=== PATIENT | male | born 1980 | race Two or more races ===

== ENCOUNTER → 2024-10-23 | Outpatient (CLI) | payer MEDICAID, SELFPAY ==
--- NOTE | 2024-10-23 | XR_ITS ---
Examination: Right elbow 3 views Technique: Elbow AP, oblique, lateral 3 views Exam date and time: October 23, 2024 1139 hours INDICATIONS: Chronic elbow pain years FINDINGS: Advanced elbow osteoarthritis Old bone densities at the medial and lateral humeral condylar regions No acute fracture There is a significant elbow effusion IMPRESSION: Advanced elbow osteoarthritis.
--- NOTE | 2024-10-23 | XR_ITS ---
Examination: Bilateral hands, 6 views. Technique: AP, Oblique, Lateral each hand total 6 views Date and time of exam: October 23, 2024 1139 hours INDICATIONS: Bilateral hand pain months. FINDINGS: Mild juxta-articular bone demineralization. No fracture or dislocation involving either hand No erosive or other significant arthritic change involving either hand Old healed fracture midportion right third metacarpal IMPRESSION: No erosive or other significant arthritic change involving either hand
== END | disposition home or self-care (01) ==
PROVIDERS: PCP Internal Medicine; Referring Provider Internal Medicine; Visit Provider Internal Medicine
DX: M19.021 Primary osteoarthritis, right elbow (principal); M79.642 Pain in left hand; M79.641 Pain in right hand; Z91.81 History of falling
CPT/HCPCS: 73080; 73130

== ENCOUNTER 2024-10-26 15:09 | Inpatient (IN) | payer MEDICAID, SELFPAY ==
[2024-10-26] VITALS (20 sets, daily range): BP systolic 102–162; BP diastolic 68–100; PULSE 90–106; RESP 11–34; TEMP 37.2–38.2; O2SAT 73–98; BMI 36.5; BMI 52.1; BMI 50.5
--- NOTE | 2024-10-26 15:44 | XR_ITS ---
Examination: AP chest single view Technique: AP portable semiupright chest single view Exam date and time: October 26, 2024 at 1632 hrs. Comparison September 17, 2024 Indications: Sepsis today Findings: Mild heart failure Moderate enlargement cardiac contour with prominent vascular congestion Pneumonia at both bases Prominent osteopenia Impression: Mild heart failure Bibasilar pneumonia
--- NOTE | 2024-10-26 15:47 | EDNOTE_ITS ---
ED General RME/HPI General Stated complaint: SOB Time Seen by Provider: 10/26/24 15:39 Arrival date/time: 10/26/24 15:09 RME / HPI RME / HPI narrative: 44 year old male with history of obesity, narcolepsy, hypertension, diabetes, schizophrenia, BHAVESH on 2L and CPAP presents to the ED BIBA for evaluation of shortness of breath today. Per medics, patient was evaluated at the clinic today for feeling unwell and while there noted to be falling asleep frequently, snoring, and saturating low on oxygen. While in the ED patient reports feeling short of breath for a few days accompanied by a cough. No other complaints reported. Denies fevers, chills, chest pain, abdominal pain, vomiting, diarrhea, or urinary symptoms. Related Data Home Medications ?Medication ?Instructions ?Recorded ?Confirmed metformin 500 mg tablet 500 mg PO BID Diabetes 07/13/20 09/16/24 carvedilol 6.25 mg tablet 6.25 mg PO BID 02/15/24 09/16/24 gemfibrozil 600 mg tablet 600 mg PO BID 02/15/24 09/16/24 haloperidol 10 mg tablet 10 mg PO BID 02/15/24 09/16/24 loratadine 10 mg tablet 10 mg PO QDAY 02/15/24 09/16/24 furosemide 20 mg tablet 20 mg PO Q OTHER DAY 03/26/24 09/16/24 fluticasone propionate 44 2 puff inhalation BID 08/28/24 09/16/24 mcg/actuation HFA aerosol inhaler Previous Rx's ?Medication ?Instructions ?Recorded ipratropium 20 mcg-albuterol 100 1 puff inhalation Q6H PRN 08/30/24 mcg/actuation mist for inhalation shortness of breath or wheezing #4 (Combivent Respimat) grams Allergies Allergy/AdvReac Type Severity Reaction Status Date / Time No Known Allergies Allergy Unverified 02/16/24 08:13 Review of Systems Review of Systems Narrative Review of Systems: GEN: No fever, no chills, no weight loss EYES: No discharge, no visual changes, no pain HEENT: No ear pain, no congestion, no sore throat PULM: +shortness of breath, + cough CV: No chest pain, no dyspnea on exertion, no palpitations GI: No nausea, no vomiting, no diarrhea, no pain, no constipation : No frequency, no urgency and no dysuria MUSC/SKEL No joint pain, no back pain SKIN: No rash PSYCH: No hallucinations, no depression HEME/LYMPH: No easy bleeding or bruising tendencies NEURO: No weakness, no headache Past Medical History Past Medical History CARDIAC: Positive Cardiac Disorders, Hypercholesterolemia and Congestive Heart Failure RESPIRATORY: Positive Chronic Obstructive Pulmonary Disease (COPD), Asthma and Sleep Apnea ENDOCRINE: Positive Endocrine Disorders PSYCHO/SOCIAL: Positive Schizophrenia and Recreational Drug Use OTHER HISTORY: Positive Chicken Pox Family History FAMILY HISTORY: Negative Family Cardiac Disorders Social History SMOKING STATUS: Never smoker SECOND HAND EXPOSURE: No ED Exam Narrative Physical exam: GENERAL APPEARANCE: Well hydrated, well nourished, episodes of narcolepsy, snoring. VITALS: All vitals were reviewed and the pulse ox is 94% on 2L nasal cannula which is adequate. HEENT: Normocephalic, atramatic, EOMI, EACs are patent. There is no bulge or retraction. Throat without erythema or exudate. Moist oromucosa. No jaundice NECK: Supple, no JVD or bruits. CARDIOVASCULAR: Heart regular without S3-S4 or murmur. No rubs or gallops. LUNGS/CHEST: Clear to auscultation bilaterally. No rales, rhonchi, or wheezing. Normal inspection. ABDOMEN: Soft, obese, nontender, with normal bowel sounds. No pulsatile masses. No rebound, rigidity, or guarding. No incarcerated hernia.` EXTREMITIES: Normal inspection and palpation. 2+ pitting edema to BLE, no clubbing or cyanosis. SKIN: Warm and dry without rashes. Normal inspection. MUSCULOSKELETAL: Normal inspection. No gross deformity, full ROM all extremities NEURO: Alert and oriented x3. Cranial nerves II through XII grossly intact. There are no other motor or sensory deficits noted. PSYCHIATRIC: Normal mood and affect. No psychosis. Course Quality Measures none Orders Category Date Time Status Bedside COVID-19 Antigen Test NOW Care 10/26/24 15:42 Active Bedside Influenza A&B Antigen Test NOW Care 10/26/24 15:43 Completed EKG (ED ONLY) *Do not use* NOW Care 10/26/24 16:06 Completed EKG (ED Only) Stat Exams 10/26/24 16:05 Draft XR chest 1V portable Stat Exams 10/26/24 15:44 Taken BNP [B-Type Natriuretic Peptide] Stat Lab 10/26/24 16:10 Completed Blood Culture (Lab) Stat Lab 10/26/24 16:00 Received CBC Stat Lab 10/26/24 16:10 Completed CMP [Comprehensive Metabolic Panel] Stat Lab 10/26/24 16:10 Completed Drug Screen,Urine Stat Lab 10/26/24 15:54 Ordered Lactic Acid [Lactate (Lactic Acid)] Stat Lab 10/26/24 16:10 Completed Procalcitonin Stat Lab 10/26/24 16:10 Completed UA, C/S IF [Urinalysis, C/S if Indicated] Stat Lab 10/26/24 15:43 Ordered Venous Blood Gas Stat Lab 10/26/24 16:10 Completed ALBUTEROL RT 0.5ml [Proventil Rt 0.5ml] Med 10/26/24 16:06 Discontinued 10 mg HHN X1 ONE Acetaminophen Ivpb [Ofirmev Inj] Med 10/26/24 17:32 Ordered 1,000 mg in 100 ml IV X1 Acetaminophen Tab [Tylenol ES Tab] Med 10/26/24 15:42 Discontinued 1,000 mg PO X1 ONE Oseltamivir [Tamiflu] Med 10/26/24 16:35 Discontinued 75 mg PO X1 ONE Sodium Chloride 0.9% 1000 ml [Ns] 2,000 ml Med 10/26/24 17:43 Ordered IV 150 mls/hr Sodium Chloride 0.9% 1000 ml [Ns] 2,000 ml Med 10/26/24 15:44 Discontinued IV 999 mls/hr Sodium Chloride Rt Katarina 0.9% [NS Rt Katarina 0.9%] Med 10/26/24 16:06 Active 3 ml INH PRN PRN cefTRIAXone/D5w 1gm IV premix [Rocephin/D5w 1gm IV Med 10/26/24 15:43 Discontinued premix] 50 ml IV X1 BiPAP / CPAP NOW RT 10/26/24 16:08 Active Vital Signs Vital signs: Vital Signs Temperature 100.8 F H 10/26/24 15:13 Pulse Rate 101 H 10/26/24 15:13 Respiratory Rate 22 H 10/26/24 15:13 Blood Pressure 160/68 H 10/26/24 15:13 Pulse Oximetry (%) 94 L 10/26/24 15:13 Oxygen Delivery Method Nasal Cannula 12/20/24 15:13 Oxygen Flow Rate 2 10/26/24 15:13 [facility] Patient data External records reviewed:: [facility] previous records (I reviewed admission 09/16/2024 through 09/19/2024) Clinical information provided by:: patient Social determinants that could affect healthcare access:: none Patient has the following chronic illnesses:: obesity, narcolepsy, hypertension, diabetes, schizophrenia, BHAVESH on 2L and CPAP How is presenting disease/condition affected by chronic disease/condition?: e xacerbated by Evaluation data The following diagnostics were reviewed and interpreted by me:: lab results and radiology exam(s) Lab and/or radiology exams considered but not ordered:: None Interpretation Summary: As noted above Medications Medications considered but not ordered:: None Medication administrations:: Medication Administration History Sodium Chloride (Sodium Chloride Rt Katarina 0.9% 3 Ml Nebu) 3 ml INH PRN PRN PRN Reason: SOLN Stop: 11/25/24 16:05 Last Admin: 10/26/24 16:45 Dose: 3 ml Documented By: ELY Discontinued Medications Acetaminophen (Acetaminophen 500 Mg Tablet) 1,000 mg PO X1 ONE Stop: 10/26/24 15:43 Albuterol (Albuterol Rt 2.5 Mg/0.5 Ml Nebu) 10 mg HHN X1 ONE Stop: 10/26/24 16:07 Last Admin: 10/26/24 16:45 Dose: 10 mg Documented By: ELY Ceftriaxone Sodium/Dextrose (Rocephin/D5w 1gm Iv Premix) 50 mls @ 100 mls/hr IV X1 ONE Stop: 10/26/24 16:12 Last Admin: 10/26/24 17:11 Dose: 100 mls/hr Documented By: FREDERICK Sodium Chloride (Ns) 2,000 mls @ 999 mls/hr IV .Q2H1M ONE Stop: 10/26/24 17:44 Last Admin: 10/26/24 17:17 Dose: Not Given Documented By: FREDERICK Non-Admin Reason: Cancelled by Provider Oseltamivir Phosphate (Oseltamivir 6 Mg/Ml) 75 mg PO X1 ONE Stop: 10/26/24 16:36 See above Consultations Consultation(s) initiated? (list below): Yes Consultation #1 (Physician, Specialty, Details): I spoke with resident Dr. Lobato working with Dr. Andrews. Discussed patients PMHx, HPI, ED course, exam findings, labs, and radiology results. Diagnosis Differential Diagnosis ED Complaint MDM: URI, viral illness, pneumonia Most likely diagnosis given after review of the tests above:: Pneumonia. Influenza B. Sepsis Admission Indicated Admission indicated?: indicated Explain why admission is indicated or not indicated:: Pneumonia. Influenza B. Sepsis. Also history of narcolepsy and severe sleep apnea Admission Request Was there a request for admission?: Yes Admission Attestation Admission request attestation: Discussed case with [] from Hospitalist service regarding admission. Discussed patients ED course, exam findings, labs, and radiology results. The Hospitalist [agrees,declines] to accept the patient for admission. Disposition Plan Disposition Plan: Admit Medical Decision Making MDM Narrative MDM Narrative: CBC negative. CMP negative. Venous blood gas showing no CO2 retention. Lactic acid and procalcitonin negative. COVID-19 negative. Positive for influenza B. BNP is negative. Chest x-ray interpreted by me: Cannot rule out CHF. Heart is enlarged. Cannot rule out pneumonia. Mediastinum normal. Normal bones. No pneumothorax. In the emergency department the patient was given IV fluid and Tylenol and IV antibiotic according to the septic protocol. I did not give him a bolus because he is had a history of CHF and the chest x-ray may consistent with CHF however BNP is negative. The patient was also put on a BiPAP treatment and albuterol in nebulizer treatment by me. Twelve-lead EKG showing according to my interpretation: Normal sinus rhythm. Heart rate of 99. Normal axis. No ST elevation or depression. No PVC. No STEMI. Regular rate and rhythm. 5:40 PM, I spoke to and discussed with Dr. Lobato, resident of Dr. Sims, hospitalist on-call. She is assessing the patient for admission now. Critical care time is approximately 45 minutes excluding any procedure. The high probability of sudden, clinically significant deterioration in the patient?s condition required the highest level of my preparedness to intervene urgently. The services I provided to this patient were to treat and/or prevent clinically significant deterioration. Services included the following: chart data review, reviewing nursing notes and/or old charts, documentation time, oracle hyperion consultant collaboration regarding findings and treatment options, medication orders and management, direct patient care, vital sign assessments and ordering, interpreting and reviewing diagnostic studies and lab tests. Aggregate critical care time includes only time during which I was engaged in work directly related to the patient?s care, as described above, whether at bedside or elsewhere in the Emergency Department. It did not include time spent performing other reported procedures or the services of residents, students, nurses or physician assistants. Differential Diagnosis Differential Diagnosis: URI, viral illness, pneumonia Lab Data 10/26/24 16:10 10/26/24 16:10 Labs: Lab Results 10/26/24 Range/Units 16:10 WBC 9.4 (3.8-10.6) Thou/mm3 RBC 4.85 (4.50-5.90) Miln/mm3 Hgb 13.7 (13.5-16.0) g/dL Hct 42.2 (41.0-53.0) % MCV 87 (80-100) fL MCH 28.2 (25.0-35.0) pg MCHC 32.5 (31.0-37.0) g/dl RDW Std Deviation 50.5 H (35.1-43.9) fL Plt Count 216 (140-440) Thou/mm3 Neut % (Auto) 73 (37-80) % Lymph % (Auto) 14 (10-50) % [place] % (Auto) 11 (0-12) % Eos % (Auto) 1 (0-10) % Baso % (Auto) 1 (0-2.5) % Neut # (Auto) 6.8 (1.8-7.7) Thou/mm3 Lymph # (Auto) 1.3 (1.0-4.8) Thou/mm3 [place] # (Auto) 1.0 H (0.0-0.8) Thou/mm3 Eos # (Auto) 0.1 (0.0-0.5) Thou/mm3 Baso # (Auto) 0.1 (0.0-0.2) Thou/mm3 Immature Gran # (Auto) 0.08 H (0.00-0.00) Thou/mm3 Absolute Nucleated RBC 0.00 (0.00-0.00) Thou/mm3 Immature Gran % 1 H (0-0) % Nucleated RBC % 0 (0) /100 WBC VBG pH 7.40 (7.33-7.66) VBG pCO2 47 (36-56) mmHg VBG pO2 38 (15-58) mmHg VBG O2 Sat (Daryl) 75 L (96-97) % VBG Base Excess 4 H (-3-3) Sodium 135 L (136-145) mMol/L Potassium 3.6 (3.4-5.1) mMol/L Chloride 99 (98-107) mMol/L Carbon Dioxide 29.6 (20.0-31.0) mMol/L Anion Gap 6 L (7-16) BUN 13 (9-23) mg/dL Creatinine 1.0 (0.6-1.3) mg/dL Estim Creat Clear Calc 133.4 (>60) mL/min eGFR > 60 (60 - ) See Note BUN/Creatinine Ratio 13 (12-20) Ratio Glucose 126 H (74-106) mg/dL Calculated Osmolality 272 L (275-295) Lactic Acid 0.8 (0.4-2.0) mMol/L Calcium 8.8 (8.3-10.6) mg/dL Corrected Calcium 8.8 (8.5-10.1) mg/dL Total Bilirubin 0.3 (0.3-1.2) mg/dL AST 34 (0-34) U/L ALT 66 H (10-49) U/L Alkaline Phosphatase 87 (46-116) U/L B-Natriuretic Peptide 20 (0-100) pg/mL Total Protein 7.5 (5.7-8.2) gm/dL Albumin 4.5 (3.5-5.0) gm/dL Globulin 3.0 (2.3-3.5) gm/dL Albumin/Globulin Ratio 1.5 (1.2-2.2) Procalcitonin 0.15 (0.0-0.49) ng/ml Discharge Plan Plan Patient Disposition: Admit Acute Care w/in Hospital Disposition Comment: Stable for admit Prescriptions/Referrals Prescriptions/Med Rec: No Action metformin 500 mg Tablet 500 mg PO BID furosemide 20 mg Tablet 20 mg PO Q OTHER DAY carvedilol 6.25 mg tablet 6.25 mg PO BID gemfibrozil 600 mg tablet 600 mg PO BID Patient Comments: TAKE 1 TABLET BY MOUTH TWICE A DAY 30 MINUTES BEFORE MORNING AND EVENING MEAL haloperidol 10 mg tablet 10 mg PO BID Patient Comments: TAKE 1 TABLET BY MOUTH TWICE A DAY loratadine 10 mg tablet 10 mg PO QDAY Patient Comments: TAKE 1 TABLET BY MOUTH EVERY DAY fluticasone propionate 44 mcg/actuation HFA aerosol inhaler 2 puff INHALATION BID Patient Comments: TAKE 2 PUFFS BY MOUTH TWICE A DAY Combivent Respimat 20-100 mcg/actuation mist 1 puff inhalation Q6H PRN (Reason: shortness of breath or wheezing) Qty: 4 0RF Referrals: No Primary/Family,Physician [Primary Care Provider] - In 1 week Problem List Clinical Impression: Pneumonia, Influenza B, Narcolepsy, Fever Patient/Caregiver Discharge Instructions Print Language: Spanish Stand Alone Forms: Domitila Award Info., Patient Portal Info Letter
--- NOTE | 2024-10-26 16:03 | PC.NURSE ---
biba from home due to extreme sleepiness that is compromising his airway. o2 sats while awake are 96 on room air.PMH cpap at night, dm, obesity, chf. When asleep, o2 sats dropped to mid 80s.
--- NOTE | 2024-10-26 16:05 | EKG_ITS ---
[facility] Test Date: 2024-10-26 Pat Name: CIERRA ROBERTS Department: Room: - Gender: Male Manager Content: : 1980 Requested By: Alexandre Basilio Order Number: [id number] Reading MD: Alexandre Basilio Measurements Intervals [place] Rate: 99 P: 76 FL: 172 QRS: 55 QRSD: 92 T: 59 QT: 337 QTc: 433 Interpretive Statements SINUS RHYTHM LOW QRS VOLTAGE IN PRECORDIAL LEADS [QRS DEFLECTION < 1.0 mV IN CHEST LEADS] Compared to ECG 09/16/2024 13:07:48 No significant changes /store/S0/[id number].pdf
[2024-10-26 16:18] LABS: Lactate (Lactic Acid) 0.8 mMol/L (0.4-2.0)
[2024-10-26 16:19] LABS: Base Excess, Venous 4 (-3-3); O2 Saturation, Venous 75 % (96-97); PCO2, Venous 47 mmHg (36-56); PO2, Venous 38 mmHg (15-58)
[2024-10-26 16:21] LABS: Basophils # (Auto) 0.1 Thou/mm3 (0.0-0.2); Basophils % (Auto) 1 % (0-2.5); Eosinophils # (Auto) 0.1 Thou/mm3 (0.0-0.5); Eosinophils % (Auto) 1 % (0-10); Hematocrit 42.2 % (41.0-53.0); Hemoglobin 13.7 g/dL (13.5-16.0); Immature Granulocytes % (Auto) 1 % (0-0); Immature Granulocytes Auto 0.08 Thou/mm3 (0.00-0.00); Lymphocytes # (Auto) 1.3 Thou/mm3 (1.0-4.8); Lymphocytes % (Auto) 14 % (10-50); Mean Corpuscular HGB Conc 32.5 g/dl (31.0-37.0); Mean Corpuscular Hemoglobin 28.2 pg (25.0-35.0); Mean Corpuscular Volume 87 fL (80-100); Monocytes % (Auto) 11 % (0-12); Neutrophils # (Auto) 6.8 Thou/mm3 (1.8-7.7); Neutrophils % (Auto) 73 % (37-80); Nucleated Red Blood Cell % 0 /100 WBC (0); Platelet Count 216 Thou/mm3 (140-440); RDW Standard Deviation 50.5 fL (35.1-43.9); Red Blood Count 4.85 Miln/mm3 (4.50-5.90); White Blood Count 9.4 Thou/mm3 (3.8-10.6)
[2024-10-26] MEDS: SODIUM CHLORIDE RT SOL 0.9% 3 ML NEBU INH (16:45)
[2024-10-26] MEDS: ALBUTEROL RT 2.5 MG/0.5 ML NEBU 10 MG HHN (16:45)
[2024-10-26 16:47] LABS: Alanine Aminotransferase 66 U/L (10-49); Albumin, Serum 4.5 gm/dL (3.5-5.0); Albumin/Globulin Ratio 1.5 (1.2-2.2); Alkaline Phosphatase 87 U/L (46-116); Anion Gap 6 (7-16); Aspartate Amino Transferase 34 U/L (0-34); BUN/Creatinine Ratio 13 Ratio (12-20); Bilirubin,Total 0.3 mg/dL (0.3-1.2); Blood Urea Nitrogen 13 mg/dL (9-23); Calcium 8.8 mg/dL (8.3-10.6); Calcium (Corrected) 8.8 mg/dL (8.5-10.1); Carbon Dioxide 29.6 mMol/L (20.0-31.0); Chloride 99 mMol/L (98-107); Estimated Creatinine Clearance 133.4 mL/min (>60); Glucose 126 mg/dL (74-106); Osmolality,Calculated 272 (275-295); Potassium 3.6 mMol/L (3.4-5.1); Procalcitonin 0.15 ng/ml (0.0-0.49); Sodium 135 mMol/L (136-145); Total Protein 7.5 gm/dL (5.7-8.2); eGFR > 60 See Note
[2024-10-26 16:52] LABS: B-Type Natriuretic Peptide 20 pg/mL (0-100)
[2024-10-26] MEDS: cefTRIAXone/D5w 1gm IV premix 50 ML IV (17:11)
[2024-10-26] MEDS: ACETAMINOPHEN IVPB 1,000 MG/100 ML VIAL 250 MG IV (17:54)
[2024-10-26] MEDS: OSELTAMIVIR 6 MG/ML 75 MG PO (18:08)
--- NOTE | 2024-10-26 18:16 | ESHP_ITS ---
<Statement entered by Ella Josue MD - 10/28/24 06:49> Patient was seen and examined by me personally. I agree with most of the assessment and plan as discussed with the landscape maintenance internship physician, and my attending, Dr. Andrews. 44M with obesity/OHS, BHAVESH on 2L home O2 and CPAP, HTN, T2DM, schizophrenia and history of intubation for respiratory failure who was admitted for acute on chronic hypoxic respiratory failure secondary to influenza B. Sats low in 70-80s and patient placed on BiPAP. Started on Tamiflu; levaquin for possible bacterial pneumonia; breathing treatments. CXR revealed vascular congestion, will try lasix and reevaluate clinically. SSI for T2DM. Ella Josue MD, PGY-3 Documentation for date of: 10/26/24 HPI History of Present Illness Chief complaint: Fever, low saturations History of present illness: Patient is drowsy, responding to verbal commands and following commands appropriately but falling asleep in the middle of the conversation and patient is on BiPAP. Some of the history was taken from nurse and chart review. A 44 year old male with past medical history of obesity, hypertension, type 2 diabetes, schizophrenia, obstructive sleep apnea on 2 L oxygen and CPAP brought the hospital in ambulance with chief complaints of low oxygen saturations and altered sensorium. Per patient, patient was living in rehab facility since 1 month and developed fever since 2 days for which patient went to the clinic. In the clinic patient was noted to be drowsy and on checking vitals found to have low oxygen saturations 70's for which ambulance was called and patient was started on oxygen and brought to the ED. In the ED, patient was noted to be drowsy, but easily awakened and patient was started on BiPAP. Also reported that he is having mild cough associated with phlegm which is whitish in color. Denies chest pain, palpitations, PND, orthopnea, abdominal pain, nausea, vomiting, burning micturition, abdominal distention. Per nurse on the bedside, patient reported that he is not feeling safe in the rehab facility. ED Course: -Initial vitals were blood pressure 160/68 mmHg, pulse rate 101 bpm, respiratory rate 22/min, temperature 100.8 ?F, SpO2 94% with BiPAP -Labs significant for CBC is within normal limits. VBG showed pH 7.4, pCO2 47, pO2 38. Sodium is 135, rest of the BMP is within normal limits. AST is 34, ALT is 66, procalcitonin 0.15, BNP is 20. Patient tested positive for influenza B. Chest x-ray showed bilateral moderate vascular congestion with blunting of bilateral costophrenic angles. -In the ED, patient was given nebulizations, ceftriaxone, Tamiflu, IV fluids. -Patient was admitted for acute hypoxic respiratory failure secondary to influenza B Past medical history: obesity, obstructive sleep apnea, hypertension, type 2 diabetes, schizophrenia, hyperlipidemia Past surgical history: Not significant Social history:former smoker, former recreational drug user, denies alcohol use Review of Systems Review of Systems ROS Unobtainable: unobtainable due to mental status Exam Vital Signs Temp Pulse Resp BP Pulse Ox O2 Del Method O2 Flow Rate 99.0 F 96 28 H 150/88 H 96 Room Air 2 10/26/24 16:25 10/26/24 16:45 10/26/24 16:43 10/26/24 16:25 10/26/24 16:43 10/26/24 16:25 10/26/24 15:13 FiO2 50 10/26/24 16:43 Narrative Exam General: Drowsy. Morbidly obese. On BiPAP HEENT: Normocephalic, atraumatic, mucous membranes moist. Heart: Regular rate and rhythm, no murmurs. Lungs: Clear to auscultation with no wheezing or crackles. Overall decreased breath sounds due to body habitus. Abdomen: Soft, nondistended, nontender, positive bowel sounds. ?No guarding or rebound tenderness. Neurologic: Drowsy but able to follow commands and able to move all 4 extremities with no focal neurological deficit. Extremities: Bilateral lower extremity pitting pedal edema was noted with erythema extending up to mid calf. Skin: No rash or ecchymoses. Results: Labs 10/27/24 05:45 10/26/24 16:10 Labs: Short CBC 10/26/24 Range/Units 16:10 WBC 9.4 (3.8-10.6) Thou/mm3 Hgb 13.7 (13.5-16.0) g/dL Hct 42.2 (41.0-53.0) % Plt Count 216 (140-440) Thou/mm3 BMP 10/26/24 16:10 Sodium 135 L Potassium 3.6 Chloride 99 Carbon Dioxide 29.6 BUN 13 Creatinine 1.0 Glucose 126 H Calcium 8.8 Liver Function 10/26/24 Range/Units 16:10 Total Bilirubin 0.3 (0.3-1.2) mg/dL AST 34 (0-34) U/L ALT 66 H (10-49) U/L Alkaline Phosphatase 87 (46-116) U/L Albumin 4.5 (3.5-5.0) gm/dL ABG Interpretation ABG results: 10/26/24 16:10 VBG pH 7.40 VBG pCO2 47 VBG pO2 38 VBG Base Excess 4 H Quality Measures Quality Measures none Medications Home Medications and Allergies Home Medications ?Medication ?Instructions ?Recorded ?Confirmed ?Type metformin 500 mg tablet 500 mg PO BID Diabetes 07/13/20 09/16/24 History carvedilol 6.25 mg tablet 6.25 mg PO BID 02/15/24 09/16/24 History gemfibrozil 600 mg tablet 600 mg PO BID 02/15/24 09/16/24 History haloperidol 10 mg tablet 10 mg PO BID 02/15/24 09/16/24 History loratadine 10 mg tablet 10 mg PO QDAY 02/15/24 09/16/24 History furosemide 20 mg tablet 20 mg PO Q OTHER DAY 03/26/24 09/16/24 History fluticasone propionate 44 2 puff inhalation BID 08/28/24 09/16/24 History mcg/actuation HFA aerosol inhaler Allergies Allergy/AdvReac Type Severity Reaction Status Date / Time No Known Allergies Allergy Unverified 02/16/24 08:13 Visit Medications Acetaminophen (Acetaminophen 325 Mg Tablet) 650 mg PO Q6H PRN PRN Reason: Fever >101.5 Stop: 11/25/24 18:12 Sodium Chloride (Ns) 2,000 mls @ 150 mls/hr IV .[id number] ONE Stop: 10/27/24 07:02 Last Admin: 10/26/24 18:12 Dose: Not Given Ondansetron HCl (Ondansetron Inj 2 Mg/Ml Inj 2 Ml) 4 mg IV Q6H PRN; Protocol PRN Reason: NAUSEA OR VOMITING Stop: 11/25/24 18:12 Oseltamivir Phosphate (Oseltamivir 75 Mg Capsule) 75 mg PO BID JEANNE Stop: 10/31/24 09:01 Pantoprazole Sodium (Pantoprazole 40 Mg Tablet) 40 mg PO QDAY JEANNE Stop: 11/26/24 08:59 Sodium Chloride (Sodium Chloride Rt Katarina 0.9% 3 Ml Nebu) 3 ml INH PRN PRN PRN Reason: SOLN Stop: 11/25/24 16:05 Last Admin: 10/26/24 16:45 Dose: 3 ml Discontinued Medications Acetaminophen (Acetaminophen 500 Mg Tablet) 1,000 mg PO X1 ONE Stop: 10/26/24 15:43 Last Admin: 10/26/24 18:12 Dose: Not Given Albuterol (Albuterol Rt 2.5 Mg/0.5 Ml Nebu) 10 mg HHN X1 ONE Stop: 10/26/24 16:07 Last Admin: 10/26/24 16:45 Dose: 10 mg Ceftriaxone Sodium/Dextrose (Rocephin/D5w 1gm Iv Premix) 50 mls @ 100 mls/hr IV X1 ONE Stop: 10/26/24 16:12 Last Infusion: 10/26/24 18:09 Dose: Infused Sodium Chloride (Ns) 2,000 mls @ 999 mls/hr IV .Q2H1M ONE Stop: 10/26/24 17:44 Last Admin: 10/26/24 17:17 Dose: Not Given Acetaminophen (Ofirmev Inj) 1,000 mg in 100 mls @ 250 mls/hr IV X1 ONE Stop: 10/26/24 17:55 Last Admin: 10/26/24 17:54 Dose: 250 mls/hr Oseltamivir Phosphate (Oseltamivir 6 Mg/Ml) 75 mg PO X1 ONE Stop: 10/26/24 16:36 Last Admin: 10/26/24 18:08 Dose: 75 mg Assessment & Plan Plan A 44 year old male with past medical history of obesity, hypertension, type 2 diabetes, schizophrenia, obstructive sleep apnea on 2 L oxygen and CPAP brought the hospital in ambulance with chief complaints of low oxygen saturations and altered sensorium and admitted in the hospital for acute hypoxic respiratory failure secondary to influenza B # Acute on chronic hypoxic respiratory failure # Secondary to influenza B pneumonia # History of BHAVESH/OHS on CPAP at home # History of smoking, stopped now # History of recurrent respiratory failures, intubated in 2019, 02/2024, 09/2024 #? Suspected superimposed bacterial pneumonia -Patient had history of recurrent respiratory failure was with intubations, BHAVESH/OHS using CPAP at home -Brought to the hospital by ambulance in view of low oxygen saturations and altered sensorium -Patient reported that he is having fever since 2 days associated with cough and expectoration. -Noted to have saturation of 70-80 in the ED and was started on BiPAP -Noted to have temperature of 101.8 ?F in the ED. VBG is within normal limits. -CBC within normal limits, chest x-ray showed bilateral moderate vascular congestion with blunting of costophrenic angles -Tested positive for influenza B. Negative for COVID and influenza A. -In the ED, patient received IV fluids, acetaminophen, Tamiflu and started on BiPAP Plan -ABG is ordered. -Will continue BiPAP overnight and wean off to oxygen tomorrow based on patient's condition. -Started on Tamiflu 75 Mg p.o. twice daily -N.p.o. for now in view of current patient mental status and risk of aspiration. -Will continue to monitor patient's mentation. -Started on levofloxacin 750 Mg IV daily in view of suspected superimposed bacterial pneumonia. # History of HFpEF -Patient denies chest pain but noted to have bilateral lower extremity swelling -Patient is using furosemide 20 Mg p.o. daily and carvedilol 6.25 Mg twice daily. -Patient does not appear to be clinically fluid overloaded right now. -BNP is <20, negative troponins. Chest x-ray showed mild cardiomegaly with bilateral mild vascular congestion. -EKG showed normal sinus rhythm with no significant ST and T wave changes. -Echo done in 02/28- Normal LV size and function. Mild LVH. Estimated EF 65-70%. Normal RV size and function. Trace TR. IVC mildly dilated. Plan -A single dose of furosemide 40 Mg IV was given. -Will reevaluate the patient tomorrow and will continue Lasix based on his condition. #History of diabetes -Patient is using metformin 500 Mg p.o. twice daily. -HbA1c on 08/28/2024 is 5.8 -Will monitor for blood sugars and will add insulin as needed. # History of hypertension -Patient is using furosemide, carvedilol at home -Blood pressure at the time of admission is 160/68 mmHg -Repeat blood pressure is 102/100 mmHg Plan -Will continue to monitor blood pressures and will add medications if needed #History of schizophrenia -Held antipsychotics and antidepressants in view of patient's current condition Hospital Maintenance: Dispo: tele DVT ppx: lovenox GI ppx:protonix Diet: N.p.o. IV lines: Peripheral Code status: Full code Patient plan of care was discussed with the attending physician, Dr. Mahmood and senior resident Dr. Joselo Oshea, PGY1 Attending Provider Attestation/Addendum Face to face evaluation was performed by me. I have personally seen and examined the patient. I discussed the assessment and plan with the entire medicine team. I reviewed available medical records, imaging studies, laboratory results. I agree with the above subjective data, objective findings, assessment and plan except as corrected by me or noted below Acute on chronic hypoxic and hypercapnic respiratory failure influenza B respiratory tract infection Obesity hypoventilation syndrome Obstructive sleep apnea Hyperlipidemia History of heart failure with preserved ejection fraction, seems to be compensated on admission -Continue oseltamivir, breathing treatments. Get an ABG as his clinical picture does not correlate with VBG. Last time he was upgraded to ICU and ended up intubated on mechanical ventilation. BiPAP. Close monitoring DVT prophylaxis
[2024-10-26 18:49] LABS: Base Excess 2 (-3-3); HCO3 31 mEq/L (20-26); Inspired Oxygen, FIO2 50 %; O2 Saturation 95 % (91-98); PCO2 63 mmHg (32.0-48.0); PO2 77 mmHg (83-108); pH, Arterial 7.29 (7.35-7.45)
[2024-10-26 18:50] LABS: Allen Test Performed/OK; Puncture Site Right Radial
[2024-10-26] MEDS: FUROSEMIDE INJ 10 MG/ML 4ML VIAL 40 MG IVP (19:00)
[2024-10-26] MEDS: LEVOFLOXACIN/D5W 750MG IVPB 750 MG/150 ML BAG 100 MG IV (19:05)
[2024-10-26] MEDS: ENOXAPARIN SOD INJ 60 MG/0.6 ML SYRINGE SC (19:06)
[2024-10-26] MEDS: ONDANSETRON INJ 2 MG/ML INJ 2 ML 4 MG IV (19:10)
[2024-10-26 21:36] LABS: Base Excess 4 (-3-3); HCO3 33 mEq/L (20-26); Inspired Oxygen, FIO2 50 %; O2 Saturation 96 % (91-98); PCO2 71 mmHg (32.0-48.0); PO2 86 mmHg (83-108); pH, Arterial 7.27 (7.35-7.45)
[2024-10-26 21:49] LABS: Allen Test Performed/OK; Puncture Site Left Radial
[2024-10-27] VITALS (27 sets, daily range): BP systolic 98–180; BP diastolic 54–100; PULSE 63–115; RESP 18–35; TEMP 36.5–36.9; O2SAT 86–99
[2024-10-27] MEDS: ACETAMINOPHEN 325 MG TABLET 650 MG PO (00:05)
[2024-10-27 03:45] LABS: Base Excess 4 (-3-3); HCO3 35 mEq/L (20-26); Inspired Oxygen, FIO2 21 %; O2 Saturation 93 % (91-98); PCO2 88 mmHg (32.0-48.0); PO2 73 mmHg (83-108); pH, Arterial 7.21 (7.35-7.45)
[2024-10-27 03:46] LABS: Allen Test Performed/OK; Puncture Site Right Radial
[2024-10-27 06:00] LABS: Basophils # (Auto) 0.1 Thou/mm3 (0.0-0.2); Basophils % (Auto) 1 % (0-2.5); Eosinophils % (Auto) 0 % (0-10); Hematocrit 45.9 % (41.0-53.0); Hemoglobin 14.5 g/dL (13.5-16.0); Immature Granulocytes % (Auto) 2 % (0-0); Immature Granulocytes Auto 0.17 Thou/mm3 (0.00-0.00); Lymphocytes # (Auto) 0.8 Thou/mm3 (1.0-4.8); Lymphocytes % (Auto) 7 % (10-50); Mean Corpuscular HGB Conc 31.6 g/dl (31.0-37.0); Mean Corpuscular Hemoglobin 28.1 pg (25.0-35.0); Mean Corpuscular Volume 89 fL (80-100); Monocytes % (Auto) 9 % (0-12); Neutrophils # (Auto) 9.1 Thou/mm3 (1.8-7.7); Neutrophils % (Auto) 81 % (37-80); Nucleated Red Blood Cell # 0.02 Thou/mm3 (0.00-0.00); Nucleated Red Blood Cell % 0 /100 WBC (0); Platelet Count 216 Thou/mm3 (140-440); RDW Standard Deviation 51.6 fL (35.1-43.9); Red Blood Count 5.16 Miln/mm3 (4.50-5.90); White Blood Count 11.2 Thou/mm3 (3.8-10.6)
--- NOTE | 2024-10-27 06:23 | EVENTNT_ITS ---
Documentation for date of: 10/27/24 Event Note Event Note: Got a call from RT around 04:00 regarding critical value of ABG. Respiratory acidosis worsened from ABG taken at 21:30PM. Changed patient's vent settings to IPAP 22 and EPAP 8, decreased FiO2 from 60 to 50%, and I-time from 0.7 to 0.4. Ordered ABG around 5:30AM, however VBG was drawn, so redraw ABG is pending, along with morning labs. D/t patient's comorbid conditions, tendency to easily take off his BIPAP, and possibility of requiring intubation from impending respiratory failure, will transfer to ICU at this time for close monitoring, and once patient's acidosis improves can be safely downgraded back to medicine floor s. Patient's care and plan discussed with my attending, Dr. Olivera. Leticia Du, PGY-2 Face to face evaluation was performed by me. I have personally seen and examined the patient. I discussed the assessment and plan with the entire medicine team. I reviewed available medical records, imaging studies, laboratory results. I agree with the above subjective data, objective findings, assessment and plan except as corrected by me or noted below Patient's hypercapnia got worse since admission, On BIPAP, sitter also ordered for him as he took off his BiPAP mask repeat ABG Upgrade to ICU for closer monitroing for now on BiPAP, low threshold for intubation
[2024-10-27 06:40] LABS: Anion Gap 6 (7-16); BUN/Creatinine Ratio 17 Ratio (12-20); Blood Urea Nitrogen 15 mg/dL (9-23); Calcium 8.5 mg/dL (8.3-10.6); Carbon Dioxide 31.9 mMol/L (20.0-31.0); Chloride 97 mMol/L (98-107); Creatinine (Component) 0.9 mg/dL (0.6-1.3); Estimated Creatinine Clearance 145.4 mL/min (>60); Glucose 171 mg/dL (74-106); Magnesium 2.2 mg/dL (1.6-2.6); Osmolality,Calculated 274 (275-295); Phosphorous 4.5 mg/dL (2.4-5.1); Potassium 4.3 mMol/L (3.4-5.1); Sodium 135 mMol/L (136-145); eGFR > 60 See Note
[2024-10-27 06:50] LABS: Allen Test Not Performed; Base Excess 4 (-3-3); HCO3 35 mEq/L (20-26); Inspired Oxygen, FIO2 50 %; O2 Saturation 92 % (91-98); PCO2 87 mmHg (32.0-48.0); PO2 74 mmHg (83-108); pH, Arterial 7.22 (7.35-7.45)
[2024-10-27 06:52] LABS: Puncture Site Right Radial
[2024-10-27 08:25] LABS: Troponin I < 0.020 ng/mL (0.0-0.045)
[2024-10-27] MEDS: OSELTAMIVIR 75 MG CAPSULE PO ×2 (09:28→20:00)
[2024-10-27] MEDS: PANTOPRAZOLE 40 MG TABLET PO (09:28)
[2024-10-27] MEDS: DEXMEDETOMIDINE 200 MCG IVPB 200 MCG/50 ML BOTTLE 7.312 MCG IV (09:28)
[2024-10-27] MEDS: ENOXAPARIN SOD INJ 60 MG/0.6 ML SYRINGE SC (09:28)
[2024-10-27] MEDS: DEXMEDETOMIDINE 200 MCG IVPB 200 MCG/50 ML BOTTLE 21.936 MCG IV ×5 (12:08→22:12)
[2024-10-27 12:37] LABS: Base Excess 6 (-3-3); HCO3 34 mEq/L (20-26); O2 Saturation 85 % (91-98); PCO2 64 mmHg (32.0-48.0); pH, Arterial 7.34 (7.35-7.45)
[2024-10-27 12:38] LABS: Inspired Oxygen, FIO2 80 %
[2024-10-27 12:40] LABS: Allen Test Not Performed; PO2 45 mmHg (83-108); Puncture Site Left Radial
--- NOTE | 2024-10-27 13:12 | PD.RESCONSUL ---
HPI Data of Consult Requesting Physician: Lee Yusuf MD Admitting Provider: Rudy Andrews MD Attending Provider: Lee Yusuf MD Primary Care Provider: Rod Hernandez PA-C Consult Narrative Reason for consult: Acute encephalopathy with AHHRF History of present illness: 44 years old male with past medical history of obesity, hypertension, type 2 diabetes, schizophrenia, obstructive sleep apnea on 2 L oxygen/CPAP and hx of substance/alcohol abuse from alcohol rehab facility initially admitted to the floor for acute hypoxic hypercapnic respiratory failure and sepsis in setting of Influenza after he was started on Bi-pap along with Levofloxacin and Oseltamavir. Patient was upgraded to ICU overnight for acute encephalopathy and worsening respiratory failure as patient was becoming agitated from BiPAP and taking it off frequently. Upon ICU transfer patient was on BiPAP but ABG showed pH of 7.21, pCO2 of 88, HCO3 32, BiPAP settings were adjusted and patient was started on Precedex for agitation. In a.m. patient was evaluated and was found to be alert and oriented to name, , place, and was tolerating BiPAP well. Concern for possible intubation was initially present but as patient's condition/mentation improved decision to continue patient on BiPAP was made. Will continue to monitor patient's condition, adjust BiPAP settings and consider possible need for intubation if patient's condition deteriorates. Past medical history: obesity, BHAVESH, OHS, HTN, NIDDM II, schizophrenia, HLD, Substance use Past surgical history: Not significant Social history:former smoker, former recreational drug user, denies alcohol use cc:: cc: Lee Yusuf MD Review of Systems Review of Systems Systems Reviewed: All systems reviewed, normal except as documented Exam Vital Signs Temp Pulse Resp BP Pulse Ox O2 Del Method O2 Flow Rate 98.4 F 97 25 H 125/71 86 L BiPAP 2 10/27/24 03:46 10/27/24 12:00 10/27/24 12:00 10/27/24 12:00 10/27/24 12:00 10/27/24 12:00 10/26/24 15:13 FiO2 70 10/27/24 12:00 Narrative Exam General: Somnolent but responsive, Morbidly obese, On BiPAP HEENT: Normocephalic, atraumatic, mucous membranes moist. Heart: Regular rate and rhythm, no murmurs. Lungs: Clear to auscultation with no wheezing or crackles. Overall decreased breath sounds due to body habitus. Abdomen: Soft, non distended, non tender, positive bowel sounds. ?No guarding or rebound tenderness. Neurologic: AAOx3 but somnolent, able to follow commands and able to move all 4 extremities with no focal neurological deficit. Extremities: Bilateral lower extremity pitting pedal edema was noted with erythema extending up to mid calf. Skin: No rash or ecchymoses. Results Labs 10/30/24 05:09 10/30/24 05:09 Labs: Short CBC 10/26/24 10/27/24 Range/Units 16:10 05:45 WBC 9.4 11.2 H (3.8-10.6) Thou/mm3 Hgb 13.7 14.5 (13.5-16.0) g/dL Hct 42.2 45.9 (41.0-53.0) % Plt Count 216 216 (140-440) Thou/mm3 BMP 10/26/24 10/27/24 16:10 05:45 Sodium 135 L 135 L Potassium 3.6 4.3 D Chloride 99 97 L Carbon Dioxide 29.6 31.9 H BUN 13 15 Creatinine 1.0 0.9 Glucose 126 H 171 H Calcium 8.8 8.5 Cardiac Enzymes 10/27/24 Range/Units 05:45 Troponin I < 0.020 (0.0-0.045) ng/mL Liver Function 10/26/24 Range/Units 16:10 Total Bilirubin 0.3 (0.3-1.2) mg/dL AST 34 (0-34) U/L ALT 66 H (10-49) U/L Alkaline Phosphatase 87 (46-116) U/L Albumin 4.5 (3.5-5.0) gm/dL ABG Interpretation ABG results: 10/26/24 10/26/24 10/26/24 16:10 18:20 21:28 ABG pH 7.29 L 7.27 L ABG pCO2 63 H 71 H* ABG pO2 77 L 86 ABG HCO3 31 H 33 H ABG O2 Saturation 95 96 ABG Base Excess 2 4 H VBG pH 7.40 VBG pCO2 47 VBG pO2 38 VBG Base Excess 4 H 10/27/24 10/27/24 10/27/24 03:37 06:41 12:30 ABG pH 7.21 L 7.22 L 7.34 L D ABG pCO2 88 H* D 87 H* 64 H D ABG pO2 73 L 74 L 45 L* D ABG HCO3 35 H 35 H 34 H ABG O2 Saturation 93 92 85 L ABG Base Excess 4 H 4 H 6 H VBG pH VBG pCO2 VBG pO2 VBG Base Excess Quality Measures Quality Measures none Medications Home Medications and Allergies Home Medications ?Medication ?Instructions ?Recorded ?Confirmed ?Type carvedilol 6.25 mg tablet 6.25 mg PO BID 02/15/24 10/27/24 History gemfibrozil 600 mg tablet 600 mg PO BID 02/15/24 10/27/24 History loratadine 10 mg tablet 10 mg PO QDAY 02/15/24 10/27/24 History Allergies Allergy/AdvReac Type Severity Reaction Status Date / Time No Known Allergies Allergy Unverified 02/16/24 08:13 Visit Medications Acetaminophen (Acetaminophen 325 Mg Tablet) 650 mg PO Q6H PRN PRN Reason: Pain 1-3 and/or Fever >101.5 Stop: 11/25/24 18:12 Last Admin: 10/27/24 00:05 Dose: 650 mg Enoxaparin Sodium (Enoxaparin Sod Inj 60 Mg/0.6 Ml Syringe) 60 mg SC QDAY [facility] Stop: 11/09/24 18:59 Last Admin: 10/27/24 09:28 Dose: 60 mg Levofloxacin/Dextrose (Levaquin Ivpb) 750 mg in 150 mls @ 100 mls/hr IV QDAY@1400 [facility] Stop: 11/02/24 18:59 Last Infusion: 10/26/24 20:54 Dose: Infused Dexmedetomidine/Sodium Chloride (Precedex Ivpb) 200 mcg in 50 mls @ 7.312 mls/hr IV .Q6H51M PRN; Protocol PRN Reason: Per PROTOCOL Stop: 11/26/24 09:04 Last Admin: 10/27/24 12:08 Dose: 0.6 mcg/kg/hr, 21.936 mls/hr Ondansetron HCl (Ondansetron Inj 2 Mg/Ml Inj 2 Ml) 4 mg IV Q6H PRN; Protocol PRN Reason: NAUSEA OR VOMITING Stop: 11/25/24 18:12 Last Admin: 10/26/24 19:10 Dose: 4 mg Oseltamivir Phosphate (Oseltamivir 75 Mg Capsule) 75 mg PO BID JEANNE Stop: 10/31/24 09:01 Last Admin: 10/27/24 09:28 Dose: 75 mg Pantoprazole Sodium (Pantoprazole 40 Mg Tablet) 40 mg PO QDAY JEANNE Stop: 11/26/24 08:59 Last Admin: 10/27/24 09:28 Dose: 40 mg Sodium Chloride (Sodium Chloride Rt Katarina 0.9% 3 Ml Nebu) 3 ml INH PRN PRN PRN Reason: SOLN Stop: 11/25/24 16:05 Last Admin: 10/26/24 16:45 Dose: 3 ml Discontinued Medications Acetaminophen (Acetaminophen 500 Mg Tablet) 1,000 mg PO X1 ONE Stop: 10/26/24 15:43 Last Admin: 10/26/24 18:12 Dose: Not Given Acetaminophen (Acetaminophen 325 Mg Tablet) 650 mg PO Q6H PRN PRN Reason: Fever >101.5 Stop: 11/25/24 18:12 Albuterol (Albuterol Rt 2.5 Mg/0.5 Ml Nebu) 10 mg HHN X1 ONE Stop: 10/26/24 16:07 Last Admin: 10/26/24 16:45 Dose: 10 mg Furosemide (Furosemide Inj 10 Mg/Ml 4ml Vial) 40 mg IVP X1 ONE Stop: 10/26/24 18:40 Last Admin: 10/26/24 19:00 Dose: 40 mg Ceftriaxone Sodium/Dextrose (Rocephin/D5w 1gm Iv Premix) 50 mls @ 100 mls/hr IV X1 ONE Stop: 10/26/24 16:12 Last Infusion: 10/26/24 18:09 Dose: Infused Sodium Chloride (Ns) 2,000 mls @ 999 mls/hr IV .Q2H1M ONE Stop: 10/26/24 17:44 Last Admin: 10/26/24 17:17 Dose: Not Given Acetaminophen (Ofirmev Inj) 1,000 mg in 100 mls @ 250 mls/hr IV X1 ONE Stop: 10/26/24 17:55 Last Infusion: 10/26/24 19:13 Dose: Infused Sodium Chloride (Ns) 2,000 mls @ 150 mls/hr IV .[id number] ONE Stop: 10/27/24 07:02 Last Admin: 10/26/24 18:12 Dose: Not Given Oseltamivir Phosphate (Oseltamivir 6 Mg/Ml) 75 mg PO X1 ONE Stop: 10/26/24 16:36 Last Admin: 10/26/24 18:08 Dose: 75 mg Assessment & Plan Plan 44 years old male with past medical history of obesity, hypertension, type 2 diabetes, schizophrenia, obstructive sleep apnea on 2 L oxygen/CPAP and hx of substance/alcohol abuse from alcohol rehab facility initially admitted to the floor for acute hypoxic hypercapnic respiratory failure and sepsis in setting of Influenza after he was started on Bi-pap along with Levofloxacin and Oseltamavir. Patient was upgraded to ICU overnight for acute encephalopathy and worsening respiratory failure as patient was becoming agitated from BiPAP and taking it off frequently. Upon ICU transfer patient was on BiPAP but ABG showed pH of 7.21, pCO2 of 88, HCO3 32, BiPAP settings were adjusted and patient was started on Precedex for agitation. CARDIOLOGY CLINICAL CONSULTANT #Acute encephalopathy 2/2 Hypercapnia/hypoxia-----Resolved. CVS #HFpEF Last echo on 09/30 showed normal RV/LV size and function with EF of 65% Patient's physical exam noted for bibasilar crackles and 2+ pitting edema on BLE. Patient was given Lasix in ED, will hold diuresis in the meantime as patient was septic on presentation and was not giving any fluid. Cardiac diet Limit fluid to 1800cc daily Strict intake and output. Pulm #AHHRF 2/2 influenza B pneumonia, BHAVESH/OHS #Acute respiratory acidosis w metabolic alkalosis- non compensated. Patient's bicarb noted to be 32 with PCO2 of 87. Continue patient on Precedex as needed when on Bi-pap Continue BID Oseltamavir Continue Levofloxacin F/U Bcx, sputum Cx and MRSA screen. GI No active issues. Renal Metabolic alkalosis in setting of chronic CO2 retention. Adjust ventilator settings, IPAP increased to 22 Heme #Leukocytosis In setting of PNA ID #Sepsis 2/2 PNA #Leukocytosis Flu positive. F/U Bcx/Sputum Cx Continue Levofloxacin Endo No acute issues, goal to maintain glycemia between 140-180 DVT prophylaxis: Enoxaparin GI prophylaxis: Pantoprazole Diet: Cardiac diet w fluid restriction Harden: - Lines: PIV CODE STATUS: Full code Reason for hospitalization/disposition: AHHRF, Sepsis PNA Patient's plan of care discussed with attending Dr. Madelin Perez, PGY-3 Attending Provider Attestation/Addendum Patient seen and examined with above resident, Louisa Perez MD. I agree with the findings, assessment, and plan of care as documented except for any differences below. Patient with influenza with worsening respiratory status requiring BiPAP support for acute hypercapnic respiratory failure. We did adjust BiPAP settings with significant improvement in minute ventilation and follow-up pCO2 with significant improvement to 60s. Will continue to monitor closely in the intensive care unit for potential need for escalation to intubation/mechanical ventilation. Follow-up gas remains reassuring that patient will likely continue to improve. Empiric coverage with Levaquin being used for superimposed bacterial infection. Patient likely with component of obstructive sleep apnea/obesity hypoventilation limiting his reserve to respond to acute infection. Patient may take breaks later on today on high flow/high humidity nasal cannula which was trialed on the floor though did not help adequately for ventilation. Plan for overnight use of noninvasive positive pressure ventilation and reassess tomorrow for resumption of diet and potential transition back to medicine phelps. Total critical care time: I personally spent 35 minutes for review of physiologic parameters, directing plan of care throughout the day, and counseling patient at bedside. This is exclusive of time spent teaching housestaff or performing separate billable procedures. Patient continues to require critical care services for acute on chronic hypercapnic respiratory failure and metabolic acidosis in setting of influenza B pneumonia. Patient remains at risk for further morbidity and mortality warranting ongoing monitoring and care only available in the intensive care unit.
[2024-10-27] MEDS: LEVOFLOXACIN/D5W 750MG IVPB 750 MG/150 ML BAG 100 MG IV (15:01)
--- NOTE | 2024-10-27 18:45 | PC.NURSE ---
Pt is refusing a second IV insertion at this time. Per the ICU policy 2 IVs are normally required. MD is aware of pt refusing another IV at this time.
[2024-10-28] VITALS (24 sets, daily range): BP systolic 102–163; BP diastolic 64–101; PULSE 63–92; RESP 13–39; TEMP 36.2–36.8; O2SAT 91–100; BMI 52.4
[2024-10-28] MEDS: DEXMEDETOMIDINE 200 MCG IVPB 200 MCG/50 ML BOTTLE 21.936 MCG IV ×3 (00:38→05:56)
[2024-10-28 06:20] LABS: Basophils % (Auto) 0 % (0-2.5); Eosinophils % (Auto) 0 % (0-10); Hematocrit 41.2 % (41.0-53.0); Hemoglobin 12.8 g/dL (13.5-16.0); Immature Granulocytes % (Auto) 1 % (0-0); Immature Granulocytes Auto 0.06 Thou/mm3 (0.00-0.00); Lymphocytes # (Auto) 1.2 Thou/mm3 (1.0-4.8); Lymphocytes % (Auto) 13 % (10-50); Mean Corpuscular HGB Conc 31.1 g/dl (31.0-37.0); Mean Corpuscular Hemoglobin 28.3 pg (25.0-35.0); Mean Corpuscular Volume 91 fL (80-100); Monocytes # (Auto) 0.5 Thou/mm3 (0.0-0.8); Monocytes % (Auto) 5 % (0-12); Neutrophils # (Auto) 7.6 Thou/mm3 (1.8-7.7); Neutrophils % (Auto) 81 % (37-80); Nucleated Red Blood Cell % 0 /100 WBC (0); Platelet Count 196 Thou/mm3 (140-440); RDW Standard Deviation 51.8 fL (35.1-43.9); Red Blood Count 4.52 Miln/mm3 (4.50-5.90); White Blood Count 9.4 Thou/mm3 (3.8-10.6)
[2024-10-28 06:31] LABS: Anion Gap 5 (7-16); BUN/Creatinine Ratio 21 Ratio (12-20); Blood Urea Nitrogen 21 mg/dL (9-23); Calcium 9.3 mg/dL (8.3-10.6); Chloride 96 mMol/L (98-107); Estimated Creatinine Clearance 133.8 mL/min (>60); Glucose 121 mg/dL (74-106); Osmolality,Calculated 275 (275-295); Potassium 3.9 mMol/L (3.4-5.1); Sodium 136 mMol/L (136-145); eGFR > 60 See Note
[2024-10-28] MEDS: PANTOPRAZOLE 40 MG TABLET PO (09:58)
[2024-10-28] MEDS: OSELTAMIVIR 75 MG CAPSULE PO ×2 (09:58→21:15)
[2024-10-28] MEDS: ENOXAPARIN SOD INJ 60 MG/0.6 ML SYRINGE SC (09:58)
[2024-10-28] MEDS: LEVOFLOXACIN/D5W 750MG IVPB 750 MG/150 ML BAG 100 MG IV (15:45)
[2024-10-28] MEDS: ACETAMINOPHEN 325 MG TABLET 650 MG PO (15:45)
--- NOTE | 2024-10-28 16:14 | PD.RESEVENT ---
Documentation for date of: 10/28/24 Event Note Event Note: Close team received an ICU downgrade, 44-year-old male, Zay Reyes, with PMHx of obesity, HTN, T2DM, schizophrenia, BHAVESH, and polysubstance use, who presented with acute hypoxic respiratory failure in setting of sepsis due to influenza. He was started on LEVOFLOXACIN and oseltamivir and continued on BiPAP, did not require intubation. Patient was stable to downgrade to floor team and will continue on BiPAP every night. The hospitalist team will assume care of patient tomorrow 10/29/2020 4 in the AM. Patient case was discussed with attending, Dr. Arias Mahmood MD and senior resident Dr. Lobato. Brianne Preciado DO PGYI
--- NOTE | 2024-10-28 18:24 | PD.RESPRO ---
Documentation for date of: 10/28/24 Subjective Subjective Interval history: 44 years old male with past medical history of obesity, hypertension, type 2 diabetes, schizophrenia, obstructive sleep apnea on 2 L oxygen/CPAP and hx of substance/alcohol abuse from alcohol rehab facility initially admitted to the floor for acute hypoxic hypercapnic respiratory failure and sepsis in setting of Influenza after he was started on Bi-pap along with Levofloxacin and Oseltamavir. Patient was upgraded to ICU overnight for acute encephalopathy and worsening respiratory failure as patient was becoming agitated from BiPAP and taking it off frequently. Upon ICU transfer patient was on BiPAP but ABG showed pH of 7.21, pCO2 of 88, HCO3 32, BiPAP settings were adjusted and patient was started on Precedex for agitation. In a.m. patient was evaluated and was found to be alert and oriented to name, , place, and was tolerating BiPAP well. Concern for possible intubation was initially present but as patient's condition/mentation improved decision to continue patient on BiPAP was made. Will continue to monitor patient's condition, adjust BiPAP settings and consider possible need for intubation if patient's condition deteriorates. 10/28/2024: Patient seen and examined at bedside. Patient alert and oriented, feels greatly improved from yesterday, noted continued shortness of breath. On exam patient had notable rhonchi in all lung bradley. Patient was able to be brought from BiPAP down to high flow nasal cannula, 20L/min and 50% FiO2. Patient weaned off Precedex. Patient deemed stable for downgrade. Continue Levaquin pending sputum culture results. Exam Vital Signs Temp Pulse Resp BP Pulse Ox O2 Del Method O2 Flow Rate 97.2 F 81 20 129/83 97 Oxy Mask 16 10/28/24 16:00 10/28/24 16:00 10/28/24 16:00 10/28/24 16:00 10/28/24 16:00 10/28/24 16:00 10/28/24 16:00 FiO2 30 10/28/24 12:00 Narrative Exam General: Alert and responsive, Morbidly obese. HEENT: Normocephalic, atraumatic, mucous membranes moist. Heart: Regular rate and rhythm, no murmurs. Lungs: Rhonchi in all lung bradley. Overall decreased breath sounds due to body habitus. Abdomen: Soft, non distended, non tender, positive bowel sounds. ?No guarding or rebound tenderness. Neurologic: AAOx3, able to follow commands and able to move all 4 extremities with no focal neurological deficit. Extremities: Bilateral lower extremity pitting pedal edema was noted with erythema extending up to mid calf. Skin: No rash or ecchymoses. Objective Labs 10/30/24 05:09 10/30/24 05:09 Labs: Laboratory Results - last 24 hr 10/28/24 04:55 WBC 9.4 RBC 4.52 Hgb 12.8 L Hct 41.2 MCV 91 MCH 28.3 MCHC 31.1 RDW Std Deviation 51.8 H Plt Count 196 Neut % (Auto) 81 H Lymph % (Auto) 13 Mccormick % (Auto) 5 Eos % (Auto) 0 Baso % (Auto) 0 Neut # (Auto) 7.6 Lymph # (Auto) 1.2 Mccormick # (Auto) 0.5 Eos # (Auto) 0.0 Baso # (Auto) 0.0 Immature Gran # (Auto) 0.06 H Absolute Nucleated RBC 0.00 Immature Gran % 1 H Nucleated RBC % 0 Sodium 136 Potassium 3.9 Chloride 96 L Carbon Dioxide 35.0 H Anion Gap 5 L BUN 21 Creatinine 1.0 Estim Creat Clear Calc 133.8 eGFR > 60 BUN/Creatinine Ratio 21 H Glucose 121 H D Calculated Osmolality 275 Calcium 9.3 ABG Interpretation ABG results: 10/26/24 10/26/24 10/26/24 16:10 18:20 21:28 ABG pH 7.29 L 7.27 L ABG pCO2 63 H 71 H* ABG pO2 77 L 86 ABG HCO3 31 H 33 H ABG O2 Saturation 95 96 ABG Base Excess 2 4 H VBG pH 7.40 VBG pCO2 47 VBG pO2 38 VBG Base Excess 4 H 10/27/24 10/27/24 10/27/24 03:37 05:42 06:41 ABG pH 7.21 L Cancelled 7.22 L ABG pCO2 88 H* D Cancelled 87 H* ABG pO2 73 L Cancelled 74 L ABG HCO3 35 H Cancelled 35 H ABG O2 Saturation 93 Cancelled 92 ABG Base Excess 4 H Cancelled 4 H VBG pH VBG pCO2 VBG pO2 VBG Base Excess 10/27/24 12:30 ABG pH 7.34 L D ABG pCO2 64 H D ABG pO2 45 L* D ABG HCO3 34 H ABG O2 Saturation 85 L ABG Base Excess 6 H VBG pH VBG pCO2 VBG pO2 VBG Base Excess Quality Measures Quality Measures VTE prophylaxis Assessment & Plan Assessment Current Active Medications: Generic Name Dose Route Start Last Admin Trade Name Freq PRN Reason Stop Dose Admin Acetaminophen 650 mg 10/26/24 23:47 10/28/24 15:45 Acetaminophen 325 Mg Tablet PO 11/25/24 18:12 650 mg Q6H PRN Administration Pain 1-3 and/or Fever >101.5 Enoxaparin Sodium 60 mg 10/26/24 19:00 10/28/24 09:58 Enoxaparin Sod Inj 60 Mg/0.6 Ml Syringe SC 11/09/24 18:59 60 mg QDAY JEANNE Administration Levofloxacin/Dextrose 750 mg in 150 mls @ 100 mls/hr 10/26/24 19:00 10/28/24 15:45 Levaquin Ivpb IV 11/02/24 18:59 100 mls/hr QDAY@1400 JEANNE Administration Ondansetron HCl 4 mg 10/26/24 18:13 10/26/24 19:10 Ondansetron Inj 2 Mg/Ml Inj 2 Ml IV 11/25/24 18:12 4 mg Q6H PRN Administration NAUSEA OR VOMITING Protocol Oseltamivir Phosphate 75 mg 10/27/24 09:00 10/28/24 09:58 Oseltamivir 75 Mg Capsule PO 10/31/24 09:01 75 mg BID JEANNE Administration Pantoprazole Sodium 40 mg 10/27/24 09:00 10/28/24 09:58 Pantoprazole 40 Mg Tablet PO 11/26/24 08:59 40 mg QDAY JEANNE Administration Sodium Chloride 3 ml 10/26/24 16:06 10/26/24 16:45 Sodium Chloride Rt Katarina 0.9% 3 Ml Nebu INH 11/25/24 16:05 3 ml PRN PRN Administration SOLN Plan 44 years old male with past medical history of obesity, hypertension, type 2 diabetes, schizophrenia, obstructive sleep apnea on 2 L oxygen/CPAP and hx of substance/alcohol abuse from alcohol rehab facility initially admitted to the floor for acute hypoxic hypercapnic respiratory failure and sepsis in setting of Influenza after he was started on Bi-pap along with Levofloxacin and Oseltamavir, Patient was upgraded to ICU overnight for acute encephalopathy and worsening respiratory failure as patient was becoming agitated from BiPAP and taking it off frequently. 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 CVS #HFpEF Last echo on 09/30 showed normal RV/LV size and function with EF of 65% Patient's physical exam noted for bibasilar crackles and 2+ pitting edema on BLE. Patient was given Lasix in ED, will hold diuresis in the meantime as patient was septic on presentation and was not giving any fluid. -Cardiac diet -Limit fluid to 1800cc daily -Strict intake and output. -Consider diuretics, held due to metabolic alkalosis Pulm #AHHRF 2/2 influenza B pneumonia, BHAVESH/OHS #Acute respiratory acidosis w metabolic alkalosis- non compensated. Patient's bicarb noted to be 32 with PCO2 of 87. Patient on Precedex as needed when on Bi-pap Precedex discontinued, patient transition to high flow nasal cannula -BID Oseltamavir -Continue Levofloxacin pending sputum culture results -F/U Bcx, sputum Cx and MRSA screen. -Maintain BiPAP while sleeping GI No active issues. Renal Metabolic alkalosis in setting of chronic CO2 retention. Adjust ventilator settings, IPAP increased to 22 -Monitor Heme #Leukocytosis-resolved In setting of PNA ID #Sepsis 2/2 PNA #Leukocytosis Flu positive. -F/U Bcx/Sputum Cx -Continue Levofloxacin pending sputum culture results -Continue Tamiflu Endo No acute issues, goal to maintain glycemia between 140-180 DVT prophylaxis: Enoxaparin GI prophylaxis: Pantoprazole Diet: Cardiac diet w fluid restriction Harden: - Lines: PIV CODE STATUS: Full code Reason for hospitalization/disposition: AHHRF, Sepsis PNA Plan of care discussed with attending Dr. Yusuf. Vishnu Hou MD PGY-1 Attending Provider Attestation/Addendum Patient seen and examined with above resident, Vishnu Hou MD. Patient responded well to BiPAP therapy and adjustments made. Precedex used to maintain compliance overnight. Weaned off successfully this morning. Patient able to transition back to high flow nasal cannula and comfortably able to tolerate p.o. diet now. Patient remains on Tamiflu twice daily and will continue on empiric Levaquin for potential superimposed bacterial pneumonia that I suspect the primary cause is influenza B. Patient with significant component of obstructive sleep apnea/OHS-admits to wearing PAP therapy at home as well. Patient should continue on nocturnal BiPAP and as he improves can be transition to his home settings if they are available. Wean off oxygen during the day as tolerated with mobilization and incentive spirometry. Patient with also history of heart failure with preserved ejection fraction monitor closely for need for diuretics and avoid precipitating contraction alkalosis which will lead to additional CO2 retention. Given his encephalopathy is now resolved, patient will be transferred to medicine [facility] for ongoing management prior to discharge. Total critical care time: I personally spent 35 minutes for review of physiologic parameters, directing plan of care throughout the day, coordination of care with medicine team for transition to [facility], and counseling patient at bedside. This is exclusive of time spent teaching of staff or performing any separate billable procedures.
[2024-10-29] VITALS (13 sets, daily range): BP systolic 115–147; BP diastolic 64–87; PULSE 68–94; RESP 15–29; TEMP 36.1–37.2; O2SAT 88–98; BMI 52.4
[2024-10-29] MEDS: ACETAMINOPHEN 325 MG TABLET 650 MG PO (02:30)
[2024-10-29 05:59] LABS: Basophils % (Auto) 1 % (0-2.5); Eosinophils # (Auto) 0.1 Thou/mm3 (0.0-0.5); Eosinophils % (Auto) 2 % (0-10); Hematocrit 41.1 % (41.0-53.0); Hemoglobin 12.8 g/dL (13.5-16.0); Immature Granulocytes % (Auto) 1 % (0-0); Immature Granulocytes Auto 0.04 Thou/mm3 (0.00-0.00); Lymphocytes # (Auto) 0.8 Thou/mm3 (1.0-4.8); Lymphocytes % (Auto) 14 % (10-50); Mean Corpuscular HGB Conc 31.1 g/dl (31.0-37.0); Mean Corpuscular Hemoglobin 27.9 pg (25.0-35.0); Mean Corpuscular Volume 90 fL (80-100); Monocytes # (Auto) 0.5 Thou/mm3 (0.0-0.8); Monocytes % (Auto) 9 % (0-12); Neutrophils # (Auto) 4.5 Thou/mm3 (1.8-7.7); Neutrophils % (Auto) 75 % (37-80); Nucleated Red Blood Cell % 0 /100 WBC (0); Platelet Count 203 Thou/mm3 (140-440); RDW Standard Deviation 50.4 fL (35.1-43.9); Red Blood Count 4.59 Miln/mm3 (4.50-5.90); White Blood Count 6.1 Thou/mm3 (3.8-10.6)
[2024-10-29 06:29] LABS: Anion Gap 7 (7-16); BUN/Creatinine Ratio 20 Ratio (12-20); Blood Urea Nitrogen 18 mg/dL (9-23); Calcium 9.1 mg/dL (8.3-10.6); Carbon Dioxide 33.4 mMol/L (20.0-31.0); Chloride 99 mMol/L (98-107); Creatinine (Component) 0.9 mg/dL (0.6-1.3); Estimated Creatinine Clearance 148.7 mL/min (>60); Glucose 115 mg/dL (74-106); Osmolality,Calculated 280 (275-295); Potassium 3.8 mMol/L (3.4-5.1); Sodium 139 mMol/L (136-145); eGFR > 60 See Note
[2024-10-29] MEDS: OSELTAMIVIR 75 MG CAPSULE PO ×2 (08:34→22:11)
[2024-10-29] MEDS: PANTOPRAZOLE 40 MG TABLET PO (08:34)
[2024-10-29] MEDS: ENOXAPARIN SOD INJ 60 MG/0.6 ML SYRINGE SC ×2 (08:34→22:11)
[2024-10-29 08:49] LABS: Collection Type, Urine Clean Catch
[2024-10-29 09:29] LABS: Amorphous Crystals,Urine Present (Absent); Bilirubin,Urine Negative (Negative); Blood,Urine Negative (Negative); Color,Urine Yellow (Lt Yel-Yel); Culture Indicated,Urine Not Indicated; Glucose, Urine Negative (Negative); Ketones,Urine 1+ (Negative); Leukocyte Esterase,Urine Negative (Negative); Nitrite,Urine Negative (Negative); Protein,Urine Trace (Neg - Trace); RBC,Urine 1 /hpf (0-3); Specific Gravity,Urine 1.025 (1.001-1.035); Squamous Epithelial Cell,Urine < 1 /hpf (0-5); WBC,Urine < 1 /hpf (0-5)
[2024-10-29 09:31] LABS: Clarity,Urine Hazy (Clear/Hazy)
[2024-10-29 09:40] LABS: Amphetamine/Methamp Scrn,U Negative (Negative); Barbiturate Screen,Urine Negative (Negative); Benzodiazepines Screen,Urine Negative (Negative); Benzoylecgonine Screen, Ur Negative (Negative); Fentanyl Screen,Urine Negative (Negative); Opiate Screen,Urine Positive (Negative); THC Screen,Urine Negative (Negative)
--- NOTE | 2024-10-29 09:44 | PD.ADDPROG ---
Addendum Progress Note Addendum Date of report being addended: 10/29/24 Narrative: I reviewed labs, imaging, EKG, home medications and prior available records. Face to face evaluation was performed by me. I have personally examined the patient and discussed assessment and plan with the IM team. I reviewed the resident note and agree with the plan with exceptions as below. Acute on chronic hypoxic and hypercapnic respiratory failure influenza B respiratory tract infection Obesity hypoventilation syndrome Obstructive sleep apnea Morbid obesity Hyperlipidemia Acute exacerbation of HFpEF He is on 6 L nasal cannula Nightly BiPAP Continue IV diuresis. Monitor I's and O's. Fluid restriction PT evaluation Oseltamivir for the influenza B Outpatient weight management
--- NOTE | 2024-10-29 10:29 | PC.SS ---
Patient is alert/oriented. He states he resides at [facility] drug program. Patient has been in facility since and will be able to d/c rehab on the Nov. Patient d/c address: [facility] [facility] [address]. Patient is independent with ADL's. He uses 02 and a trilogy at night--[employer]. Patient nursing documentation indicates that patient is refusing his i.v. insertion. Patient last admit was in September of this year. Patient follows at the [facility] with Dr. Hernandez. Alt medical decision maker is his mother, Lakisha. transportation: family d/c plan: [facility] alt medical decision maker: mother,
[2024-10-29] MEDS: FUROSEMIDE INJ 10 MG/ML 4ML VIAL 40 MG IVP (11:13)
--- NOTE | 2024-10-29 14:10 | ESPR_ITS ---
<Statement entered by Stephanie Woodward DO - 10/29/24 17:22> Senior attestation: Patient was examined and case was reviewed with team including attending physician. Note reviewed, I agree with most of its contents and agree with the patient's care. Pending physical therapy eval, will start diuresis with IV lasix today, will continue to wean down oxygen as tolerated. Stephanie Woodward DO PGY-3 Documentation for date of: 10/29/24 Subjective Subjective Interval history: Patient was seen and examined at bedside. No acute events overnight. Patient states that he is compliant with BiPAP. Feeling better today with no headache, fever, chills, no bodyaches. Continue with oseltamavir 75 BID until 10/31. Continue levofloxacin 750 mg until 11/02. At bedside patient was saturating at 95% via 6 L nasal cannula. Will continue to wean off oxygen. Patient states that he uses oxygen at home but is unaware of how much. Complaining of tongue irritation-give Orajel as needed. Patient has history of HFpEF start on IV Lasix 40 mg daily and monitor ALEKSANDRA's. Continue BiPAP at bedtime. Review of systems otherwise negative except what is mentioned above. Exam Vital Signs Temp Pulse Resp BP Pulse Ox O2 Del Method O2 Flow Rate 98.7 F 76 29 H 147/64 H 97 Room Air 6 10/29/24 11:31 10/29/24 12:00 10/29/24 11:31 10/29/24 11:31 10/29/24 11:31 10/29/24 11:31 10/29/24 07:48 FiO2 40 10/29/24 07:08 Narrative Exam General: Alert and responsive, Morbidly obese. HEENT: Normocephalic, atraumatic, mucous membranes moist, conjunctival injection Heart: Regular rate and rhythm, no murmurs. Lungs: Rhonchi in all lung bradley. Overall decreased breath sounds due to body habitus. Abdomen: Soft, obese, non tender, positive bowel sounds. ?No guarding or rebound tenderness. Neurologic: AAOx3, able to follow commands and able to move all 4 extremities with no focal neurological deficit. Extremities: Bilateral lower extremity pitting pedal edema. Skin: No rash or ecchymoses. Objective Labs 10/30/24 05:09 10/30/24 05:09 Labs: Laboratory Results - last 24 hr 10/29/24 10/29/24 05:20 07:35 WBC 6.1 RBC 4.59 Hgb 12.8 L Hct 41.1 MCV 90 MCH 27.9 MCHC 31.1 RDW Std Deviation 50.4 H Plt Count 203 Neut % (Auto) 75 Lymph % (Auto) 14 Perry % (Auto) 9 Eos % (Auto) 2 Baso % (Auto) 1 Neut # (Auto) 4.5 Lymph # (Auto) 0.8 L Perry # (Auto) 0.5 Eos # (Auto) 0.1 Baso # (Auto) 0.0 Immature Gran # (Auto) 0.04 H Absolute Nucleated RBC 0.00 Immature Gran % 1 H Nucleated RBC % 0 Sodium 139 Potassium 3.8 Chloride 99 Carbon Dioxide 33.4 H Anion Gap 7 BUN 18 Creatinine 0.9 Estim Creat Clear Calc 148.7 eGFR > 60 BUN/Creatinine Ratio 20 Glucose 115 H Calculated Osmolality 280 Calcium 9.1 Ur Collection Type Clean Catch Urine Color Yellow Urine Clarity Hazy Urine pH 7.0 Ur Specific Dorsey 1.025 Urine Protein Trace Urine Glucose (UA) Negative Urine Ketones 1+ A Urine Blood Negative Urine Nitrite Negative Urine Bilirubin Negative Urine Urobilinogen (Auto) 2.0 Ur Leukocyte Esterase Negative Urine RBC 1 Urine WBC < 1 Ur Squamous Epith Cells < 1 Amorphous Crystals Present A Urine Bacteria None Ur Culture Indicated? Not Indicated Urine Opiates Screen Positive A Urine Fentanyl Screen Negative Ur Barbiturates Screen Negative U Amphetamin/Meth Scrn Negative U Benzodiazepines Scrn Negative U Cocaine Metab Screen Negative U Marijuana (THC) Screen Negative ABG Interpretation ABG results: 10/26/24 10/26/24 10/26/24 16:10 18:20 21:28 ABG pH 7.29 L 7.27 L ABG pCO2 63 H 71 H* ABG pO2 77 L 86 ABG HCO3 31 H 33 H ABG O2 Saturation 95 96 ABG Base Excess 2 4 H VBG pH 7.40 VBG pCO2 47 VBG pO2 38 VBG Base Excess 4 H 10/27/24 10/27/24 10/27/24 03:37 05:42 06:41 ABG pH 7.21 L Cancelled 7.22 L ABG pCO2 88 H* D Cancelled 87 H* ABG pO2 73 L Cancelled 74 L ABG HCO3 35 H Cancelled 35 H ABG O2 Saturation 93 Cancelled 92 ABG Base Excess 4 H Cancelled 4 H VBG pH VBG pCO2 VBG pO2 VBG Base Excess 10/27/24 12:30 ABG pH 7.34 L D ABG pCO2 64 H D ABG pO2 45 L* D ABG HCO3 34 H ABG O2 Saturation 85 L ABG Base Excess 6 H VBG pH VBG pCO2 VBG pO2 VBG Base Excess Quality Measures Quality Measures VTE prophylaxis Assessment & Plan Assessment Current Active Medications: Generic Name Dose Route Start Last Admin Trade Name Freq PRN Reason Stop Dose Admin Acetaminophen 650 mg 10/29/24 09:13 Acetaminophen 325 Mg Tablet PO 11/25/24 18:12 Q6H PRN Pain 1-3 and/or Fever >100.3 Benzocaine 0 gm 10/29/24 12:22 Benzocaine Gel 10% 5.3 Gm Tube TOP 11/28/24 12:21 QID PRN PAIN Enoxaparin Sodium 60 mg 10/26/24 19:00 10/29/24 08:34 Enoxaparin Sod Inj 60 Mg/0.6 Ml Syringe SC 11/09/24 18:59 60 mg QDAY JEANNE Administration Furosemide 40 mg 10/29/24 10:00 10/29/24 11:13 Furosemide Inj 10 Mg/Ml 4ml Vial IVP 11/28/24 09:59 40 mg QDAY JEANNE Administration Levofloxacin/Dextrose 750 mg in 150 mls @ 100 mls/hr 10/26/24 19:00 10/28/24 15:45 Levaquin Ivpb IV 11/02/24 18:59 100 mls/hr QDAY@1400 JEANNE Administration Ondansetron HCl 4 mg 10/26/24 18:13 10/26/24 19:10 Ondansetron Inj 2 Mg/Ml Inj 2 Ml IV 11/25/24 18:12 4 mg Q6H PRN Administration NAUSEA OR VOMITING Protocol Oseltamivir Phosphate 75 mg 10/27/24 09:00 10/29/24 08:34 Oseltamivir 75 Mg Capsule PO 10/31/24 09:01 75 mg BID JEANNE Administration Pantoprazole Sodium 40 mg 10/27/24 09:00 10/29/24 08:34 Pantoprazole 40 Mg Tablet PO 11/26/24 08:59 40 mg QDAY JEANNE Administration Sodium Chloride 3 ml 10/26/24 16:06 10/26/24 16:45 Sodium Chloride Rt Katarina 0.9% 3 Ml Nebu INH 11/25/24 16:05 3 ml PRN PRN Administration SOLN Plan 44 years old male with past medical history of obesity, hypertension, type 2 diabetes, schizophrenia, obstructive sleep apnea on 2 L oxygen/CPAP and hx of substance/alcohol abuse from alcohol rehab facility initially admitted to the floor for acute hypoxic hypercapnic respiratory failure and sepsis in setting of Influenza after he was started on Bi-pap along with Levofloxacin and Oseltamavir, Patient was upgraded to ICU overnight for worsening respiratory failure as patient was becoming agitated from BiPAP and taking it off frequently. #Acute on chronic hypoxic respiratory failure 12/09 #sepsis (ruled out) 12/09 b/L PNA 12/09 # influenza B vs #BHAVESH #OHS Patient uses CPAP machine at home and home oxygen, unaware of amount. Met SIRS 4/4 with source of infection being pneumonia. Most likely due to influenza. CXR confirmed bibasliar PNA. -Continue BiPAP at bedtime -Continue oxygen as needed will attempt to wean -blood cultures were negative -Continue with oseltamavir 75 BID until 10/31. -Continue levofloxacin 750 mg until 11/02. #Hx HFpEF with acute decompensation HF Last echo on 09/30 showed normal RV/LV size and function with EF of 65%. Patient's physical exam noted for bibasilar crackles and 2+ pitting edema on BLE. -start IV Lasix 40 mg daily -monitor INOs -1500mL fluid restriction #Morbidly obese BMI 52. A1c 6.1. -consider GLP-1 agonist at d/c DVT prophylaxis: Enoxaparin 60 mg BID GI prophylaxis: Pantoprazole Diet: Cardiac diet w fluid restriction Lines: PIV CODE STATUS: Full code Dispo: d/c pending oxygen wean Plan of care discussed with attending Dr. Mahmood and seniors Dr. Woodward/Dr. Lobato. Eli Ashton, PGY1 Mr Reynolds is a 44 years old male with past medical history of obesity, hypertension, type 2 diabetes, schizophrenia, obstructive sleep apnea on 2 L oxygen/CPAP and hx of substance/alcohol abuse from alcohol rehab facility initially admitted to the floor for acute hypoxic respiratory failure. Patient was in the ICU for risk of possible intubation, however condition improved on BIPAP. Patient was downgraded to medical floors on 10/29/2024, currently on 2- 3L oxygen via [place], saturating 92-96%. Ordered daily sales audit clerk consult for A1c 6.1%. alos pending PT evaluation for safe discharge, patient has home oxygen already. Patient examined and case discussed with the team including attending physician. Note reviewed, I agree with the care plan as documented. - Jhonatan Lobato MD, PGY 2 Attending Provider Attestation/Addendum I reviewed labs, imaging, EKG, home medications and prior available records. Face to face evaluation was performed by me. I have personally examined the patient and discussed assessment and plan with the IM team. I reviewed the resident note and agree with the plan with exceptions as below. Please see my separate addendum for the same date of service
[2024-10-29] MEDS: LEVOFLOXACIN/D5W 750MG IVPB 750 MG/150 ML BAG 100 MG IV (14:24)
[2024-10-29] MEDS: DiphenhydrAMINE 25 MG CAPSULE PO (22:11)
[2024-10-30] VITALS (11 sets, daily range): BP systolic 115–138; BP diastolic 70–92; PULSE 84–104; RESP 19–30; TEMP 35.8–36.5; O2SAT 92–100; BMI 51.4
[2024-10-30 05:54] LABS: Basophils % (Auto) 1 % (0-2.5); Eosinophils # (Auto) 0.2 Thou/mm3 (0.0-0.5); Eosinophils % (Auto) 3 % (0-10); Hematocrit 44.3 % (41.0-53.0); Immature Granulocytes % (Auto) 0 % (0-0); Immature Granulocytes Auto 0.02 Thou/mm3 (0.00-0.00); Lymphocytes # (Auto) 1.2 Thou/mm3 (1.0-4.8); Lymphocytes % (Auto) 22 % (10-50); Mean Corpuscular HGB Conc 31.6 g/dl (31.0-37.0); Mean Corpuscular Hemoglobin 27.7 pg (25.0-35.0); Mean Corpuscular Volume 88 fL (80-100); Monocytes # (Auto) 0.5 Thou/mm3 (0.0-0.8); Monocytes % (Auto) 9 % (0-12); Neutrophils # (Auto) 3.5 Thou/mm3 (1.8-7.7); Neutrophils % (Auto) 65 % (37-80); Nucleated Red Blood Cell % 0 /100 WBC (0); Platelet Count 239 Thou/mm3 (140-440); RDW Standard Deviation 49.2 fL (35.1-43.9); Red Blood Count 5.06 Miln/mm3 (4.50-5.90); White Blood Count 5.4 Thou/mm3 (3.8-10.6)
[2024-10-30 06:19] LABS: Alanine Aminotransferase 51 U/L (10-49); Albumin, Serum 4.7 gm/dL (3.5-5.0); Albumin/Globulin Ratio 1.5 (1.2-2.2); Alkaline Phosphatase 73 U/L (46-116); Anion Gap 8 (7-16); Aspartate Amino Transferase 32 U/L (0-34); BUN/Creatinine Ratio 22 Ratio (12-20); Bilirubin,Total 0.5 mg/dL (0.3-1.2); Blood Urea Nitrogen 20 mg/dL (9-23); Calcium 9.4 mg/dL (8.3-10.6); Calcium (Corrected) 9.4 mg/dL (8.5-10.1); Carbon Dioxide 33.6 mMol/L (20.0-31.0); Chloride 100 mMol/L (98-107); Creatinine (Component) 0.9 mg/dL (0.6-1.3); Estimated Creatinine Clearance 144.7 mL/min (>60); Globulin 3.2 gm/dL (2.3-3.5); Glucose 115 mg/dL (74-106); Osmolality,Calculated 286 (275-295); Potassium 3.5 mMol/L (3.4-5.1); Sodium 142 mMol/L (136-145); Total Protein 7.9 gm/dL (5.7-8.2); eGFR > 60 See Note
[2024-10-30] MEDS: FUROSEMIDE INJ 10 MG/ML 4ML VIAL 40 MG IVP (09:20)
[2024-10-30] MEDS: SENNA TABLET 1 TAB PO (09:20)
[2024-10-30] MEDS: PANTOPRAZOLE 40 MG TABLET PO (09:20)
[2024-10-30] MEDS: OSELTAMIVIR 75 MG CAPSULE PO (09:20)
[2024-10-30] MEDS: ENOXAPARIN SOD INJ 60 MG/0.6 ML SYRINGE SC (09:21)
[2024-10-30] MEDS: POTASSIUM CHLORIDE 20 mEq TABCR PO (09:21)
[2024-10-30] MEDS: POTASSIUM CHLORIDE 20 mEq TABCR 40 MEQ PO (09:21)
[2024-10-30] MEDS: LEVOFLOXACIN 250 MG TABLET 500 MG PO (10:29)
--- NOTE | 2024-10-30 13:08 | PC.NURSE ---
Family will bring home oxygen for the patient to go home on. Waiting to discharge until family arrive.
--- NOTE | 2024-10-30 13:25 | ESDS_ITS ---
<Statement entered by Jhonatan Lobato MD - 10/31/24 07:33> Patient was examined with the team including attending physician. Note reviewed, I agree with the discharge plan as documented. - Jhonatan Lobato M.D. PGY2 Planned Discharge Date 10/30/24 DS: Providers Provider Date of admission: 10/26/24 18:01 Primary care physician: Rod Hernandez PA-C Admitting Provider: Rudy Andrews MD Attending Provider on Admission: Lee Yusuf MD Consults: 10/29/24 13:11 Referral Registered Dietitian Routine Comment: a1c 6.1 , DM counseling pls 10/30/24 08:44 Referral Physical Therapy Urgent Comment: Physician Instructions: Instructions: PT for DC today please Attending Provider on DC: Eli Ashton MD Discharging Provider: Loy Munoz MD DS: Diagnosis Problem List Completed Was Problem List Reviewed/Reconciled?: Yes Hospital Course Hospital Course Hospital course: Reason for hospitalization: acute on chronic hypoxemic hypercapnic respiratory failure secondary to bilateral pneumonia Zay Reyes is 44 yr male with PMH of obesity/OHS, BHAVESH on 2L home O2 and CPAP, HTN, T2DM, schizophrenia and history of prior intubation for respiratory failure who presented to ED on 10/26/24 due to low oxygen saturation, fever, and drowsiness. He was admitted for acute on chronic hypoxic hypercapnic respiratory failure. Beside influenza B was positive. Chest x-ray showed bilateral moderate vascular congestion and superimposed bibasliar pneumonia. Patient was started on oseltamavir, Levaquin for bacterial pneumonia, and BiPAP. The next day, patient had worsening respiratory acidosis possibly due to tendency of taking off BiPAP continuously. There was concern for impending respiratory failure and need for possible intubation. Therefore transferred to ICU for monitoring. He however remained stable and did not require intubation. Patient continued using BiPAP at night with oxygen supplement via nasal cannula during the day. Was weaned down to 4 L oxygen saturating adequately. Patient's physical exam indicated volume overload status and started on IV Lasix 40 mg daily. Patient was in the net -2.6L fluid loss in 24 hrs. Patient is now in stable condition and ready for discharge. Recommendations were given as below. Discharge Recommendations: Follow-up with PCP in 1 to 2 weeks. Follow-up with crane hooker in 1 to 2 weeks. Follow-up with installation tech in 1 to 2 weeks. Continue using CPAP machine every night. Increased furosemide from 20 mg to 40 mg daily. Continue taking levofloxacin 750 mg daily for 3 more days. Continue taking Tamiflu 75 mg daily for 3 more days. Start taking Rybelsus 3 mg daily for weight loss. Continue all other home medications as noted above. Return to ED if symptoms worsen. Hospital Diagnoses: #Acute on chronic hypoxic hypercapnic respiratory failure #sepsis (ruled out) #b/L CAP #influenza B #BHAVESH #OHS #Hx HFpEF with acute decompensation #Morbidly obese The patient's management plan was discussed with my attending physician Dr. Munoz and senior Dr. Lobato. Eli Ashton MD, PGY-1 Time Spent with Patient Time attestation: Total time spent providing and/or coordinating discharge services: Time spent: Greater than 30 minutes Exam Vital Signs Temp Pulse Resp BP Pulse Ox O2 Del Method O2 Flow Rate 97.0 F 88 25 H 136/83 H 94 L Nasal Cannula 5 10/30/24 11:59 10/30/24 12:00 10/30/24 11:59 10/30/24 11:59 10/30/24 11:59 10/30/24 11:59 10/30/24 08:05 FiO2 40 10/30/24 03:48 Narrative Exam General: Alert and responsive, Morbidly obese. HEENT: Normocephalic, atraumatic, mucous membranes moist, conjunctival injection Heart: Regular rate and rhythm, no murmurs. Lungs: Rhonchi in all lung bradley. Overall decreased breath sounds due to body habitus. Abdomen: Soft, obese, non tender, positive bowel sounds. ?No guarding or rebound tenderness. Neurologic: AAOx3, able to follow commands and able to move all 4 extremities with no focal neurological deficit. Extremities: Bilateral lower extremity pitting pedal edema. Skin: No rash or ecchymoses. Discharge Plan Plan Patient Disposition: HOME (Self Care) Disposition Comment: stable and back to baseline Patient condition on transfer: Stable Prescriptions/Referrals Prescriptions/Med Rec: New furosemide 40 mg tablet 40 mg PO QDAY 30 Days Qty: 30 0RF Rybelsus 3 mg tablet 3 mg PO QDAY 30 Days Qty: 30 1RF oseltamivir [Tamiflu] 75 mg capsule 75 mg PO QDAY 3 Days Qty: 3 0RF (DME) FreeStyle Caroline 3 Sensor Device See Rx Instructions .Route Qty: 1 0RF Rx Instructions: As directed levofloxacin 750 mg tablet 750 mg PO QDAY 3 Days Qty: 3 0RF Continued carvedilol 6.25 mg tablet 6.25 mg PO BID gemfibrozil 600 mg tablet 600 mg PO BID Patient Comments: TAKE 1 TABLET BY MOUTH TWICE A DAY 30 MINUTES BEFORE MORNING AND EVENING MEAL loratadine 10 mg tablet 10 mg PO QDAY Patient Comments: TAKE 1 TABLET BY MOUTH EVERY DAY Discontinued furosemide 20 mg Tablet 20 mg PO Q OTHER DAY Referrals: Rod Hernandez PA-C [Primary Care Provider] - Patient/Caregiver Discharge Instructions Discharge Activity: as per physical therapy and resume usual activities Other Discharge Activity Instructions:: Follow-up with PCP in 1 to 2 weeks. Follow-up with crane hooker in 1 to 2 weeks. Follow-up with installation tech in 1 to 2 weeks. Continue using CPAP machine every night. Increased furosemide from 20 mg to 40 mg daily. Continue taking levofloxacin 750 mg daily for 3 more days. Continue taking Tamiflu 75 mg daily for 3 more days. Start taking Rybelsus 3 mg daily for weight loss. Continue all other home medications as noted above. Return to ED if symptoms worsen. Education Materials: Obesity and Its Impact on Health, Weight Manage Exercise Activity, Sleep Apnea Partner Notes, ED Influenza (Adult) Print Language: Israeli Stand Alone Forms: Domitila Award Info., Patient Portal Info Letter Discharge Order Discharge Orders: Discharge (Routine); Ordered 10/30/24 Ordered By: Jhonatan Lobato Quality Discharge Quality Measures VTE prophylaxis Attestestation MD Attestation I have examined the patient, reviewed labs and imaging findings, discussed the case with the resident(s), and reviewed entered orders. I agree with the plan of care as outlined in this note. Dr. Munoz
--- NOTE | 2024-10-30 15:09 | PC.NURSE ---
Pt discharged. Family Friend brought pt's oxygen tank. Oxygen tank empty. Waiting for family friend to bring another tank for pt.
== END 2024-10-30 16:03 | disposition home or self-care (01) | DRG 133 ==
LOC: SERX 18:28 → SERHOLD 18:35 → S3NX 22:04 → S3SX 10-27 05:24 → S2SX 10-27 12:56 → S3NX 10-29 08:32 → S3SX 11-05 12:13 → S2SX 11-05 12:13 → S3NX 11-05 12:14
PROVIDERS: Emergency Medicine; Student in an Organized Health Care Education/Training Program; Admitting Provider Internal Medicine; Emergency Provider Emergency Medicine; PCP Physician Assistant; Visit Provider Internal Medicine Critical Care Medicine
DX: J96.21 Acute and chronic respiratory failure with hypoxia (principal); J96.22 Acute and chronic respiratory failure with hypercapnia; E66.2 Morbid (severe) obesity with alveolar hypoventilation; Z68.43 Body mass index [BMI] 50.0-59.9, adult; G93.40 Encephalopathy, unspecified; E87.4 Mixed disorder of acid-base balance; J10.1 Influenza due to other identified influenza virus with other respiratory manifestations; J10.01 Influenza due to other identified influenza virus with the same other identified influenza virus pneumonia; I11.0 Hypertensive heart disease with heart failure; E11.9 Type 2 diabetes mellitus without complications; J15.9 Unspecified bacterial pneumonia; I50.33 Acute on chronic diastolic (congestive) heart failure; J10.08 Influenza due to other identified influenza virus with other specified pneumonia; F20.9 Schizophrenia, unspecified; E78.5 Hyperlipidemia, unspecified; F10.10 Alcohol abuse, uncomplicated; Z87.891 Personal history of nicotine dependence; Z79.84 Long term (current) use of oral hypoglycemic drugs; Z79.899 Other long term (current) drug therapy; Z99.89 Dependence on other enabling machines and devices
CPT/HCPCS: 36415; 36600; 71045; 80048; 80053; 80307; 81001; 82803; 83605; 83735; 83880; 84100; 84145; 84484; 85025; 87040; 87400; 87811; 93005; 93225; 94644; 94660; 96365; 96367; 96372; 96375; 97162; 99291; J0131; J0696; J1650; J1940; J1956; J2405; J3490; J7030; A9270

== ENCOUNTER 2024-12-02 21:46 | Inpatient (IN) | payer MEDICAID, SELFPAY ==
[2024-12-02 21:51] VITALS: O2SAT 99
[2024-12-02 21:52] VITALS: BP 167/104; PULSE 100; RESP 24; TEMP 36.9; O2SAT 98
--- NOTE | 2024-12-02 22:00 | XR_ITS ---
Examination: AP chest single view Technique AP portable semiupright chest single view Standing spine: December 02, 2024 10:18 PM INDICATIONS: Shortness of breath this week. FINDINGS: Pneumonia left base on the prior segment left upper lobe Mild prominence cardiac contour with moderate vascular congestion Reduced inspiratory effort Moderate osteopenia IMPRESSION: Pneumonia left base and lingular segment left upper lobe
--- NOTE | 2024-12-02 22:04 | PD.EDADULT ---
ED General RME/HPI General Chief complaint: General Adult/Misc Complain Stated complaint: SOB Time Seen by Provider: 12/02/24 21:58 Arrival date/time: 12/02/24 21:46 CC: Shortness of breath HPI patient presents to the ER via EMS state that the family called as the patient has not had his BiPAP mask for the last week. The patient just emerged from [facility] for polysubstance abuse today, and since then has been having difficulty breathing patient is somewhat somnolent, denies any pain. Related Data Home Medications ?Medication ?Instructions ?Recorded ?Confirmed carvedilol 6.25 mg tablet 6.25 mg PO BID 02/15/24 10/27/24 gemfibrozil 600 mg tablet 600 mg PO BID 02/15/24 10/27/24 loratadine 10 mg tablet 10 mg PO QDAY 02/15/24 10/27/24 Previous Rx's ?Medication ?Instructions ?Recorded blood-glucose sensor (FreeStyle #1 ea 10/30/24 Caroline 3 Sensor device) semaglutide 3 mg tablet (Rybelsus) 3 mg PO QDAY 30 days #30 tabs 10/30/24 Allergies Allergy/AdvReac Type Severity Reaction Status Date / Time No Known Allergies Allergy Unverified 02/16/24 08:13 Review of Systems Review of Systems Narrative Review of Systems: GEN: No fever, no chills, no weight loss EYES: No discharge, no visual changes, no pain HEENT: No ear pain, no congestion, no sore throat PULM:+ shortness of breath, no cough, no congestion CV: No chest pain, no dyspnea on exertion, no palpitations GI: No nausea, no vomiting, no diarrhea, no pain, no constipation : No frequency, no urgency, no dysuria MUSC/SKEL: No joint pain, no back pain SKIN: No rash PSYCH: No hallucinations, no depression HEME/LYMPH: No easy bleeding or bruising tendencies NEURO: No weakness, no headache Past Medical History Past Medical History NEUROLOGIC: Negative Neurological Disorders or Seizures CARDIAC: Positive Cardiac Disorders, Hypercholesterolemia and Hypertension; Negative Congestive Heart Failure RESPIRATORY: Positive Chronic Obstructive Pulmonary Disease (COPD), Asthma and Sleep Apnea GASTROINTESTINAL: Negative Gastrointestinal Disorders GENITOURINARY: Negative Genitourinary Disorders or Renal Disease MUSCULOSKELETAL: Negative Musculoskeletal Disorders ENDOCRINE: Positive Endocrine Disorders and Diabetes Mellitus Type 2; Negative Diabetes Mellitus Type 1 HEMATOLOGIC: Negative Blood Disorders or Sickle Cell Disease PSYCHO/SOCIAL: Positive Schizophrenia and Recreational Drug Use OTHER HISTORY: Positive Chicken Pox; Negative Blood Transfusions, Blood Transfusion Reaction, Anesthesia Reactions or Cancer Family History FAMILY HISTORY: Negative Family Cardiac Disorders Social History SMOKING STATUS: Never smoker SECOND HAND EXPOSURE: No ED Exam Narrative Physical exam: [General: Morbidly obese Head normocephalic HEENT: Within acceptable limits Neck is supple nontender Chest equal chest rise nontender to palpation Respiratory: Unable to auscultate in the bases secondary to body habitus. CV: Rate rhythm is regular no murmurs rubs or clicks Abdomen is grossly distended secondary to body habitus soft nontender no masses positive bowel sounds all 4 quadrants Back: No CVA tenderness no spinous process tenderness from cervical spine thoracic and lumbar spine Skin: Intact no petechiae rash induration ulceration or crepitus Extremities: Moving all extremity against resistance cap refill less than 2 seconds neurosensory intact Neuro: Awake alert oriented x2, person and place, Glascow coma 15 no focal deficits] Course Quality Measures VTE prophylaxis Orders Category Date Time Status Bedside COVID-19 Antigen Test NOW Care 12/02/24 23:02 Active Bedside Influenza A&B Antigen Test NOW Care 12/02/24 23:02 Completed COVID-19 Screening Questionnaire NOW Care 12/03/24 01:03 Active Decision to Admit X1 Care 12/03/24 01:03 Completed EKG (ED ONLY) *Do not use* NOW Care 12/02/24 22:00 Completed EKG (ED Only) Stat Exams 12/02/24 22:00 Ordered XR chest 1V Stat Exams 12/02/24 22:00 Completed ABG [Arterial Blood Gas] Stat Lab 12/02/24 22:20 Completed Alcohol, Blood Medical Stat Lab 12/02/24 22:35 Completed B-Type Natriuretic Peptide Stat Lab 12/02/24 22:35 Completed CBC Stat Lab 12/02/24 22:35 Completed Comprehensive Metabolic Panel Stat Lab 12/02/24 22:35 Completed Drug Screen,Urine Stat Lab 12/02/24 23:22 Completed LDH (Lactate Dehydrogenase) Stat Lab 12/02/24 22:35 Completed Magnesium Stat Lab 12/02/24 22:35 Completed Partial Thromboplastin Time Stat Lab 12/02/24 22:35 Completed Prothrombin Time with INR Stat Lab 12/02/24 22:35 Completed Troponin I Stat Lab 12/02/24 22:35 Completed Urinalysis Stat Lab 12/02/24 23:22 Completed VBG [Venous Blood Gas] Stat Lab 12/02/24 22:35 Completed Oseltamivir [Tamiflu] Med 12/03/24 01:00 Discontinued 75 mg PO X1 ONE BiPAP / CPAP NOW RT 12/02/24 22:03 Active Vital Signs Vital signs: Vital Signs Temperature 98.4 F 12/02/24 21:52 Pulse Rate 100 12/02/24 21:52 Respiratory Rate 24 H 12/02/24 21:52 Blood Pressure 167/104 H 12/02/24 21:52 Pulse Oximetry (%) 98 12/02/24 21:52 Oxygen Delivery Method Oxy Mask 12/02/24 21:52 Oxygen Flow Rate 15 12/02/24 21:52 [facility] Patient data External records reviewed:: EMS form Clinical information provided by:: patient and EMS Social determinants that could affect healthcare access:: none Patient has the following chronic illnesses:: Morbid obesity sleep apnea How is presenting disease/condition affected by chronic disease/condition?: exacerbated by Evaluation data The following diagnostics were reviewed and interpreted by me:: radiology exam(s) Lab and/or radiology exams considered but not ordered:: EKG performed at 2220, shows ventricular rate of 99 MD interval 192 QRS of 78 QTc of 387 this is sinus rhythm. Interpretation Summary: Needs an admission for sleep apnea Medications Medications considered but not ordered:: None Medication administrations:: Medication Administration History Acetaminophen (Acetaminophen Supp 650 Mg Supp) 650 mg MD Q6HR PRN PRN Reason: Fever > 100.3 Stop: 01/02/25 02:18 Albuterol/Ipratropium (Albuterol/Ipratropium (Duoneb) Rt Katarina 3 Ml Nebu) 3 ml INH Q4HRRT [facility] Stop: 01/02/25 10:59 Enoxaparin Sodium (Enoxaparin Sod Inj 40 Mg/0.4 Ml Syringe) 40 mg SC QDAY [facility] Stop: 12/17/24 08:59 Last Admin: 12/03/24 08:01 Dose: 40 mg Documented By: Ceftriaxone Sodium/Dextrose (Rocephin/D5w 1gm Iv Premix) 50 mls @ 100 mls/hr IV QDAY [facility] Stop: 12/10/24 08:28 Last Infusion: 12/03/24 09:27 Dose: Infused Documented By: Admin: 12/03/24 08:52 Dose: 100 mls/hr Documented By: DORA Azithromycin 500 mg/ Sodium (Chloride) 250 mls @ 250 mls/hr IV QDAY JEANNE Stop: 12/10/24 08:28 Last Infusion: 12/03/24 10:35 Dose: Infused Documented By: Admin: 12/03/24 09:27 Dose: 250 mls/hr Documented By: FREDERICK Magnesium Hydroxide (Milk Of Magnesia Susp 30 Ml Udc) 30 ml PO QDAY PRN; Protocol PRN Reason: CONSTIPATION Stop: 01/02/25 02:18 Ondansetron HCl (Ondansetron Inj 2 Mg/Ml Inj 2 Ml) 4 mg IV Q6H PRN; Protocol PRN Reason: NAUSEA OR VOMITING Stop: 01/02/25 02:18 Last Admin: 12/03/24 07:54 Dose: 4 mg Documented By: FREDERICK Oseltamivir Phosphate (Oseltamivir 75 Mg Capsule) 75 mg PO BID JEANNE Stop: 12/10/24 08:59 Last Admin: 12/03/24 08:00 Dose: 75 mg Documented By: FREDERICK Pantoprazole Sodium (Pantoprazole Inj 40 Mg Vial) 40 mg IVP QDAY JEANNE Stop: 01/02/25 08:59 Last Admin: 12/03/24 08:01 Dose: 40 mg Documented By: FREDERICK Discontinued Medications Albuterol/Ipratropium (Albuterol/Ipratropium (Duoneb) Rt Katarina 3 Ml Nebu) 3 ml INH Q6HRRT PRN PRN Reason: SOB OR WHEEZE Stop: 01/02/25 06:59 Albuterol/Ipratropium (Albuterol/Ipratropium (Duoneb) Rt Katarina 3 Ml Nebu) 3 ml INH Q6HRRT JEANNE Stop: 01/02/25 10:59 Oseltamivir Phosphate (Oseltamivir 75 Mg Capsule) 75 mg PO X1 ONE Stop: 12/03/24 01:01 Last Admin: 12/03/24 01:24 Dose: 75 mg Documented By: TITI None Consultations Consultation(s) initiated? (list below): No Diagnosis Differential Diagnosis ED Complaint MDM: Respiratory failure pneumonia sleep apnea Most likely diagnosis given after review of the tests above:: Sleep apnea Admission Indicated Admission indicated?: indicated Explain why admission is indicated or not indicated:: Requires further medical management Admission Request Was there a request for admission?: No Disposition Plan Disposition Plan: Admit Medical Decision Making Differential Diagnosis Differential Diagnosis: Respiratory failure pneumonia sleep apnea Lab Data 12/03/24 03:30 12/03/24 03:30 Labs: Lab Results 12/02/24 12/02/24 12/02/24 Range/Units 22:20 22:35 23:22 WBC 10.0 (3.8-10.6) Thou/mm3 RBC 4.82 (4.50-5.90) Miln/mm3 Hgb 13.5 (13.5-16.0) g/dL Hct 43.2 (41.0-53.0) % MCV 90 (80-100) fL MCH 28.0 (25.0-35.0) pg MCHC 31.3 (31.0-37.0) g/dl RDW Std Deviation 53.1 H (35.1-43.9) fL Plt Count 237 (140-440) Thou/mm3 Neut % (Auto) 74 (37-80) % Lymph % (Auto) 14 (10-50) % [place] % (Auto) 6 (0-12) % Eos % (Auto) 5 (0-10) % Baso % (Auto) 1 (0-2.5) % Neut # (Auto) 7.4 (1.8-7.7) Thou/mm3 Lymph # (Auto) 1.4 (1.0-4.8) Thou/mm3 [place] # (Auto) 0.6 (0.0-0.8) Thou/mm3 Eos # (Auto) 0.5 (0.0-0.5) Thou/mm3 Baso # (Auto) 0.1 (0.0-0.2) Thou/mm3 Immature Gran # (Auto) 0.14 H (0.00-0.00) Thou/mm3 Absolute Nucleated RBC 0.00 (0.00-0.00) Thou/mm3 Immature Gran % 1 H (0-0) % Nucleated RBC % 0 (0) /100 WBC PT 11.0 (9.0-12.2) Seconds INR 1.0 (0.9-1.3) APTT 27.1 (22.0-36.0) Seconds Puncture Site Right Radial ABG pH 7.28 L (7.35-7.45) ABG pCO2 68 H (32.0-48.0) mmHg ABG pO2 74 L (83-108) mmHg ABG HCO3 32 H (20-26) mEq/L ABG O2 Saturation 93 (91-98) % ABG Base Excess 3 (-3-3) VBG pH 7.27 L (7.33-7.66) VBG pCO2 67 H (36-56) mmHg VBG pO2 65 H (15-58) mmHg VBG O2 Sat (Daryl) 91 L (96-97) % VBG Base Excess 2 (-3-3) FiO2 30 % Sodium 139 (136-145) mMol/L Potassium 4.1 (3.4-5.1) mMol/L Chloride 103 (98-107) mMol/L Carbon Dioxide 29.9 (20.0-31.0) mMol/L Anion Gap 6 L (7-16) BUN 19 (9-23) mg/dL Creatinine 1.1 (0.6-1.3) mg/dL Estim Creat Clear Calc Not Performed. eGFR > 60 (60 - ) See Note BUN/Creatinine Ratio 17 (12-20) Ratio Glucose 173 H (74-106) mg/dL Calculated Osmolality 283 (275-295) Calcium 9.1 (8.3-10.6) mg/dL Corrected Calcium 9.1 (8.5-10.1) mg/dL Magnesium 2.2 (1.6-2.6) mg/dL Total Bilirubin 0.3 (0.3-1.2) mg/dL AST 39 H (0-34) U/L ALT 68 H (10-49) U/L Alkaline Phosphatase 109 (46-116) U/L Lactate Dehydrogenase 240 (120-246) U/L Troponin I < 0.020 (0.0-0.045) ng/mL B-Natriuretic Peptide < 20 (0-100) pg/mL Total Protein 7.5 (5.7-8.2) gm/dL Albumin 4.3 (3.5-5.0) gm/dL Globulin 3.2 (2.3-3.5) gm/dL Albumin/Globulin Ratio 1.3 (1.2-2.2) Ur Collection Type Clean Catch Urine Color Lt-Yellow (Lt Yel-Yel) Urine Clarity Clear (Clear/Hazy) Urine pH 6.5 (5.0-7.0) Ur Specific Steger 1.022 (1.001-1.035) Urine Protein Trace (Neg - Trace) Urine Glucose (UA) Negative (Negative) Urine Ketones Negative (Negative) Urine Blood Negative (Negative) Urine Nitrite Negative (Negative) Urine Bilirubin Negative (Negative) Urine Urobilinogen (Auto) Negative (0.0-1.0) mg/dL Ur Leukocyte Esterase Negative (Negative) Urine RBC 2 (0-3) /hpf Urine WBC 1 (0-5) /hpf Ur Squamous Epith Cells < 1 (0-5) /hpf Urine Bacteria None (None) Hyaline Casts < 1 (0-1) /hpf Urine Opiates Screen Negative (Negative) Urine Fentanyl Screen Negative (Negative) Ur Barbiturates Screen Negative (Negative) U Amphetamin/Meth Scrn Negative (Negative) U Benzodiazepines Scrn Negative (Negative) U Cocaine Metab Screen Negative (Negative) U Marijuana (THC) Screen Negative (Negative) Ethyl Alcohol < 3.0 (0-10.0) mg/dL Discharge Plan Plan Patient Disposition: Admit Acute Care w/in Hospital Disposition Comment: Med/tele Problem List Clinical Impression: BHAVESH (obstructive sleep apnea), Acute respiratory failure with hypoxia and hypercapnia, Obesity hypoventilation syndrome, Influenza B
--- NOTE | 2024-12-02 22:17 | PC.NURSE ---
Initial contact with pt. Pt sleepy but awaken to verbal stimuli. Brought in to [facility]1 with c/o SOB, has not been wearing his CPAP at home, lost his mask per pt. RT at bedside setting up BIPAP.
[2024-12-02 22:33] VITALS: PULSE 99; RESP 20; RESP 33; O2SAT 93
[2024-12-02 22:33] LABS: Base Excess 3 (-3-3); HCO3 32 mEq/L (20-26); Inspired Oxygen, FIO2 30 %; O2 Saturation 93 % (91-98); PCO2 68 mmHg (32.0-48.0); PO2 74 mmHg (83-108); Puncture Site Right Radial; pH, Arterial 7.28 (7.35-7.45)
[2024-12-02 22:34] LABS: Allen Test Performed/OK
[2024-12-02 22:59] LABS: Base Excess, Venous 2 (-3-3); O2 Saturation, Venous 91 % (96-97); PCO2, Venous 67 mmHg (36-56); PO2, Venous 65 mmHg (15-58); pH, Venous 7.27 (7.33-7.66)
[2024-12-02 23:01] LABS: Basophils # (Auto) 0.1 Thou/mm3 (0.0-0.2); Basophils % (Auto) 1 % (0-2.5); Eosinophils # (Auto) 0.5 Thou/mm3 (0.0-0.5); Eosinophils % (Auto) 5 % (0-10); Hematocrit 43.2 % (41.0-53.0); Hemoglobin 13.5 g/dL (13.5-16.0); Immature Granulocytes % (Auto) 1 % (0-0); Immature Granulocytes Auto 0.14 Thou/mm3 (0.00-0.00); Lymphocytes # (Auto) 1.4 Thou/mm3 (1.0-4.8); Lymphocytes % (Auto) 14 % (10-50); Mean Corpuscular HGB Conc 31.3 g/dl (31.0-37.0); Mean Corpuscular Volume 90 fL (80-100); Monocytes # (Auto) 0.6 Thou/mm3 (0.0-0.8); Monocytes % (Auto) 6 % (0-12); Neutrophils # (Auto) 7.4 Thou/mm3 (1.8-7.7); Neutrophils % (Auto) 74 % (37-80); Nucleated Red Blood Cell % 0 /100 WBC (0); Platelet Count 237 Thou/mm3 (140-440); RDW Standard Deviation 53.1 fL (35.1-43.9); Red Blood Count 4.82 Miln/mm3 (4.50-5.90)
[2024-12-02 23:05] VITALS: BP 152/78; PULSE 99; RESP 22; TEMP 36.7; O2SAT 94
[2024-12-02 23:14] LABS: Partial Thromboplastin Time 27.1 Seconds (22.0-36.0)
--- NOTE | 2024-12-02 23:47 | EDNOTE_ITS ---
Emergency Room Addendum Addendum Narrative: 2300 Care assumed from Dallin Lin NP. Past medical, surgical, social and family history reviewed. Vitals and home medications reviewed. Results and treatment plan discussed. I will assume the care of the patient at this time and will follow the patient, pending remaining working, serial reexaminations and final disposition. Please refer to the emergency department record for initial history and examination. While in ED observation the patient will have access to water, food, and personal hygiene. If the patient takes home medication(s), they will be continued in ED observation. Physical exam by me shows patient under no acute distress at this time. [id number] Hospitalist resident made aware of the patient?s HPI, PMHx, lab and/or radiology results. Treatment plan was discussed. Accepts patient for admission. Critical Care Time Critical Care Time Critical Care Time: Yes Total Critical Care Time (min.): 35 Attestation: The high probability of sudden, clinically significant deterioration in the patient?s condition required the highest level of my preparedness to intervene urgently. ? The services I provided to this patient were to treat and/or prevent clinically significant deterioration. Services included the following: chart data review, reviewing nursing notes and/or old charts, documentation time, financial operations consultant collaboration regarding findings and treatment options, medication orders and management, direct patient care, vital sign assessments and ordering, interpreting and reviewing diagnostic studies and lab tests. ? Aggregate critical care time includes only time during which I was engaged in work directly related to the patient?s care, as described above, whether at bedside or elsewhere in the Emergency Department. It did not include time spent performing other reported procedures or the services of residents, students, nurses or physician assistants. Discharge Plan Plan Patient Disposition: Admit Acute Care w/in Hospital Problem List Clinical Impression: BHAVESH, Influenza B, Acute respiratory failure with hypoxia and hypercapnia, Obesity hypoventilation syndrome MD Attestation Attestation Scribe Attestation: I, Alisia Saeed, am scribing for and in the presence of Dr. Daugherty. Provider Notation: Although this document has been carefully reviewed, there may still be some phonetic and other typographical errors. These errors are purely grammatical due to imperfections in the software program and should not be construed in any way to compromise the substance of the patient's medical care during this visit.
[2024-12-02 23:49] LABS: B-Type Natriuretic Peptide < 20 pg/mL (0-100)
[2024-12-02 23:57] LABS: Alanine Aminotransferase 68 U/L (10-49); Albumin, Serum 4.3 gm/dL (3.5-5.0); Albumin/Globulin Ratio 1.3 (1.2-2.2); Alcohol, Blood Medical < 3.0 mg/dL (0-10.0); Alkaline Phosphatase 109 U/L (46-116); Anion Gap 6 (7-16); Aspartate Amino Transferase 39 U/L (0-34); BUN/Creatinine Ratio 17 Ratio (12-20); Bilirubin,Total 0.3 mg/dL (0.3-1.2); Blood Urea Nitrogen 19 mg/dL (9-23); Calcium 9.1 mg/dL (8.3-10.6); Calcium (Corrected) 9.1 mg/dL (8.5-10.1); Carbon Dioxide 29.9 mMol/L (20.0-31.0); Chloride 103 mMol/L (98-107); Creatinine (Component) 1.1 mg/dL (0.6-1.3); Globulin 3.2 gm/dL (2.3-3.5); Glucose 173 mg/dL (74-106); Magnesium 2.2 mg/dL (1.6-2.6); Osmolality,Calculated 283 (275-295); Potassium 4.1 mMol/L (3.4-5.1); Sodium 139 mMol/L (136-145); Total Protein 7.5 gm/dL (5.7-8.2); Troponin I < 0.020 ng/mL (0.0-0.045); eGFR > 60 See Note
[2024-12-03] VITALS (82 sets, daily range): BP systolic 78–178; BP diastolic 44–104; PULSE 78–117; RESP 14–40; TEMP 36.2–37.7; O2SAT 86–905; BMI 50.1
[2024-12-03 00:11] LABS: LDH (Lactate Dehydrogenase) 240 U/L (120-246)
[2024-12-03 00:16] LABS: Collection Type, Urine Clean Catch
[2024-12-03 00:24] LABS: Bilirubin,Urine Negative (Negative); Blood,Urine Negative (Negative); Clarity,Urine Clear (Clear/Hazy); Color,Urine Lt-Yellow (Lt Yel-Yel); Glucose, Urine Negative (Negative); Hyaline Casts,Urine < 1 /hpf (0-1); Ketones,Urine Negative (Negative); Leukocyte Esterase,Urine Negative (Negative); Nitrite,Urine Negative (Negative); PH,Urine 6.5 (5.0-7.0); Protein,Urine Trace (Neg - Trace); RBC,Urine 2 /hpf (0-3); Specific Gravity,Urine 1.022 (1.001-1.035); Squamous Epithelial Cell,Urine < 1 /hpf (0-5); Urobilinogen,Urine Negative mg/dL (0.0-1.0); WBC,Urine 1 /hpf (0-5)
[2024-12-03 01:11] LABS: Amphetamine/Methamp Scrn,U Negative (Negative); Barbiturate Screen,Urine Negative (Negative); Benzodiazepines Screen,Urine Negative (Negative); Benzoylecgonine Screen, Ur Negative (Negative); Fentanyl Screen,Urine Negative (Negative); Opiate Screen,Urine Negative (Negative); THC Screen,Urine Negative (Negative)
[2024-12-03] MEDS: OSELTAMIVIR 75 MG CAPSULE PO ×3 (01:24→20:39)
--- NOTE | 2024-12-03 01:56 | PC.NURSE ---
Pt seen by [facility].
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
[2024-12-03 03:53] LABS: Base Excess, Venous 3 (-3-3); O2 Saturation, Venous 96 % (96-97); PCO2, Venous 70 mmHg (36-56); PO2, Venous 86 mmHg (15-58); pH, Venous 7.27 (7.33-7.66)
[2024-12-03 04:12] LABS: Basophils # (Auto) 0.1 Thou/mm3 (0.0-0.2); Basophils % (Auto) 1 % (0-2.5); Eosinophils # (Auto) 0.3 Thou/mm3 (0.0-0.5); Eosinophils % (Auto) 3 % (0-10); Hemoglobin 14.1 g/dL (13.5-16.0); Immature Granulocytes % (Auto) 2 % (0-0); Immature Granulocytes Auto 0.22 Thou/mm3 (0.00-0.00); Lymphocytes # (Auto) 1.4 Thou/mm3 (1.0-4.8); Lymphocytes % (Auto) 14 % (10-50); Mean Corpuscular HGB Conc 31.3 g/dl (31.0-37.0); Mean Corpuscular Volume 89 fL (80-100); Monocytes # (Auto) 0.5 Thou/mm3 (0.0-0.8); Monocytes % (Auto) 5 % (0-12); Neutrophils # (Auto) 7.4 Thou/mm3 (1.8-7.7); Neutrophils % (Auto) 75 % (37-80); Nucleated Red Blood Cell % 0 /100 WBC (0); Platelet Count 225 Thou/mm3 (140-440); RDW Standard Deviation 53.1 fL (35.1-43.9); Red Blood Count 5.04 Miln/mm3 (4.50-5.90); White Blood Count 9.9 Thou/mm3 (3.8-10.6)
[2024-12-03 04:21] LABS: Anion Gap 6 (7-16); BUN/Creatinine Ratio 18 Ratio (12-20); Blood Urea Nitrogen 18 mg/dL (9-23); Calcium 8.9 mg/dL (8.3-10.6); Chloride 102 mMol/L (98-107); Estimated Creatinine Clearance 130.3 mL/min (>60); Glucose 177 mg/dL (74-106); Osmolality,Calculated 283 (275-295); Potassium 4.2 mMol/L (3.4-5.1); Sodium 139 mMol/L (136-145); eGFR > 60 See Note
[2024-12-03] MEDS: ONDANSETRON INJ 2 MG/ML INJ 2 ML 4 MG IV (07:54)
[2024-12-03] MEDS: PANTOPRAZOLE INJ 40 MG VIAL IVP (08:01)
[2024-12-03] MEDS: ENOXAPARIN SOD INJ 40 MG/0.4 ML SYRINGE SC (08:01)
--- NOTE | 2024-12-03 08:13 | PC.CC ---
ASW attempted to meet with pt Zay Reyes at bedside to complete initial assessment. ASW used PPE precautions due to pts positive flu results. ASW only able to collect limited information as pt is alert to name and is able to respond but falls back to sleep. Pt is from home, [address] [place] [address], where he lives with his sister. Pt identifies his mother Lakisha Kirby [phone] as surrogate DM. ASW was unable to collect any further information from pt.
--- NOTE | 2024-12-03 08:38 | PC.NURSE ---
Patient had episode of emesis at approximately 0740. Patient self removed bipap, RN assisted patient with emesis bag. RT notified. Patient placed on a oxymask at 15 L. Zofran given
[2024-12-03] MEDS: cefTRIAXone/D5w 1gm IV premix 50 ML IV (08:52)
[2024-12-03] MEDS: AZITHROMYCIN INJ 500 MG in SODIUM CHLORIDE 0.9% 250 ML 250 ML 250 MG IV (09:27)
[2024-12-03 10:15] LABS: Base Excess 2 (-3-3); HCO3 34 mEq/L (20-26); Inspired O2, VO2 Liters 15 L/min; O2 Saturation 94 % (91-98); PCO2 94 mmHg (32.0-48.0); PO2 81 mmHg (83-108)
[2024-12-03 10:18] LABS: pH, Arterial 7.17 (7.35-7.45)
[2024-12-03 10:19] LABS: Allen Test Performed/OK; Puncture Site Right Radial
--- NOTE | 2024-12-03 10:42 | CHAP ---
Patient sleeping. Prayed a quiet prayer.
--- NOTE | 2024-12-03 11:29 | PD.RESEVENT ---
Documentation for date of: 12/03/24 Event Note Event Note: A 44 year old male with past medical history of obesity, hypertension, type 2 diabetes, schizophrenia, obstructive sleep apnea on 2 L oxygen and CPAP brought the hospital in ambulance with chief complaints of shortness of breath and admitted in the hospital for acute hypoxic respiratory failure secondary to influenza B. He was admitted overnight ,Patient was examined bedside this morning, he was altered , he was on 15 L of oxy mask because he pulled out his BiPAP and had 1 episode of vomiting. Stat ABG was ordered. Which showed pH of 7.17, pCO2 of 94, pO2 of 81 and bicarb of 34. ICU team was consulted for worsening symptoms. And high risk because he was pulling out BiPAP and was vomiting. ICU graceously accepted the patient. Patient upgraded to ICU for impending respiratory failure with possible intubation. Discussed the patient with my attending Dr Mahmood, Tiffanie Alberts MD,PGY-3
[2024-12-03] MEDS: ETOMIDATE INJ 2 MG/ML VIAL 10 ML 20 MG IVP (11:41)
[2024-12-03] MEDS: ROCURONIUM INJ 10 MG/ML VIAL 10 ML 100 MG IVP (11:41)
[2024-12-03] MEDS: LORazepam 2 MG/ML VIAL IVP (11:41)
--- NOTE | 2024-12-03 11:51 | XR_ITS ---
Examination: AP chest single view TECHNIQUE: Supine chest single view Exam date and time: December 03, 2024 1211 hours Comparison September 16, 2024 INDICATIONS: Hypoxic respiratory failure postintubation this week. FINDINGS: Endotracheal tube tip 4.2 cm above jennifer Prominent vascular congestion Mild enlargement cardiac contour Significant bibasilar pneumonia with layering pleural fluid Orogastric tube in the stomach IMPRESSION: Heart failure pattern Significant pneumonia at the lung bases
[2024-12-03] MEDS: ALBUTEROL/IPRATROPIUM (Duoneb) RT SOL 3 ML NEBU INH ×4 (12:06→22:53)
[2024-12-03] MEDS: fentaNYL 2,500 MCG/250 ML BAG 2,500 MCG/250 ML BAG IV (12:10)
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
[2024-12-03] MEDS: PROPOFOL 1,000 MG IVPB 1,000 MG/100 ML VIAL 4.355 MG IV (12:27)
[2024-12-03 12:33] LABS: Base Excess 4 (-3-3); HCO3 33 mEq/L (20-26); Inspired Oxygen, FIO2 100 %; O2 Saturation 92 % (91-98); PCO2 69 mmHg (32.0-48.0); PO2 62 mmHg (83-108); pH, Arterial 7.29 (7.35-7.45)
[2024-12-03 12:40] LABS: Allen Test Performed/OK; Puncture Site Right Brachial
--- NOTE | 2024-12-03 15:40 | EKG_ITS ---
[facility] Test Date: 2024-12-03 Pat Name: CIERRA ROBERTS Department: Room: [facility] Gender: Male [employer] Biller: : 1980 Requested By: Mary Christopher Order Number: [id number] Reading MD: Mary Christopher Measurements Intervals [place] Rate: 99 P: 71 MT: 192 QRS: 46 QRSD: 78 T: 50 QT: 331 QTc: 425 Interpretive Statements SINUS RHYTHM LOW QRS VOLTAGE IN PRECORDIAL LEADS [QRS DEFLECTION < 1.0 mV IN CHEST LEADS] Compared to ECG 10/26/2024 16:33:37 No significant changes /store/S0/[id number]
[2024-12-03] MEDS: MethylPREDNISolone SOD SUCC 62.5 MG/ML 2ML VIAL 125 MG IVP (15:56)
--- NOTE | 2024-12-03 16:09 | PD.INTPROG ---
Documentation for date of: 12/03/24 Subjective Subjective Interval history: This is a 44-year-old male who presents to the ER for shortness of breath. In the ED a flu swab checked and found to be positive. The patient is lethargic but arousable. He is hypoxic and hypercapnic. He is noncompliant with the BiPAP. He has had episodes of vomiting and removing the BiPAP. He was admitted overnight by the floor team however the ICU was consulted due to decreasing in mentation and worsening of his ABG. The decision was made to intubate the patient. Critical Care Note Critical care time (min.): 75 Exam Vital Signs Temp Pulse Resp BP Pulse Ox O2 Del Method O2 Flow Rate 97.3 F 103 H 22 H 132/82 H 94 L Mechanical Ventilation 15 12/03/24 08:19 12/03/24 15:00 12/03/24 15:00 12/03/24 15:00 12/03/24 15:00 12/03/24 15:00 12/03/24 09:06 FiO2 90 12/03/24 15:00 Narrative Exam Xrfnlvz-cbr-okdznxyby, super morbidly obese HEENT-normocephalic, atraumatic, sclera icteric, oral mucosa is dry, BiPAP in place, adequate dentition Chest-lung sounds severely diminished bilaterally, heart regular rhythmic, no bruits murmurs, no crackles auscultated though difficult to hear due to body habitus Abdomen-obese, soft, nontender, bowel sounds present, no rebound or guarding Extremities-3+ pitting edema bilateral lower extremities, pulses palpable, no clubbing or mottling noted, moves all 4 extremities, no focal neurological deficit Physical Exam Completion Physical Exam Complete?: Yes Objective - Mlt Labs 12/04/24 04:36 12/04/24 04:36 Labs: Laboratory Results - last 24 hr 12/02/24 12/02/24 12/02/24 22:20 22:35 23:22 WBC 10.0 RBC 4.82 Hgb 13.5 Hct 43.2 MCV 90 MCH 28.0 MCHC 31.3 RDW Std Deviation 53.1 H Plt Count 237 Neut % (Auto) 74 Lymph % (Auto) 14 [place] % (Auto) 6 Eos % (Auto) 5 Baso % (Auto) 1 Neut # (Auto) 7.4 Lymph # (Auto) 1.4 [place] # (Auto) 0.6 Eos # (Auto) 0.5 Baso # (Auto) 0.1 Immature Gran # (Auto) 0.14 H Absolute Nucleated RBC 0.00 Immature Gran % 1 H Nucleated RBC % 0 PT 11.0 INR 1.0 APTT 27.1 Puncture Site Right Radial ABG pH 7.28 L ABG pCO2 68 H ABG pO2 74 L ABG HCO3 32 H ABG O2 Saturation 93 ABG Base Excess 3 VBG pH 7.27 L VBG pCO2 67 H VBG pO2 65 H VBG O2 Sat (Daryl) 91 L VBG Base Excess 2 Oxygen Liter Flow FiO2 30 Sodium 139 Potassium 4.1 Chloride 103 Carbon Dioxide 29.9 Anion Gap 6 L BUN 19 Creatinine 1.1 Estim Creat Clear Calc Not Performed. eGFR > 60 BUN/Creatinine Ratio 17 Glucose 173 H Calculated Osmolality 283 Calcium 9.1 Corrected Calcium 9.1 Magnesium 2.2 Total Bilirubin 0.3 AST 39 H ALT 68 H Alkaline Phosphatase 109 Lactate Dehydrogenase 240 Troponin I < 0.020 B-Natriuretic Peptide < 20 Total Protein 7.5 Albumin 4.3 Globulin 3.2 Albumin/Globulin Ratio 1.3 Ur Collection Type Clean Catch Urine Color Lt-Yellow Urine Clarity Clear Urine pH 6.5 Ur Specific [place] 1.022 Urine Protein Trace Urine Glucose (UA) Negative Urine Ketones Negative Urine Blood Negative Urine Nitrite Negative Urine Bilirubin Negative Urine Urobilinogen (Auto) Negative Ur Leukocyte Esterase Negative Urine RBC 2 Urine WBC 1 Ur Squamous Epith Cells < 1 Urine Bacteria None Hyaline Casts < 1 Urine Opiates Screen Negative Urine Fentanyl Screen Negative Ur Barbiturates Screen Negative U Amphetamin/Meth Scrn Negative U Benzodiazepines Scrn Negative U Cocaine Metab Screen Negative U Marijuana (THC) Screen Negative Ethyl Alcohol < 3.0 12/03/24 12/03/24 12/03/24 03:30 09:55 12:25 WBC 9.9 RBC 5.04 Hgb 14.1 Hct 45.0 MCV 89 MCH 28.0 MCHC 31.3 RDW Std Deviation 53.1 H Plt Count 225 Neut % (Auto) 75 Lymph % (Auto) 14 [place] % (Auto) 5 Eos % (Auto) 3 Baso % (Auto) 1 Neut # (Auto) 7.4 Lymph # (Auto) 1.4 [place] # (Auto) 0.5 Eos # (Auto) 0.3 Baso # (Auto) 0.1 Immature Gran # (Auto) 0.22 H Absolute Nucleated RBC 0.00 Immature Gran % 2 H Nucleated RBC % 0 PT INR APTT Puncture Site Right Radial Right Brachial ABG pH 7.17 L* D 7.29 L D ABG pCO2 94 H* D 69 H D ABG pO2 81 L 62 L ABG HCO3 34 H 33 H ABG O2 Saturation 94 92 ABG Base Excess 2 4 H VBG pH 7.27 L VBG pCO2 70 H VBG pO2 86 H D VBG O2 Sat (Daryl) 96 VBG Base Excess 3 Oxygen Liter Flow 15 FiO2 100 Sodium 139 Potassium 4.2 Chloride 102 Carbon Dioxide 31.0 Anion Gap 6 L BUN 18 Creatinine 1.0 Estim Creat Clear Calc 130.3 eGFR > 60 BUN/Creatinine Ratio 18 Glucose 177 H Calculated Osmolality 283 Calcium 8.9 Corrected Calcium Magnesium Total Bilirubin AST ALT Alkaline Phosphatase Lactate Dehydrogenase Troponin I B-Natriuretic Peptide Total Protein Albumin Globulin Albumin/Globulin Ratio Ur Collection Type Urine Color Urine Clarity Urine pH Ur Specific [place] Urine Protein Urine Glucose (UA) Urine Ketones Urine Blood Urine Nitrite Urine Bilirubin Urine Urobilinogen (Auto) Ur Leukocyte Esterase Urine RBC Urine WBC Ur Squamous Epith Cells Urine Bacteria Hyaline Casts Urine Opiates Screen Urine Fentanyl Screen Ur Barbiturates Screen U Amphetamin/Meth Scrn U Benzodiazepines Scrn U Cocaine Metab Screen U Marijuana (THC) Screen Ethyl Alcohol Assessment & Plan Additional Assessment Additional Assessment: In summary is a 44-year-old male admitted to the ICU with acute hypoxic respiratory failure 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 Encephalopathy likely secondary to hypoxia and hypercapnia- once pt is intubated will need meds for sedation to maintain RASS -1 to 0 CV CHF- started on diuresis, last echo showed EF of 65-70% , good UOP Dyslipidemia- on gemfibrozil Resp Acute hypoxic hypercapnic respiratory failure-currently intubated and on mechanical ventilation, follow-up on ABG and chest x-ray, wean as able - improvement in sats and PCO2 levels on follow up ABG PNA- sputum cx pending, on ceftri/azithro Renal Stable GI GI prophylaxis- PPI Super morbid obesity Endo Hyperglycemia- SSI Heme DVT prophylaxis- lovenox 60mg q12 ID PNA- on abx case d/w ICU team labs, imaging, records reviewed ~75ccmin required for eval, exam, review, intervention, discussion and formulation of POC for this critically ill pt at high risk for further and ongoing Provider Notation Provider Notation: Although this document has been carefully reviewed, there may still be some phonetic and other typographical errors. These errors are purely grammatical due to imperfections in the software program and should not be construed in any way to compromise the substance of the patient's medical care during this visit. Thank you for the opportunity and privilege in assisting you with this patient's care and management.
--- NOTE | 2024-12-03 17:23 | ESOP_ITS ---
Procedures Procedure Date / Time 12/03/24 1700 Arterial Line Indication(s): frequent arterial line sampling and hypoxic resp failure Informed consent obtained: obtained from surrogate decision maker Time out done, and the following verified: correct patient, side and site, procedure, patient position and implants and/or equipment Size (Gauge): 14 Technique used: guide wire technique Post-Procedure: line sutured into place and dry sterile dressing placed Patient tolerated procedure: well EBL(ml): 5 Complications: none Site: right and radial Procedure comment: Procedure was performed under supervision of Dr. Walsh. Ced Liu MD, PGY 2. Disclaimer: This note was dictated by speech recognition. Minor errors in financial retirement plan specialist may be present due to voice recognition software.
[2024-12-03] MEDS: FUROSEMIDE INJ 10 MG/ML 4ML VIAL 40 MG IVP (17:38)
[2024-12-03] MEDS: PROPOFOL 1,000 MG IVPB 1,000 MG/100 ML VIAL 34.836 MG IV ×2 (19:04→22:28)
--- NOTE | 2024-12-03 20:08 | EKG_ITS ---
[facility] Test Date: 2024-12-03 Pat Name: CIERRA ROBERTS [facility] Lighting Technician: PATIENCE : 1980 Requested By: Rico Garay Order Number: [id number] Reading MD: Rico Garay Measurements Intervals Fidelity Rate: 91 P: 65 OK: 165 QRS: 69 QRSD: 90 T: 51 QT: 350 QTc: 432 Interpretive Statements SINUS RHYTHM LOW QRS VOLTAGE IN PRECORDIAL LEADS PATTERN CONSISTENT WITH PULMONARY DISEASE Compared to ECG 12/03/2024 00:15:55 No significant changes /store/S0/[id number]/ecg/[id number].pdf
--- NOTE | 2024-12-03 20:09 | PC.NURSE ---
Dr. Flanagan made aware of peaked t waves in two leads, and last renal panel done at 12/03 at 0300 today. New orders for renal and stat ekg, respiratory marisol made aware of new orders, patient sinus rhythm in the 90's and blood pressure within normal limits.
[2024-12-03] MEDS: ENOXAPARIN SOD INJ 60 MG/0.6 ML SYRINGE SC (20:39)
[2024-12-03 20:59] LABS: Anion Gap 7 (7-16); BUN/Creatinine Ratio 18 Ratio (12-20); Blood Urea Nitrogen 18 mg/dL (9-23); Calcium 8.8 mg/dL (8.3-10.6); Carbon Dioxide 28.2 mMol/L (20.0-31.0); Chloride 100 mMol/L (98-107); Estimated Creatinine Clearance 130.3 mL/min (>60); Glucose 190 mg/dL (74-106); Magnesium 2.1 mg/dL (1.6-2.6); Osmolality,Calculated 277 (275-295); Phosphorous 1.5 mg/dL (2.4-5.1); Potassium 4.3 mMol/L (3.4-5.1); Sodium 135 mMol/L (136-145); eGFR > 60 See Note
[2024-12-03 22:02] LABS: Base Excess 4 (-3-3); HCO3 30 mEq/L (20-26); O2 Saturation 94 % (91-98); PCO2 50 mmHg (32.0-48.0); PO2 70 mmHg (83-108); pH, Arterial 7.39 (7.35-7.45)
[2024-12-03 22:04] LABS: Allen Test Not Performed; Puncture Site Arterial Line
[2024-12-03 22:05] LABS: Inspired Oxygen, FIO2 90 %
[2024-12-03] MEDS: NAPH,KPH MBDB 1 PACKET (1.5 GM) 2 PACKET PO (22:05)
[2024-12-04] VITALS (43 sets, daily range): BP systolic 87–161; BP diastolic 43–101; PULSE 86–106; RESP 16–32; TEMP 36.2–37.1; O2SAT 89–100; BMI 53.5
[2024-12-04] MEDS: INSULIN LISPRO (AdmeLOG) 1 UNIT/0.01 ML UNIT SC ×3 (00:20→12:16)
[2024-12-04] MEDS: PROPOFOL 1,000 MG IVPB 1,000 MG/100 ML VIAL 26.127 MG IV (01:15)
[2024-12-04] MEDS: ALBUTEROL/IPRATROPIUM (Duoneb) RT SOL 3 ML NEBU INH ×6 (02:56→22:40)
--- NOTE | 2024-12-04 05:00 | XR_ITS ---
Examination: AP chest single view Technique one AP portable semiupright chest single view Date and time: December 04, 2024 0530 hours Comparison December 02, 2024 INDICATIONS: Shortness of breath history, hypoxic respiratory failure postintubation, pneumonia on earlier chest imaging FINDINGS: Worsening significant bibasilar pneumonia, consider aspiration pneumonia Mild prominence cardiac contour with moderate vascular congestion Endotracheal tube tip 6.9 cm above Grace Orogastric tube in the stomach the tip is below the level of the film IMPRESSION: Worsening bibasilar pneumonia, consider aspiration pneumonia
[2024-12-04] MEDS: PROPOFOL 1,000 MG IVPB 1,000 MG/100 ML VIAL 34.836 MG IV ×2 (05:05→08:51)
[2024-12-04 06:23] LABS: Basophils % (Auto) 0 % (0-2.5); Eosinophils % (Auto) 0 % (0-10); Hematocrit 39.3 % (41.0-53.0); Hemoglobin 12.6 g/dL (13.5-16.0); Immature Granulocytes % (Auto) 1 % (0-0); Immature Granulocytes Auto 0.12 Thou/mm3 (0.00-0.00); Lymphocytes # (Auto) 0.8 Thou/mm3 (1.0-4.8); Lymphocytes % (Auto) 7 % (10-50); Mean Corpuscular HGB Conc 32.1 g/dl (31.0-37.0); Mean Corpuscular Hemoglobin 28.1 pg (25.0-35.0); Mean Corpuscular Volume 88 fL (80-100); Monocytes # (Auto) 0.5 Thou/mm3 (0.0-0.8); Monocytes % (Auto) 5 % (0-12); Neutrophils % (Auto) 87 % (37-80); Nucleated Red Blood Cell % 0 /100 WBC (0); Platelet Count 240 Thou/mm3 (140-440); RDW Standard Deviation 49.6 fL (35.1-43.9); Red Blood Count 4.49 Miln/mm3 (4.50-5.90); White Blood Count 10.4 Thou/mm3 (3.8-10.6)
[2024-12-04] MEDS: FUROSEMIDE INJ 10 MG/ML 4ML VIAL 40 MG IVP ×2 (06:30→17:52)
[2024-12-04 06:53] LABS: Base Excess 4 (-3-3); HCO3 30 mEq/L (20-26); Inspired Oxygen, FIO2 90 %; O2 Saturation 94 % (91-98); PCO2 48 mmHg (32.0-48.0); PO2 70 mmHg (83-108)
[2024-12-04] MEDS: fentaNYL 2,500 MCG/250 ML BAG 2,500 MCG/250 ML BAG 20 MCG IV (07:00)
[2024-12-04 07:12] LABS: Allen Test Not Performed; Puncture Site Site Not Noted
[2024-12-04 07:26] LABS: Alanine Aminotransferase 54 U/L (10-49); Albumin, Serum 4.1 gm/dL (3.5-5.0); Albumin/Globulin Ratio 1.4 (1.2-2.2); Alkaline Phosphatase 83 U/L (46-116); Anion Gap 12 (7-16); Aspartate Amino Transferase 28 U/L (0-34); BUN/Creatinine Ratio 25 Ratio (12-20); Bilirubin,Total 0.3 mg/dL (0.3-1.2); Blood Urea Nitrogen 27 mg/dL (9-23); Calcium 8.8 mg/dL (8.3-10.6); Calcium (Corrected) 8.8 mg/dL (8.5-10.1); Carbon Dioxide 26.3 mMol/L (20.0-31.0); Chloride 98 mMol/L (98-107); Creatinine (Component) 1.1 mg/dL (0.6-1.3); Estimated Creatinine Clearance 118.4 mL/min (>60); Globulin 2.9 gm/dL (2.3-3.5); Glucose 187 mg/dL (74-106); Magnesium 2.1 mg/dL (1.6-2.6); Osmolality,Calculated 282 (275-295); Phosphorous 2.1 mg/dL (2.4-5.1); Potassium 3.7 mMol/L (3.4-5.1); Sodium 136 mMol/L (136-145); eGFR > 60 See Note
[2024-12-04 07:35] LABS: Glucose Estimated Average 169 mg/dL (80-131); Hemoglobin A1C 7.5 % Hgb (4.8-6.0)
[2024-12-04] MEDS: cefTRIAXone/D5w 1gm IV premix 50 ML IV (08:00)
[2024-12-04] MEDS: ENOXAPARIN SOD INJ 60 MG/0.6 ML SYRINGE SC ×2 (08:00→20:45)
[2024-12-04] MEDS: OSELTAMIVIR 75 MG CAPSULE PO ×2 (08:00→20:45)
[2024-12-04] MEDS: PANTOPRAZOLE INJ 40 MG VIAL IVP (08:00)
--- NOTE | 2024-12-04 08:34 | PC.NURSE ---
[facility] downtime occurred on 12/04/24 from 0100 to 0700.
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
--- NOTE | 2024-12-04 09:04 | PD.INTPROC ---
Procedures Procedure Date / Time 12/03/24 1100 Arterial Line Size (Gauge): 14 Intubation Indication(s): acute Resp Failure Informed consent obtained: procedure done urgently Sedative: etomidate Mg given: 20 Sedative #2: other (ativan) Mg Given (sedative #2): 2 Paralytic: rocuronium Mg given: 100 Laryngoscope: fiber optic video scope ET tube size: 7.5 ET tube uncuffed: No Tube secured depth (cm): 24 Tube secured location: teeth Tube placement confirmation: visualized tube passing through cords, equal breath sounds bilaterally, no breath sounds over epigastrium and confirmation by capnometry Patient tolerated procedure: well and no complications EBL(ml): 0 Intubation complications: none
[2024-12-04] MEDS: AZITHROMYCIN INJ 500 MG in SODIUM CHLORIDE 0.9% 250 ML 250 ML 250 MG IV (09:43)
--- NOTE | 2024-12-04 09:55 | XR_ITS ---
Examination: Abdomen sonogram, Limited Date and time of exam: November 26, 2024 1208 hours INDICATIONS: MASH workup Technique: Real-time alaniz scale transabdominal sonographic images of the upper abdomen obtained. Findings: Normal gallbladder Normal common bile duct 0.6 cm Pancreatic head 1.9 cm Hepatomegaly 19.1 cm fatty infiltration no focal liver lesions Normal hepatopedal portal venous flow Patent IVC IMPRESSION: Normal gallbladder Moderate hepatomegaly fatty liver
[2024-12-04] MEDS: NAPH,KPH MBDB 1 PACKET (1.5 GM) PO (10:29)
--- NOTE | 2024-12-04 10:33 | PD.INTPROG ---
Documentation for date of: 12/04/24 Subjective Subjective Interval history: This is a 44-year-old male who presents to the ER for shortness of breath. In the ED a flu swab checked and found to be positive. The patient is lethargic but arousable. He is hypoxic and hypercapnic. He is noncompliant with the BiPAP. He has had episodes of vomiting and removing the BiPAP. He was admitted overnight by the floor team however the ICU was consulted due to decreasing in mentation and worsening of his ABG. The decision was made to intubate the patient. 12/04- no acute overnight events, pt with good UOP and net neg ~1.5, afebrile, Critical Care Note Critical care time (min.): 38 Exam Vital Signs Temp Pulse Resp BP Pulse Ox O2 Del Method O2 Flow Rate 98.8 F 90 28 H 127/73 93 L Mechanical Ventilation 15 12/04/24 07:00 12/04/24 10:00 12/04/24 06:06 12/04/24 10:00 12/04/24 10:00 12/04/24 05:00 12/03/24 09:06 FiO2 60 12/04/24 08:00 Narrative Exam Gen- intubated, sedated with RASS 0, super morbid obesity HEENT- NC/AT, mucosa hydrated, ETT/OGT in place, sclera anicteric, PERRL Chest- LCTAB and diminished 2/2 body habitus, HRRR, no active wheeze, no crackles heard, no increase in WOB Abd- obese, s/nt/bs diminshed Ext- edema b/l LE with some improvement, pulses palp, no clubbing, no mottling, moves all 4 Vent AC VC Drips prop fent Physical Exam Completion Physical Exam Complete?: Yes Objective - Inside Barrel Polisher Labs 12/04/24 04:36 12/04/24 04:36 Labs: Laboratory Results - last 24 hr 12/03/24 12/03/24 12/03/24 12:25 20:18 21:52 WBC RBC Hgb Hct MCV MCH MCHC RDW Std Deviation Plt Count Neut % (Auto) Lymph % (Auto) [place] % (Auto) Eos % (Auto) Baso % (Auto) Neut # (Auto) Lymph # (Auto) [place] # (Auto) Eos # (Auto) Baso # (Auto) Immature Gran # (Auto) Absolute Nucleated RBC Immature Gran % Nucleated RBC % Puncture Site Right Brachial Arterial Line ABG pH 7.29 L D 7.39 D ABG pCO2 69 H D 50 H D ABG pO2 62 L 70 L ABG HCO3 33 H 30 H ABG O2 Saturation 92 94 ABG Base Excess 4 H 4 H FiO2 100 90 Sodium 135 L Potassium 4.3 Chloride 100 Carbon Dioxide 28.2 Anion Gap 7 BUN 18 Creatinine 1.0 Estim Creat Clear Calc 130.3 eGFR > 60 BUN/Creatinine Ratio [address] Glu mg/dL Hemoglobin A1c Calculated Osmolality 277 Calcium 8.8 Corrected Calcium Phosphorus 1.5 L Magnesium 2.1 Total Bilirubin AST ALT Alkaline Phosphatase Total Protein Albumin Globulin Albumin/Globulin Ratio 12/04/24 12/04/24 04:36 04:59 WBC 10.4 RBC 4.49 L Hgb 12.6 L Hct 39.3 L MCV 88 MCH 28.1 MCHC 32.1 RDW Std Deviation 49.6 H Plt Count 240 Neut % (Auto) 87 H Lymph % (Auto) 7 L [place] % (Auto) 5 Eos % (Auto) 0 Baso % (Auto) 0 Neut # (Auto) 9.0 H Lymph # (Auto) 0.8 L [place] # (Auto) 0.5 Eos # (Auto) 0.0 Baso # (Auto) 0.0 Immature Gran # (Auto) 0.12 H Absolute Nucleated RBC 0.00 Immature Gran % 1 H Nucleated RBC % 0 Puncture Site Site Not Noted ABG pH 7.40 ABG pCO2 48 ABG pO2 70 L ABG HCO3 30 H ABG O2 Saturation 94 ABG Base Excess 4 H FiO2 90 Sodium 136 Potassium 3.7 D Chloride 98 Carbon Dioxide 26.3 Anion Gap 12 BUN 27 H Creatinine 1.1 Estim Creat Clear Calc 118.4 eGFR > 60 BUN/Creatinine Ratio 25 H Glucose [address] Glu mg/dL 169 H Hemoglobin A1c 7.5 H Calculated Osmolality 282 Calcium 8.8 Corrected Calcium 8.8 Phosphorus 2.1 L Magnesium 2.1 Total Bilirubin 0.3 AST 28 ALT 54 H Alkaline Phosphatase 83 D Total Protein 7.0 Albumin 4.1 Globulin 2.9 Albumin/Globulin Ratio 1.4 Assessment & Plan Additional Assessment Additional Assessment: In summary is a 44-year-old male admitted to the ICU with 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 Encephalopathy likely secondary to hypoxia and hypercapnia- once pt is intubated will need meds for sedation to maintain RASS -1 to 0 CV CHF- started on diuresis, last echo showed EF of 65-70% , good UOP - cont current lasix Dyslipidemia- on gemfibrozil Resp Acute hypoxic hypercapnic respiratory failure-currently intubated and on mechanical ventilation, follow-up on ABG and chest x-ray, wean as able - improvement in sats and PCO2 levels on follow up ABG - increased FiO2 needs likely due to body habitus and compressive atelectasis causing an increase in shunt - will work on improving VQ mismatch PNA- sputum cx pending, on ceftri/azithro Renal HypoPhos- replete PO GI GI prophylaxis- PPI Super morbid obesity Transaminitis- mild elevation of ALT - check abd US - ? LAND v 2/2 meds Endo Hyperglycemia- SSI - hold metformin while in house Heme DVT prophylaxis- lovenox 60mg q12 Anemia- no active bleed, minimal drop from yesterday - stable ID PNA- on abx case d/w ICU team labs, imaging, records reviewed ~38ccmin required for eval, exam, review, intervention, discussion and formulation of POC for this critically ill pt at high risk for further and ongoing Provider Notation Provider Notation: Although this document has been carefully reviewed, there may still be some phonetic and other typographical errors. These errors are purely grammatical due to imperfections in the software program and should not be construed in any way to compromise the substance of the patient's medical care during this visit. Thank you for the opportunity and privilege in assisting you with this patient's care and management.
[2024-12-04] MEDS: POTASSIUM PHOS 15 MMOL in SODIUM CHLORIDE 0.9% 250 ML 245 ML 62.5 MMOL IV (10:52)
[2024-12-04] MEDS: VANCOMYCIN/D5W 1,250 MG IVPB 250 ML 120 MG IV (12:01)
--- NOTE | 2024-12-04 18:02 | PD.RESEVENT ---
Documentation for date of: 12/04/24 Event Note Event Note: The hospitalist team received an ICU downgrade, 44-year-old male, Blanca Bautista, originally presented with acute hypercapnic respiratory failure and was started on BiPAP but he was upgraded to ICU as he was having emesis and required intubation. Subsequently extubated. Currently on nasal cannula and CPAP at night. Following command. Continued on AZITHROMYCIN, CEFTRIAXONE, and STEROIDS for COPD exacerbation. Blood culture grew GPC. Patient stable to downgrade to floors. The hospitalist team will assume care of this patient on 12/05/2024 in the a.m. Patient case was discussed with attending, Arias Mahmood MD, and senior residents Dr. Moreno and Dr. Russo. Brianne Preciado DO PGYI
[2024-12-04] MEDS: OLANZapine 5 MG TABLET 10 MG PO (20:45)
[2024-12-05] VITALS (23 sets, daily range): BP systolic 100–155; BP diastolic 67–95; PULSE 67–96; RESP 20–33; TEMP 36.3–37.2; O2SAT 91–98; BMI 53.5
[2024-12-05] MEDS: ALBUTEROL/IPRATROPIUM (Duoneb) RT SOL 3 ML NEBU INH ×6 (03:00→22:58)
[2024-12-05] MEDS: FUROSEMIDE INJ 10 MG/ML 4ML VIAL 40 MG IVP ×2 (05:15→18:38)
[2024-12-05 06:23] LABS: Basophils % (Auto) 0 % (0-2.5); Eosinophils % (Auto) 0 % (0-10); Hematocrit 42.5 % (41.0-53.0); Hemoglobin 13.4 g/dL (13.5-16.0); Immature Granulocytes % (Auto) 1 % (0-0); Immature Granulocytes Auto 0.09 Thou/mm3 (0.00-0.00); Lymphocytes # (Auto) 1.6 Thou/mm3 (1.0-4.8); Lymphocytes % (Auto) 16 % (10-50); Mean Corpuscular HGB Conc 31.5 g/dl (31.0-37.0); Mean Corpuscular Hemoglobin 27.3 pg (25.0-35.0); Mean Corpuscular Volume 87 fL (80-100); Monocytes # (Auto) 0.7 Thou/mm3 (0.0-0.8); Monocytes % (Auto) 7 % (0-12); Neutrophils # (Auto) 7.6 Thou/mm3 (1.8-7.7); Neutrophils % (Auto) 76 % (37-80); Nucleated Red Blood Cell % 0 /100 WBC (0); Platelet Count 233 Thou/mm3 (140-440); RDW Standard Deviation 50.1 fL (35.1-43.9); Red Blood Count 4.91 Miln/mm3 (4.50-5.90); White Blood Count 10.1 Thou/mm3 (3.8-10.6)
[2024-12-05 06:48] LABS: Alanine Aminotransferase 46 U/L (10-49); Albumin/Globulin Ratio 1.3 (1.2-2.2); Alkaline Phosphatase 76 U/L (46-116); Anion Gap 9 (7-16); Aspartate Amino Transferase 26 U/L (0-34); BUN/Creatinine Ratio 28 Ratio (12-20); Bilirubin,Total 0.3 mg/dL (0.3-1.2); Blood Urea Nitrogen 25 mg/dL (9-23); Carbon Dioxide 30.4 mMol/L (20.0-31.0); Chloride 103 mMol/L (98-107); Creatinine (Component) 0.9 mg/dL (0.6-1.3); Estimated Creatinine Clearance 150.6 mL/min (>60); Globulin 3.1 gm/dL (2.3-3.5); Glucose 119 mg/dL (74-106); Magnesium 2.2 mg/dL (1.6-2.6); Osmolality,Calculated 288 (275-295); Phosphorous 5.2 mg/dL (2.4-5.1); Potassium 3.6 mMol/L (3.4-5.1); Sodium 142 mMol/L (136-145); Total Protein 7.1 gm/dL (5.7-8.2); eGFR > 60 See Note
[2024-12-05 07:05] LABS: Cardiac Risk Estimate 5.1 RATIO (4.0-6.7); Cholesterol 204 mg/dL (132-200); HDL Cholesterol 40 mg/dL (40-60); LDL Cholesterol,Calculated 93 mg/dL (0-130); Triglycerides 353 mg/dL (30-150)
[2024-12-05] MEDS: AZITHROMYCIN INJ 500 MG in SODIUM CHLORIDE 0.9% 250 ML 250 ML 250 MG IV (08:27)
[2024-12-05] MEDS: ENOXAPARIN SOD INJ 60 MG/0.6 ML SYRINGE SC ×2 (08:28→20:46)
[2024-12-05] MEDS: OSELTAMIVIR 75 MG CAPSULE PO ×2 (08:28→20:48)
[2024-12-05] MEDS: cefTRIAXone/D5w 1gm IV premix 50 ML IV ×2 (08:28→18:38)
[2024-12-05] MEDS: PANTOPRAZOLE INJ 40 MG VIAL IVP (08:28)
--- NOTE | 2024-12-05 09:09 | ESPR_ITS ---
Documentation for date of: 12/05/24 Subjective Subjective Interval history: No acute overnight events. On nasal cannula, breathing comfortably, satting well. Continued on BiPAP at night. Denies new symptoms or worsening of symptoms. Denies fever, chills, headaches, chest pain, sob, cough, GI or urinary symptoms. Exam Vital Signs Temp Pulse Resp BP Pulse Ox O2 Del Method O2 Flow Rate 97.8 F 81 26 H 142/83 H 97 Oxy Mask 10 12/05/24 04:00 12/05/24 06:22 12/05/24 06:22 12/05/24 05:15 12/05/24 06:22 12/05/24 04:00 12/05/24 04:00 FiO2 2 12/05/24 06:22 Narrative Exam GENERAL * Obese adult male, no apparent distress, on nasal cannula. HEENT * NCAT.?ELEONORA. Oral mucosa is moist. Patent Nares NECK * Supple, nontender, no thyromegaly, no meningismus, no JVD, no step offs CHEST * RRR, no m/g/r * CTAB, no w/r/r. Symmetrical chest rise. No intercostal subcostal retraction * Atraumatic, nontender, no crepitus, symmetrical expansion. ABDOMEN * Soft, obese abdomen, nontender. No guarding/rebound tenderness/masses. * Bowel sounds presents EXTREMITIES * Nontender, no cyanosis, no edema * No edema/cyanosis.? SKIN * Warm and dry, no jaundice/rashes. NEUROMUSCULAR * No lumbar or midline, no CVA, no paraspinal muscle spasm or tenderness. * Moves all 4 extremities well, with full ROM and good CSM. * LOVING x4, CN II-XII grossly intact. * No focal neurologic deficits. PSYCHIATRY * Normal mood and affect, cooperative, no SI or HI or hallucinations. Physical Exam General: 45-year-old male, morbidly obese, on sedation, intubated HEENT: Normocephalic, atraumatic, mucous membranes moist, pupils constricted, bilaterally reactive. Heart: Regular rate and rhythm, no murmurs. Lungs: Clear to auscultation with no wheezing or crackles. Decreased breath sounds due to body habitus. Abdomen: Soft, nondistended, nontender, positive bowel sounds. Morbidly obese. Neurologic: GCS 11T, following commands Extremities: 2+ bilateral lower extremity edema, scratches, skin breaks noted bilaterally legs. Objective Labs 12/05/24 04:43 12/05/24 04:43 Labs: Laboratory Results - last 24 hr 12/05/24 04:43 WBC 10.1 RBC 4.91 Hgb 13.4 L Hct 42.5 MCV 87 MCH 27.3 MCHC 31.5 RDW Std Deviation 50.1 H Plt Count 233 Neut % (Auto) 76 Lymph % (Auto) 16 Person % (Auto) 7 Eos % (Auto) 0 Baso % (Auto) 0 Neut # (Auto) 7.6 Lymph # (Auto) 1.6 Person # (Auto) 0.7 Eos # (Auto) 0.0 Baso # (Auto) 0.0 Immature Gran # (Auto) 0.09 H Absolute Nucleated RBC 0.00 Immature Gran % 1 H Nucleated RBC % 0 Sodium 142 Potassium 3.6 Chloride 103 Carbon Dioxide 30.4 Anion Gap 9 BUN 25 H Creatinine 0.9 Estim Creat Clear Calc 150.6 eGFR > 60 BUN/Creatinine Ratio 28 H Glucose 119 H D Calculated Osmolality 288 Calcium 9.0 Corrected Calcium 9.0 Phosphorus 5.2 H Magnesium 2.2 Total Bilirubin 0.3 AST 26 ALT 46 Alkaline Phosphatase 76 Total Protein 7.1 Albumin 4.0 Globulin 3.1 Albumin/Globulin Ratio 1.3 Triglycerides 353 H Cholesterol 204 H LDL Cholesterol, Calc 93 HDL Cholesterol 40 Cholesterol/HDL Ratio 5.1 ABG Interpretation ABG results: 12/02/24 12/02/24 12/03/24 22:20 22:35 03:30 ABG pH 7.28 L ABG pCO2 68 H ABG pO2 74 L ABG HCO3 32 H ABG O2 Saturation 93 ABG Base Excess 3 VBG pH 7.27 L 7.27 L VBG pCO2 67 H 70 H VBG pO2 65 H 86 H D VBG Base Excess 2 3 12/03/24 12/03/24 12/03/24 09:55 12:25 21:52 ABG pH 7.17 L* D 7.29 L D 7.39 D ABG pCO2 94 H* D 69 H D 50 H D ABG pO2 81 L 62 L 70 L ABG HCO3 34 H 33 H 30 H ABG O2 Saturation 94 92 94 ABG Base Excess 2 4 H 4 H VBG pH VBG pCO2 VBG pO2 VBG Base Excess 01/28/25 04:59 ABG pH 7.40 ABG pCO2 48 ABG pO2 70 L ABG HCO3 30 H ABG O2 Saturation 94 ABG Base Excess 4 H VBG pH VBG pCO2 VBG pO2 VBG Base Excess Quality Measures Quality Measures VTE prophylaxis Assessment & Plan Assessment Current Active Medications: Generic Name Dose Route Start Last Admin Trade Name Freq PRN Reason Stop Dose Admin Acetaminophen 650 mg 12/03/24 02:19 Acetaminophen Supp 650 Mg Supp NJ 01/02/25 02:18 Q6HR PRN Fever > 100.3 Albuterol/Ipratropium 3 ml 12/03/24 11:00 12/05/24 06:19 Albuterol/Ipratropium (Duoneb) Rt Katarina 3 Ml Nebu INH 01/02/25 10:59 3 ml Q4HRRT JEANNE Administration Dextrose 25 ml 12/03/24 15:40 Dextrose 50%-Water Inj 50 Ml Syringe IV 01/02/25 15:39 Q15MIN PRN BG 50-70 responsive npo pt Dextrose 50 ml 12/03/24 15:40 Dextrose 50%-Water Inj 50 Ml Syringe IV 01/02/25 15:39 Q15MIN PRN BG <50 OR BG <70 & pt unresponsive Enoxaparin Sodium 60 mg 12/03/24 21:00 12/05/24 08:28 Enoxaparin Sod Inj 60 Mg/0.6 Ml Syringe SC 12/17/24 20:59 60 mg BID JEANNE Administration Furosemide 40 mg 12/03/24 18:00 12/05/24 05:15 Furosemide Inj 10 Mg/Ml 4ml Vial IVP 01/02/25 17:59 40 mg BIDD JEANNE Administration Glucagon 1 mg 12/03/24 15:40 Glucagon Inj 1 Mg Vial IM Q15MIN PRN BG <70, and no IV access Ceftriaxone Sodium/Dextrose 50 mls @ 100 mls/hr 12/03/24 08:29 12/05/24 08:28 Rocephin/D5w 1gm Iv Premix IV 12/10/24 08:28 100 mls/hr QDAY JEANNE Administration Azithromycin 500 mg/ Sodium 250 mls @ 250 mls/hr 12/03/24 08:29 12/05/24 08:27 Chloride IV 12/10/24 08:28 250 mls/hr QDAY JEANNE Administration Vancomycin HCl/Dextrose 250 mls @ 120 mls/hr 12/05/24 09:00 Vancomycin/D5w 1,250 Mg Ivpb IV 12/12/24 08:59 TID JEANNE Protocol Insulin Human Lispro 0 unit 12/05/24 07:30 12/05/24 08:29 Insulin Lispro (Admelog) 1 Unit/0.01 Ml Unit SC 01/04/25 07:29 Not Given ACHS JEANNE Protocol Magnesium Hydroxide 30 ml 12/03/24 02:19 Milk Of Magnesia Susp 30 Ml Udc PO 01/02/25 02:18 QDAY PRN CONSTIPATION Protocol Methylprednisolone Sodium Succinate 60 mg 12/05/24 09:00 12/05/24 08:28 Methylprednisolone Sod Succ 40 Mg Vial IVP 12/12/24 08:59 60 mg QDAY JEANNE Administration Olanzapine 10 mg 12/04/24 21:00 12/04/24 20:45 Olanzapine 5 Mg Tablet PO 01/03/25 20:59 10 mg HS JEANNE Administration Ondansetron HCl 4 mg 12/03/24 02:19 12/03/24 07:54 Ondansetron Inj 2 Mg/Ml Inj 2 Ml IV 01/02/25 02:18 4 mg Q6H PRN Administration NAUSEA OR VOMITING Protocol Oseltamivir Phosphate 75 mg 12/03/24 09:00 12/05/24 08:28 Oseltamivir 75 Mg Capsule PO 12/10/24 08:59 75 mg BID JEANNE Administration Pantoprazole Sodium 40 mg 12/03/24 09:00 12/05/24 08:28 Pantoprazole Inj 40 Mg Vial IVP 01/02/25 08:59 40 mg QDAY JEANNE Administration Pharmacy Consult 1 each 12/05/24 07:45 Vancomycin Pharmacy To Dose 1 Each Each IV 01/04/25 07:44 QDAY PRN CONSULT Plan In summary: 44-year-old male with PMHx of obesity, BHAVESH on 2 L home oxygen and BiPAP, HTN, T2DM, and schizophrenia, who presented with SOB, intubated in the ICU after failing BiPAP. Subsequently extubated on 12/03 and downgraded to floors. Currently treating influenza B and GPC bacteria, on TAMIFLU and VANCOMYCIN. Continued on nasal cannula and BiPAP at night. Afebrile, no leukocytosis. Acute on chronic hypoxemic respiratory failure (improved) COPD exacerbation CHF exacerbation (see below) Influenza B + Superimposed CAP GPC bacteremia Chronic respiratory failure secondary to BHAVESH, and possible OHS, on home 2 L oxygen and BiPAP at night. Presenting with worsening shortness of breath, admitted to ICU for intubation. Extubated on 12/03 successfully. Positive influenza B on admission, blood culture grew GPC. CXR showed bibasilar pneumonia with possible aspiration. Continued on TAMIFLU and VANCOMYCIN, 2 L NC and BiPAP at night. MRSA negative. ET secretion from 12/03 no growth. Afebrile, no leukocytosis. Currently on 2 L NC, has baseline, satting well. ? Continue TAMIFLU 75 BID (12/03 to present) ? Continue CEFTRIAXONE 2 mg daily (12/03 to present) ? Continue AZITHROMYCIN (12/03 to present) ? Continue VANCOMYCIN (12/04 to present) ? Continue METHYLPREDNISOLONE 60 mg daily (12/05 to present) ? Continue DuoNebs ? Continue BiPAP HS PRN ? Continue chest physiotherapy ? Pending final culture: Blood and sputum CHF exacerbation HFpEF EF 65?70 from 09/2024 HTN On home LASIX 40 daily. No signs of fluid overload, no edema, clear lung sounds. Dry weight around 146 kg, currently 155. Normal kidney function. Will continue with diuresis. BP 142/83 ? Continue home LASIX 40 mg IV BID ? HOLDING CARVEDILOL 6.25 mg BID in settings of CHF exacerbation ? Strict ALEKSANDRA's ? Fluid restriction 1500 cc daily ? Daily weight T2DM A1c 7.4. GLUCOSE 119. Holding home meds. ? Continue INSULIN sliding scale ? 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 Improved with management. Ultrasound showed normal gallbladder, moderate bilateral likely fatty liver. ? Daily CMP Schizophrenia Home meds: OLANZAPINE 10 mg HS, HALOPERIDOL 10 mg BID, OMEPRAZOLE 2 mg BID. No signs of hallucination or risky behavior. ? Continue ZYPREXA 10 mg HS Health maintenance Diet: CHO consistent GI prophylaxis: PROTONIX DVT prophylaxis: LOVENOX Antibiotics: VANCOMYCIN, CEFTRIAXONE, TAMIFLU CODE STATUS: Full code Disposition: Pending final blood culture. Patient case was discussed with attending, Arias Mahmood MD and senior residents Dr. Alberts and Dr. Russo. Brianne Preciado, DO PGYI Senior Resident Attestation: The patient is a 44-year-old male with significant past medical history of morbid obesity, BHAVESH on 2 L home oxygen and BiPAP, hypertension, type 2 diabetes mellitus and signs of hernia presented to ED with chief complaint of SOB was initially intubated for airway protection secondary to vomiting was subsequently extubated on 12/03/2024 and downgraded to telemetry unit. We will continue to treat the patient with Tamiflu 75 Mg twice daily, ceftriaxone, azithromycin and vancomycin for influenza B pneumonia and superimposed community-acquired pneumonia along with GPC bacteremia. We will await blood culture final results. Continue the patient on Lasix 40 Mg IV twice daily, fluid restriction with 1500 cc daily along with strict ins and outs. Will continue with home olanzapine 10 mg at bedtime, haloperidol 10 mg twice daily and continue to monitor closely. Anticipate discharge in next 24 to 48 hours. I discussed with and supervised the digital marketing intern physician involved in the care of this patient. I personally saw and examined the patient and discussed the assessment and plan with the entire medicine team, including my attending. I agree with the assessment and plan as documented above. Jose Roberto Russo MD PGY2 Internal Medicine Attending Provider Attestation/Addendum I reviewed labs, imaging, EKG, home medications and prior available records. Face to face evaluation was performed by me. I have personally examined the patient and discussed assessment and plan with the IM team. I reviewed the resident note and agree with the plan with exceptions as below. Acute hypoxic respiratory failure Influenza B Superimposed community-acquired pneumonia, bibasilar CHF exacerbation HFpEF EF 65 to 70% Morbid obesity Primary hypertension Obstructive sleep apnea Uncontrolled diabetes mellitus with hyperglycemia, type II He is extubated and switched to BiPAP Downgraded from ICU Continue vancomycin, ceftriaxone, add azithromycin Follow-up cultures Continue Lasix 40 mg IV twice daily Continue Tamiflu Patient has a home CPAP machine, ensure compliance Outpatient weight management Started sliding scale insulin. Monitor fingersticks
[2024-12-05] MEDS: VANCOMYCIN/D5W 1,250 MG IVPB 250 ML 120 MG IV ×3 (09:53→22:13)
--- NOTE | 2024-12-05 10:32 | PC.CC ---
Update: Patient has been downgraded from ICU.
--- NOTE | 2024-12-05 10:43 | CHAP ---
Patient was visited by a Spiritual Care volunteer on 12/05/2024 between 0900 and 1017 and received comfort, encouragement and/or prayer.
[2024-12-05] MEDS: INSULIN LISPRO (AdmeLOG) 1 UNIT/0.01 ML UNIT SC ×2 (12:08→20:48)
--- NOTE | 2024-12-05 12:10 | PC.SS ---
Addendum entered by Leigh Juarez 12/05/24 15:39: Update: SS phoned [facility] [place] to verify any respiratory needs. Patient has 02 and a non invasive vent. [facility] [place] states patient has been using device as it's being monitored Original Note: Patient is alert/oriented. Patient confirmed all demographic information. Patient is currently in ICU but is a downgrade. Patient verbalized he is from home and resides with his mother, Lakisha and sister. Patient confirmed he is independent with ADL's. Patient verbalized his alt medical decision maker is his mother, Lakisha. Patient is currently on 02 and confirmed he is on 02 in home setting ([facility]). Patient has hx: diabetes. He uses a glucometer machine at home. No insulin. He does not use a nebulizer at home. No income. Disability case is pending per patient. Patient confirmed family provides transportation to appointments. Family will transport upon discharge. PCP: Dr. Rod Hernandez. Patient is not participating in dialysis treatment. Patient does not have any specialty physicians. Pharmacy: [facility]. D/c plan is to return home.
--- NOTE | 2024-12-05 14:24 | PC.SS ---
Patient needs non invasive ventilator The patient needs a mechanical ventilator due to chronic respiratory failure due to severe COPD. The patient needs to keep tidal volume and prevent CO2 retention. Ventilator is required to improve pulmonary status. Without this respiratory support, in home could lead to serious harm or . BiPAP therapy failed.
--- NOTE | 2024-12-05 14:36 | PD.RESDS ---
Planned Discharge Date 12/05/24 DS: Providers Provider Date of admission: 12/03/24 02:19 Primary care physician: Rod Hernandez PA-C Admitting Provider: Kt Canas MD Attending Provider on Admission: Myra Walsh MD Consults: 12/03/24 22:30 Referral Thanh Routine Comment: 12/05/24 10:09 Referral Physical Therapy Urgent Comment: Physician Instructions: Attending Provider on DC: Kt Canas MD Discharging Provider: Kt Canas MD Hospital Course Hospital Course Hospital course: No acute overnight events. On nasal cannula, breathing comfortably, satting well. Continued on BiPAP at night. Denies new symptoms or worsening of symptoms. Denies fever, chills, headaches, chest pain, sob, cough, GI or urinary symptoms. Time Spent with Patient Time attestation: Total time spent providing and/or coordinating discharge services: Quality: Stroke Pt Provided Written Stroke Discharge Instructions: No Exam Vital Signs Temp Pulse Resp BP Pulse Ox O2 Del Method O2 Flow Rate 99.0 F 67 23 H 155/95 H 97 Nasal Cannula 2 12/05/24 12:00 12/05/24 14:14 12/05/24 14:14 12/05/24 12:00 12/05/24 14:14 12/05/24 12:00 12/05/24 14:14 FiO2 2 12/05/24 14:14 Discharge Plan Plan Disposition Comment: Med/tele Prescriptions/Referrals Prescriptions/Med Rec: No Action haloperidol 10 mg tablet 10 mg PO BID Patient Comments: TAKE 1 TABLET BY MOUTH TWICE A DAY metformin 500 mg tablet 500 mg PO BID Patient Comments: TAKE 1 TABLET BY MOUTH TWICE A DAY WITH FOOD fluticasone propionate 44 mcg/actuation HFA aerosol inhaler 44 mcg INHALATION PRN PRN (Reason: sob) aripiprazole 2 mg tablet 2 mg PO BID Patient Comments: TAKE 1 TABLET BY MOUTH EVERY DAY FOR 7 DAYS THEN INCREASE TO 2 TABLETS DAILY cholecalciferol (vitamin D3) 50 mcg (2,000 unit) capsule 50 mcg DAILY Patient Comments: TAKE 1 TABLET ORALLY EVERY DAY olanzapine 10 mg tablet 10 mg PO HS Patient Comments: TAKE 1 TABLET BY MOUTH EVERY DAY IN THE EVENING carvedilol 6.25 mg tablet 6.25 mg PO BID gemfibrozil 600 mg tablet 600 mg PO BID Patient Comments: TAKE 1 TABLET BY MOUTH TWICE A DAY 30 MINUTES BEFORE MORNING AND EVENING MEAL loratadine 10 mg tablet 10 mg PO QDAY Patient Comments: TAKE 1 TABLET BY MOUTH EVERY DAY Rybelsus 3 mg tablet 3 mg PO QDAY 30 Days Qty: 30 1RF (DME) FreeStyle Caroline 3 Sensor Device See Rx Instructions .Route Qty: 1 0RF Rx Instructions: As directed Referrals: Rod Hernandez PA-C [Primary Care Provider] - Patient/Caregiver Discharge Instructions Print Language: Kuwaiti
--- NOTE | 2024-12-05 16:15 | PC.SS ---
BOARD OF EDUCATION SECRETARY informed by PT, recommendation for home health PT services.
[2024-12-05] MEDS: OLANZapine 5 MG TABLET 10 MG PO (20:47)
[2024-12-05 21:36] LABS: Vancomycin,Trough 5.4 mcg/mL (5.0-10.0)
[2024-12-06] VITALS (13 sets, daily range): BP systolic 124–146; BP diastolic 66–93; PULSE 76–102; RESP 17–26; TEMP 36.1–36.6; O2SAT 88–96
[2024-12-06] MEDS: ALBUTEROL/IPRATROPIUM (Duoneb) RT SOL 3 ML NEBU INH ×5 (02:28→18:33)
[2024-12-06] MEDS: FUROSEMIDE INJ 10 MG/ML 4ML VIAL 40 MG IVP ×2 (05:27→17:20)
[2024-12-06] MEDS: VANCOMYCIN/D5W 1,250 MG IVPB 250 ML 120 MG IV (05:27)
[2024-12-06 06:46] LABS: Alanine Aminotransferase 53 U/L (10-49); Albumin, Serum 4.3 gm/dL (3.5-5.0); Albumin/Globulin Ratio 1.2 (1.2-2.2); Alkaline Phosphatase 89 U/L (46-116); Anion Gap 7 (7-16); Aspartate Amino Transferase 26 U/L (0-34); BUN/Creatinine Ratio 30 Ratio (12-20); Bilirubin,Total 0.4 mg/dL (0.3-1.2); Blood Urea Nitrogen 27 mg/dL (9-23); Calcium 9.3 mg/dL (8.3-10.6); Calcium (Corrected) 9.3 mg/dL (8.5-10.1); Carbon Dioxide 30.1 mMol/L (20.0-31.0); Chloride 99 mMol/L (98-107); Creatinine (Component) 0.9 mg/dL (0.6-1.3); Estimated Creatinine Clearance 150.5 mL/min (>60); Globulin 3.6 gm/dL (2.3-3.5); Glucose 122 mg/dL (74-106); Magnesium 2.1 mg/dL (1.6-2.6); Osmolality,Calculated 278 (275-295); Phosphorous 4.6 mg/dL (2.4-5.1); Potassium 3.4 mMol/L (3.4-5.1); Sodium 136 mMol/L (136-145); Total Protein 7.9 gm/dL (5.7-8.2); eGFR > 60 See Note
[2024-12-06] MEDS: INSULIN LISPRO (AdmeLOG) 1 UNIT/0.01 ML UNIT SC ×3 (07:22→17:20)
[2024-12-06 09:31] LABS: Basophils # (Auto) 0.1 Thou/mm3 (0.0-0.2); Basophils % (Auto) 0 % (0-2.5); Eosinophils # (Auto) 0.1 Thou/mm3 (0.0-0.5); Eosinophils % (Auto) 1 % (0-10); Hematocrit 46.5 % (41.0-53.0); Hemoglobin 14.7 g/dL (13.5-16.0); Immature Granulocytes % (Auto) 1 % (0-0); Immature Granulocytes Auto 0.06 Thou/mm3 (0.00-0.00); Lymphocytes # (Auto) 1.6 Thou/mm3 (1.0-4.8); Lymphocytes % (Auto) 14 % (10-50); Mean Corpuscular HGB Conc 31.6 g/dl (31.0-37.0); Mean Corpuscular Hemoglobin 27.9 pg (25.0-35.0); Mean Corpuscular Volume 88 fL (80-100); Monocytes # (Auto) 0.8 Thou/mm3 (0.0-0.8); Monocytes % (Auto) 7 % (0-12); Neutrophils # (Auto) 8.5 Thou/mm3 (1.8-7.7); Neutrophils % (Auto) 77 % (37-80); Nucleated Red Blood Cell % 0 /100 WBC (0); Platelet Count 244 Thou/mm3 (140-440); RDW Standard Deviation 51.6 fL (35.1-43.9); Red Blood Count 5.27 Miln/mm3 (4.50-5.90); White Blood Count 11.1 Thou/mm3 (3.8-10.6)
[2024-12-06] MEDS: cefTRIAXone/D5w 1gm IV premix 50 ML IV (09:51)
[2024-12-06] MEDS: AZITHROMYCIN INJ 500 MG in SODIUM CHLORIDE 0.9% 250 ML 250 ML 250 MG IV (09:51)
[2024-12-06] MEDS: ENOXAPARIN SOD INJ 60 MG/0.6 ML SYRINGE SC (09:52)
[2024-12-06] MEDS: OSELTAMIVIR 75 MG CAPSULE PO (09:52)
[2024-12-06] MEDS: POTASSIUM CHLORIDE 20 mEq TABCR 40 MEQ PO (09:52)
[2024-12-06] MEDS: PANTOPRAZOLE INJ 40 MG VIAL IVP (09:52)
[2024-12-06 12:44] LABS: Base Excess 7 (-3-3); HCO3 32 mEq/L (20-26); Inspired Oxygen, FIO2 21 %; O2 Saturation 91 % (91-98); PCO2 49 mmHg (32.0-48.0); PO2 62 mmHg (83-108); pH, Arterial 7.43 (7.35-7.45)
[2024-12-06 12:48] LABS: Allen Test Not Performed; Puncture Site Right Radial
[2024-12-06 12:51] LABS: Vancomycin,Trough 15.4 mcg/mL (5.0-10.0)
--- NOTE | 2024-12-06 16:36 | ESDS_ITS ---
Planned Discharge Date 12/06/24 DS: Providers Provider Date of admission: 12/03/24 02:19 Primary care physician: Rod Hernandez PA-C Admitting Provider: Kt Canas MD Attending Provider on Admission: Myra Walsh MD Consults: 12/03/24 22:30 Referral Thanh Routine Comment: 12/05/24 10:09 Referral Physical Therapy Urgent Comment: Physician Instructions: Attending Provider on DC: Jose Roberto Russo MD Discharging Provider: Jose Roberto Russo MD DS: Diagnosis Problem List Completed Was Problem List Reviewed/Reconciled?: Yes Hospital Course Hospital Course Hospital course: The patient is a 44-year-old male with significant past medical history of obesity, hypertension, type 2 diabetes mellitus, signs of hernia, BHAVESH on 2 L home oxygen and BiPAP presented to ED with chief complaint of SOB, was started on BiPAP, and as he started vomiting, he was intubated for securing airway. After extubation, patient was downgraded to telemetry unit, and further treated with IV antibiotics and Tamiflu. One of the 2 bottles grew staph hemolyticus likely contamination. Repeat blood culture was negative for 24 hours. This morning, the patient was clinically stable to be discharged home. His discharge plan was discussed with him, and he agreed with the plans. He was discharged home. Problems: Acute on chronic hypoxemic respiratory failure (improved) COPD exacerbation CHF exacerbation (see below) Influenza B + Superimposed CAP GPC bacteremia, likely contamination CHF exacerbation HFpEF EF 65?70 from 09/2024 HTN T2DM Mild transaminitis (resolved) LAND Schizophrenia Plans: Please follow-up with your PCP within 1 week of discharge. You have been started on amoxicillin 1 g 3 times daily for 4 more days Continue with oseltamivir 75 Mg twice daily for 2 more days Continue with all other medicines as prescribed before -Recommended to return back to emergency department if your symptoms persists or worsens The patient's discharge plan was discussed with my attending physician MD Jose Roberto Bryan MD, PGY2 Time Spent with Patient Time attestation: Total time spent providing and/or coordinating discharge services: Greater than 35 minutes Quality: Stroke Pt Provided Written Stroke Discharge Instructions: No Exam Vital Signs Temp Pulse Resp BP Pulse Ox O2 Del Method O2 Flow Rate 97.8 F 95 20 131/93 H 96 Nasal Cannula 2 12/06/24 12:00 12/06/24 16:05 12/06/24 16:05 12/06/24 12:00 12/06/24 16:05 12/06/24 12:00 12/06/24 16:05 FiO2 40 12/05/24 22:10 Narrative Exam GENERAL * Obese adult male, no apparent distress HEENT * NCAT.?ELEONORA. Oral mucosa is moist. Patent Nares NECK * Supple, nontender, no thyromegaly, no meningismus, no JVD, no step offs CHEST * RRR, no m/g/r * CTAB, no w/r/r. Symmetrical chest rise. No intercostal subcostal retraction * Atraumatic, nontender, no crepitus, symmetrical expansion. ABDOMEN * Soft, obese abdomen, nontender. No guarding/rebound tenderness/masses. * Bowel sounds presents EXTREMITIES * Nontender, no cyanosis, no edema * No edema/cyanosis.? SKIN * Warm and dry, no jaundice/rashes. NEUROMUSCULAR * No lumbar or midline, no CVA, no paraspinal muscle spasm or tenderness. * Moves all 4 extremities well, with full ROM and good CSM. * LOVING x4, CN II-XII grossly intact. * No focal neurologic deficits. PSYCHIATRY * Normal mood and affect, cooperative, no SI or HI or hallucinations. Discharge Plan Plan Patient Disposition: HOME (Self Care) Disposition Comment: Med/tele Patient condition on transfer: Stable Care Plan Goals: Please follow-up with your PCP within 1 week of discharge. You have been started on amoxicillin 1 g 3 times daily for 4 more days Continue with oseltamivir 75 Mg twice daily for 2 more days Continue with all other medicines as prescribed before -Recommended to return back to emergency department if your symptoms persists or worsens Prescriptions/Referrals Prescriptions/Med Rec: Continued haloperidol 10 mg tablet 10 mg PO BID Patient Comments: TAKE 1 TABLET BY MOUTH TWICE A DAY metformin 500 mg tablet 500 mg PO BID Patient Comments: TAKE 1 TABLET BY MOUTH TWICE A DAY WITH FOOD fluticasone propionate 44 mcg/actuation HFA aerosol inhaler 44 mcg INHALATION PRN PRN (Reason: sob) aripiprazole 2 mg tablet 2 mg PO BID Patient Comments: TAKE 1 TABLET BY MOUTH EVERY DAY FOR 7 DAYS THEN INCREASE TO 2 TABLETS DAILY cholecalciferol (vitamin D3) 50 mcg (2,000 unit) capsule 50 mcg PO DAILY Patient Comments: TAKE 1 TABLET ORALLY EVERY DAY olanzapine 10 mg tablet 10 mg PO HS Patient Comments: TAKE 1 TABLET BY MOUTH EVERY DAY IN THE EVENING carvedilol 6.25 mg tablet 6.25 mg PO BID gemfibrozil 600 mg tablet 600 mg PO BID Patient Comments: TAKE 1 TABLET BY MOUTH TWICE A DAY 30 MINUTES BEFORE MORNING AND EVENING MEAL loratadine 10 mg tablet 10 mg PO QDAY Patient Comments: TAKE 1 TABLET BY MOUTH EVERY DAY Rybelsus 3 mg tablet 3 mg PO QDAY 30 Days Qty: 30 1RF (DME) FreeStyle Caroline 3 Sensor Device See Rx Instructions .Route Qty: 1 0RF Rx Instructions: As directed Referrals: Rod Hernandez PA-C [Primary Care Provider] - Patient/Caregiver Discharge Instructions Meds to Beds: No Discharge Activity: activity as tolerated Education Materials: Addiction: Getting Help Print Language: Cambodian Stand Alone Forms: Domitila Award Info., Patient Portal Info Letter Discharge Order Discharge Orders: Discharge (Routine); Ordered 12/06/24 Ordered By: Tiffanie Alberts Quality Discharge Quality Measures VTE prophylaxis MD Attestestation MD Attestation I reviewed labs, imaging, EKG, home medications and prior available records. Face to face evaluation was performed by me. I have personally examined the patient and discussed assessment and plan with the IM team. I reviewed the resident note and agree with the plan with exceptions as below. Acute hypoxic respiratory failure Influenza B Superimposed community-acquired pneumonia, bibasilar CHF exacerbation HFpEF EF 65 to 70% Morbid obesity Primary hypertension Obstructive sleep apnea Uncontrolled diabetes mellitus with hyperglycemia, type II He is extubated and switched to BiPAP Downgraded from ICU Continue vancomycin, ceftriaxone, add azithromycin Follow-up cultures Continue Lasix 40 mg IV twice daily Continue Tamiflu Patient has a home CPAP machine, ensure compliance Outpatient weight management Started sliding scale insulin. Monitor fingersticks Time spent is 40 minutes. More than 50% of the time was spent on patient education and coordination of care.
--- NOTE | 2024-12-06 16:59 | PC.NURSE ---
Patient has discharge orders I confirmed patient uses O2 at home 2L. Patient also has a folley.Notified Dr. Russo and order is in to remove folley catheter. I also explained to Dr. Russo patient has 6 hours to urinate. As soon as patient urinates I can continue with the discharge. I will continue to monitor patient.
--- NOTE | 2024-12-06 20:18 | PC.NURSE ---
Patient wondering why patient has no order for PT when being discharged. LEWIS Thorne spoke to Dr. Morelos and she said that she will speak to her attending.
== END 2024-12-06 20:27 | disposition home or self-care (01) | DRG 133 ==
LOC: SERX 12-03 01:01 → SERHOLD 12-03 02:40 → S2SX 12-04 07:55 → S3SX 12-05 20:02
PROVIDERS: Registered Nurse General Practice; Student in an Organized Health Care Education/Training Program; Admitting Provider Internal Medicine; Emergency Provider Emergency Medicine; PCP Physician Assistant; Visit Provider Internal Medicine
DX: J96.21 Acute and chronic respiratory failure with hypoxia (principal); I11.0 Hypertensive heart disease with heart failure; E11.65 Type 2 diabetes mellitus with hyperglycemia; E66.2 Morbid (severe) obesity with alveolar hypoventilation; Z68.43 Body mass index [BMI] 50.0-59.9, adult; J10.01 Influenza due to other identified influenza virus with the same other identified influenza virus pneumonia; F20.9 Schizophrenia, unspecified; I50.33 Acute on chronic diastolic (congestive) heart failure; J44.0 Chronic obstructive pulmonary disease with (acute) lower respiratory infection; J44.1 Chronic obstructive pulmonary disease with (acute) exacerbation; J10.1 Influenza due to other identified influenza virus with other respiratory manifestations; E87.29 Other acidosis; G93.40 Encephalopathy, unspecified; E78.5 Hyperlipidemia, unspecified; J96.22 Acute and chronic respiratory failure with hypercapnia; E83.39 Other disorders of phosphorus metabolism; D64.9 Anemia, unspecified; J18.9 Pneumonia, unspecified organism; K76.0 Fatty (change of) liver, not elsewhere classified; Z78.1 Physical restraint status; Z91.199 Patient's noncompliance with other medical treatment and regimen due to unspecified reason; Z99.81 Dependence on supplemental oxygen; Z99.89 Dependence on other enabling machines and devices; Z79.84 Long term (current) use of oral hypoglycemic drugs; Z79.899 Other long term (current) drug therapy; Z87.891 Personal history of nicotine dependence
CPT/HCPCS: 36415; 36600; 71045; 76705; 80048; 80053; 80061; 80202; 80307; 80320; 81001; 82803; 83036; 83615; 83735; 83880; 84100; 84484; 85025; 85610; 85730; 87040; 87077; 87081; 87186; 87205; 87400; 87811; 93005; 93225; 94002; 94003; 94640; 94660; 94664; 94667; 96365; 96366; 96367; 96372; 96374; 96375; 97162; 99291; A9270; J0456; J0696; J1650; J1815; J1940; J2060; J2405; J2470; J2704; J2919; J3010; J3370; J3490; J7050; G0480

== ENCOUNTER 2024-12-09 05:18 | Inpatient (IN) | payer MEDICAID, SELFPAY ==
[2024-12-09] VITALS (19 sets, daily range): BP systolic 129–169; BP diastolic 68–101; PULSE 60–99; RESP 19–32; TEMP 36.1–37; O2SAT 92–99; BMI 52.1
--- NOTE | 2024-12-09 05:25 | XR_ITS ---
Examination: AP chest single view Technique one AP portable upright chest single view Exam date and time: December 09, 2024 0541 hrs. Comparison November 26, 2024 Indications: Shortness of breath today Findings: Mild enlargement cardiac contour Mild vascular congestion. Opacity left base obscuring detail left hemidiaphragm More mild opacity at the right lung base Impression: Bibasilar pneumonia Mild vascular congestion
--- NOTE | 2024-12-09 05:40 | PD.EDRME ---
Rapid Medical Screening Exam RME Arrival date/time: 12/09/24 05:18 Chief Complaint: Shortness of Breath/Dyspnea Vital signs: Vital Signs Temperature 98.1 F 12/09/24 05:32 Pulse Rate 99 12/09/24 05:32 Respiratory Rate 28 H 12/09/24 05:32 Blood Pressure 166/101 H 12/09/24 05:32 Pulse Oximetry (%) 99 12/09/24 05:32 Oxygen Flow Rate 15 12/09/24 05:32 Vital signs reviewed by provider: Yes RME Narrative: Zay Reyes is a 44-year-old male with past medical history of recurrent admissions for acute on chronic hypoxic and hypercapneic respiratory failure secondary to obesity hypoventilation syndrome and obstructive sleep apnea, hypertension, and type 2 diabetes mellitus who was brought in by EMS today after mother called EMS due to shortness of breath tonight. Initial vitals per EMS were BP 184/100, HR 98, RR 24, 95% on non-rebreather mask at 100% FiO2. EMS states that he saturates well on 95% while awake however desats while falling asleep. Patient had recent admissions for the same chief complaint and was treated for influenza B. Patient apparently still did not get a CPAP/BiPAP mask for his home [place], similar complaint to the last admission. CBC, CMP, ABG, CXR, BiPAP ordered. Further workup will be signed out to the oncoming provider, Dr. Hay.
[2024-12-09 05:56] LABS: Base Excess 3 (-3-3); HCO3 32 mEq/L (20-26); Inspired Oxygen, FIO2 55 %; PCO2 69 mmHg (32.0-48.0); PO2 114 mmHg (83-108); pH, Arterial 7.28 (7.35-7.45)
[2024-12-09 06:00] LABS: Allen Test Performed/OK; O2 Saturation 95 % (91-98); Puncture Site Right Radial
[2024-12-09 06:10] LABS: Basophils # (Auto) 0.1 Thou/mm3 (0.0-0.2); Basophils % (Auto) 1 % (0-2.5); Eosinophils # (Auto) 0.7 Thou/mm3 (0.0-0.5); Eosinophils % (Auto) 8 % (0-10); Hematocrit 46.6 % (41.0-53.0); Hemoglobin 14.5 g/dL (13.5-16.0); Immature Granulocytes % (Auto) 1 % (0-0); Immature Granulocytes Auto 0.11 Thou/mm3 (0.00-0.00); Lymphocytes # (Auto) 1.8 Thou/mm3 (1.0-4.8); Lymphocytes % (Auto) 20 % (10-50); Mean Corpuscular HGB Conc 31.1 g/dl (31.0-37.0); Mean Corpuscular Hemoglobin 27.8 pg (25.0-35.0); Mean Corpuscular Volume 89 fL (80-100); Monocytes # (Auto) 0.6 Thou/mm3 (0.0-0.8); Monocytes % (Auto) 7 % (0-12); Neutrophils # (Auto) 5.7 Thou/mm3 (1.8-7.7); Neutrophils % (Auto) 64 % (37-80); Nucleated Red Blood Cell % 0 /100 WBC (0); Platelet Count 292 Thou/mm3 (140-440); RDW Standard Deviation 51.3 fL (35.1-43.9); Red Blood Count 5.22 Miln/mm3 (4.50-5.90); White Blood Count 8.9 Thou/mm3 (3.8-10.6)
[2024-12-09 06:33] LABS: Alanine Aminotransferase 75 U/L (10-49); Albumin/Globulin Ratio 1.2 (1.2-2.2); Alkaline Phosphatase 144 U/L (46-116); Anion Gap 5 (7-16); Aspartate Amino Transferase 29 U/L (0-34); BUN/Creatinine Ratio 19 Ratio (12-20); Bilirubin,Total 0.3 mg/dL (0.3-1.2); Blood Urea Nitrogen 19 mg/dL (9-23); Calcium 8.7 mg/dL (8.3-10.6); Calcium (Corrected) 8.7 mg/dL (8.5-10.1); Carbon Dioxide 31.9 mMol/L (20.0-31.0); Chloride 103 mMol/L (98-107); Estimated Creatinine Clearance 133.4 mL/min (>60); Globulin 3.3 gm/dL (2.3-3.5); Glucose 133 mg/dL (74-106); Osmolality,Calculated 283 (275-295); Potassium 4.4 mMol/L (3.4-5.1); Sodium 140 mMol/L (136-145); Total Protein 7.3 gm/dL (5.7-8.2); eGFR > 60 See Note
--- NOTE | 2024-12-09 06:39 | PC.NURSE ---
Dr. Hay in room seeing pt.
--- NOTE | 2024-12-09 07:01 | PC.NURSE ---
Pt tolerating BIPAP well.
--- NOTE | 2024-12-09 08:02 | PD.EDADULT ---
ED General RME/HPI General Chief complaint: Shortness of Breath/Dyspnea Stated complaint: SOB Time Seen by Provider: 12/09/24 06:22 Arrival date/time: 12/09/24 05:18 RME / HPI RME / HPI narrative: 44-year-old male, morbidly obese, on CPAP, hypertension emergency department with respiratory distress in the setting of not being able to find his CPAP mask since he was discharged from the hospital 2 days ago. He is sleepy and somnolent and does not offer much further details. He falls asleep within 1-2 words. Related Data Home Medications ?Medication ?Instructions ?Recorded ?Confirmed carvedilol 6.25 mg tablet 6.25 mg PO BID 02/15/24 12/03/24 gemfibrozil 600 mg tablet 600 mg PO BID 02/15/24 12/03/24 loratadine 10 mg tablet 10 mg PO QDAY 02/15/24 12/03/24 aripiprazole 2 mg tablet 2 mg PO BID 12/03/24 12/03/24 cholecalciferol (vitamin D3) 50 50 mcg DAILY 12/03/24 12/03/24 mcg (2,000 unit) capsule fluticasone propionate 44 44 mcg inhalation PRN PRN sob 12/03/24 12/03/24 mcg/actuation HFA aerosol inhaler haloperidol 10 mg tablet 10 mg PO BID 12/03/24 12/03/24 metformin 500 mg tablet 500 mg PO BID 12/03/24 12/03/24 olanzapine 10 mg tablet 10 mg PO HS 12/04/24 12/04/24 Previous Rx's ?Medication ?Instructions ?Recorded blood-glucose sensor (FreeStyle #1 ea 10/30/24 Caroline 3 Sensor device) semaglutide 3 mg tablet (Rybelsus) 3 mg PO QDAY 30 days #30 tabs 10/30/24 amoxicillin 500 mg tablet 1,000 mg (2 x 500 mg) PO TID 4 12/06/24 days #24 tabs Allergies Allergy/AdvReac Type Severity Reaction Status Date / Time No Known Allergies Allergy Unverified 02/16/24 08:13 Review of Systems Review of Systems Systems Reviewed: All systems reviewed, normal except as documented ED Exam Narrative Physical exam: GENERAL APPEARANCE: Sleeping, arousable but falls asleep quickly, significant upper airway noises, morbidly obese HEENT: NC, AT. MMM. EOMI, clear conjunctiva, oropharynx clear. NECK: Supple without lymphadenopathy. No stiffness or restricted ROM. HEART: Distant heart sounds, sounds regular, no discernible extra heart sounds LUNGS: Distant lung sounds in all bradley ABDOMEN: Soft, nontender, nondistended with good bowel sounds heard. BACK: No midline C/T/L spine pain or deformity, No CVAT, no obvious deformity. NEUROLOGICAL: Grossly nonfocal. Alert and oriented, moving all 4 extremities. CN not formally tested but appear grossly intact. Observed to ambulate with normal gait. Skin: Warm and dry without any rash. Course Quality Measures none Orders Category Date Time Status Admit to Inpatient Status Routine Admission 12/09/24 10:17 Active Patient Condition Routine Admission 12/09/24 10:17 Ordered Aspiration precautions NOW Care 12/09/24 10:18 Active Bedrest QS Care 12/09/24 10:17 Active Bedside COVID-19 Antigen Test NOW Care 12/09/24 07:12 Active Continuous Pulse Oximetry NOW Care 12/09/24 10:17 Active Flu & Pneumonia Vaccine Screen ONCE Care 12/09/24 10:17 Active NPO NEEDED Care 12/09/24 10:17 Active NPO NOW Care 12/09/24 10:18 Active Neuro Check Q4H Care 12/09/24 10:17 Active Notify provider NEEDED Care 12/09/24 10:17 Active Vital Signs, Non-Routine Q4H Care 12/09/24 10:30 Ordered Vital Signs, Non-Routine Q4H Care 12/09/24 14:30 Ordered Vital Signs, Non-Routine Q4H Care 12/09/24 18:30 Ordered Vital Signs, Non-Routine Q4H Care 12/09/24 22:30 Ordered Diet NPO (NOW) Diet 12/09/24 10:18 Active CXRP [XR chest 1V portable] Stat Exams 12/09/24 05:25 Completed XR chest 1V portable Routine Exams 12/09/24 10:19 Ordered ABG [Arterial Blood Gas] Stat Lab 12/09/24 05:50 Completed ABG [Arterial Blood Gas] Stat Lab 12/09/24 09:24 Completed CBC AM DRAW Lab 12/10/24 05:00 Ordered CBC AM DRAW Lab 12/11/24 05:00 Ordered CBC AM DRAW Lab 12/12/24 05:00 Ordered CBC Stat Lab 12/09/24 05:45 Completed CMP [Comprehensive Metabolic Panel] Stat Lab 12/09/24 05:45 Completed Comprehensive Metabolic Panel AM DRAW Lab 12/10/24 05:00 Ordered Comprehensive Metabolic Panel AM DRAW Lab 12/11/24 05:00 Ordered Comprehensive Metabolic Panel AM DRAW Lab 12/12/24 05:00 Ordered Magnesium AM DRAW Lab 12/10/24 05:00 Ordered Magnesium AM DRAW Lab 12/11/24 05:00 Ordered Magnesium AM DRAW Lab 12/12/24 05:00 Ordered Acetaminophen Tab [Tylenol Tab] Med 12/09/24 10:17 Active 650 mg PO Q6H PRN Acetaminophen Tab [Tylenol Tab] Med 12/09/24 10:17 Active 650 mg PO Q6H PRN Enoxaparin [Lovenox] Med 12/10/24 09:00 Active 40 mg SC QDAY HYDROcodone*/APAP 5/325 [[place] 5/325] Med 12/09/24 10:17 Active 1 tab PO Q4HR PRN Morphine Inj Med 12/09/24 10:17 Active 2 mg IVP Q2H PRN Ondansetron Inj [Zofran Inj] Med 12/09/24 10:17 Active 4 mg IV Q6H PRN Code Status Routine Oth 12/09/24 10:17 Ordered BiPAP / CPAP NOW RT 12/09/24 05:25 Active Vital Signs Vital signs: Vital Signs Temperature 98.1 F 12/09/24 05:32 Pulse Rate 99 12/09/24 05:32 Respiratory Rate 28 H 12/09/24 05:32 Blood Pressure 166/101 H 12/09/24 05:32 Pulse Oximetry (%) 99 12/09/24 05:32 Oxygen Flow Rate 15 12/09/24 05:32 SpO2 99% on 15 L, patient is not hypoxic MDM Patient data External records reviewed:: [facility] previous records Clinical information provided by:: patient Social determinants that could affect healthcare access:: none Patient has the following chronic illnesses:: Obstructive sleep apnea, morbid obesity How is presenting disease/condition affected by chronic disease/condition?: caused by Evaluation data The following diagnostics were reviewed and interpreted by me:: lab results, radiology exam(s) and EKG tracing(s) Lab and/or radiology exams considered but not ordered:: None Interpretation Summary: As per narrative Medications Medications considered but not ordered:: None Medication administrations:: Medication Administration History Acetaminophen (Acetaminophen 325 Mg Tablet) 650 mg PO Q6H PRN PRN Reason: Fever >101.5 Stop: 01/08/25 10:16 Acetaminophen (Acetaminophen 325 Mg Tablet) 650 mg PO Q6H PRN PRN Reason: PAIN SCALE 1-3 (mild Stop: 01/08/25 10:16 Hydrocodone Bitart/Acetaminophen (Hydrocodone/Apap 5/325 Tablet) 1 tab PO Q4HR PRN PRN Reason: PAIN SCALE 4-6 (Moderate Stop: 12/14/24 10:16 Enoxaparin Sodium (Enoxaparin Sod Inj 40 Mg/0.4 Ml Syringe) 40 mg SC QDAY JEANNE Stop: 12/24/24 08:59 Morphine Sulfate (Morphine Sulf Inj 10 Mg/Ml Vial) 2 mg IVP Q2H PRN PRN Reason: PAIN SCALE 7-10 (Severe Stop: 12/14/24 10:16 Ondansetron HCl (Ondansetron Inj 2 Mg/Ml Inj 2 Ml) 4 mg IV Q6H PRN; Protocol PRN Reason: NAUSEA OR VOMITING Stop: 01/08/25 10:16 None Consultations Consultation(s) initiated? (list below): No Diagnosis Differential Diagnosis ED Complaint MDM: Hypercapnic respiratory failure, pneumonia, CHF exacerbation Most likely diagnosis given after review of the tests above:: See below Admission Indicated Admission indicated?: indicated Explain why admission is indicated or not indicated:: As per narrative Admission Request Was there a request for admission?: Yes Admission Attestation Admission request attestation: Discussed case with [] from Hospitalist service regarding admission. Discussed patients ED course, exam findings, labs, and radiology results. The Hospitalist [agrees,declines] to accept the patient for admission. Disposition Plan Disposition Plan: Admit Medical Decision Making MDM Narrative MDM Narrative: Mr. Bautista presents to the emergency department with respiratory difficulty and hypersomnolence consistent with his chronic recurrent obstructive sleep apnea and respiratory failure. This sounds to be a situational trigger as he has not been able to find his CPAP mask at home since he was discharged from the hospital 2 days ago for the exact same issue. Clinical exam is concerning for a respiratory acidosis therefore patient was started on BiPAP and ABG was done. Results were significant for an acute respiratory acidosis and hypercapnia. Clinically he is somnolent and falls asleep within the second word of a sentence therefore I feel he would benefit from more positive pressure with BiPAP. Case was discussed with the hospitalist service for admission. Laboratory testing was sent via the RME process which shows no acute findings and is unchanged from his routine daily labs throughout his hospital stay 2 days ago. Differential Diagnosis Differential Diagnosis: Hypercapnic respiratory failure, pneumonia, CHF exacerbation Lab Data 12/09/24 05:45 12/09/24 05:45 Labs: Lab Results 12/09/24 12/09/24 12/09/24 Range/Units 05:45 05:50 09:24 WBC 8.9 (3.8-10.6) Thou/mm3 RBC 5.22 (4.50-5.90) Miln/mm3 Hgb 14.5 (13.5-16.0) g/dL Hct 46.6 (41.0-53.0) % MCV 89 (80-100) fL MCH 27.8 (25.0-35.0) pg MCHC 31.1 (31.0-37.0) g/dl RDW Std Deviation 51.3 H (35.1-43.9) fL Plt Count 292 D (140-440) Thou/mm3 Neut % (Auto) 64 (37-80) % Lymph % (Auto) 20 (10-50) % [place] % (Auto) 7 (0-12) % Eos % (Auto) 8 (0-10) % Baso % (Auto) 1 (0-2.5) % Neut # (Auto) 5.7 (1.8-7.7) Thou/mm3 Lymph # (Auto) 1.8 (1.0-4.8) Thou/mm3 [place] # (Auto) 0.6 (0.0-0.8) Thou/mm3 Eos # (Auto) 0.7 H (0.0-0.5) Thou/mm3 Baso # (Auto) 0.1 (0.0-0.2) Thou/mm3 Immature Gran # (Auto) 0.11 H (0.00-0.00) Thou/mm3 Absolute Nucleated RBC 0.00 (0.00-0.00) Thou/mm3 Immature Gran % 1 H (0-0) % Nucleated RBC % 0 (0) /100 WBC Puncture Site Right Radial Left Radial ABG pH 7.28 L D 7.29 L (7.35-7.45) ABG pCO2 69 H D 70 H (32.0-48.0) mmHg ABG pO2 114 H D 173 H D (83-108) mmHg ABG HCO3 32 H 34 H (20-26) mEq/L ABG O2 Saturation 95 100 H (91-98) % ABG Base Excess 3 5 H (-3-3) FiO2 55 21 % Sodium 140 (136-145) mMol/L Potassium 4.4 (3.4-5.1) mMol/L Chloride 103 (98-107) mMol/L Carbon Dioxide 31.9 H (20.0-31.0) mMol/L Anion Gap 5 L (7-16) BUN 19 (9-23) mg/dL Creatinine 1.0 (0.6-1.3) mg/dL Estim Creat Clear Calc 133.4 (>60) mL/min eGFR > 60 (60 - ) See Note BUN/Creatinine Ratio 19 (12-20) Ratio Glucose 133 H (74-106) mg/dL Calculated Osmolality 283 (275-295) Calcium 8.7 (8.3-10.6) mg/dL Corrected Calcium 8.7 (8.5-10.1) mg/dL Total Bilirubin 0.3 (0.3-1.2) mg/dL AST 29 (0-34) U/L ALT 75 H (10-49) U/L Alkaline Phosphatase 144 H (46-116) U/L Total Protein 7.3 (5.7-8.2) gm/dL Albumin 4.0 (3.5-5.0) gm/dL Globulin 3.3 (2.3-3.5) gm/dL Albumin/Globulin Ratio 1.2 (1.2-2.2) Critical Care Time Critical Care Time Critical Care Time: Yes Total Critical Care Time (min.): 35 Attestation: Excluding billable procedures for the rapid response, analysis, management, treatment, and documentation to vent the very possible risk of cardiopulmonary decompensation and/or . Discharge Plan Plan Patient Disposition: Admit Acute Care w/in Hospital Prescriptions/Referrals Prescriptions/Med Rec: No Action haloperidol 10 mg tablet 10 mg PO BID Patient Comments: TAKE 1 TABLET BY MOUTH TWICE A DAY metformin 500 mg tablet 500 mg PO BID Patient Comments: TAKE 1 TABLET BY MOUTH TWICE A DAY WITH FOOD fluticasone propionate 44 mcg/actuation HFA aerosol inhaler 44 mcg INHALATION PRN PRN (Reason: sob) aripiprazole 2 mg tablet 2 mg PO BID Patient Comments: TAKE 1 TABLET BY MOUTH EVERY DAY FOR 7 DAYS THEN INCREASE TO 2 TABLETS DAILY cholecalciferol (vitamin D3) 50 mcg (2,000 unit) capsule 50 mcg DAILY Patient Comments: TAKE 1 TABLET ORALLY EVERY DAY olanzapine 10 mg tablet 10 mg PO HS Patient Comments: TAKE 1 TABLET BY MOUTH EVERY DAY IN THE EVENING amoxicillin 500 mg tablet 1,000 mg PO TID 4 Days Qty: 24 0RF carvedilol 6.25 mg tablet 6.25 mg PO BID gemfibrozil 600 mg tablet 600 mg PO BID Patient Comments: TAKE 1 TABLET BY MOUTH TWICE A DAY 30 MINUTES BEFORE MORNING AND EVENING MEAL loratadine 10 mg tablet 10 mg PO QDAY Patient Comments: TAKE 1 TABLET BY MOUTH EVERY DAY Rybelsus 3 mg tablet 3 mg PO QDAY 30 Days Qty: 30 1RF (DME) FreeStyle Caroline 3 Sensor Device See Rx Instructions .Route Qty: 1 0RF Rx Instructions: As directed Referrals: Bill)Kanchan PA-C [Primary Care Provider] - In 1 week Problem List Clinical Impression: BHAVESH (obstructive sleep apnea), Acute respiratory failure with hypoxia and hypercapnia Patient/Caregiver Discharge Instructions Print Language: Belizean Stand Alone Forms: Domitila Award Info., Patient Portal Info Letter
--- NOTE | 2024-12-09 08:16 | PC.NURSE ---
PT RESTING W/EYES CLOSED EVEN RISE AND FALL OF CHEST, HYPERTENSIVE, AND TACHYPNEIC ON TELE. DENIES ANY PAIN OR COMFORT UPON ASSUMPTION OF CARE, CONTINUES ON BI-PAP AT THIS TIME. CALL DE LEÓN IN REACH.
[2024-12-09 09:27] LABS: Base Excess 5 (-3-3); HCO3 34 mEq/L (20-26); Inspired Oxygen, FIO2 21 %; O2 Saturation 100 % (91-98); PCO2 70 mmHg (32.0-48.0); PO2 173 mmHg (83-108); pH, Arterial 7.29 (7.35-7.45)
[2024-12-09 09:28] LABS: Allen Test Performed/OK; Puncture Site Left Radial
--- NOTE | 2024-12-09 10:19 | XR_ITS ---
Examination: AP chest single view Technique one AP portable semiupright chest single view Exam date and time: December 09, 2024 1045 hrs. Comparison December 09, 2024 0541 hrs. Indications: Chest pain shortness of breath today. Findings: Left base pneumonia Mild to moderate enlargement cardiac contour with moderate vascular congestion The osseous structures are intact Impression: Left base pneumonia Moderate vascular congestion
[2024-12-09] MEDS: ALBUTEROL/IPRATROPIUM (Duoneb) RT SOL 3 ML NEBU INH ×2 (12:44→18:57)
--- NOTE | 2024-12-09 12:58 | PC.NURSE ---
SPOKE W/MOM AT THIS TIME, MOM WOULD LIKE HIM TO GO TO REHAB TO GET BETTER, FEELS THAT SHE CANNOT TAKE CARE OF HIM ADEQUATELY.
[2024-12-09] MEDS: FUROSEMIDE INJ 10 MG/ML 4ML VIAL 40 MG IVP ×2 (13:44→17:06)
--- NOTE | 2024-12-09 16:25 | ESHP_ITS ---
Documentation for date of: 12/09/24 [facility] History of Present Illness Chief complaint: SOB History of present illness: Zay Reyes is 44 yr male with PMH of obesity, hypertension, type 2 diabetes, schizophrenia, obstructive sleep apnea on 2 L oxygen and BiPAP, recurrent admissions due to respiratory failure brought the hospital with chief complaints of Shortness of breath. Patient was just discharged from hospital on 12/05/2024 after being intubated due to acute hypoxic respiratory failure secondary to poor compliance with CPAP machine. Patient is presenting with similar symptoms of shortness of breath stating that someone has stolen his CPAP machine. He denies any fever, chest pain, palpitations, orthopnea. In the ED, patient was hypertensive 184/100, HR 98, tachypneic 24, started on BiPAP after ABGs showed respiratory acidosis pH 7.28 and pCO2 69. Repeat ABGs did not show any major change. Will keep patient n.p.o. and continue BiPAP. Admitted for acute hypercapnic respiratory failure secondary to BHAVESH/OHS. PMH: as noted above PSH: Noncontributory Social history:former smoker, former recreational drug user, denies alcohol use Exam Vital Signs Temp Pulse Resp BP Pulse Ox O2 Del Method O2 Flow Rate 98.3 F 96 27 H 141/93 H 94 L BiPAP 15 12/09/24 14:47 12/09/24 15:16 12/09/24 15:16 12/09/24 14:47 12/09/24 15:16 12/09/24 14:47 12/09/24 05:32 FiO2 45 12/09/24 15:16 Narrative Exam General: Obese adult male, mild respiratory distress Eyes: Pupils are equal and reactive to light bilaterally HEENT: Atraumatic, normocephalic. No JVD noted. Mucosa moist. Cardiovascular: Normal S1 and S2. Regular rate and rhythm. Respiratory: No wheezing or crackles heard. On BiPAP Abdomen: Soft, nontender, not distended, normal bowel sounds. Skin: Warm to touch, dry, no rashes noted Musculoskeletal: No gross injuries. Able to move all 4 extremities. No lower extremity edema Neuro: Alert and oriented x3. No focal neuro deficits. Psych: Normal affect and mood Results: Labs 12/11/24 04:39 12/11/24 04:39 Labs: Short CBC 12/09/24 Range/Units 05:45 WBC 8.9 (3.8-10.6) Thou/mm3 Hgb 14.5 (13.5-16.0) g/dL Hct 46.6 (41.0-53.0) % Plt Count 292 D (140-440) Thou/mm3 BMP 12/09/24 05:45 Sodium 140 Potassium 4.4 Chloride 103 Carbon Dioxide 31.9 H BUN 19 Creatinine 1.0 Glucose 133 H Calcium 8.7 Liver Function 12/09/24 Range/Units 05:45 Total Bilirubin 0.3 (0.3-1.2) mg/dL AST 29 (0-34) U/L ALT 75 H (10-49) U/L Alkaline Phosphatase 144 H (46-116) U/L Albumin 4.0 (3.5-5.0) gm/dL ABG Interpretation ABG results: 12/09/24 12/09/24 05:50 09:24 ABG pH 7.28 L D 7.29 L ABG pCO2 69 H D 70 H ABG pO2 114 H D 173 H D ABG HCO3 32 H 34 H ABG O2 Saturation 95 100 H ABG Base Excess 3 5 H Quality Measures Quality Measures none Medications Home Medications and Allergies Home Medications ?Medication ?Instructions ?Recorded ?Confirmed ?Type carvedilol 6.25 mg tablet 6.25 mg PO BID 02/15/2401/01 History gemfibrozil 600 mg tablet 600 mg PO BID 02/15/2412/09 History loratadine 10 mg tablet 10 mg PO QDAY 02/15/2412/09 History aripiprazole 2 mg tablet 2 mg PO BID 12/03/24 5 History cholecalciferol (vitamin D3) 50 50 mcg PO DAILY 12/09/24 History mcg (2,000 unit) capsule fluticasone propionate 44 44 mcg inhalation PRN PRN so b 12/03/24 12/09/24 History mcg/actuation HFA aerosol inhaler haloperidol 10 mg tablet 10 mg PO BID 12/03/24 History metformin 500 mg tablet 500 mg PO BID 12/03/2412/09 History olanzapine 10 mg tablet 10 mg PO HS 12/04/24 5 History Allergies Allergy/AdvReac Type Severity Reaction Status Date / Time No Known Allergies Allergy Unverified 02/16/24 08:13 Visit Medications Acetaminophen (Acetaminophen 325 Mg Tablet) 650 mg PO Q6H PRN PRN Reason: Fever >101.5 Stop: 01/08/25 10:16 Acetaminophen (Acetaminophen 325 Mg Tablet) 650 mg PO Q6H PRN PRN Reason: PAIN SCALE 1-3 (mild Stop: 01/08/25 10:16 Hydrocodone Bitart/Acetaminophen (Hydrocodone/Apap 5/325 Tablet) 1 tab PO Q4HR PRN PRN Reason: PAIN SCALE 4-6 (Moderate Stop: 12/14/24 10:16 Albuterol/Ipratropium (Albuterol/Ipratropium (Duoneb) Rt Katarina 3 Ml Nebu) 3 ml INH Q6HRRT [facility] Stop: 01/08/25 12:59 Last Admin: 12/09/24 12:44 Dose: 3 ml Enoxaparin Sodium (Enoxaparin Sod Inj 40 Mg/0.4 Ml Syringe) 40 mg SC QDAY [facility] Stop: 12/24/24 08:59 Furosemide (Furosemide Inj 10 Mg/Ml 4ml Vial) 40 mg IVP BIDD [facility] Stop: 01/08/25 11:44 Last Admin: 12/09/24 13:44 Dose: 40 mg Methylprednisolone Sodium Succinate (Methylprednisolone Sod Succ 40 Mg Vial) 40 mg IVP DAILY [facility] Stop: 12/16/24 11:44 Last Admin: 12/09/24 13:44 Dose: 40 mg Morphine Sulfate (Morphine Sulf Inj 10 Mg/Ml Vial) 2 mg IVP Q2H PRN PRN Reason: PAIN SCALE 7-10 (Severe Stop: 12/14/24 10:16 Ondansetron HCl (Ondansetron Inj 2 Mg/Ml Inj 2 Ml) 4 mg IV Q6H PRN; Protocol PRN Reason: NAUSEA OR VOMITING Stop: 01/08/25 10:16 Assessment & Plan Plan Zay Reyes is 44 yr male with PMH of obesity, hypertension, type 2 diabetes, schizophrenia, obstructive sleep apnea on 2 L oxygen and BiPAP, recurrent admissions due to respiratory failure brought the hospital with chief complaints of Shortness of breath. Patient was just discharged from hospital on 12/05/2024 after being intubated due to acute hypoxic respiratory failure secondary to poor compliance with CPAP machine. Admitted for acute hypercapnic respiratory failure secondary to BHAVESH/OHS. #Acute hypercapnic respiratory failure 2/2 #BHAVESH/OHS #COPD exacerbation Patient presenting to ED after being recently discharged with similar symptoms of shortness of breath. Had previously stated that someone had stolen his machine. Therefore has since been noncompliant and unable to retrieve new one. Mild wheezing appreciated on physical exam. -IV methylprednisone 40 mg daily -DuoNeb Q6 HR -Continue BiPAP -sales agent business services consult in regards to getting new machine #CHF exacerbation, HFpEF 65-70% -IV Lasix 40 mg twice daily -hold metoprolol succinate -daily weights -strict INOs -low sodium diet -restrict fluid to 1500mL -keep potassium >4, mag >2 -daily CBC, CMP #Hx HTN -Hold Coreg 6.25 mg twice daily in setting of acute CHF exacerbation #Hx [id number] type 2 diabetes #Obesity class III On admission initial glucose 133. Last A1c 7.5 on 12/04/2024. -Held home medications -Bedside blood glucose checks ACHS -Insulin lispro sliding scale -Carb consistent low diet Health maintenance: Dispo: tele, BiPAP for acute hypercapnic respiratory failure DVT prophylaxis: Lovenox CODE STATUS: Full code Diet: N.p.o. The patient's management plan was discussed with my attending physician Dr. Alba. Eli Ashton, PGY-1 Attending Provider Attestation/Addendum Patient seen and examined at bedside with resident. Agree with assessment and plan as dictated above. 44-year-old male with past medical history of morbid obesity and BHAVESH with CPAP presented to ED due to complaint of shortness of breath. He was recently discharged from the ER after extended hospital stay for AHRF requiring intubation and extended hospital stay. Patient was noncompliant with CPAP and he reports he could not locate his supplies. ABG in the ER showed respiratory acidosis, patient will admit AHHRF. Beck Alba MD
[2024-12-10] VITALS (17 sets, daily range): BP systolic 132–151; BP diastolic 76–90; PULSE 58–94; RESP 12–28; TEMP 35.8–37.2; O2SAT 93–99
[2024-12-10] MEDS: ALBUTEROL/IPRATROPIUM (Duoneb) RT SOL 3 ML NEBU INH ×4 (00:26→18:45)
--- NOTE | 2024-12-10 02:38 | PC.NURSE ---
PT REQUESTING TO TAKE A BREAK FROM BIPAP. SPOKE WITH DR. SAEED, NO ABG ORDERED FOR THIS AM. STATES TO CONTINUE WITH BIPAP FOR NOW AND ABG ORDER WILL BE PLACED BY MD FOR THIS MORNING.
[2024-12-10 05:09] LABS: Base Excess 10 (-3-3); HCO3 38 mEq/L (20-26); Inspired Oxygen, FIO2 35 %; O2 Saturation 88 % (91-98); PCO2 61 mmHg (32.0-48.0)
[2024-12-10 05:16] LABS: Allen Test Performed/OK; Puncture Site Left Radial
[2024-12-10 05:19] LABS: PO2 54 mmHg (83-108)
[2024-12-10] MEDS: FUROSEMIDE INJ 10 MG/ML 4ML VIAL 40 MG IVP ×2 (05:23→18:05)
[2024-12-10 06:19] LABS: Basophils # (Auto) 0.1 Thou/mm3 (0.0-0.2); Basophils % (Auto) 0 % (0-2.5); Eosinophils # (Auto) 0.2 Thou/mm3 (0.0-0.5); Eosinophils % (Auto) 1 % (0-10); Hematocrit 44.4 % (41.0-53.0); Immature Granulocytes % (Auto) 1 % (0-0); Immature Granulocytes Auto 0.06 Thou/mm3 (0.00-0.00); Lymphocytes # (Auto) 1.7 Thou/mm3 (1.0-4.8); Lymphocytes % (Auto) 15 % (10-50); Mean Corpuscular HGB Conc 31.5 g/dl (31.0-37.0); Mean Corpuscular Hemoglobin 27.5 pg (25.0-35.0); Mean Corpuscular Volume 87 fL (80-100); Monocytes # (Auto) 0.7 Thou/mm3 (0.0-0.8); Monocytes % (Auto) 6 % (0-12); Neutrophils # (Auto) 9.1 Thou/mm3 (1.8-7.7); Neutrophils % (Auto) 78 % (37-80); Nucleated Red Blood Cell % 0 /100 WBC (0); Platelet Count 269 Thou/mm3 (140-440); RDW Standard Deviation 49.7 fL (35.1-43.9); White Blood Count 11.7 Thou/mm3 (3.8-10.6)
[2024-12-10 06:55] LABS: Alanine Aminotransferase 68 U/L (10-49); Albumin, Serum 4.2 gm/dL (3.5-5.0); Albumin/Globulin Ratio 1.4 (1.2-2.2); Alkaline Phosphatase 86 U/L (46-116); Anion Gap 8 (7-16); Aspartate Amino Transferase 29 U/L (0-34); BUN/Creatinine Ratio 24 Ratio (12-20); Bilirubin,Total 0.4 mg/dL (0.3-1.2); Blood Urea Nitrogen 19 mg/dL (9-23); Calcium 8.9 mg/dL (8.3-10.6); Calcium (Corrected) 8.9 mg/dL (8.5-10.1); Carbon Dioxide 35.8 mMol/L (20.0-31.0); Chloride 101 mMol/L (98-107); Creatinine (Component) 0.8 mg/dL (0.6-1.3); Estimated Creatinine Clearance 166.8 mL/min (>60); Globulin 3.1 gm/dL (2.3-3.5); Glucose 114 mg/dL (74-106); Magnesium 2.3 mg/dL (1.6-2.6); Osmolality,Calculated 291 (275-295); Potassium 3.2 mMol/L (3.4-5.1); Sodium 145 mMol/L (136-145); Total Protein 7.3 gm/dL (5.7-8.2); eGFR > 60 See Note
[2024-12-10] MEDS: POTASSIUM CHLORIDE 20 mEq TABCR 40 MEQ PO (08:31)
[2024-12-10] MEDS: POTASSIUM CHLORIDE 20 mEq TABCR PO (08:32)
[2024-12-10] MEDS: ENOXAPARIN SOD INJ 40 MG/0.4 ML SYRINGE SC (08:32)
--- NOTE | 2024-12-10 11:17 | PC.SS ---
Patient Zay Joaquin is 44 year old male admitted for AHHRF. SS met with patient at bedside to discuss discharge plan. Patient was able to verify demographic information. Patient reports his mother, Lakisha Kirby is his surrogate decision maker [phone]. Patient reprots he lives at home with his mother. Patient reports that prior to admission he was able to complete all ADL's independently. Pt does utilize home 02 at home however does not remember how many Liters of 02 he is on daily. Pts PCP is Rod Hernandez. Pt is affliated with [facility]. Choice of pharmacy is [facility]. At time of discharge patient will return back home, family will provide transportation. Discharge Plan: Home DM: Mother, Lakisha Kirby PCP: Rod Hernandez
--- NOTE | 2024-12-10 15:34 | ESPR_ITS ---
<Statement entered by Judy Menard MD - 12/10/24 16:56> I discussed with and supervised my co-resident involved in the care of this patient. I agree with the assessment and plan as documented above. Patient seen and examined at bedside. Doing well on BIPAP. ABG improved. Will trial off BIPAP. Patient will need to be on during at night and when napping. Electrolytes repleted. Anticipate discharge within the next 24-48 hours. Patient will need to be compliant with BIPAP at home. Judy Menard MD PGY-3 Documentation for date of: 12/10/24 Subjective Subjective Interval history: Patient seen and examined at bedside. Dates that he is feeling better today with no shortness of breath or chest pain. Has been on BiPAP since admission. ABGs improved with pH 7.4, pCO2 61. Will continue BiPAP at bedtime and resume low carb consistent diet. No lower extremity edema, difficult to auscultate lungs due to body habitus. Patient has completed amoxicillin course and also 10 mg course since last admission. Will continue with supportive management. WBC slightly increased today 11.7 possibly due to methylprednisone for COPD treatment. If his CPAP machine has been stolen, patient will need another appointment with PCP for sleep study referral. Exam Vital Signs Temp Pulse Resp BP Pulse Ox O2 Del Method O2 Flow Rate 98.9 F 82 26 H 134/90 H 98 BiPAP 15 12/10/24 12:00 12/10/24 14:11 12/10/24 14:11 12/10/24 12:00 12/10/24 14:11 12/10/24 12:00 12/10/24 12:00 FiO2 60 12/10/24 14:11 Narrative Exam General: Obese adult male, no major distress, laying comfortably on BiPAP Eyes: Pupils are equal and reactive to light bilaterally HENT: Atraumatic, normocephalic. No JVD noted. Mucosa moist. Cardiovascular: Normal S1 and S2. Regular rate and rhythm. Respiratory: On BiPAP, difficult to auscultate due to body habitus Abdomen: Soft, nontender, not distended, normal bowel sounds. Skin: Warm to touch, dry, no rashes noted Musculoskeletal: No gross injuries. Able to move all 4 extremities. No lower extremity edema Neuro: Alert and oriented x3. No focal neuro deficits. Psych: Normal affect and mood Objective Labs 12/11/24 04:39 12/11/24 04:39 Labs: Laboratory Results - last 24 hr 12/10/24 12/10/24 04:55 05:34 WBC 11.7 H RBC 5.10 Hgb 14.0 Hct 44.4 MCV 87 MCH 27.5 MCHC 31.5 RDW Std Deviation 49.7 H Plt Count 269 Neut % (Auto) 78 Lymph % (Auto) 15 [place] % (Auto) 6 Eos % (Auto) 1 Baso % (Auto) 0 Neut # (Auto) 9.1 H Lymph # (Auto) 1.7 [place] # (Auto) 0.7 Eos # (Auto) 0.2 Baso # (Auto) 0.1 Immature Gran # (Auto) 0.06 H Absolute Nucleated RBC 0.00 Immature Gran % 1 H Nucleated RBC % 0 Puncture Site Left Radial ABG pH 7.40 D ABG pCO2 61 H ABG pO2 54 L* D ABG HCO3 38 H ABG O2 Saturation 88 L ABG Base Excess 10 H FiO2 35 Sodium 145 Potassium 3.2 L D Chloride 101 Carbon Dioxide 35.8 H Anion Gap 8 BUN 19 Creatinine 0.8 Estim Creat Clear Calc 166.8 eGFR > 60 BUN/Creatinine Ratio 24 H Glucose 114 H Calculated Osmolality 291 Calcium 8.9 Corrected Calcium 8.9 Magnesium 2.3 Total Bilirubin 0.4 AST 29 ALT 68 H Alkaline Phosphatase 86 D Total Protein 7.3 Albumin 4.2 Globulin 3.1 Albumin/Globulin Ratio 1.4 ABG Interpretation ABG results: 12/09/24 12/09/24 12/10/24 05:50 09:24 04:55 ABG pH 7.28 L D 7.29 L 7.40 D ABG pCO2 69 H D 70 H 61 H ABG pO2 114 H D 173 H D 54 L* D ABG HCO3 32 H 34 H 38 H ABG O2 Saturation 95 100 H 88 L ABG Base Excess 3 5 H 10 H Quality Measures Quality Measures none Assessment & Plan Assessment Current Active Medications: Generic Name Dose Route Start Last Admin Trade Name Freq PRN Reason Stop Dose Admin Acetaminophen 650 mg 12/09/24 10:17 Acetaminophen 325 Mg Tablet PO 01/08/25 10:16 Q6H PRN Fever >101.5 Acetaminophen 650 mg 12/09/24 10:17 Acetaminophen 325 Mg Tablet PO 01/08/25 10:16 Q6H PRN PAIN SCALE 1-3 (mild Hydrocodone Bitart/Acetaminophen 1 tab 12/09/24 10:17 Hydrocodone/Apap 5/325 Tablet PO 12/14/24 10:16 Q4HR PRN PAIN SCALE 4-6 (Moderate Albuterol/Ipratropium 3 ml 12/09/24 13:00 12/10/24 14:09 Albuterol/Ipratropium (Duoneb) Rt Katarina 3 Ml Nebu INH 01/08/25 12:59 3 ml Q6HRRT JEANNE Administration Enoxaparin Sodium 40 mg 12/10/24 09:00 12/10/24 08:32 Enoxaparin Sod Inj 40 Mg/0.4 Ml Syringe SC 12/24/24 08:59 40 mg QDAY JEANNE Administration Furosemide 40 mg 12/09/24 11:45 12/10/24 05:23 Furosemide Inj 10 Mg/Ml 4ml Vial IVP 01/08/25 11:44 40 mg BIDD JEANNE Administration Methylprednisolone Sodium Succinate 40 mg 12/09/24 11:45 12/10/24 08:32 Methylprednisolone Sod Succ 40 Mg Vial IVP 12/16/24 11:44 40 mg DAILY JEANNE Administration Morphine Sulfate 2 mg 12/09/24 10:17 Morphine Sulf Inj 10 Mg/Ml Vial IVP 12/14/24 10:16 Q2H PRN PAIN SCALE 7-10 (Severe Ondansetron HCl 4 mg 12/09/24 10:17 Ondansetron Inj 2 Mg/Ml Inj 2 Ml IV 01/08/25 10:16 Q6H PRN NAUSEA OR VOMITING Protocol Plan Zay Reyes is 44 yr male with PMH of obesity, hypertension, type 2 diabetes, schizophrenia, obstructive sleep apnea on 2 L oxygen and BiPAP, recurrent admissions due to respiratory failure brought the hospital with chief complaints of Shortness of breath. Patient was just discharged from hospital on 12/05/2024 after being intubated due to acute hypoxic respiratory failure secondary to poor compliance with CPAP machine. Admitted for acute hypercapnic respiratory failure secondary to BHAVESH/OHS. #Acute hypercapnic respiratory failure 2/2 #BHAVESH/OHS #Respiratory acidosis with metabolic compensation-resolved #COPD exacerbation Patient presenting to ED after being recently discharged with similar symptoms of shortness of breath. Had previously stated that someone had stolen his machine. Therefore has since been noncompliant and unable to retrieve new one. Mild wheezing appreciated on physical exam. Repeat ABGs show improvement of acidosis with pH 7.4, pCO2 61. Patient is chronic retainer Patient will need to follow-up with PCP to get another referral for sleep study. His CPAP machine has been stolen? -IV methylprednisone 40 mg daily -DuoNeb Q6 HR -Continue BiPAP HS -director professional services consult in regards to getting new machine #CHF exacerbation, HFpEF 65-70% -IV Lasix 40 mg twice daily -hold metoprolol succinate -daily weights -strict INOs -low sodium diet -restrict fluid to 1500mL -keep potassium >4, mag >2 -daily CBC, CMP #Hypokalemia Most likely due to Lasix and albuterol. -Repleted 40+20 mEq today -Keep potassium greater than 4 -Daily CMP #Hx HTN -Hold Coreg 6.25 mg twice daily in setting of acute CHF exacerbation #Hx [id number] type 2 diabetes #Obesity class III On admission initial glucose 133. Last A1c 7.5 on 12/04/2024. -Held home medications -Bedside blood glucose checks ACHS -Insulin lispro sliding scale -Carb consistent low diet Health maintenance: Dispo: tele, BiPAP for acute hypercapnic respiratory failure DVT prophylaxis: Lovenox CODE STATUS: Full code Diet: Start low carb consistent diet The patient's management plan was discussed with my attending physician Dr. Reese and senior Dr. Menard. Eli Ashton, PGY-1 Attending Provider Attestation/Addendum Face to face evaluation was performed by me. I have personally seen and examined the patient. I discussed the assessment and plan with the entire medicine team. I reviewed available medical records, imaging studies, laboratory results. I agree with the above subjective data, objective findings, assessment and plan except as corrected by me or noted below #Acute hypercapnic respiratory failure 2/2 #BHAVESH/OHS #Respiratory acidosis with metabolic compensation-resolved #COPD exacerbation Continue with BiPAP recovering from flu continue current treatments
[2024-12-11] VITALS (10 sets, daily range): BP systolic 134–151; BP diastolic 70–94; PULSE 75–92; RESP 20–27; TEMP 36.3–36.7; O2SAT 90–98; BMI 51.0
[2024-12-11] MEDS: ALBUTEROL/IPRATROPIUM (Duoneb) RT SOL 3 ML NEBU INH ×3 (01:10→12:47)
[2024-12-11] MEDS: FUROSEMIDE INJ 10 MG/ML 4ML VIAL 40 MG IVP (05:19)
[2024-12-11 06:30] LABS: Basophils # (Auto) 0.1 Thou/mm3 (0.0-0.2); Basophils % (Auto) 0 % (0-2.5); Eosinophils # (Auto) 0.2 Thou/mm3 (0.0-0.5); Eosinophils % (Auto) 2 % (0-10); Hematocrit 42.6 % (41.0-53.0); Hemoglobin 13.6 g/dL (13.5-16.0); Immature Granulocytes % (Auto) 1 % (0-0); Immature Granulocytes Auto 0.09 Thou/mm3 (0.00-0.00); Lymphocytes # (Auto) 2.2 Thou/mm3 (1.0-4.8); Lymphocytes % (Auto) 19 % (10-50); Mean Corpuscular HGB Conc 31.9 g/dl (31.0-37.0); Mean Corpuscular Volume 88 fL (80-100); Monocytes # (Auto) 0.7 Thou/mm3 (0.0-0.8); Monocytes % (Auto) 6 % (0-12); Neutrophils # (Auto) 8.2 Thou/mm3 (1.8-7.7); Neutrophils % (Auto) 72 % (37-80); Nucleated Red Blood Cell % 0 /100 WBC (0); Platelet Count 265 Thou/mm3 (140-440); RDW Standard Deviation 49.8 fL (35.1-43.9); Red Blood Count 4.86 Miln/mm3 (4.50-5.90); White Blood Count 11.5 Thou/mm3 (3.8-10.6)
[2024-12-11 07:02] LABS: Alanine Aminotransferase 65 U/L (10-49); Albumin, Serum 3.9 gm/dL (3.5-5.0); Albumin/Globulin Ratio 1.3 (1.2-2.2); Alkaline Phosphatase 81 U/L (46-116); Anion Gap 7 (7-16); Aspartate Amino Transferase 33 U/L (0-34); BUN/Creatinine Ratio 26 Ratio (12-20); Bilirubin,Total 0.5 mg/dL (0.3-1.2); Blood Urea Nitrogen 23 mg/dL (9-23); Calcium (Corrected) 9.1 mg/dL (8.5-10.1); Carbon Dioxide 31.2 mMol/L (20.0-31.0); Chloride 101 mMol/L (98-107); Creatinine (Component) 0.9 mg/dL (0.6-1.3); Estimated Creatinine Clearance 146.4 mL/min (>60); Globulin 3.1 gm/dL (2.3-3.5); Glucose 89 mg/dL (74-106); Magnesium 2.1 mg/dL (1.6-2.6); Osmolality,Calculated 280 (275-295); Potassium 3.3 mMol/L (3.4-5.1); Sodium 139 mMol/L (136-145); eGFR > 60 See Note
[2024-12-11] MEDS: ENOXAPARIN SOD INJ 40 MG/0.4 ML SYRINGE SC (08:25)
[2024-12-11] MEDS: POTASSIUM CHLORIDE 20 mEq TABCR 40 MEQ PO ×2 (08:25→11:24)
--- NOTE | 2024-12-11 15:22 | PD.RESDS ---
Planned Discharge Date 12/11/24 DS: Providers Provider Date of admission: 12/09/24 10:52 Primary care physician: Kanchan Alberts([facility]), SHELLIE Admitting Provider: Beck Alba MD Attending Provider on Admission: Rudy Andrews MD Attending Provider on DC: Eli Ashton MD Discharging Provider: Eli Ashton MD DS: Diagnosis Problem List Completed Was Problem List Reviewed/Reconciled?: Yes Hospital Course Hospital Course Hospital course: Reason for hospitalization: Acute hypercapnic respiratory failure Zay Reyes is 44 yr male with PMH of obesity, hypertension, type 2 diabetes, schizophrenia, obstructive sleep apnea on 2 L oxygen and BiPAP, recurrent admissions due to respiratory failure presented to ED on 12/09/24 with chief complaint of shortness of breath. He was recently discharged from hospital on 12/05/2024 after being intubated due to acute hypoxic respiratory failure secondary to poor compliance with CPAP machine. Patient was admitted again for acute hypercapnic respiratory failure secondary to BHAVESH/OHS and noncompliance with machine. Patient was started on BiPAP due to somnolance and preliminary ABGs showing respiratory acidosis pH 7.28, pCO2 70. Chest x-ray showed left base pneumonia however he had just completed a course of Tamiflu and amoxicillin after being discharged on 12/05. Therefore, no new antibiotics were started. He was started on IV Lasix for diuresis and BiPAP was left on throughout the night with improvement of acidosis on repeat in ABGs following day. Patient was successfully taken off BiPAP and transitioned to nasal cannula without any shortness of breath or desaturating. Patient was extensively counseled on machine compliance. He stated that the CPAP machine is available for him but the mask piece is missing. Multiple attempts were made to contact family, but unsuccessful. Patient expressed understanding of importance of obtaining the mask piece in order to avoid recurrent readmissions. Patient is now in stable condition and ready for discharge. Recommendations were given as below. Discharge Recommendations: Please continue all medications as above. Follow up with your PCP in a week. Obtain mask piece for CPAP machine and use every night. Hospital Diagnoses: #Acute hypercapnic respiratory failure 2/2 #BHAVESH/OHS #Respiratory acidosis with metabolic compensation-resolved #COPD exacerbation #CHF exacerbation, HFpEF 65-70% #Hypokalemia #Hx HTN #Hx [id number] type 2 diabetes #Obesity class III The patient's management plan was discussed with my attending physician Dr. Andrews and senior Dr. Menard. Eli Ashton MD, PGY-1 Status at Discharge Overall status at discharge: patient is back to baseline Time Spent with Patient Time attestation: Total time spent providing and/or coordinating discharge services: Time spent: Greater than 30 minutes Exam Vital Signs Temp Pulse Resp BP Pulse Ox O2 Del Method O2 Flow Rate 98.1 F 85 22 H 134/81 H 95 Nasal Cannula 2 12/11/24 12:00 12/11/24 12:48 12/11/24 12:48 12/11/24 12:00 12/11/24 12:48 12/11/24 12:00 12/11/24 12:48 FiO2 60 12/11/24 08:00 Narrative Exam General: Obese adult male, no major distress, laying comfortably on NC Eyes: Pupils are equal and reactive to light bilaterally HENT: Atraumatic, normocephalic. No JVD noted. Mucosa moist. Cardiovascular: Normal S1 and S2. Regular rate and rhythm. Respiratory: On BiPAP, difficult to auscultate due to body habitus Abdomen: Soft, nontender, not distended, normal bowel sounds. Skin: Warm to touch, dry, no rashes noted Musculoskeletal: No gross injuries. Able to move all 4 extremities. No lower extremity edema Neuro: Alert and oriented x3. No focal neuro deficits. Psych: Normal affect and mood Discharge Plan Plan Patient Disposition: HOME (Self Care) Disposition Comment: Tele Patient condition on transfer: Stable Care Plan Goals: Please follow up with your primary care provider within 1 week of discharge. Prescriptions/Referrals Prescriptions/Med Rec: Continued haloperidol 10 mg tablet 10 mg PO BID Patient Comments: TAKE 1 TABLET BY MOUTH TWICE A DAY metformin 500 mg tablet 500 mg PO BID Patient Comments: TAKE 1 TABLET BY MOUTH TWICE A DAY WITH FOOD fluticasone propionate 44 mcg/actuation HFA aerosol inhaler 44 mcg INHALATION PRN PRN (Reason: sob) aripiprazole 2 mg tablet 2 mg PO BID Patient Comments: TAKE 1 TABLET BY MOUTH EVERY DAY FOR 7 DAYS THEN INCREASE TO 2 TABLETS DAILY cholecalciferol (vitamin D3) 50 mcg (2,000 unit) capsule 50 mcg PO DAILY Patient Comments: TAKE 1 TABLET ORALLY EVERY DAY olanzapine 10 mg tablet 10 mg PO HS Patient Comments: TAKE 1 TABLET BY MOUTH EVERY DAY IN THE EVENING carvedilol 6.25 mg tablet 6.25 mg PO BID gemfibrozil 600 mg tablet 600 mg PO BID Patient Comments: TAKE 1 TABLET BY MOUTH TWICE A DAY 30 MINUTES BEFORE MORNING AND EVENING MEAL loratadine 10 mg tablet 10 mg PO QDAY Patient Comments: TAKE 1 TABLET BY MOUTH EVERY DAY Rybelsus 3 mg tablet 3 mg PO QDAY 30 Days Qty: 30 1RF (DME) FreeStyle Caroline 3 Sensor Device See Rx Instructions .Route Qty: 1 0RF Rx Instructions: As directed Discontinued amoxicillin 500 mg tablet 1,000 mg PO TID 4 Days Qty: 24 0RF [facility]SHELLIE Hemphill [Primary Care Provider] - Patient/Caregiver Discharge Instructions Discharge Activity: activity as tolerated and wear oxygen at night Other Discharge Activity Instructions:: Please continue all medications as above. Follow up with your PCP in a week. Obtain mask piece for CPAP machine and use every night. Education Materials: What Is Pneumonia?, Visiting a Sleep Clinic, ED Pneumonia (Adult) Print Language: Ghanaian Stand Alone Forms: [place] Award Info., Patient Portal Info Letter Discharge Order Discharge Orders: Discharge (Routine); Ordered 12/11/24 Ordered By: Judy Menard Quality Discharge Quality Measures VTE prophylaxis MD Attestestation MD Attestation Face to face evaluation was performed by me. I have personally seen and examined the patient. I discussed the assessment and plan with the entire medicine team. I reviewed available medical records, imaging studies, laboratory results. I agree with the above subjective data, objective findings, assessment and plan except as corrected by me or noted below #Acute hypercapnic respiratory failure 2/2 #BHAVESH/OHS #Respiratory acidosis with metabolic compensation-resolved #COPD exacerbation Stable for dc fu with PCP marquis stay compliant with BiPAP
== END 2024-12-11 16:01 | disposition home or self-care (01) | DRG 133 ==
LOC: SERX 10:30 → SERHOLD 10:54 → S2NX 15:40
PROVIDERS: Student in an Organized Health Care Education/Training Program; Admitting Provider Student in an Organized Health Care Education/Training Program; Emergency Provider Emergency Medicine; PCP Nurse Practitioner Family; Visit Provider Internal Medicine
DX: J96.02 Acute respiratory failure with hypercapnia (principal); J44.1 Chronic obstructive pulmonary disease with (acute) exacerbation; J96.01 Acute respiratory failure with hypoxia; I11.0 Hypertensive heart disease with heart failure; I50.33 Acute on chronic diastolic (congestive) heart failure; E11.9 Type 2 diabetes mellitus without complications; E66.2 Morbid (severe) obesity with alveolar hypoventilation; Z68.43 Body mass index [BMI] 50.0-59.9, adult; E87.29 Other acidosis; F20.9 Schizophrenia, unspecified; E87.6 Hypokalemia; T50.1X5A Adverse effect of loop [high-ceiling] diuretics, initial encounter; Z87.891 Personal history of nicotine dependence; Z87.01 Personal history of pneumonia (recurrent); Z91.198 Patient's noncompliance with other medical treatment and regimen for other reason; Z79.84 Long term (current) use of oral hypoglycemic drugs; Z79.899 Other long term (current) drug therapy; Y92.230 Patient room in hospital as the place of occurrence of the external cause
CPT/HCPCS: 36415; 36600; 71045; 80053; 82803; 83735; 85025; 87081; 87811; 94640; 94660; 96374; 96375; 99291; A9270; J1650; J1940; J2919

== ENCOUNTER 2025-03-07 15:04 | Inpatient (IN) | payer MEDICAID, SELFPAY ==
[2025-03-07] VITALS (31 sets, daily range): BP systolic 133–182; BP diastolic 70–98; PULSE 66–130; RESP 0–32; TEMP 36.8–37; O2SAT 91–99; BMI 53.8
--- NOTE | 2025-03-07 15:27 | EKG_ITS ---
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
--- NOTE | 2025-03-07 15:27 | XR_ITS ---
Examination: AP chest single view Technique: AP portable semiupright chest single view. Exam date and time: March 07, 2025 1658 hours Comparison December 09, 2024 INDICATION: Chest pain shortness of breath. FINDINGS: Mild heart failure. Enlarged cardiac contour, mild.. Pulmonary vascular congestion. Early perihilar edema. Consider superimposed pneumonia at the bases IMPRESSION: Mild heart failure. Suspicious for early pneumonia at the bases.
--- NOTE | 2025-03-07 15:28 | PD.EDSOB ---
ED SOB =RME/HPI General Chief Complaint: Altered Mental Status Stated Complaint: SOB Time Seen by Provider: 03/07/25 15:17 Arrival date/time: 03/07/25 15:04 RME / HPI RME / HPI Narrative: 44-year-old male patient with significant history of obstructive sleep apnea, on oxygen 30/05, was brought in by EMS for drowsiness, hypoxia, and not feeling well. Patient told me that his been sick for the last 1 week since his CPAP is not working. Currently on 4 L satting 94%. On initial evaluation patient is arousable however very drowsy. Denies any chest pain denies any cough denies any other complaints. Related Data Home Medications ?Medication ?Instructions ?Recorded ?Confirmed carvedilol 6.25 mg tablet 6.25 mg PO BID 02/15/24 12/09/24 gemfibrozil 600 mg tablet 600 mg PO BID 02/15/24 12/09/24 loratadine 10 mg tablet 10 mg PO QDAY 02/15/24 12/09/24 aripiprazole 2 mg tablet 2 mg PO BID 12/03/24 12/03/24 cholecalciferol (vitamin D3) 50 50 mcg PO DAILY 12/03/24 12/09/24 mcg (2,000 unit) capsule fluticasone propionate 44 44 mcg inhalation PRN PRN sob 12/03/24 12/09/24 mcg/actuation HFA aerosol inhaler haloperidol 10 mg tablet 10 mg PO BID 12/03/24 12/09/24 metformin 500 mg tablet 500 mg PO BID 12/03/24 12/09/24 olanzapine 10 mg tablet 10 mg PO HS 12/04/24 12/04/24 Previous Rx's ?Medication ?Instructions ?Recorded blood-glucose sensor (FreeStyle #1 ea 10/30/24 Caroline 3 Sensor device) semaglutide 3 mg tablet (Rybelsus) 3 mg PO QDAY 30 days #30 tabs 10/30/24 Allergies Allergy/AdvReac Type Severity Reaction Status Date / Time No Known Allergies Allergy Unverified 02/16/24 08:13 Review of Systems Review of Systems Narrative Review of Systems: Review of system reviewed and within normal limits except mentioned in HPI ED Exam Narrative Physical exam: VITAL SIGNS: Reviewed. GENERAL APPEARANCE: Alert and interactive, follows commands, no acute distress, morbidly obese, drowsy HEAD AND FACE: Non-traumatic. ENT: PERRL, pink conjunctivitis, eyelid no trauma, Mucous membrane moist. NECK: Supple, nontender, no nuchal rigidity. CHEST: No tenderness, no crepitus, no paradoxical movement, no retractions. LUNGS: Clear, well ventilated, symmetric, no rales, no wheezing, no ronchi, no stridor, good breath sounds bilaterally. HEART: Regular rate, regular rhythm, no murmur, no gallops. ABDOMEN: Soft, positive bowel sounds, nondistended, no guarding, nontender, no rebound, no masses, RECTAL: Deferred. GENITAL: Deferred. NEUROLOGICAL: Gross motor function intact sensory function intact, Appropriate for age. MUSCULOSKELETAL: low back nontender, full range of motion. EXTREMITIES: Nontender, full range of motion. SKIN: Color pink, dry, no rash, no lacerations, no abrasions, no contusions. LYMPHATICS: Deferred. Course Quality Measures none Orders Category Date Time Status COVID-19 Screening Questionnaire NOW Care 03/07/25 18:01 Active Decision to Admit X1 Care 03/07/25 18:00 Active EKG (ED ONLY) *Do not use* NOW Care 03/07/25 15:27 Completed EKG (ED Only) Stat Exams 03/07/25 15:27 Draft XR chest 1V Stat Exams 03/07/25 15:27 Completed Arterial Blood Gas Stat Lab 03/07/25 15:50 Completed B-Type Natriuretic Peptide Stat Lab 03/07/25 16:56 Completed Blood Culture (Lab) Stat Lab 03/07/25 16:50 Received C-Reactive Protein Stat Lab 03/07/25 16:56 Completed CBC Stat Lab 03/07/25 16:56 Completed Comprehensive Metabolic Panel Stat Lab 03/07/25 16:56 Completed Lactate (Lactic Acid) Stat Lab 03/07/25 16:56 Completed Partial Thromboplastin Time Stat Lab 03/07/25 16:56 Completed Procalcitonin Stat Lab 03/07/25 16:56 Completed Prothrombin Time with INR Stat Lab 03/07/25 16:56 Completed Troponin I Stat Lab 03/07/25 16:56 Completed Azithromycin Inj [Zithromax Inj] 500 mg Med 03/07/25 17:34 Active Sodium Chloride 0.9% 250 ml [Ns] 250 ml IV X1 cefTRIAXone/D5w 1gm IV premix [Rocephin/D5w 1gm IV Med 03/07/25 17:33 Active premix] 1 gm in 50 ml IV X1 BiPAP / CPAP NOW RT 03/07/25 15:37 Active Vital Signs Vital signs: Vital Signs Temperature 98.2 F 03/07/25 15:08 Pulse Rate 130 H 03/07/25 15:08 Respiratory Rate 24 H 03/07/25 15:08 Blood Pressure 153/83 H 03/07/25 15:08 Pulse Oximetry (%) 91 L 03/07/25 15:08 Oxygen Delivery Method Nasal Cannula 03/07/25 15:08 Oxygen Flow Rate 4 03/07/25 15:08 Shortness of Breath / Dyspnea [facility] Narrative [facility] Narrative:: 44-year-old male patient with significant history of obstructive sleep apnea, on oxygen 30/05, was brought in by EMS for drowsiness, hypoxia, and not feeling well. Patient told me that his been sick for the last 1 week since his CPAP is not working. Currently on 4 L satting 94%. On initial evaluation patient is arousable however very drowsy. Denies any chest pain denies any cough denies any other complaints. ABG showed pH of 7.3, PCO2 of 65. PO2 of 72 bicarb of 32 CBC no leukocytosis there is of the labs unremarkable chest x-ray showed beginning pneumonia EKG showed sinus rhythm, ventricular rate of 74 bpm, no ST segment elevation depression noted. Patient was placed on CPAP right away currently sitting 94% on room air patient is more alert than earlier Case discussed with hospitalist, who admitted the patient. Patient data External records reviewed:: None Clinical information provided by:: patient Social determinants that could affect healthcare access:: none Patient has the following chronic illnesses:: Obstructive sleep apnea, methamphetamine abuse obesity hypertension How is presenting disease/condition affected by chronic disease/condition?: exacerbated by Evaluation data The following diagnostics were reviewed and interpreted by me:: lab results, radiology exam(s) and EKG tracing(s) Lab and/or radiology exams considered but not ordered:: None Interpretation Summary: See results in MDM Medications / Prescriptions Medications or Prescriptions considered but not ordered:: None Medication administrations:: Medication Administration History Ceftriaxone Sodium/Dextrose (Rocephin/D5w 1gm Iv Premix) 1 gm in 50 mls @ 100 mls/hr IV X1 ONE Stop: 03/07/25 18:02 Azithromycin 500 mg/ Sodium (Chloride) 250 mls @ 250 mls/hr IV X1 ONE Stop: 03/07/25 18:33 Ceftriaxone and Zithromax IV Consultations Consultation(s) initiated? (list below): No Diagnosis Shortness of Breath Differential Diagnosis: acute exacerbation of chronic obstructive airways disease, community acquired pneumonia and other (Obstructive sleep apnea) Most likely diagnosis given after review of the tests above:: Hypercapnia secondary to obstructive sleep apnea Admission Indicated Admission indicated?: indicated Admission Request Was there a request for admission?: Yes Admission Attestation Admission request attestation: Discussed case with [Dr Estevez] from Hospitalist service regarding admission. Discussed patients ED course, exam findings, labs, and radiology results. The Hospitalist [agrees] to accept the patient for admission. Disposition Plan Disposition Plan: Admit Discharge Plan Prescriptions/Referrals Prescriptions/Med Rec: No Action haloperidol 10 mg tablet 10 mg PO BID Patient Comments: TAKE 1 TABLET BY MOUTH TWICE A DAY metformin 500 mg tablet 500 mg PO BID Patient Comments: TAKE 1 TABLET BY MOUTH TWICE A DAY WITH FOOD fluticasone propionate 44 mcg/actuation HFA aerosol inhaler 44 mcg INHALATION PRN PRN (Reason: sob) aripiprazole 2 mg tablet 2 mg PO BID Patient Comments: TAKE 1 TABLET BY MOUTH EVERY DAY FOR 7 DAYS THEN INCREASE TO 2 TABLETS DAILY cholecalciferol (vitamin D3) 50 mcg (2,000 unit) capsule 50 mcg PO DAILY Patient Comments: TAKE 1 TABLET ORALLY EVERY DAY olanzapine 10 mg tablet 10 mg PO HS Patient Comments: TAKE 1 TABLET BY MOUTH EVERY DAY IN THE EVENING carvedilol 6.25 mg tablet 6.25 mg PO BID gemfibrozil 600 mg tablet 600 mg PO BID Patient Comments: TAKE 1 TABLET BY MOUTH TWICE A DAY 30 MINUTES BEFORE MORNING AND EVENING MEAL loratadine 10 mg tablet 10 mg PO QDAY Patient Comments: TAKE 1 TABLET BY MOUTH EVERY DAY Rybelsus 3 mg tablet 3 mg PO QDAY 30 Days Qty: 30 1RF (DME) FreeStyle Caroline 3 Sensor Device See Rx Instructions .Route Qty: 1 0RF Rx Instructions: As directed Referrals: Rod Hernandez PA-C [Primary Care Provider] - In 1 week Problem List Clinical Impression: Acute respiratory failure with hypoxia and hypercapnia Patient/Caregiver Discharge Instructions Print Language: Chinese
--- NOTE | 2025-03-07 15:40 | PC.NURSE ---
pt came in with ems due to sob and very sleepy. pt is unable to stay awake when spoke to. doctor aware. pt does answer questions and is a&ox4 but very sleepy. pt snoring. pa will place pt on bipap. pt placed on monitor pulse ox.
[2025-03-07 16:03] LABS: Base Excess 3 (-3-3); HCO3 32 mEq/L (20-26); Inspired O2, VO2 Liters 4 L/min; O2 Saturation 94 % (91-98); PCO2 65 mmHg (32.0-48.0); PO2 72 mmHg (83-108)
[2025-03-07 16:06] LABS: Allen Test Performed/OK; Puncture Site Left Radial
[2025-03-07 17:08] LABS: Lactate (Lactic Acid) 1.1 mMol/L (0.4-2.0)
[2025-03-07 17:13] LABS: Basophils # (Auto) 0.1 Thou/mm3 (0.0-0.2); Basophils % (Auto) 1 % (0-2.5); Eosinophils # (Auto) 0.5 Thou/mm3 (0.0-0.5); Eosinophils % (Auto) 5 % (0-10); Hematocrit 46.3 % (41.0-53.0); Hemoglobin 14.8 g/dL (13.5-16.0); Immature Granulocytes % (Auto) 1 % (0-0); Immature Granulocytes Auto 0.05 Thou/mm3 (0.00-0.00); Lymphocytes # (Auto) 1.4 Thou/mm3 (1.0-4.8); Lymphocytes % (Auto) 14 % (10-50); Mean Corpuscular Hemoglobin 27.6 pg (25.0-35.0); Mean Corpuscular Volume 86 fL (80-100); Monocytes # (Auto) 0.7 Thou/mm3 (0.0-0.8); Monocytes % (Auto) 7 % (0-12); Neutrophils # (Auto) 7.3 Thou/mm3 (1.8-7.7); Neutrophils % (Auto) 73 % (37-80); Nucleated Red Blood Cell % 0 /100 WBC (0); Platelet Count 192 Thou/mm3 (140-440); RDW Standard Deviation 50.2 fL (35.1-43.9); Red Blood Count 5.36 Miln/mm3 (4.50-5.90)
[2025-03-07 17:23] LABS: Partial Thromboplastin Time 28.7 Seconds (22.0-36.0); Prothrombin Time 11.3 Seconds (9.0-12.2)
[2025-03-07 17:25] LABS: B-Type Natriuretic Peptide < 20 pg/mL (0-100)
[2025-03-07 17:35] LABS: Alanine Aminotransferase 84 U/L (10-49); Albumin, Serum 4.3 gm/dL (3.5-5.0); Albumin/Globulin Ratio 1.3 (1.2-2.2); Alkaline Phosphatase 104 U/L (46-116); Anion Gap 9 (7-16); Aspartate Amino Transferase 42 U/L (0-34); BUN/Creatinine Ratio 18 Ratio (12-20); Bilirubin,Total 0.3 mg/dL (0.3-1.2); Blood Urea Nitrogen 16 mg/dL (9-23); C-Reactive Protein 1.3 mg/dL (0.0-0.9); Calcium 9.1 mg/dL (8.3-10.6); Calcium (Corrected) 9.1 mg/dL (8.5-10.1); Chloride 102 mMol/L (98-107); Creatinine (Component) 0.9 mg/dL (0.6-1.3); Estimated Creatinine Clearance 151.2 mL/min (>60); Globulin 3.3 gm/dL (2.3-3.5); Glucose 108 mg/dL (74-106); Osmolality,Calculated 285 (275-295); Potassium 4.1 mMol/L (3.4-5.1); Sodium 142 mMol/L (136-145); Total Protein 7.6 gm/dL (5.7-8.2); Troponin I < 0.002 ng/mL (0.0-0.045); eGFR > 60 See Note
[2025-03-07] MEDS: cefTRIAXone/D5w 1gm IV premix 1 GM/50 ML BAG IV (18:13)
[2025-03-07] MEDS: ETOMIDATE INJ 2 MG/ML VIAL 10 ML 20 MG IVP (18:35)
[2025-03-07] MEDS: ROCURONIUM INJ 10 MG/ML VIAL 10 ML 50 MG IV (18:36)
--- NOTE | 2025-03-07 18:38 | PC.NURSE ---
pt moved to rm 1 for intubation. pt is becoming more altered and fall asleep. and more diff to arouse. doctor and residents at bedside.
[2025-03-07] MEDS: ALBUTEROL/IPRATROPIUM (Duoneb) RT SOL 3 ML NEBU INH ×2 (18:45→23:05)
--- NOTE | 2025-03-07 18:46 | XR_ITS ---
Examination: AP chest single view TECHNIQUE: AP portable supine chest single view Exam date and time: March 07, 2025, 190 hours Comparison March 07, [id number] hours INDICATIONS: Hypoxic respiratory failure postintubation posterior orogastric tube placement FINDINGS: Prominent pneumonia left base Mild heart failure. Prominent vascular congestion. Endotracheal tube tip 5.6 cm above Grace. Orogastric tube in the stomach, satisfactory position IMPRESSION: Prominent pneumonia left base Mild heart failure Orogastric tube tip 5.6 cm above Grace.
--- NOTE | 2025-03-07 18:49 | PD.RESPROC ---
Procedures Procedure Date / Time 03/07/25 0359 Intubation Indication(s): acute Resp Failure and inability to protect airway Informed consent obtained: from patient and implied Time out done, and the following verified: correct patient, side and site, procedure, patient position and implants and/or equipment Sedative: etomidate Mg given: 20 Paralytic: rocuronium Mg given: 50 Laryngoscope: Caterina ET tube size: 7.5 ET tube uncuffed: Yes Tube secured depth (cm): 22 Tube secured location: teeth Tube placement confirmation: visualized tube passing through cords, equal breath sounds bilaterally, no breath sounds over epigastrium and confirmation by capnometry Patient tolerated procedure: well EBL(ml): 1 Intubation complications: none Additional comments: Patient presented with waxing/waning mentation, apneic breathing was noted. Decision was made to intubate the patient for airway protection. Procedure was supervised and completed by attending Dr. Zheng without any acute complications noted. Gurpreet Espinosa, PGY-1
[2025-03-07] MEDS: AZITHROMYCIN INJ 500 MG in SODIUM CHLORIDE 0.9% 250 ML 250 ML 250 MG IV (19:20)
[2025-03-07] MEDS: PROPOFOL 1,000 MG IVPB 1,000 MG/100 ML VIAL 4.681 MG IV (19:23)
[2025-03-07 19:30] LABS: Ammonia 36 uMol/L (11-32)
[2025-03-07 19:32] LABS: Base Excess 3 (-3-3); HCO3 32 mEq/L (20-26); O2 Saturation 99 % (91-98); PCO2 72 mmHg (32.0-48.0); PO2 135 mmHg (83-108); pH, Arterial 7.26 (7.35-7.45)
[2025-03-07 19:33] LABS: Allen Test Not Performed; Inspired Oxygen, FIO2 100 %; Puncture Site Left Radial
--- NOTE | 2025-03-07 19:41 | PD.RESHP ---
Documentation for date of: 03/07/25 HPI History of Present Illness Chief complaint: Acute on chronic hypoxic respiratory failure History of present illness: Patient is a 44-year-old male with past medical history of morbid obesity, schizophrenia, hypertension, type 2 diabetes, BHAVESH on CPAP, obesity hypoventilation on 2 L baseline of O2 who came to [facility] brought in by ambulance after being found somnolent at home. History obtained primarily through chart review due to the fact the patient was already intubated. According to the chart patient was drowsy, hypoxic and not feeling well and that he had been feeling sick for 1 week prior. He was placed upon BiPAP in the emergency department and when history was being obtained by floor team patient became obtunded so he was intubated for protection of airway. Patient has been hospitalized over the previous 1 year with similar complaints of respiratory distress and failure. Social history: Patient is a resident of the nearby [facility] and according to the chart lives with his mother, previous history reveals that there may have been methamphetamine, opioid, alcohol and tobacco use Allergies: No known drug allergies Surgical history: Unknown Family history: Unknown Review of Systems Review of Systems Systems Reviewed: All systems reviewed, normal except as documented Exam Vital Signs Temp Pulse Resp BP Pulse Ox O2 Del Method O2 Flow Rate 98.3 F 90 18 174/88 H 97 Mechanical Ventilation 10 03/07/25 18:10 03/07/25 19:30 03/07/25 19:30 03/07/25 19:30 03/07/25 19:30 03/07/25 19:30 03/07/25 18:10 FiO2 100 03/07/25 19:07 Narrative Exam GENERAL: Patient is currently sedated upon mechanical ventilation. EYES: EOMI. Anicteric. HEENT: Moist mucous membranes. No scleral icterus. No cervical lymphadenopathy. Blood in the right nares following NG tube placement LUNGS: Some rhonchus breath sounds. No accessory muscle use. CARDIOVASCULAR: Regular rate and rhythm. No murmur. No JVD. ABDOMEN: Soft, non-tender and non-distended. No palpable masses. EXTREMITIES: All 4 extremeties intact. Mild 1+ edema. Nontender. SKIN: No rashes or lesions. Warm. NEUROLOGIC: No focal neurological deficits. CN II-XII grossly intact, but not individually tested. PSYCHIATRIC: Unable to assess Results: Labs 03/07/25 16:56 03/07/25 16:56 Labs: Short CBC 03/07/25 Range/Units 16:56 WBC 10.0 (3.8-10.6) Thou/mm3 Hgb 14.8 (13.5-16.0) g/dL Hct 46.3 (41.0-53.0) % Plt Count 192 (140-440) Thou/mm3 BMP 03/07/25 16:56 Sodium 142 Potassium 4.1 Chloride 102 Carbon Dioxide 31.0 BUN 16 Creatinine 0.9 Glucose 108 H Calcium 9.1 Cardiac Enzymes 03/07/25 Range/Units 16:56 Troponin I < 0.002 (0.0-0.045) ng/mL Liver Function 03/07/25 Range/Units 16:56 Total Bilirubin 0.3 (0.3-1.2) mg/dL AST 42 H (0-34) U/L ALT 84 H (10-49) U/L Alkaline Phosphatase 104 (46-116) U/L Albumin 4.3 (3.5-5.0) gm/dL ABG Interpretation ABG results: 03/07/25 03/07/25 15:50 19:27 ABG pH 7.30 L 7.26 L ABG pCO2 65 H 72 H* ABG pO2 72 L 135 H D ABG HCO3 32 H 32 H ABG O2 Saturation 94 99 H ABG Base Excess 3 3 Quality Measures Quality Measures none Medications Home Medications and Allergies Home Medications ?Medication ?Instructions ?Recorded ?Confirmed ?Type carvedilol 6.25 mg tablet 6.25 mg PO BID 02/15/24 12/09/24 History gemfibrozil 600 mg tablet 600 mg PO BID 02/15/24 12/09/24 History loratadine 10 mg tablet 10 mg PO QDAY 02/15/24 12/09/24 History aripiprazole 2 mg tablet 2 mg PO BID 12/03/24 12/03/24 History cholecalciferol (vitamin D3) 50 50 mcg PO DAILY 12/03/24 12/09/24 History mcg (2,000 unit) capsule fluticasone propionate 44 44 mcg inhalation PRN PRN sob 12/03/24 12/09/24 History mcg/actuation HFA aerosol inhaler haloperidol 10 mg tablet 10 mg PO BID 12/03/24 12/09/24 History metformin 500 mg tablet 500 mg PO BID 12/03/24 12/09/24 History olanzapine 10 mg tablet 10 mg PO HS 12/04/24 12/04/24 History Allergies Allergy/AdvReac Type Severity Reaction Status Date / Time No Known Allergies Allergy Unverified 02/16/24 08:13 Visit Medications Acetaminophen (Acetaminophen 325 Mg Tablet) 650 mg PO Q6H PRN PRN Reason: Fever >101.5 Stop: 04/06/25 19:15 Albuterol/Ipratropium (Albuterol/Ipratropium (Duoneb) Rt Katarina 3 Ml Nebu) 3 ml INH Q4HRRT JEANNE Stop: 04/06/25 22:59 Dextrose (Dextrose 50%-Water Inj 50 Ml Syringe) 25 ml IV Q15MIN PRN PRN Reason: BG 50-70 responsive npo pt Stop: 04/06/25 19:35 Dextrose (Dextrose 50%-Water Inj 50 Ml Syringe) 50 ml IV Q15MIN PRN PRN Reason: BG <50 OR BG <70 & pt unresponsive Stop: 04/06/25 19:35 Enoxaparin Sodium (Enoxaparin Sod Inj 40 Mg/0.4 Ml Syringe) 40 mg SC QDAY JEANNE Stop: 03/22/25 08:59 Glucagon (Glucagon Inj 1 Mg Vial) 1 mg IM Q15MIN PRN PRN Reason: BG <70, and no IV access Propofol (Diprivan Ivpb) 1,000 mg in 100 mls @ 4.681 mls/hr IV .[id number] PRN; Protocol PRN Reason: PER PROTOCOL Stop: 04/06/25 19:00 Last Admin: 03/07/25 19:23 Dose: 5 mcg/kg/min, 4.681 mls/hr Fentanyl Citrate (Sublimaze Inj 2,500 Mcg/250 Ml Bag) 2,500 mcg in 250 mls @ 2.5 mls/hr IV .Q24H PRN; Protocol PRN Reason: PER PROTOCOL Stop: 03/12/25 19:01 Ampicillin Sodium/Sulbactam (Sodium 3 gm/ Sodium Chloride) 100 mls @ 200 mls/hr IV Q6HR JEANNE Stop: 03/14/25 19:44 Insulin Human Lispro (Insulin Lispro (Admelog) 1 Unit/0.01 Ml Unit) 0 unit SC Q6H [facility]; Protocol Stop: 04/06/25 19:44 Ondansetron HCl (Ondansetron Inj 2 Mg/Ml Inj 2 Ml) 4 mg IV Q6H PRN; Protocol PRN Reason: NAUSEA OR VOMITING Stop: 04/06/25 19:15 Pantoprazole Sodium (Pantoprazole Inj 40 Mg Vial) 40 mg IVP QDAY [facility] Stop: 04/06/25 19:29 Sennosides (Senna Tablet) 1 tab PO QDAY [facility]; Protocol Stop: 04/07/25 08:59 Discontinued Medications Albuterol/Ipratropium (Albuterol/Ipratropium (Duoneb) Rt Katarina 3 Ml Nebu) 3 ml INH Q6HRRT [facility] Stop: 04/07/25 00:59 Etomidate (Etomidate Inj 2 Mg/Ml Vial 10 Ml) 20 mg IVP X1 ONE Stop: 03/07/25 18:22 Last Admin: 03/07/25 18:35 Dose: 20 mg Ceftriaxone Sodium/Dextrose (Rocephin/D5w 1gm Iv Premix) 1 gm in 50 mls @ 100 mls/hr IV X1 ONE Stop: 03/07/25 18:02 Last Admin: 03/07/25 18:13 Dose: 100 mls/hr Azithromycin 500 mg/ Sodium (Chloride) 250 mls @ 250 mls/hr IV X1 ONE Stop: 03/07/25 18:33 Last Admin: 03/07/25 19:20 Dose: 250 mls/hr Methylprednisolone Sodium Succinate (Methylprednisolone Sod Succ 62.5 Mg/Ml 2ml Vial) 125 mg IV X1 ONE Stop: 03/07/25 19:31 Rocuronium [place] (Rocuronium Inj 10 Mg/Ml Vial 10 Ml) 50 mg IV X1 ONE Stop: 03/07/25 18:22 Last Admin: 03/07/25 18:36 Dose: 50 mg Assessment & Plan Plan Neurology Problem: Currently sedated on propofol and fentanyl. RASS score -2. Prior to sedation patient was obtunded. History of schizophrenia with 3 recent prescriptions for Abilify, Haldol, and Zyprexa. Urine drug screen remains pending currently. ABG reveals a pH of 7.30 and CO2 of 65. Current chest x-ray reveals early pneumonia but patient is afebrile without a's productive cough or leukocytosis. Will give Unasyn for antibiotic coverage in the event that patient had aspiration event DDx: May be secondary to polypharmacy versus COPD exacerbation versus obesity hypoventilation syndrome Diagnostic Test: ABG in the a.m. along with chest x-ray Cardiovascular Problem: History of hypertension Will resume Coreg 6.25 twice daily Respiratory Problem: Acute on chronic hypoxic respiratory failure currently on mechanical ventilation DDx: May be secondary to obesity hypoventilation versus polypharmacy versus COPD exacerbation with hypercapnia Diagnostic Test: pH is appropriate with very mild hypercapnia. On 2 L at baseline. Failed BiPAP. Current vent settings: RR 22, tidal volume 400, PEEP of 8 and FiO2 100%. Will titrate down. Will give a dose of Solu- Medrol 125 mg and DuoNebs every 4 hourly. Chest x-ray shows vascular congestion as well, patient has 1+ pedal edema. We will start Lasix 40 IV x 1 and obtain an echocardiogram. GI and F/E/N Problem: Protonix 40 IV daily. Currently n.p.o.. Mild transaminitis with AST of 42 and ALT 4. Mild hyperammonemia with 36 Renal Problem: None Heme Problem: None Endo Problem: Type 2 diabetes. Sliding scale insulin initiated with every 6 hour checks. A1c in the a.m. ID Problem: Community-acquired pneumonia DDx: Will cover with Unasyn for anaerobic coverage in the event patient had aspiration event DVT prophylaxis: Lovenox 40 subcutaneous daily GI prophylaxis: Protonix 40 IV daily Diet: N.p.o. Harden: Not indicated Lines: Peripheral lines Drips: Propofol and fentanyl Vent: Tidal volume 400, RR 22, FiO2 100%, PEEP 8.0 CODE STATUS: Full code Reason for hospitalization acute on chronic hypoxic respiratory failure secondary to COPD exacerbation versus community-acquired pneumonia versus encephalopathy secondary to polypharmacy and obesity hypoventilation syndrome Plan of care discussed with supervising attending Dr. Aislinn Flynn M.D. PGY-3 Attending Provider Attestation/Addendum I attest that I was physically present for the evaluation, physical examination, lab and imaging review of the patient with the residents. I discussed the case with the residents and agree with the findings and plans of care as documented above. Patient is a 44 years old male with past medical history of morbid obesity, schizophrenia, hypertension, diabetes mellitus, BHAVESH on CPAP, obesity hypoventilation syndrome, home oxygen who presented to the ED with complaint of increased somnolence. Patient is already intubated at the time of examination, as per the chart review, patient was initially drowsy, hypoxic in the ED. He was placed on BiPAP but at the same time he became obtunded. Patient was then intubated for protection of airway. His initial vitals were blood pressure of 153/83, pulse 130, respiratory rate 24. Lab results show AST of 42, ALT 84, ammonia 36, CRP 1.3. Initial ABG shows pH of 7.3, pCO2 65, PO272. Follow-up ABG after intubation shows pH of 7.26, pCO2 72, PO2 135. Patient has bicarbonate of 31 as per CHEM panel. Initial chest x-ray shows mild congestion. Chest x-ray after intubation shows prominent pneumonia on the left base with vascular congestion. Will continue with mechanical ventilation, will titrate down the FiO2 as tolerated. Started on Unasyn, as there is new finding of pneumonia on chest x-ray after intubation. Patient also has congestion on chest x-ray, pedal edema, we will give him Lasix 40 x 1 and obtain an echocardiography. Patient also received Solu-Medrol 125 with concern for COPD exacerbation with history of remote smoking. Cultures have been ordered. Lactate is within normal limits. Patient was obtunded before the intubation, acute encephalopathy likely secondary to hypercapnia, may have contribution from polypharmacy. We will hold off on his home antipsychotics. Noted to have mild transaminitis, likely reactive, we will monitor closely. Resumed Coreg for hypertension and insulin regimen for diabetes. Devi Tao MD
[2025-03-07] MEDS: fentaNYL 2,500 MCG/250 ML BAG 2,500 MCG/250 ML BAG IV (19:42)
[2025-03-07] MEDS: PANTOPRAZOLE INJ 40 MG VIAL IVP (19:52)
[2025-03-07] MEDS: MethylPREDNISolone SOD SUCC 62.5 MG/ML 2ML VIAL 125 MG IV (19:52)
[2025-03-07] MEDS: AMPICILLIN/SULBAC INJ 3 GM in SODIUM CHLORIDE 0.9% 100 ML IV (20:38)
[2025-03-07] MEDS: FUROSEMIDE INJ 10 MG/ML 4ML VIAL 40 MG IVP (21:06)
[2025-03-07 22:24] LABS: Amphetamine/Methamp Scrn,U Negative (Negative); Barbiturate Screen,Urine Negative (Negative); Benzodiazepines Screen,Urine Negative (Negative); Benzoylecgonine Screen, Ur Negative (Negative); Opiate Screen,Urine Negative (Negative); THC Screen,Urine Negative (Negative)
[2025-03-07 22:26] LABS: Base Excess 3 (-3-3); HCO3 32 mEq/L (20-26); Inspired Oxygen, FIO2 90 %; O2 Saturation 97 % (91-98); PCO2 67 mmHg (32.0-48.0); PO2 85 mmHg (83-108); pH, Arterial 7.29 (7.35-7.45)
[2025-03-07 22:27] LABS: Allen Test Not Performed; Puncture Site Left Radial
[2025-03-07 23:39] LABS: Fentanyl Screen,Urine Negative (Negative)
[2025-03-08] VITALS (102 sets, daily range): BP systolic 81–174; BP diastolic 40–111; PULSE 75–114; RESP 8–37; TEMP 36.6–37.1; O2SAT 90–98; BMI 51.0
[2025-03-08] MEDS: AMPICILLIN/SULBAC INJ 3 GM in SODIUM CHLORIDE 0.9% 100 ML IV ×2 (00:41→06:01)
[2025-03-08] MEDS: PROPOFOL 1,000 MG IVPB 1,000 MG/100 ML VIAL 28.086 MG IV (02:16)
[2025-03-08] MEDS: ALBUTEROL/IPRATROPIUM (Duoneb) RT SOL 3 ML NEBU INH ×5 (02:20→22:39)
[2025-03-08 04:47] LABS: Base Excess 3 (-3-3); HCO3 33 mEq/L (20-26); Inspired Oxygen, FIO2 95 %; O2 Saturation 95 % (91-98); PCO2 73 mmHg (32.0-48.0); PO2 77 mmHg (83-108); pH, Arterial 7.26 (7.35-7.45)
[2025-03-08 05:00] LABS: Puncture Site Left Radial
[2025-03-08 05:01] LABS: Allen Test Performed/OK
[2025-03-08 05:21] LABS: Basophils % (Auto) 0 % (0-2.5); Eosinophils % (Auto) 0 % (0-10); Hematocrit 44.6 % (41.0-53.0); Hemoglobin 14.4 g/dL (13.5-16.0); Immature Granulocytes % (Auto) 1 % (0-0); Lymphocytes # (Auto) 0.9 Thou/mm3 (1.0-4.8); Lymphocytes % (Auto) 8 % (10-50); Mean Corpuscular HGB Conc 32.3 g/dl (31.0-37.0); Mean Corpuscular Hemoglobin 27.9 pg (25.0-35.0); Mean Corpuscular Volume 86 fL (80-100); Monocytes # (Auto) 0.1 Thou/mm3 (0.0-0.8); Monocytes % (Auto) 1 % (0-12); Neutrophils # (Auto) 9.9 Thou/mm3 (1.8-7.7); Neutrophils % (Auto) 90 % (37-80); Nucleated Red Blood Cell % 0 /100 WBC (0); Platelet Count 239 Thou/mm3 (140-440); Red Blood Count 5.17 Miln/mm3 (4.50-5.90)
[2025-03-08 05:36] LABS: Glucose Estimated Average 148 mg/dL (80-131); Hemoglobin A1C 6.8 % Hgb (4.8-6.0)
[2025-03-08 05:53] LABS: Alanine Aminotransferase 79 U/L (10-49); Albumin, Serum 4.2 gm/dL (3.5-5.0); Albumin/Globulin Ratio 1.3 (1.2-2.2); Alkaline Phosphatase 96 U/L (46-116); Anion Gap 8 (7-16); Aspartate Amino Transferase 39 U/L (0-34); BUN/Creatinine Ratio 15 Ratio (12-20); Bilirubin,Total 0.3 mg/dL (0.3-1.2); Blood Urea Nitrogen 19 mg/dL (9-23); Calcium 8.8 mg/dL (8.3-10.6); Calcium (Corrected) 8.8 mg/dL (8.5-10.1); Carbon Dioxide 30.9 mMol/L (20.0-31.0); Chloride 101 mMol/L (98-107); Creatinine (Component) 1.3 mg/dL (0.6-1.3); Estimated Creatinine Clearance 101.2 mL/min (>60); Globulin 3.3 gm/dL (2.3-3.5); Glucose 181 mg/dL (74-106); Magnesium 1.8 mg/dL (1.6-2.6); Osmolality,Calculated 286 (275-295); Phosphorous 4.8 mg/dL (2.4-5.1); Potassium 4.5 mMol/L (3.4-5.1); Sodium 140 mMol/L (136-145); Total Protein 7.5 gm/dL (5.7-8.2); eGFR > 60 See Note
[2025-03-08] MEDS: INSULIN LISPRO (AdmeLOG) 1 UNIT/0.01 ML UNIT SC (05:59)
--- NOTE | 2025-03-08 07:03 | XR_ITS ---
Examination: AP chest single view Technique one AP portable semiupright chest single view Exam date and time: March 08, 2025, 0731 hrs. Indications: Shortness of breath hypoxic respiratory failure this week, pneumonia left base Findings: Mild to moderate enlargement cardiac contour with prominent vascular congestion. Significant pneumonia left base. Orogastric tube in the stomach, the tip is below the level of the film. Endotracheal tube tip 6 cm above jennifer Impression: Prominent left base pneumonia Prominent vascular congestion
[2025-03-08 07:39] LABS: Base Excess 4 (-3-3); HCO3 32 mEq/L (20-26); Inspired Oxygen, FIO2 90 %; O2 Saturation 94 % (91-98); PCO2 61 mmHg (32.0-48.0); PO2 72 mmHg (83-108); pH, Arterial 7.32 (7.35-7.45)
[2025-03-08 07:43] LABS: Allen Test Performed/OK; Puncture Site Left Radial
[2025-03-08] MEDS: PROPOFOL 1,000 MG IVPB 1,000 MG/100 ML VIAL 14.043 MG IV (08:46)
[2025-03-08] MEDS: ENOXAPARIN SOD INJ 40 MG/0.4 ML SYRINGE SC (09:34)
[2025-03-08] MEDS: PANTOPRAZOLE INJ 40 MG VIAL IVP (09:34)
--- NOTE | 2025-03-08 11:00 | PD.RESPRO ---
Documentation for date of: 03/08/25 Subjective Subjective Interval history: Patient is a 44-year-old male with past medical history of morbid obesity, schizophrenia, hypertension, type 2 diabetes, BHAVESH on CPAP, obesity hypoventilation on 2 L baseline of O2 who came to [facility] brought in by ambulance after being found somnolent at home. History obtained primarily through chart review due to the fact the patient was already intubated. According to the chart patient was drowsy, hypoxic and not feeling well and that he had been feeling sick for 1 week prior. He was placed upon BiPAP in the emergency department and when history was being obtained by floor team patient became obtunded so he was intubated for protection of airway. Patient has been hospitalized over the previous 1 year with similar complaints of respiratory distress and failure. 12/12/2024: Patient was seen and examined in the ICU today. There were no major overnight events and patient was alert and oriented able to follow commands while on minimal sedation. Despite being intubated patient wanted to have water and eat. Spontaneous breathing trial was started and patient successfully passed did and he was subsequently extubated at 11:20 AM. Patient was comfortably breathing on the OxyMask saturating well. Patient's condition is likely secondary to OHS as well as polypharmacy. Will continue patient on BiPAP at night and watch him overnight for potential downgrade tomorrow. Exam Vital Signs Temp Pulse Resp BP Pulse Ox O2 Del Method O2 Flow Rate 98.2 F 105 H 28 H 130/70 96 Mechanical Ventilation 10 03/08/25 08:00 03/08/25 10:30 03/08/25 10:16 03/08/25 10:30 03/08/25 10:30 03/08/25 04:00 03/07/25 18:10 FiO2 90 03/08/25 10:16 Narrative Exam Constitutional: Awake and alert while he was intubated. Head: Normocephalic/Atraumatic Eyes: PERRL , no conjunctival injection , symmetrical lids. ENMT: Moist Mucous Membranes, No trauma or injury. Neck: Supple to palpation, No JVD CVS: RRR, S1 and S2 present, no murmurs, rubs or gallops . RESP: CTAB, no SOB, no rales, rhonchi or wheezing. No respiratory Distress GI: Normal BS, Nontender/Nondistended. MSK: Full range of motion, No trauma or deformities or masses. Skin: Warm to touch, Dry. No rashes or lesions. No hematomas Psych: (AAO) x3 . Able to follow commands once extubated. Objective Labs 03/10/25 05:54 03/10/25 05:54 Labs: Laboratory Results - last 24 hr 03/07/25 03/07/25 03/07/25 15:50 16:56 19:07 WBC 10.0 RBC 5.36 Hgb 14.8 Hct 46.3 MCV 86 MCH 27.6 MCHC 32.0 RDW Std Deviation 50.2 H Plt Count 192 Neut % (Auto) 73 Lymph % (Auto) 14 [place] % (Auto) 7 Eos % (Auto) 5 Baso % (Auto) 1 Neut # (Auto) 7.3 Lymph # (Auto) 1.4 [place] # (Auto) 0.7 Eos # (Auto) 0.5 Baso # (Auto) 0.1 Immature Gran # (Auto) 0.05 H Absolute Nucleated RBC 0.00 Immature Gran % 1 H Nucleated RBC % 0 PT 11.3 INR 1.0 APTT 28.7 Puncture Site Left Radial ABG pH 7.30 L ABG pCO2 65 H ABG pO2 72 L ABG HCO3 32 H ABG O2 Saturation 94 ABG Base Excess 3 Oxygen Liter Flow 4 FiO2 Sodium 142 Potassium 4.1 Chloride 102 Carbon Dioxide 31.0 Anion Gap 9 BUN 16 Creatinine 0.9 Estim Creat Clear Calc 151.2 eGFR > 60 BUN/Creatinine Ratio [address] Glu mg/dL Hemoglobin A1c Calculated Osmolality 285 Lactic Acid 1.1 Calcium 9.1 Corrected Calcium 9.1 Phosphorus Magnesium Total Bilirubin 0.3 AST 42 H ALT 84 H Alkaline Phosphatase 104 Ammonia 36 H Troponin I < 0.002 C-Reactive Prot, Quant 1.3 H B-Natriuretic Peptide < 20 Total Protein 7.6 Albumin 4.3 Globulin 3.3 Albumin/Globulin Ratio 1.3 Procalcitonin 0.10 TSH Urine Opiates Screen Urine Fentanyl Screen Ur Barbiturates Screen U Amphetamin/Meth Scrn U Benzodiazepines Scrn U Cocaine Metab Screen U Marijuana (THC) Screen 03/07/25 03/07/25 03/07/25 19:27 19:36 22:21 WBC RBC Hgb Hct MCV MCH MCHC RDW Std Deviation Plt Count Neut % (Auto) Lymph % (Auto) [place] % (Auto) Eos % (Auto) Baso % (Auto) Neut # (Auto) Lymph # (Auto) [place] # (Auto) Eos # (Auto) Baso # (Auto) Immature Gran # (Auto) Absolute Nucleated RBC Immature Gran % Nucleated RBC % PT INR APTT Puncture Site Left Radial Left Radial ABG pH 7.26 L 7.29 L ABG pCO2 72 H* 67 H ABG pO2 135 H D 85 D ABG HCO3 32 H 32 H ABG O2 Saturation 99 H 97 ABG Base Excess 3 3 Oxygen Liter Flow FiO2 100 90 Sodium Potassium Chloride Carbon Dioxide Anion Gap BUN Creatinine Estim Creat Clear Calc eGFR BUN/Creatinine Ratio Glucose Estimated Ave Glu mg/dL Hemoglobin A1c Calculated Osmolality Lactic Acid Calcium Corrected Calcium Phosphorus Magnesium Total Bilirubin AST ALT Alkaline Phosphatase Ammonia Troponin I C-Reactive Prot, Quant B-Natriuretic Peptide Total Protein Albumin Globulin Albumin/Globulin Ratio Procalcitonin TSH Urine Opiates Screen Negative Urine Fentanyl Screen Negative Ur Barbiturates Screen Negative U Amphetamin/Meth Scrn Negative U Benzodiazepines Scrn Negative U Cocaine Metab Screen Negative U Marijuana (THC) Screen Negative 03/08/25 03/08/25 03/08/25 04:19 05:02 07:31 WBC 11.0 H RBC 5.17 Hgb 14.4 Hct 44.6 MCV 86 MCH 27.9 MCHC 32.3 RDW Std Deviation 50.0 H Plt Count 239 D Neut % (Auto) 90 H Lymph % (Auto) 8 L [place] % (Auto) 1 Eos % (Auto) 0 Baso % (Auto) 0 Neut # (Auto) 9.9 H Lymph # (Auto) 0.9 L [place] # (Auto) 0.1 Eos # (Auto) 0.0 Baso # (Auto) 0.0 Immature Gran # (Auto) 0.10 H Absolute Nucleated RBC 0.00 Immature Gran % 1 H Nucleated RBC % 0 PT INR APTT Puncture Site Left Radial Left Radial ABG pH 7.26 L 7.32 L ABG pCO2 73 H* 61 H D ABG pO2 77 L 72 L ABG HCO3 33 H 32 H ABG O2 Saturation 95 94 ABG Base Excess 3 4 H Oxygen Liter Flow FiO2 95 90 Sodium 140 Potassium 4.5 Chloride 101 Carbon Dioxide 30.9 Anion Gap 8 BUN 19 Creatinine 1.3 Estim Creat Clear Calc 101.2 eGFR > 60 BUN/Creatinine Ratio 15 Glucose [address] Glu mg/dL 148 H Hemoglobin A1c 6.8 H Calculated Osmolality 286 Lactic Acid Calcium 8.8 Corrected Calcium 8.8 Phosphorus 4.8 Magnesium 1.8 Total Bilirubin 0.3 AST 39 H ALT 79 H Alkaline Phosphatase 96 Ammonia Troponin I C-Reactive Prot, Quant B-Natriuretic Peptide Total Protein 7.5 Albumin 4.2 Globulin 3.3 Albumin/Globulin Ratio 1.3 Procalcitonin TSH 0.50 L Urine Opiates Screen Urine Fentanyl Screen Ur Barbiturates Screen U Amphetamin/Meth Scrn U Benzodiazepines Scrn U Cocaine Metab Screen U Marijuana (THC) Screen ABG Interpretation ABG results: 03/07/25 03/07/25 03/07/25 15:50 19:27 22:21 ABG pH 7.30 L 7.26 L 7.29 L ABG pCO2 65 H 72 H* 67 H ABG pO2 72 L 135 H D 85 D ABG HCO3 32 H 32 H 32 H ABG O2 Saturation 94 99 H 97 ABG Base Excess 3 3 3 03/08/25 03/08/25 04:19 07:31 ABG pH 7.26 L 7.32 L ABG pCO2 73 H* 61 H D ABG pO2 77 L 72 L ABG HCO3 33 H 32 H ABG O2 Saturation 95 94 ABG Base Excess 3 4 H Quality Measures Quality Measures none Assessment & Plan Assessment Current Active Medications: Generic Name Dose Route Start Last Admin Trade Name Freq PRN Reason Stop Dose Admin Acetaminophen 650 mg 03/07/25 19:16 Acetaminophen 325 Mg Tablet PO 04/06/25 19:15 Q6H PRN Fever >101.5 Albuterol/Ipratropium 3 ml 03/07/25 23:00 03/08/25 10:16 Albuterol/Ipratropium (Duoneb) Rt Katarina 3 Ml Nebu INH 04/06/25 22:59 3 ml Q4HRRT JEANNE Administration Carvedilol 6.25 mg 03/07/25 21:00 03/08/25 09:58 Carvedilol 3.125 Mg Tablet PO 04/06/25 20:59 Not Given BID JEANNE Dextrose 25 ml 03/07/25 19:36 Dextrose 50%-Water Inj 50 Ml Syringe IV 04/06/25 19:35 Q15MIN PRN BG 50-70 responsive npo pt Dextrose 50 ml 03/07/25 19:36 Dextrose 50%-Water Inj 50 Ml Syringe IV 04/06/25 19:35 Q15MIN PRN BG <50 OR BG <70 & pt unresponsive Enoxaparin Sodium 40 mg 03/08/25 09:00 03/08/25 09:34 Enoxaparin Sod Inj 40 Mg/0.4 Ml Syringe SC 03/22/25 08:59 40 mg QDAY JEANNE Administration Glucagon 1 mg 03/07/25 19:36 Glucagon Inj 1 Mg Vial IM Q15MIN PRN BG <70, and no IV access Propofol 1,000 mg in 100 mls @ 4.681 mls/hr 03/07/25 19:01 03/08/25 10:30 Diprivan Ivpb IV 04/06/25 19:00 0 mcg/kg/min .[id number] PRN 0 mls/hr PER PROTOCOL Titration Protocol 5 MCG/KG/MIN Fentanyl Citrate 2,500 mcg in 250 mls @ 2.5 mls/hr 03/07/25 19:02 03/08/25 10:30 Sublimaze Inj 2,500 Mcg/250 Ml Bag IV 03/12/25 19:01 0 mcg/hr .Q24H PRN 0 mls/hr PER PROTOCOL Titration Protocol 25 MCG/HR Insulin Human Lispro 0 unit 03/08/25 06:00 03/08/25 05:59 Insulin Lispro (Admelog) 1 Unit/0.01 Ml Unit SC 04/07/25 05:59 2 unit Q6HR JEANNE Administration Protocol Ondansetron HCl 4 mg 03/07/25 19:16 Ondansetron Inj 2 Mg/Ml Inj 2 Ml IV 04/06/25 19:15 Q6H PRN NAUSEA OR VOMITING Protocol Pantoprazole Sodium 40 mg 03/07/25 19:30 03/08/25 09:34 Pantoprazole Inj 40 Mg Vial IVP 04/06/25 19:29 40 mg QDAY JEANNE Administration Sennosides 1 tab 03/08/25 09:00 03/08/25 09:31 Senna Tablet PO 04/07/25 08:59 Not Given QDAY JEANNE Protocol Plan Neurology Problem: Currently sedated on propofol and fentanyl. RASS score -2. Prior to sedation patient was obtunded. History of schizophrenia with 3 recent prescriptions for Abilify, Haldol, and Zyprexa. Urine drug screen remains pending currently. ABG reveals a pH of 7.30 and CO2 of 65. Current chest x-ray reveals early pneumonia but patient is afebrile without a's productive cough or leukocytosis. Will give Unasyn for antibiotic coverage in the event that patient had aspiration event DDx: May be secondary to polypharmacy versus COPD exacerbation versus obesity hypoventilation syndrome Plan is to monitor the patient overnight on the BiPAP until the morning and likely downgrade if he continues to be alert and oriented and able to follow commands. Cardiovascular Problem: History of hypertension Will resume Coreg 6.25 twice daily Respiratory Problem: Acute on chronic hypoxic respiratory failure currently on mechanical ventilation DDx: May be secondary to obesity hypoventilation versus polypharmacy Diagnostic Test: pH is appropriate with very mild hypercapnia. On 2 L at baseline. Patient was intubated today 03/08/2025 around noon Chest x-ray shows vascular congestion as well and he got 1 dose of Lasix at night GI and F/E/N Problem: Protonix 40 IV daily. Currently n.p.o.. Mild transaminitis with AST of 42 and ALT 4. Mild hyperammonemia with 36 Renal Problem: None Heme Problem: None Endo Problem: Type 2 diabetes. Sliding scale insulin initiated with every 6 hour checks. A1c in the a.m. ID Problem: Community-acquired pneumonia DDx: Will cover with Unasyn for anaerobic coverage in the event patient had aspiration event DVT prophylaxis: Lovenox 40 subcutaneous daily GI prophylaxis: Protonix 40 IV daily Diet: Carb consistent low [place]arden: Not indicated Lines: Peripheral lines Drips: None Vent: Extubated CODE STATUS: Full code Reason for hospitalization acute on chronic hypoxic respiratory failure secondary acute hypoxic hypercapnic respiratory failure following patient's lack of CPAP at night as well as possible underlying polypharmacy as patient takes a lot of medications that cause sedation. I discussed patient's care with attending physician, Dr Madelin Flanagan PGY3 Attending Provider Attestation/Addendum Patient seen and examined with above resident, Rico Flanagan MD. I agree with the findings, assessment, and plan of care as documented except for any differences below. Patient with continued significant improvement off of sedation. Tolerated spontaneous awake trial well and was successfully extubated after SBT. Patient asking for diet, will continue to monitor closely as he does have apneic episodes likely in the setting of clearance of sedating regimen. Once mentation is improved around dinnertime patient will likely be able to resume diet after bedside swallow. Patient remains on appropriate empiric antibiotics for aspiration pneumonia. Will wean off of supplemental oxygen as tolerated. Monitor for 24 hours prior to his likely transition to medicine [place] tomorrow. Total critical care time: I personally spent 40 minutes for review of physiologic parameters,, directing plan of care, and counseling patient at bedside. This is exclusive of time spent teaching housestaff performing any separate billable procedures. Patient remains at significant risk for further morbidity and mortality warranting close monitoring and care immediately available within the intensive care unit. Patient required critical care services for acute on chronic hypoxic respiratory failure with aspiration pneumonia.
--- NOTE | 2025-03-08 14:58 | PC.SS ---
Patient is currently in ICU. Patient is on mechanical vent support. Patient is Full code. SS contacted patient's mother, Lakisha, who confirmed she is the alt medical decision maker. Lakisha states patient resides with her. Patient was admitted for chronic resp. failure. Prior to hospitalization patient was independent with ADL's. He was using a [facility] machine ([facility]) and 02 ([facility]). Patient was being seen in the past by Dr. Ford but now has an upcoming appt scheduled for a new Communications Agent in [place].Patient has hx: Schizophrenia. Tox report was negative. Patient's mother states patient was very lethargic lately and sleeping a lot. PCP: @ [facility]. Last appt. was yesterday. Decision maker: Lakisha Kirby, mother,
[2025-03-08] MEDS: EPINEPHrine RT SOL 0.5 ML NEBU INH ×2 (19:56→22:41)
--- NOTE | 2025-03-08 20:23 | ECHO_ITS ---
Transthoracic Echo Report Ht (in): 67 Wt (lb): 325 Exam Location: Portable Status: Inpatient [employer] C[employer] Developer: GEO Mcdonald^^^^ Indications: Procedure Performed: BP: 93 / 50 HR: 106 Technical Quality: Very technically difficult study MEASUREMENTS (Male / Female) Normal Values 2D ECHO LV Diastolic Diameter PLAX 5.2 cm 4.2 - 5.9 / 3.9 - 5.3 cm LV Systolic Diameter PLAX 4.2 cm IVS Diastolic Thickness 1.0 cm 0.6 - 1.0 / 0.6 - 0.9 cm LVPW Diastolic Thickness 1.0 cm 0.6 - 1.0 / 0.6 - 0.9 cm LV Relative Wall Thickness 0.4 LVOT Diameter 1.6 cm Aortic Root Diameter 3.6 cm LA Systolic Diameter LX 2.7 cm 3.0 - 4.0 / 2.7 - 3.8 cm DOPPLER AV Peak Velocity 150.5 cm/s AV Peak Gradient 9.1 mmHg AV Mean Gradient 6.0 mmHg AV Velocity Time Integral 37.4 cm LVOT Peak Velocity 114.0 cm/s LVOT Peak Gradient 5.2 mmHg LVOT Velocity Time Integral 28.2 cm LVOT Cardiac Index 2204.6 cm?/min?m? AV Area Cont Eq vti 1.5 cm? AV Area Cont Eq pk 1.5 cm? MV Area PHT 3.6 cm? Mitral E Point Velocity 77.7 cm/s Mitral A Point Velocity 59.0 cm/s Mitral E to A Ratio 1.3 LV E' Lateral Velocity 8.3 cm/s Mitral E to LV E' Lateral Ratio 9.4 LV E' Septal Velocity 7.0 cm/s Mitral E to LV E' Septal Ratio 11.0 TR Peak Velocity 214.0 cm/s TR Peak Gradient 18.3 mmHg PV Peak Velocity 109.0 cm/s PV Peak Gradient 4.8 mmHg RVOT Peak Velocity 69.5 cm/s FINDINGS Left Ventricle Normal left ventricular size, wall thickness, systolic function with no obvious regional wall motion abnormalities. Normal left ventricular diastolic filling pattern for age. The ejection fraction is visually estimated at 55-60 %. Right Ventricle The right ventricle is normal in size and systolic function. The estimated right ventricular systolic pressure, 25 mmHg. Left Atrium The left atrium is normal by two-dimensional, color flow and Doppler imaging with no structural abnormalities, no thrombus formation present. Right Atrium The right atrium is normal by two-dimensional imaging, color flow and Doppler imaging with no structural abnormalities, no thrombus formation present. Atrial Septum The interatrial septum appears normal with no evidence of a shunt. Aorta The aorta is normal by two-dimensional, color flow and Doppler interrogation. Mitral Valve Trace to mild mitral regurgitation. Aortic Valve Aortic valve sclerosis. Tricuspid Valve There is mild tricuspid valve regurgitation. Pulmonic Valve The pulmonic valve is not well visualized. There is no significant pulmonic valve regurgitation. Vessels The pulmonary artery appears normal. The inferior vena cava pulmonary and hepatic veins appear normal. Pericardium There is a small pericardial effusion. CONCLUSIONS Indication: Concern for volume overload The transthoracic study is normal by two-dimensional, color flow imaging and Doppler interrogation. Normal left ventricular size and function. Normal right ventricle function. Approximate ejection fraction is 60%. Trace mitral and trace tricuspid regurgitation No wall motion abnormalities Mi Pugh (Electronically Signed) Final Date: 08 Mar 2025 17:09
[2025-03-08] MEDS: carVEDILOL 3.125 MG TABLET 6.25 MG PO (21:23)
[2025-03-09] VITALS (27 sets, daily range): BP systolic 104–161; BP diastolic 60–114; PULSE 72–98; RESP 12–26; TEMP 36.2–36.7; O2SAT 92–100
[2025-03-09] MEDS: ALBUTEROL/IPRATROPIUM (Duoneb) RT SOL 3 ML NEBU INH ×5 (02:33→22:45)
[2025-03-09 05:10] LABS: Base Excess 7 (-3-3); HCO3 33 mEq/L (20-26); Inspired Oxygen, FIO2 40 %; O2 Saturation 95 % (91-98); PCO2 53 mmHg (32.0-48.0); PO2 69 mmHg (83-108); pH, Arterial 7.41 (7.35-7.45)
[2025-03-09 05:13] LABS: Allen Test Performed/OK; Puncture Site Left Radial
[2025-03-09 05:58] LABS: Basophils # (Auto) 0.1 Thou/mm3 (0.0-0.2); Basophils % (Auto) 1 % (0-2.5); Eosinophils # (Auto) 0.1 Thou/mm3 (0.0-0.5); Eosinophils % (Auto) 1 % (0-10); Hematocrit 44.8 % (41.0-53.0); Hemoglobin 14.3 g/dL (13.5-16.0); Immature Granulocytes % (Auto) 1 % (0-0); Immature Granulocytes Auto 0.05 Thou/mm3 (0.00-0.00); Lymphocytes # (Auto) 1.6 Thou/mm3 (1.0-4.8); Lymphocytes % (Auto) 16 % (10-50); Mean Corpuscular HGB Conc 31.9 g/dl (31.0-37.0); Mean Corpuscular Hemoglobin 27.8 pg (25.0-35.0); Mean Corpuscular Volume 87 fL (80-100); Monocytes # (Auto) 0.7 Thou/mm3 (0.0-0.8); Monocytes % (Auto) 7 % (0-12); Neutrophils # (Auto) 7.8 Thou/mm3 (1.8-7.7); Neutrophils % (Auto) 76 % (37-80); Nucleated Red Blood Cell % 0 /100 WBC (0); Platelet Count 174 Thou/mm3 (140-440); Red Blood Count 5.14 Miln/mm3 (4.50-5.90); White Blood Count 10.3 Thou/mm3 (3.8-10.6)
[2025-03-09 06:18] LABS: Alanine Aminotransferase 70 U/L (10-49); Albumin/Globulin Ratio 1.3 (1.2-2.2); Alkaline Phosphatase 85 U/L (46-116); Anion Gap 9 (7-16); Aspartate Amino Transferase 41 U/L (0-34); BUN/Creatinine Ratio 25 Ratio (12-20); Bilirubin,Total 0.4 mg/dL (0.3-1.2); Blood Urea Nitrogen 25 mg/dL (9-23); Calcium 8.3 mg/dL (8.3-10.6); Calcium (Corrected) 8.3 mg/dL (8.5-10.1); Carbon Dioxide 31.8 mMol/L (20.0-31.0); Chloride 100 mMol/L (98-107); Estimated Creatinine Clearance 129.7 mL/min (>60); Glucose 118 mg/dL (74-106); Osmolality,Calculated 286 (275-295); Phosphorous 3.4 mg/dL (2.4-5.1); Sodium 141 mMol/L (136-145); eGFR > 60 See Note
[2025-03-09] MEDS: carVEDILOL 3.125 MG TABLET 6.25 MG PO (08:15)
[2025-03-09] MEDS: ENOXAPARIN SOD INJ 40 MG/0.4 ML SYRINGE SC ×2 (08:15→20:25)
[2025-03-09] MEDS: PANTOPRAZOLE INJ 40 MG VIAL IVP (08:15)
--- NOTE | 2025-03-09 09:12 | PD.RESPRO ---
Documentation for date of: 03/09/25 Subjective Subjective Interval history: Patient is a 44-year-old male with past medical history of morbid obesity, schizophrenia, hypertension, type 2 diabetes, BHAVESH on CPAP, obesity hypoventilation on 2 L baseline of O2 who came to [facility] brought in by ambulance after being found somnolent at home. History obtained primarily through chart review due to the fact the patient was already intubated. According to the chart patient was drowsy, hypoxic and not feeling well and that he had been feeling sick for 1 week prior. He was placed upon BiPAP in the emergency department and when history was being obtained by floor team patient became obtunded so he was intubated for protection of airway. Patient has been hospitalized over the previous 1 year with similar complaints of respiratory distress and failure. 03/08/2025: Patient was seen and examined in the ICU today. There were no major overnight events and patient was alert and oriented able to follow commands while on minimal sedation. Despite being intubated patient wanted to have water and eat. Spontaneous breathing trial was started and patient successfully passed did and he was subsequently extubated at 11:20 AM. Patient was comfortably breathing on the OxyMask saturating well. Patient's condition is likely secondary to OHS as well as polypharmacy. Will continue patient on BiPAP at night and watch him overnight for potential downgrade tomorrow. 03/09/2025: Patient seen and examined in ICU today. There were no major overnight events and patient was alert and oriented following commands this morning. Patient was on the BiPAP last night and tolerated it well. ABG this morning showed adequate pH with a CO2 of 53 and a PO2 of 69. Will downgrade the patient to the floors and for now would recommend keeping the patient's olanzapine at night and having the Haldol to 5 p.o. twice daily. Recommend holding aripiprazole as this was recently prescribed medication and could have contributed to patient's increased somnolence on top of not being able to have the CPAP machine. Patient was subsequently downgraded to team A. Exam Vital Signs Temp Pulse Resp BP Pulse Ox O2 Del Method O2 Flow Rate 97.3 F 94 21 H 145/74 H 94 L BiPAP 8 03/09/25 04:00 03/09/25 08:15 03/09/25 06:43 03/09/25 08:15 03/09/25 06:43 03/09/25 04:00 03/08/25 19:39 FiO2 40 03/09/25 06:43 Narrative Exam Constitutional: Awake and alert and resting comfortably in bed on BiPAP. Head: Normocephalic/Atraumatic Eyes: PERRL , no conjunctival injection , symmetrical lids. ENMT: Moist Mucous Membranes, No trauma or injury. Neck: Supple to palpation, No JVD CVS: RRR, S1 and S2 present, no murmurs, rubs or gallops . RESP: CTAB, no SOB, no rales, rhonchi or wheezing. No respiratory Distress GI: Normal BS, Nontender/Nondistended. MSK: Full range of motion, No trauma or deformities or masses. Skin: Warm to touch, Dry. No rashes or lesions. No hematomas Psych: (AAO) x3 . Able to follow commands. Objective Labs 03/10/25 05:54 03/10/25 05:54 Labs: Laboratory Results - last 24 hr 03/09/25 03/09/25 04:40 05:00 WBC 10.3 RBC 5.14 Hgb 14.3 Hct 44.8 MCV 87 MCH 27.8 MCHC 31.9 RDW Std Deviation 51.0 H Plt Count 174 D Neut % (Auto) 76 Lymph % (Auto) 16 [place] % (Auto) 7 Eos % (Auto) 1 Baso % (Auto) 1 Neut # (Auto) 7.8 H Lymph # (Auto) 1.6 [place] # (Auto) 0.7 Eos # (Auto) 0.1 Baso # (Auto) 0.1 Immature Gran # (Auto) 0.05 H Absolute Nucleated RBC 0.00 Immature Gran % 1 H Nucleated RBC % 0 Puncture Site Left Radial ABG pH 7.41 ABG pCO2 53 H ABG pO2 69 L ABG HCO3 33 H ABG O2 Saturation 95 ABG Base Excess 7 H FiO2 40 Sodium 141 Potassium 4.0 D Chloride 100 Carbon Dioxide 31.8 H Anion Gap 9 BUN 25 H Creatinine 1.0 Estim Creat Clear Calc 129.7 eGFR > 60 BUN/Creatinine Ratio 25 H Glucose 118 H D Calculated Osmolality 286 Calcium 8.3 Corrected Calcium 8.3 L Phosphorus 3.4 Magnesium 2.0 Total Bilirubin 0.4 AST 41 H ALT 70 H Alkaline Phosphatase 85 Total Protein 7.0 Albumin 4.0 Globulin 3.0 Albumin/Globulin Ratio 1.3 ABG Interpretation ABG results: 03/07/25 03/07/25 03/07/25 15:50 19:27 22:21 ABG pH 7.30 L 7.26 L 7.29 L ABG pCO2 65 H 72 H* 67 H ABG pO2 72 L 135 H D 85 D ABG HCO3 32 H 32 H 32 H ABG O2 Saturation 94 99 H 97 ABG Base Excess 3 3 3 03/08/25 03/08/25 03/09/25 04:19 07:31 05:00 ABG pH 7.26 L 7.32 L 7.41 ABG pCO2 73 H* 61 H D 53 H ABG pO2 77 L 72 L 69 L ABG HCO3 33 H 32 H 33 H ABG O2 Saturation 95 94 95 ABG Base Excess 3 4 H 7 H Quality Measures Quality Measures none Assessment & Plan Assessment Current Active Medications: Generic Name Dose Route Start Last Admin Trade Name Freq PRN Reason Stop Dose Admin Acetaminophen 650 mg 03/07/25 19:16 Acetaminophen 325 Mg Tablet PO 04/06/25 19:15 Q6H PRN Fever >101.5 Albuterol/Ipratropium 3 ml 03/07/25 23:00 03/09/25 06:41 Albuterol/Ipratropium (Duoneb) Rt Katarina 3 Ml Nebu INH 04/06/25 22:59 3 ml Q4HRRT JEANNE Administration Carvedilol 6.25 mg 03/07/25 21:00 03/09/25 08:15 Carvedilol 3.125 Mg Tablet PO 04/06/25 20:59 6.25 mg BID JEANNE Administration Dextrose 25 ml 03/07/25 19:36 Dextrose 50%-Water Inj 50 Ml Syringe IV 04/06/25 19:35 Q15MIN PRN BG 50-70 responsive npo pt Dextrose 50 ml 03/07/25 19:36 Dextrose 50%-Water Inj 50 Ml Syringe IV 04/06/25 19:35 Q15MIN PRN BG <50 OR BG <70 & pt unresponsive Enoxaparin Sodium 40 mg 03/08/25 09:00 03/09/25 08:15 Enoxaparin Sod Inj 40 Mg/0.4 Ml Syringe SC 03/22/25 08:59 40 mg QDAY JEANNE Administration Glucagon 1 mg 03/07/25 19:36 Glucagon Inj 1 Mg Vial IM Q15MIN PRN BG <70, and no IV access Haloperidol 5 mg 03/09/25 21:00 Haloperidol 5 Mg Tablet PO 04/08/25 20:59 BID JEANNE Propofol 1,000 mg in 100 mls @ 4.681 mls/hr 03/07/25 19:01 03/08/25 10:30 Diprivan Ivpb IV 04/06/25 19:00 0 mcg/kg/min .[id number] PRN 0 mls/hr PER PROTOCOL Titration Protocol 5 MCG/KG/MIN Fentanyl Citrate 2,500 mcg in 250 mls @ 2.5 mls/hr 03/07/25 19:02 03/08/25 10:30 Sublimaze Inj 2,500 Mcg/250 Ml Bag IV 03/12/25 19:01 0 mcg/hr .Q24H PRN 0 mls/hr PER PROTOCOL Titration Protocol 25 MCG/HR Insulin Human Lispro 0 unit 03/08/25 21:00 03/09/25 08:09 Insulin Lispro (Admelog) 1 Unit/0.01 Ml Unit SC 04/07/25 20:59 Not Given ACHS JEANNE Protocol Olanzapine 10 mg 03/09/25 21:00 Olanzapine 5 Mg Tablet PO 04/08/25 20:59 HS JEANNE Ondansetron HCl 4 mg 03/07/25 19:16 Ondansetron Inj 2 Mg/Ml Inj 2 Ml IV 04/06/25 19:15 Q6H PRN NAUSEA OR VOMITING Protocol Pantoprazole Sodium 40 mg 03/07/25 19:30 03/09/25 08:15 Pantoprazole Inj 40 Mg Vial IVP 04/06/25 19:29 40 mg QDAY JEANNE Administration Sennosides 1 tab 03/08/25 09:00 03/08/25 09:31 Senna Tablet PO 04/07/25 08:59 Not Given QDAY JEANNE Protocol Sodium Chloride 3 ml 03/08/25 19:57 Sodium Chloride Rt Katarina 0.9% 3 Ml Nebu INH 04/07/25 19:56 PRN PRN SOLN Sodium Chloride 3 ml 03/08/25 22:35 Sodium Chloride Rt Katarina 0.9% 3 Ml Nebu INH 06/01/25 22:34 PRN PRN SOLN Plan Neurology Acute encephalopathy has resolved as patient is back to baseline awake and alert and able to follow commands. Cardiovascular Problem: History of hypertension Will resume Coreg 6.25 twice daily Respiratory Problem: Acute on chronic hypoxic respiratory failure currently on mechanical ventilation DDx: May be secondary to obesity hypoventilation versus polypharmacy Diagnostic Test: pH is appropriate with very mild hypercapnia. On 2 L at baseline. Patient was intubated today 03/08/2025 around noon ? Continue BiPAP at night ? Titrating his home medications down to Haldol 5 p.o. twice daily and olanzapine 10 without aripiprazole as polypharmacy is likely a contributing culprit to patient's initial presentation. GI and F/E/N Problem: Protonix 40 IV daily. Currently n.p.o.. Mild transaminitis with AST of 42 and ALT 4. Mild hyperammonemia with 36 Renal Problem: None Heme Problem: None Endo Problem: Type 2 diabetes. Sliding scale insulin initiated with every 6 hour checks. ID Problem: Community-acquired pneumonia DDx: Will cover with Unasyn for anaerobic coverage in the event patient had aspiration event DVT prophylaxis: Lovenox 40 subcutaneous daily GI prophylaxis: Protonix 40 IV daily Diet: Carb consistent low [place]: Not indicated Lines: Peripheral lines Drips: None Vent: Extubated CODE STATUS: Full code Reason for hospitalization acute on chronic hypoxic respiratory failure secondary acute hypoxic hypercapnic respiratory failure. Patient downgraded to telemetry I discussed patient's care with attending physician, Dr Madelin Flanagan PGY3 Attending Provider Attestation/Addendum Patient seen and examined with above resident, Rico Flanagan MD. I agree with the findings, assessment, and plan of care as document except for any differences below. Patient doing well postextubation now nearly 24 hours. Continues to require OxyMask though this likely can be weaned completely down to nasal cannula. Patient on empiric antibiotics appropriately for possible aspiration event. Precipitating event likely related to his home regimen of medications with a new medication recently instituted. Will adjust current regimen to avoid oversedation in the setting of his OHS/BHAVESH. Patient notably was also noncompliant with his PAP therapy. Patient otherwise remains stable for transfer to medicine [facility] for ongoing monitoring and care prior to transition home. Total critical care time: I personally spent 30 minutes for review of physiologic parameters, directing plan of care, coordination of care with other specialist. Patient remains at significant risk for further morbidity and mortality warranting close monitoring and care of immediately available in the intensive care unit. Patient required critical care services for acute on chronic hypoxic respiratory failure and aspiration pneumonia.
[2025-03-09] MEDS: AZITHROMYCIN 250 MG TABLET 500 MG PO (11:09)
[2025-03-09] MEDS: cefTRIAXone/D5w 1gm IV premix 1 GM/50 ML BAG IV (11:09)
--- NOTE | 2025-03-09 12:02 | PD.RESPRO ---
Documentation for date of: 03/09/25 Subjective Subjective Interval history: Patient was downgraded to the medical floor today from the ICU after being admitted to the ICU on 03/07/2025 due to acute hypoxic and hypercapnic respiratory failure secondary to his CPAP not working well. Patient was intubated initially and the next morning on 03/09/2025 he was extubated as he was able to follow commands that he was doing well on OxyMask afterwards. He was placed on BiPAP overnight and his blood gas improved significantly. Today patient was AO x 3 and had no new complaints. He has not spiked any fevers, but given that he had some mild elevation of WBCs yesterday and on chest x-ray there appears to be some left base pneumonia will place patient on Rocephin and azithromycin for now. Blood cultures have been negative in 24 hours and sputum culture still pending. No other complaints at this time. Exam Vital Signs Temp Pulse Resp BP Pulse Ox O2 Del Method O2 Flow Rate 97.1 F 90 21 H 131/84 H 95 BiPAP 5 03/09/25 08:00 03/09/25 11:01 03/09/25 11:01 03/09/25 11:01 03/09/25 11:01 03/09/25 04:00 03/09/25 10:20 FiO2 40 03/09/25 06:43 Narrative Exam General: A/O x3, no acute distress Eyes: PERRL, EOMI. Anicteric, vision grossly intact. Ears: No ear pain, no ear discharge, Hearing grossly intact. Nose: No nasal discharge. Mouth/Throat: Moist mucous membranes, no redness, no lesions. Neck: Neck supple, non-tender, no cervical lymphadenopathy. Lungs: Clear MERCY to auscultation and percussion, No accessory muscle use. Cardio: Normal S1/S2, regular rhythm, no murmurs, no JVD Abdomen: Soft, but distended, non-tender, no palpable masses, peristalsis present, no guarding or rebound. Extremities: Symmetrical, no significant deformities, no peripheral edema , non-tender, peripheral pulses presents. Skin: No rashes, no lesions, warm to touch. Neuro: No focal neurological deficits. motor and sensory intact Objective Labs 03/10/25 05:54 03/10/25 05:54 Labs: Laboratory Results - last 24 hr 03/09/25 03/09/25 04:40 05:00 WBC 10.3 RBC 5.14 Hgb 14.3 Hct 44.8 MCV 87 MCH 27.8 MCHC 31.9 RDW Std Deviation 51.0 H Plt Count 174 D Neut % (Auto) 76 Lymph % (Auto) 16 [place] % (Auto) 7 Eos % (Auto) 1 Baso % (Auto) 1 Neut # (Auto) 7.8 H Lymph # (Auto) 1.6 [place] # (Auto) 0.7 Eos # (Auto) 0.1 Baso # (Auto) 0.1 Immature Gran # (Auto) 0.05 H Absolute Nucleated RBC 0.00 Immature Gran % 1 H Nucleated RBC % 0 Puncture Site Left Radial ABG pH 7.41 ABG pCO2 53 H ABG pO2 69 L ABG HCO3 33 H ABG O2 Saturation 95 ABG Base Excess 7 H FiO2 40 Sodium 141 Potassium 4.0 D Chloride 100 Carbon Dioxide 31.8 H Anion Gap 9 BUN 25 H Creatinine 1.0 Estim Creat Clear Calc 129.7 eGFR > 60 BUN/Creatinine Ratio 25 H Glucose 118 H D Calculated Osmolality 286 Calcium 8.3 Corrected Calcium 8.3 L Phosphorus 3.4 Magnesium 2.0 Total Bilirubin 0.4 AST 41 H ALT 70 H Alkaline Phosphatase 85 Total Protein 7.0 Albumin 4.0 Globulin 3.0 Albumin/Globulin Ratio 1.3 ABG Interpretation ABG results: 03/07/25 03/07/25 03/07/25 15:50 19:27 22:21 ABG pH 7.30 L 7.26 L 7.29 L ABG pCO2 65 H 72 H* 67 H ABG pO2 72 L 135 H D 85 D ABG HCO3 32 H 32 H 32 H ABG O2 Saturation 94 99 H 97 ABG Base Excess 3 3 3 03/08/25 03/08/25 03/09/25 04:19 07:31 05:00 ABG pH 7.26 L 7.32 L 7.41 ABG pCO2 73 H* 61 H D 53 H ABG pO2 77 L 72 L 69 L ABG HCO3 33 H 32 H 33 H ABG O2 Saturation 95 94 95 ABG Base Excess 3 4 H 7 H Quality Measures Quality Measures none Assessment & Plan Assessment Current Active Medications: Generic Name Dose Route Start Last Admin Trade Name Freq PRN Reason Stop Dose Admin Acetaminophen 650 mg 03/07/25 19:16 Acetaminophen 325 Mg Tablet PO 04/06/25 19:15 Q6H PRN Fever >101.5 Albuterol/Ipratropium 3 ml 03/07/25 23:00 03/09/25 10:30 Albuterol/Ipratropium (Duoneb) Rt Katarina 3 Ml Nebu INH 04/06/25 22:59 Not Given Q4HRRT JEANNE Azithromycin 500 mg 03/09/25 10:45 03/09/25 11:09 Azithromycin 250 Mg Tablet PO 03/16/25 10:44 500 mg QDAY JEANNE Administration Carvedilol 6.25 mg 03/07/25 21:00 03/09/25 08:15 Carvedilol 3.125 Mg Tablet PO 04/06/25 20:59 6.25 mg BID JEANNE Administration Dextrose 25 ml 03/07/25 19:36 Dextrose 50%-Water Inj 50 Ml Syringe IV 04/06/25 19:35 Q15MIN PRN BG 50-70 responsive npo pt Dextrose 50 ml 03/07/25 19:36 Dextrose 50%-Water Inj 50 Ml Syringe IV 04/06/25 19:35 Q15MIN PRN BG <50 OR BG <70 & pt unresponsive Enoxaparin Sodium 40 mg 03/08/25 09:00 03/09/25 08:15 Enoxaparin Sod Inj 40 Mg/0.4 Ml Syringe SC 03/22/25 08:59 40 mg QDAY JEANNE Administration Haloperidol 5 mg 03/09/25 21:00 Haloperidol 5 Mg Tablet PO 04/08/25 20:59 BID JEANNE Ceftriaxone Sodium/Dextrose 1 gm in 50 mls @ 100 mls/hr 03/09/25 11:00 03/09/25 11:09 Rocephin/D5w 1gm Iv Premix IV 03/16/25 10:59 100 mls/hr QDAY JEANNE Administration Insulin Human Lispro 0 unit 03/08/25 21:00 03/09/25 11:35 Insulin Lispro (Admelog) 1 Unit/0.01 Ml Unit SC 04/07/25 20:59 Not Given ACHS JEANNE Protocol Olanzapine 10 mg 03/09/25 21:00 Olanzapine 5 Mg Tablet PO 04/08/25 20:59 HS JEANNE Ondansetron HCl 4 mg 03/07/25 19:16 Ondansetron Inj 2 Mg/Ml Inj 2 Ml IV 04/06/25 19:15 Q6H PRN NAUSEA OR VOMITING Protocol Pantoprazole Sodium 40 mg 03/07/25 19:30 03/09/25 08:15 Pantoprazole Inj 40 Mg Vial IVP 04/06/25 19:29 40 mg QDAY JEANNE Administration Plan 44-year-old male with past medical history of schizophrenia, hypertension, DM2, BHAVESH, OHA on 2 L of home O2, and obesity was admitted to the ICU on 03/07/2025 due to acute on chronic hypoxic and hypercapnic respiratory failure. Downgraded to the medical floors on 03/09/2025 for further management. #Acute on chronic hypoxic and hypercapnic respiratory failure #Community-acquired pneumonia #BHAVESH #OHA Patient uses a CPAP at home, but had been having issues prior to admission and had not been using this CPAP as per chart review. Could have been due to not using CPAP versus medication induced as patient is on aripiprazole, Haldol, and Zyprexa Patient was intubated on 03/07/2025 and extubated on 03/08/2025 Patient's x-ray that shows a left base pneumonia Plan: Started azithromycin and Rocephin (03/09/2025?) Continue DuoNebs every 4 BiPAP at bedtime #HFpEF (EF 60% on 03/08/2025) #Hx of hypertension Patient had an echocardiogram done that showed an ejection fraction of 60% with normal ventricle size and function Patient's blood pressure has been a little bit on the higher end today Patient does not seem fluid overloaded at this time Plan: Will continue with carvedilol 6.25 mg twice daily #Hx of schizophrenia Will continue patient's Zyprexa 10 mg at at bedtime Will continue Haldol at a lower dose 5 mg twice daily (patient on 10 mg twice daily at home) Will continue to hold patient's aripiprazole given that it could have exacerbated the patient's lethargy and hypersomnolence #Hx of DM2 A1c 6.8% on 03/2025 ISS Hypoglycemia protocol ordered #Low TSH TSH was 0.5 Order free T4 for morning labs Disposition: Patient downgraded to medical floors 03/09/2025 Diet: carb cons low GI prophylaxis: protonix DVT prophylaxis: Lovenox Code: full Case disclosed with Attending Dr. Ela Torres PGY1 Attending Provider Attestation/Addendum I reviewed labs, imaging, EKG, home medications and prior available records. Face to face evaluation was performed by me. I have personally examined the patient and discussed assessment and plan with the IM team. I reviewed the resident note and agree with the plan with exceptions as below. Acute hypercapnic respiratory failure Chronic hypoxic respiratory failure HFpEF Obesity hypoventilation syndrome Community-acquired pneumonia Schizophrenia Continue oxygen and wean off as tolerated Started ceftriaxone/azithromycin Monitor I's and O's Held aripiprazole Continue diuresis Held aripiprazole
--- NOTE | 2025-03-09 13:37 | PC.NURSE ---
transfer to med-surg, report dionicio mcmullen rn, patient awake , alert able to stood up to transfer himself to wheelchair.
[2025-03-09] MEDS: haloperidoL 5 MG TABLET PO (20:25)
[2025-03-09] MEDS: OLANZapine 5 MG TABLET 10 MG PO (20:25)
[2025-03-10] VITALS (8 sets, daily range): BP systolic 123–157; BP diastolic 72–95; PULSE 79–97; RESP 12–22; TEMP 36.2–36.9; O2SAT 91–99; BMI 54.3
[2025-03-10] MEDS: ALBUTEROL/IPRATROPIUM (Duoneb) RT SOL 3 ML NEBU INH ×2 (02:20→06:59)
[2025-03-10 07:06] LABS: Basophils # (Auto) 0.1 Thou/mm3 (0.0-0.2); Basophils % (Auto) 1 % (0-2.5); Eosinophils # (Auto) 0.5 Thou/mm3 (0.0-0.5); Eosinophils % (Auto) 5 % (0-10); Hematocrit 43.9 % (41.0-53.0); Hemoglobin 13.9 g/dL (13.5-16.0); Immature Granulocytes % (Auto) 0 % (0-0); Immature Granulocytes Auto 0.04 Thou/mm3 (0.00-0.00); Lymphocytes # (Auto) 1.7 Thou/mm3 (1.0-4.8); Lymphocytes % (Auto) 19 % (10-50); Mean Corpuscular HGB Conc 31.7 g/dl (31.0-37.0); Mean Corpuscular Hemoglobin 27.7 pg (25.0-35.0); Mean Corpuscular Volume 88 fL (80-100); Monocytes # (Auto) 0.7 Thou/mm3 (0.0-0.8); Monocytes % (Auto) 8 % (0-12); Neutrophils # (Auto) 6.2 Thou/mm3 (1.8-7.7); Neutrophils % (Auto) 68 % (37-80); Nucleated Red Blood Cell % 0 /100 WBC (0); Platelet Count 197 Thou/mm3 (140-440); RDW Standard Deviation 51.2 fL (35.1-43.9); Red Blood Count 5.01 Miln/mm3 (4.50-5.90); White Blood Count 9.1 Thou/mm3 (3.8-10.6)
[2025-03-10 07:29] LABS: Alanine Aminotransferase 77 U/L (10-49); Albumin, Serum 3.9 gm/dL (3.5-5.0); Albumin/Globulin Ratio 1.3 (1.2-2.2); Alkaline Phosphatase 103 U/L (46-116); Anion Gap 10 (7-16); Aspartate Amino Transferase 43 U/L (0-34); BUN/Creatinine Ratio 21 Ratio (12-20); Bilirubin,Total 0.3 mg/dL (0.3-1.2); Blood Urea Nitrogen 21 mg/dL (9-23); Calcium 8.4 mg/dL (8.3-10.6); Calcium (Corrected) 8.5 mg/dL (8.5-10.1); Carbon Dioxide 33.1 mMol/L (20.0-31.0); Chloride 100 mMol/L (98-107); Estimated Creatinine Clearance 134.8 mL/min (>60); Free T4 (Free Thyroxine) 1.15 ng/dL (0.89-1.76); Globulin 2.9 gm/dL (2.3-3.5); Glucose 115 mg/dL (74-106); Osmolality,Calculated 288 (275-295); Phosphorous 4.4 mg/dL (2.4-5.1); Potassium 3.5 mMol/L (3.4-5.1); Sodium 143 mMol/L (136-145); Total Protein 6.8 gm/dL (5.7-8.2); eGFR > 60 See Note
[2025-03-10] MEDS: AZITHROMYCIN 250 MG TABLET 500 MG PO (08:41)
[2025-03-10] MEDS: carVEDILOL 3.125 MG TABLET 6.25 MG PO (08:42)
[2025-03-10] MEDS: ENOXAPARIN SOD INJ 40 MG/0.4 ML SYRINGE SC (08:42)
[2025-03-10] MEDS: PANTOPRAZOLE 40 MG TABLET PO (08:42)
[2025-03-10] MEDS: haloperidoL 5 MG TABLET PO (08:42)
[2025-03-10] MEDS: cefTRIAXone/D5w 1gm IV premix 1 GM/50 ML BAG IV (08:43)
[2025-03-10] MEDS: FUROSEMIDE INJ 10 MG/ML 4ML VIAL 40 MG IVP (10:18)
--- NOTE | 2025-03-10 10:24 | ESDS_ITS ---
Planned Discharge Date 03/10/25 DS: Providers Provider Date of admission: 03/07/25 19:16 Primary care physician: Rod Hernandez PA-C Admitting Provider: Devi Tao MD Attending Provider on Admission: Devi Tao MD Attending Provider on DC: Arias Mahmood MD Discharging Provider: Arias Mahmood MD DS: Diagnosis Problem List Completed Was Problem List Reviewed/Reconciled?: Yes Hospital Course Hospital Course Hospital course: 44-year-old male with past medical history of schizophrenia, hypertension, DM2, BHAVESH, OHA on 2 L of home O2, and obesity was admitted to the ICU on 03/07/2025 due to acute on chronic hypoxic and hypercapnic respiratory failure. Patient was intubated initially and the next morning on 03/09/2025 he was extubated as he was able to follow commands that he was doing well on OxyMask afterwards. He was placed on BiPAP overnight and his blood gas improved significantly. Patient also had a echocardiogram done on 03/08/2025 that which showed EF of 60% with normal ventricle size and function. Downgraded to the medical floors on 03/09/2025 for further management where he did not have any new events and was compliant with his BiPAP. Patient was placed on azithromycin and Rocephin due to some pneumonia seen on chest x-ray, but patient did not spike any fevers nor did he have any spikes in WBC. Blood cultures did not grow anything and sputum culture did not grow anything as well. At this time patient is stable enough to be discharged home. Discharge plan: Please follow-up with your primary care physician within 1 week after discharge. You have been started on azithromycin please follow instructions on package You have been started on Lasix 20mg every day for fluid overload Your haloperidol has been changed from 10 mg twice daily to 5 mg twice daily as it could be contributing to hypersomnolence We have held your aripiprazole on to see your primary care physician as it could be contributing to hypersomnolence as well. Please continue taking all other home medications as prescribed It is of vital importance that you need to use your CPAP at night to avoid CO2 retention and becoming lethargic and confused. Please have your primary care physician refill your CPAP equipment. Please come back to the ED if symptoms persist or worsen. Problem list: #Acute on chronic hypoxic and hypercapnic respiratory failure #Community-acquired pneumonia #BHAVESH #OHA #HFpEF (EF 60% on 03/08/2025) #Hx of hypertension #Hx of schizophrenia #Hx of DM2 Case disclosed with Attending Dr. Ela Torres PGY1 Status at Discharge Overall status at discharge: patient is progressing back to baseline Time Spent with Patient Time attestation: Total time spent providing and/or coordinating discharge services:>35 min Time spent: Greater than 30 minutes Exam Vital Signs Temp Pulse Resp BP Pulse Ox O2 Del Method O2 Flow Rate 98.4 F 94 20 130/72 94 L BiPAP 5 03/10/25 08:00 03/10/25 10:18 03/10/25 08:00 03/10/25 10:18 03/10/25 08:00 03/10/25 08:00 03/09/25 20:00 FiO2 40 03/10/25 07:01 Narrative Exam General: A/O x3, no acute distress Eyes: PERRL, EOMI. Anicteric, vision grossly intact. Ears: No ear pain, no ear discharge, Hearing grossly intact. Nose: No nasal discharge. Mouth/Throat: Moist mucous membranes, no redness, no lesions. Neck: Neck supple, non-tender, no cervical lymphadenopathy. Lungs: Clear MERCY to auscultation and percussion, No accessory muscle use. Cardio: Normal S1/S2, regular rhythm, no murmurs, no JVD Abdomen: Soft, but distended, non-tender, no palpable masses, peristalsis present, no guarding or rebound. Extremities: Symmetrical, no significant deformities, no peripheral edema , non-tender, peripheral pulses presents. Skin: No rashes, no lesions, warm to touch. Neuro: No focal neurological deficits. motor and sensory intact Discharge Plan Plan Patient Disposition: HOME (Self Care) Care Plan Goals: Please follow-up with your primary care physician within 1 week after discharge. You have been started on azithromycin please follow instructions on package You have been started on lasix 20mg every day for fluid overload. Your haloperidol has been changed from 10 mg twice daily to 5 mg twice daily as it could be contributing to hypersomnolence We have held your aripiprazole on to see your primary care physician as it could be contributing to hypersomnolence as well. Please continue taking all other home medications as prescribed It is of vital importance that you use your CPAP at night to avoid CO2 retention and becoming lethargic and confused. Please have your primary care physician refill your CPAP equipment. Please come back to the ED if symptoms persist or worsen. Prescriptions/Referrals Prescriptions/Med Rec: New azithromycin 250 mg tablet See Rx Instructions .ROUTE .COMPLEX Qty: 6 0RF Rx Instructions: For 250 mg dose pack: take 500 mg today (day 1), then 250 mg for 4 days (days 2-5) haloperidol 5 mg tablet 5 mg PO BID Qty: 30 0RF furosemide [Lasix] 20 mg tablet 20 mg PO QAM Qty: 30 0RF Continued metformin 500 mg tablet 500 mg PO BID Patient Comments: TAKE 1 TABLET BY MOUTH TWICE A DAY WITH FOOD fluticasone propionate 44 mcg/actuation HFA aerosol inhaler 44 mcg INHALATION PRN PRN (Reason: sob) cholecalciferol (vitamin D3) 50 mcg (2,000 unit) capsule 50 mcg PO DAILY Patient Comments: TAKE 1 TABLET ORALLY EVERY DAY olanzapine 10 mg tablet 10 mg PO HS Patient Comments: TAKE 1 TABLET BY MOUTH EVERY DAY IN THE EVENING carvedilol 6.25 mg tablet 6.25 mg PO BID gemfibrozil 600 mg tablet 600 mg PO BID Patient Comments: TAKE 1 TABLET BY MOUTH TWICE A DAY 30 MINUTES BEFORE MORNING AND EVENING MEAL loratadine 10 mg tablet 10 mg PO QDAY Patient Comments: TAKE 1 TABLET BY MOUTH EVERY DAY Rybelsus 3 mg tablet 3 mg PO QDAY 30 Days Qty: 30 1RF (DME) FreeStyle Caroline 3 Sensor Device See Rx Instructions .Route Qty: 1 0RF Rx Instructions: As directed Held aripiprazole 2 mg tablet 2 mg PO BID Hold Instructions: Resume on 03/18/25. Hold until you follow up with primary care physician as it could be contributing to hypersomnolence. Patient Comments: TAKE 1 TABLET BY MOUTH EVERY DAY FOR 7 DAYS THEN INCREASE TO 2 TABLETS DAILY Discontinued haloperidol 10 mg tablet 10 mg PO BID Patient Comments: TAKE 1 TABLET BY MOUTH TWICE A DAY Referrals: Rod Hernandez PA-C [Primary Care Provider] - Patient/Caregiver Discharge Instructions Other Discharge Activity Instructions:: Please follow-up with your primary care physician within 1 week after discharge. You have been started on azithromycin please follow instructions on package You have been started on lasix 20mg every day for fluid overload. Your haloperidol has been changed from 10 mg twice daily to 5 mg twice daily as it could be contributing to hypersomnolence We have held your aripiprazole on to see your primary care physician as it could be contributing to hypersomnolence as well. Please continue taking all other home medications as prescribed It is of vital importance that you use your CPAP at night to avoid CO2 retention and becoming lethargic and confused. Please have your primary care physician refill your CPAP equipment. Please come back to the ED if symptoms persist or worsen. Education Materials: Preventing Pneumonia, Treating Pneumonia, CPAP Print Language: Bengali Stand Alone Forms: [employer] Award Info., Patient Portal Info Letter Discharge Order Discharge Orders: Discharge (Routine); Ordered 03/10/25 Ordered By: Faustino Torres Quality Discharge Quality Measures VTE prophylaxis MD Attestestation MD Attestation I reviewed labs, imaging, EKG, home medications and prior available records. Face to face evaluation was performed by me. I have personally examined the patient and discussed assessment and plan with the IM team. I reviewed the resident note and agree with the plan with exceptions as below. Acute hypercapnic respiratory failure Chronic hypoxic respiratory failure HFpEF Obesity hypoventilation syndrome Community-acquired pneumonia Schizophrenia Continue oxygen and wean off as tolerated Continue BiPAP at home Continue azithromycin Continue Lasix 20 mg daily. Outpatient follow-up with cardiology Held aripiprazole. Outpatient follow-up with psychiatry Weight management Time spent is 40 minutes. More than 50% of the time was spent on patient education and coordination of care.
== END 2025-03-10 12:30 | disposition home or self-care (01) | DRG 133 ==
LOC: SERX 18:07 → SERHOLD 19:33 → S2SX 03-08 01:56 → S3SX 03-09 13:27
PROVIDERS: Nurse Practitioner Family; Student in an Organized Health Care Education/Training Program; Admitting Provider Student in an Organized Health Care Education/Training Program; Emergency Provider Emergency Medicine; PCP Physician Assistant; Visit Provider Student in an Organized Health Care Education/Training Program
DX: J96.21 Acute and chronic respiratory failure with hypoxia (principal); E66.2 Morbid (severe) obesity with alveolar hypoventilation; F15.10 Other stimulant abuse, uncomplicated; J18.9 Pneumonia, unspecified organism; E11.9 Type 2 diabetes mellitus without complications; I11.0 Hypertensive heart disease with heart failure; F20.9 Schizophrenia, unspecified; E72.20 Disorder of urea cycle metabolism, unspecified; J96.22 Acute and chronic respiratory failure with hypercapnia; G93.40 Encephalopathy, unspecified; Z68.43 Body mass index [BMI] 50.0-59.9, adult; Z99.81 Dependence on supplemental oxygen; I50.32 Chronic diastolic (congestive) heart failure; Z79.84 Long term (current) use of oral hypoglycemic drugs; R74.01 Elevation of levels of liver transaminase levels; Z87.891 Personal history of nicotine dependence; Z91.199 Patient's noncompliance with other medical treatment and regimen due to unspecified reason
CPT/HCPCS: 36415; 36600; 71045; 80053; 80307; 82140; 82803; 83036; 83605; 83735; 83880; 84100; 84145; 84439; 84443; 84484; 85025; 85610; 85730; 86140; 87040; 87081; 87205; 87811; 93005; 93225; 93306; 94002; 94003; 94640; 94660; 96365; 96375; 99285; A9270; J0295; J0456; J0696; J1650; J1815; J1938; J2470; J2704; J2919; J3010; J3490; J7050

== ENCOUNTER 2025-05-11 10:51 | Emergency (ER) | payer MEDICAID, SELFPAY ==
--- NOTE | 2025-05-11 10:56 | XR_ITS ---
Examination: AP chest single view Technique one AP portable upright chest single view Date and time: May 11, 2025, 11:16 AM Comparison March 08, 2025 Indications: Shortness of breath today. Findings: Mild enlargement cardiac contour Mild vascular congestion. No lobar pneumonia. Intact osseous structures Impression: Mild enlargement cardiac contour. Mild vascular congestion. No lobar pneumonia.
[2025-05-11 11:00] VITALS: PULSE 83; RESP 20; O2SAT 93; BMI 53.2
[2025-05-11 11:02] VITALS: BP 146/97; PULSE 85; RESP 20; TEMP 36.4; O2SAT 94
--- NOTE | 2025-05-11 11:50 | PD.EDADULT ---
ED General RME/HPI General Chief complaint: General Adult/Misc Complain Stated complaint: HIGH BLOOD SUGAR Time Seen by Provider: 05/11/25 10:52 Arrival date/time: 05/11/25 10:51 44 year old male with a history of DM, HTN, and severe sleep apnea. He is brougth in by EMS for reported hyperglycemia at 270. No hypoglycemia noted during transport. No nausea, vomiting, or mental status changes. No falls or injuries. He is on supplental o2, 4L via [place] at baseline. Has no cough or dyspnea. Mode of arrival: EMS Limitations: no limitations Related Data Home Medications ?Medication ?Instructions ?Recorded ?Confirmed carvedilol 6.25 mg tablet 6.25 mg PO BID 02/15/24 12/09/24 gemfibrozil 600 mg tablet 600 mg PO BID 02/15/24 12/09/24 loratadine 10 mg tablet 10 mg PO QDAY 02/15/24 12/09/24 aripiprazole 2 mg tablet 2 mg PO BID 12/03/24 12/03/24 Held on 03/10/25. Instructions: Resume on 03/18/25. Hold until you follow up with primary care physician as it could be contributing to hypersomnolence. cholecalciferol (vitamin D3) 50 50 mcg PO DAILY 12/03/24 12/09/24 mcg (2,000 unit) capsule fluticasone propionate 44 44 mcg inhalation PRN PRN sob 12/03/24 12/09/24 mcg/actuation HFA aerosol inhaler metformin 500 mg tablet 500 mg PO BID 12/03/24 12/09/24 olanzapine 10 mg tablet 10 mg PO HS 12/04/24 12/04/24 Previous Rx's ?Medication ?Instructions ?Recorded blood-glucose sensor (FreeStyle #1 ea 10/30/24 Caroline 3 Sensor device) semaglutide 3 mg tablet (Rybelsus) 3 mg PO QDAY 30 days #30 tabs 10/30/24 azithromycin 250 mg tablet See Rx Instructions PO .COMPLEX #6 03/10/25 tabs furosemide 20 mg tablet (Lasix) 20 mg PO QAM #30 tabs 03/10/25 haloperidol 5 mg tablet 5 mg PO BID #30 tabs 03/10/25 Allergies Allergy/AdvReac Type Severity Reaction Status Date / Time No Known Allergies Allergy Unverified 02/16/24 08:13 Review of Systems Review of Systems Systems Reviewed: All systems reviewed, normal except as documented ED Exam General Limitations: Present no limitations General appearance: Present alert and in no apparent distress Head Head exam: Present atraumatic Eye Eye exam: Present normal appearance, PERRL and EOMI ENT ENT exam: Present normal exam, normal oropharynx and mucous membranes moist Neck Neck exam: Present normal inspection, full ROM and trachea midline Chest Chest inspection: Present normal inspection and symmetric chest wall rise Respiratory Respiratory exam: Present normal lung sounds bilaterally Cardiovascular Cardiovascular exam: Present regular rate, normal rhythm and normal heart sounds Abdominal Exam Abdominal exam: Present soft and normal bowel sounds Extremities Exam Extremities exam: Present normal inspection and full ROM Back Exam Back exam: Present normal inspection and full ROM Neurological Exam Neurological exam: Present alert and oriented X3 Psychiatric Psychiatric exam: Present normal affect and normal mood Skin Skin exam: Present warm, dry, intact and normal color Course Quality Measures none Orders Category Date Time Status XR chest 1V Stat Exams 05/11/25 10:56 Completed Alcohol, Blood Medical Stat Lab 05/11/25 11:45 Completed CBC Stat Lab 05/11/25 11:45 Completed CMP [Comprehensive Metabolic Panel] Stat Lab 05/11/25 11:45 Completed Ketone [Beta Hydroxybutyrate] Stat Lab 05/11/25 11:45 Completed Lipase Stat Lab 05/11/25 11:45 Completed UA [Urinalysis] Stat Lab 05/11/25 12:20 Completed Vital Signs Vital signs: Vital Signs Temperature 97.5 F 05/11/25 11:02 Pulse Rate 85 05/11/25 11:02 Respiratory Rate 20 05/11/25 11:02 Blood Pressure 146/97 H 05/11/25 11:02 Pulse Oximetry (%) 94 L 05/11/25 11:02 Oxygen Delivery Method Nasal Cannula 05/11/25 11:02 Oxygen Flow Rate 4 05/11/25 11:02 Discharge Plan Plan Patient Disposition: HOME (Self Care) Patient condition on transfer: Stable Prescriptions/Referrals Prescriptions/Med Rec: No Action metformin 500 mg tablet 500 mg PO BID Patient Comments: TAKE 1 TABLET BY MOUTH TWICE A DAY WITH FOOD fluticasone propionate 44 mcg/actuation HFA aerosol inhaler 44 mcg INHALATION PRN PRN (Reason: sob) aripiprazole 2 mg tablet 2 mg PO BID Patient Comments: TAKE 1 TABLET BY MOUTH EVERY DAY FOR 7 DAYS THEN INCREASE TO 2 TABLETS DAILY cholecalciferol (vitamin D3) 50 mcg (2,000 unit) capsule 50 mcg PO DAILY Patient Comments: TAKE 1 TABLET ORALLY EVERY DAY olanzapine 10 mg tablet 10 mg PO HS Patient Comments: TAKE 1 TABLET BY MOUTH EVERY DAY IN THE EVENING carvedilol 6.25 mg tablet 6.25 mg PO BID gemfibrozil 600 mg tablet 600 mg PO BID Patient Comments: TAKE 1 TABLET BY MOUTH TWICE A DAY 30 MINUTES BEFORE MORNING AND EVENING MEAL loratadine 10 mg tablet 10 mg PO QDAY Patient Comments: TAKE 1 TABLET BY MOUTH EVERY DAY Rybelsus 3 mg tablet 3 mg PO QDAY 30 Days Qty: 30 1RF (DME) FreeStyle Caroline 3 Sensor Device See Rx Instructions .Route Qty: 1 0RF Rx Instructions: As directed azithromycin 250 mg tablet See Rx Instructions .ROUTE .COMPLEX Qty: 6 0RF Rx Instructions: For 250 mg dose pack: take 500 mg today (day 1), then 250 mg for 4 days (days 2-5) haloperidol 5 mg tablet 5 mg PO BID Qty: 30 0RF furosemide [Lasix] 20 mg tablet 20 mg PO QAM Qty: 30 0RF Referrals: Rod Hernandez PA-C [Primary Care Provider] - In 1 week Problem List Clinical Impression: Hyperglycemia Patient/Caregiver Discharge Instructions Education Materials: Glucose Check Steps Additional Instructions: - Continue current therapies. - Follow-up with your primary clinic next week for recheck. - Return at anytime for any worsening or emergent changes. Print Language: Wolof Stand Alone Forms: [employer] Award Info., Patient Portal Info Letter MDM Narrative [facility] hospital course: 05/11/25 10:51 44 year old male with a history of DM, HTN, and severe sleep apnea. He is brougth in by EMS for reported hyperglycemia at 270. No hypoglycemia noted during transport. No nausea, vomiting, or mental status changes. No falls or injuries. He is on supplental o2, 4L via [place] at baseline. Has no cough or dyspnea. On exam, patient is nontoxic-appearing in no visible signs stress. Vital signs are stable. His blood sugars have been stabilized throughout the ER. He observed for several hours and had no acute changes. I do believe the patient be discharged from the ER at this time. He will continue to monitor his blood sugars at home. Return as needed for any worsening emergent changes. Clinical Information Provided by patient and EMS Medical Records Reviewed [facility] Meds/Rx Considered, not Ordered None Labs/Rad/Tests considered, not Ordered None Chronic Illness/Social Conditions which may negatively complicate care or outcome(s)-explain: None or not applicable Lab Interpretation Lab(s) interpretation(s): No leukocytosis or anemia. No evidence of diabetic ketoacidosis. He is not acidotic at this time. Beta hydroxybutyrate is unremarkable. Diagnosis Differential diagnosis: Hyperglycemia, hypoglycemia Dispositon Disposition: Discharge Home
[2025-05-11 12:15] LABS: Basophils # (Auto) 0.1 Thou/mm3 (0.0-0.2); Basophils % (Auto) 1 % (0-2.5); Eosinophils # (Auto) 0.5 Thou/mm3 (0.0-0.5); Eosinophils % (Auto) 6 % (0-10); Hematocrit 44.9 % (41.0-53.0); Hemoglobin 14.4 g/dL (13.5-16.0); Immature Granulocytes Auto 0.07 Thou/mm3 (0.00-0.00); Lymphocytes # (Auto) 1.7 Thou/mm3 (1.0-4.8); Lymphocytes % (Auto) 19 % (10-50); Mean Corpuscular HGB Conc 32.1 g/dl (31.0-37.0); Mean Corpuscular Hemoglobin 28.1 pg (25.0-35.0); Mean Corpuscular Volume 88 fL (80-100); Monocytes # (Auto) 0.5 Thou/mm3 (0.0-0.8); Monocytes % (Auto) 6 % (0-12); Neutrophils # (Auto) 6.0 Thou/mm3 (1.8-7.7); Neutrophils % (Auto) 67 % (37-80); Nucleated Red Blood Cell # 0.00 Thou/mm3 (0.00-0.00); Nucleated Red Blood Cell % 0 /100 WBC (0); Platelet Count 194 Thou/mm3 (140-440); RDW Standard Deviation 50.7 fL (35.1-43.9); Red Blood Count 5.13 Miln/mm3 (4.50-5.90); White Blood Count 8.8 Thou/mm3 (3.8-10.6)
[2025-05-11 12:21] LABS: Beta Hydroxybutyrate 0.0 mmol/L (<0.6)
[2025-05-11 12:46] LABS: Collection Type, Urine Voided; Squamous Epithelial Cell,Urine 0 /hpf (0-5)
[2025-05-11 12:47] LABS: Alanine Aminotransferase 81 U/L (10-49); Albumin, Serum 4.1 gm/dL (3.5-5.0); Albumin/Globulin Ratio 1.3 (1.2-2.2); Alcohol, Blood Medical < 3.0 mg/dL (0-10.0); Alkaline Phosphatase 127 U/L (46-116); Anion Gap 9 (7-16); Aspartate Amino Transferase 36 U/L (0-34); BUN/Creatinine Ratio 13 Ratio (12-20); Bilirubin,Total 0.4 mg/dL (0.3-1.2); Blood Urea Nitrogen 10 mg/dL (9-23); Calcium 8.5 mg/dL (8.3-10.6); Calcium (Corrected) 8.5 mg/dL (8.5-10.1); Carbon Dioxide 27.8 mMol/L (20.0-31.0); Chloride 103 mMol/L (98-107); Creatinine (Component) 0.8 mg/dL (0.6-1.3); Estimated Creatinine Clearance 168.9 mL/min (>60); Globulin 3.2 gm/dL (2.3-3.5); Glucose 187 mg/dL (74-106); Lipase 31 U/L (12-53); Osmolality,Calculated 283 (275-295); Potassium 3.8 mMol/L (3.4-5.1); Sodium 140 mMol/L (136-145); Total Protein 7.3 gm/dL (5.7-8.2); eGFR > 60 See Note
[2025-05-11 12:51] LABS: Bilirubin,Urine Negative (Negative); Blood,Urine Negative (Negative); Clarity,Urine Clear (Clear/Hazy); Color,Urine Colorless (Lt Yel-Yel); Glucose, Urine Negative (Negative); Ketones,Urine Negative (Negative); Leukocyte Esterase,Urine Negative (Negative); Nitrite,Urine Negative (Negative); PH,Urine 6.0 (5.0-7.0); Protein,Urine Negative (Neg - Trace); RBC,Urine 2 /hpf (0-3); Specific Gravity,Urine 1.011 (1.001-1.035); Urobilinogen,Urine Negative mg/dL (0.0-1.0); WBC,Urine < 1 /hpf (0-5)
[2025-05-11 12:54] VITALS: BP 120/90; PULSE 80; RESP 19; O2SAT 93
--- NOTE | 2025-05-11 15:03 | PC.NURSE ---
attempted to call mother 3x for pickup no answer.
== END 2025-05-11 13:10 | disposition home or self-care (01) ==
PROVIDERS: Physician Assistant Medical; Emergency Provider Emergency Medicine; PCP Physician Assistant
DX: E11.65 Type 2 diabetes mellitus with hyperglycemia (principal); Z79.84 Long term (current) use of oral hypoglycemic drugs
CPT/HCPCS: 36415; 71045; 80053; 80320; 81001; 82010; 83690; 85025; 99283; G0480

== ENCOUNTER 2025-05-27 01:21 | Inpatient (IN) | payer MEDICAID, SELFPAY ==
[2025-05-27] VITALS (62 sets, daily range): BP systolic 106–169; BP diastolic 57–98; PULSE 79–117; RESP 1–37; TEMP 36.1–37; O2SAT 88–99
--- NOTE | 2025-05-27 01:32 | PD.EDSOB ---
ED SOB =RME/HPI General Chief Complaint: Shortness of Breath/Dyspnea Stated Complaint: SOB Arrival date/time: 05/27/25 01:21 RME / HPI RME / HPI Narrative: This section includes all my notes and documentations, including HPI, PE, and ED course. Arnulfo Palmer MD HPI: 44yo male JASONA from home here with several days of worsening cough, productive cough, purulent sputum, and dyspnea. Worse in the past few hours. He did a breathing treatment at home without improvement. With EMS, patient was saturating at 88% room air and improved up to the 90s after he received 3 breathing treatments. No chest pain or cough. Uses CPAP at home. No tobacco or alcohol use. No other complaints reported. ROS: All negative except as documented in HPI. Physical Exam: General: Patient is lethargic. Eyes: Conjunctivae and lids clear. ENT: No nasal congestion. Neck: Supple. Heart: RRR. Lungs: No respiratory distress. Moderately decreased air movement with wheezing. Abdomen: Soft and nontender. Skin: Warm and dry. Neuro: Lethargic but oriented. Cranial nerves II to XII grossly normal. No peripheral motor deficits. I reviewed EMS notes. I reviewed all diagnostic test results. My interpretation of the EKG is sinus rhythm with nonspecific ST-T changes. My interpretation of the chest x-ray is infiltrates, official radiology reading is pending. Blood tests unremarkable, including negative troponin/D-dimer/BNP. ABG showed pH 7.21, pCO2 63, pHCO3 31. At this point, diagnoses include: Acute respiratory failure with hypoxia and hypercapnia Pneumonia Treatment here included BiPAP, Solumedrol, Xopenex, Rocephin, Azithromycin, and NS. No significant improvement noted. I discussed the case with our hospitalist. About the presentation and exam and diagnostics and treatments here. And need of further care in the hospital. Will accept the patient. Arnulfo Palmer MD Related Data Home Medications ?Medication ?Instructions ?Recorded ?Confirmed carvedilol 6.25 mg tablet 6.25 mg PO BID 02/15/24 12/09/24 gemfibrozil 600 mg tablet 600 mg PO BID 02/15/24 12/09/24 loratadine 10 mg tablet 10 mg PO QDAY 02/15/24 12/09/24 aripiprazole 2 mg tablet 2 mg PO BID 12/03/24 12/03/24 Held on 03/10/25. Instructions: Resume on 03/18/25. Hold until you follow up with primary care physician as it could be contributing to hypersomnolence. cholecalciferol (vitamin D3) 50 50 mcg PO DAILY 12/03/24 12/09/24 mcg (2,000 unit) capsule fluticasone propionate 44 44 mcg inhalation PRN PRN sob 12/03/24 12/09/24 mcg/actuation HFA aerosol inhaler metformin 500 mg tablet 500 mg PO BID 12/03/24 12/09/24 olanzapine 10 mg tablet 10 mg PO HS 12/04/24 12/04/24 Previous Rx's ?Medication ?Instructions ?Recorded blood-glucose sensor (FreeStyle #1 ea 10/30/24 Caroline 3 Sensor device) semaglutide 3 mg tablet (Rybelsus) 3 mg PO QDAY 30 days #30 tabs 10/30/24 azithromycin 250 mg tablet See Rx Instructions PO .COMPLEX #6 03/10/25 tabs furosemide 20 mg tablet (Lasix) 20 mg PO QAM #30 tabs 03/10/25 haloperidol 5 mg tablet 5 mg PO BID #30 tabs 03/10/25 Allergies Allergy/AdvReac Type Severity Reaction Status Date / Time No Known Allergies Allergy Unverified 02/16/24 08:13 Review of Systems Review of Systems Systems Reviewed: All systems reviewed, normal except as documented Past Medical History Past Medical History NEUROLOGIC: Negative Neurological Disorders or Seizures CARDIAC: Positive Cardiac Disorders, Hypercholesterolemia and Hypertension; Negative Congestive Heart Failure RESPIRATORY: Positive Chronic Obstructive Pulmonary Disease (COPD), Asthma and Sleep Apnea GASTROINTESTINAL: Negative Gastrointestinal Disorders GENITOURINARY: Negative Genitourinary Disorders or Renal Disease MUSCULOSKELETAL: Negative Musculoskeletal Disorders ENDOCRINE: Positive Endocrine Disorders and Diabetes Mellitus Type 2; Negative Diabetes Mellitus Type 1 HEMATOLOGIC: Negative Blood Disorders or Sickle Cell Disease PSYCHO/SOCIAL: Positive Schizophrenia and Recreational Drug Use (meth) OTHER HISTORY: Positive Chicken Pox; Negative Blood Transfusions, Blood Transfusion Reaction, Anesthesia Reactions or Cancer Family History FAMILY HISTORY: Negative Family Cardiac Disorders Social History SMOKING STATUS: Never smoker SECOND HAND EXPOSURE: No ED Exam Narrative Physical exam: As noted in HPI. Course Course Course Narrative: CXR is ordered for determining the etiology of shortness of breath. Quality Measures none Orders Category Date Time Status Bedside COVID-19 Antigen Test NOW Care 05/27/25 01:36 Active Bedside COVID-19 Antigen Test NOW Care 05/27/25 03:34 Completed Bedside Influenza A&B Antigen Test NOW Care 05/27/25 01:36 Completed COVID-19 Screening Questionnaire NOW Care 05/27/25 03:[address] Screening NOW Care 05/27/25 01:47 Completed EKG (ED ONLY) *Do not use* NOW Care 05/27/25 01:47 Completed Saline [Insert IV] NOW Care 05/27/25 01:36 Active Referral Respiratory Therapy Stat Cons 05/27/25 02:34 Active EKG (ED Only) Stat Exams 05/27/25 01:47 Ordered XR chest 1V portable Stat Exams 05/27/25 01:47 Taken ABG [Arterial Blood Gas] Stat Lab 05/27/25 02:45 Completed Alcohol, Blood Medical Stat Lab 05/27/25 01:56 Completed BNP [B-Type Natriuretic Peptide] Stat Lab 05/27/25 01:56 Completed Bilirubin,Direct Stat Lab 05/27/25 01:56 Completed CBC Stat Lab 05/27/25 01:56 Completed CMP [Comprehensive Metabolic Panel] Stat Lab 05/27/25 01:56 Completed D-Dimer Stat Lab 05/27/25 01:56 Completed Drug Screen,Urine Stat Lab 05/27/25 01:48 Ordered Magnesium Stat Lab 05/27/25 01:56 Completed Troponin I Stat Lab 05/27/25 01:56 Completed UA, C/S IF [Urinalysis, C/S if Indicated] Stat Lab 05/27/25 01:48 Ordered Azithromycin Inj [Zithromax Inj] 500 mg Med 05/27/25 02:33 Discontinued Sodium Chloride 0.9% 250 ml [Ns] 250 ml IV X1 Levalbuterol Rt [Xopenex Rt Katarina] Med 05/27/25 01:46 Discontinued 2.5 mg INH X1 ONE MethylPREDNISolone.* [SoluMEDROL Inj] Med 05/27/25 01:46 Discontinued 125 mg IVP X1 ONE Sodium Chloride Rt Katarina 0.9% [NS Rt Katarina 0.9%] Med 05/27/25 01:46 Active 6 ml INH PRN PRN cefTRIAXone/D5w 1gm IV premix [Rocephin/D5w 1gm IV Med 05/27/25 02:33 Discontinued premix] 1 gm in 50 ml IV X1 BiPAP / CPAP NOW RT 05/27/25 02:33 Active Vital Signs Vital signs: Vital Signs Temperature 98.6 F 05/27/25 01:26 Pulse Rate 87 05/27/25 01:26 Respiratory Rate 14 05/27/25 01:26 Blood Pressure 151/88 H 05/27/25 01:26 Pulse Oximetry (%) 94 L 05/27/25 01:26 Oxygen Delivery Method Nasal Cannula 05/27/25 01:26 Oxygen Flow Rate 4 05/27/25 01:26 Shortness of Breath / Dyspnea MDM Narrative MDM Narrative:: 44yo male BIBA from home here with several days of worsening cough, productive cough, purulent sputum, and dyspnea. Worse in the past few hours. He did a breathing treatment at home without improvement. With EMS, patient was saturating at 88% room air and improved up to the 90s after he received 3 breathing treatments. No chest pain or cough. Uses CPAP at home. No tobacco or alcohol use. No other complaints reported. Patient data External records reviewed:: [facility] previous records (Per chart review, patient was seen here on 05/11/25 for hyperglycemia.) and EMS form Clinical information provided by:: patient and EMS Social determinants that could affect healthcare access:: none Patient has the following chronic illnesses:: DM, HTN, HLD How is presenting disease/condition affected by chronic disease/condition?: uneffected by Evaluation data The following diagnostics were reviewed and interpreted by me:: lab results, radiology exam(s) and EKG tracing(s) (My interpretation of the EKG is: Sinus rhythm (83 bpm) with nonspecific ST-T changes. Arnulfo Palmer MD) Lab and/or radiology exams considered but not ordered:: none Interpretation Summary: I reviewed all diagnostic test results. My interpretation of the EKG is sinus rhythm with nonspecific ST-T changes. My interpretation of the chest x-ray is infiltrates, official radiology reading is pending. Blood tests unremarkable, including negative troponin/D-dimer/BNP. ABG showed pH 7.21, pCO2 63, pHCO3 31. Medications / Prescriptions Medications or Prescriptions considered but not ordered:: none Medication administrations:: Medication Administration History Sodium Chloride (Sodium Chloride Rt Katarina 0.9% 3 Ml Nebu) 6 ml INH PRN PRN PRN Reason: SOLN Stop: 06/26/25 01:45 Last Admin: 05/27/25 02:39 Dose: 6 ml Documented By: OCHOA Discontinued Medications Ceftriaxone Sodium/Dextrose (Rocephin/D5w 1gm Iv Premix) 1 gm in 50 mls @ 100 mls/hr IV X1 ONE Stop: 05/27/25 03:02 Last Infusion: 05/27/25 03:08 Dose: Infused Documented By: Admin: 05/27/25 02:38 Dose: 100 mls/hr Documented By: RAFAEL Azithromycin 500 mg/ Sodium (Chloride) 250 mls @ 250 mls/hr IV X1 ONE Stop: 05/27/25 03:32 Last Admin: 05/27/25 03:00 Dose: 250 mls/hr Documented By: RAFAEL Levalbuterol HCl (Levalbuterol Rt 1.25 Mg/0.5 Ml Nebu) 2.5 mg INH X1 ONE Stop: 05/27/25 01:47 Last Admin: 05/27/25 02:39 Dose: 2.5 mg Documented By: OCHOA Methylprednisolone Sodium Succinate (Methylprednisolone Sod Succ 62.5 Mg/Ml 2ml Vial) 125 mg IVP X1 ONE Stop: 05/27/25 01:47 Last Admin: 05/27/25 02:09 Dose: 125 mg Documented By: RAFAEL BiPAP, Solumedrol, Xopenex, Rocephin, Azithromycin, NS Consultations Consultation(s) initiated? (list below): Yes Consultation #1 (Physician, Specialty, Details): I discussed the case with our hospitalist. About the presentation and exam and diagnostics and treatments here. And need of further care in the hospital. Will accept the patient. Diagnosis Shortness of Breath Differential Diagnosis: acute exacerbation of chronic obstructive airways disease, congestive heart failure, community acquired pneumonia, asthma with exacerbation and pulmonary embolism Most likely diagnosis given after review of the tests above:: Acute respiratory failure with hypoxia and hypercapnia Pneumonia Admission Indicated Admission indicated?: indicated Explain why admission is indicated or not indicated:: Acute respiratory failure with hypoxia and hypercapnia Admission Request Was there a request for admission?: Yes Admission Attestation Admission request attestation: Discussed case with Hospitalist service regarding admission. Discussed patients ED course, exam findings, labs, and radiology results. The Hospitalist [agrees] to accept the patient for admission. Disposition Plan Disposition Plan: Admit Discharge Plan Plan Patient Disposition: Admit Acute Care w/in Hospital Prescriptions/Referrals Prescriptions/Med Rec: No Action metformin 500 mg tablet 500 mg PO BID Patient Comments: TAKE 1 TABLET BY MOUTH TWICE A DAY WITH FOOD fluticasone propionate 44 mcg/actuation HFA aerosol inhaler 44 mcg INHALATION PRN PRN (Reason: sob) aripiprazole 2 mg tablet 2 mg PO BID Patient Comments: TAKE 1 TABLET BY MOUTH EVERY DAY FOR 7 DAYS THEN INCREASE TO 2 TABLETS DAILY cholecalciferol (vitamin D3) 50 mcg (2,000 unit) capsule 50 mcg PO DAILY Patient Comments: TAKE 1 TABLET ORALLY EVERY DAY olanzapine 10 mg tablet 10 mg PO HS Patient Comments: TAKE 1 TABLET BY MOUTH EVERY DAY IN THE EVENING carvedilol 6.25 mg tablet 6.25 mg PO BID gemfibrozil 600 mg tablet 600 mg PO BID Patient Comments: TAKE 1 TABLET BY MOUTH TWICE A DAY 30 MINUTES BEFORE MORNING AND EVENING MEAL loratadine 10 mg tablet 10 mg PO QDAY Patient Comments: TAKE 1 TABLET BY MOUTH EVERY DAY Rybelsus 3 mg tablet 3 mg PO QDAY 30 Days Qty: 30 1RF (DME) FreeStyle Caroline 3 Sensor Device See Rx Instructions .Route Qty: 1 0RF Rx Instructions: As directed azithromycin 250 mg tablet See Rx Instructions .ROUTE .COMPLEX Qty: 6 0RF Rx Instructions: For 250 mg dose pack: take 500 mg today (day 1), then 250 mg for 4 days (days 2-5) haloperidol 5 mg tablet 5 mg PO BID Qty: 30 0RF furosemide [Lasix] 20 mg tablet 20 mg PO QAM Qty: 30 0RF Referrals: No Primary/Family,Physician [Primary Care Provider] - In 1 week Problem List Clinical Impression: Acute respiratory failure with hypoxia and hypercapnia Patient/Caregiver Discharge Instructions Print Language: [place] Citizen Stand Alone Forms: Domitila Award Info., Patient Portal Info Letter
--- NOTE | 2025-05-27 01:47 | EKG_ITS ---
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
--- NOTE | 2025-05-27 01:47 | XR_ITS ---
Exam: Chest portable single view Technique: AP port semiupright single view Indications: SOB today Date: 05/27/2025 85089 hrs Findings: Enlarged cardiac contour with vascular congestion: Right base pneumonia Moderate osteopenia IMpression: Mild heart failure Right base pneumonia
[2025-05-27 02:05] LABS: Basophils # (Auto) 0.0 Thou/mm3 (0.0-0.2); Basophils % (Auto) 0 % (0-2.5); Eosinophils # (Auto) 0.5 Thou/mm3 (0.0-0.5); Eosinophils % (Auto) 4 % (0-10); Hematocrit 42.7 % (41.0-53.0); Hemoglobin 14.0 g/dL (13.5-16.0); Immature Granulocytes Auto 0.05 Thou/mm3 (0.00-0.00); Lymphocytes # (Auto) 1.8 Thou/mm3 (1.0-4.8); Lymphocytes % (Auto) 16 % (10-50); Mean Corpuscular HGB Conc 32.8 g/dl (31.0-37.0); Mean Corpuscular Hemoglobin 27.8 pg (25.0-35.0); Mean Corpuscular Volume 85 fL (80-100); Monocytes # (Auto) 0.7 Thou/mm3 (0.0-0.8); Monocytes % (Auto) 6 % (0-12); Neutrophils # (Auto) 7.9 Thou/mm3 (1.8-7.7); Neutrophils % (Auto) 72 % (37-80); Nucleated Red Blood Cell # 0.00 Thou/mm3 (0.00-0.00); Nucleated Red Blood Cell % 0 /100 WBC (0); Platelet Count 211 Thou/mm3 (140-440); RDW Standard Deviation 50.4 fL (35.1-43.9); Red Blood Count 5.03 Miln/mm3 (4.50-5.90); White Blood Count 10.9 Thou/mm3 (3.8-10.6)
[2025-05-27] MEDS: MethylPREDNISolone SOD SUCC 62.5 MG/ML 2ML VIAL 125 MG IVP (02:09)
[2025-05-27 02:27] LABS: D-Dimer < 250 ng/mL (<600)
[2025-05-27 02:28] LABS: B-Type Natriuretic Peptide < 20 pg/mL (0-100)
[2025-05-27] MEDS: cefTRIAXone/D5w 1gm IV premix 1 GM/50 ML BAG IV (02:38)
[2025-05-27] MEDS: LEVALBUTEROL RT 1.25 MG/0.5 ML NEBU 2.5 MG INH (02:39)
[2025-05-27] MEDS: SODIUM CHLORIDE RT SOL 0.9% 3 ML NEBU 6 ML INH (02:39)
[2025-05-27 02:44] LABS: Alanine Aminotransferase 76 U/L (10-49); Albumin, Serum 4.1 gm/dL (3.5-5.0); Albumin/Globulin Ratio 1.4 (1.2-2.2); Alcohol, Blood Medical < 3.0 mg/dL (0-10.0); Alkaline Phosphatase 110 U/L (46-116); Anion Gap 8 (7-16); Aspartate Amino Transferase 38 U/L (0-34); BUN/Creatinine Ratio 13 Ratio (12-20); Bilirubin,Direct 0.1 mg/dL (0.0-0.3); Bilirubin,Total 0.4 mg/dL (0.3-1.2); Blood Urea Nitrogen 13 mg/dL (9-23); Calcium 8.7 mg/dL (8.3-10.6); Calcium (Corrected) 8.7 mg/dL (8.5-10.1); Carbon Dioxide 30.5 mMol/L (20.0-31.0); Chloride 103 mMol/L (98-107); Creatinine (Component) 1.0 mg/dL (0.6-1.3); Globulin 3.0 gm/dL (2.3-3.5); Glucose 127 mg/dL (74-106); Magnesium 1.9 mg/dL (1.6-2.6); Osmolality,Calculated 283 (275-295); Potassium 4.0 mMol/L (3.4-5.1); Sodium 141 mMol/L (136-145); Total Protein 7.1 gm/dL (5.7-8.2); Troponin I < 0.002 ng/mL (0.0-0.045); eGFR > 60 See Note
[2025-05-27] MEDS: AZITHROMYCIN INJ 500 MG in SODIUM CHLORIDE 0.9% 250 ML 250 ML 250 MG IV (03:00)
[2025-05-27 03:01] LABS: Base Excess 3 (-3-3); HCO3 31 mEq/L (20-26); Inspired Oxygen, FIO2 21 %; O2 Saturation 98 % (91-98); PCO2 63 mmHg (32.0-48.0); PO2 100 mmHg (83-108); pH, Arterial 7.31 (7.35-7.45)
[2025-05-27 03:03] LABS: Allen Test Performed/OK; Puncture Site Right Radial
--- NOTE | 2025-05-27 04:14 | ESHP_ITS ---
Documentation for date of: 05/27/25 [facility] History of Present Illness History of present illness: Zay Reyes is a 44-year-old male with a PMH of morbid obesity, schizophrenia, hypertension, T2DM, BHAVESH on CPAP, and obesity hypoventilation syndrome on 2 L baseline of O2 who was BIBA for several days of worsening cough productive of purulent sputum and dyspnea. History was obtained primarily through chart review due to the fact that patient was somnolent during interview and could not respond adequately to questioning. According to ED note, patient received a breathing treatment at home without improvement and his respiratory distress worsened in the past few hours. Patient was apparently saturating at 88% on room air and improved up to the 90s after he received 3 breathing treatments. Although the EMS report described a productive cough as part of patient's presentation, the ED physician reported in his note that patient did not endorse chest pain or cough when the ED physician interviewed him. At this time, patient also denied any other symptoms as well as any tobacco or alcohol use. In the ED, vitals showed: BP 151/88 HR 87 RR 14 Temp 98.6 SpO2 94% on 4 L nasal cannula with 40% FiO2 ED Course: CBC showed slightly elevated WBC 10.9 but was otherwise unremarkable. ABG showed low blood pH 7.31, high pCO2 63, normal pO2 100, and high HCO3 31. CMP showed slightly elevated blood glucose 127, slightly elevated AST 38, and high ALT 76. U tox was negative. Imaging: Chest x-ray has been ordered but has not been read yet by radiology. Based on this securities underwriter's preliminary read, there seems to be some bilateral blunting of the costophrenic angles, possibly suggesting bilateral pleural effusion. In the ED, patient was given a loading dose of IV Solu-Medrol 125 mg x 1, IV ceftriaxone 1 g x 1, IV azithromycin 500 mg x 1, inhaled Levalbuterol 2.5 mg x 1, and inhaled sodium chloride 6 mL x 1. Patient was admitted for the work-up and management of acute hypercapnic respiratory failure. Review of Systems Review of Systems ROS Unobtainable: unobtainable due to mental status (Patient was somnolent and unable to respond adequately to questioning.) Past Medical History Past Medical History NEUROLOGIC: Negative Neurological Disorders or Seizures CARDIAC: Positive Hypercholesterolemia and Hypertension; Negative Cardiac Disorders or Congestive Heart Failure RESPIRATORY: Positive Chronic Obstructive Pulmonary Disease (COPD), Asthma (SLEEP APNEA) and Sleep Apnea GASTROINTESTINAL: Negative Gastrointestinal Disorders GENITOURINARY: Negative Genitourinary Disorders or Renal Disease MUSCULOSKELETAL: Negative Musculoskeletal Disorders ENDOCRINE: Positive Endocrine Disorders and Diabetes Mellitus Type 2; Negative Diabetes Mellitus Type 1 HEMATOLOGIC: Negative Blood Disorders or Sickle Cell Disease PSYCHO/SOCIAL: Positive Schizophrenia and Recreational Drug Use (meth) OTHER HISTORY: Positive Chicken Pox; Negative Blood Transfusions, Blood Transfusion Reaction, Anesthesia Reactions or Cancer Family History FAMILY HISTORY: Negative Family Cardiac Disorders Social History SMOKING STATUS: Never smoker SECOND HAND EXPOSURE: No Past Medical History Comments PMH COMMENT: Patient was somnolent and unable to respond adequately to questioning. Exam Vital Signs Temp Pulse Resp BP Pulse Ox O2 Del Method O2 Flow Rate 98.6 F 83 14 152/80 H 99 BiPAP 4 05/27/25 03:40 05/27/25 03:40 05/27/25 03:40 05/27/25 03:40 05/27/25 03:40 05/27/25 03:40 05/27/25 01:26 FiO2 40 05/27/25 03:03 Narrative Exam Physical Exam: General: Somnolent and lethargic. No acute distress. Skin: Warm, dry, intact, no obvious rash. Head: Normocephalic, atraumatic. Eye: Normal conjunctiva, PERRL. Throat: Unable to be assessed due to patient being on BiPAP. Cardiovascular: Regular rate and rhythm, no murmur, +S1/S2. Respiratory: On BiPAP. Labored respirations. Lungs are clear to auscultation, no crackles, no wheezing. Gastrointestinal: Soft, nontender, non-distended. No guarding or rebound tenderness. Extremities: No edema, no cyanosis, no clubbing. 2+ radial pulse bilaterally, 2+ posterior tibial pulse bilaterally. Neuro: Unable to be assessed due to somnolence. Psychiatric: Unable to be assessed due to somnolence. Results: Labs 05/27/25 16:50 05/27/25 16:24 Labs: Short CBC 05/27/25 Range/Units 01:56 WBC 10.9 H (3.8-10.6) Thou/mm3 Hgb 14.0 (13.5-16.0) g/dL Hct 42.7 (41.0-53.0) % Plt Count 211 (140-440) Thou/mm3 BMP 05/27/25 01:56 Sodium 141 Potassium 4.0 Chloride 103 Carbon Dioxide 30.5 BUN 13 Creatinine 1.0 Glucose 127 H Calcium 8.7 Cardiac Enzymes 05/27/25 Range/Units 01:56 Troponin I < 0.002 (0.0-0.045) ng/mL Liver Function 05/27/25 Range/Units 01:56 Total Bilirubin 0.4 (0.3-1.2) mg/dL Direct Bilirubin 0.1 (0.0-0.3) mg/dL AST 38 H (0-34) U/L ALT 76 H (10-49) U/L Alkaline Phosphatase 110 (46-116) U/L Albumin 4.1 (3.5-5.0) gm/dL ABG Interpretation ABG results: 05/27/25 02:45 ABG pH 7.31 L ABG pCO2 63 H ABG pO2 100 ABG HCO3 31 H ABG O2 Saturation 98 ABG Base Excess 3 Quality Measures Quality Measures none Medications Home Medications and Allergies Home Medications ?Medication ?Instructions ?Recorded ?Confirmed ?Type carvedilol 6.25 mg tablet 6.25 mg PO BID 02/15/2405/08 History gemfibrozil 600 mg tablet 600 mg PO BID 02/15/2405/27 History loratadine 10 mg tablet 10 mg PO QDAY 02/15/2405/27 History cholecalciferol (vitamin D3) 50 50 mcg PO DAILY 05/27/25 History mcg (2,000 unit) capsule fluticasone propionate 44 44 mcg inhalation PRN PRN so b 12/03/24 05/27/25 History mcg/actuation HFA aerosol inhaler metformin 500 mg tablet 500 mg PO BID 12/03/2405/27 History olanzapine 10 mg tablet 10 mg PO HS 12/04/24 5 History atorvastatin 20 mg tablet 20 mg PO BID 05/27/25 History Allergies Allergy/AdvReac Type Severity Reaction Status Date / Time No Known Allergies Allergy Unverified 02/16/24 08:13 Visit Medications Acetaminophen (Acetaminophen 325 Mg Tablet) 650 mg PO Q6H PRN PRN Reason: PAIN SCALE 1-3 (mild Stop: 06/26/25 03:55 Albuterol/Ipratropium (Albuterol/Ipratropium (Duoneb) Rt Katarina 3 Ml Nebu) 3 ml INH Q6HRRT [facility] Stop: 06/26/25 06:59 Aripiprazole (Aripiprazole 5 Mg Tablet) 2 mg PO BID JEANNE Stop: 06/26/25 08:59 Carvedilol (Carvedilol 3.125 Mg Tablet) 6.25 mg PO BID [facility] Stop: 06/26/25 08:59 Dextrose (Dextrose 50%-Water Inj 50 Ml Syringe) 25 ml IV Q15MIN PRN PRN Reason: BG 50-70 responsive npo pt Stop: 06/26/25 04:03 Dextrose (Dextrose 50%-Water Inj 50 Ml Syringe) 50 ml IV Q15MIN PRN PRN Reason: BG <50 OR BG <70 & pt unresponsive Stop: 06/26/25 04:03 Enoxaparin Sodium (Enoxaparin Sod Inj 40 Mg/0.4 Ml Syringe) 40 mg SC QDAY [facility] Stop: 06/10/25 08:59 Fluticasone Propionate (Fluticasone 44 Mcg 10.6 Gm Inh) 2 puff INH QDAY [facility] Stop: 06/26/25 08:59 Furosemide (Furosemide Inj 10 Mg/Ml Vial 2 Ml) 20 mg IVP QDAY [facility] Stop: 06/26/25 08:59 Glucagon (Glucagon Inj 1 Mg Vial) 1 mg IM Q15MIN PRN PRN Reason: BG <70, and no IV access Azithromycin 500 mg/ Sodium (Chloride) 250 mls @ 250 mls/hr IV QDAY [facility] Stop: 06/04/25 08:59 Ceftriaxone Sodium/Dextrose (Rocephin/D5w 1gm Iv Premix) 1 gm in 50 mls @ 100 mls/hr IV QDAY [facility] Stop: 06/03/25 04:02 Last Admin: 05/27/25 04:12 Dose: Not Given Insulin Human Lispro (Insulin Lispro (Admelog) 1 Unit/0.01 Ml Unit) 0 unit SC [facility]; Protocol Stop: 06/26/25 07:29 Methylprednisolone Sodium Succinate (Methylprednisolone Sod Succ 40 Mg Vial) 40 mg IVP BID [facility] Stop: 06/03/25 08:59 Ondansetron HCl (Ondansetron Inj 2 Mg/Ml Inj 2 Ml) 4 mg IVP Q6H PRN; Protocol PRN Reason: NAUSEA OR VOMITING Stop: 06/26/25 03:55 Sennosides (Senna Tablet) 1 tab PO QDAY PRN; Protocol PRN Reason: constipation Stop: 06/26/25 03:55 Sodium Chloride (Sodium Chloride Rt Katarina 0.9% 3 Ml Nebu) 6 ml INH PRN PRN PRN Reason: SOLN Stop: 06/26/25 01:45 Last Admin: 05/27/25 02:39 Dose: 6 ml Discontinued Medications Ceftriaxone Sodium/Dextrose (Rocephin/D5w 1gm Iv Premix) 1 gm in 50 mls @ 100 mls/hr IV X1 ONE Stop: 05/27/25 03:02 Last Infusion: 05/27/25 03:08 Dose: Infused Azithromycin 500 mg/ Sodium (Chloride) 250 mls @ 250 mls/hr IV X1 ONE Stop: 05/27/25 03:32 Last Infusion: 05/27/25 04:00 Dose: Infused Azithromycin 500 mg/ Sodium (Chloride) 250 mls @ 250 mls/hr IV X1 ONE Stop: 05/27/25 05:14 Last Admin: 05/27/25 04:12 Dose: Not Given Levalbuterol HCl (Levalbuterol Rt 1.25 Mg/0.5 Ml Nebu) 2.5 mg INH X1 ONE Stop: 05/27/25 01:47 Last Admin: 05/27/25 02:39 Dose: 2.5 mg Methylprednisolone Sodium Succinate (Methylprednisolone Sod Succ 62.5 Mg/Ml 2ml Vial) 125 mg IVP X1 ONE Stop: 05/27/25 01:47 Last Admin: 05/27/25 02:09 Dose: 125 mg Assessment & Plan Assessment Zay Reyes is a 44-year-old male with a PMH of morbid obesity, schizophrenia, hypertension, T2DM, BHAVESH on CPAP, and obesity hypoventilation syndrome on 2 L baseline of O2 who was BIBA for several days of worsening cough productive of purulent sputum and dyspnea. Patient was admitted for the work-up and management of acute hypercapnic respiratory failure. #Acute hypercapnic respiratory failure 2/ #COPD Exacerbation #BHAVESH/OHS Patient's symptoms align with acute COPD exacerbation defined as an acute worsening in one or more of the following over the last 14 days: cough, sputum production, and dyspnea Upon admission, patient's SpO2 was 94% on 4 L nasal cannula with 40% FiO2. Blood pH was slightly acidic at 7.31 and PaCO2 was elevated at 63. Differential or Related Dx: pneumonia (trigger for 70% of COPD exacerbations, especially viral), CHF, [place], pulmonary embolism Workup Progress: CXR showed possible bilateral pleural effusion. CMP was unremarkable. Echo from March 2025 showed normal EF and no heart failure. Based on above, current working diagnosis is that current presentation is 2/2 exacerbation of COPD and BHAVESH with CPAP noncompliance and OHS. Patient meets inpatient hospitalization criteria due to: SpO2<88%, use of accessory muscles of respiration, somnolence, history of hypercapnia, pH<7.35 or PaCO2>45, significant distress symptoms or comorbidities Plan: -Reverse airflow limitation 1. Started DuoNeb soft mist inhaler (NATALY-SHIKHA) Q6HR for symptomatic relief of SOB via bronchodilation 2. Started 5-day course of IV Solumedrol 40 mg BID to expedite recovery via reduction of airway inflammation (per GOLD guidelines) 3. Started inhaled fluticasone 44 mcg 2 puffs qD for same reason as above -Maintain SpO2 between 88-92% for adequate tissue oxygenation while minimizing risk of oxygen-induced hypercapnia (due to hypoventilation and Haldane effect) 1. Titrate supplemental oxygen as needed -Due to presence of 2 or more of the following: increased dyspnea, sputum volume/purulence, treat possible community-acquired pneumonia with antibiotics covering typical and atypical bacterial pathogens 1. Started 5-day course of IV ceftriaxone 1 gm qD for coverage of typical organisms including S. pneumoniae, H. influenzae, and M. catarrhalis 2. Started 5-day course of IV azithromycin 500 mg qD for coverage of atypical organisms including M. pneumoniae, C. pneumoniae, and L. pneumophila #Chronic medical problems #Schizophrenia #Hypertension #Obesity/BHAVESH/OHS Plan: -Restarted patient's home medications: PO Abilify 2 mg BID, PO Coreg 6.25 mg BID, and IV Lasix 20 mg qD -Consider switching Coreg for another anti-hypertensive medication as Coreg is not recommended as a first-line treatment for this purpose -Consider gastric bypass surgery and semaglutide for weight loss which may help with current episodes of acute hypercapnic respiratory failure Hospital Management: Disposition: receiving breathing treatments for COPD exacerbation Diet: carbohydrate consistent low GI Prophylaxis: none Bowel Prophylaxis: Senna DVT Prophylaxis: Lovenox CODE STATUS: Full Code I have examined the patient and conferred with my attending, Dr. Canas, and my senior resident, Dr. Espinosa, regarding them. Jorge Hernandez DO PGY-1 Internal Medicine Attending Provider Attestation/Addendum 44-year-old male patient with schizophrenia, sleep apnea is being admitted for COPD exacerbation. Reported to be very sleepy in the emergency room. I discussed with and supervised the resident physician who took care of this patient. I agree with the assessment and plan as above.
[2025-05-27 05:20] LABS: Base Excess 1 (-3-3); HCO3 29 mEq/L (20-26); PCO2 59 mmHg (32.0-48.0); PO2 118 mmHg (83-108); pH, Arterial 7.30 (7.35-7.45)
[2025-05-27 05:21] LABS: Inspired Oxygen, FIO2 40 %
[2025-05-27 05:34] LABS: Allen Test Not Performed; O2 Saturation 93 % (91-98); Puncture Site Right Radial
[2025-05-27 05:39] LABS: Basophils # (Auto) 0.1 Thou/mm3 (0.0-0.2); Basophils % (Auto) 1 % (0-2.5); Eosinophils # (Auto) 0.2 Thou/mm3 (0.0-0.5); Eosinophils % (Auto) 2 % (0-10); Hematocrit 48.2 % (41.0-53.0); Hemoglobin 15.1 g/dL (13.5-16.0); Immature Granulocytes Auto 0.24 Thou/mm3 (0.00-0.00); Lymphocytes # (Auto) 1.6 Thou/mm3 (1.0-4.8); Lymphocytes % (Auto) 14 % (10-50); Mean Corpuscular HGB Conc 31.3 g/dl (31.0-37.0); Mean Corpuscular Hemoglobin 28.0 pg (25.0-35.0); Mean Corpuscular Volume 89 fL (80-100); Monocytes # (Auto) 0.3 Thou/mm3 (0.0-0.8); Monocytes % (Auto) 2 % (0-12); Neutrophils # (Auto) 9.2 Thou/mm3 (1.8-7.7); Neutrophils % (Auto) 79 % (37-80); Nucleated Red Blood Cell # 0.00 Thou/mm3 (0.00-0.00); Nucleated Red Blood Cell % 0 /100 WBC (0); Platelet Count 200 Thou/mm3 (140-440); RDW Standard Deviation 53.0 fL (35.1-43.9); Red Blood Count 5.39 Miln/mm3 (4.50-5.90); White Blood Count 11.6 Thou/mm3 (3.8-10.6)
[2025-05-27 05:58] LABS: Alanine Aminotransferase 81 U/L (10-49); Albumin, Serum 4.4 gm/dL (3.5-5.0); Albumin/Globulin Ratio 1.4 (1.2-2.2); Alkaline Phosphatase 119 U/L (46-116); Anion Gap 7 (7-16); Aspartate Amino Transferase 39 U/L (0-34); BUN/Creatinine Ratio 13 Ratio (12-20); Bilirubin,Total 0.4 mg/dL (0.3-1.2); Blood Urea Nitrogen 13 mg/dL (9-23); Calcium 8.9 mg/dL (8.3-10.6); Calcium (Corrected) 8.9 mg/dL (8.5-10.1); Carbon Dioxide 30.2 mMol/L (20.0-31.0); Cardiac Risk Estimate 3.5 RATIO (4.0-6.7); Chloride 102 mMol/L (98-107); Cholesterol 131 mg/dL (132-200); Creatinine (Component) 1.0 mg/dL (0.6-1.3); Globulin 3.2 gm/dL (2.3-3.5); Glucose 170 mg/dL (74-106); HDL Cholesterol 37 mg/dL (40-60); LDL Cholesterol,Calculated 67 mg/dL (0-130); Osmolality,Calculated 281 (275-295); Potassium 4.3 mMol/L (3.4-5.1); Sodium 139 mMol/L (136-145); Total Protein 7.6 gm/dL (5.7-8.2); Triglycerides 135 mg/dL (30-150); eGFR > 60 See Note
[2025-05-27] MEDS: ALBUTEROL/IPRATROPIUM (Duoneb) RT SOL 3 ML NEBU INH ×5 (06:31→22:32)
--- NOTE | 2025-05-27 09:02 | ESPR_ITS ---
<Statement entered by Tania Welch MD - 06/04/25 08:01> I reviewed above note and agree with findings and plans. I have also personally examined the patient with medicine team and went over assessment and plan with medical team including internal combustion engine subassembler and resident physician. Documentation for date of: 05/27/25 Overnight admission, patient has a past medical history of OHS/BHAVESH who presented in acute hypercapnic respiratory failure and started on bipap. Continue bipap overnight. Follow up w/ ABG at 7 PM. Soft Collar in palce. May require ICU admsission if pCO2 worseing. Continue IV antibiotics for community acquired pneumonia. Follow up on pleural US for possible pleural effusion. Past medical history of perserved EF, continue diuretics which were increased. Losartan started. one time dose of Amlodipine given. Holding Carvediolol. Patient may benefit switching to ozemic despite starting rybelus in outpatient. Likely need cardiac cath to rule out PAH. Continue to monitor work of breathing. Ipap and Epap increased during rapid. Subjective Subjective Interval history: Patient was seen and evaluated at bedside today. Patient was on BiPAP early in the morning with a respiratory rate of 40 FiO2 40. Later in the morning patient was off BiPAP and 4L oxygen saturating 90%. Patient was somnolent early in the morning, but later in the morning patient was oriented to person, place, time, and location. Patient back on BiPAP in the afternoon. Patient complained of shortness of breath. Patient denied chest pain, cough, or sputum production. Patient acknowledged smoking marijuana and tobacco daily from the age of 8, but quit 1.5 years ago. In addition, patient acknowledged using inhalers, but could not state which ones they were and how often. Patient fell asleep a few minutes into the interview and needed to be woken up. Rapid response at approximately 1610 for tachypnea. See event note. Exam Vital Signs Temp Pulse Resp BP Pulse Ox O2 Del Method O2 Flow Rate 96.9 F 87 29 H 138/82 H 91 L BiPAP 4 05/27/25 08:00 05/27/25 08:00 05/27/25 08:00 05/27/25 08:00 05/27/25 08:00 05/27/25 08:00 05/27/25 08:00 FiO2 40 05/27/25 08:00 Narrative Exam General Appearance: Alert & Oriented to person, time, location, and condition; well-nourished male who is lying in bed in moderate respiratory distress. HEENT: Skull symmetrical and atraumatic. Conjunctivae pink and moist. Pupils equal, round, reactive to light and accommodation (PERRL). External ear without lesion or discharge. Straight, nares patient, mucosa pink, no discharge. No thyroid nodule appreciated. No cervical lymphadenopathy. Cardio: Normal Rate and Rhythm with S1 and S2 heart sounds. No murmurs or extra heart sounds auscultated. No bruits on carotid auscultation. No peripheral edema or cyanosis. Lungs: Symmetric with good expansion. Chest and back non-tender. Breath sounds vesicular with inspiratory stridor. Abdomen: Non-tender, Non-distended, Normal Reactive Bowel Sounds Neuro: Alert, cooperative, oriented to person, place, and time, and condition. Speech clear. CN grossly intact. Upper motor strength 5/5 and Lower motor strength 5/5. Sensation intact. Objective Labs 05/27/25 16:50 05/27/25 16:24 Labs: Laboratory Results - last 24 hr 05/27/25 05/27/25 05/27/25 01:56 02:45 05:08 WBC 10.9 H 11.6 H RBC 5.03 5.39 Hgb 14.0 15.1 Hct 42.7 48.2 MCV 85 89 MCH 27.8 28.0 MCHC 32.8 31.3 RDW Std Deviation 50.4 H 53.0 H Plt Count 211 200 Neut % (Auto) 72 79 Lymph % (Auto) 16 14 Callahan % (Auto) 6 2 Eos % (Auto) 4 2 Baso % (Auto) 0 1 Neut # (Auto) 7.9 H 9.2 H Lymph # (Auto) 1.8 1.6 Callahan # (Auto) 0.7 0.3 Eos # (Auto) 0.5 0.2 Baso # (Auto) 0.0 0.1 Immature Gran # (Auto) 0.05 H 0.24 H Absolute Nucleated RBC 0.00 0.00 Immature Gran % 1 H 2 H Nucleated RBC % 0 0 D-Dimer < 250 Puncture Site Right Radial ABG pH 7.31 L ABG pCO2 63 H ABG pO2 100 ABG HCO3 31 H ABG O2 Saturation 98 ABG Base Excess 3 FiO2 21 Sodium 141 139 Potassium 4.0 4.3 Chloride 103 102 Carbon Dioxide 30.5 30.2 Anion Gap 8 7 BUN 13 13 Creatinine 1.0 1.0 Estim Creat Clear Calc Not Performed. Not Performed. eGFR > 60 > 60 BUN/Creatinine Ratio 13 13 Glucose 127 H 170 H Calculated Osmolality 283 281 Calcium 8.7 8.9 Corrected Calcium 8.7 8.9 Magnesium 1.9 Total Bilirubin 0.4 0.4 Direct Bilirubin 0.1 AST 38 H 39 H ALT 76 H 81 H Alkaline Phosphatase 110 119 H Troponin I < 0.002 B-Natriuretic Peptide < 20 Total Protein 7.1 7.6 Albumin 4.1 4.4 Globulin 3.0 3.2 Albumin/Globulin Ratio 1.4 1.4 Triglycerides 135 Cholesterol 131 L LDL Cholesterol, Calc 67 HDL Cholesterol 37 L Cholesterol/HDL Ratio 3.5 L Ethyl Alcohol < 3.0 05/27/25 05:15 WBC RBC Hgb Hct MCV MCH MCHC RDW Std Deviation Plt Count Neut % (Auto) Lymph % (Auto) Callahan % (Auto) Eos % (Auto) Baso % (Auto) Neut # (Auto) Lymph # (Auto) Callahan # (Auto) Eos # (Auto) Baso # (Auto) Immature Gran # (Auto) Absolute Nucleated RBC Immature Gran % Nucleated RBC % D-Dimer Puncture Site Right Radial ABG pH 7.30 L ABG pCO2 59 H ABG pO2 118 H ABG HCO3 29 H ABG O2 Saturation 93 ABG Base Excess 1 FiO2 40 Sodium Potassium Chloride Carbon Dioxide Anion Gap BUN Creatinine Estim Creat Clear Calc eGFR BUN/Creatinine Ratio Glucose Calculated Osmolality Calcium Corrected Calcium Magnesium Total Bilirubin Direct Bilirubin AST ALT Alkaline Phosphatase Troponin I B-Natriuretic Peptide Total Protein Albumin Globulin Albumin/Globulin Ratio Triglycerides Cholesterol LDL Cholesterol, Calc HDL Cholesterol Cholesterol/HDL Ratio Ethyl Alcohol ABG Interpretation ABG results: 05/27/25 05/27/25 02:45 05:15 ABG pH 7.31 L 7.30 L ABG pCO2 63 H 59 H ABG pO2 100 118 H ABG HCO3 31 H 29 H ABG O2 Saturation 98 93 ABG Base Excess 3 1 Quality Measures Quality Measures VTE prophylaxis (Lovenox 40 mg SC QD) Assessment & Plan Assessment Current Active Medications: Generic Name Dose Route Start Last Admin Trade Name Freq PRN Reason Stop Dose Admin Acetaminophen 650 mg 05/27/25 03:56 Acetaminophen 325 Mg Tablet PO 06/26/25 03:55 Q6H PRN PAIN SCALE 1-3 (mild Albuterol/Ipratropium 3 ml 05/27/25 11:00 Albuterol/Ipratropium (Duoneb) Rt Katarina 3 Ml Nebu INH 06/26/25 10:59 [facility] Amlodipine Besylate 5 mg 05/27/25 09:00 Amlodipine Besylate 5 Mg Tablet PO 06/26/25 08:59 [facility]DAY [facility] Aripiprazole 2 mg 05/27/25 09:00 Aripiprazole 5 Mg Tablet PO 06/26/25 08:59 BID JEANNE Carvedilol 6.25 mg 05/27/25 09:00 Carvedilol 3.125 Mg Tablet PO 06/26/25 08:59 BID JEANNE Dextrose 25 ml 05/27/25 04:04 Dextrose 50%-Water Inj 50 Ml Syringe IV 06/26/25 04:03 Q15MIN PRN BG 50-70 responsive npo pt Dextrose 50 ml 05/27/25 04:04 Dextrose 50%-Water Inj 50 Ml Syringe IV 06/26/25 04:03 Q15MIN PRN BG <50 OR BG <70 & pt unresponsive Enoxaparin Sodium 40 mg 05/27/25 09:00 Enoxaparin Sod Inj 40 Mg/0.4 Ml Syringe SC 06/10/25 08:59 [facility] Fluticasone Propionate 2 puff 05/27/25 09:00 05/27/25 06:32 Fluticasone 44 Mcg 10.6 Gm Inh INH 06/26/25 08:59 Not Given [facility] Furosemide 20 mg 05/27/25 09:00 Furosemide Inj 10 Mg/Ml Vial 2 Ml IVP 06/26/25 08:59 [facility] Glucagon 1 mg 05/27/25 04:04 Glucagon Inj 1 Mg Vial IM Q15MIN PRN BG <70, and no IV access Azithromycin 500 mg/ Sodium 250 mls @ 250 mls/hr 05/28/25 09:00 Chloride IV 06/04/25 08:59 [facility] Ceftriaxone Sodium/Dextrose 1 gm in 50 mls @ 100 mls/hr 05/28/25 04:00 Rocephin/D5w 1gm Iv Premix IV 06/04/25 03:59 QDAY JEANNE Insulin Human Lispro 0 unit 05/27/25 07:30 Insulin Lispro (Admelog) 1 Unit/0.01 Ml Unit SC 06/26/25 07:29 ACHS JEANNE Protocol Methylprednisolone Sodium Succinate 40 mg 05/27/25 09:00 Methylprednisolone Sod Succ 40 Mg Vial IVP 06/03/25 08:59 BID JEANNE Ondansetron HCl 4 mg 05/27/25 03:56 Ondansetron Inj 2 Mg/Ml Inj 2 Ml IVP 06/26/25 03:55 Q6H PRN NAUSEA OR VOMITING Protocol Sennosides 1 tab 05/27/25 03:56 Senna Tablet PO 06/26/25 03:55 QDAY PRN constipation Protocol Sodium Chloride 6 ml 05/27/25 01:46 05/27/25 02:39 Sodium Chloride Rt Katarina 0.9% 3 Ml Nebu INH 06/26/25 01:45 6 ml PRN PRN Administration SOLN Plan Plan Zay Bautista is a 44-year-old male with a PMH of morbid obesity, schizophrenia, hypertension, T2DM, BHAVESH on CPAP, and obesity hypoventilation syndrome on 2 L baseline of O2 who was BIBA for several days of worsening cough productive of purulent sputum and dyspnea. Patient is admitted for acute hypercapnic respiratory failure likely secondary OHS and BHAVESH. #Acute hypercapnic respiratory failure likely secondary to #Obesity Hyperventilation Syndrome and #Obstructive Sleep Apnea on CPAP Patient is morbidly obese and requires CPAP for BHAVESH at home. Patient was admitted and put on BiPAP to improve respiratory status. The patient has a history of respiratory failure and was on Rybelsus as of 05/26/25. Patient's decline in respiratory status can be attributed to lack of diaphragmatic wall movement associated with increased adipose tissue and more work needed to supply adequate ventilation, leading for concern of obesity hypoventilation syndrome. This can be seen on interview with the patient falling asleep and needing to be woken up multiple times. Patient's symptoms align with OHS exacerbation, as patient has experienced dyspnea leading to a decline in respiratory function. Patient denied cough or sputum production. Upon admission 05/27 overnight: patient's SpO2 was 94% on 4 L nasal cannula with 40% FiO2. ABG pH 7.31 pCO2 63 pO2 100 HCO3 31 Differentials for Acute Hypercapnic Respiratory Failure: OHS exacerbation and BHAVESH is a possible diagnosis because the patient has increased work of breathing and lack of diaphragmatic excursion; PE is a possible diagnosis, but less likely given this patient is not tachycardic and not complaining of chest pain; CHF is a possibe diagnosis, but less likely given that the patient is not fluid overloaded; NM is another possible diagnosis, but less likely given that the patient is not complaining of any chest pain and trop is negative <0.02 05/27. CXR 05/27 overnight: showed possible bilateral pleural effusion. CMP was unremarkable. ABG 05/27 pH 7.30 pCO2 59 pO2 118 HCO3 29 Repeat pH 7.37 pCO2 57 pO2 62 HCO3 33 Patient had rapid response 05/27 at approximately 1610 for increased rate of breathing and tachypnea. Patient exhibited inspiratory stridor most likely due to obstruction of trachea in neck; ABG, BMP, CBC, Lactate ordered; ABG 7.29 pCO2 7.29 pCO2 66 pO2 84 HCO3 32. Glucose 181. Lactic Acid 1.9. CXR showed increased neck circumference consistent with airway obstruction; BiPAP respiratory rate set to 24 with FiO2 50. IPAP 22 EPAP 10. Plan: -Start DuoNeb Q4HRRT and Budesonide 0.5 mg BIDRT for symptomatic relief of SOB via bronchodilation -Continue IV methylprednisolone 40 mg BID to allievate inflammatory response in the airways (05/27-06/01) -Maintain SpO2 between 88-92% for adequate tissue oxygenation while minimizing risk of oxygen-induced hypercapnia (due to hypoventilation and Haldane effect) -Titrate supplemental oxygen as needed -Patient to remain on BiPAP overnight, per ICU recommendations during rapid response, appreciate recommendations #Community Acquired Pneumonia CXR 05/27 demonstrated right base pneumonia. Given the patient's respiratory status, rate of clearance of pathogens is most likely decreased. In addition, if patient is producing sputum, pathogens can harvest in the secretions, making pneumonia a likely occurrence. Plan: -Ceftriaxone 1 g IV QD (05/27-06/01) to cover the most common causes of pneumonia given the patient's age, such as Strep Pneumoniae and Haemophilus Influenza -Azithromycin 500 mg IV BID (05/27-06/01) to cover atypical organisms given this patient's potentially immunocompromised status -sputum ordered #Congestive Heart Failure #Heart Failure with Preserved Ejection Fraction (EF 55-60% 03/08/2025) #Pericardial Effusion #Pleural Effusion (?) Patient continues to demonstrate symptoms of heart failure with dyspnea, but signs, such as JVD, crackles, and edema are not present. BNP negative, less likely CHF exacerbation, none the less follow up with Pleural US given possible pleural effusion noted on Cxr. CXR 05/27 showed vascular congestion and possible pleural effusion Pleural US 05/27 showed possible fluid collection surrounding the lungs; possibly due to vascular fluid build up caused by heart failure or BHAVESH causing increased blood pressure and pulmonary vascular constriction or deconditioning due to increased metabolic stress Echocardiogram completed 03/08/25 Dr. Kerns demonstrated EF 55-60%, normal LV and RV size and function, RVSP 25mmHg, mild mitral regurgitation, mild tricuspid regurgitation, small pericardial effusion, AV peak velocity 150.5 cm/s AV PG 9.1 mmHg, AV area cont eq pki 1.5cm2 Plan: -Follow up with pleural US, for possible pleural effusion -Monitor for symptoms and signs of heart failure, including dyspnea, orthopnea, paroxysmal nocturnal dyspnea and signs such as JVD, crackles, and edema -Repeat CXR and echo as needed #Hypertension Patient has a history of hypertension Patient received amlodipine 5 mg PO this morning 05/27, subsequently discontinued Patient received Lasix 20 mg PO this morning 05/27 Plan: -Lasix 20 mg PO uptitrated to 40 mg IVP BID 05/27 1800 -Restart Losartan 25 mg PO QD tonight 05/27 1800 -Restart Carvedilol 6.25 mg PO BID tomorrow 05/28 #Hyperglycemia #Diabetes Mellitus Type 2, non insulin dependent Patient has a past medical history of diabetes mellitus type 2, previous a1c on 6.8 (03/2025) which likely may be worsen by current steriod use and metabolic dysregulation and Olazapine which is knonw to cause metabolic dysfuglation. Home medication of Metformin and Rybelusus. Pertinent labs: 05/27 glucose 181 FSBG 188 Most recent A1C's 03/08/25 6.8 12/04/24 7.5 09/17/24 6.1 Plan: -Insulin Sliding Scale -Monitor glucose levels and possible repeat A1C #Hyperlipidemia Patient has a history of increased lipids. Possible reasons: morbid obesity leading to increased fat accumulation, atypical anti-psychotic usage leading to metabolic dysregulation, stress response from inflammation Pertinent labs- 12/05/24 TG 353 TC 204 LDL 93 HDL 40 05/27/25 TG 135 TC 131 LDL 67 HDL 37 Plan: -Restart Atorvastatin 20 mg PO QHS and Gemfibrozil 600 mg BID tonight 05/27 2100 #Mild Transmaminitis Patient has a history of consistently elevated liver enzymes over the past couple of months Pertinent labs: 05/27 AST 39 ALT 81 Possible differentials: steatohepatitis given the 19.1 cm fatty infiltration found on liver US 12/04/24, metabolic stress due to obesity, alcohol use in the past? Previous Hepatitis panel negative (2019) Plan -Continue to monitor, consider repeat hepatitis panel. #Schizophrenia Patient has a history of schizophrenia, previously patient on Abilify, but after medication reconciliation, patient denied taking abilify and now on Olazapine. Disconitnue Abilify and continue Olanzapine. Plan: -Discontinue Abilify 2 mg PO BID -Start Olanzapine 10 mg PO QD 05/28 0900 Hospital Management: Disposition: Breathing treatments for Acute Hypercapnic Respiratory Failure secondary to OHS and BHAVESH Diet: carbohydrate consistent low GI Prophylaxis: none Bowel Prophylaxis: Senna DVT Prophylaxis: Lovenox 40 mg SC QD CODE STATUS: Full Code Case reviewed with attending Dr. Welch and senior resident Dr. Campbell. Mitzi Ponce MS-4 - The patient's plan was discussed with attending Dr. Rebekah Campbell MD PGY2 Internal Medicine Attending Provider Attestation/Addendum I have discussed and was present for the essential components of the history, physical examination, diagnosis, and treatment plan with the resident. I agree with the patient's care as documented by the resident and amended herein by me. Tania Welch MD. Although this document has been carefully reviewed, there may still be some phonetic and other typographical errors. These errors are purely grammatical due to imperfections in the software program and should not be construed in any way to compromise the substance of the patient's medical care during this visit.
[2025-05-27] MEDS: ENOXAPARIN SOD INJ 40 MG/0.4 ML SYRINGE SC (09:33)
[2025-05-27] MEDS: INSULIN LISPRO (AdmeLOG) 1 UNIT/0.01 ML UNIT SC ×3 (09:34→18:31)
[2025-05-27] MEDS: FUROSEMIDE INJ 10 MG/ML VIAL 2 ML 20 MG IVP (09:39)
--- NOTE | 2025-05-27 09:56 | PC.SS ---
Patient Zay Reyes is a 44 Year old male admitted for COPD Exacerbation. SS contacted patient's mother, Lakisha, who confirmed she is the alt medical decision maker. Lakisha states patient resides at home with her. . Prior to hospitalization patient was independent with ADL's. He was using a CPaP machine ([employer]) and 02 ([employer] on 4L Patient was being seen in the past by Dr. Ford in [place] who is a [employer]ty And [employer] Worker but now has an upcoming appt scheduled. PCP: @ [facility] Next of Kin: Lakisha Kirby, mother, . Discharge plan: Home
--- NOTE | 2025-05-27 10:10 | PC.SS ---
SS contacted patient's mother, Lakisha to clarify who the decision maker was, due to her daughter Jany Santa calling for updates on patients care. Patient's mother informed SS that patient's sister, Jany Santa is the decision maker and main point of contact for patient since she knows more about patient's medical condition [phone]. SS informed patient's mother that patient's sister is the only point of contact for questions on patient's medical care, patient's mother verbalized understanding. SS will stand by for further needs.
--- NOTE | 2025-05-27 14:27 | PC.SS ---
SS follow up note; Patient is receiving IV ABX for a duration of five days. Patient will discharge home when medically cleared.
[2025-05-27 14:34] LABS: Base Excess 5 (-3-3); HCO3 33 mEq/L (20-26); Inspired O2, VO2 Liters 7 L/min; Inspired Oxygen, FIO2 21 %; O2 Saturation 93 % (91-98); PCO2 57 mmHg (32.0-48.0); PO2 62 mmHg (83-108); pH, Arterial 7.37 (7.35-7.45)
[2025-05-27 14:39] LABS: Allen Test Performed/OK; Puncture Site Right Radial
--- NOTE | 2025-05-27 16:12 | XR_ITS ---
Examination: AP chest single view TECHNIQUE: AP semiupright portable chest single view Date and time: May 27, 2025 1623 hours Comparison May 27, 2025 1352 hours INDICATIONS: Difficulty breathing today. FINDINGS: Enlarged cardiac contour with prominent vascular congestion. Right base pneumonia with possible right pleural disease. The osseous structures are intact IMPRESSION: Suspicious for mild heart failure. Right base pneumonia
[2025-05-27] MEDS: BUDESONIDE RT 0.5 MG/2 ML NEBU INH ×2 (16:14→19:08)
[2025-05-27 16:42] LABS: Base Excess 3 (-3-3); HCO3 32 mEq/L (20-26); Inspired Oxygen, FIO2 50 %; O2 Saturation 96 % (91-98); PCO2 66 mmHg (32.0-48.0); PO2 84 mmHg (83-108); pH, Arterial 7.29 (7.35-7.45)
[2025-05-27 16:43] LABS: Allen Test Not Performed; Puncture Site Right Radial
--- NOTE | 2025-05-27 16:46 | PD.RESEVENT ---
Documentation for date of: 05/27/25 Event Note Event Note: Rapid response called 05/27 at approximately 1610 for increased work of breathing and tachypnea. Vitals: BP 146/76 HR 114 RR 36 SpO2 95% BiPAP respiratory rate set to 24 with FiO2 50 IPAP 22 EPAP 10. Patient was diaphoretic and experiencing increased work of breathing. Respiratory rate did increase into the 40s and SpO2 did drop to the low 90s. On physical examination, inspiratory stridor was present. ABG, BMP, CBC, Lactate, CXR ordered. Results: ABG pH 7.29 pCO2 66 pO2 84 HCO3 32. BMP remarkable for glucose 181. Lactic Acid 1.9. CXR demonstrated increased neck circumference obstructing the airway. Ipap increased to 22 and Epap now 10 based on ICU recommendations. Based on ICU recommendations, patient to remain on BiPAP throughout the night. Case reviewed with attending Dr. Welch and senior resident Dr. Campbell. Mitzi Ponce MS-4 - The patient's plan was discussed with attending Dr. Rebekah Campbell MD PGY2 Internal Medicine
--- NOTE | 2025-05-27 16:47 | PC.RT ---
SPUTUM NOT OBTAINED DUE TO PT ON BIPAP
[2025-05-27 16:48] LABS: Lactate (Lactic Acid) 1.9 mMol/L (0.4-2.0)
--- NOTE | 2025-05-27 16:57 | XR_ITS ---
Examination: Ultrasound hemithoraces Date and time: May 27, 2025 1711 hours INDICATIONS: Difficulty breathing today TECHNIQUE AND FINDINGS: Grayscale sonographic images right and left hemithoraces No pleural fluid IMPRESSION: No pleural fluid
[2025-05-27 17:09] LABS: Anion Gap 11 (7-16); BUN/Creatinine Ratio 14 Ratio (12-20); Blood Urea Nitrogen 11 mg/dL (9-23); Calcium 9.2 mg/dL (8.3-10.6); Carbon Dioxide 28.3 mMol/L (20.0-31.0); Chloride 101 mMol/L (98-107); Creatinine (Component) 0.8 mg/dL (0.6-1.3); Glucose 181 mg/dL (74-106); Osmolality,Calculated 283 (275-295); Potassium 4.4 mMol/L (3.4-5.1); Sodium 140 mMol/L (136-145); Troponin I < 0.020 ng/mL (0.0-0.045); eGFR > 60 See Note
[2025-05-27 17:17] LABS: Basophils # (Auto) 0.0 Thou/mm3 (0.0-0.2); Basophils % (Auto) 0 % (0-2.5); Eosinophils # (Auto) 0.0 Thou/mm3 (0.0-0.5); Eosinophils % (Auto) 0 % (0-10); Hematocrit 47.8 % (41.0-53.0); Hemoglobin 15.2 g/dL (13.5-16.0); Immature Granulocytes Auto 0.20 Thou/mm3 (0.00-0.00); Lymphocytes # (Auto) 0.9 Thou/mm3 (1.0-4.8); Lymphocytes % (Auto) 6 % (10-50); Mean Corpuscular HGB Conc 31.8 g/dl (31.0-37.0); Mean Corpuscular Hemoglobin 27.7 pg (25.0-35.0); Mean Corpuscular Volume 87 fL (80-100); Monocytes # (Auto) 0.2 Thou/mm3 (0.0-0.8); Monocytes % (Auto) 1 % (0-12); Neutrophils # (Auto) 14.1 Thou/mm3 (1.8-7.7); Neutrophils % (Auto) 92 % (37-80); Nucleated Red Blood Cell # 0.00 Thou/mm3 (0.00-0.00); Nucleated Red Blood Cell % 0 /100 WBC (0); Platelet Count 237 Thou/mm3 (140-440); RDW Standard Deviation 49.7 fL (35.1-43.9); Red Blood Count 5.48 Miln/mm3 (4.50-5.90); White Blood Count 15.4 Thou/mm3 (3.8-10.6)
[2025-05-27] MEDS: FUROSEMIDE INJ 10 MG/ML VIAL 2 ML 40 MG IVP (18:32)
[2025-05-27] MEDS: LOSARTAN POTASSIUM 25 MG TABLET PO (18:39)
[2025-05-27 19:32] LABS: Allen Test Performed/OK; Base Excess 4 (-3-3); HCO3 33 mEq/L (20-26); Inspired Oxygen, FIO2 50 %; O2 Saturation 92 % (91-98); PCO2 70 mmHg (32.0-48.0); PO2 66 mmHg (83-108); Puncture Site Left Radial; pH, Arterial 7.29 (7.35-7.45)
--- NOTE | 2025-05-27 19:46 | PD.RESCONSUL ---
HPI Data of Consult Requesting Physician: Tania Welch MD Admitting Provider: Kt Canas MD Attending Provider: Tania Welch MD Primary Care Provider: Physician No Primary/Family Consult Narrative Reason for consult: respiratory distress History of present illness: Patient is a 44 years old male with PMH of morbid obesity, schizophrenia, hypertension, T2DM, BHAVESH on CPAP, and obesity hypoventilation syndrome on 2 L baseline O2 who was BIBA for several days of worsening cough productive of purulent sputum and dyspnea. Labs showed mild leukocytosis. ABG showed low blood pH 7.31, high pCO2 63, normal pO2 100, and high HCO3 31. He was started on BiPAP and was admitted to telemetry due to acute respiratory failure, started on IV antibiotics. During the day SPECIAL EFFECTS PERSON was called due to worsening respiratory distress, ABG showed pH 7.29 pCO2 66 pO2 84 HCO3 32, worse since admission, ICU team was consulted recommended to increase IPAP to 22 and EPAP to 10. Another [employer] E[employer]ECT[employer] PERSON called later today after breathing treatment when patient was complaining of SOB, follow up ABG from prior [employer] EFFECT[employer] PERSON showed similar ABG results with pH of 7.29, PCO2 of 70, PO2 of 66 and bicarb of 33. Patient was noticed to have a high BIPAP leak, likely due to constant movement and posturing. Decision was made to upgrade patient to ICU for closer observation and possible intubation if condition continues to detoriate. cc:: cc: Tania Welch MD Review of Systems Review of Systems Systems Reviewed: All systems reviewed, normal except as documented Exam Vital Signs Temp Pulse Resp BP Pulse Ox O2 Del Method O2 Flow Rate 97.3 F 108 H 26 H 158/87 H 95 BiPAP 7 05/27/25 16:00 05/27/25 19:09 05/27/25 19:09 05/27/25 18:39 05/27/25 19:09 05/27/25 16:00 05/27/25 16:00 FiO2 50 05/27/25 19:09 Narrative Exam Gen: Well-developed somnolent male on BiPAP, in moderate distress. HEENT: NCAT, PERRLA, EOMI, MMM, anicteric conjunctivae. CVS: normal S1 and S2. Regular tachycardia. No M/R/G. Resp: coarse breath B/L. No rhonchi, rales, crackles or wheezing. Abd: soft, obese, non-tender, non-distended. BS+ in all 4 quadrants. MSK: Good ROM in BUE & BLE. No edema or rash. Neuro: CN II-XII grossly intact. Strength 5/5 in BUE & BLE. Limited exam due to mental status. Results Labs 05/27/25 16:50 05/27/25 16:24 Labs: Short CBC 05/27/25 05/27/25 05/27/25 Range/Units 01:56 05:08 16:50 WBC 10.9 H 11.6 H 15.4 H (3.8-10.6) Thou/mm3 Hgb 14.0 15.1 15.2 (13.5-16.0) g/dL Hct 42.7 48.2 47.8 (41.0-53.0) % Plt Count 211 200 237 D (140-440) Thou/mm3 BMP 05/27/25 05/27/25 05/27/25 01:56 05:08 16:24 Sodium 141 139 140 Potassium 4.0 4.3 4.4 Chloride 103 102 101 Carbon Dioxide 30.5 30.2 28.3 BUN 13 13 11 Creatinine 1.0 1.0 0.8 Glucose 127 H 170 H 181 H Calcium 8.7 8.9 9.2 Cardiac Enzymes 05/27/25 05/27/25 Range/Units 01:56 16:24 Troponin I < 0.002 < 0.020 (0.0-0.045) ng/mL Liver Function 05/27/25 05/27/25 Range/Units 01:56 05:08 Total Bilirubin 0.4 0.4 (0.3-1.2) mg/dL Direct Bilirubin 0.1 (0.0-0.3) mg/dL AST 38 H 39 H (0-34) U/L ALT 76 H 81 H (10-49) U/L Alkaline Phosphatase 110 119 H (46-116) U/L Albumin 4.1 4.4 (3.5-5.0) gm/dL ABG Interpretation ABG results: 05/27/25 05/27/25 05/27/25 02:45 05:15 14:26 ABG pH 7.31 L 7.30 L 7.37 ABG pCO2 63 H 59 H 57 H ABG pO2 100 118 H 62 L D ABG HCO3 31 H 29 H 33 H ABG O2 Saturation 98 93 93 ABG Base Excess 3 1 5 H 05/27/25 05/27/25 16:25 19:20 ABG pH 7.29 L 7.29 L ABG pCO2 66 H 70 H ABG pO2 84 D 66 L ABG HCO3 32 H 33 H ABG O2 Saturation 96 92 ABG Base Excess 3 4 H Quality Measures Quality Measures VTE prophylaxis (Lovenox 40 mg SC QD) Medications Home Medications and Allergies Home Medications ?Medication ?Instructions ?Recorded ?Confirmed ?Type carvedilol 6.25 mg tablet 6.25 mg PO BID 02/15/24 05/27/25 History gemfibrozil 600 mg tablet 600 mg PO BID 02/15/24 05/27/25 History loratadine 10 mg tablet 10 mg PO QDAY 02/15/24 05/27/25 History cholecalciferol (vitamin D3) 50 50 mcg PO DAILY 12/03/24 05/27/25 History mcg (2,000 unit) capsule fluticasone propionate 44 44 mcg inhalation PRN PRN sob 12/03/24 05/27/25 History mcg/actuation HFA aerosol inhaler metformin 500 mg tablet 500 mg PO BID 12/03/24 05/27/25 History olanzapine 10 mg tablet 10 mg PO HS 12/04/24 05/27/25 History atorvastatin 20 mg tablet 20 mg PO BID 05/27/25 05/27/25 History Allergies Allergy/AdvReac Type Severity Reaction Status Date / Time No Known Allergies Allergy Unverified 02/16/24 08:13 Visit Medications Acetaminophen (Acetaminophen 325 Mg Tablet) 650 mg PO Q6H PRN PRN Reason: PAIN SCALE 1-3 (mild Stop: 06/26/25 03:55 Albuterol/Ipratropium (Albuterol/Ipratropium (Duoneb) Rt Katarina 3 Ml Nebu) 3 ml INH Q4HRRT JEANNE Stop: 06/26/25 10:59 Last Admin: 05/27/25 19:08 Dose: 3 ml Atorvastatin Calcium (Atorvastatin Calcium 20 Mg Tablet) 20 mg PO HS JEANNE Stop: 06/26/25 20:59 Budesonide (Budesonide Rt 0.5 Mg/2 Ml Nebu) 0.5 mg INH BIDRT JEANNE Stop: 06/26/25 18:59 Last Admin: 05/27/25 19:08 Dose: 0.5 mg Carvedilol (Carvedilol 3.125 Mg Tablet) 6.25 mg PO BID [facility] Stop: 06/26/25 08:59 Dextrose (Dextrose 50%-Water Inj 50 Ml Syringe) 25 ml IV Q15MIN PRN PRN Reason: BG 50-70 responsive npo pt Stop: 06/26/25 16:51 Dextrose (Dextrose 50%-Water Inj 50 Ml Syringe) 50 ml IV Q15MIN PRN PRN Reason: BG <50 OR BG <70 & pt unresponsive Stop: 06/26/25 16:51 Enoxaparin Sodium (Enoxaparin Sod Inj 40 Mg/0.4 Ml Syringe) 40 mg SC QDAY [facility] Stop: 06/10/25 08:59 Last Admin: 05/27/25 09:33 Dose: 40 mg Furosemide (Furosemide Inj 10 Mg/Ml Vial 2 Ml) 40 mg IVP BIDD [facility] Stop: 06/26/25 17:59 Last Admin: 05/27/25 18:32 Dose: 40 mg Gemfibrozil (Gemfibrozil 600 Mg Tablet) 600 mg PO BID [facility] Stop: 06/26/25 20:59 Glucagon (Glucagon Inj 1 Mg Vial) 1 mg IM Q15MIN PRN PRN Reason: BG <70, and no IV access Azithromycin 500 mg/ Sodium (Chloride) 250 mls @ 250 mls/hr IV QDAY [facility] Stop: 06/04/25 08:59 Ceftriaxone Sodium/Dextrose (Rocephin/D5w 1gm Iv Premix) 1 gm in 50 mls @ 100 mls/hr IV QDAY [facility] Stop: 06/04/25 03:59 Insulin Human Lispro (Insulin Lispro (Admelog) 1 Unit/0.01 Ml Unit) 0 unit SC [facility]; Protocol Stop: 06/26/25 16:59 Last Admin: 05/27/25 18:31 Dose: 2 unit Losartan Potassium (Losartan Potassium 25 Mg Tablet) 25 mg PO QDAY [facility] Stop: 06/26/25 17:59 Last Admin: 05/27/25 18:39 Dose: 25 mg Methylprednisolone Sodium Succinate (Methylprednisolone Sod Succ 40 Mg Vial) 40 mg IVP BID [facility] Stop: 06/03/25 08:59 Last Admin: 05/27/25 09:33 Dose: 40 mg Olanzapine (Olanzapine 5 Mg Tablet) 10 mg PO QDAY JEANNE Stop: 06/27/25 08:59 Ondansetron HCl (Ondansetron Inj 2 Mg/Ml Inj 2 Ml) 4 mg IVP Q6H PRN; Protocol PRN Reason: NAUSEA OR VOMITING Stop: 06/26/25 03:55 Sennosides (Senna Tablet) 1 tab PO QDAY PRN; Protocol PRN Reason: constipation Stop: 06/26/25 03:55 Sodium Chloride (Sodium Chloride Rt Katarina 0.9% 3 Ml Nebu) 6 ml INH PRN PRN PRN Reason: SOLN Stop: 06/26/25 01:45 Last Admin: 05/27/25 02:39 Dose: 6 ml Discontinued Medications Albuterol/Ipratropium (Albuterol/Ipratropium (Duoneb) Rt Katarina 3 Ml Nebu) 3 ml INH Q6HRRT JEANNE Stop: 06/26/25 06:59 Last Admin: 05/27/25 06:31 Dose: 3 ml Albuterol/Ipratropium (Albuterol/Ipratropium (Duoneb) Rt Katarina 3 Ml Nebu) 3 ml INH X1 ONE Stop: 05/27/25 16:07 Last Admin: 05/27/25 16:15 Dose: 3 ml Amlodipine Besylate (Amlodipine Besylate 5 Mg Tablet) 5 mg PO QDAY JEANNE Stop: 06/26/25 08:59 Last Admin: 05/27/25 09:33 Dose: 5 mg Aripiprazole (Aripiprazole 5 Mg Tablet) 2 mg PO BID JEANNE Stop: 06/26/25 08:59 Last Admin: 05/27/25 09:33 Dose: 2 mg Budesonide (Budesonide Rt 0.5 Mg/2 Ml Nebu) 0.5 mg INH X1 ONE Stop: 05/27/25 16:07 Last Admin: 05/27/25 16:14 Dose: 0.5 mg Dextrose (Dextrose 50%-Water Inj 50 Ml Syringe) 25 ml IV Q15MIN PRN PRN Reason: BG 50-70 responsive npo pt Stop: 06/26/25 04:03 Dextrose (Dextrose 50%-Water Inj 50 Ml Syringe) 50 ml IV Q15MIN PRN PRN Reason: BG <50 OR BG <70 & pt unresponsive Stop: 06/26/25 04:03 Fluticasone Propionate (Fluticasone 44 Mcg 10.6 Gm Inh) 2 puff INH QDAY [facility] Stop: 06/26/25 08:59 Last Admin: 05/27/25 06:32 Dose: Not Given Furosemide (Furosemide Inj 10 Mg/Ml Vial 2 Ml) 20 mg IVP QDAY [facility] Stop: 06/26/25 08:59 Last Admin: 05/27/25 09:39 Dose: 20 mg Glucagon (Glucagon Inj 1 Mg Vial) 1 mg IM Q15MIN PRN PRN Reason: BG <70, and no IV access Ceftriaxone Sodium/Dextrose (Rocephin/D5w 1gm Iv Premix) 1 gm in 50 mls @ 100 mls/hr IV X1 ONE Stop: 05/27/25 03:02 Last Infusion: 05/27/25 03:08 Dose: Infused Azithromycin 500 mg/ Sodium (Chloride) 250 mls @ 250 mls/hr IV X1 ONE Stop: 05/27/25 03:32 Last Infusion: 05/27/25 04:00 Dose: Infused Ceftriaxone Sodium/Dextrose (Rocephin/D5w 1gm Iv Premix) 1 gm in 50 mls @ 100 mls/hr IV QDAY [facility] Stop: 06/03/25 04:02 Last Admin: 05/27/25 04:12 Dose: Not Given Azithromycin 500 mg/ Sodium (Chloride) 250 mls @ 250 mls/hr IV X1 ONE Stop: 05/27/25 05:14 Last Admin: 05/27/25 04:12 Dose: Not Given Insulin Human Lispro (Insulin Lispro (Admelog) 1 Unit/0.01 Ml Unit) 0 unit SC [facility]; Protocol Stop: 06/26/25 07:29 Last Admin: 05/27/25 11:46 Dose: 1 unit Levalbuterol HCl (Levalbuterol Rt 1.25 Mg/0.5 Ml Nebu) 2.5 mg INH X1 ONE Stop: 05/27/25 01:47 Last Admin: 05/27/25 02:39 Dose: 2.5 mg Methylprednisolone Sodium Succinate (Methylprednisolone Sod Succ 62.5 Mg/Ml 2ml Vial) 125 mg IVP X1 ONE Stop: 05/27/25 01:47 Last Admin: 07/21/25 02:09 Dose: 125 mg Sodium Chloride (Sodium Chloride Rt 10% 15 Ml Nebu) 5 ml INH X1 ONE Stop: 05/27/25 07:41 Last Admin: 05/27/25 18:39 Dose: Not Given Assessment & Plan Plan Patient is a 44 years old male with PMH of morbid obesity, schizophrenia, hypertension, T2DM, BHAVESH on CPAP, and obesity hypoventilation syndrome on 2 L baseline O2 who was initially was admitted to telemetry for acute respiratory failure, was upgraded to ICU due to worsening hypoxia and hypercapnia. Neuro: #Schizophrenia. At home on Abilify. Currently very somnolent, denies hallucinations. Plan: - Continue on olanzapine 10 mg QD. Cardiovascular: #Hypertension. Normotensive in ICU on upgrade. At home on Coreg and Lasix (unclear reason). Lasix was increased to 40 BID by day team. Plan: - Continue PO Coreg 6.25 mg BID and IV Lasix 40 mg BID. Respiratory: #Acute hypoxic hypercapnic respiratory failure 12/09: #COPD Exacerbation. #BHAVESH/OHS. #CAP. Patient is on home CPAP but compliance is unknown. Patient had multiple admissions due to AHRF, was intubated during last admission. Patient presented with SOB, productive cough and mild leukocytosis, CXR showed right base pneumonia. Failed BiPAP, follow up ABG showed worsening of hypercapnia and hypoxia, setting were adjusted to IPAP 22 and EPAP 10. Upon upgrade he was found to have large air leak 80-100 on BiPAP, likely due to his posturing and constant movement. BiPAP mask was changed to smaller mask, improvised C-collar was applied (no right size available) to keep his head straight and restrict excessive movement. Will continue current BiPAP settings and f/u ABG. Will consider intubation if condition progressively worsen. Plan: - continue on BiPAP with IPAP 22 and EPAP 10, strict monitoring for air leak no more then 50. - Maintain SpO2 between 88-92%. - continue scheduled DuoNeb Q4H. - continue inhaled fluticasone 44 mcg QD. - continue IV ceftriaxone and azithromycin. - continue methylprednisolone 40 mg IV BID. - continue improvised C-collar. - follow up ABG. Gastrointestinal: #Elevated LFTs. Mildly elevated AST/ALT and alk phos, consistent with prior readings. No abdominal pain reported. Plan: - monitor with daily labs. Renal: No active problem. Endocrine: #Metabolic syndrome. #Type 2 diabetes mellitus. Patient has metabolic syndrome, likely due to poor diet and antipsychotics. BMI 54. History of diabetes, hyperlipidemia (controlled with meds), morbid obesity. Plan: - continue on SSI. - glucose checks Q6H. - consider gastric bypass surgery and semaglutide for weight loss which may help with current episodes of acute hypercapnic respiratory failure. - continue home atorvastatin and gemfibrozil. Infectious Disease: #CAP. Patient presented with SOB, productive cough and mild leukocytosis, CXR showed right base pneumonia. Was started on IV antibiotics. Plan: - continue IV ceftriaxone 1 gm QD and azithromycin 500 mg QD. Hematology/Oncology: #Leukocytosis. Likely due to CAP/COPD exacerbation, on admission WBC 11.6, today WBC 15.4. Plan: - continue current antibiotic regiment. - monitor with daily labs. Diet: NPO. DVT prophylaxis: Lovenox. GI prophylaxis: Protonix. Code status: FULL CODE. Disposition: ICU. Plan of care discussed with attending Dr. Canas. Ced Liu MD, PGY 3. Disclaimer: This note was dictated by speech recognition. Minor errors in city routeman may be present due to voice recognition software. Attending Provider Attestation/Addendum Patient was admitted this morning to the floor with respiratory failure. The patient developed further worsening of hypercapnia and hypoxia. He is tachypneic. Patient will stay on BiPAP. Continue current antibiotic treatment may need to broaden if indicated. Repeat chest x-ray. Discussed with housestaff.
[2025-05-27] MEDS: LEVALBUTEROL RT 1.25 MG/0.5 ML NEBU INH (19:59)
--- NOTE | 2025-05-27 20:01 | PD.RESEVENT ---
Documentation for date of: 05/27/25 Event Note Event Note: 05/27/2025: Rapid response called sometime around 8 PM for patient in room 256 exhibiting hypoxia with a SPO2 of 90% on BiPAP with tachypnea and respiratory rate in high 30s?40s. Patient seen and assessed in hospital bed in acute respiratory distress breathing using accessory muscles with tachycardia and heart rate in the low 100s; moreover, on auscultation patient has signs of stridor and bilateral wheezing. Latest ABG shows pH of 7.29, PCO2 of 70, PO2 of 66 and bicarb of 33 and patient recently received a breathing treatment with RT. Decision was made to upgrade the patient to ICU for closer monitoring with an order of lactic acid and additional breathing treatment. ICU attending made aware and will continue to monitor the patient as well. Gurpreet Espinosa, DO PGY-2 Internal Medicine - [facility]
--- NOTE | 2025-05-27 20:07 | PC.NURSE ---
[employer] called patient RR 40's complains of shortness of breath states hes not getting in air. currently on Bipap fio2 50%. MD at bedside placed transfer orders for ICU patient and belongings transferred to ICU room 256 at 1954
[2025-05-27 20:23] LABS: Lactate (Lactic Acid) 1.7 mMol/L (0.4-2.0)
[2025-05-27 22:47] LABS: Base Excess 6 (-3-3); HCO3 34 mEq/L (20-26); Inspired Oxygen, FIO2 50 %; O2 Saturation 98 % (91-98); PCO2 60 mmHg (32.0-48.0); PO2 96 mmHg (83-108); pH, Arterial 7.36 (7.35-7.45)
[2025-05-27 22:48] LABS: Allen Test Performed/OK; Puncture Site Left Radial
[2025-05-28] VITALS (59 sets, daily range): BP systolic 95–155; BP diastolic 39–84; PULSE 74–100; RESP 18–35; TEMP 36.4–37.1; O2SAT 89–99; BMI 53.6
[2025-05-28] MEDS: ALBUTEROL/IPRATROPIUM (Duoneb) RT SOL 3 ML NEBU INH ×6 (02:26→22:22)
[2025-05-28 04:39] LABS: Base Excess 7 (-3-3); HCO3 33 mEq/L (20-26); Inspired Oxygen, FIO2 50 %; PCO2 53 mmHg (32.0-48.0); PO2 83 mmHg (83-108); pH, Arterial 7.41 (7.35-7.45)
[2025-05-28 04:45] LABS: O2 Saturation 95 % (91-98)
[2025-05-28 04:47] LABS: Allen Test Performed/OK; Puncture Site Left Radial
[2025-05-28] MEDS: cefTRIAXone/D5w 1gm IV premix 1 GM/50 ML BAG IV (04:55)
--- NOTE | 2025-05-28 05:31 | EKG_ITS ---
[facility] Test Date: 2025-05-28 Pat Name: CIERRA ROBERTS [facility] Gender[facility] Male Dispute Resolution Specialist: JESSA : 1980 Requested By: Ced Liu Order Number: [id number] Reading MD: Ced Liu Measurements Intervals [place] Rate: 83 P: 5 [place]: 171 QRS: 44 QRSD: 77 T: 63 QT: 357 QTc: 420 Interpretive Statements SINUS RHYTHM LOW QRS VOLTAGE IN PRECORDIAL LEADS Compared to ECG 05/27/2025 15:43:15 Sinus tachycardia no longer present Myocardial infarct finding no longer present /store/S0/[id number]
[2025-05-28 05:54] LABS: Basophils # (Auto) 0.0 Thou/mm3 (0.0-0.2); Basophils % (Auto) 0 % (0-2.5); Eosinophils # (Auto) 0.0 Thou/mm3 (0.0-0.5); Eosinophils % (Auto) 0 % (0-10); Hematocrit 45.4 % (41.0-53.0); Hemoglobin 14.7 g/dL (13.5-16.0); Immature Granulocytes Auto 0.13 Thou/mm3 (0.00-0.00); Lymphocytes # (Auto) 1.0 Thou/mm3 (1.0-4.8); Lymphocytes % (Auto) 7 % (10-50); Mean Corpuscular HGB Conc 32.4 g/dl (31.0-37.0); Mean Corpuscular Hemoglobin 28.1 pg (25.0-35.0); Mean Corpuscular Volume 87 fL (80-100); Monocytes # (Auto) 0.4 Thou/mm3 (0.0-0.8); Monocytes % (Auto) 3 % (0-12); Neutrophils # (Auto) 14.0 Thou/mm3 (1.8-7.7); Neutrophils % (Auto) 90 % (37-80); Nucleated Red Blood Cell # 0.00 Thou/mm3 (0.00-0.00); Nucleated Red Blood Cell % 0 /100 WBC (0); Platelet Count 219 Thou/mm3 (140-440); RDW Standard Deviation 50.0 fL (35.1-43.9); Red Blood Count 5.24 Miln/mm3 (4.50-5.90); White Blood Count 15.5 Thou/mm3 (3.8-10.6)
[2025-05-28] MEDS: BUDESONIDE RT 0.5 MG/2 ML NEBU INH (06:21)
[2025-05-28 06:36] LABS: Alanine Aminotransferase 64 U/L (10-49); Albumin, Serum 4.2 gm/dL (3.5-5.0); Albumin/Globulin Ratio 1.3 (1.2-2.2); Alkaline Phosphatase 99 U/L (46-116); Anion Gap 10 (7-16); Aspartate Amino Transferase 29 U/L (0-34); BUN/Creatinine Ratio 21 Ratio (12-20); Bilirubin,Total 0.3 mg/dL (0.3-1.2); Blood Urea Nitrogen 19 mg/dL (9-23); Calcium 9.0 mg/dL (8.3-10.6); Calcium (Corrected) 9.0 mg/dL (8.5-10.1); Carbon Dioxide 29.5 mMol/L (20.0-31.0); Chloride 100 mMol/L (98-107); Creatinine (Component) 0.9 mg/dL (0.6-1.3); Estimated Creatinine Clearance 152.7 mL/min (>60); Globulin 3.3 gm/dL (2.3-3.5); Glucose 196 mg/dL (74-106); Magnesium 1.8 mg/dL (1.6-2.6); Osmolality,Calculated 284 (275-295); Phosphorous 3.4 mg/dL (2.4-5.1); Potassium 3.9 mMol/L (3.4-5.1); Sodium 139 mMol/L (136-145); Total Protein 7.5 gm/dL (5.7-8.2); eGFR > 60 See Note
[2025-05-28] MEDS: AZITHROMYCIN INJ 500 MG in SODIUM CHLORIDE 0.9% 250 ML 250 ML 250 MG IV (08:51)
[2025-05-28] MEDS: ENOXAPARIN SOD INJ 40 MG/0.4 ML SYRINGE SC (08:52)
[2025-05-28] MEDS: INSULIN LISPRO (AdmeLOG) 1 UNIT/0.01 ML UNIT SC (08:52)
[2025-05-28] MEDS: FUROSEMIDE INJ 10 MG/ML VIAL 2 ML 40 MG IVP (09:08)
--- NOTE | 2025-05-28 11:15 | ESPR_ITS ---
Documentation for date of: 05/28/25 Subjective Subjective Interval history: Patient is a 44 years old male with PMH of morbid obesity, schizophrenia, hypertension, T2DM, BHAVESH on CPAP, and obesity hypoventilation syndrome on 2 L baseline O2 who was BIBA for several days of worsening cough productive of purulent sputum and dyspnea. Labs showed mild leukocytosis. ABG showed low blood pH 7.31, high pCO2 63, normal pO2 100, and high HCO3 31. He was started on BiPAP and was admitted to telemetry due to acute respiratory failure, started on IV antibiotics. During the day EMERGENCY REGISTRAR was called due to worsening respiratory distress, ABG showed pH 7.29 pCO2 66 pO2 84 HCO3 32, worse since admission, ICU team was consulted recommended to increase IPAP to 22 and EPAP to 10. Another EMERGENCY REGISTRAR called later today after breathing treatment when patient was complaining of SOB, follow up ABG from prior EMERGENCY REGISTRAR showed similar ABG results with pH of 7.29, PCO2 of 70, PO2 of 66 and bicarb of 33. Patient was noticed to have a high BIPAP leak, likely due to constant movement and posturing. Decision was made to upgrade patient to ICU for closer observation and possible intubation if condition continues to detoriate. 05/28/2025: Patient seen and examined at bedside, patient was transitioned from BiPAP to high flow nasal cannula this morning. Patient's inspiratory stridor highly likely related to upper airway obstruction, patient needs close outpatient ENT follow-up, would benefit from following up at [facility] [[email or web address]] for trending of care outpatient. IV steroids discontinued, inhaled steroids discontinued patient does have transaminitis, likely secondary to metabolic associated steatotic liver disease, patient would benefit from GLP-1 agonist subcutaneous once weekly outpatient, will improve symptoms of sleep apnea as well. Patient has on BiPAP outpatient, patient BiPAP settings outpatient should be IPAP 22, EPAP 10, otherwise we will continue with diuresis, will monitor Bicarb closely, will consider Diamox as needed for contraction alkalosis. Hold Coreg losartan, DVT prophylaxis dose adjusted. Previously patient has change in mentation had multiple rapid responses in telemetry for same, will observe patient overnight in ICU today and consider downgrade in a.m. Exam Vital Signs Temp Pulse Resp BP Pulse Ox O2 Del Method O2 Flow Rate 97.7 F 85 24 H 127/75 97 BiPAP 7 05/28/25 08:00 05/28/25 10:00 05/28/25 10:00 05/28/25 10:00 05/28/25 10:00 05/28/25 10:00 05/28/25 07:57 FiO2 50 05/28/25 10:00 Narrative Exam Gen: Well-developed Obese male on HFNC, in minimal distress. HEENT: NCAT, PERRLA, EOMI, MMM, anicteric conjunctivae. CVS: normal S1 and S2. Sinus rhythm. No M/R/G. Resp: coarse breath B/L. No rhonchi, rales, crackles or wheezing. Abd: soft, obese, non-tender, non-distended. BS+ in all 4 quadrants. MSK: Good ROM in BUE & BLE. No edema or rash. Neuro: CN II-XII grossly intact. Strength 5/5 in BUE & BLE. A&Ox3 Objective Labs 05/31/25 06:00 05/31/25 06:00 Labs: Laboratory Results - last 24 hr 05/27/25 05/27/25 05/27/25 14:26 16:24 16:25 WBC RBC Hgb Hct MCV MCH MCHC RDW Std Deviation Plt Count Neut % (Auto) Lymph % (Auto) [place] % (Auto) Eos % (Auto) Baso % (Auto) Neut # (Auto) Lymph # (Auto) [place] # (Auto) Eos # (Auto) Baso # (Auto) Immature Gran # (Auto) Absolute Nucleated RBC Immature Gran % Nucleated RBC % Puncture Site Right Radial Right Radial ABG pH 7.37 7.29 L ABG pCO2 57 H 66 H ABG pO2 62 L D 84 D ABG HCO3 33 H 32 H ABG O2 Saturation 93 96 ABG Base Excess 5 H 3 Oxygen Liter Flow 7 FiO2 21 50 Sodium 140 Potassium 4.4 Chloride 101 Carbon Dioxide 28.3 Anion Gap 11 BUN 11 Creatinine 0.8 Estim Creat Clear Calc Not Performed. eGFR > 60 BUN/Creatinine Ratio 14 Glucose 181 H Calculated Osmolality 283 Lactic Acid 1.9 Calcium 9.2 Corrected Calcium Phosphorus Magnesium Total Bilirubin AST ALT Alkaline Phosphatase Troponin I < 0.020 Total Protein Albumin Globulin Albumin/Globulin Ratio 05/27/25 05/27/25 05/27/25 16:50 19:20 20:03 WBC 15.4 H RBC 5.48 Hgb 15.2 Hct 47.8 MCV 87 MCH 27.7 MCHC 31.8 RDW Std Deviation 49.7 H Plt Count 237 D Neut % (Auto) 92 H Lymph % (Auto) 6 L [place] % (Auto) 1 Eos % (Auto) 0 Baso % (Auto) 0 Neut # (Auto) 14.1 H Lymph # (Auto) 0.9 L [place] # (Auto) 0.2 Eos # (Auto) 0.0 Baso # (Auto) 0.0 Immature Gran # (Auto) 0.20 H Absolute Nucleated RBC 0.00 Immature Gran % 1 H Nucleated RBC % 0 Puncture Site Left Radial ABG pH 7.29 L ABG pCO2 70 H ABG pO2 66 L ABG HCO3 33 H ABG O2 Saturation 92 ABG Base Excess 4 H Oxygen Liter Flow FiO2 50 Sodium Potassium Chloride Carbon Dioxide Anion Gap BUN Creatinine Estim Creat Clear Calc eGFR BUN/Creatinine Ratio Glucose Calculated Osmolality Lactic Acid 1.7 Calcium Corrected Calcium Phosphorus Magnesium Total Bilirubin AST ALT Alkaline Phosphatase Troponin I Total Protein Albumin Globulin Albumin/Globulin Ratio 05/27/25 05/28/25 05/28/25 22:41 04:30 04:32 WBC 15.5 H RBC 5.24 Hgb 14.7 Hct 45.4 MCV 87 MCH 28.1 MCHC 32.4 RDW Std Deviation 50.0 H Plt Count 219 Neut % (Auto) 90 H Lymph % (Auto) 7 L [place] % (Auto) 3 Eos % (Auto) 0 Baso % (Auto) 0 Neut # (Auto) 14.0 H Lymph # (Auto) 1.0 [place] # (Auto) 0.4 Eos # (Auto) 0.0 Baso # (Auto) 0.0 Immature Gran # (Auto) 0.13 H Absolute Nucleated RBC 0.00 Immature Gran % 1 H Nucleated RBC % 0 Puncture Site Left Radial Left Radial ABG pH 7.36 7.41 ABG pCO2 60 H D 53 H ABG pO2 96 D 83 ABG HCO3 34 H 33 H ABG O2 Saturation 98 95 ABG Base Excess 6 H 7 H Oxygen Liter Flow FiO2 50 50 Sodium 139 Potassium 3.9 D Chloride 100 Carbon Dioxide 29.5 Anion Gap 10 BUN 19 Creatinine 0.9 Estim Creat Clear Calc 152.7 eGFR > 60 BUN/Creatinine Ratio 21 H Glucose 196 H Calculated Osmolality 284 Lactic Acid Calcium 9.0 Corrected Calcium 9.0 Phosphorus 3.4 Magnesium 1.8 Total Bilirubin 0.3 AST 29 ALT 64 H Alkaline Phosphatase 99 D Troponin I Total Protein 7.5 Albumin 4.2 Globulin 3.3 Albumin/Globulin Ratio 1.3 ABG Interpretation ABG results: 05/27/25 05/27/25 05/27/25 02:45 05:15 14:26 ABG pH 7.31 L 7.30 L 7.37 ABG pCO2 63 H 59 H 57 H ABG pO2 100 118 H 62 L D ABG HCO3 31 H 29 H 33 H ABG O2 Saturation 98 93 93 ABG Base Excess 3 1 5 H 05/27/25 05/27/25 05/27/25 16:25 19:20 22:41 ABG pH 7.29 L 7.29 L 7.36 ABG pCO2 66 H 70 H 60 H D ABG pO2 84 D 66 L 96 D ABG HCO3 32 H 33 H 34 H ABG O2 Saturation 96 92 98 ABG Base Excess 3 4 H 6 H 05/28/25 04:32 ABG pH 7.41 ABG pCO2 53 H ABG pO2 83 ABG HCO3 33 H ABG O2 Saturation 95 ABG Base Excess 7 H Quality Measures Quality Measures VTE prophylaxis (Lovenox 60 mg SC BID) Assessment & Plan Assessment Current Active Medications: Generic Name Dose Route Start Last Admin Trade Name Freq PRN Reason Stop Dose Admin Acetaminophen 650 mg 05/27/25 03:56 Acetaminophen 325 Mg Tablet PO 06/26/25 03:55 Q6H PRN PAIN SCALE 1-3 (mild Albuterol/Ipratropium 3 ml 05/27/25 11:00 05/28/25 06:21 Albuterol/Ipratropium (Duoneb) Rt Katarina 3 Ml Nebu INH 06/26/25 10:59 3 ml Q4HRRT JEANNE Administration Atorvastatin Calcium 20 mg 05/27/25 21:00 05/27/25 21:58 Atorvastatin Calcium 20 Mg Tablet PO 06/26/25 20:59 Not Given HS JEANNE Carvedilol 6.25 mg 05/27/25 09:00 Carvedilol 3.125 Mg Tablet PO 06/26/25 08:59 BID JEANNE Dextrose 25 ml 05/27/25 16:52 Dextrose 50%-Water Inj 50 Ml Syringe IV 06/26/25 16:51 Q15MIN PRN BG 50-70 responsive npo pt Dextrose 50 ml 05/27/25 16:52 Dextrose 50%-Water Inj 50 Ml Syringe IV 06/26/25 16:51 Q15MIN PRN BG <50 OR BG <70 & pt unresponsive Enoxaparin Sodium 40 mg 05/27/25 09:00 05/28/25 08:52 Enoxaparin Sod Inj 40 Mg/0.4 Ml Syringe SC 06/10/25 08:59 40 mg QDAY JEANNE Administration Furosemide 40 mg 05/28/25 09:00 05/28/25 09:08 Furosemide Inj 10 Mg/Ml Vial 2 Ml IVP 06/27/25 08:59 40 mg QDAY JEANNE Administration Gemfibrozil 600 mg 05/27/25 21:00 05/28/25 09:52 Gemfibrozil 600 Mg Tablet PO 06/26/25 20:59 600 mg BID JEANNE Administration Glucagon 1 mg 05/27/25 16:52 Glucagon Inj 1 Mg Vial IM Q15MIN PRN BG <70, and no IV access Azithromycin 500 mg/ Sodium 250 mls @ 250 mls/hr 05/28/25 09:00 05/28/25 08:51 Chloride IV 06/04/25 08:59 250 mls/hr QDAY JEANNE Administration Ceftriaxone Sodium/Dextrose 1 gm in 50 mls @ 100 mls/hr 05/28/25 04:00 05/28/25 04:55 Rocephin/D5w 1gm Iv Premix IV 06/04/25 03:59 100 mls/hr QDAY JEANNE Administration Insulin Human Lispro 0 unit 05/27/25 17:00 05/28/25 08:52 Insulin Lispro (Admelog) 1 Unit/0.01 Ml Unit SC 06/26/25 16:59 1 unit AC JEANNE Administration Protocol Losartan Potassium 25 mg 05/27/25 18:00 05/27/25 18:39 Losartan Potassium 25 Mg Tablet PO 06/26/25 17:59 25 mg QDAY JEANNE Administration Methylprednisolone Sodium Succinate 40 mg 05/27/25 09:00 05/27/25 19:50 Methylprednisolone Sod Succ 40 Mg Vial IVP 06/03/25 08:59 40 mg BID JEANNE Administration Olanzapine 10 mg 05/28/25 09:00 05/28/25 09:52 Olanzapine 5 Mg Tablet PO 06/27/25 08:59 10 mg QDAY JEANNE Administration Ondansetron HCl 4 mg 05/27/25 03:56 Ondansetron Inj 2 Mg/Ml Inj 2 Ml IVP 06/26/25 03:55 Q6H PRN NAUSEA OR VOMITING Protocol Pantoprazole Sodium 40 mg 05/28/25 09:00 05/28/25 08:51 Pantoprazole Inj 40 Mg Vial IVP 06/27/25 08:59 40 mg QDAY JEANNE Administration Sennosides 1 tab 05/27/25 03:56 Senna Tablet PO 06/26/25 03:55 QDAY PRN constipation Protocol Sodium Chloride 3 ml 05/27/25 19:46 Sodium Chloride Rt Katarina 0.9% 3 Ml Nebu INH 06/26/25 19:45 PRN PRN SOLN Plan Patient is a 44 years old male with PMH of morbid obesity, schizophrenia, hypertension, T2DM, BHAVESH on CPAP, and obesity hypoventilation syndrome on 2 L baseline O2 who was initially was admitted to telemetry for acute respiratory failure, was upgraded to ICU due to worsening hypoxia and hypercapnia. Neuro: #Schizophrenia. At home on Abilify. Currently very somnolent, denies hallucinations. Plan: - Will hold olanzapine 10 mg QD for now Cardiovascular: #?Heart failure with preserved ejection fraction, EF 60% ECHO 03/2025: The transthoracic study is normal by two-dimensional, color flow imaging and Doppler interrogation. Normal left ventricular size and function. Normal right ventricle function. Approximate ejection fraction is 60%. Trace mitral and trace tricuspid regurgitation No wall motion abnormalities Left atrial diameter normal, no diastolic dysfunction noted per se in echo. -Lasix 40 mg daily -Strict intake and output, fluid restriction 1500 cc, daily weight -Consider repeat echo outpatient #Hypertension. Normotensive in ICU on upgrade. At home on Coreg and Lasix (unclear reason). Lasix was increased to 40 BID by day team. Plan: - Hold Coreg, lisinopril Respiratory: #Acute hypoxic hypercapnic respiratory failure 12/09: #COPD Exacerbation. #BHAVESH/OHS. #CAP. Patient is on home CPAP but compliance is unknown. Patient had multiple admissions due to AHRF, was intubated during last admission. Patient presented with SOB, productive cough and mild leukocytosis, CXR showed right base pneumonia. Failed BiPAP, follow up ABG showed worsening of hypercapnia and hypoxia, setting were adjusted to IPAP 22 and EPAP 10. Upon upgrade he was found to have large air leak 80-100 on BiPAP, likely due to his posturing and constant movement. BiPAP mask was changed to smaller mask, improvised C-collar was applied (no right size available) to keep his head straight and restrict excessive movement. Will continue current BiPAP settings and f/u ABG. Will consider intubation if condition progressively worsen. Plan: - continue on BiPAP with IPAP 22 and EPAP 10 when sleeping, strict monitoring for air leak no more then 50. - Called Jacqueline and updated BiPaP Settings, talked to Lyudmila. - continue scheduled DuoNeb Q4H. - continue IV ceftriaxone and azithromycin. - Discontinued INH fluticasone and IV methylprednisolone - continue improvised C-collar. - follow up ABG, currently on high flow nasal cannula Gastrointestinal: #Elevated LFTs. #Likely NAFLD Mildly elevated AST/ALT and alk phos, consistent with prior readings. No abdominal pain reported. Plan: - monitor with daily labs. - Consider discharge on SC semaglutide Renal: No active problem. Endocrine: #Metabolic syndrome. #Type 2 diabetes mellitus. Patient has metabolic syndrome, likely due to poor diet and antipsychotics. BMI 54. History of diabetes, hyperlipidemia (controlled with meds), morbid obesity. Plan: - continue on SSI. - glucose checks Q6H. - consider gastric bypass surgery and semaglutide for weight loss which may help with current episodes of acute hypercapnic respiratory failure. - continue home atorvastatin and gemfibrozil. Infectious Disease: #CAP. Patient presented with SOB, productive cough and mild leukocytosis, CXR showed right base pneumonia. Was started on IV antibiotics. Plan: - continue IV ceftriaxone 1 gm QD and azithromycin 500 mg QD. Hematology/Oncology: #Leukocytosis. Likely due to CAP/COPD exacerbation, on admission WBC 11.6, today WBC 15.4. Plan: - continue current antibiotic regiment. - monitor with daily labs. Diet: Sick small meals, carb consistent low, fluid restriction 1500 cc, calorie restriction 1200 DVT prophylaxis: Lovenox. GI prophylaxis: Protonix. Code status: FULL CODE. Disposition: ICU.will observe in ICU today, consider downgrade in a.m. if stable Case discussed with Attending physician Dr. Lee Yusuf MD. Mary Christopher MD Internal medicine PGY 2 Disclaimer: This note was dictated by speech recognition. Minor errors in group exercise class instructor may be present due to voice recognition software. Attending Provider Attestation/Addendum Patient seen and examined with the resident, Mary Christopher MD. Agree with the findings, assessment, and plan of care as documented separately differences below. Patient with sleep disordered breathing and obesity hypoventilation syndrome with home NIPPV. Patient's significant upper airway obstruction and volume overload led to acute hospitalization. Optimize blood fluid status and may require ENT evaluation as outpatient for definitive therapy or general surgery for inpatient evaluation for tracheostomy placement to facilitate interventions in the future. Patient responded appropriately to increase and both IPAP/EPAP for optimization of gas exchange. His pH has been normalizing. Will need to be cautious with fluid/diuresis to ensure that bicarb is not also overly increased leading to compensatory worsening of his respiratory acidosis. Patient must wear BiPAP at night. Hypoxia seen throughout the day with transition to high flow nasal cannula which needs to be further weaned in the coming days. Patient can resume diet now that he is stable on supplemental oxygen without need for positive pressure ventilation continuously. The use of noninvasive positive pressure ventilation will help to slowly return his respiratory drive closer to normal physiology though his compliance as outpatient will complicate this once again. This will be best addressed by close follow-up in the outpatient setting with one of our residents in the [facility] to help facilitate workup for potential upper airway surgery if deemed appropriate by ENT consultation or use of tracheostomy to relieve upper airway obstruction. In the interim, we will contact his DME provider, Jacqueline, to ensure that current settings on his home device match current inpatient settings that have shown to be effective during hospital course. Patient counseled extensively at bedside on both acute and long-term therapy given his recurrent admissions. Total critical care time: I personally spent 40 minutes for review of physiologic parameters, direct the plan of care time today, and extensive counseling with patient at bedside. This is exclusive of time spent teaching housestaff or performing any separate billable procedures. Patient remains at significant risk for further morbidity and mortality warranting close monitoring and care only available in the ICU. Patient required critical care services for acute decompensated heart failure, diastolic heart failure, and acute on chronic hypercapnic and hypoxic respiratory failure.
[2025-05-28 14:50] LABS: Allen Test Not Performed; Base Excess 9 (-3-3); HCO3 35 mEq/L (20-26); Inspired Oxygen, FIO2 30 %; O2 Saturation 95 % (91-98); PCO2 50 mmHg (32.0-48.0); PO2 68 mmHg (83-108); Puncture Site Site Not Noted; pH, Arterial 7.45 (7.35-7.45)
--- NOTE | 2025-05-28 17:07 | PC.SS ---
Update: Patient on high flow oxygen 25L. Patient receiving IV antibiotics. Patient remains P.O. feeding. Patient is afebrile. Harden catheter not in place.
--- NOTE | 2025-05-28 18:00 | ESPR_ITS ---
Documentation for date of: 05/28/25 Subjective Subjective Interval history: The patient is evaluated bedside, downgraded from ICU, received handoff from ICU resident Dr. Warner, patient is seen on high flow nasal cannula oxygen 25 L, saturating 92%, patient is awake and alert, mental status back at baseline. No stridor or wheezing heard on auscultation. ICU team recommended to decrease diuresis as echocardiogram shows normal EF as well as continuing BiPAP during the night and whenever patient is asleep during the day. Exam Vital Signs Temp Pulse Resp BP Pulse Ox O2 Del Method O2 Flow Rate 98.1 F 82 23 H 116/71 91 L BiPAP 05/28/25 16:00 05/28/25 16:00 05/28/25 16:00 05/28/25 16:00 05/28/25 16:00 05/28/25 16:00 05/28/25 13:54 FiO2 50 05/28/25 16:00 Narrative Exam Gen: Well-developed Obese male on HFNC, in no acute distress. HEENT: NCAT, PERRLA, EOMI, MMM, anicteric conjunctivae. CVS: normal S1 and S2. Sinus rhythm. No M/R/G. Resp: No rhonchi, rales, crackles or wheezing were heard on auscultation. Abd: soft, obese, non-tender, non-distended. BS+ in all 4 quadrants. MSK: Good ROM in BUE & BLE. No edema or rash. Neuro: CN II-XII grossly intact. Strength 5/5 in BUE & BLE. A&Ox3 Objective Labs 05/29/25 05:19 05/29/25 05:19 Labs: Laboratory Results - last 24 hr 05/27/25 05/27/25 05/27/25 19:20 20:03 22:41 WBC RBC Hgb Hct MCV MCH MCHC RDW Std Deviation Plt Count Neut % (Auto) Lymph % (Auto) [place] % (Auto) Eos % (Auto) Baso % (Auto) Neut # (Auto) Lymph # (Auto) [place] # (Auto) Eos # (Auto) Baso # (Auto) Immature Gran # (Auto) Absolute Nucleated RBC Immature Gran % Nucleated RBC % Puncture Site Left Radial Left Radial ABG pH 7.29 L 7.36 ABG pCO2 70 H 60 H D ABG pO2 66 L 96 D ABG HCO3 33 H 34 H ABG O2 Saturation 92 98 ABG Base Excess 4 H 6 H FiO2 50 50 Sodium Potassium Chloride Carbon Dioxide Anion Gap BUN Creatinine Estim Creat Clear Calc eGFR BUN/Creatinine Ratio Glucose Calculated Osmolality Lactic Acid 1.7 Calcium Corrected Calcium Phosphorus Magnesium Total Bilirubin AST ALT Alkaline Phosphatase Total Protein Albumin Globulin Albumin/Globulin Ratio 05/28/25 05/28/25 05/28/25 04:30 04:32 14:41 WBC 15.5 H RBC 5.24 Hgb 14.7 Hct 45.4 MCV 87 MCH 28.1 MCHC 32.4 RDW Std Deviation 50.0 H Plt Count 219 Neut % (Auto) 90 H Lymph % (Auto) 7 L [place] % (Auto) 3 Eos % (Auto) 0 Baso % (Auto) 0 Neut # (Auto) 14.0 H Lymph # (Auto) 1.0 [place] # (Auto) 0.4 Eos # (Auto) 0.0 Baso # (Auto) 0.0 Immature Gran # (Auto) 0.13 H Absolute Nucleated RBC 0.00 Immature Gran % 1 H Nucleated RBC % 0 Puncture Site Left Radial Site Not Noted ABG pH 7.41 7.45 ABG pCO2 53 H 50 H ABG pO2 83 68 L ABG HCO3 33 H 35 H ABG O2 Saturation 95 95 ABG Base Excess 7 H 9 H FiO2 50 30 Sodium 139 Potassium 3.9 D Chloride 100 Carbon Dioxide 29.5 Anion Gap 10 BUN 19 Creatinine 0.9 Estim Creat Clear Calc 152.7 eGFR > 60 BUN/Creatinine Ratio 21 H Glucose 196 H Calculated Osmolality 284 Lactic Acid Calcium 9.0 Corrected Calcium 9.0 Phosphorus 3.4 Magnesium 1.8 Total Bilirubin 0.3 AST 29 ALT 64 H Alkaline Phosphatase 99 D Total Protein 7.5 Albumin 4.2 Globulin 3.3 Albumin/Globulin Ratio 1.3 ABG Interpretation ABG results: 05/27/25 05/27/25 05/27/25 02:45 05:15 14:26 ABG pH 7.31 L 7.30 L 7.37 ABG pCO2 63 H 59 H 57 H ABG pO2 100 118 H 62 L D ABG HCO3 31 H 29 H 33 H ABG O2 Saturation 98 93 93 ABG Base Excess 3 1 5 H 05/27/25 05/27/25 05/27/25 16:25 19:20 22:41 ABG pH 7.29 L 7.29 L 7.36 ABG pCO2 66 H 70 H 60 H D ABG pO2 84 D 66 L 96 D ABG HCO3 32 H 33 H 34 H ABG O2 Saturation 96 92 98 ABG Base Excess 3 4 H 6 H 05/28/25 05/28/25 04:32 14:41 ABG pH 7.41 7.45 ABG pCO2 53 H 50 H ABG pO2 83 68 L ABG HCO3 33 H 35 H ABG O2 Saturation 95 95 ABG Base Excess 7 H 9 H Quality Measures Quality Measures VTE prophylaxis (Lovenox 60 mg SC BID) Assessment & Plan Assessment Current Active Medications: Generic Name Dose Route Start Last Admin Trade Name Freq PRN Reason Stop Dose Admin Acetaminophen 650 mg 05/27/25 03:56 Acetaminophen 325 Mg Tablet PO 06/26/25 03:55 Q6H PRN PAIN SCALE 1-3 (mild Albuterol/Ipratropium 3 ml 05/27/25 11:00 05/28/25 13:53 Albuterol/Ipratropium (Duoneb) Rt Katarina 3 Ml Nebu INH 06/26/25 10:59 3 ml Q4HRRT JEANNE Administration Atorvastatin Calcium 20 mg 05/27/25 21:00 05/27/25 21:58 Atorvastatin Calcium 20 Mg Tablet PO 06/26/25 20:59 Not Given HS JEANNE Carvedilol 6.25 mg 05/27/25 09:00 Carvedilol 3.125 Mg Tablet PO 06/26/25 08:59 BID JEANNE Dextrose 25 ml 05/27/25 16:52 Dextrose 50%-Water Inj 50 Ml Syringe IV 06/26/25 16:51 Q15MIN PRN BG 50-70 responsive npo pt Dextrose 50 ml 05/27/25 16:52 Dextrose 50%-Water Inj 50 Ml Syringe IV 06/26/25 16:51 Q15MIN PRN BG <50 OR BG <70 & pt unresponsive Enoxaparin Sodium 60 mg 05/28/25 21:00 Enoxaparin Sod Inj 60 Mg/0.6 Ml Syringe SC 06/11/25 20:59 BID JEANNE Furosemide 40 mg 05/28/25 09:00 05/28/25 09:08 Furosemide Inj 10 Mg/Ml Vial 2 Ml IVP 06/27/25 08:59 40 mg QDAY JEANNE Administration Gemfibrozil 600 mg 05/27/25 21:00 05/28/25 09:52 Gemfibrozil 600 Mg Tablet PO 06/26/25 20:59 600 mg BID JEANNE Administration Glucagon 1 mg 05/27/25 16:52 Glucagon Inj 1 Mg Vial IM Q15MIN PRN BG <70, and no IV access Azithromycin 500 mg/ Sodium 250 mls @ 250 mls/hr 05/28/25 09:00 05/28/25 08:51 Chloride IV 06/04/25 08:59 250 mls/hr QDAY JEANNE Administration Ceftriaxone Sodium/Dextrose 1 gm in 50 mls @ 100 mls/hr 05/28/25 04:00 05/28/25 04:55 Rocephin/D5w 1gm Iv Premix IV 06/04/25 03:59 100 mls/hr QDAY JEANNE Administration Insulin Human Lispro 0 unit 05/27/25 17:00 05/28/25 17:33 Insulin Lispro (Admelog) 1 Unit/0.01 Ml Unit SC 06/26/25 16:59 Not Given AC JEANNE Protocol Losartan Potassium 25 mg 05/27/25 18:00 05/27/25 18:39 Losartan Potassium 25 Mg Tablet PO 06/26/25 17:59 25 mg QDAY JEANNE Administration Methylprednisolone Sodium Succinate 40 mg 05/27/25 09:00 05/27/25 19:50 Methylprednisolone Sod Succ 40 Mg Vial IVP 06/03/25 08:59 40 mg BID JEANNE Administration Olanzapine 10 mg 05/28/25 09:00 05/28/25 09:52 Olanzapine 5 Mg Tablet PO 06/27/25 08:59 10 mg QDAY JEANNE Administration Ondansetron HCl 4 mg 05/27/25 03:56 Ondansetron Inj 2 Mg/Ml Inj 2 Ml IVP 06/26/25 03:55 Q6H PRN NAUSEA OR VOMITING Protocol Pantoprazole Sodium 40 mg 05/28/25 09:00 05/28/25 08:51 Pantoprazole Inj 40 Mg Vial IVP 06/27/25 08:59 40 mg QDAY JEANNE Administration Sennosides 1 tab 05/27/25 03:56 Senna Tablet PO 06/26/25 03:55 QDAY PRN constipation Protocol Sodium Chloride 3 ml 05/27/25 19:46 Sodium Chloride Rt Katarina 0.9% 3 Ml Nebu INH 06/26/25 19:45 PRN PRN SOLN Plan A 44-year-old male with a complex medical history including morbid obesity, schizophrenia, hypertension, T2DM, BHAVESH (on CPAP), and OHS (on 2L O2) was admitted for acute respiratory failure. #Acute on chronic hypoxic and hypercapnic respiratory failure #Obstructive sleep apnea Patient has obstructive sleep apnea and morbid obesity, was recently admitted with similar problem acute hypoxic and hypercapnic respiratory failure, requiring intubation, now on this presentation patient was somnolent, had audible stridor while on BiPAP. ICU recommended increasing patient's EPAP to 10 and IPAP 22, which helped with keeping the upper airway patent, improvement in stridor, but patient required overnight upgrade to ICU for closer monitoring and follow-up. No wheezing on auscultation, patient less likely has COPD more likely BHAVESH leading to respiratory distress. ? Continue BiPAP with IPAP 22 and EPAP 10, during night as well as if sleeping during the day. ? Monitoring for airleak no more than 50% ? Continue IV antibiotics ceftriaxone and azithromycin ? Continue c-collar ? Monitor for worsening respiratory distress, as patient is high risk, previously required intubation. ? Currently patient saturating at 92%, per ICU okay to target O2 sats 88 to 92% given patient's chronic condition. ? Holding methylprednisone 40 mg twice daily, is less likely COPD patient might need PFTs on outpatient basis for diagnosis. ? Holding psychiatric/sedating medications olanzapine, Abilify #HFpEF Echocardiogram on 03/08/2025 showed EF 60%, RVSP 25, small pericardial effusion. Was noted. Will continue IV diuresis. Less likely pulmonary hypertension based on echocardiogram. ? IV Lasix 40 mg daily ? Holding Coreg due to concurrent respiratory distress ? Holding losartan for now, systolic blood pressure less than 120 #Acute encephalopathy?now resolved Likely secondary to hypercapnia and hypoxia due to respiratory distress and BHAVESH. Now patient is alert and oriented, mental status back at baseline, watching football on television. No focal neurological deficit. ? Continue observation for worsening mental status, ? Repeat ABG if worsening mental status, to rule out hypercapnia. #Pneumonia Chest x-ray shows right base pneumonia, noted blunting on chest x-ray, but ultrasound negative for pleural fluid. ?Pending blood cultures, pending MRSA screen ? Continue IV ceftriaxone and azithromycin #Type 2 diabetes mellitus ? Insulin lispro sliding scale ? Carb consistent diet #Morbid obesity Patient will benefit from GLP-1 antagonist . Upper airway obstruction secondary to morbid obesity, if patient's condition continues to deteriorate despite weight loss, might consider ENT follow-up on outpatient basis. Disposition: Downgrade to telemetry, DVT prophylaxis: Lovenox 70 twice daily GI prophylaxis: None Diet: Low carb consistent Lines: PIV CODE STATUS: Full Plan of care discussed with attending Dr. Tammy Lee Pgy 3 Attending Provider Attestation/Addendum I have examined the patient, reviewed labs and imaging findings, discussed the case with the resident(s), and reviewed entered orders. I agree with the plan of care as outlined in this note. Dr. Tammy MD
[2025-05-28] MEDS: ATORVASTATIN CALCIUM 20 MG TABLET PO (20:26)
[2025-05-28] MEDS: ENOXAPARIN SOD INJ 60 MG/0.6 ML SYRINGE SC (20:26)
[2025-05-29] VITALS (15 sets, daily range): BP systolic 121–156; BP diastolic 65–97; PULSE 72–97; RESP 19–29; TEMP 35.9–36.3; O2SAT 90–97; BMI 53.0
[2025-05-29] MEDS: ALBUTEROL/IPRATROPIUM (Duoneb) RT SOL 3 ML NEBU INH ×6 (02:14→22:40)
[2025-05-29 05:38] LABS: Basophils # (Auto) 0.1 Thou/mm3 (0.0-0.2); Basophils % (Auto) 1 % (0-2.5); Eosinophils # (Auto) 0.1 Thou/mm3 (0.0-0.5); Eosinophils % (Auto) 1 % (0-10); Hematocrit 44.7 % (41.0-53.0); Hemoglobin 14.7 g/dL (13.5-16.0); Immature Granulocytes Auto 0.06 Thou/mm3 (0.00-0.00); Lymphocytes # (Auto) 2.3 Thou/mm3 (1.0-4.8); Lymphocytes % (Auto) 18 % (10-50); Mean Corpuscular HGB Conc 32.9 g/dl (31.0-37.0); Mean Corpuscular Hemoglobin 27.7 pg (25.0-35.0); Mean Corpuscular Volume 84 fL (80-100); Monocytes # (Auto) 0.8 Thou/mm3 (0.0-0.8); Monocytes % (Auto) 6 % (0-12); Neutrophils # (Auto) 9.0 Thou/mm3 (1.8-7.7); Neutrophils % (Auto) 74 % (37-80); Nucleated Red Blood Cell # 0.00 Thou/mm3 (0.00-0.00); Nucleated Red Blood Cell % 0 /100 WBC (0); Platelet Count 210 Thou/mm3 (140-440); RDW Standard Deviation 50.7 fL (35.1-43.9); Red Blood Count 5.31 Miln/mm3 (4.50-5.90); White Blood Count 12.3 Thou/mm3 (3.8-10.6)
[2025-05-29 06:19] LABS: Alanine Aminotransferase 79 U/L (10-49); Albumin, Serum 3.9 gm/dL (3.5-5.0); Albumin/Globulin Ratio 1.2 (1.2-2.2); Alkaline Phosphatase 92 U/L (46-116); Anion Gap 12 (7-16); Aspartate Amino Transferase 45 U/L (0-34); BUN/Creatinine Ratio 28 Ratio (12-20); Bilirubin,Total 0.4 mg/dL (0.3-1.2); Blood Urea Nitrogen 28 mg/dL (9-23); Calcium 9.0 mg/dL (8.3-10.6); Calcium (Corrected) 9.1 mg/dL (8.5-10.1); Carbon Dioxide 30.8 mMol/L (20.0-31.0); Chloride 99 mMol/L (98-107); Creatinine (Component) 1.0 mg/dL (0.6-1.3); Estimated Creatinine Clearance 134.6 mL/min (>60); Globulin 3.2 gm/dL (2.3-3.5); Glucose 123 mg/dL (74-106); Magnesium 1.8 mg/dL (1.6-2.6); Osmolality,Calculated 289 (275-295); Phosphorous 4.2 mg/dL (2.4-5.1); Potassium 3.4 mMol/L (3.4-5.1); Sodium 142 mMol/L (136-145); Total Protein 7.1 gm/dL (5.7-8.2); eGFR > 60 See Note
[2025-05-29] MEDS: MAGNESIUM OXIDE 400 MG TABLET PO (08:14)
[2025-05-29] MEDS: ENOXAPARIN SOD INJ 60 MG/0.6 ML SYRINGE SC ×2 (08:15→20:36)
[2025-05-29] MEDS: FUROSEMIDE INJ 10 MG/ML VIAL 2 ML 40 MG IVP (08:15)
[2025-05-29] MEDS: cefTRIAXone/D5w 1gm IV premix 1 GM/50 ML BAG IV (08:15)
[2025-05-29] MEDS: POTASSIUM CHLORIDE 10% 20 MEQ/15 ML UDC 40 MEQ PO (09:57)
[2025-05-29] MEDS: Magnesium Sulfate 2 GM Ivpb 2 GM/50 ML BAG IV (09:58)
[2025-05-29] MEDS: AZITHROMYCIN INJ 500 MG in SODIUM CHLORIDE 0.9% 250 ML 250 ML 250 MG IV (10:40)
[2025-05-29] MEDS: INSULIN LISPRO (AdmeLOG) 1 UNIT/0.01 ML UNIT SC (11:46)
[2025-05-29 11:54] LABS: Collection Type, Urine Clean Catch; Squamous Epithelial Cell,Urine 0 /hpf (0-5)
[2025-05-29 12:02] LABS: Bilirubin,Urine Negative (Negative); Blood,Urine Negative (Negative); Clarity,Urine Clear (Clear/Hazy); Color,Urine Lt-Yellow (Lt Yel-Yel); Culture Indicated,Urine Not Indicated; Glucose, Urine Negative (Negative); Ketones,Urine Negative (Negative); Leukocyte Esterase,Urine Negative (Negative); Nitrite,Urine Negative (Negative); PH,Urine 6.5 (5.0-7.0); Protein,Urine Negative (Neg - Trace); RBC,Urine 1 /hpf (0-3); Specific Gravity,Urine 1.012 (1.001-1.035); Urobilinogen,Urine Negative mg/dL (0.0-1.0); WBC,Urine < 1 /hpf (0-5)
[2025-05-29 12:53] LABS: Amphetamine/Methamp Scrn,U Negative (Negative); Barbiturate Screen,Urine Negative (Negative); Benzodiazepines Screen,Urine Negative (Negative); Benzoylecgonine Screen, Ur Negative (Negative); Fentanyl Screen,Urine Negative (Negative); Opiate Screen,Urine Negative (Negative); THC Screen,Urine Negative (Negative)
--- NOTE | 2025-05-29 13:41 | ESPR_ITS ---
Documentation for date of: 05/29/25 ICU downgrade. Patient was initially admitted to ICU for further monitoring of airway, patient never intubated. Patient was downgraded after bipap adjustments 22 ipap /10 epap. conitnue to hold Olazapine. HOLD Coreg, currently normal tensive. Continue IV Ceftriaxone and Azithromycin. Paln to discharge within the next 24 hours. Still requires high flow with Fio2 of 50. Subjective Subjective Interval history: Patient was seen and evaluated today at bedside. Patient acknowledged an improvement in his shortness of breath. Patient continued to deny chest pain. Patient was saturating at 95% on 25L HFNC oxygen at FiO2 50. Patient slept later in the morning with BiPAP IPAP 22 EPAP 10 respiratory rate 24 FiO2 50. No wheezing or inspiratory stridor were noted on physical exam. Exam Vital Signs Temp Pulse Resp BP Pulse Ox O2 Del Method O2 Flow Rate 96.7 F L 84 28 H 136/97 H 93 L BiPAP 25 05/29/25 12:00 05/29/25 12:00 05/29/25 12:00 05/29/25 12:00 05/29/25 12:00 05/29/25 12:00 05/29/25 12:00 FiO2 50 05/29/25 12:00 Narrative Exam General Appearance: Alert & Oriented to person, place, time, and condition; well-nourished male who is lying in bed in mild respiratory distress. HEENT: Skull symmetrical and atraumatic. Conjunctivae pink and moist. Pupils equal, round, reactive to light and accommodation (PERRL). External ear without lesion or discharge. Straight, nares patient, mucosa pink, no discharge. No thyroid nodule appreciated. No cervical lymphadenopathy. Cardio: Normal Rate and Rhythm with S1 and S2 heart sounds. No murmurs or extra heart sounds auscultated. No bruits on carotid auscultation. No peripheral edema or cyanosis. Lungs: Symmetric with good expansion. Chest and back non-tender. Breath sounds vesicular without crackles, wheezing, inspiratory stridor, or rhonchi Abdomen: Non-tender, Non-distended, Normal Reactive Bowel Sounds Neuro: Alert, cooperative, oriented to person, place, and time. Speech clear. CN grossly intact. Upper motor strength 5/5 and Lower motor strength 5/5. Sensation intact. Objective Labs 05/30/25 04:50 05/30/25 04:50 Labs: Laboratory Results - last 24 hr 05/28/25 05/29/25 05/29/25 14:41 05:19 11:26 WBC 12.3 H RBC 5.31 Hgb 14.7 Hct 44.7 MCV 84 MCH 27.7 MCHC 32.9 RDW Std Deviation 50.7 H Plt Count 210 Neut % (Auto) 74 Lymph % (Auto) 18 Braxton % (Auto) 6 Eos % (Auto) 1 Baso % (Auto) 1 Neut # (Auto) 9.0 H Lymph # (Auto) 2.3 Braxton # (Auto) 0.8 Eos # (Auto) 0.1 Baso # (Auto) 0.1 Immature Gran # (Auto) 0.06 H Absolute Nucleated RBC 0.00 Immature Gran % 1 H Nucleated RBC % 0 Puncture Site Site Not Noted ABG pH 7.45 ABG pCO2 50 H ABG pO2 68 L ABG HCO3 35 H ABG O2 Saturation 95 ABG Base Excess 9 H FiO2 30 Sodium 142 Potassium 3.4 D Chloride 99 Carbon Dioxide 30.8 Anion Gap 12 BUN 28 H Creatinine 1.0 Estim Creat Clear Calc 134.6 eGFR > 60 BUN/Creatinine Ratio 28 H Glucose 123 H D Calculated Osmolality 289 Calcium 9.0 Corrected Calcium 9.1 Phosphorus 4.2 Magnesium 1.8 Total Bilirubin 0.4 AST 45 H ALT 79 H Alkaline Phosphatase 92 Total Protein 7.1 Albumin 3.9 Globulin 3.2 Albumin/Globulin Ratio 1.2 Ur Collection Type Clean Catch Urine Color Lt-Yellow Urine Clarity Clear Urine pH 6.5 Ur Specific [place] 1.012 Urine Protein Negative Urine Glucose (UA) Negative Urine Ketones Negative Urine Blood Negative Urine Nitrite Negative Urine Bilirubin Negative Urine Urobilinogen (Auto) Negative Ur Leukocyte Esterase Negative Urine RBC 1 Urine WBC < 1 Ur Squamous Epith Cells 0 Urine Bacteria None Ur Culture Indicated? Not Indicated Urine Opiates Screen Negative Urine Fentanyl Screen Negative Ur Barbiturates Screen Negative U Amphetamin/Meth Scrn Negative U Benzodiazepines Scrn Negative U Cocaine Metab Screen Negative U Marijuana (THC) Screen Negative ABG Interpretation ABG results: 05/27/25 05/27/25 05/27/25 02:45 05:15 14:26 ABG pH 7.31 L 7.30 L 7.37 ABG pCO2 63 H 59 H 57 H ABG pO2 100 118 H 62 L D ABG HCO3 31 H 29 H 33 H ABG O2 Saturation 98 93 93 ABG Base Excess 3 1 5 H 05/27/25 05/27/25 05/27/25 16:25 19:20 22:41 ABG pH 7.29 L 7.29 L 7.36 ABG pCO2 66 H 70 H 60 H D ABG pO2 84 D 66 L 96 D ABG HCO3 32 H 33 H 34 H ABG O2 Saturation 96 92 98 ABG Base Excess 3 4 H 6 H 05/28/25 05/28/25 04:32 14:41 ABG pH 7.41 7.45 ABG pCO2 53 H 50 H ABG pO2 83 68 L ABG HCO3 33 H 35 H ABG O2 Saturation 95 95 ABG Base Excess 7 H 9 H Quality Measures Quality Measures VTE prophylaxis (Lovenox 60 mg SC BID) Assessment & Plan Assessment Current Active Medications: Generic Name Dose Route Start Last Admin Trade Name Freq PRN Reason Stop Dose Admin Acetaminophen 650 mg 05/27/25 03:56 Acetaminophen 325 Mg Tablet PO 06/26/25 03:55 Q6H PRN PAIN SCALE 1-3 (mild Albuterol/Ipratropium 3 ml 05/27/25 11:00 05/29/25 10:38 Albuterol/Ipratropium (Duoneb) Rt Katarina 3 Ml Nebu INH 06/26/25 10:59 3 ml Q4HRRT JEANNE Administration Atorvastatin Calcium 20 mg 05/27/25 21:00 05/28/25 20:26 Atorvastatin Calcium 20 Mg Tablet PO 06/26/25 20:59 20 mg HS JEANNE Administration Carvedilol 6.25 mg 05/27/25 09:00 Carvedilol 3.125 Mg Tablet PO 06/26/25 08:59 BID JEANNE Dextrose 25 ml 05/27/25 16:52 Dextrose 50%-Water Inj 50 Ml Syringe IV 06/26/25 16:51 Q15MIN PRN BG 50-70 responsive npo pt Dextrose 50 ml 05/27/25 16:52 Dextrose 50%-Water Inj 50 Ml Syringe IV 06/26/25 16:51 Q15MIN PRN BG <50 OR BG <70 & pt unresponsive Enoxaparin Sodium 60 mg 05/28/25 21:00 05/29/25 08:15 Enoxaparin Sod Inj 60 Mg/0.6 Ml Syringe SC 06/11/25 20:59 60 mg BID JEANNE Administration Furosemide 40 mg 05/28/25 09:00 05/29/25 08:15 Furosemide Inj 10 Mg/Ml Vial 2 Ml IVP 06/27/25 08:59 40 mg QDAY JEANNE Administration Gemfibrozil 600 mg 05/27/25 21:00 05/29/25 08:14 Gemfibrozil 600 Mg Tablet PO 06/26/25 20:59 600 mg BID JEANNE Administration Glucagon 1 mg 05/27/25 16:52 Glucagon Inj 1 Mg Vial IM Q15MIN PRN BG <70, and no IV access Azithromycin 500 mg/ Sodium 250 mls @ 250 mls/hr 05/28/25 09:00 05/29/25 10:40 Chloride IV 06/04/25 08:59 250 mls/hr QDAY JEANNE Administration Ceftriaxone Sodium/Dextrose 1 gm in 50 mls @ 100 mls/hr 05/28/25 04:00 05/29/25 08:15 Rocephin/D5w 1gm Iv Premix IV 06/04/25 03:59 100 mls/hr QDAY JEANNE Administration Insulin Human Lispro 0 unit 05/27/25 17:00 05/29/25 11:46 Insulin Lispro (Admelog) 1 Unit/0.01 Ml Unit SC 06/26/25 16:59 1 unit AC JEANNE Administration Protocol Losartan Potassium 25 mg 05/27/25 18:00 05/27/25 18:39 Losartan Potassium 25 Mg Tablet PO 06/26/25 17:59 25 mg QDAY JEANNE Administration Methylprednisolone Sodium Succinate 40 mg 05/27/25 09:00 05/27/25 19:50 Methylprednisolone Sod Succ 40 Mg Vial IVP 06/03/25 08:59 40 mg BID JEANNE Administration Olanzapine 10 mg 05/28/25 09:00 05/28/25 09:52 Olanzapine 5 Mg Tablet PO 06/27/25 08:59 10 mg QDAY JEANNE Administration Ondansetron HCl 4 mg 05/27/25 03:56 Ondansetron Inj 2 Mg/Ml Inj 2 Ml IVP 06/26/25 03:55 Q6H PRN NAUSEA OR VOMITING Protocol Pantoprazole Sodium 40 mg 05/28/25 09:00 05/29/25 08:15 Pantoprazole Inj 40 Mg Vial IVP 06/27/25 08:59 40 mg QDAY JEANNE Administration Sennosides 1 tab 05/27/25 03:56 Senna Tablet PO 06/26/25 03:55 QDAY PRN constipation Protocol Sodium Chloride 3 ml 05/27/25 19:46 Sodium Chloride Rt Katarina 0.9% 3 Ml Nebu INH 06/26/25 19:45 PRN PRN SOLN Plan Plan Zay Bautista is a 44-year-old male with a PMH of morbid obesity, schizophrenia, hypertension, T2DM, BHAVESH on CPAP, and obesity hypoventilation syndrome on 2 L baseline of O2 who was BIBA for several days of worsening cough productive of purulent sputum and dyspnea. Patient is admitted for acute hypercapnic respiratory failure likely secondary OHS and BHAVESH. Patient was upgraded to ICU 05/27 after two rapid responses for increased work of respiration and tachypnea. Patient downgraded back to med-tele 05/28. #Acute hypercapnic respiratory failure likely secondary to #Obesity Hyperventilation Syndrome and #Obstructive Sleep Apnea on CPAP Patient is morbidly obese and requires CPAP for BHAVESH at home. Patient was admitted and put on BiPAP to improve respiratory status. The patient has a history of respiratory failure and was on Rybelsus as of 05/26/25. Patient's decline in respiratory status can be attributed to lack of diaphragmatic wall movement associated with increased adipose tissue and more work needed to supply adequate ventilation, leading for concern of obesity hypoventilation syndrome. This can be seen on interview with the patient falling asleep and needing to be woken up multiple times. Patient's symptoms align with OHS exacerbation, as patient has experienced dyspnea leading to a decline in respiratory function. Patient denied cough or sputum production. Upon admission 05/27 overnight: patient's SpO2 was 94% on 4 L nasal cannula with 40% FiO2. ABG pH 7.31 pCO2 63 pO2 100 HCO3 31 Patient had rapid response 05/27 at approximately 1610 for increased rate of breathing and tachypnea. Patient exhibited inspiratory stridor most likely due to obstruction of trachea in neck; ABG, BMP, CBC, Lactate ordered; ABG 7.29 pCO2 7.29 pCO2 66 pO2 84 HCO3 32. Glucose 181. Lactic Acid 1.9. CXR showed increased neck circumference consistent with airway obstruction; BiPAP respiratory rate set to 24 with FiO2 50. IPAP 22 EPAP 10.Patient had one other rapid response 05/27 at approximately 2000 for increased respiratory work and tachypnea with rate in the 30s-40s, saturating at 90%. ABG prior to the response: pH 7.29 pCO2 70 pO2 66 HCO3 33. Patient was upgraded to ICU 05/27 overnight after two rapid responses for increased work of breathing and tachypean with respiratory rates in the 30s-40s. In the ICU, patient was kept on DuoNeb breathing treatments, but IV and inhaled steroids were discontinued. Differentials for Acute Hypercapnic Respiratory Failure: OHS exacerbation and BHAVESH is a possible diagnosis because the patient has increased work of breathing and lack of diaphragmatic excursion; PE is a possible diagnosis, but less likely given this patient is not tachycardic and not complaining of chest pain; CHF is a possibe diagnosis, but less likely given that the patient is not fluid overloaded; AK is another possible diagnosis, but less likely given that the patient is not complaining of any chest pain and trop is negative <0.02 05/27. CXR 05/27 overnight: showed possible bilateral pleural effusion. CMP was unremarkable. ABG 05/27 pH 7.30 pCO2 59 pO2 118 HCO3 29 Repeat pH 7.37 pCO2 57 pO2 62 HCO3 33 ABG 05/28 pH 7.45 pCO2 50 pO2 68 HCO3 Plan: -Continue DuoNeb Q4HRRT for symptomatic relief of SOB via bronchodilation -IV methylprednisolone 40 mg BID discontinued per ICU recommendation, appreciate recommendations -Maintain SpO2 between 88-92% for adequate tissue oxygenation while minimizing risk of oxygen-induced hypercapnia (due to hypoventilation and [place]aldane effect) -Titrate supplemental oxygen as needed -Patient to remain on BiPAP overnight, per ICU recommendations during rapid response, appreciate recommendations #Community Acquired Pneumonia CXR 05/27 demonstrated right base pneumonia. Given the patient's respiratory status, rate of clearance of pathogens is most likely decreased. In addition, if patient is producing sputum, pathogens can harvest in the secretions, making pneumonia a likely occurrence. Sputum culture showed no growth Plan: -Ceftriaxone 1 g IV QD (05/27-06/01) to cover the most common causes of pneumonia given the patient's age, such as Strep Pneumoniae and Haemophilus Influenza -Azithromycin 500 mg IV BID (05/27-7/26) to cover atypical organisms given this patient's potentially immunocompromised status #Congestive Heart Failure #Heart Failure with Preserved Ejection Fraction (EF 55-60% 03/08/2025) #Pericardial Effusion #Pleural Effusion (?) Patient continues to demonstrate symptoms of heart failure with dyspnea, but signs, such as JVD, crackles, and edema are not present. BNP negative, less likely CHF exacerbation, none the less follow up with Pleural US given possible pleural effusion noted on Cxr. CXR 05/27 showed vascular congestion and possible pleural effusion Pleural US 05/27 showed possible fluid collection surrounding the lungs; possibly due to vascular fluid build up caused by heart failure or BHAVESH causing increased blood pressure and pulmonary vascular constriction or deconditioning due to increased metabolic stress Echocardiogram completed 03/08/25 Dr. Kerns demonstrated EF 55-60%, normal LV and RV size and function, RVSP 25mmHg, mild mitral regurgitation, mild tricuspid regurgitation, small pericardial effusion, AV peak velocity 150.5 cm/s AV PG 9.1 mmHg, AV area cont eq pki 1.5cm2 Pleural drainage 05/27: No fluid EKG 05/28: Sinus rhythm with rate of 75-85 Plan: -Follow up with pleural US, for possible pleural effusion -Monitor for symptoms and signs of heart failure, including dyspnea, orthopnea, paroxysmal nocturnal dyspnea and signs such as JVD, crackles, and edema -Repeat CXR and echo as needed #Hypertension Patient has a history of hypertension Patient received amlodipine 5 mg PO 05/27, subsequently discontinued Patient received Lasix 20 mg PO this morning 05/27 Plan: -Holding Lasix 40 mg IVP QD -Holding Losartan 25 mg PO QD -Holding Carvedilol 6.25 mg PO BID -All per ICU recommendation #Hyperglycemia #Diabetes Mellitus Type 2, non insulin dependent Patient has a past medical history of diabetes mellitus type 2, previous a1c on 6.8 (03/2025) which likely may be worsen by current steriod use and metabolic dysregulation and Olazapine which is knonw to cause metabolic dysfuglation. Home medication of Metformin and Rybelusus. Pertinent labs: 05/27 glucose 181 FSBG 188 05/28 glucose 196 05/29 glucose 123 Most recent A1C's 03/08/25 6.8 12/04/24 7.5 09/17/24 6.1 Plan: -Insulin Sliding Scale -Monitor glucose levels and possible repeat A1C #Hyperlipidemia Patient has a history of increased lipids. Possible reasons: morbid obesity leading to increased fat accumulation, atypical anti-psychotic usage leading to metabolic dysregulation, stress response from inflammation Pertinent labs- 12/05/24 TG 353 TC 204 LDL 93 HDL 40 05/27/25 TG 135 TC 131 LDL 67 HDL 37 Plan: -Continue Atorvastatin 20 mg PO QHS and Gemfibrozil 600 mg BID #Mild Transmaminitis Patient has a history of consistently elevated liver enzymes over the past couple of months Pertinent labs: 05/27 AST 39 ALT 81 05/28 AST 29 ALT 64 05/29 AST 45 ALT 79 Possible differentials: steatohepatitis given the 19.1 cm fatty infiltration found on liver US 12/04/24, metabolic stress due to obesity, alcohol use in the past? Previous Hepatitis panel negative (2019) Plan -Continue to monitor, consider repeat hepatitis panel. #Schizophrenia Patient has a history of schizophrenia, previously patient on Abilify, but after medication reconciliation, patient denied taking abilify and now on Olazapine. Disconitnue Abilify and continue Olanzapine. Plan: -Holding Olanzapine 10 mg PO QD -Discontinue Abilify 2 mg PO BID Hospital Management: Disposition: FR 1500 ml; Breathing treatments for Acute Hypercapnic Respiratory Failure secondary to OHS and BHAVESH Diet: carbohydrate consistent low GI Prophylaxis: none Bowel Prophylaxis: Senna DVT Prophylaxis: Lovenox 40 mg SC QD uptitrated 60 mg SC QD per ICU recommendation, Dr. Yusuf, appreciate recommendations CODE STATUS: Full Code Case reviewed with attending Dr. Munoz and senior resident Dr. Campbell. Mitzi Ponce MS-4 - The patient's plan was discussed with attending Dr. Rebekah Campbell MD PGY2 Internal Medicine Attending Provider Attestation/Addendum I have examined the patient, reviewed labs and imaging findings, discussed the case with the resident(s), and reviewed entered orders. I agree with the plan of care as outlined in this note, with these additional summaries/recommendations: Patient seen at bedside. No acute overnight events. Patient seen on BiPAP upon entering the room and patient appears at his normal mental status. Patient's lunch arrived and BiPAP removed. Respiratory therapy notified. Patient was counseled that he needs to wear this mask and use his machine at home whenever he is sleeping. Patient showed understanding. Patient has acute on chronic hypoxic and hypercapnic respiratory failure secondary to BHAVESH/OHS. Lower suspicion for COPD although ultimately patient will need pulmonary function test outpatient to evaluate for COPD. Patient counseled on weight loss. Continue IV antibiotics for bacterial pneumonia most likely secondary to gram-negative rods. Continue insulin sliding scale with Accu-Cheks. Diabetic diet. We will continue to wean patient from nasal cannula and if he remains stable then anticipate discharge in the next 24 to 48 hours. Patient updated on the plan and agreement. All questions answered satisfaction. Please see residents note for additional details and management. Dr. Tammy MD
--- NOTE | 2025-05-29 14:43 | PC.SS ---
Rounding: Continue to wean down O2 requirements
[2025-05-29] MEDS: ATORVASTATIN CALCIUM 20 MG TABLET PO (20:36)
[2025-05-30] VITALS (15 sets, daily range): BP systolic 118–150; BP diastolic 75–96; PULSE 73–108; RESP 15–96; TEMP 36.1–36.4; O2SAT 92–100
[2025-05-30] MEDS: ALBUTEROL/IPRATROPIUM (Duoneb) RT SOL 3 ML NEBU INH ×6 (01:56→22:31)
[2025-05-30 05:52] LABS: Basophils # (Auto) 0.1 Thou/mm3 (0.0-0.2); Basophils % (Auto) 1 % (0-2.5); Eosinophils # (Auto) 0.3 Thou/mm3 (0.0-0.5); Eosinophils % (Auto) 3 % (0-10); Hematocrit 47.2 % (41.0-53.0); Hemoglobin 15.3 g/dL (13.5-16.0); Immature Granulocytes Auto 0.02 Thou/mm3 (0.00-0.00); Lymphocytes # (Auto) 2.1 Thou/mm3 (1.0-4.8); Lymphocytes % (Auto) 23 % (10-50); Mean Corpuscular HGB Conc 32.4 g/dl (31.0-37.0); Mean Corpuscular Hemoglobin 27.9 pg (25.0-35.0); Mean Corpuscular Volume 86 fL (80-100); Monocytes # (Auto) 0.7 Thou/mm3 (0.0-0.8); Monocytes % (Auto) 8 % (0-12); Neutrophils # (Auto) 5.8 Thou/mm3 (1.8-7.7); Neutrophils % (Auto) 65 % (37-80); Nucleated Red Blood Cell # 0.00 Thou/mm3 (0.00-0.00); Nucleated Red Blood Cell % 0 /100 WBC (0); Platelet Count 221 Thou/mm3 (140-440); RDW Standard Deviation 50.8 fL (35.1-43.9); Red Blood Count 5.48 Miln/mm3 (4.50-5.90); White Blood Count 9.0 Thou/mm3 (3.8-10.6)
[2025-05-30 06:03] LABS: Alanine Aminotransferase 91 U/L (10-49); Albumin, Serum 4.1 gm/dL (3.5-5.0); Albumin/Globulin Ratio 1.3 (1.2-2.2); Alkaline Phosphatase 95 U/L (46-116); Anion Gap 8 (7-16); Aspartate Amino Transferase 46 U/L (0-34); BUN/Creatinine Ratio 24 Ratio (12-20); Bilirubin,Total 0.7 mg/dL (0.3-1.2); Blood Urea Nitrogen 24 mg/dL (9-23); Calcium 9.0 mg/dL (8.3-10.6); Calcium (Corrected) 9.0 mg/dL (8.5-10.1); Carbon Dioxide 30.6 mMol/L (20.0-31.0); Chloride 103 mMol/L (98-107); Creatinine (Component) 1.0 mg/dL (0.6-1.3); Estimated Creatinine Clearance 132.8 mL/min (>60); Globulin 3.2 gm/dL (2.3-3.5); Glucose 113 mg/dL (74-106); Magnesium 2.0 mg/dL (1.6-2.6); Osmolality,Calculated 288 (275-295); Phosphorous 4.0 mg/dL (2.4-5.1); Potassium 3.6 mMol/L (3.4-5.1); Sodium 142 mMol/L (136-145); Total Protein 7.3 gm/dL (5.7-8.2); eGFR > 60 See Note
[2025-05-30] MEDS: AZITHROMYCIN INJ 500 MG in SODIUM CHLORIDE 0.9% 250 ML 250 ML 250 MG IV (08:58)
[2025-05-30] MEDS: ENOXAPARIN SOD INJ 60 MG/0.6 ML SYRINGE SC ×2 (08:58→20:31)
[2025-05-30] MEDS: cefTRIAXone/D5w 1gm IV premix 1 GM/50 ML BAG IV (08:58)
[2025-05-30] MEDS: POTASSIUM CHLORIDE 10% 20 MEQ/15 ML UDC 40 MEQ PO (09:10)
--- NOTE | 2025-05-30 15:07 | PD.RESPRO ---
Documentation for date of: 05/30/25 Patient examined at bedside. Continues being titrated off high flow to NC. Walk test saturating well at 99% on room air. Patient has home oxygen pending sister to drop off oxygen tank. Plan to discharge within the next 24 hours. Continue to use Bipap when asleep regardless if its night time or day time. Resumed Losartan, holding off Carvedilol, and Olazapine on hold, resume upon discharge as patient has a past medical history of schizophrenia. Nicole Walker, PGY-2 Subjective Subjective Interval history: Patient was seen and evaluated today at bedside. Patient noted improvement in his shortness of breath. Patient continued to deny chest pain and palpitations. Patient was on 20L HFNC oxygen FiO2 30 saturating 96% in the morning. In the afternoon, patient was on 2L NC oxygen FiO2 30 saturating 99% in the evening. Overall, patient's status is improving. Exam Vital Signs Temp Pulse Resp BP Pulse Ox O2 Del Method O2 Flow Rate 97.3 F 89 20 134/87 H 100 Nasal Cannula 2 05/30/25 12:00 05/30/25 14:25 05/30/25 14:25 05/30/25 12:00 05/30/25 14:25 05/30/25 12:00 05/30/25 14:25 FiO2 30 05/30/25 09:15 Narrative Exam General Appearance: Alert & Oriented to person, place, time, and condition; well-nourished male who is lying in bed in no acute distress. HEENT: Skull symmetrical and atraumatic. Conjunctivae pink and moist. Pupils equal, round, reactive to light and accommodation (PERRL). External ear without lesion or discharge. Straight, nares patient, mucosa pink, no discharge. No thyroid nodule appreciated. No cervical lymphadenopathy. Cardio: Normal Rate and Rhythm with S1 and S2 heart sounds. No murmurs or extra heart sounds auscultated. No bruits on carotid auscultation. No peripheral edema or cyanosis. Lungs: Symmetric with good expansion. Chest and back non-tender. Breath sounds vesicular without crackles, wheezing, rhonchi, or inspiratory stridor. Abdomen: Non-tender, Non-distended, Normal Reactive Bowel Sounds Neuro: Alert, cooperative, oriented to person, place, time, and condition. Speech clear. CN grossly intact. Upper motor strength 5/5 and Lower motor strength 5/5. Sensation intact. Objective Labs 05/31/25 06:00 05/30/25 04:50 Labs: Laboratory Results - last 24 hr 05/30/25 04:50 WBC 9.0 RBC 5.48 Hgb 15.3 Hct 47.2 MCV 86 MCH 27.9 MCHC 32.4 RDW Std Deviation 50.8 H Plt Count 221 Neut % (Auto) 65 Lymph % (Auto) 23 [place] % (Auto) 8 Eos % (Auto) 3 Baso % (Auto) 1 Neut # (Auto) 5.8 Lymph # (Auto) 2.1 [place] # (Auto) 0.7 Eos # (Auto) 0.3 Baso # (Auto) 0.1 Immature Gran # (Auto) 0.02 H Absolute Nucleated RBC 0.00 Immature Gran % 0 Nucleated RBC % 0 Sodium 142 Potassium 3.6 Chloride 103 Carbon Dioxide 30.6 Anion Gap 8 BUN 24 H Creatinine 1.0 Estim Creat Clear Calc 132.8 eGFR > 60 BUN/Creatinine Ratio 24 H Glucose 113 H Calculated Osmolality 288 Calcium 9.0 Corrected Calcium 9.0 Phosphorus 4.0 Magnesium 2.0 Total Bilirubin 0.7 AST 46 H ALT 91 H Alkaline Phosphatase 95 Total Protein 7.3 Albumin 4.1 Globulin 3.2 Albumin/Globulin Ratio 1.3 ABG Interpretation ABG results: 05/27/25 05/27/25 05/27/25 02:45 05:15 14:26 ABG pH 7.31 L 7.30 L 7.37 ABG pCO2 63 H 59 H 57 H ABG pO2 100 118 H 62 L D ABG HCO3 31 H 29 H 33 H ABG O2 Saturation 98 93 93 ABG Base Excess 3 1 5 H 05/27/25 05/27/25 05/27/25 16:25 19:20 22:41 ABG pH 7.29 L 7.29 L 7.36 ABG pCO2 66 H 70 H 60 H D ABG pO2 84 D 66 L 96 D ABG HCO3 32 H 33 H 34 H ABG O2 Saturation 96 92 98 ABG Base Excess 3 4 H 6 H 05/28/25 05/28/25 04:32 14:41 ABG pH 7.41 7.45 ABG pCO2 53 H 50 H ABG pO2 83 68 L ABG HCO3 33 H 35 H ABG O2 Saturation 95 95 ABG Base Excess 7 H 9 H Quality Measures Quality Measures VTE prophylaxis (Lovenox 60 mg SC BID) Assessment & Plan Assessment Current Active Medications: Generic Name Dose Route Start Last Admin Trade Name Freq PRN Reason Stop Dose Admin Acetaminophen 650 mg 05/27/25 03:56 Acetaminophen 325 Mg Tablet PO 06/26/25 03:55 Q6H PRN PAIN SCALE 1-3 (mild Albuterol/Ipratropium 3 ml 05/27/25 11:00 05/30/25 14:23 Albuterol/Ipratropium (Duoneb) Rt Katarina 3 Ml Nebu INH 06/26/25 10:59 3 ml Q4HRRT JEANNE Administration Atorvastatin Calcium 20 mg 05/27/25 21:00 05/29/25 20:36 Atorvastatin Calcium 20 Mg Tablet PO 06/26/25 20:59 20 mg HS JEANNE Administration Carvedilol 6.25 mg 05/27/25 09:00 Carvedilol 3.125 Mg Tablet PO 06/26/25 08:59 BID JEANNE Dextrose 25 ml 05/27/25 16:52 Dextrose 50%-Water Inj 50 Ml Syringe IV 06/26/25 16:51 Q15MIN PRN BG 50-70 responsive npo pt Dextrose 50 ml 05/27/25 16:52 Dextrose 50%-Water Inj 50 Ml Syringe IV 06/26/25 16:51 Q15MIN PRN BG <50 OR BG <70 & pt unresponsive Enoxaparin Sodium 60 mg 05/28/25 21:00 05/30/25 08:58 Enoxaparin Sod Inj 60 Mg/0.6 Ml Syringe SC 06/11/25 20:59 60 mg BID JEANNE Administration Furosemide 40 mg 05/28/25 09:00 05/29/25 08:15 Furosemide Inj 10 Mg/Ml Vial 2 Ml IVP 06/27/25 08:59 40 mg QDAY JEANNE Administration Gemfibrozil 600 mg 05/27/25 21:00 05/30/25 08:57 Gemfibrozil 600 Mg Tablet PO 06/26/25 20:59 600 mg BID JEANNE Administration Glucagon 1 mg 05/27/25 16:52 Glucagon Inj 1 Mg Vial IM Q15MIN PRN BG <70, and no IV access Azithromycin 500 mg/ Sodium 250 mls @ 250 mls/hr 07/22/25 09:00 05/30/25 08:58 Chloride IV 06/04/25 08:59 250 mls/hr QDAY JEANNE Administration Ceftriaxone Sodium/Dextrose 1 gm in 50 mls @ 100 mls/hr 05/28/25 04:00 05/30/25 08:58 Rocephin/D5w 1gm Iv Premix IV 06/04/25 03:59 100 mls/hr QDAY JEANNE Administration Insulin Human Lispro 0 unit 05/27/25 17:00 05/30/25 12:05 Insulin Lispro (Admelog) 1 Unit/0.01 Ml Unit SC 06/26/25 16:59 Not Given AC JEANNE Protocol Losartan Potassium 25 mg 05/27/25 18:00 05/27/25 18:39 Losartan Potassium 25 Mg Tablet PO 06/26/25 17:59 25 mg QDAY JEANNE Administration Olanzapine 5 mg 05/30/25 09:00 Olanzapine 5 Mg Tablet PO 06/29/25 08:59 QDAY JEANNE Ondansetron HCl 4 mg 05/27/25 03:56 Ondansetron Inj 2 Mg/Ml Inj 2 Ml IVP 06/26/25 03:55 Q6H PRN NAUSEA OR VOMITING Protocol Sennosides 1 tab 05/27/25 03:56 Senna Tablet PO 06/26/25 03:55 QDAY PRN constipation Protocol Sodium Chloride 3 ml 05/27/25 19:46 Sodium Chloride Rt Katarina 0.9% 3 Ml Nebu INH 06/26/25 19:45 PRN PRN SOLN Plan Plan Zay Bautista is a 44-year-old male with a PMH of morbid obesity, schizophrenia, hypertension, T2DM, BHAVESH on CPAP, and obesity hypoventilation syndrome on 2 L baseline of O2 who was BIBA for several days of worsening cough productive of purulent sputum and dyspnea. Patient is admitted for acute hypercapnic respiratory failure likely secondary OHS and BHAVESH. Patient was upgraded to ICU 05/27 after two rapid responses for increased work of respiration and tachypnea. Patient downgraded back to med-tele 05/28. Patient's condition is improving. #Acute hypercapnic respiratory failure likely secondary to #Obesity Hyperventilation Syndrome and #Obstructive Sleep Apnea on CPAP Patient is morbidly obese and requires CPAP for BHAVESH at home. Patient was admitted and put on BiPAP to improve respiratory status. The patient has a history of respiratory failure and was on Rybelsus as of 05/26/25. Patient's decline in respiratory status can be attributed to lack of diaphragmatic wall movement associated with increased adipose tissue and more work needed to supply adequate ventilation, leading for concern of obesity hypoventilation syndrome. This can be seen on interview with the patient falling asleep and needing to be woken up multiple times. Patient's symptoms align with OHS exacerbation, as patient has experienced dyspnea leading to a decline in respiratory function. Patient denied cough or sputum production. Upon admission 05/27 overnight: patient's SpO2 was 94% on 4 L nasal cannula with 40% FiO2. ABG pH 7.31 pCO2 63 pO2 100 HCO3 31 Patient had rapid response 05/27 at approximately 1610 for increased rate of breathing and tachypnea. Patient exhibited inspiratory stridor most likely due to obstruction of trachea in neck; ABG, BMP, CBC, Lactate ordered; ABG 7.29 pCO2 7.29 pCO2 66 pO2 84 HCO3 32. Glucose 181. Lactic Acid 1.9. CXR showed increased neck circumference consistent with airway obstruction; BiPAP respiratory rate set to 24 with FiO2 50. IPAP 22 EPAP 10.Patient had one other rapid response 05/27 at approximately 2000 for increased respiratory work and tachypnea with rate in the 30s-40s, saturating at 90%. ABG prior to the response: pH 7.29 pCO2 70 pO2 66 HCO3 33. Patient was upgraded to ICU 05/27 overnight after two rapid responses for increased work of breathing and tachypean with respiratory rates in the 30s-40s. In the ICU, patient was kept on DuoNeb breathing treatments, but IV and inhaled steroids were discontinued. Differentials for Acute Hypercapnic Respiratory Failure: OHS exacerbation and BHAVESH is a possible diagnosis because the patient has increased work of breathing and lack of diaphragmatic excursion; PE is a possible diagnosis, but less likely given this patient is not tachycardic and not complaining of chest pain; CHF is a possibe diagnosis, but less likely given that the patient is not fluid overloaded; WI is another possible diagnosis, but less likely given that the patient is not complaining of any chest pain and trop is negative <0.02 05/27. CXR 05/27 overnight: showed possible bilateral pleural effusion. CMP was unremarkable. ABG 05/27 pH 7.30 pCO2 59 pO2 118 HCO3 29 Repeat pH 7.37 pCO2 57 pO2 62 HCO3 33 ABG 05/28 pH 7.45 pCO2 50 pO2 68 HCO3 35 Plan: -Continue DuoNeb Q4HRRT for symptomatic relief of SOB via bronchodilation -IV methylprednisolone 40 mg BID discontinued per ICU recommendation, appreciate recommendations -Maintain SpO2 between 88-92% for adequate tissue oxygenation while minimizing risk of oxygen-induced hypercapnia (due to hypoventilation and [place] effect) -Titrate supplemental oxygen as needed -Patient to remain on BiPAP overnight, per ICU recommendations during rapid response, appreciate recommendations #Community Acquired Pneumonia CXR 05/27 demonstrated right base pneumonia. Given the patient's respiratory status, rate of clearance of pathogens is most likely decreased. In addition, if patient is producing sputum, pathogens can harvest in the secretions, making pneumonia a likely occurrence. Sputum culture showed no growth Plan: -Ceftriaxone 1 g IV QD (05/27-06/01) to cover the most common causes of pneumonia given the patient's age, such as Strep Pneumoniae and Haemophilus Influenza -Azithromycin 500 mg IV BID (05/27-06/01) to cover atypical organisms given this patient's potentially immunocompromised status #Congestive Heart Failure #Heart Failure with Preserved Ejection Fraction (EF 55-60% 03/08/2025) #Pericardial Effusion Patient continues to demonstrate symptoms of heart failure with dyspnea, but signs, such as JVD, crackles, and edema are not present. BNP negative, less likely CHF exacerbation, none the less follow up with Pleural US given possible pleural effusion noted on Cxr. CXR 05/27 showed vascular congestion and possible pleural effusion Pleural US 05/27 showed possible fluid collection surrounding the lungs; possibly due to vascular fluid build up caused by heart failure or BHAVESH causing increased blood pressure and pulmonary vascular constriction or deconditioning due to increased metabolic stress Echocardiogram completed 03/08/25 Dr. Kerns demonstrated EF 55-60%, normal LV and RV size and function, RVSP 25mmHg, mild mitral regurgitation, mild tricuspid regurgitation, small pericardial effusion, AV peak velocity 150.5 cm/s AV PG 9.1 mmHg, AV area cont eq pki 1.5cm2 Pleural drainage 05/27: No fluid EKG 05/28: Sinus rhythm with rate of 75-85 Plan: -Holding off diuretics, appears clinical dry, no carackles noted. -Monitor for symptoms and signs of heart failure, including dyspnea, orthopnea, paroxysmal nocturnal dyspnea and signs such as JVD, crackles, and edema -Repeat CXR and echo as needed #Hypertension Patient has a history of hypertension Patient received amlodipine 5 mg PO 05/27, subsequently discontinued Patient received Lasix 20 mg PO 05/27 Plan: -Restart Losartan 25 mg PO QD -Holding Lasix 40 mg IVP QD -Holding Carvedilol 6.25 mg PO BID #Diabetes Mellitus Type 2, non insulin dependent #Hyperglycemia Patient has a past medical history of diabetes mellitus type 2, previous a1c on 6.8 (03/2025) which likely may be worsen by current steriod use and metabolic dysregulation and Olazapine which is known to cause metabolic dysregulation. Home medication of Metformin and Rybelusus. Pertinent labs: 05/27 glucose 181 FSBG 188 05/28 glucose 196 05/29 glucose 123 Most recent A1C's 03/08/25 6.8 12/04/24 7.5 09/17/24 6.1 Plan: -Insulin Sliding Scale -Monitor glucose levels and possible repeat A1C #Hyperlipidemia Patient has a history of increased lipids. Possible reasons: morbid obesity leading to increased fat accumulation, atypical anti-psychotic usage leading to metabolic dysregulation, stress response from inflammation Pertinent labs- 12/05/24 TG 353 TC 204 LDL 93 HDL 40 05/27/25 TG 135 TC 131 LDL 67 HDL 37 Plan: -Continue Atorvastatin 20 mg PO QHS and Gemfibrozil 600 mg BID #Mild Transmaminitis Patient has a history of consistently elevated liver enzymes over the past couple of months Pertinent labs: 05/27 AST 39 ALT 81 05/28 AST 29 ALT 64 05/29 AST 45 ALT 79 05/30 AST 46 ALT 91 Possible differentials: steatohepatitis given the 19.1 cm fatty infiltration found on liver US 12/04/24, metabolic stress due to obesity, alcohol use in the past? Previous Hepatitis panel negative (2019) Plan -Continue to monitor, consider repeat hepatitis panel. #Schizophrenia Patient has a history of schizophrenia, previously patient on Abilify, but after medication reconciliation, patient denied taking abilify and now on Olazapine. Disconitnue Abilify and continue Olanzapine. Plan: -Holding Olanzapine 10 mg PO QD, resume upon discharge -Discontinue Abilify 2 mg PO BID Hospital Management: Disposition: FR 1500 ml; Breathing treatments for Acute Hypercapnic Respiratory Failure secondary to OHS and BHAVESH Diet: carbohydrate consistent low GI Prophylaxis: none Bowel Prophylaxis: Senna DVT Prophylaxis: Lovenox 40 mg SC QD uptitrated 60 mg SC QD per ICU recommendation, nila Guallpa recommendations CODE STATUS: Full Code Case reviewed with attending Dr. Munoz and senior resident Dr. Campbell. Mitzi Ponce MS-4 - The patient's plan was discussed with attending Dr. Tammy Campbell MD PGY2 Internal Medicine Attending Provider Attestation/Addendum I have examined the patient, reviewed labs and imaging findings, discussed the case with the resident(s), and reviewed entered orders. I agree with the plan of care as outlined in this note, with these additional summaries/recommendations: Patient seen at bedside. No acute overnight events. Patient tolerated BiPAP overnight and was transitioned to high flow nasal cannula then eventually nasal cannula. Will continue to wean O2 supplementation. Order ambulation test. Patient was counseled extensively on importance of wearing BiPAP whenever sleeping. In-house pulmonology has been in contact with the patient's DME supplier for setting changes. Patient has acute on chronic hypoxic and hypercapnic respiratory failure secondary to BHAVESH/OHS. Lower suspicion for COPD although ultimately patient will need pulmonary function test outpatient to evaluate for COPD. Patient counseled on weight loss. Continue IV antibiotics for bacterial pneumonia most likely secondary to gram-negative rods. Continue insulin sliding scale with Accu-Cheks. Diabetic diet. We will continue to wean patient from nasal cannula and if he remains stable then anticipate discharge in the next 24 to 48 hours. Patient updated on the plan and agreement. All questions answered satisfaction. Please see residents note for additional details and management. Dr. Tammy MD
[2025-05-30] MEDS: INSULIN LISPRO (AdmeLOG) 1 UNIT/0.01 ML UNIT SC (17:11)
[2025-05-30] MEDS: LOSARTAN POTASSIUM 25 MG TABLET PO (18:04)
[2025-05-30] MEDS: ATORVASTATIN CALCIUM 20 MG TABLET PO (20:31)
[2025-05-31] VITALS (11 sets, daily range): BP systolic 126–162; BP diastolic 80–100; PULSE 76–95; RESP 18–95; TEMP 36.1–37.1; O2SAT 92–100; BMI 52.6
--- NOTE | 2025-05-31 01:46 | PC.NURSE ---
Pt got transferred to room 375 form tele floor room 273, pt is alert and oriented, on RA during the transfer, RT will put pt on BiPAP for sleep apnea. No C/O of pain or SOB at this time.
[2025-05-31] MEDS: ALBUTEROL/IPRATROPIUM (Duoneb) RT SOL 3 ML NEBU INH ×3 (03:28→10:56)
[2025-05-31 06:38] LABS: Basophils # (Auto) 0.1 Thou/mm3 (0.0-0.2); Basophils % (Auto) 1 % (0-2.5); Eosinophils # (Auto) 0.6 Thou/mm3 (0.0-0.5); Eosinophils % (Auto) 6 % (0-10); Hematocrit 47.6 % (41.0-53.0); Hemoglobin 15.3 g/dL (13.5-16.0); Immature Granulocytes Auto 0.04 Thou/mm3 (0.00-0.00); Lymphocytes # (Auto) 1.6 Thou/mm3 (1.0-4.8); Lymphocytes % (Auto) 15 % (10-50); Mean Corpuscular HGB Conc 32.1 g/dl (31.0-37.0); Mean Corpuscular Hemoglobin 28.1 pg (25.0-35.0); Mean Corpuscular Volume 87 fL (80-100); Monocytes # (Auto) 0.6 Thou/mm3 (0.0-0.8); Monocytes % (Auto) 6 % (0-12); Neutrophils # (Auto) 7.6 Thou/mm3 (1.8-7.7); Neutrophils % (Auto) 73 % (37-80); Nucleated Red Blood Cell # 0.00 Thou/mm3 (0.00-0.00); Nucleated Red Blood Cell % 0 /100 WBC (0); Platelet Count 186 Thou/mm3 (140-440); RDW Standard Deviation 52.1 fL (35.1-43.9); Red Blood Count 5.45 Miln/mm3 (4.50-5.90); White Blood Count 10.5 Thou/mm3 (3.8-10.6)
[2025-05-31 07:32] LABS: Alanine Aminotransferase 91 U/L (10-49); Albumin, Serum 4.0 gm/dL (3.5-5.0); Albumin/Globulin Ratio 1.3 (1.2-2.2); Alkaline Phosphatase 94 U/L (46-116); Anion Gap 12 (7-16); Aspartate Amino Transferase 42 U/L (0-34); BUN/Creatinine Ratio 16 Ratio (12-20); Bilirubin,Total 0.6 mg/dL (0.3-1.2); Blood Urea Nitrogen 14 mg/dL (9-23); Calcium 8.8 mg/dL (8.3-10.6); Calcium (Corrected) 8.8 mg/dL (8.5-10.1); Carbon Dioxide 25.9 mMol/L (20.0-31.0); Chloride 105 mMol/L (98-107); Creatinine (Component) 0.9 mg/dL (0.6-1.3); Estimated Creatinine Clearance 146.8 mL/min (>60); Globulin 3.2 gm/dL (2.3-3.5); Glucose 107 mg/dL (74-106); Magnesium 1.9 mg/dL (1.6-2.6); Osmolality,Calculated 285 (275-295); Phosphorous 3.6 mg/dL (2.4-5.1); Potassium 4.1 mMol/L (3.4-5.1); Sodium 143 mMol/L (136-145); Total Protein 7.2 gm/dL (5.7-8.2); eGFR > 60 See Note
[2025-05-31] MEDS: cefTRIAXone/D5w 1gm IV premix 1 GM/50 ML BAG IV (09:04)
[2025-05-31] MEDS: ENOXAPARIN SOD INJ 60 MG/0.6 ML SYRINGE SC (09:04)
[2025-05-31] MEDS: LOSARTAN POTASSIUM 25 MG TABLET PO (09:05)
[2025-05-31] MEDS: AZITHROMYCIN INJ 500 MG in SODIUM CHLORIDE 0.9% 250 ML 250 ML 250 MG IV (10:38)
--- NOTE | 2025-05-31 14:48 | PD.RESDS ---
Planned Discharge Date 05/31/25 DS: Providers Provider Date of admission: 05/27/25 03:56 Primary care physician: Physician No Primary/Family Admitting Provider: Kt Canas MD Attending Provider on Admission: Tania Welch MD Consults: 05/27/25 02:34 Referral Respiratory Therapy Stat Comment: BiPAP Attending Provider on DC: Zofia Torres Discharging Provider: Zofia Torres Anticipated date of discharge: 05/31/25 DS: Diagnosis Problem List Completed Was Problem List Reviewed/Reconciled?: Yes Hospital Course Status at Discharge Cognitive/behavioral status at discharge: Summary: Patient is a 44 year old male with a past medical history of morbid obesity, OHS, BHAVESH on CPAP, non-insulin dependent type 2 diabetes mellitus, HTN, HLD, and schizophrenia who presented to the ED via EMS overnight 05/27 for worsening shortness of breath over the past several days and was admitted for acute hypercapnic respiratory failure likely secondary to OHS and BHAVESH. ED Course: Patient presented to the ED via EMS overnight 05/27 with a several day history of worsening shortness of breath. Patient stated that he had tried multiple breathing treatments at home, but had not noticed any improvement. Patient was saturating at 88% with EMS and saturated above 90% after three breathing treatments. Patient stated that he is on a CPAP at home. Patient denied chest pain. Patient denied other associated symptoms, such as fever or chills. EKG demonstrated sinus rhythm with heart rate 115 and possible old anterior myocardial infarction. CXR demonstrated findings consistent with right base pneumonia, mild congestive heart failure, and moderate osteopenia. Pertinent labs incude: WBC 10.9 glucose 127 AST 38 ALT 76 Alk Phos 110 Trop <0.002 BNP <20 ABH pH 7.31 pCO2 63 HCO3 31. Treatments provided include: Methylprednisolone 125 mg IVP x1 Levalbuterol 2.5 mg INH x1 NaCal nebulizer 6 ml INH for breathing treatment, NS fluid resuscitation, and IV Ceftriaxone 1 g IV Azithromycin 500 mg for infective prophylaxis. Hospital Course: Patient was admitted overnight 05/27 for acute hypercapnic respiratory failure likely secondary to OHS and BHAVESH. Patient experienced two rapid responses on 05/27 for increased work of breathing and tachypnea with respiratory rate in the 30s to 40s; first one at 1610 and second one at 2000. ABG for the first rapid response revealed pH 7.29 pCO2 66 pO2 84 HCO3 32. CXR demonstrated increased neck circumference obstructing the airway, right base pneumonia, and vascular congestion consistent with mild heart failure. ABG prior to the second rapid response revealed pH 7.29 pCO2 70 pO2 66 HCO3 33. On 05/27, patient was upgraded overnight to ICU. Per ICU recommendation, IV methylprednisolone 40 mg BID, fluticasone 44 mcg x2 puffs, IV Lasix 40 mg QD, Coreg 6.25 mg PO BID, Losartan 25 mg PO QD and Olanzapine 10 mg PO QD were held and patient's BiPAP settings were adjusted to IPAP 22 and EPAP 10. Patient was downgraded to med-telemetry 05/28. Patient remained stable on BiPAP for sleep and was weaned off oxygen completely. Pleural drainage resulted in no fluid. EKG demonstrated sinus rhythm with heart rate of 83. Pertinent labs include: ABG pH 7.45 pCO2 50 pO2 68 HCO3 35 WBC 10.5 glucose 107 AST 42 ALT 91. Treatments in med-telemetry included: DuoNeb Q4HRRT for breathing, sliding scale insulin for diabetes, restarting Losartan 25 mg PO QD for HTN, Atorvastatin 20 mg PO QHS and Gemfibrozil 600 mg PO BID for HLD, IV Ceftriaxone 1 g and IV Azithromycin 500 mg for pneumonia, and Enoxaparin 40 mg SC BID uptitrated to 60 mg SC BID for VTE prophylaxis. Patient was discontinued on Olanzapine 10 mg PO QD and Rybelsus. Patient to continue Amoxicillin-Clavulinic acid 875-125 mg tablet for 4 days after discharge and medrol juan f after discharge. Patient started on Ozempic upon discharge. Patient to continue additional medications as prescribed. Patient is stable and progressing back to baseline. Instructions: -Recommend to discontinue olanzapine and haloperidol, as we are concerned about over sedation, which leads to respiratory distress in your case. Please seek psychiatry referral from your primary doctor, to optimize your psychiatric medications, it is of great importance as to much sedation can be of life-threatening consequences. -Also recommend to discontinue Rybelsus, we have sent you a prescription for Ozempic to be taken once weekly, which should help with weight loss, reach out to your primary care doctor regarding follow-up prescriptions of Ozempic. -Also recommend continuing antibiotic for 4 more days and taking methylprednisolone per Dosepak instructions. Restarted new medication for your blood pressure losartan 25 mg daily. -Recommend to continue using home CPAP on same AVAPS settings as prior. Please use CPAP during sleep at night and also if sleeping during the day. -In case of worsening symptoms please return to emergency room. #Acute hypercapnic respiratory failure likely secondary to #Obesity Hyperventilation Syndrome and #Obstructive Sleep Apnea on CPAP #Community Acquired Pneumonia #Congestive Heart Failure #Heart Failure with Preserved Ejection Fraction (EF 55-60% 03/08/2025) #Pericardial Effusion #Hypertension #Diabetes Mellitus Type 2, non insulin dependent #Hyperglycemia #Hyperlipidemia #Mild Transmaminitis #Schizophrenia Case reviewed with attending Dr. Munoz and senior resident Dr. Campbell. Mitzi Ponce MS-4 - The patient's plan was discussed with attending Dr. Mai Campbell MD PGY2 Internal Medicine Time Spent with Patient Time attestation: Total time spent providing and/or coordinating discharge services: Time spent: Greater than 30 minutes Exam Vital Signs Temp Pulse Resp BP Pulse Ox O2 Del Method O2 Flow Rate 98.8 F 93 20 162/100 H 95 Room Air 2 05/31/25 12:00 05/31/25 12:00 05/31/25 12:00 05/31/25 12:00 05/31/25 12:00 05/31/25 12:00 05/31/25 04:00 FiO2 25 05/31/25 04:00 Narrative Exam General Appearance: Alert & Oriented to person, place, time, and condition; well-nourished male who is lying in bed in no acute distress. HEENT: Skull symmetrical and atraumatic. Conjunctivae pink and moist. Pupils equal, round, reactive to light and accommodation (PERRL). External ear without lesion or discharge. Straight, nares patient, mucosa pink, no discharge. No thyroid nodule appreciated. No cervical lymphadenopathy. Cardio: Normal Rate and Rhythm with S1 and S2 heart sounds. No murmurs or extra heart sounds auscultated. No bruits on carotid auscultation. No peripheral edema or cyanosis. Lungs: Symmetric with good expansion. Chest and back non-tender. Breath sounds vesicular without crackles, wheezing or rhonchi Abdomen: Non-tender, Non-distended, Normal Reactive Bowel Sounds Neuro: Alert, cooperative, oriented to person, place, time, and condition. Speech clear. CN grossly intact. Upper motor strength 5/5 and Lower motor strength 5/5. Sensation intact. Discharge Plan Plan Patient Disposition: HOME (Self Care) Care Plan Goals: Recommend to discontinue olanzapine and haloperidol, as we are concerned about over sedation, which leads to respiratory distress in your case. Please seek psychiatry referral from your primary doctor, to optimize your psychiatric medications, it is of great importance as to much sedation can be of life-threatening consequences. Also recommend to discontinue Rybelsus, we have sent you a prescription for Ozempic to be taken once weekly, which should help with weight loss, reach out to your primary care doctor regarding follow-up prescriptions of Ozempic. Also recommend continuing antibiotic for 4 more days and taking methylprednisolone per Dosepak instructions. Restarted new medication for your blood pressure losartan 25 mg daily. Recommend to continue using home CPAP on same AVAPS settings as prior. Please use CPAP during sleep at night and also if sleeping during the day. In case of worsening symptoms please return to emergency room. Prescriptions/Referrals Prescriptions/Med Rec: New losartan 25 mg Tablet 25 mg PO QDAY 30 Days Qty: 30 0RF amoxicillin-pot clavulanate 875-125 mg tablet 1 tab PO BID Qty: 8 0RF methylprednisolone [Medrol (Juan F)] 4 mg tablets,dose pack 4 mg PO QDAY Qty: 21 0RF Ozempic 0.25 mg or 0.5 mg (2 mg/3 mL) pen injector 0.25 mg subcut QWEEK Qty: 3 0RF Rx Instructions: for 4 weeks Continued metformin 500 mg tablet 500 mg PO BID Patient Comments: TAKE 1 TABLET BY MOUTH TWICE A DAY WITH FOOD fluticasone propionate 44 mcg/actuation HFA aerosol inhaler 44 mcg INHALATION PRN PRN (Reason: sob) cholecalciferol (vitamin D3) 50 mcg (2,000 unit) capsule 50 mcg PO DAILY Patient Comments: TAKE 1 TABLET ORALLY EVERY DAY carvedilol 6.25 mg tablet 6.25 mg PO BID gemfibrozil 600 mg tablet 600 mg PO BID Patient Comments: TAKE 1 TABLET BY MOUTH TWICE A DAY 30 MINUTES BEFORE MORNING AND EVENING MEAL loratadine 10 mg tablet 10 mg PO QDAY Patient Comments: TAKE 1 TABLET BY MOUTH EVERY DAY (DME) CardLabe 3 Sensor Device See Rx Instructions .Route Qty: 1 0RF Rx Instructions: As directed furosemide [Lasix] 20 mg tablet 20 mg PO QAM Qty: 30 0RF Changed atorvastatin 20 mg tablet 20 mg PO HS 30 Days Qty: 0 0RF Patient Comments: TAKE 1 TABLET BY MOUTH EVERY DAY Discontinued olanzapine 10 mg tablet 10 mg PO HS Patient Comments: TAKE 1 TABLET BY MOUTH EVERY DAY IN THE EVENING Rybelsus 3 mg tablet 3 mg PO QDAY 30 Days Qty: 30 1RF Referrals: [facility] [Outside] No Primary/Family,Physician [Primary Care Provider] - Patient/Caregiver Discharge Instructions Education Materials: COPD: Chronic Coughing, Using Oxygen Safely, Using an Oxygen Tank at Home Print Language: Panamanian Stand Alone Forms: Domitila Award Info., Patient Portal Info Letter, Work/Release Restrictions Discharge Order Discharge Orders: Discharge (Routine); Ordered 05/31/25 Ordered By: Nicole Campbell Quality Discharge Quality Measures VTE prophylaxis MD Attestestation MD Attestation I have examined the patient, reviewed labs and imaging findings, discussed the case with the resident(s), and reviewed entered orders. I agree with the plan of care as outlined in this note. Time Spent: [address] Tammy MD
== END 2025-05-31 12:38 | disposition home or self-care (01) | DRG 140 ==
LOC: SERX 03:42 → SERHOLD 04:15 → S2NX 06:13 → S2SX 19:56 → S2NX 05-29 00:52 → S3SX 05-31 01:49
PROVIDERS: Student in an Organized Health Care Education/Training Program; Admitting Provider Internal Medicine; Emergency Provider Emergency Medicine; Visit Provider Internal Medicine
DX: J44.1 Chronic obstructive pulmonary disease with (acute) exacerbation (principal); F20.9 Schizophrenia, unspecified; E78.5 Hyperlipidemia, unspecified; I10 Essential (primary) hypertension; E66.2 Morbid (severe) obesity with alveolar hypoventilation; J44.0 Chronic obstructive pulmonary disease with (acute) lower respiratory infection; Z99.81 Dependence on supplemental oxygen; E11.65 Type 2 diabetes mellitus with hyperglycemia; G93.40 Encephalopathy, unspecified; I11.0 Hypertensive heart disease with heart failure; I25.2 Old myocardial infarction; J96.21 Acute and chronic respiratory failure with hypoxia; I50.32 Chronic diastolic (congestive) heart failure; J15.9 Unspecified bacterial pneumonia; J96.22 Acute and chronic respiratory failure with hypercapnia; E88.810 Metabolic syndrome; Z68.43 Body mass index [BMI] 50.0-59.9, adult; Z79.4 Long term (current) use of insulin; K76.0 Fatty (change of) liver, not elsewhere classified; Z79.84 Long term (current) use of oral hypoglycemic drugs; Z79.899 Other long term (current) drug therapy; Z87.891 Personal history of nicotine dependence; Z91.199 Patient's noncompliance with other medical treatment and regimen due to unspecified reason; M85.80 Other specified disorders of bone density and structure, unspecified site; J93.82 Other air leak; I31.39 Other pericardial effusion (noninflammatory); F45.8 Other somatoform disorders
CPT/HCPCS: 36415; 36600; 71045; 76999; 80048; 80053; 80061; 80307; 80320; 81001; 82248; 82803; 83605; 83735; 83880; 84100; 84484; 85025; 85379; 87040; 87081; 87400; 87811; 93005; 94640; 94660; 94762; 96365; 96375; 96376; 99285; A9270; J0456; J0696; J1650; J1815; J1938; J2470; J2919; J3475; J7050; G0480

== ENCOUNTER 2025-07-19 17:29 | Inpatient (IN) | payer MEDICAID, SELFPAY ==
[2025-07-19] VITALS (8 sets, daily range): BP systolic 141–186; BP diastolic 71–90; PULSE 77–101; RESP 14–28; TEMP 36.6; O2SAT 92–96
--- NOTE | 2025-07-19 17:50 | XR_ITS ---
Examination: AP chest single view Technique one AP portable upright chest single view Date and time: July 19, 2025, 192 hrs. Indications: Coughing shortness of breath today. Findings: Mild heart failure Moderate enlargement cardiac contour Prominent vascular congestion Opacity at the right base consistent with superimposed pneumonia Impression: Mild heart failure Superimposed pneumonia right base
--- NOTE | 2025-07-19 17:50 | EKG_ITS ---
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
--- NOTE | 2025-07-19 17:52 | EDNOTE_ITS ---
ED General RME/HPI General Chief complaint: Shortness of Breath/Dyspnea Stated complaint: SOB Time Seen by Provider: 07/19/25 17:49 Arrival date/time: 07/19/25 17:29 RME / HPI RME / HPI narrative: 44-year-old male patient with significant history of morbid obesity, OHS, BHAVESH on CPAP, non-insulin dependent type 2 diabetes mellitus, HTN, HLD, and schizophrenia was brought in by EMS for evaluation regarding shortness of breath. Patient was noted to be having worsening shortness of breath, was diagnosed with COVID about 4 days ago. Associated with worsening cough. Patient was also noted to be more drowsy than usual. Currently was noted to be satting 95% on nasal cannula at 6 L. No fever noted. Related Data Home Medications ?Medication ?Instructions ?Recorded ?Confirmed carvedilol 6.25 mg tablet 6.25 mg PO BID 02/15/2405/08 gemfibrozil 600 mg tablet 600 mg PO BID 02/15/2405/27 loratadine 10 mg tablet 10 mg PO QDAY 02/15/2405/27 cholecalciferol (vitamin D3) 50 50 mcg PO DAILY 05/27/25 mcg (2,000 unit) capsule fluticasone propionate 44 44 mcg inhalation PRN PRN so b 12/03/24 05/27/25 mcg/actuation HFA aerosol inhaler metformin 500 mg tablet 500 mg PO BID 12/03/2405/27 Previous Rx's ?Medication ?Instructions ?Recorded blood-glucose sensor (FreeStyle #1 ea 10/30/24 Caroline 3 Sensor device) furosemide 20 mg tablet (Lasix) 20 mg PO QAM #30 tabs 03/10/25 amoxicillin 875 mg-potassium 1 tab PO BID #8 tabs 05/08 03/31 clavulanate 125 mg tablet atorvastatin 20 mg tablet 20 mg PO HS 30 days #0 tabs 05/31/25 methylprednisolone 4 mg tablets in 4 mg PO QDAY #21 ta bs 05/31/25 a dose pack (Medrol (Juan F)) semaglutide 0.25 mg or 0.5 mg (2 0.25 mg (0.368 mL) patel bcut QWEEK #3 05/31/25 mg/3 mL) subcutaneous pen injector mL (Ozempic) Allergies Allergy/AdvReac Type Severity Reaction Status Date / Time No Known Allergies Allergy Unverified 02/16/24 08:13 Review of Systems Review of Systems Narrative Review of Systems: Review of system reviewed and within normal limits except mentioned in HPI ED Exam Narrative Physical exam: VITAL SIGNS: Reviewed. GENERAL APPEARANCE: Alert however drowsy,, follows commands, no acute distress, morbidly obese HEAD AND FACE: Non-traumatic. ENT: PERRL, pink conjunctivitis, eyelid no trauma, Mucous membrane moist. NECK: Supple, nontender, no nuchal rigidity. CHEST: No tenderness, no crepitus, no paradoxical movement, no retractions. LUNGS: Clear, well ventilated, symmetric, no rales, no wheezing, no ronchi, no stridor, good breath sounds bilaterally. HEART: Regular rate, regular rhythm, no murmur, no gallops. ABDOMEN: Soft, positive bowel sounds, nondistended, no guarding, nontender, no rebound, no masses, RECTAL: Deferred. GENITAL: Deferred. NEUROLOGICAL: Gross motor function intact sensory function intact, Appropriate for age. MUSCULOSKELETAL: low back nontender, full range of motion. EXTREMITIES: Nontender, full range of motion. SKIN: Color pink, dry, no rash, no lacerations, no abrasions, no contusions. LYMPHATICS: Deferred. Course Quality Measures none Orders Category Date Time Status Admit to Inpatient Status Routine Admission 07/19/25 22:03 Active Patient Condition Routine Admission 07/19/25 22:03 Ordered Bedside Blood Glucose AC Care 07/19/25 22:14 Active Bedside COVID-19 Antigen Test NOW Care 07/19/25 17:50 Active Bedside Influenza A&B Antigen Test NOW Care 07/19/25 17:51 Completed COVID-19 Screening Questionnaire NOW Care 07/19/25 21:43 Active Decision to Admit X1 Care 07/19/25 21:43 Completed EKG (ED ONLY) *Do not use* NOW Care 07/19/25 17:50 Completed Miscellaneous Nursing Order NOW Care 07/19/25 22:07 Active Notify provider NEEDED Care 07/19/25 22:03 Active Obtain weight daily Care 07/19/25 22:03 Active Strict Intake and Output Routine Care 07/19/25 22:03 Ordered Vital Signs, Non-Routine Q4H Care 07/19/25 22:15 Ordered EKG (ED Only) Stat Exams 07/19/25 17:50 Draft XR chest 1V Stat Exams 07/19/25 17:50 Completed A1C [Glycohemoglobin w (eAG)] AM DRAW Lab 07/20/25 05:00 Ordered Arterial Blood Gas Stat Lab 07/19/25 19:13 Completed B-Type Natriuretic Peptide Stat Lab 07/19/25 18:24 Completed Blood Culture (Lab) Stat Lab 07/19/25 18:24 Received C-Reactive Protein Stat Lab 07/19/25 18:24 Completed CBC AM DRAW Lab 07/20/25 05:00 Ordered CBC AM DRAW Lab 07/21/25 05:00 Ordered CBC AM DRAW Lab 07/22/25 05:00 Ordered CBC Stat Lab 07/19/25 18:24 Completed Comprehensive Metabolic Panel AM DRAW Lab 07/20/25 05:00 Ordered Comprehensive Metabolic Panel AM DRAW Lab 07/21/25 05:00 Ordered Comprehensive Metabolic Panel AM DRAW Lab 07/22/25 05:00 Ordered Comprehensive Metabolic Panel Stat Lab 07/19/25 18:24 Completed Lactate (Lactic Acid) Stat Lab 07/19/25 18:24 Completed Lipid Panel AM DRAW Lab 07/20/25 05:00 Ordered Magnesium AM DRAW Lab 07/20/25 05:00 Ordered Magnesium AM DRAW Lab 07/21/25 05:00 Ordered Magnesium AM DRAW Lab 07/22/25 05:00 Ordered Partial Thromboplastin Time AM DRAW Lab 07/20/25 05:00 Ordered Partial Thromboplastin Time Stat Lab 07/19/25 18:24 Completed Phosphorous AM DRAW Lab 07/20/25 05:00 Ordered Phosphorous AM DRAW Lab 07/21/25 05:00 Ordered Phosphorous AM DRAW Lab 07/22/25 05:00 Ordered Procalcitonin Stat Lab 07/19/25 18:24 Completed Prothrombin Time with INR AM DRAW Lab 07/20/25 05:00 Ordered TSH [Thyroid Stimulating Hormone] AM DRAW Lab 07/20/25 05:00 Ordered Troponin I Stat Lab 07/19/25 18:24 Completed ALBUTEROL RT 3ml [Proventil Rt 3ml] Med 07/19/25 22:07 Discontinued 2.5 mg INH X1 ONE Acetaminophen Tab [Tylenol Tab] Med 07/19/25 22:02 Active 650 mg PO Q6H PRN Albuterol/Ipratr Rt Katarina [Duoneb Rt Katarina] Med 07/19/25 23:00 Active 3 ml INH Q4HRRT Atorvastatin Calcium [Lipitor] Med 07/20/25 21:00 Active 20 mg PO HS Azithromycin Inj [Zithromax Inj] 500 mg Med 07/19/25 20:29 Discontinued Sodium Chloride 0.9% 250 ml [Ns] 250 ml IV X1 Dexamethasone Inj [Decadron Inj] Med 07/19/25 22:10 Active 4 mg IVP QDAY Dextrose 50% Syr [D50w Syringe Abboject] Med 07/19/25 22:14 Active 25 ml IV Q15MIN PRN Dextrose 50% Syr [D50w Syringe Abboject] Med 07/19/25 22:14 Active 50 ml IV Q15MIN PRN Enoxaparin [Lovenox] Med 07/20/25 09:00 Active 40 mg SC QDAY Furosemide Inj [Lasix Inj] Med 07/19/25 22:14 Discontinued 40 mg IVP X1 ONE Glucagon Inj Med 07/19/25 22:14 Active 1 mg IM Q15MIN PRN HYDROcodone*/APAP 5/325 [[place] 5/325] Med 07/19/25 22:02 Active 1 tab PO Q4HR PRN INSULIN LISPRO (AdmeLOG) [HumaLOG] Med 07/20/25 07:30 Active See Protocol SC AC Ondansetron Inj [Zofran Inj] Med 07/19/25 22:02 Active 4 mg IVP Q6H PRN Pantoprazole Inj [Protonix Inj] Med 07/20/25 09:00 Active 40 mg IVP QDAY Remdesivir Inj [Veklury Inj] 100 mg Med 07/20/25 14:00 Active Sodium Chloride 0.9% [Ns] 100 ml IV Q24H Remdesivir Inj [Veklury Inj] 200 mg Med 07/19/25 22:12 Active Sodium Chloride 0.9% 250 ml [Ns] 250 ml IV X1 cefTRIAXone/D5w 1gm IV premix [Rocephin/D5w 1gm IV Med 07/19/25 20:28 Discontinued premix] 1 gm in 50 ml IV X1 Code Status Routine Oth 07/19/25 22:02 Ordered BiPAP / CPAP NEEDED RT 07/19/25 17:51 Active BiPAP / CPAP HS RT 07/19/25 22:02 Active Vital Signs Vital signs: Vital Signs Temperature 97.8 F 07/19/25 17:30 Pulse Rate 82 07/19/25 17:30 Respiratory Rate 24 H 07/19/25 17:30 Blood Pressure 148/71 H 07/19/25 17:30 Pulse Oximetry (%) 95 07/19/25 17:30 Oxygen Delivery Method Nasal Cannula 07/19/25 17:30 Oxygen Flow Rate 6 07/19/25 17:30 Discharge Plan Plan Patient Disposition: Admit Acute Care w/in Hospital Discharge Disposition comment: Guarded Prescriptions/Referrals Prescriptions/Med Rec: No Action metformin 500 mg tablet 500 mg PO BID Patient Comments: TAKE 1 TABLET BY MOUTH TWICE A DAY WITH FOOD fluticasone propionate 44 mcg/actuation HFA aerosol inhaler 44 mcg INHALATION PRN PRN (Reason: sob) cholecalciferol (vitamin D3) 50 mcg (2,000 unit) capsule 50 mcg PO DAILY Patient Comments: TAKE 1 TABLET ORALLY EVERY DAY carvedilol 6.25 mg tablet 6.25 mg PO BID gemfibrozil 600 mg tablet 600 mg PO BID Patient Comments: TAKE 1 TABLET BY MOUTH TWICE A DAY 30 MINUTES BEFORE MORNING AND EVENING MEAL loratadine 10 mg tablet 10 mg PO QDAY Patient Comments: TAKE 1 TABLET BY MOUTH EVERY DAY (DME) [employer] Caroline 3 Sensor Device See Rx Instructions .Route Qty: 1 0RF Rx Instructions: As directed furosemide [Lasix] 20 mg tablet 20 mg PO QAM Qty: 30 0RF atorvastatin 20 mg tablet 20 mg PO HS 30 Days Qty: 0 0RF Patient Comments: TAKE 1 TABLET BY MOUTH EVERY DAY amoxicillin-pot clavulanate 875-125 mg tablet 1 tab PO BID Qty: 8 0RF methylprednisolone [Medrol (Juan F)] 4 mg tablets,dose pack 4 mg PO QDAY Qty: 21 0RF Ozempic 0.25 mg or 0.5 mg (2 mg/3 mL) pen injector 0.25 mg subcut QWEEK Qty: 3 0RF Rx Instructions: for 4 weeks Referrals: No Primary/Family,Physician [Primary Care Provider] - In 1 week Problem List Clinical Impression: Acute respiratory failure with hypoxia and hypercapnia, Pneumonia due to COVID- 19 virus Patient/Caregiver Discharge Instructions Print Language: Tunisian Stand Alone Forms: Domitila Award Info., Patient Portal Info Letter MDM Narrative MDM hospital course: 44-year-old male patient with significant history of morbid obesity, OHS, BHAVESH on CPAP, non-insulin dependent type 2 diabetes mellitus, HTN, HLD, and schizophrenia was brought in by EMS for evaluation regarding shortness of breath. Patient was noted to be having worsening shortness of breath, was diagnosed with COVID about 4 days ago. Associated with worsening cough. Patient was also noted to be more drowsy than usual. Currently was noted to be satting 95% on nasal cannula at 6 L. No fever noted. Chest x-ray showed Mild heart failure ,Superimposed pneumonia right bas Patient is laboratory workup came back with slight leukocytosis 11.5 ABG slightly elevated pCO2 ABG slight elevated bicarb. pH is normal. CMP unremarkable. EKG showed sinus rhythm, ventricular rate of 78 bpm, no ST segment elevation or depression noted. Patient was noted to be satting 86% on 6 L nasal cannula, I placed the patient on BiPAP and now satting 93%. Patient was given IV ceftriaxone, IV Zithromax for pneumonia. Spoke with hospitalist, who admitted the patient . Medication Administration(s) Medication Administration History Acetaminophen (Acetaminophen 325 Mg Tablet) 650 mg PO Q6H PRN PRN Reason: Fever >100 or pain 1-3 Stop: 08/18/25 22:01 Hydrocodone Bitart/Acetaminophen (Hydrocodone/Apap 5/325 Tablet) 1 tab PO Q4HR PRN PRN Reason: PAIN SCALE 4-6 (Moderate Stop: 07/24/25 22:01 Albuterol/Ipratropium (Albuterol/Ipratropium (Duoneb) Rt Katarina 3 Ml Nebu) 3 ml INH Q4HRRT [facility] Stop: 08/18/25 22:59 Last Admin: 07/19/25 22:41 Dose: 3 ml Documented By: OCHOA Atorvastatin Calcium (Atorvastatin Calcium 10 Mg Tablet) 20 mg PO HS JEANNE Stop: 08/19/25 20:59 Dexamethasone Sodium Phosphate (Dexamethasone Sod Phos Inj 4 Mg/Ml Vial) 4 mg IVP QDAY [facility]; Protocol Stop: 08/27/25 22:09 Last Admin: 07/19/25 22:25 Dose: 4 mg Documented By: SHARAN Dextrose (Dextrose 50%-Water Inj 50 Ml Syringe) 25 ml IV Q15MIN PRN PRN Reason: BG 50-70 responsive npo pt Stop: 08/18/25 22:13 Dextrose (Dextrose 50%-Water Inj 50 Ml Syringe) 50 ml IV Q15MIN PRN PRN Reason: BG <50 OR BG <70 & pt unresponsive Stop: 08/18/25 22:13 Enoxaparin Sodium (Enoxaparin Sod Inj 40 Mg/0.4 Ml Syringe) 40 mg SC QDAY JEANNE Stop: 08/03/25 08:59 Glucagon (Glucagon Inj 1 Mg Vial) 1 mg IM Q15MIN PRN PRN Reason: BG <70, and no IV access Remdesivir 100 mg/ Sodium (Chloride) 100 mls @ 100 mls/hr IV Q24H NR; Protocol Stop: 07/21/25 14:59 Remdesivir 200 mg/ Sodium (Chloride) 250 mls @ 250 mls/hr IV X1 ONE; Protocol Stop: 07/19/25 23:11 Insulin Human Lispro (Insulin Lispro (Admelog) 1 Unit/0.01 Ml Unit) 0 unit SC [facility]; Protocol Stop: 08/19/25 07:29 Ondansetron HCl (Ondansetron Inj 2 Mg/Ml Inj 2 Ml) 4 mg IVP Q6H PRN; Protocol PRN Reason: NAUSEA OR VOMITING Stop: 08/18/25 22:01 Pantoprazole Sodium (Pantoprazole Inj 40 Mg Vial) 40 mg IVP QDAY JEANNE Stop: 08/19/25 08:59 Discontinued Medications Albuterol (Albuterol Rt 2.5 Mg/3 Ml Nebu) 2.5 mg INH X1 ONE Stop: 07/19/25 22:08 Last Admin: 07/19/25 22:41 Dose: Not Given Documented By: OCHOA Non-Admin Reason: Duplicate Medication on eMAR Furosemide (Furosemide Inj 10 Mg/Ml 4ml Vial) 40 mg IVP X1 ONE Stop: 07/19/25 22:15 Last Admin: 07/19/25 22:24 Dose: 40 mg Documented By: SHARAN Ceftriaxone Sodium/Dextrose (Rocephin/D5w 1gm Iv Premix) 1 gm in 50 mls @ 100 mls/hr IV X1 ONE Stop: 07/19/25 20:57 Last Infusion: 07/19/25 21:11 Dose: Infused Documented By: Admin: 07/19/25 20:41 Dose: 100 mls/hr Documented By: SHARAN Azithromycin 500 mg/ Sodium (Chloride) 250 mls @ 250 mls/hr IV X1 ONE Stop: 07/19/25 21:28 Last Admin: 07/19/25 20:58 Dose: 250 mls/hr Documented By: SHARAN Diagnosis Differential diagnosis: COVID, COVID-pneumonia, hypoxia, obstructive sleep apnea, Most likely dx, and/or detailed dx discussion: COVID-pneumonia, acute respiratory failure with hypercapnia and hypoxia Dispositon Disposition: Admit
[2025-07-19 18:39] LABS: Lactate (Lactic Acid) 1.7 mMol/L (0.4-2.0)
[2025-07-19 18:48] LABS: Basophils # (Auto) 0.1 Thou/mm3 (0.0-0.2); Basophils % (Auto) 1 % (0-2.5); Eosinophils # (Auto) 0.2 Thou/mm3 (0.0-0.5); Eosinophils % (Auto) 2 % (0-10); Hematocrit 43.2 % (41.0-53.0); Hemoglobin 13.8 g/dL (13.5-16.0); Immature Granulocytes Auto 0.19 Thou/mm3 (0.00-0.00); Lymphocytes # (Auto) 1.9 Thou/mm3 (1.0-4.8); Lymphocytes % (Auto) 17 % (10-50); Mean Corpuscular HGB Conc 31.9 g/dl (31.0-37.0); Mean Corpuscular Hemoglobin 28.0 pg (25.0-35.0); Mean Corpuscular Volume 88 fL (80-100); Monocytes # (Auto) 0.7 Thou/mm3 (0.0-0.8); Monocytes % (Auto) 6 % (0-12); Neutrophils # (Auto) 8.4 Thou/mm3 (1.8-7.7); Neutrophils % (Auto) 74 % (37-80); Nucleated Red Blood Cell # 0.00 Thou/mm3 (0.00-0.00); Nucleated Red Blood Cell % 0 /100 WBC (0); Platelet Count 181 Thou/mm3 (140-440); RDW Standard Deviation 52.4 fL (35.1-43.9); Red Blood Count 4.92 Miln/mm3 (4.50-5.90); White Blood Count 11.5 Thou/mm3 (3.8-10.6)
[2025-07-19 18:59] LABS: Partial Thromboplastin Time 26.0 Seconds (22.0-36.0)
[2025-07-19 19:24] LABS: Base Excess 3 (-3-3); HCO3 30 mEq/L (20-26); Inspired Oxygen, FIO2 35 %; O2 Saturation 98 % (91-98); PCO2 53 mmHg (32.0-48.0); PO2 97 mmHg (83-108); pH, Arterial 7.35 (7.35-7.45)
[2025-07-19 19:27] LABS: Alanine Aminotransferase 50 U/L (10-49); Albumin, Serum 4.0 gm/dL (3.5-5.0); Albumin/Globulin Ratio 1.5 (1.2-2.2); Alkaline Phosphatase 92 U/L (46-116); Anion Gap 9 (7-16); Aspartate Amino Transferase 20 U/L (0-34); BUN/Creatinine Ratio 11 Ratio (12-20); Bilirubin,Total 0.3 mg/dL (0.3-1.2); Blood Urea Nitrogen 9 mg/dL (9-23); C-Reactive Protein < 0.5 mg/dL (0.0-0.9); Calcium 8.7 mg/dL (8.3-10.6); Calcium (Corrected) 8.7 mg/dL (8.5-10.1); Carbon Dioxide 28.0 mMol/L (20.0-31.0); Chloride 102 mMol/L (98-107); Creatinine (Component) 0.8 mg/dL (0.6-1.3); Globulin 2.7 gm/dL (2.3-3.5); Glucose 193 mg/dL (74-106); Osmolality,Calculated 281 (275-295); Potassium 3.7 mMol/L (3.4-5.1); Procalcitonin 0.06 ng/ml (0.0-0.49); Sodium 139 mMol/L (136-145); Total Protein 6.7 gm/dL (5.7-8.2); Troponin I < 0.002 ng/mL (0.0-0.045); eGFR > 60 See Note
[2025-07-19 19:36] LABS: Allen Test Performed/OK; Puncture Site Right Radial
[2025-07-19 19:50] LABS: B-Type Natriuretic Peptide < 20 pg/mL (0-100)
[2025-07-19] MEDS: cefTRIAXone/D5w 1gm IV premix 1 GM/50 ML BAG IV (20:41)
[2025-07-19] MEDS: AZITHROMYCIN INJ 500 MG in SODIUM CHLORIDE 0.9% 250 ML 250 ML 250 MG IV (20:58)
--- NOTE | 2025-07-19 22:15 | ESHP_ITS ---
<Statement entered by David Cote MD - 07/20/25 12:17> I have discussed and was present for the essential components of the history, physical examination, diagnosis, and treatment plan with the resident. I agree with the patient's care as documented by the resident and amended herein by me. David Cote MD FACP. Documentation for date of: 07/19/25 HPI History of Present Illness History of present illness: HPI is limited at this time due to patient being on BiPAP Zay Reyes is a 44-year-old male with a PMH of morbid obesity, schizophrenia, hypertension, T2DM, BHAVESH on CPAP, and obesity hypoventilation syndrome on 2 L baseline of O2 who was BIBA for evaluation of shortness of breath. There is reported that patient tested positive for COVID 4 days ago, and had been given some medicines including steroids, however patient came to the ED for further evaluation as his symptoms worsen. He is currently on the BiPAP at this time and is unable to provide history at this time. Of note, patient was recently admitted in May for similar symptoms and had attempted pleural drainage, however there was no fluid to drain at the time. ED Course: Patient came into the ED with a temperature of 97.8, heart rate 82, respiratory rate 29, blood pressure 148/71, saturating 95% on 6 L nasal cannula. Patient was worked up was found to have a white count of 11.5, hemoglobin 14, ABG pH of 7.35, pCO2 of 53, bicarb of 30, sodium 139, potassium of 3.7, chloride 102, serum bicarb of 28, creatinine 0.8, glucose 193, lactate 1.7, calcium 8.7, ALT 50, troponin negative x 1, BNP negative, procalcitonin 0.06. EKG was done which showed sinus rhythm, heart rate 78, QTc of 397. EKG was done which showed mild vascular congestion, suspicious for right base pneumonia. Review of Systems Review of Systems Narrative Review of Systems: 12 point ROS was reviewed and otherwise negative less stated directly in the HPI Exam Vital Signs Temp Pulse Resp BP Pulse Ox O2 Del Method O2 Flow Rate 98 F 97 18 158/84 H 96 BiPAP 6 07/19/25 20:22 07/19/25 20:22 07/19/25 19:13 07/19/25 20:43 07/19/25 20:22 07/19/25 20:22 07/19/25 17:30 FiO2 35 07/19/25 19:13 Narrative Exam General: AAOx3, in mild distress, obese HEENT: Eyes closed at this time Cardiovascular: S1, S2, radial pulses +2 bilat, RRR Pulmonary: Currently on BiPAP, tachypneic, overbreathing BiPAP, wheezing heard GI: No tenderness to light or deep palpitation, no guarding, rigidity, rebound tenderness or distension Extremities: Trace edema in lower extremities bilaterally, dorsalis pedis pulses +2 bilaterally Neuro: AAOx3, limited neuroexam Results: Labs 07/19/25 18:24 07/19/25 18:24 Labs: Short CBC 07/19/25 Range/Units 18:24 WBC 11.5 H (3.8-10.6) Thou/mm3 Hgb 13.8 (13.5-16.0) g/dL Hct 43.2 (41.0-53.0) % Plt Count 181 (140-440) Thou/mm3 BMP 07/19/25 18:24 Sodium 139 Potassium 3.7 Chloride 102 Carbon Dioxide 28.0 BUN 9 Creatinine 0.8 Glucose 193 H Calcium 8.7 Cardiac Enzymes 07/19/25 Range/Units 18:24 Troponin I < 0.002 (0.0-0.045) ng/mL Liver Function 07/19/25 Range/Units 18:24 Total Bilirubin 0.3 (0.3-1.2) mg/dL AST 20 (0-34) U/L ALT 50 H (10-49) U/L Alkaline Phosphatase 92 (46-116) U/L Albumin 4.0 (3.5-5.0) gm/dL ABG Interpretation ABG results: 07/19/25 19:13 ABG pH 7.35 ABG pCO2 53 H ABG pO2 97 ABG HCO3 30 H ABG O2 Saturation 98 ABG Base Excess 3 Quality Measures Quality Measures VTE prophylaxis Medications Home Medications and Allergies Home Medications ?Medication ?Instructions ?Recorded ?Confirmed ?Type carvedilol 6.25 mg tablet 6.25 mg PO BID 02/15/24 07/12/01 History gemfibrozil 600 mg tablet 600 mg PO BID 02/15/2405/27 History loratadine 10 mg tablet 10 mg PO QDAY 02/15/2405/27 History cholecalciferol (vitamin D3) 50 50 mcg PO DAILY 05/27/25 History mcg (2,000 unit) capsule fluticasone propionate 44 44 mcg inhalation PRN PRN so b 12/03/24 05/27/25 History mcg/actuation HFA aerosol inhaler metformin 500 mg tablet 500 mg PO BID 12/03/2405/27 History Allergies Allergy/AdvReac Type Severity Reaction Status Date / Time No Known Allergies Allergy Unverified 02/16/24 08:13 Visit Medications Acetaminophen (Acetaminophen 325 Mg Tablet) 650 mg PO Q6H PRN PRN Reason: Fever >100 or pain 1-3 Stop: 08/18/25 22:01 Hydrocodone Bitart/Acetaminophen (Hydrocodone/Apap 5/325 Tablet) 1 tab PO Q4HR PRN PRN Reason: PAIN SCALE 4-6 (Moderate Stop: 07/24/25 22:01 Albuterol (Albuterol Rt 2.5 Mg/3 Ml Nebu) 2.5 mg INH X1 ONE Stop: 07/19/25 22:08 Albuterol/Ipratropium (Albuterol/Ipratropium (Duoneb) Rt Katarina 3 Ml Nebu) 3 ml INH Q4HRRT JEANNE Stop: 08/18/25 22:59 Atorvastatin Calcium (Atorvastatin Calcium 10 Mg Tablet) 20 mg PO HS JEANNE Stop: 08/19/25 20:59 Dexamethasone Sodium Phosphate (Dexamethasone Sod Phos Inj 4 Mg/Ml Vial) 4 mg IVP QDAY JEANNE; Protocol Stop: 08/27/25 22:09 Enoxaparin Sodium (Enoxaparin Sod Inj 40 Mg/0.4 Ml Syringe) 40 mg SC QDAY JEANNE Stop: 08/03/25 08:59 Furosemide (Furosemide Inj 10 Mg/Ml 4ml Vial) 40 mg IVP X1 ONE Stop: 07/19/25 22:15 Remdesivir 100 mg/ Sodium (Chloride) 100 mls @ 100 mls/hr IV Q24H NR; Protocol Stop: 07/21/25 14:59 Remdesivir 200 mg/ Sodium (Chloride) 250 mls @ 250 mls/hr IV X1 ONE; Protocol Stop: 07/19/25 23:11 Ondansetron HCl (Ondansetron Inj 2 Mg/Ml Inj 2 Ml) 4 mg IVP Q6H PRN; Protocol PRN Reason: NAUSEA OR VOMITING Stop: 08/18/25 22:01 Pantoprazole Sodium (Pantoprazole Inj 40 Mg Vial) 40 mg IVP QDAY JEANNE Stop: 08/19/25 08:59 Discontinued Medications Ceftriaxone Sodium/Dextrose (Rocephin/D5w 1gm Iv Premix) 1 gm in 50 mls @ 100 mls/hr IV X1 ONE Stop: 07/19/25 20:57 Last Infusion: 07/19/25 21:11 Dose: Infused Azithromycin 500 mg/ Sodium (Chloride) 250 mls @ 250 mls/hr IV X1 ONE Stop: 07/19/25 21:28 Last Admin: 07/19/25 20:58 Dose: 250 mls/hr Assessment & Plan Plan Assessment Zay Reyes is a 44-year-old male with a PMH of morbid obesity, schizophrenia, hypertension, T2DM, BHAVESH on CPAP, and obesity hypoventilation syndrome on 2 L baseline of O2 who is currently admitted for acute on chronic hypercarbic respiratory failure and COVID pneumonia. #Acute on chronic hypercarbic respiratory failure #COVID-pneumonia #OHS #Chronic respiratory acidosis with appropriate renal compensation Patient currently on BiPAP at this time, and tachypneic with respiratory rate ~30 If patient does not improve with BiPAP, patient may need to be intubated Patient's risk factors for worsening respiratory status with COVID-pneumonia include diabetes and morbid obesity Will initiate COVID-pneumonia treatment with steroids and antiviral Will hold on superimposed bacterial treatment at this time Will also give additional diuretic for concern with heart failure, however previous echo does show preserved ejection fraction ABG does show pH of 7.35 with bicarb of 30 With chronic respiratory acidosis, we would expect the bicarb to elevate around 4 points for his level of CO2 which is where it is at the level of 30 Plan: ? Decadron 4 mg IV for 10 days (07/19- ? Remedsivir IV 200 mg loading and then 100 mg for four days ? DuoNeb every 4 hours ? Lasix 40 mg IV x 1 ? BiPAP at night #Hypertensive emergency, improving Plan: ? Do not correct systolic blood pressure more than 25% within the first 24 hours #Hyperlipidemia Chronic Plan: ? Resumed home Lipitor 20 mg at bedtime #History of schizophrenia Patient is on home Abilify Plan: ? Resumed home Abilify #[id number] type 2 diabetes mellitus A1c 6.8 in February Plan: ? Sliding scale insulin ? Hypoglycemic protocol in place ? Blood sugar checks with meals #Health Maintenance Disposition: Telemetry DVT prophylaxis: Lovenox GI prophylaxis: Protonix Diet: N.p.o. CODE STATUS: Full Patient seen and care discussed with my attending physician, Dr. Rocael Payne, PGY-2
[2025-07-19] MEDS: FUROSEMIDE INJ 10 MG/ML 4ML VIAL 40 MG IVP (22:24)
[2025-07-19] MEDS: DEXAMETHASONE SOD PHOS INJ 4 MG/ML VIAL IVP (22:25)
--- NOTE | 2025-07-19 22:32 | PC.NURSE ---
per CN Troy , RN unable to administer remdesivir due to medication not available at night
[2025-07-19] MEDS: ALBUTEROL/IPRATROPIUM (Duoneb) RT SOL 3 ML NEBU INH (22:41)
[2025-07-20] VITALS (18 sets, daily range): BP systolic 130–160; BP diastolic 74–116; PULSE 67–116; RESP 14–30; TEMP 36–36.9; O2SAT 89–99; BMI 53.1
[2025-07-20] MEDS: ALBUTEROL/IPRATROPIUM (Duoneb) RT SOL 3 ML NEBU INH ×6 (02:06→22:37)
[2025-07-20] MEDS: KETOROLAC INJ 30 MG/ML VIAL IVP (02:41)
[2025-07-20 05:43] LABS: Basophils # (Auto) 0.1 Thou/mm3 (0.0-0.2); Basophils % (Auto) 0 % (0-2.5); Eosinophils # (Auto) 0.0 Thou/mm3 (0.0-0.5); Eosinophils % (Auto) 0 % (0-10); Hematocrit 49.4 % (41.0-53.0); Hemoglobin 15.6 g/dL (13.5-16.0); Immature Granulocytes Auto 0.40 Thou/mm3 (0.00-0.00); Lymphocytes # (Auto) 1.2 Thou/mm3 (1.0-4.8); Lymphocytes % (Auto) 9 % (10-50); Mean Corpuscular HGB Conc 31.6 g/dl (31.0-37.0); Mean Corpuscular Hemoglobin 28.5 pg (25.0-35.0); Mean Corpuscular Volume 90 fL (80-100); Monocytes # (Auto) 0.4 Thou/mm3 (0.0-0.8); Monocytes % (Auto) 3 % (0-12); Neutrophils # (Auto) 10.8 Thou/mm3 (1.8-7.7); Neutrophils % (Auto) 84 % (37-80); Nucleated Red Blood Cell # 0.00 Thou/mm3 (0.00-0.00); Nucleated Red Blood Cell % 0 /100 WBC (0); Platelet Count 212 Thou/mm3 (140-440); RDW Standard Deviation 54.8 fL (35.1-43.9); Red Blood Count 5.47 Miln/mm3 (4.50-5.90); White Blood Count 12.8 Thou/mm3 (3.8-10.6)
[2025-07-20 05:59] LABS: INR 1.1 (0.9-1.3); Partial Thromboplastin Time 26.9 Seconds (22.0-36.0); Prothrombin Time 11.5 Seconds (9.0-12.2)
[2025-07-20 06:02] LABS: Glucose Estimated Average 143 mg/dL (80-131); Hemoglobin A1C 6.6 % Hgb (4.8-6.0)
[2025-07-20 06:22] LABS: Alanine Aminotransferase 55 U/L (10-49); Albumin, Serum 4.5 gm/dL (3.5-5.0); Albumin/Globulin Ratio 1.5 (1.2-2.2); Alkaline Phosphatase 88 U/L (46-116); Anion Gap 11 (7-16); Aspartate Amino Transferase 22 U/L (0-34); BUN/Creatinine Ratio 11 Ratio (12-20); Bilirubin,Total 0.4 mg/dL (0.3-1.2); Blood Urea Nitrogen 9 mg/dL (9-23); Calcium 8.9 mg/dL (8.3-10.6); Calcium (Corrected) 8.9 mg/dL (8.5-10.1); Carbon Dioxide 28.8 mMol/L (20.0-31.0); Cardiac Risk Estimate 2.8 RATIO (4.0-6.7); Chloride 101 mMol/L (98-107); Cholesterol 151 mg/dL (132-200); Creatinine (Component) 0.8 mg/dL (0.6-1.3); Estimated Creatinine Clearance 168.6 mL/min (>60); Globulin 3.0 gm/dL (2.3-3.5); Glucose 137 mg/dL (74-106); HDL Cholesterol 54 mg/dL (40-60); LDL Cholesterol,Calculated 80 mg/dL (0-130); Magnesium 2.2 mg/dL (1.6-2.6); Osmolality,Calculated 281 (275-295); Phosphorous 3.8 mg/dL (2.4-5.1); Potassium 4.1 mMol/L (3.4-5.1); Sodium 141 mMol/L (136-145); Thyroid Stimulating Hormone 0.74 uIU/mL (0.55-4.78); Total Protein 7.5 gm/dL (5.7-8.2); Triglycerides 87 mg/dL (30-150); eGFR > 60 See Note
--- NOTE | 2025-07-20 07:47 | ESPR_ITS ---
<Statement entered by Leticia Du MD - 07/20/25 14:16> Patient seen and examined at bedside. No acute overnight events reported. Patient is a 44 y.o male with multiple comorbidities here for AHHRF 2/2 COVID PNA. Patient is currently on IV Steroids and pending COVID-PCR and cocci serologies. Bedside COVID-19 test was negative, and contact precautions removed. Patient will be on his home psych medications, BIPAP HS, and Lasix daily. Anticipate discharge in 24 to 48 hours. I discussed with and supervised the real estate intern physician who took care of this patient. I personally saw and examined the patient and discussed the assessment and plan with the entire medicine team, including my attending Dr. Nova, I agree with most of the assessment and plan as documented below Leticia Du M.D. PGY-3 Documentation for date of: 07/20/25 Subjective Subjective Interval history: Zay Reyes is a 44-year-old male with a PMH of morbid obesity, schizophrenia, hypertension, T2DM, BHAVESH on CPAP, and obesity hypoventilation syndrome on 2 L baseline of O2 who was BIBA for evaluation of shortness of breath. There is reported that patient tested positive for COVID 4 days ago, and had been given some medicines including steroids, however patient came to the ED for further evaluation as his symptoms worsen. He is currently on the BiPAP at this time and is unable to provide history at this time. Of note, patient was recently admitted in May for similar symptoms and had attempted pleural drainage, however there was no fluid to drain at the time. ED Course: Patient came into the ED with a temperature of 97.8, heart rate 82, respiratory rate 29, blood pressure 148/71, saturating 95% on 6 L nasal cannula. Patient was worked up was found to have a white count of 11.5, hemoglobin 14, ABG pH of 7.35, pCO2 of 53, bicarb of 30, sodium 139, potassium of 3.7, chloride 102, serum bicarb of 28, creatinine 0.8, glucose 193, lactate 1.7, calcium 8.7, ALT 50, troponin negative x 1, BNP negative, procalcitonin 0.06. EKG was done which showed sinus rhythm, heart rate 78, QTc of 397. EKG was done which showed mild vascular congestion, suspicious for right base pneumonia. 07/20/2025: Patient seen and examined while in telemetry. Patient not currently wearing BiPAP as patient is eating breakfast comfortably with nasal cannula in place satting 94% on 5 L. Patient continues on Decadron 6 mg IV Lasix 40 daily, he is pending COVID PCR. No new concerns. WBC 12 from 11, patient remains afebrile, COVID PCR positive, pending cocci serolgies. Exam Vital Signs Temp Pulse Resp BP Pulse Ox O2 Del Method O2 Flow Rate 98.5 F 79 21 H 160/99 H 97 BiPAP 6 07/20/25 04:00 07/20/25 06:53 07/20/25 06:53 07/20/25 04:00 07/20/25 06:53 07/20/25 04:00 07/19/25 17:30 FiO2 35 07/20/25 06:53 Narrative Exam GENERAL: no acute distress, comfortably laying in bed HEENT: Head AT/ NC. Mucous membranes moist. PERRL. CARDIOVASCULAR: RRR. Normal S1/S2, No m/r/g. Trace edema of bilateral LEs. RESPIRATORY: CTAB. No wheezing, rhonchi, crackles. (exam limited by habitus) GASTROINTESTINAL: Abdomen soft, non tender no palpable masses. Bowel sounds present MUSCULOSKELETAL:? No cyanosis or edema, no visible joint swelling. feet are restlessly moving on exam NEUROLOGICAL: CN II-XII grossly intact. No focal deficits. Sensation intact, symmetric. PSYCHIATRIC: Awake and alert, not agitated, normal mood and affect. SKIN: No obvious rashes, no jaundice, normal turgor. Objective Labs 07/20/25 04:59 07/20/25 04:59 Labs: Laboratory Results - last 24 hr 07/19/25 07/19/25 07/20/25 18:24 19:13 04:59 WBC 11.5 H 12.8 H RBC 4.92 5.47 Hgb 13.8 15.6 Hct 43.2 49.4 MCV 88 90 MCH 28.0 28.5 MCHC 31.9 31.6 RDW Std Deviation 52.4 H 54.8 H Plt Count 181 212 D Neut % (Auto) 74 84 H Lymph % (Auto) 17 9 L [place] % (Auto) 6 3 Eos % (Auto) 2 0 Baso % (Auto) 1 0 Neut # (Auto) 8.4 H 10.8 H Lymph # (Auto) 1.9 1.2 [place] # (Auto) 0.7 0.4 Eos # (Auto) 0.2 0.0 Baso # (Auto) 0.1 0.1 Immature Gran # (Auto) 0.19 H 0.40 H Absolute Nucleated RBC 0.00 0.00 Immature Gran % 2 H 3 H Nucleated RBC % 0 0 PT 11.5 INR 1.1 APTT 26.0 26.9 Puncture Site Right Radial ABG pH 7.35 ABG pCO2 53 H ABG pO2 97 ABG HCO3 30 H ABG O2 Saturation 98 ABG Base Excess 3 FiO2 35 Sodium 139 141 Potassium 3.7 4.1 Chloride 102 101 Carbon Dioxide 28.0 28.8 Anion Gap 9 11 BUN 9 9 Creatinine 0.8 0.8 Estim Creat Clear Calc Not Performed. 168.6 eGFR > 60 > 60 BUN/Creatinine Ratio 11 L 11 L Glucose [address] Glu mg/dL 143 H Hemoglobin A1c 6.6 H Calculated Osmolality 281 281 Lactic Acid 1.7 Calcium 8.7 8.9 Corrected Calcium 8.7 8.9 Phosphorus 3.8 Magnesium 2.2 Total Bilirubin 0.3 0.4 AST 20 22 ALT 50 H 55 H Alkaline Phosphatase 92 88 Troponin I < 0.002 C-Reactive Prot, Quant < 0.5 B-Natriuretic Peptide < 20 Total Protein 6.7 7.5 Albumin 4.0 4.5 D Globulin 2.7 3.0 Albumin/Globulin Ratio 1.5 1.5 Triglycerides 87 Cholesterol 151 LDL Cholesterol, Calc 80 HDL Cholesterol 54 Cholesterol/HDL Ratio 2.8 L Procalcitonin 0.06 TSH 0.74 ABG Interpretation ABG results: 07/19/25 19:13 ABG pH 7.35 ABG pCO2 53 H ABG pO2 97 ABG HCO3 30 H ABG O2 Saturation 98 ABG Base Excess 3 Quality Measures Quality Measures VTE prophylaxis Assessment & Plan Assessment Current Active Medications: Generic Name Dose Route Start Last Admin Trade Name Freq PRN Reason Stop Dose Admin Acetaminophen 650 mg 07/19/25 22:02 Acetaminophen 325 Mg Tablet PO 08/18/25 22:01 Q6H PRN Fever >100 or pain 1-3 Hydrocodone Bitart/Acetaminophen 1 tab 07/19/25 22:02 Hydrocodone/Apap 5/325 Tablet PO 07/24/25 22:01 Q4HR PRN PAIN SCALE 4-6 (Moderate Albuterol/Ipratropium 3 ml 07/19/25 23:00 07/20/25 06:53 Albuterol/Ipratropium (Duoneb) Rt Katarina 3 Ml Nebu INH 08/18/25 22:59 3 ml Q4HRRT JEANNE Administration Aripiprazole 4 mg 07/20/25 09:00 Aripiprazole 5 Mg Tablet PO 08/19/25 08:59 QDAY JEANNE Atorvastatin Calcium 20 mg 07/20/25 21:00 Atorvastatin Calcium 10 Mg Tablet PO 08/19/25 20:59 HS JEANNE Dexamethasone Sodium Phosphate 4 mg 07/19/25 22:10 07/19/25 22:25 Dexamethasone Sod Phos Inj 4 Mg/Ml Vial IVP 08/27/25 22:09 4 mg QDAY JEANNE Administration Protocol Dextrose 25 ml 07/19/25 22:14 Dextrose 50%-Water Inj 50 Ml Syringe IV 08/18/25 22:13 Q15MIN PRN BG 50-70 responsive npo pt Dextrose 50 ml 07/19/25 22:14 Dextrose 50%-Water Inj 50 Ml Syringe IV 08/18/25 22:13 Q15MIN PRN BG <50 OR BG <70 & pt unresponsive Enoxaparin Sodium 40 mg 07/20/25 09:00 Enoxaparin Sod Inj 40 Mg/0.4 Ml Syringe SC 08/03/25 08:59 QDAY [facility] Furosemide 20 mg 07/20/25 09:00 Furosemide Inj 10 Mg/Ml Vial 2 Ml IVP 08/19/25 08:59 QDAY JEANNE Glucagon 1 mg 07/19/25 22:14 Glucagon Inj 1 Mg Vial IM Q15MIN PRN BG <70, and no IV access Remdesivir 100 mg/ Sodium 100 mls @ 100 mls/hr 07/20/25 14:00 Chloride IV 07/21/25 14:59 Q24H NR Protocol Insulin Human Lispro 0 unit 07/20/25 06:15 07/20/25 06:07 Insulin Lispro (Admelog) 1 Unit/0.01 Ml Unit SC 08/19/25 06:14 Not Given Q6H JEANNE Protocol Ondansetron HCl 4 mg 07/19/25 22:02 Ondansetron Inj 2 Mg/Ml Inj 2 Ml IVP 08/18/25 22:01 Q6H PRN NAUSEA OR VOMITING Protocol Pantoprazole Sodium 40 mg 07/20/25 09:00 Pantoprazole Inj 40 Mg Vial IVP 08/19/25 08:59 QDAY JEANNE Plan Mr. Reyes is a 44-year-old male with a PMH of morbid obesity, schizophrenia, hypertension, T2DM, BHAVESH on CPAP, and obesity hypoventilation syndrome on 2 L baseline of O2 who is currently admitted for acute on chronic hypercarbic respiratory failure and COVID pneumonia. currently on 5 L NC satting 94 % #Acute on chronic hypercarbic respiratory failure- improving #COVID-pneumonia - likely resolved #OHS #Chronic respiratory acidosis with appropriate renal compensation Patient currently on BiPAP at this time, and tachypneic with respiratory rate ~30 If patient does not improve with BiPAP, patient may need to be intubated Patient's risk factors for worsening respiratory status with COVID-pneumonia include diabetes and morbid obesity Will initiate COVID-pneumonia treatment with steroids, no antivirals indicated at this time given on day 5 of covid infection Will hold on superimposed bacterial treatment at this time given procal negative Will also give additional diuretic for concern with heart failure, however previous echo does show preserved ejection fraction ABG does show pH of 7.35 with bicarb of 30 VBG with ph 7.37, pO2 124, pCO2 55 Plan: - COVID PCR positive - cocci serolgies pending ? Decadron 6 mg IV for 10 days (07/19- ? DuoNeb every 4 hours ? Lasix 40 mg IV x 1 - Lasix 40 mg IV qd ? BiPAP at night #Hypertensive urgency, resolved #HTN Plan: - cont home lisinopril 10 qd, - cont home carvedilil 6.25 bid #Hyperlipidemia Chronic Plan: ? home Lipitor 20 mg at bedtime #History of schizophrenia Patient is on home Abilify Plan: ? Resumed home Abilify - resume home benztropine 1 mg bid #Fby-akzmaqq-qfyahoque type 2 diabetes mellitus - well controlled A1c 6.6 Plan: ? Sliding scale insulin ? Hypoglycemic protocol in place ? Blood sugar checks with meals #Health Maintenance Disposition: Telemetry DVT prophylaxis: Lovenox GI prophylaxis: Protonix Diet: carb consistent diet . CODE STATUS: Full Plan discussed with Dr Du, and Dr. Rohini Santos MD PGY1 Attending Provider Attestation/Addendum I have discussed and was present for the essential components of the history, physical examination, diagnosis, and treatment plan with the resident. I agree with the patient's care as documented by the resident and amended herein by me. Roverto Nova, DO. Although this document has been carefully reviewed, there may still be some phonetic and other typographical errors. These errors are purely grammatical due to imperfections in the software program and should not be construed in any way to compromise the substance of the patient's medical care during this visit. Patient seen and evaluated this AM. No acute events overnight, patient has been off BiPAP since breakfast, SpO2 95% on 6 L right now. VBG was ordered demonstrating corrected values of pH of 7.4, pCO2 48 and bicarb 30. Patient is on dexamethasone, adjusted the dose to 6 mg daily. I will also start remdesivir today as the patient does have risk factors such as morbid obesity and diabetes as well as he is on much greater oxygen than he has on at home which is 2 L. Pro-Raimundo was negative hence we will defer antibiotics at this time as I have lower suspicion for possible superimposed bacterial pneumonia however may start if the patient worsens. Will order CRP, liver enzymes and D-dimer every other day. Of note, COVID PCR was ordered and was positive. Will continue to monitor closely while he is here.
[2025-07-20] MEDS: DEXAMETHASONE SOD PHOS INJ 10 MG/ML VIAL 6 MG IVP (09:05)
[2025-07-20] MEDS: ENOXAPARIN SOD INJ 40 MG/0.4 ML SYRINGE SC (09:06)
[2025-07-20] MEDS: FUROSEMIDE INJ 10 MG/ML VIAL 2 ML 20 MG IVP (09:06)
[2025-07-20 12:56] LABS: Base Excess, Venous 5 (-3-3); O2 Saturation, Venous 99 % (96-97); PCO2, Venous 55 mmHg (36-56); PO2, Venous 124 mmHg (15-58); pH, Venous 7.37 (7.33-7.66)
[2025-07-20 13:00] LABS: COVID-19 Confirmatory PCR Positive (Neg)
--- NOTE | 2025-07-20 13:07 | PC.SS ---
44YO male, reason for visit: COVID, PNEUMONIA SS met with patient at bedside, role, and purpose of today?s contact was explained. Patient?s primary medical surrogate decisonmaker is his sibling, Jany Santa [phone]. Patient stated he is independent with both ADLs and ambulation. Patient reports having home oxygen and it is used at all times. Patient unable to recall liter flow or DME provider. [facility]. PCP: Rod Hernandez, last appt. was 07/16/25. Discharge plan discussed with patient, he is requesting to return home at the time of discharge. Next of kin: Sibling, Jany Santa [phone]. Discharge plan: Home, family to transport.
[2025-07-20] MEDS: REMDESIVIR INJ 200 MG in SODIUM CHLORIDE 0.9% 250 ML 250 ML 250 MG IV (14:12)
[2025-07-20 15:07] LABS: Cocci Serology, IgM Negative (Negative)
[2025-07-20] MEDS: INSULIN LISPRO (AdmeLOG) 1 UNIT/0.01 ML UNIT SC (20:15)
[2025-07-20] MEDS: BENZTROPINE 0.5 MG TABLET 1 MG PO (20:15)
[2025-07-20] MEDS: ATORVASTATIN CALCIUM 10 MG TABLET 20 MG PO (20:15)
[2025-07-21] VITALS (17 sets, daily range): BP systolic 122–159; BP diastolic 79–97; PULSE 82–100; RESP 14–29; TEMP 36.1–36.9; O2SAT 93–99
[2025-07-21 05:56] LABS: Basophils # (Auto) 0.0 Thou/mm3 (0.0-0.2); Basophils % (Auto) 0 % (0-2.5); Eosinophils # (Auto) 0.0 Thou/mm3 (0.0-0.5); Eosinophils % (Auto) 0 % (0-10); Hematocrit 46.3 % (41.0-53.0); Hemoglobin 14.5 g/dL (13.5-16.0); Immature Granulocytes Auto 0.12 Thou/mm3 (0.00-0.00); Lymphocytes # (Auto) 1.2 Thou/mm3 (1.0-4.8); Lymphocytes % (Auto) 9 % (10-50); Mean Corpuscular HGB Conc 31.3 g/dl (31.0-37.0); Mean Corpuscular Hemoglobin 27.7 pg (25.0-35.0); Mean Corpuscular Volume 89 fL (80-100); Monocytes # (Auto) 0.7 Thou/mm3 (0.0-0.8); Monocytes % (Auto) 5 % (0-12); Neutrophils # (Auto) 11.7 Thou/mm3 (1.8-7.7); Neutrophils % (Auto) 85 % (37-80); Nucleated Red Blood Cell # 0.00 Thou/mm3 (0.00-0.00); Nucleated Red Blood Cell % 0 /100 WBC (0); Platelet Count 247 Thou/mm3 (140-440); RDW Standard Deviation 52.4 fL (35.1-43.9); Red Blood Count 5.23 Miln/mm3 (4.50-5.90); White Blood Count 13.7 Thou/mm3 (3.8-10.6)
[2025-07-21 06:22] LABS: Alanine Aminotransferase 60 U/L (10-49); Albumin, Serum 4.3 gm/dL (3.5-5.0); Albumin/Globulin Ratio 1.5 (1.2-2.2); Alkaline Phosphatase 78 U/L (46-116); Anion Gap 9 (7-16); Aspartate Amino Transferase 31 U/L (0-34); BUN/Creatinine Ratio 20 Ratio (12-20); Bilirubin,Total 0.4 mg/dL (0.3-1.2); Blood Urea Nitrogen 16 mg/dL (9-23); Calcium 9.2 mg/dL (8.3-10.6); Calcium (Corrected) 9.2 mg/dL (8.5-10.1); Carbon Dioxide 31.4 mMol/L (20.0-31.0); Chloride 101 mMol/L (98-107); Creatinine (Component) 0.8 mg/dL (0.6-1.3); Estimated Creatinine Clearance 168.0 mL/min (>60); Globulin 2.8 gm/dL (2.3-3.5); Glucose 148 mg/dL (74-106); Magnesium 2.2 mg/dL (1.6-2.6); Osmolality,Calculated 285 (275-295); Phosphorous 3.8 mg/dL (2.4-5.1); Potassium 3.9 mMol/L (3.4-5.1); Sodium 141 mMol/L (136-145); Total Protein 7.1 gm/dL (5.7-8.2); eGFR > 60 See Note
--- NOTE | 2025-07-21 07:02 | ESPR_ITS ---
<Statement entered by Eli Ashton MD - 07/21/25 12:19> Patient examiend at bedside. Admitted for Acute on chronic hypercapnic hypoxic respiratory failure 2/2 BHAVESH vs COVID pneumonitis. Patient has history of readmissions requiring intubations due to noncompliance with CPAP machine and poor follow up. Patient is poor historian and unable to state if he recently was COVID positive or not. From chart review, there was course of antibiotics prescribed. COVD PCR test was positive therefore start Remdesavir therapy with steroids. He was sitting comofortablely in bed, just finished breakfast. At bedside he is on 6L NC saturating 96%. Continuing BiPAP HS, steroids, duonebs, and Lasix for support. Wean oxygen and monitor blood sugars. The patient's management plan was discussed with my attending physician Dr. Nova. Eli Ashton, PGY-2 Documentation for date of: 07/21/25 Subjective Subjective Interval history: Zay Reyes is a 44-year-old male with a PMH of morbid obesity, schizophrenia, hypertension, T2DM, BHAVESH on CPAP, and obesity hypoventilation syndrome on 2 L baseline of O2 who was BIBA for evaluation of shortness of breath. There is reported that patient tested positive for COVID 4 days ago, and had been given some medicines including steroids, however patient came to the ED for further evaluation as his symptoms worsen. He is currently on the BiPAP at this time and is unable to provide history at this time. Of note, patient was recently admitted in May for similar symptoms and had attempted pleural drainage, however there was no fluid to drain at the time. ED Course: Patient came into the ED with a temperature of 97.8, heart rate 82, respiratory rate 29, blood pressure 148/71, saturating 95% on 6 L nasal cannula. Patient was worked up was found to have a white count of 11.5, hemoglobin 14, ABG pH of 7.35, pCO2 of 53, bicarb of 30, sodium 139, potassium of 3.7, chloride 102, serum bicarb of 28, creatinine 0.8, glucose 193, lactate 1.7, calcium 8.7, ALT 50, troponin negative x 1, BNP negative, procalcitonin 0.06. EKG was done which showed sinus rhythm, heart rate 78, QTc of 397. EKG was done which showed mild vascular congestion, suspicious for right base pneumonia. 07/20/2025: Patient seen and examined while in telemetry. Patient not currently wearing BiPAP as patient is eating breakfast comfortably with nasal cannula in place satting 94% on 5 L. Patient continues on Decadron 6 mg IV Lasix 40 daily, he is pending COVID PCR. No new concerns. WBC 12 from 11, patient remains afebrile, COVID PCR positive, pending cocci serolgies. 07/21/2025: Patient seen and examined in telemetry. Patient not currently wearing BiPAP as patient is eating breakfast comfortably with nasal cannula in place satting 92% on 5 L. Patient continues on Decadron 6 mg IV Lasix 40 daily, COVID PCR positive, Cocci negative. No new concerns. Started on remdesivir.patient remains afebrile, but still requires >4L oxygen Exam Vital Signs Temp Pulse Resp BP Pulse Ox O2 Del Method O2 Flow Rate 97.4 F 94 16 151/93 H 93 L BiPAP 35.7 07/21/25 04:00 07/21/25 04:00 07/21/25 04:00 07/21/25 04:00 07/21/25 04:00 07/21/25 04:00 07/21/25 04:00 FiO2 35 07/21/25 03:01 Narrative Exam GENERAL: no acute distress, comfortably laying in bed HEENT: Head AT/ NC. Mucous membranes moist. PERRL. CARDIOVASCULAR: RRR. Normal S1/S2, No m/r/g. Trace edema of bilateral LEs. RESPIRATORY: CTAB. No wheezing, rhonchi, crackles. (exam limited by habitus) GASTROINTESTINAL: Abdomen soft, non tender no palpable masses. Bowel sounds present MUSCULOSKELETAL:? No cyanosis or edema, no visible joint swelling. feet are restlessly moving on exam NEUROLOGICAL: CN II-XII grossly intact. No focal deficits. Sensation intact, symmetric. PSYCHIATRIC: Awake and alert, not agitated, normal mood and affect. SKIN: No obvious rashes, no jaundice, normal turgor. Objective Labs 07/21/25 05:35 07/21/25 05:35 Labs: Laboratory Results - last 24 hr 07/20/25 07/20/25 07/20/25 04:00 09:15 12:43 WBC RBC Hgb Hct MCV MCH MCHC RDW Std Deviation Plt Count Neut % (Auto) Lymph % (Auto) [place] % (Auto) Eos % (Auto) Baso % (Auto) Neut # (Auto) Lymph # (Auto) [place] # (Auto) Eos # (Auto) Baso # (Auto) Immature Gran # (Auto) Absolute Nucleated RBC Immature Gran % Nucleated RBC % VBG pH 7.37 VBG pCO2 55 VBG pO2 124 H VBG O2 Sat (Daryl) 99 H VBG Base Excess 5 H Sodium Potassium Chloride Carbon Dioxide Anion Gap BUN Creatinine Estim Creat Clear Calc eGFR BUN/Creatinine Ratio Glucose Calculated Osmolality Calcium Corrected Calcium Phosphorus Magnesium Total Bilirubin AST ALT Alkaline Phosphatase Total Protein Albumin Globulin Albumin/Globulin Ratio Coccidioides IgM Ab Negative SARS-CoV-2 (PCR) Positive A* 07/21/25 05:35 WBC 13.7 H RBC 5.23 Hgb 14.5 Hct 46.3 MCV 89 MCH 27.7 MCHC 31.3 RDW Std Deviation 52.4 H Plt Count 247 D Neut % (Auto) 85 H Lymph % (Auto) 9 L [place] % (Auto) 5 Eos % (Auto) 0 Baso % (Auto) 0 Neut # (Auto) 11.7 H Lymph # (Auto) 1.2 [place] # (Auto) 0.7 Eos # (Auto) 0.0 Baso # (Auto) 0.0 Immature Gran # (Auto) 0.12 H Absolute Nucleated RBC 0.00 Immature Gran % 1 H Nucleated RBC % 0 VBG pH VBG pCO2 VBG pO2 VBG O2 Sat (Daryl) VBG Base Excess Sodium 141 Potassium 3.9 Chloride 101 Carbon Dioxide 31.4 H Anion Gap 9 BUN 16 Creatinine 0.8 Estim Creat Clear Calc 168.0 eGFR > 60 BUN/Creatinine Ratio 20 Glucose 148 H Calculated Osmolality 285 Calcium 9.2 Corrected Calcium 9.2 Phosphorus 3.8 Magnesium 2.2 Total Bilirubin 0.4 AST 31 ALT 60 H Alkaline Phosphatase 78 Total Protein 7.1 Albumin 4.3 Globulin 2.8 Albumin/Globulin Ratio 1.5 Coccidioides IgM Ab SARS-CoV-2 (PCR) ABG Interpretation ABG results: 07/19/25 07/20/25 19:13 12:43 ABG pH 7.35 ABG pCO2 53 H ABG pO2 97 ABG HCO3 30 H ABG O2 Saturation 98 ABG Base Excess 3 VBG pH 7.37 VBG pCO2 55 VBG pO2 124 H VBG Base Excess 5 H Quality Measures Quality Measures VTE prophylaxis Assessment & Plan Assessment Current Active Medications: Generic Name Dose Route Start Last Admin Trade Name Luisa PRN Reason Stop Dose Admin Acetaminophen 650 mg 07/19/25 22:02 Acetaminophen 325 Mg Tablet PO 08/18/25 22:01 Q6H PRN Fever >100 or pain 1-3 Hydrocodone Bitart/Acetaminophen 1 tab 07/19/25 22:02 Hydrocodone/Apap 5/325 Tablet PO 07/24/25 22:01 Q4HR PRN PAIN SCALE 4-6 (Moderate Albuterol/Ipratropium 3 ml 07/19/25 23:00 07/20/25 22:37 Albuterol/Ipratropium (Duoneb) Rt Katarina 3 Ml Nebu INH 08/18/25 22:59 3 ml Q4HRRT JEANNE Administration Aripiprazole 5 mg 07/20/25 09:00 07/20/25 09:06 Aripiprazole 5 Mg Tablet PO 08/19/25 08:59 5 mg QDAY JEANNE Administration Atorvastatin Calcium 20 mg 07/20/25 21:00 07/20/25 20:15 Atorvastatin Calcium 10 Mg Tablet PO 08/19/25 20:59 20 mg HS JEANNE Administration Benztropine Mesylate 1 mg 07/20/25 21:00 07/20/25 20:15 Benztropine 0.5 Mg Tablet PO 08/19/25 20:59 1 mg BID JEANNE Administration Carvedilol 6.25 mg 07/20/25 17:30 07/20/25 16:48 Carvedilol 3.125 Mg Tablet PO 08/19/25 17:29 6.25 mg BIDWM JEANNE Administration Dexamethasone Sodium Phosphate 6 mg 07/20/25 09:00 07/20/25 09:05 Dexamethasone Sod Phos Inj 10 Mg/Ml Vial IVP 08/19/25 08:59 6 mg QDAY JEANNE Administration Protocol Dextrose 25 ml 07/19/25 22:14 Dextrose 50%-Water Inj 50 Ml Syringe IV 08/18/25 22:13 Q15MIN PRN BG 50-70 responsive npo pt Dextrose 50 ml 07/19/25 22:14 Dextrose 50%-Water Inj 50 Ml Syringe IV 08/18/25 22:13 Q15MIN PRN BG <50 OR BG <70 & pt unresponsive Enoxaparin Sodium 40 mg 07/20/25 09:00 07/20/25 09:06 Enoxaparin Sod Inj 40 Mg/0.4 Ml Syringe SC 08/03/25 08:59 40 mg QDAY JEANNE Administration Furosemide 40 mg 07/21/25 09:00 Furosemide Inj 10 Mg/Ml Vial 2 Ml IVP 08/20/25 08:59 QDAY JEANNE Glucagon 1 mg 07/19/25 22:14 Glucagon Inj 1 Mg Vial IM Q15MIN PRN BG <70, and no IV access Remdesivir 100 mg/ Sodium 100 mls @ 100 mls/hr 07/21/25 14:00 Chloride IV 07/22/25 14:59 Q24H NR Protocol Insulin Human Lispro 0 unit 07/20/25 17:15 07/20/25 20:15 Insulin Lispro (Admelog) 1 Unit/0.01 Ml Unit SC 08/19/25 17:14 1 unit ACHS JEANNE Administration Protocol Lisinopril 10 mg 07/21/25 09:00 Lisinopril 2.5 Mg Tablet PO 08/20/25 08:59 QDAY JEANNE Ondansetron HCl 4 mg 07/19/25 22:02 Ondansetron Inj 2 Mg/Ml Inj 2 Ml IVP 08/18/25 22:01 Q6H PRN NAUSEA OR VOMITING Protocol Pantoprazole Sodium 40 mg 07/20/25 09:00 07/20/25 09:05 Pantoprazole Inj 40 Mg Vial IVP 08/19/25 08:59 40 mg QDAY JEANNE Administration Plan Mr. Reyes is a 44-year-old male with a PMH of morbid obesity, schizophrenia, hypertension, T2DM, BHAVESH on CPAP, and obesity hypoventilation syndrome on 2 L baseline of O2 who is currently admitted for acute on chronic hypercarbic respiratory failure and COVID pneumonia. currently on 5 L NC satting 92 % , started on remdesivir #Acute on chronic hypercarbic respiratory failure- improving #COVID-pneumonia - likely resolved #OHS #Chronic respiratory acidosis with appropriate renal compensation Patient currently on BiPAP at this time, and tachypneic with respiratory rate ~30 If patient does not improve with BiPAP, patient may need to be intubated Patient's risk factors for worsening respiratory status with COVID-pneumonia include diabetes and morbid obesity Will initiate COVID-pneumonia treatment with steroids, no antivirals indicated at this time given on day 5 of covid infection Will hold on superimposed bacterial treatment at this time given procal negative Will also give additional diuretic for concern with heart failure, however previous echo does show preserved ejection fraction bicarb of 31 Plan: - COVID PCR positive - cocci serolgies negative - Remdesivir given comorbidities (200mg then 100mg IV) QD - ctm LFTs ? Decadron 6 mg IV for 10 days (07/19- ? DuoNeb every 4 hours - Lasix 40 mg IV qd ? BiPAP at night and PRN #Hypertensive urgency, resolved #HTN Plan: - cont home lisinopril 10 qd, - cont home carvedilil 6.25 bid #Hyperlipidemia Chronic Plan: ? home Lipitor 20 mg at bedtime #History of schizophrenia Patient is on home Abilify Plan: ? Resumed home Abilify - resume home benztropine 1 mg bid #Cnp-hekrarn-tqjfowblx type 2 diabetes mellitus - well controlled A1c 6.6 Plan: ? Sliding scale insulin ? Hypoglycemic protocol in place ? Blood sugar checks with meals #Health Maintenance Disposition: Telemetry DVT prophylaxis: Lovenox GI prophylaxis: Protonix Diet: carb consistent diet . CODE STATUS: Full Plan discussed with Dr Ashton, and Dr. Rohini Santos MD PGY1 Attending Provider Attestation/Addendum I have discussed and was present for the essential components of the history, physical examination, diagnosis, and treatment plan with the resident. I agree with the patient's care as documented by the resident and amended herein by me. Roverto Nova DO. Although this document has been carefully reviewed, there may still be some phonetic and other typographical errors. These errors are purely grammatical due to imperfections in the software program and should not be construed in any way to compromise the substance of the patient's medical care during this visit. Patient seen and evaluated this AM. No acute events overnight, patient on BiPAP overnight and this morning. There was a concern for patient aspirating this morning as per nurse, the patient was trying to eat while laying flat. Will order chest x-ray to assess however the patient much more alert and oriented than my visit to bedside yesterday. Will continue dexamethasone 6 mg daily and remdesivir for now, likely discharge in 1 to 2 days pending improved O2 requirements however may be longer as the patient has several comorbidities which may prolong or worsen this COVID-pneumonia. Will continue to monitor closely while he is here.
[2025-07-21] MEDS: ALBUTEROL/IPRATROPIUM (Duoneb) RT SOL 3 ML NEBU INH ×5 (07:14→23:07)
[2025-07-21] MEDS: DEXAMETHASONE SOD PHOS INJ 10 MG/ML VIAL 6 MG IVP (09:20)
[2025-07-21] MEDS: FUROSEMIDE INJ 10 MG/ML VIAL 2 ML 40 MG IVP (09:22)
[2025-07-21] MEDS: ENOXAPARIN SOD INJ 40 MG/0.4 ML SYRINGE SC (09:23)
[2025-07-21] MEDS: BENZTROPINE 0.5 MG TABLET 1 MG PO ×2 (09:24→20:40)
--- NOTE | 2025-07-21 11:00 | PC.SS ---
rounding note: Covid positive. Patient currently on bipap. Attempt to wean 02
--- NOTE | 2025-07-21 11:12 | XR_ITS ---
Examination: AP portable chest single view Technique one AP portable chest single view Date and time: July 21, 2025, 12 0 2:00 PM. Indications: Choking today. Findings: Moderate enlargement cardiac contour. Pneumonia left base with air bronchograms. No pulmonary edema Impression: Left base retrocardiac pneumonia
--- NOTE | 2025-07-21 11:24 | PC.SS ---
rounding note: received a call from patient's sister wanting us to update [facility] with current settings. staff will call [facility] Tuesday morning with update. Patient uses a CPAP at home from [facility] and sister states that [facility] wants us to update them on current settings. Lakisha, mom, #[phone] Jany Santa, sister,
[2025-07-21] MEDS: REMDESIVIR INJ 100 MG in SODIUM CHLORIDE 0.9% 100 ML IV (13:27)
[2025-07-21] MEDS: ATORVASTATIN CALCIUM 10 MG TABLET 20 MG PO (20:40)
[2025-07-22] VITALS (18 sets, daily range): BP systolic 122–162; BP diastolic 71–91; PULSE 70–95; RESP 13–30; TEMP 36.1–36.4; O2SAT 92–99; BMI 53.6
[2025-07-22] MEDS: ALBUTEROL/IPRATROPIUM (Duoneb) RT SOL 3 ML NEBU INH ×6 (02:13→22:08)
[2025-07-22 05:31] LABS: Basophils # (Auto) 0.0 Thou/mm3 (0.0-0.2); Basophils % (Auto) 0 % (0-2.5); Eosinophils # (Auto) 0.0 Thou/mm3 (0.0-0.5); Eosinophils % (Auto) 0 % (0-10); Hematocrit 42.6 % (41.0-53.0); Hemoglobin 13.8 g/dL (13.5-16.0); Immature Granulocytes Auto 0.07 Thou/mm3 (0.00-0.00); Lymphocytes # (Auto) 1.6 Thou/mm3 (1.0-4.8); Lymphocytes % (Auto) 12 % (10-50); Mean Corpuscular HGB Conc 32.4 g/dl (31.0-37.0); Mean Corpuscular Hemoglobin 28.7 pg (25.0-35.0); Mean Corpuscular Volume 89 fL (80-100); Monocytes # (Auto) 0.7 Thou/mm3 (0.0-0.8); Monocytes % (Auto) 5 % (0-12); Neutrophils # (Auto) 11.2 Thou/mm3 (1.8-7.7); Neutrophils % (Auto) 82 % (37-80); Nucleated Red Blood Cell # 0.00 Thou/mm3 (0.00-0.00); Nucleated Red Blood Cell % 0 /100 WBC (0); Platelet Count 221 Thou/mm3 (140-440); RDW Standard Deviation 52.0 fL (35.1-43.9); Red Blood Count 4.81 Miln/mm3 (4.50-5.90); White Blood Count 13.6 Thou/mm3 (3.8-10.6)
[2025-07-22 05:57] LABS: Alanine Aminotransferase 59 U/L (10-49); Albumin, Serum 4.0 gm/dL (3.5-5.0); Albumin/Globulin Ratio 1.6 (1.2-2.2); Alkaline Phosphatase 73 U/L (46-116); Anion Gap 9 (7-16); Aspartate Amino Transferase 31 U/L (0-34); BUN/Creatinine Ratio 23 Ratio (12-20); Bilirubin,Direct 0.1 mg/dL (0.0-0.3); Bilirubin,Total 0.5 mg/dL (0.3-1.2); Blood Urea Nitrogen 18 mg/dL (9-23); C-Reactive Protein 0.6 mg/dL (0.0-0.9); Calcium 9.5 mg/dL (8.3-10.6); Calcium (Corrected) 9.5 mg/dL (8.5-10.1); Carbon Dioxide 33.5 mMol/L (20.0-31.0); Chloride 97 mMol/L (98-107); Creatinine (Component) 0.8 mg/dL (0.6-1.3); Estimated Creatinine Clearance 169.5 mL/min (>60); Globulin 2.5 gm/dL (2.3-3.5); Glucose 132 mg/dL (74-106); Magnesium 2.1 mg/dL (1.6-2.6); Osmolality,Calculated 281 (275-295); Phosphorous 4.4 mg/dL (2.4-5.1); Potassium 3.8 mMol/L (3.4-5.1); Sodium 139 mMol/L (136-145); Total Protein 6.5 gm/dL (5.7-8.2); eGFR > 60 See Note
[2025-07-22 07:29] LABS: D-Dimer < 250 ng/mL (<600)
[2025-07-22] MEDS: BENZTROPINE 0.5 MG TABLET 1 MG PO ×2 (08:35→21:27)
[2025-07-22] MEDS: DEXAMETHASONE SOD PHOS INJ 10 MG/ML VIAL 6 MG IVP (08:36)
[2025-07-22] MEDS: ENOXAPARIN SOD INJ 40 MG/0.4 ML SYRINGE SC (08:36)
[2025-07-22] MEDS: FUROSEMIDE INJ 10 MG/ML VIAL 2 ML 40 MG IVP (08:37)
[2025-07-22 09:03] LABS: Base Excess, Venous 6 (-3-3); O2 Saturation, Venous 85 % (96-97); PCO2, Venous 44 mmHg (36-56); PO2, Venous 46 mmHg (15-58); pH, Venous 7.46 (7.33-7.66)
--- NOTE | 2025-07-22 12:06 | ESPR_ITS ---
<Statement entered by Eli Ashton MD - 07/22/25 13:48> Patient examined at bedside. Admitted for Acute on chronic hypercapnic hypoxic respiratory failure 2/2 BHAVESH vs COVID pneumonitis. COVD PCR test was positive--stared Remdesavir therapy on 07/21 with IV dexamethasone 6 mg daily (07/20) He was sitting comfortably in bed, just finished breakfast. Has no major complaints. At bedside he is on 5L NC saturating 94%. Continuing BiPAP HS, steroids, duonebs, and Lasix for support. Wean oxygen and monitor blood sugars. The patient's management plan was discussed with my attending physician Dr. Nova. Eil Ashton, PGY-2 Documentation for date of: 07/22/25 Subjective Subjective Interval history: Zay Reyes is a 44-year-old male with a PMH of morbid obesity, schizophrenia, hypertension, T2DM, BHAVESH on CPAP, and obesity hypoventilation syndrome on 2 L baseline of O2 who was BIBA for evaluation of shortness of breath. There is reported that patient tested positive for COVID 4 days ago, and had been given some medicines including steroids, however patient came to the ED for further evaluation as his symptoms worsen. He is currently on the BiPAP at this time and is unable to provide history at this time. Of note, patient was recently admitted in May for similar symptoms and had attempted pleural drainage, however there was no fluid to drain at the time. ED Course: Patient came into the ED with a temperature of 97.8, heart rate 82, respiratory rate 29, blood pressure 148/71, saturating 95% on 6 L nasal cannula. Patient was worked up was found to have a white count of 11.5, hemoglobin 14, ABG pH of 7.35, pCO2 of 53, bicarb of 30, sodium 139, potassium of 3.7, chloride 102, serum bicarb of 28, creatinine 0.8, glucose 193, lactate 1.7, calcium 8.7, ALT 50, troponin negative x 1, BNP negative, procalcitonin 0.06. EKG was done which showed sinus rhythm, heart rate 78, QTc of 397. EKG was done which showed mild vascular congestion, suspicious for right base pneumonia. 07/20/2025: Patient seen and examined while in telemetry. Patient not currently wearing BiPAP as patient is eating breakfast comfortably with nasal cannula in place satting 94% on 5 L. Patient continues on Decadron 6 mg IV Lasix 40 daily, he is pending COVID PCR. No new concerns. WBC 12 from 11, patient remains afebrile, COVID PCR positive, pending cocci serolgies. 07/21/2025: Patient seen and examined in telemetry. Patient not currently wearing BiPAP as patient is eating breakfast comfortably with nasal cannula in place satting 92% on 5 L. Patient continues on Decadron 6 mg IV Lasix 40 daily, COVID PCR positive, Cocci negative. No new concerns. Started on remdesivir.patient remains afebrile, but still requires >4L oxygen 07/22/2025: Patient seen and examined in Tele, not wearing biPAP as pt hs finished eating breakfast. NC in place sattin 94 on 3-4L. Pt continues on decadron 6 mg IV, Lasix 40 qd, no new concerns, on Remdesivir, LFTs are stable, possible d/c tomorrow Exam Vital Signs Temp Pulse Resp BP Pulse Ox O2 Del Method O2 Flow Rate 96.9 F 87 21 H 138/84 H 99 Nasal Cannula 4 07/22/25 08:00 07/22/25 10:27 07/22/25 10:27 07/22/25 08:37 07/22/25 10:27 07/22/25 08:00 07/22/25 08:00 FiO2 4 07/22/25 10:27 Narrative Exam GENERAL: no acute distress, comfortably laying in bed HEENT: Head AT/ NC. Mucous membranes moist. PERRL. CARDIOVASCULAR: RRR. Normal S1/S2, No m/r/g. Trace edema of bilateral LEs. RESPIRATORY: CTAB. No wheezing, rhonchi, crackles. (exam limited by habitus) GASTROINTESTINAL: Abdomen soft, non tender no palpable masses. Bowel sounds present MUSCULOSKELETAL:? No cyanosis or edema, no visible joint swelling. feet are restlessly moving on exam NEUROLOGICAL: CN II-XII grossly intact. No focal deficits. Sensation intact, symmetric. PSYCHIATRIC: Awake and alert, not agitated, normal mood and affect. SKIN: No obvious rashes, no jaundice, normal turgor. Objective Labs 07/22/25 05:19 07/22/25 05:19 Labs: Laboratory Results - last 24 hr 07/22/25 07/22/25 05:19 08:51 WBC 13.6 H RBC 4.81 Hgb 13.8 Hct 42.6 MCV 89 MCH 28.7 MCHC 32.4 RDW Std Deviation 52.0 H Plt Count 221 Neut % (Auto) 82 H Lymph % (Auto) 12 Walsh % (Auto) 5 Eos % (Auto) 0 Baso % (Auto) 0 Neut # (Auto) 11.2 H Lymph # (Auto) 1.6 Walsh # (Auto) 0.7 Eos # (Auto) 0.0 Baso # (Auto) 0.0 Immature Gran # (Auto) 0.07 H Absolute Nucleated RBC 0.00 Immature Gran % 1 H Nucleated RBC % 0 D-Dimer < 250 VBG pH 7.46 VBG pCO2 44 D VBG pO2 46 D VBG O2 Sat (Daryl) 85 L D VBG Base Excess 6 H Sodium 139 Potassium 3.8 Chloride 97 L Carbon Dioxide 33.5 H Anion Gap 9 BUN 18 Creatinine 0.8 Estim Creat Clear Calc 169.5 eGFR > 60 BUN/Creatinine Ratio 23 H Glucose 132 H Calculated Osmolality 281 Calcium 9.5 Corrected Calcium 9.5 Phosphorus 4.4 Magnesium 2.1 Total Bilirubin 0.5 Direct Bilirubin 0.1 AST 31 ALT 59 H Alkaline Phosphatase 73 C-Reactive Prot, Quant 0.6 Total Protein 6.5 Albumin 4.0 Globulin 2.5 Albumin/Globulin Ratio 1.6 ABG Interpretation ABG results: 07/19/25 07/20/25 07/22/25 19:13 12:43 08:51 ABG pH 7.35 ABG pCO2 53 H ABG pO2 97 ABG HCO3 30 H ABG O2 Saturation 98 ABG Base Excess 3 VBG pH 7.37 7.46 VBG pCO2 55 44 D VBG pO2 124 H 46 D VBG Base Excess 5 H 6 H Quality Measures Quality Measures VTE prophylaxis Assessment & Plan Assessment Current Active Medications: Generic Name Dose Route Start Last Admin Trade Name Freq PRN Reason Stop Dose Admin Acetaminophen 650 mg 07/19/25 22:02 Acetaminophen 325 Mg Tablet PO 08/18/25 22:01 Q6H PRN Fever >100 or pain 1-3 Hydrocodone Bitart/Acetaminophen 1 tab 07/19/25 22:02 Hydrocodone/Apap 5/325 Tablet PO 07/24/25 22:01 Q4HR PRN PAIN SCALE 4-6 (Moderate Albuterol/Ipratropium 3 ml 07/19/25 23:00 07/22/25 10:27 Albuterol/Ipratropium (Duoneb) Rt Katarina 3 Ml Nebu INH 08/18/25 22:59 3 ml Q4HRRT JEANNE Administration Aripiprazole 5 mg 07/20/25 09:00 07/22/25 08:36 Aripiprazole 5 Mg Tablet PO 08/19/25 08:59 5 mg QDAY JEANNE Administration Atorvastatin Calcium 20 mg 07/20/25 21:00 07/21/25 20:40 Atorvastatin Calcium 10 Mg Tablet PO 08/19/25 20:59 20 mg HS JEANNE Administration Benztropine Mesylate 1 mg 07/20/25 21:00 07/22/25 08:35 Benztropine 0.5 Mg Tablet PO 08/19/25 20:59 1 mg BID JEANNE Administration Carvedilol 6.25 mg 07/20/25 17:30 07/22/25 08:32 Carvedilol 3.125 Mg Tablet PO 08/19/25 17:29 6.25 mg BIDWM JEANNE Administration Dexamethasone Sodium Phosphate 6 mg 07/20/25 09:00 07/22/25 08:36 Dexamethasone Sod Phos Inj 10 Mg/Ml Vial IVP 08/19/25 08:59 6 mg QDAY JEANNE Administration Protocol Dextrose 25 ml 07/19/25 22:14 Dextrose 50%-Water Inj 50 Ml Syringe IV 08/18/25 22:13 Q15MIN PRN BG 50-70 responsive npo pt Dextrose 50 ml 07/19/25 22:14 Dextrose 50%-Water Inj 50 Ml Syringe IV 08/18/25 22:13 Q15MIN PRN BG <50 OR BG <70 & pt unresponsive Enoxaparin Sodium 40 mg 07/20/25 09:00 07/22/25 08:36 Enoxaparin Sod Inj 40 Mg/0.4 Ml Syringe SC 08/03/25 08:59 40 mg QDAY JEANNE Administration Furosemide 40 mg 07/21/25 09:00 07/22/25 08:37 Furosemide Inj 10 Mg/Ml Vial 2 Ml IVP 08/20/25 08:59 40 mg QDAY JEANNE Administration Glucagon 1 mg 07/19/25 22:14 Glucagon Inj 1 Mg Vial IM Q15MIN PRN BG <70, and no IV access Remdesivir 100 mg/ Sodium 100 mls @ 100 mls/hr 07/21/25 14:00 07/21/25 13:27 Chloride IV 07/22/25 14:59 100 mls/hr Q24H NR Administration Protocol Insulin Human Lispro 0 unit 07/20/25 17:15 07/22/25 07:38 Insulin Lispro (Admelog) 1 Unit/0.01 Ml Unit SC 08/19/25 17:14 Not Given ACHS JEANNE Protocol Lisinopril 10 mg 07/21/25 09:00 07/22/25 08:35 Lisinopril 2.5 Mg Tablet PO 08/20/25 08:59 10 mg QDAY JEANNE Administration Ondansetron HCl 4 mg 07/19/25 22:02 Ondansetron Inj 2 Mg/Ml Inj 2 Ml IVP 08/18/25 22:01 Q6H PRN NAUSEA OR VOMITING Protocol Pantoprazole Sodium 40 mg 07/20/25 09:00 07/22/25 08:36 Pantoprazole Inj 40 Mg Vial IVP 08/19/25 08:59 40 mg QDAY JEANNE Administration Plan Mr. Reyes is a 44-year-old male with a PMH of morbid obesity, schizophrenia, hypertension, T2DM, BHAVESH on CPAP, and obesity hypoventilation syndrome on 2 L baseline of O2 who is currently admitted for acute on chronic hypercarbic respiratory failure and COVID pneumonia. currently on 3-4 L NC satting 93 % ,on remdesivir #Acute on chronic hypercarbic respiratory failure- improving #COVID-pneumonia - likely resolved #OHS #Chronic respiratory acidosis with appropriate renal compensation Patient currently on BiPAP at this time, and tachypneic with respiratory rate ~30 If patient does not improve with BiPAP, patient may need to be intubated Patient's risk factors for worsening respiratory status with COVID-pneumonia include diabetes and morbid obesity Will initiate COVID-pneumonia treatment with steroids, no antivirals indicated at this time given on day 5 of covid infection Will hold on superimposed bacterial treatment at this time given procal negative Will also give additional diuretic for concern with heart failure, however previous echo does show preserved ejection fraction bicarb of 31 Plan: - COVID PCR positive - cocci serolgies negative - Remdesivir given comorbidities (200mg then 100mg IV) QD - ctm LFTs ? Decadron 6 mg IV for 10 days (07/19- ? DuoNeb every 4 hours - Lasix 40 mg IV qd ? BiPAP at night and PRN #Hypertensive urgency, resolved #HTN Plan: - cont home lisinopril 10 qd, - cont home carvedilil 6.25 bid #Hyperlipidemia Chronic Plan: ? home Lipitor 20 mg at bedtime #History of schizophrenia Patient is on home Abilify Plan: ? Resumed home Abilify - resume home benztropine 1 mg bid #[id number] type 2 diabetes mellitus - well controlled A1c 6.6 Plan: ? Sliding scale insulin ? Hypoglycemic protocol in place ? Blood sugar checks with meals #Health Maintenance Disposition: Telemetry DVT prophylaxis: Lovenox GI prophylaxis: Protonix Diet: carb consistent diet . CODE STATUS: Full Plan discussed with Dr Ashton, and Dr. Rohini Santos MD PGY1 Attending Provider Attestation/Addendum I have discussed and was present for the essential components of the history, physical examination, diagnosis, and treatment plan with the resident. I agree with the patient's care as documented by the resident and amended herein by me. Roverto Nova, DO. Although this document has been carefully reviewed, there may still be some phonetic and other typographical errors. These errors are purely grammatical due to imperfections in the software program and should not be construed in any way to compromise the substance of the patient's medical care during this visit. Patient seen and evaluated this AM. No acute events overnight, vital signs stable, patient afebrile, labs largely unremarkable today, patient admitted for COVID-pneumonia in setting of multiple comorbidities. Patient on 4 L O2 today, baseline O2 2 L at home, will continue dexamethasone and remdesivir until time of discharge which will likely be tomorrow as the patient is significantly improved from admission.
[2025-07-22] MEDS: INSULIN LISPRO (AdmeLOG) 1 UNIT/0.01 ML UNIT SC ×3 (12:10→21:27)
[2025-07-22] MEDS: REMDESIVIR INJ 100 MG in SODIUM CHLORIDE 0.9% 100 ML IV (14:22)
--- NOTE | 2025-07-22 14:29 | PC.SS ---
Rounding: Wean down O2 requirement, DC plan home tomorrow 07/23
[2025-07-22] MEDS: ATORVASTATIN CALCIUM 10 MG TABLET 20 MG PO (21:26)
[2025-07-23] VITALS (12 sets, daily range): BP systolic 129–147; BP diastolic 61–75; PULSE 62–96; RESP 10–28; TEMP 36.1–36.6; O2SAT 92–98; BMI 53.8
[2025-07-23] MEDS: ALBUTEROL/IPRATROPIUM (Duoneb) RT SOL 3 ML NEBU INH ×3 (02:26→11:01)
[2025-07-23] MEDS: PANTOPRAZOLE 40 MG TABLET PO (09:05)
[2025-07-23] MEDS: BENZTROPINE 0.5 MG TABLET 1 MG PO (09:05)
[2025-07-23] MEDS: ENOXAPARIN SOD INJ 40 MG/0.4 ML SYRINGE SC (09:06)
[2025-07-23] MEDS: FUROSEMIDE INJ 10 MG/ML VIAL 2 ML 40 MG IVP (09:06)
[2025-07-23] MEDS: DEXAMETHASONE SOD PHOS INJ 10 MG/ML VIAL 6 MG IVP (09:07)
--- NOTE | 2025-07-23 09:14 | ESDS_ITS ---
<Statement entered by Tania Welch MD - 07/29/25 09:12> I reviewed above note and agree with findings and plans. I have also personally examined the patient with medicine team and went over assessment and plan with medical team including financial internship and resident physician. Planned Discharge Date 07/23/25 DS: Providers Provider Date of admission: 07/19/25 22:03 Primary care physician: Physician No Primary/Family Admitting Provider: David Cote MD Attending Provider on Admission: Tania Welch MD Consults: 07/20/25 04:50 Referral Infection Control Routine Comment: Reason for Infection Control Referral: Patient In Isolation Attending Provider on DC: Tania Welch MD Discharging Provider: Tania Welch MD DS: Diagnosis Problem List Completed Was Problem List Reviewed/Reconciled?: Yes Hospital Course Hospital Course Hospital course: Admission Diagnosis: Acute hypoxemic respiratory failure secondary to COVID-19 pneumonia Hospital Course: Mr. Bautista presented with shortness of breath and was found to be COVID-19 PCR positive. On admission, he required 5?6 L/min nasal cannula oxygen. He was initiated on dexamethasone 6 mg IV daily and a course of remdesivir per protocol. The patient?s oxygen requirements gradually improved over the course of hospitalization, decreasing to 3?4 L/min nasal cannula, close to his home baseline. He remained hemodynamically stable throughout his admission without need for escalation of respiratory support. His comorbid conditions, including schizophrenia, hypertension, type 2 diabetes, BHAVESH, and OHS, remained stable during hospitalization. By the time of discharge, the patient was clinically improved, saturating well on 3?4 L/min nasal cannula, tolerating oral intake, and ambulating without significant desaturation. Discharge Medications: [id number] mg PO daily ? 5 days Resume previous medications. Continue using your oxygen at home as prescribed. Check your oxygen saturation with a pulse ox periodically. Adjust your oxygen requirement to keep oxygen 95- 98%. Follow-Up: Primary care provider within 1?2 weeks Monitor oxygen requirements at home; return if worsening dyspnea, chest pain, or oxygen desaturation below instructed threshold Please seek psychiatry referral from your primary doctor. Your psychiatric medications need adjustment to avoid over sedation. Continue using home CPAP during sleep at night and also if sleeping during the day. Follow up with your primary doctor in 1-2 weeks. Discharge Condition: Stable, improved from admission, oxygenating on 3?4 L/min nasal cannula at rest Self isolate for one more day at home. Disposition: Home with family support, on home oxygen Time Spent with Patient Time attestation: Total time spent providing and/or coordinating discharge services: Time spent: Greater than 30 minutes Exam Vital Signs Temp Pulse Resp BP Pulse Ox O2 Del Method O2 Flow Rate 96.9 F 62 28 H 130/61 96 BiPAP 2 07/23/25 08:00 07/23/25 09:06 07/23/25 08:00 07/23/25 09:06 07/23/25 08:00 07/23/25 08:00 07/23/25 08:00 FiO2 55 07/23/25 08:00 Narrative Exam GENERAL: no acute distress, comfortably laying in bed HEENT: Head AT/ NC. Mucous membranes moist. PERRL. CARDIOVASCULAR: RRR. Normal S1/S2, No m/r/g. Trace edema of bilateral LEs. RESPIRATORY: CTAB. No wheezing, rhonchi, crackles. (exam limited by habitus) GASTROINTESTINAL: Abdomen soft, non tender no palpable masses. Bowel sounds present MUSCULOSKELETAL:? No cyanosis or edema, no visible joint swelling. feet are restlessly moving on exam NEUROLOGICAL: CN II-XII grossly intact. No focal deficits. Sensation intact, symmetric. PSYCHIATRIC: Awake and alert, not agitated, normal mood and affect. SKIN: No obvious rashes, no jaundice, normal turgor. Discharge Plan Plan Patient Disposition: HOME (Self Care) Prescriptions/Referrals Prescriptions/Med Rec: New prednisone 20 mg tablet 40 mg PO QDAY Qty: 5 0RF Continued metformin 500 mg tablet 500 mg PO BID Patient Comments: TAKE 1 TABLET BY MOUTH TWICE A DAY WITH FOOD fluticasone propionate 44 mcg/actuation HFA aerosol inhaler 44 mcg INHALATION PRN PRN (Reason: sob) cholecalciferol (vitamin D3) 50 mcg (2,000 unit) capsule 50 mcg PO DAILY Patient Comments: TAKE 1 TABLET ORALLY EVERY DAY carvedilol 6.25 mg tablet 6.25 mg PO BID gemfibrozil 600 mg tablet 600 mg PO BID Patient Comments: TAKE 1 TABLET BY MOUTH TWICE A DAY 30 MINUTES BEFORE MORNING AND EVENING MEAL loratadine 10 mg tablet 10 mg PO QDAY Patient Comments: TAKE 1 TABLET BY MOUTH EVERY DAY (DME) FreeStyle Caroline 3 Sensor Device See Rx Instructions .Route Qty: 1 0RF Rx Instructions: As directed furosemide [Lasix] 20 mg tablet 20 mg PO QAM Qty: 30 0RF atorvastatin 20 mg tablet 20 mg PO HS 30 Days Qty: 0 0RF Patient Comments: TAKE 1 TABLET BY MOUTH EVERY DAY cetirizine 10 mg tablet 10 mg PO QDAY Patient Comments: TAKE 1 TABLET BY MOUTH EVERY DAY lisinopril 10 mg tablet 10 mg PO QDAY Patient Comments: TAKE 1 TABLET BY MOUTH EVERY DAY benztropine 1 mg tablet 1 mg PO BID Patient Comments: TAKE 1 TABLET BY MOUTH TWICE A DAY azelastine 137 mcg (0.1 %) spray,non-aerosol 2 spray INTRANASAL Q12H benzonatate 200 mg capsule 200 mg PO TID Patient Comments: TAKE 1 CAPSULE BY MOUTH THREE TIMES A DAY NEEDED FOR COUGH haloperidol 10 mg tablet 10 mg PO BID Patient Comments: TAKE 1 TABLET BY MOUTH TWICE A DAY Discontinued methylprednisolone [Medrol (Juan F)] 4 mg tablets,dose pack 4 mg PO QDAY Qty: 21 0RF Referrals: No Primary/Family,Physician [Primary Care Provider] Patient/Caregiver Discharge Instructions Other Discharge Activity Instructions:: Resume previous medications. Complete your Prednisone 40mg for 5 days as part of treatment for COVID pneumonia. Continue using your oxygen at home as prescribed. Check your oxygen saturation with a pulse ox periodically. Adjust your oxygen requirement to keep oxygen 95- 98%. Please seek psychiatry referral from your primary doctor. Your psychiatric medications need adjustment to avoid over sedation. Continue using home CPAP during sleep at night and also if sleeping during the day. Follow up with your primary doctor in 1-2 weeks. Self isolate for one more day at home. Education Materials: COVID-19 Make Face Mask, 2019-nCoV, CPAP Print Language: Arabic Stand Alone Forms: Domitila Award Info., Patient Portal Info Letter Discharge Order Discharge Orders: Discharge (Routine); Ordered 07/23/25 Ordered By: Leticia Du Quality Discharge Quality Measures VTE prophylaxis
[2025-07-23 09:45] LABS: Basophils # (Auto) 0.0 Thou/mm3 (0.0-0.2); Basophils % (Auto) 0 % (0-2.5); Eosinophils # (Auto) 0.1 Thou/mm3 (0.0-0.5); Eosinophils % (Auto) 1 % (0-10); Hematocrit 44.2 % (41.0-53.0); Hemoglobin 14.2 g/dL (13.5-16.0); Immature Granulocytes Auto 0.06 Thou/mm3 (0.00-0.00); Lymphocytes # (Auto) 2.0 Thou/mm3 (1.0-4.8); Lymphocytes % (Auto) 15 % (10-50); Mean Corpuscular HGB Conc 32.1 g/dl (31.0-37.0); Mean Corpuscular Hemoglobin 28.3 pg (25.0-35.0); Mean Corpuscular Volume 88 fL (80-100); Monocytes # (Auto) 0.9 Thou/mm3 (0.0-0.8); Monocytes % (Auto) 7 % (0-12); Neutrophils # (Auto) 10.4 Thou/mm3 (1.8-7.7); Neutrophils % (Auto) 77 % (37-80); Nucleated Red Blood Cell # 0.00 Thou/mm3 (0.00-0.00); Nucleated Red Blood Cell % 0 /100 WBC (0); Platelet Count 220 Thou/mm3 (140-440); RDW Standard Deviation 51.6 fL (35.1-43.9); Red Blood Count 5.02 Miln/mm3 (4.50-5.90); White Blood Count 13.5 Thou/mm3 (3.8-10.6)
[2025-07-23 10:23] LABS: Alanine Aminotransferase 62 U/L (10-49); Albumin, Serum 3.8 gm/dL (3.5-5.0); Albumin/Globulin Ratio 1.3 (1.2-2.2); Alkaline Phosphatase 69 U/L (46-116); Anion Gap 9 (7-16); Aspartate Amino Transferase 36 U/L (0-34); BUN/Creatinine Ratio 15 Ratio (12-20); Bilirubin,Total 0.4 mg/dL (0.3-1.2); Blood Urea Nitrogen 12 mg/dL (9-23); Calcium 9.0 mg/dL (8.3-10.6); Calcium (Corrected) 9.2 mg/dL (8.5-10.1); Carbon Dioxide 30.0 mMol/L (20.0-31.0); Chloride 100 mMol/L (98-107); Creatinine (Component) 0.8 mg/dL (0.6-1.3); Estimated Creatinine Clearance 167.5 mL/min (>60); Globulin 2.9 gm/dL (2.3-3.5); Glucose 108 mg/dL (74-106); Magnesium 2.0 mg/dL (1.6-2.6); Osmolality,Calculated 278 (275-295); Phosphorous 3.4 mg/dL (2.4-5.1); Potassium 3.7 mMol/L (3.4-5.1); Sodium 139 mMol/L (136-145); Total Protein 6.7 gm/dL (5.7-8.2); eGFR > 60 See Note
[2025-07-23 10:50] LABS: Cocci Serology, IgG Negative (Negative)
--- NOTE | 2025-07-23 11:16 | PC.SS ---
SS follow up note; SS was contacted by patient's nurse Gary informing SS that patient's family was not answering. SS contacted patient's Surrogate decision maker, Jany and she informed SS that she would contact patient's mother to transport patient home. Jany informed SS that patient had his 02 tank at bedside. SS will update patient's nurse Gary.
--- NOTE | 2025-07-23 11:43 | PC.SS ---
[employer] reviewed chart for training purposes.
== END 2025-07-23 12:20 | disposition home or self-care (01) | DRG 137 ==
LOC: SERX 22:57 → SERHOLD 23:08 → S2NX 07-20 02:23
PROVIDERS: Nurse Practitioner Family; Student in an Organized Health Care Education/Training Program; Admitting Provider Internal Medicine; Emergency Provider Family Medicine; Visit Provider Internal Medicine
DX: U07.1 COVID-19 (principal); F20.9 Schizophrenia, unspecified; J96.22 Acute and chronic respiratory failure with hypercapnia; J12.82 Pneumonia due to coronavirus disease 2019; I16.1 Hypertensive emergency; E78.5 Hyperlipidemia, unspecified; Z79.84 Long term (current) use of oral hypoglycemic drugs; E11.9 Type 2 diabetes mellitus without complications; G47.33 Obstructive sleep apnea (adult) (pediatric); E66.01 Morbid (severe) obesity due to excess calories; I10 Essential (primary) hypertension; J96.21 Acute and chronic respiratory failure with hypoxia; Z79.899 Other long term (current) drug therapy; Z91.199 Patient's noncompliance with other medical treatment and regimen due to unspecified reason; Z68.43 Body mass index [BMI] 50.0-59.9, adult
CPT/HCPCS: 36415; 36600; 71045; 80053; 80061; 80076; 82803; 83036; 83605; 83735; 83880; 84100; 84145; 84443; 84484; 85025; 85379; 85610; 85730; 86140; 86331; 86635; 87040; 87400; 87635; 87811; 93005; 94640; 94660; 94664; 99285; A9270; J0248; J0456; J0696; J1100; J1650; J1815; J1885; J1938; J2470; J7050

== ENCOUNTER 2025-07-24 23:20 | Inpatient (IN) | payer MEDICAID, SELFPAY ==
[2025-07-24 23:22] VITALS: PULSE 80; RESP 28; O2SAT 95; BMI 51.7
[2025-07-24 23:25] VITALS: BP 131/78; PULSE 90; RESP 33; TEMP 36.3; O2SAT 98
--- NOTE | 2025-07-24 23:41 | PD.EDSOB ---
ED SOB =RME/HPI General Chief Complaint: Shortness of Breath/Dyspnea Stated Complaint: SOB Time Seen by Provider: 07/24/25 23:41 Arrival date/time: 07/24/25 23:20 RME / HPI RME / HPI Narrative: DR. ALDRIDGE MAIN ED EVALUATION: 44 y/o male with Hx of COVID PNA, Hypertension, COPD, Asthma, Sleep Apnea, Diabetes Mellitus Type 2, and Recreational Drug Use presents to ED BIBA from home c/o shortness of breath x 1 day. Denies chest pain. Per EMS, patient's O2 sats were initially 95% on room air, then increased to 99% s/p 2 breathing treatments and O2 via non-rebreather mask. Patient is normally on BiPAP at home. Patient also has a history of intubation. Related Data Home Medications ?Medication ?Instructions ?Recorded ?Confirmed carvedilol 6.25 mg tablet 6.25 mg PO BID 02/15/24 07/20/25 gemfibrozil 600 mg tablet 600 mg PO BID 02/15/24 07/20/25 loratadine 10 mg tablet 10 mg PO QDAY 02/15/24 07/20/25 cholecalciferol (vitamin D3) 50 50 mcg PO DAILY 12/03/24 07/20/25 mcg (2,000 unit) capsule fluticasone propionate 44 44 mcg inhalation PRN PRN sob 12/03/24 07/20/25 mcg/actuation HFA aerosol inhaler metformin 500 mg tablet 500 mg PO BID 12/03/24 07/20/25 azelastine 137 mcg (0.1 %) nasal 2 spray intranasal Q12H 07/20/25 07/20/25 spray benzonatate 200 mg capsule 200 mg PO TID 07/20/25 07/20/25 benztropine 1 mg tablet 1 mg PO BID 07/20/25 07/20/25 cetirizine 10 mg tablet 10 mg PO QDAY 07/20/25 07/20/25 haloperidol 10 mg tablet 10 mg PO BID 07/20/25 07/20/25 lisinopril 10 mg tablet 10 mg PO QDAY 07/20/25 07/20/25 Previous Rx's ?Medication ?Instructions ?Recorded blood-glucose sensor (FreeStyle #1 ea 10/30/24 Caroline 3 Sensor device) furosemide 20 mg tablet (Lasix) 20 mg PO QAM #30 tabs 03/10/25 atorvastatin 20 mg tablet 20 mg PO HS 30 days #0 tabs 05/31/25 prednisone 20 mg tablet 40 mg (2 x 20 mg) PO QDAY #5 tabs 07/22/25 Allergies Allergy/AdvReac Type Severity Reaction Status Date / Time No Known Allergies Allergy Unverified 02/16/24 08:13 Review of Systems Review of Systems Systems Reviewed: All systems reviewed, normal except as documented Past Medical History Past Medical History CARDIAC: Positive Hypercholesterolemia and Hypertension RESPIRATORY: Positive Chronic Obstructive Pulmonary Disease (COPD), Asthma and Sleep Apnea ENDOCRINE: Positive Diabetes Mellitus Type 2 PSYCHO/SOCIAL: Positive Schizophrenia and Recreational Drug Use OTHER HISTORY: Positive Chicken Pox ED Exam Narrative Physical exam: Generally patient is dyspneic tachypneic with sonorous respirations. He is morbidly obese. Lungs show very distant breath sounds bilaterally which make it very difficult to auscultate crackles due to body habitus, heart tachycardic rate regular rhythm abdomen is obese nontender extremities show 1+ pitting pedal edema bilaterally without asymmetric swelling. Neurologic exam patient is lethargic but arousable was able to get himself up off of the gurney and with [place]. Neurologic exam shows no focal motor deficits. Course Course Course Narrative: CXR was ordered for determining the etiology of shortness of breath. Quality Measures none Orders Category Date Time Status Bedside COVID-19 Antigen Test NOW Care 07/24/25 23:42 Active Bedside Influenza A&B Antigen Test NOW Care 07/24/25 23:42 Completed EKG (ED ONLY) *Do not use* NOW Care 07/24/25 23:42 Completed EKG (ED Only) Stat Exams 07/24/25 23:42 Draft XR chest 1V portable Stat Exams 07/24/25 23:42 Taken Blood Culture (Lab) Stat Lab 07/24/25 23:45 Received CBC Stat Lab 07/24/25 23:47 Completed CMP [Comprehensive Metabolic Panel] Stat Lab 07/24/25 23:47 Completed Lactic Acid [Lactate (Lactic Acid)] Stat Lab 07/24/25 23:47 Completed Troponin I Stat Lab 07/24/25 23:47 Completed VBG [Venous Blood Gas] Stat Lab 07/24/25 23:47 Completed ALBUTEROL RT 0.5ml [Proventil Rt 0.5ml] Med 07/24/25 23:43 Discontinued 10 mg INH X1 ONE Ipratropium [place] Rt Katarina [Atrovent Rt Katarina] Med 07/24/25 23:43 Discontinued 1 mg INH X1 ONE MethylPREDNISolone. [SoluMEDROL Inj] Med 07/24/25 23:43 Discontinued 125 mg IV X1 ONE MethylPREDNISolone.* [SoluMEDROL Inj] Med 07/25/25 00:03 Discontinued 125 mg .ROUTE .STK-MED ONE MethylPREDNISolone.* [SoluMEDROL Inj] Med 07/25/25 00:14 Discontinued 125 mg IVP X1 ONE Sodium Chloride Rt Katarina 0.9% [NS Rt Katarina 0.9%] Med 07/24/25 23:43 Active 3 ml INH PRN PRN Vital Signs Vital signs: Vital Signs Temperature 97.3 F 07/24/25 23:25 Pulse Rate 90 07/24/25 23:25 Respiratory Rate 33 H 07/24/25 23:25 Blood Pressure 131/78 H 07/24/25 23:25 Pulse Oximetry (%) 98 07/24/25 23:25 Oxygen Delivery Method Aerosol Mask 07/24/25 23:25 Oxygen Flow Rate 10 07/24/25 23:25 Shortness of Breath / Dyspnea MDM Narrative MDM Narrative:: Scribe Attestation: Millie Vail am scribing for and in the presence of Dr. Aldridge. Provider Notation: Although this document has been carefully reviewed, there may still be some phonetic and other typographical errors. These errors are purely grammatical due to imperfections in the software program and should not be construed in any way to compromise the substance of the patient's medical care during this visit. Patient immediately was placed on BiPAP 18/8 and 30%. Venous blood gas showed a pH of 7.35 and a pCO2 in the 50s. This does not denote acute retention. Troponin is not elevated. EKG shows normal sinus rhythm at a rate of 88 without ischemic change or ectopy. Chest x-ray shows cardiomegaly with little change from previous without obvious infiltrate. COVID is negative. Flu is negative. Patient received albuterol 10 mg and Atrovent 1 mg Med-Neb treatment as well as Solu-Medrol 125 mg IV. Patient is requiring BiPAP at this time. Patient is lethargic on the BiPAP. I did discuss his case with the hospitalist and the patient will require admission to the hospital for further treatment and evaluation for his respiratory failure with history of obstructive sleep apnea as well as obesity hypoventilation syndrome. Patient data External records reviewed:: [facility] previous records (Reviewed prior ED records from 07/19/25. Patient was seen for Acute respiratory failure with hypoxia and hypercapnia.) and EMS form Clinical information provided by:: EMS Social determinants that could affect healthcare access:: substance use Patient has the following chronic illnesses:: Hypercholesterolemia, Hypertension, Chronic Obstructive Pulmonary Disease (COPD), Asthma, Sleep Apnea, Diabetes Mellitus Type 2, Schizophrenia and Recreational Drug Use How is presenting disease/condition affected by chronic disease/condition?: exacerbated by Evaluation data The following diagnostics were reviewed and interpreted by me:: lab results, radiology exam(s) and EKG tracing(s) Lab and/or radiology exams considered but not ordered:: None Interpretation Summary: RADIOLOGY Chest X-Ray: Pending official radiology report. Medications / Prescriptions Medications or Prescriptions considered but not ordered:: None Medication administrations:: Medication Administration History Sodium Chloride (Sodium Chloride Rt Katarina 0.9% 3 Ml Nebu) 3 ml INH PRN PRN PRN Reason: SOLN Stop: 08/23/25 23:42 Discontinued Medications Albuterol (Albuterol Rt 2.5 Mg/0.5 Ml Nebu) 10 mg INH X1 ONE Stop: 07/24/25 23:44 Last Admin: 07/25/25 00:19 Dose: 10 mg Documented By: CS Ipratropium [place] (Ipratropium Rt 0.5 Mg/ 2.5 Ml Nebu) 1 mg INH X1 ONE Stop: 07/24/25 23:44 Last Admin: 07/25/25 00:20 Dose: 1 mg Documented By: JULIEN Methylprednisolone Sodium Succinate (Methylprednisolone Sod 500 Mg/8 Ml Vial) 125 mg IV X1 ONE Stop: 07/24/25 23:44 Last Admin: 07/25/25 00:16 Dose: Not Given Documented By: EE Non-Admin Reason: Duplicate Medication on eMAR Methylprednisolone Sodium Succinate (Methylprednisolone Sod Succ 62.5 Mg/Ml 2ml Vial) Confirm Administered Dose 125 mg .ROUTE .STK-MED ONE Stop: 07/25/25 00:04 Last Admin: 07/25/25 00:13 Dose: Not Given Documented By: EE Non-Admin Reason: Override Medication Methylprednisolone Sodium Succinate (Methylprednisolone Sod Succ 62.5 Mg/Ml 2ml Vial) 125 mg IVP X1 ONE Stop: 07/25/25 00:15 Last Admin: 07/25/25 00:05 Dose: 125 mg Documented By: EE See above if any Consultations Consultation(s) initiated? (list below): Yes Consultation #1 (Physician, Specialty, Details): Dr. Preciado made aware of the patient?s HPI, PMHx, lab and/or radiology results. Treatment plan was discussed. Will admit for further evaluation and management. Accepts patient for admission. Time: 01:47 Diagnosis Shortness of Breath Differential Diagnosis: congestive heart failure, community acquired pneumonia and pulmonary embolism Most likely diagnosis given after review of the tests above:: none Admission Indicated Admission indicated?: indicated Admission Request Was there a request for admission?: Yes Admission Attestation Admission request attestation: Discussed case with [] from Hospitalist service regarding admission. Discussed patients ED course, exam findings, labs, and radiology results. The Hospitalist [agrees,declines] to accept the patient for admission. Disposition Plan Disposition Plan: Admit Critical Care Time Critical Care Time Critical Care Time: Yes Total Critical Care Time (min.): 35 Attestation: Excluding other billable procedures Discharge Plan Plan Patient Disposition: Admit Acute Care w/in Hospital Prescriptions/Referrals Prescriptions/Med Rec: No Action metformin 500 mg tablet 500 mg PO BID Patient Comments: TAKE 1 TABLET BY MOUTH TWICE A DAY WITH FOOD fluticasone propionate 44 mcg/actuation HFA aerosol inhaler 44 mcg INHALATION PRN PRN (Reason: sob) cholecalciferol (vitamin D3) 50 mcg (2,000 unit) capsule 50 mcg PO DAILY Patient Comments: TAKE 1 TABLET ORALLY EVERY DAY carvedilol 6.25 mg tablet 6.25 mg PO BID gemfibrozil 600 mg tablet 600 mg PO BID Patient Comments: TAKE 1 TABLET BY MOUTH TWICE A DAY 30 MINUTES BEFORE MORNING AND EVENING MEAL loratadine 10 mg tablet 10 mg PO QDAY Patient Comments: TAKE 1 TABLET BY MOUTH EVERY DAY (DME) FreeStyle Caroline 3 Sensor Device See Rx Instructions .Route Qty: 1 0RF Rx Instructions: As directed furosemide [Lasix] 20 mg tablet 20 mg PO QAM Qty: 30 0RF atorvastatin 20 mg tablet 20 mg PO HS 30 Days Qty: 0 0RF Patient Comments: TAKE 1 TABLET BY MOUTH EVERY DAY cetirizine 10 mg tablet 10 mg PO QDAY Patient Comments: TAKE 1 TABLET BY MOUTH EVERY DAY lisinopril 10 mg tablet 10 mg PO QDAY Patient Comments: TAKE 1 TABLET BY MOUTH EVERY DAY benztropine 1 mg tablet 1 mg PO BID Patient Comments: TAKE 1 TABLET BY MOUTH TWICE A DAY azelastine 137 mcg (0.1 %) spray,non-aerosol 2 spray INTRANASAL Q12H benzonatate 200 mg capsule 200 mg PO TID Patient Comments: TAKE 1 CAPSULE BY MOUTH THREE TIMES A DAY NEEDED FOR COUGH haloperidol 10 mg tablet 10 mg PO BID Patient Comments: TAKE 1 TABLET BY MOUTH TWICE A DAY prednisone 20 mg tablet 40 mg PO QDAY Qty: 5 0RF Problem List Clinical Impression: Acute respiratory failure, BHAVESH (obstructive sleep apnea), Obesity hypoventilation syndrome Patient/Caregiver Discharge Instructions Print Language: Occitan Stand Alone Forms: Domitila Award Info., Patient Portal Info Letter
[2025-07-24 23:42] VITALS: BP 149/98; PULSE 99; RESP 30; O2SAT 95
--- NOTE | 2025-07-24 23:42 | XR_ITS ---
Examination: AP chest single view Technique one AP portable upright chest single view Date and time: July 25, 2025 0003 hrs., Comparison 07/21/2025 Indications: Shortness of breath chest pain today. Findings: Mild enlargement cardiac contour taking into account AP projection, portable Mild vascular congestion. No lobar pneumonia or lambert pulmonary edema Intact osseous structures Impression: Mild enlargement cardiac contour with mild vascular congestion
--- NOTE | 2025-07-24 23:42 | EKG_ITS ---
[facility] Test Date: 2025-07-24 Pat Name: CIERRA ROBERTS Department: Room: - Gender: Male [employer]: : 1980 Requested By: Onel Silva Order Number: [id number] Reading MD: Onel Silva Measurements Intervals [place] Rate: 88 P: 85 AK: 181 QRS: 36 QRSD: 74 T: 52 QT: 342 QTc: 415 Interpretive Statements SINUS RHYTHM LOW QRS VOLTAGE IN PRECORDIAL LEADS [QRS DEFLECTION < 1.0 mV IN CHEST LEADS] Compared to ECG 07/19/2025 18:39:09 Sinus arrhythmia no longer present /[id number]
[2025-07-24 23:53] LABS: Base Excess, Venous 4 (-3-3); O2 Saturation, Venous 89 % (96-97); PCO2, Venous 58 mmHg (36-56); PO2, Venous 58 mmHg (15-58); pH, Venous 7.35 (7.33-7.66)
[2025-07-24 23:54] LABS: Lactate (Lactic Acid) 1.1 mMol/L (0.4-2.0)
[2025-07-24 23:57] LABS: Basophils # (Auto) 0.1 Thou/mm3 (0.0-0.2); Basophils % (Auto) 0 % (0-2.5); Eosinophils # (Auto) 0.1 Thou/mm3 (0.0-0.5); Eosinophils % (Auto) 1 % (0-10); Hematocrit 45.9 % (41.0-53.0); Hemoglobin 14.9 g/dL (13.5-16.0); Immature Granulocytes Auto 0.10 Thou/mm3 (0.00-0.00); Lymphocytes # (Auto) 2.2 Thou/mm3 (1.0-4.8); Lymphocytes % (Auto) 15 % (10-50); Mean Corpuscular HGB Conc 32.5 g/dl (31.0-37.0); Mean Corpuscular Hemoglobin 28.5 pg (25.0-35.0); Mean Corpuscular Volume 88 fL (80-100); Monocytes # (Auto) 1.1 Thou/mm3 (0.0-0.8); Monocytes % (Auto) 7 % (0-12); Neutrophils # (Auto) 10.8 Thou/mm3 (1.8-7.7); Neutrophils % (Auto) 75 % (37-80); Nucleated Red Blood Cell # 0.00 Thou/mm3 (0.00-0.00); Nucleated Red Blood Cell % 0 /100 WBC (0); Platelet Count 256 Thou/mm3 (140-440); RDW Standard Deviation 52.6 fL (35.1-43.9); Red Blood Count 5.22 Miln/mm3 (4.50-5.90); White Blood Count 14.3 Thou/mm3 (3.8-10.6)
[2025-07-25] VITALS (81 sets, daily range): BP systolic 106–204; BP diastolic 55–162; PULSE 72–120; RESP 12–37; TEMP 36.3–36.6; O2SAT 84–100; BMI 52.3
[2025-07-25] MEDS: MethylPREDNISolone SOD SUCC 62.5 MG/ML 2ML VIAL 125 MG IVP (00:05)
[2025-07-25 00:14] LABS: Alanine Aminotransferase 80 U/L (10-49); Albumin, Serum 4.1 gm/dL (3.5-5.0); Albumin/Globulin Ratio 1.5 (1.2-2.2); Alkaline Phosphatase 82 U/L (46-116); Anion Gap 9 (7-16); Aspartate Amino Transferase 47 U/L (0-34); BUN/Creatinine Ratio 17 Ratio (12-20); Bilirubin,Total 0.5 mg/dL (0.3-1.2); Blood Urea Nitrogen 15 mg/dL (9-23); Calcium 8.6 mg/dL (8.3-10.6); Calcium (Corrected) 8.6 mg/dL (8.5-10.1); Carbon Dioxide 30.4 mMol/L (20.0-31.0); Chloride 102 mMol/L (98-107); Creatinine (Component) 0.9 mg/dL (0.6-1.3); Estimated Creatinine Clearance 152.2 mL/min (>60); Globulin 2.7 gm/dL (2.3-3.5); Glucose 122 mg/dL (74-106); Osmolality,Calculated 283 (275-295); Potassium 4.8 mMol/L (3.4-5.1); Sodium 141 mMol/L (136-145); Total Protein 6.8 gm/dL (5.7-8.2); Troponin I < 0.002 ng/mL (0.0-0.045); eGFR > 60 See Note
[2025-07-25] MEDS: ALBUTEROL RT 2.5 MG/0.5 ML NEBU 10 MG INH (00:19)
[2025-07-25] MEDS: IPRATROPIUM RT 0.5 MG/ 2.5 ML NEBU 1 MG INH (00:20)
[2025-07-25 02:25] LABS: Base Excess 3 (-3-3); HCO3 32 mEq/L (20-26); Inspired Oxygen, FIO2 30 %; O2 Saturation 93 % (91-98); PCO2 64 mmHg (32.0-48.0); PO2 71 mmHg (83-108); pH, Arterial 7.31 (7.35-7.45)
[2025-07-25 02:28] LABS: Allen Test Performed/OK; Puncture Site Right Radial
[2025-07-25] MEDS: ETOMIDATE INJ 2 MG/ML VIAL 10 ML 40 MG IV (02:48)
[2025-07-25] MEDS: ROCURONIUM INJ 10 MG/ML VIAL 10 ML 150 MG IV (02:49)
--- NOTE | 2025-07-25 02:51 | PC.NURSE ---
positive color change at 0251 23 inches at teeth and 8 polish et tube
--- NOTE | 2025-07-25 02:53 | XR_ITS ---
Examination: AP chest single view Technique one AP portable semiupright chest single view Date and time: July 25, 2025 0255 hrs., Comparison 07/25/2025 at 0003 hrs. Indications: Hypoxic respiratory failure, postintubation, post orogastric tube placement Findings: Mild heart failure Mild retrocardiac contour with prominent vascular congestion Pneumonia left base, blunting of both costophrenic angles Endotracheal tube tip 7.2 cm above jennifer. The orogastric tube is in the stomach, the tip in satisfactory position Impression: Prominent pneumonia left base Mild heart failure appearance Endotracheal tube tip 7.2 cm above jennifer Orogastric tube in the stomach satisfactory position
--- NOTE | 2025-07-25 02:54 | PD.RESPROC ---
PROCEDURES: Procedure Date / Time 07/25/25 0254 Intubation Indication(s): acute Resp Failure Informed consent obtained: implied Time out done, and the following verified: correct patient, procedure and patient position Sedative: etomidate Paralytic: rocuronium Laryngoscope: fiber optic video scope ET tube size: 8 ET tube uncuffed: Yes Tube secured depth (cm): 23 Tube placement confirmation: visualized tube passing through cords Patient tolerated procedure: no complications Additional comments: Patient was failing BiPAP. He is becoming more lethargic. I supervised the intubation using the glide a scope of this patient done by the hospitalist. Patient was intubated with a first attempt with an 8.0 endotracheal tube placed at 22 cm at the lips with equal breath sounds bilaterally and good color change with capnography. The patient was sedated with 40 mg of etomidate as well as 150 mg of rocuronium IV. Ventilator settings were given respiratory therapy. Follow-up chest x-ray is pending. Patient was sedated postintubation with propofol and fentanyl.
[2025-07-25] MEDS: SODIUM CHLORIDE RT 10% 15 ML NEBU 5 ML INH (03:01)
[2025-07-25] MEDS: PROPOFOL 1,000 MG IVPB 1,000 MG/100 ML VIAL 4.627 MG IV ×2 (03:06→11:39)
[2025-07-25] MEDS: fentaNYL 2,500 MCG/250 ML BAG 2,500 MCG/250 ML BAG 20 MCG IV (03:09)
--- NOTE | 2025-07-25 03:27 | PD.RESHP ---
Documentation for date of: 07/25/25 [facility] History of Present Illness History of present illness: The patient is a 44-year-old male with a medical history of morbid obesity, schizophrenia, hypertension, type 2 diabetes mellitus, obstructive sleep apnea , obesity hypoventilation syndrome (on 2 L oxygen at baseline), COPD, and a recent history of COVID-pneumonia, for which he was discharged from the hospital. He presents to the emergency department with worsening shortness of breath. History was primarily obtained from the ED sign-out and chart review. Upon presentation, the patient was hypoxic. After receiving a breathing treatment, his oxygen saturation significantly improved, but he remained tachypneic and appeared to be in acute distress. The patient was placed on BiPAP but did not tolerate it well and progressively worsened, including a decline in neurological status. He became lethargic, though arousable. Physical exam revealed distant breath sounds bilaterally, though auscultation was challenging due to his body habitus. According to the ED sign-out, the patient denied chest pain, headache, vision changes, or any other symptoms apart from dyspnea. Initial labs (CBC and CMP) were unremarkable. Chest X-ray revealed pneumonia, and a COVID-19 bedside test was positive. A VBG showed a pH of 7.36, pCO2 of 58, and an O2 saturation of 89%. Despite being placed on BiPAP, the patient?s mental status continued to deteriorate, and he became more tachypneic, using accessory muscles to breathe. An ABG revealed worsening respiratory status: pH 7.31, pCO2 64, pO2 71, and bicarbonate 32. Given the worsening condition, the decision was made to intubate for airway protection and increasing fatigue. The patient was subsequently admitted to the ICU for [id number] hypoxic hypercapnic respiratory failure, secondary to a COPD exacerbation in the setting of COVID-pneumonia. Review of Systems Review of Systems ROS Unobtainable: unobtainable due to mental status and due to endotracheal tube Past Medical History Past Medical History CARDIAC: Positive Hypercholesterolemia and Hypertension RESPIRATORY: Positive Chronic Obstructive Pulmonary Disease (COPD), Asthma and Sleep Apnea ENDOCRINE: Positive Diabetes Mellitus Type 2 PSYCHO/SOCIAL: Positive Schizophrenia and Recreational Drug Use OTHER HISTORY: Positive Chicken Pox Exam Vital Signs Temp Pulse Resp BP Pulse Ox O2 Del Method O2 Flow Rate 97.3 F 95 12 126/76 93 L BiPAP 10 07/24/25 23:25 07/25/25 03:20 07/25/25 01:22 07/25/25 03:20 07/25/25 03:20 07/25/25 01:22 07/24/25 23:25 FiO2 100 07/25/25 03:20 Narrative Exam GENERAL: Morbidly obese, sedated, mechanically ventilated HEENT: Head AT/ NC. Mucous membranes moist. NECK: Supple, no lymphadenopathy, no carotid bruits. CARDIOVASCULAR: Tachycardic,. Normal S1/S2, No m/r/g. 1+ pitting edema in bilateral lower extremities RESPIRATORY: Bilateral mild wheezing and rhonchi on auscultation GASTROINTESTINAL: Abdomen soft, no palpable masses. Bowel sounds present in all 4 quadrants. MUSCULOSKELETAL:? No cyanosis , no visible joint swelling. NEUROLOGICAL: Unable to assess as patient is currently sedated on mechanical ventilation INTEGUMENTARY: No obvious rashes, no jaundice, normal turgor. Results: Labs 07/25/25 03:55 07/25/25 03:55 Labs: Short CBC 07/24/25 Range/Units 23:47 WBC 14.3 H (3.8-10.6) Thou/mm3 Hgb 14.9 (13.5-16.0) g/dL Hct 45.9 (41.0-53.0) % Plt Count 256 D (140-440) Thou/mm3 BMP 07/24/25 23:47 Sodium 141 Potassium 4.8 D Chloride 102 Carbon Dioxide 30.4 BUN 15 Creatinine 0.9 Glucose 122 H Calcium 8.6 Cardiac Enzymes 07/24/25 Range/Units 23:47 Troponin I < 0.002 (0.0-0.045) ng/mL Liver Function 07/24/25 Range/Units 23:47 Total Bilirubin 0.5 (0.3-1.2) mg/dL AST 47 H (0-34) U/L ALT 80 H (10-49) U/L Alkaline Phosphatase 82 (46-116) U/L Albumin 4.1 (3.5-5.0) gm/dL ABG Interpretation ABG results: 07/24/25 07/25/25 23:47 02:20 ABG pH 7.31 L ABG pCO2 64 H ABG pO2 71 L ABG HCO3 32 H ABG O2 Saturation 93 ABG Base Excess 3 VBG pH 7.35 VBG pCO2 58 H D VBG pO2 58 VBG Base Excess 4 H Quality Measures Quality Measures none Medications Home Medications and Allergies Home Medications ?Medication ?Instructions ?Recorded ?Confirmed ?Type carvedilol 6.25 mg tablet 6.25 mg PO BID 02/15/24 07/20/25 History gemfibrozil 600 mg tablet 600 mg PO BID 02/15/24 07/20/25 History loratadine 10 mg tablet 10 mg PO QDAY 02/15/24 07/20/25 History cholecalciferol (vitamin D3) 50 50 mcg PO DAILY 12/03/24 07/20/25 History mcg (2,000 unit) capsule fluticasone propionate 44 44 mcg inhalation PRN PRN sob 12/03/24 07/20/25 History mcg/actuation HFA aerosol inhaler metformin 500 mg tablet 500 mg PO BID 12/03/24 07/20/25 History azelastine 137 mcg (0.1 %) nasal 2 spray intranasal Q12H 07/20/25 07/20/25 History spray benzonatate 200 mg capsule 200 mg PO TID 07/20/25 07/20/25 History benztropine 1 mg tablet 1 mg PO BID 07/20/25 07/20/25 History cetirizine 10 mg tablet 10 mg PO QDAY 07/20/25 07/20/25 History haloperidol 10 mg tablet 10 mg PO BID 07/20/25 07/20/25 History lisinopril 10 mg tablet 10 mg PO QDAY 07/20/25 07/20/25 History Allergies Allergy/AdvReac Type Severity Reaction Status Date / Time No Known Allergies Allergy Unverified 02/16/24 08:13 Visit Medications Acetaminophen (Acetaminophen 325 Mg Tablet) 650 mg PO Q6H PRN PRN Reason: Fever >101.5 Stop: 08/24/25 02:46 Albuterol/Ipratropium (Albuterol/Ipratropium (Duoneb) Rt Katarina 3 Ml Nebu) 3 ml INH Q4HRRT JEANNE Stop: 08/24/25 02:59 Heparin Sodium (Porcine) (Heparin Sod Inj 5000 Unit/Ml Vial) 5,000 unit SC Q8HR JEANNE Stop: 08/08/25 05:59 Propofol (Diprivan Ivpb) 1,000 mg in 100 mls @ 4.627 mls/hr IV .[id number] PRN; Protocol PRN Reason: PER PROTOCOL Stop: 08/24/25 02:32 Last Admin: 07/25/25 03:06 Dose: 5 mcg/kg/min, 4.627 mls/hr Fentanyl Citrate (Sublimaze Inj 2,500 Mcg/250 Ml Bag) 2,500 mcg in 250 mls @ 2.5 mls/hr IV .Q24H PRN; Protocol PRN Reason: PER PROTOCOL Stop: 07/30/25 02:32 Last Admin: 07/25/25 03:09 Dose: 200 mcg/hr, 20 mls/hr Methylprednisolone Sodium Succinate (Methylprednisolone Sod Succ 40 Mg/Ml Vial) 60 mg IVP QDAY JEANNE Stop: 08/01/25 08:59 Ondansetron HCl (Ondansetron Inj 2 Mg/Ml Inj 2 Ml) 4 mg IVP Q6H PRN; Protocol PRN Reason: NAUSEA OR VOMITING Stop: 08/24/25 02:46 Sodium Chloride (Sodium Chloride Rt Katarina 0.9% 3 Ml Nebu) 3 ml INH PRN PRN PRN Reason: SOLN Stop: 08/23/25 23:42 Discontinued Medications Albuterol (Albuterol Rt 2.5 Mg/0.5 Ml Nebu) 10 mg INH X1 ONE Stop: 07/24/25 23:44 Last Admin: 07/25/25 00:19 Dose: 10 mg Etomidate (Etomidate Inj 2 Mg/Ml Vial 10 Ml) 40 mg IV X1 ONE Stop: 07/25/25 02:32 Last Admin: 07/25/25 02:48 Dose: 40 mg Ipratropium Jewell (Ipratropium Rt 0.5 Mg/ 2.5 Ml Nebu) 1 mg INH X1 ONE Stop: 07/24/25 23:44 Last Admin: 07/25/25 00:20 Dose: 1 mg Methylprednisolone Sodium Succinate (Methylprednisolone Sod 500 Mg/8 Ml Vial) 125 mg IV X1 ONE Stop: 07/24/25 23:44 Last Admin: 07/25/25 00:16 Dose: Not Given Methylprednisolone Sodium Succinate (Methylprednisolone Sod Succ 62.5 Mg/Ml 2ml Vial) 125 mg IVP X1 ONE Stop: 07/25/25 00:15 Last Admin: 07/25/25 00:05 Dose: 125 mg Rocuronium Jewell (Rocuronium Inj 10 Mg/Ml Vial 10 Ml) 150 mg IV X1 ONE Stop: 07/25/25 02:32 Last Admin: 07/25/25 02:49 Dose: 150 mg Sodium Chloride (Sodium Chloride Rt 10% 15 Ml Nebu) 5 ml INH X1 ONE Stop: 07/25/25 03:02 Assessment & Plan Plan Patient is a 44 years old male with PMH of morbid obesity, schizophrenia, hypertension, T2DM, BHAVESH on CPAP, and obesity hypoventilation syndrome on 2 L baseline O2 who was initially was admitted to ICU due to acute on chronic hypoxic hypercapnic respiratory failure due to COPD exacerbation in the setting of COVID-pneumonia requiring intubation for airway protection 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 #Mechanically sedated and intubated -Continue sedation and analgesia as needed to ensure patient comfort and tolerance of the ventilator -Continue monitoring neurological status -Daily SAT #Schizophrenia. Per chart review patient is on haloperidol and aripiprazole at home -Resume home medication after medication reconciliation [facility] # History hypertension. ECHO 03/2025: The transthoracic study is normal by two-dimensional, color flow imaging and Doppler interrogation. Normal left ventricular size and function. Normal right ventricle function. Approximate ejection fraction is 60%. Trace mitral and trace tricuspid regurgitation No wall motion abnormalities Left atrial diameter normal, no diastolic dysfunction noted per se in echo. At home on Coreg and Lasix Currently patient is normotensive -Strict intake and output, daily weight -Consider repeat echo outpatient -BP monitoring, resume home med if needed -follow up with Echo, asses fluid status, resume lasix if needed. Respiratory: #Acute on chronic hypoxic hypercapnic respiratory failure 12/09: COPD exacerbation in the setting of COVID #COPD Exacerbation #BHAVESH/OHS. #CAP. Patient is on home CPAP but compliance is unknown. Patient had multiple admissions due to AHRF, was intubated in the past Patient presented with SOB, CXR showed base pneumonia. Failed BiPAP, follow up ABG showed worsening of hypercapnia and hypoxia. Acute encephalopathy and inability to protect airways. Already completed remdesivir treatment on previous admission -continue mechanical ventilation -Continue sedation and analgesia: Propofol and fentanyl drip for comfort and ventilator synchronization -Monitor ABG frequently for assessment of ventilation and oxygenation status, (permissive hypercapnia) -Weaning protocol will be started once patient shows signs of improvement respiratory Status and stability -continue scheduled DuoNeb Q4H. -continue methylprednisolone 40 mg IV Qday -empiric antibiotics (rocephin and azithro) -Follow-up blood culture -Follow sputum culture -Follow MRSA nares Gastrointestinal: #Elevated LFTs. Mildly elevated AST/ALT and alk phos, consistent with prior readings. No abdominal pain reported. - monitor with daily labs. Renal: No active problem. Endocrine: #Metabolic syndrome. #Type 2 diabetes mellitus. Patient has metabolic syndrome, likely due to poor diet and antipsychotics. BMI 54. History of diabetes, hyperlipidemia (controlled with meds), morbid obesity. Plan: - continue on SSI. - glucose checks Q6H. - consider gastric bypass surgery and semaglutide for weight loss which may help with current episodes of acute hypercapnic respiratory failure. - continue home atorvastatin and gemfibrozil. Infectious Disease #Pneumonia #Covid 19 completed Ramdesvir course on pervious admission See pulmonary system for details Integumentary Stable, no acute problems DVT prophylaxis: heparin GI prophylaxis: PPI IV Diet: N.p.o. Lines: Peripheral IV Code status: Full code Harden: condom cath Patient care was discussed with attending physician Dr. William Rosenthal MD PGY-3 I have carefully reviewed this document. Due to imperfections in the voice software, there could be grammatical errors including phonetic/typographic errors. This in no way compromises the medical care the patient is receiving Attending Provider Attestation/Addendum After examination of the patient and review of the clinical data I feel that this patient needs admission to the hospital for further treatment/evaluation. TOTAL CC TIME: 60 MIN TOTAL TIME: 60 Minutes of direct medical management and planning of care. I Louisa Perez MD, attest that I was physically present for sands portions of evaluation, and examined patient, labs and imagings and plan of care were discussed with IM residents team, and I agree with the findings and plans documented above.
--- NOTE | 2025-07-25 04:00 | PC.NURSE ---
CHARGE NURSE NOTIFIED THAT ICU DOES NOT WANT TO THE PT RIGHT NOW. THEY ARE SAYING TO KEEP HIM HERE UNTIL THEY ARE READY
[2025-07-25 04:19] LABS: Base Excess 3 (-3-3); HCO3 32 mEq/L (20-26); O2 Saturation 84 % (91-98); PCO2 67 mmHg (32.0-48.0); pH, Arterial 7.29 (7.35-7.45)
[2025-07-25 04:21] LABS: Basophils # (Auto) 0.0 Thou/mm3 (0.0-0.2); Basophils % (Auto) 0 % (0-2.5); Eosinophils # (Auto) 0.0 Thou/mm3 (0.0-0.5); Eosinophils % (Auto) 0 % (0-10); Hematocrit 46.2 % (41.0-53.0); Hemoglobin 14.4 g/dL (13.5-16.0); Immature Granulocytes Auto 0.10 Thou/mm3 (0.00-0.00); Lymphocytes # (Auto) 0.8 Thou/mm3 (1.0-4.8); Lymphocytes % (Auto) 6 % (10-50); Mean Corpuscular HGB Conc 31.2 g/dl (31.0-37.0); Mean Corpuscular Hemoglobin 27.8 pg (25.0-35.0); Mean Corpuscular Volume 89 fL (80-100); Monocytes # (Auto) 0.3 Thou/mm3 (0.0-0.8); Monocytes % (Auto) 2 % (0-12); Neutrophils # (Auto) 12.3 Thou/mm3 (1.8-7.7); Neutrophils % (Auto) 91 % (37-80); Nucleated Red Blood Cell # 0.00 Thou/mm3 (0.00-0.00); Nucleated Red Blood Cell % 0 /100 WBC (0); Platelet Count 236 Thou/mm3 (140-440); RDW Standard Deviation 53.3 fL (35.1-43.9); Red Blood Count 5.18 Miln/mm3 (4.50-5.90); White Blood Count 13.6 Thou/mm3 (3.8-10.6)
[2025-07-25 04:23] LABS: PO2 52 mmHg (83-108)
[2025-07-25 04:24] LABS: Allen Test Performed/OK; Inspired Oxygen, FIO2 100 %; Puncture Site Right Radial
--- NOTE | 2025-07-25 04:36 | ECHO_ITS ---
Transthoracic Echo Report Ht (in): 68 Wt (lb): 340 Exam Location: Echo Lab Status: Inpatient Level Vial Inspector And Tester: Ana Verma Indications: Procedure Performed: BP: 121 / 69 HR: 99 MEASUREMENTS (Male / Female) Normal Values 2D ECHO LV Diastolic Diameter PLAX 4.4 cm 4.2 - 5.9 / 3.9 - 5.3 cm LV Systolic Diameter PLAX 2.7 cm IVS Diastolic Thickness 1.1 cm 0.6 - 1.0 / 0.6 - 0.9 cm LVPW Diastolic Thickness 1.2 cm 0.6 - 1.0 / 0.6 - 0.9 cm LV Relative Wall Thickness 0.5 LVOT Diameter 2.1 cm Ascending Aorta Diameter 3.0 cm M-MODE AV Cusp Separation MM 1.8 cm DOPPLER AV Peak Velocity 128.0 cm/s AV Peak Gradient 6.6 mmHg AV Mean Gradient 4.0 mmHg AV Velocity Time Integral 24.1 cm LVOT Peak Velocity 128.0 cm/s LVOT Peak Gradient 6.6 mmHg LVOT Velocity Time Integral 28.4 cm LVOT Cardiac Index 3466.1 cm?/min?m? AV Area Cont Eq vti 4.1 cm? AV Area Cont Eq pk 3.5 cm? MV Area PHT 8.1 cm? Mitral E Point Velocity 107.0 cm/s Mitral A Point Velocity 113.0 cm/s Mitral E to A Ratio 0.9 LV E' Lateral Velocity 5.8 cm/s Mitral E to LV E' Lateral Ratio 18.5 LV E' Septal Velocity 12.9 cm/s Mitral E to LV E' Septal Ratio 8.3 TR Peak Velocity 148.0 cm/s TR Peak Gradient 8.8 mmHg PV Peak Velocity 117.0 cm/s PV Peak Gradient 5.5 mmHg FINDINGS Left Ventricle Normal left ventricular size, wall thickness, systolic function with no obvious regional wall motion abnormalities. Normal left ventricular diastolic filling pattern for age. The ejection fraction is visually estimated at 65 %. Right Ventricle The right ventricle is normal in size and systolic function. Left Atrium The left atrium is normal by two-dimensional, color flow and Doppler imaging with no structural abnormalities, no thrombus formation present. Right Atrium The right atrium is normal by two-dimensional imaging, color flow and Doppler imaging with no structural abnormalities, no thrombus formation present. Atrial Septum The interatrial septum appears normal with no evidence of a shunt. Aorta The aorta is normal by two-dimensional, color flow and Doppler interrogation. Mitral Valve The mitral valve is normal by two-dimensional, color flow and Doppler interrogation. Trace mitral regurgitation. Aortic Valve The aortic valve is trileaflet and normal by two-dimensional, color flow and Doppler interrogation. There is no significant aortic valve regurgitation. Tricuspid Valve The tricuspid valve is normal by two-dimensional, color flow and Doppler interrogation. There is trace tricuspid valve regurgitation. Pulmonic Valve The pulmonic valve is not well visualized. There is no significant pulmonic valve regurgitation. Vessels The pulmonary artery appears normal. The inferior vena cava pulmonary and hepatic veins appear normal. Pericardium The pericardium is normal by two-dimensional imaging. There is no significant pericardial effusion. Other Findings TDS due to patients weight and intubated. CONCLUSIONS TDS due to patients weight and intubated. Indication: assess baseline, concern for overload Normal left ventricular size and function. Estimated EF 65%. Normal Right ventricular size and function. Trace MR and TR Mi Pugh (Electronically Signed) Final Date: 25 July 2025 15:11
[2025-07-25 04:39] LABS: Glucose Estimated Average 143 mg/dL (80-131); Hemoglobin A1C 6.6 % Hgb (4.8-6.0)
[2025-07-25 04:59] LABS: Alanine Aminotransferase 82 U/L (10-49); Albumin, Serum 4.0 gm/dL (3.5-5.0); Albumin/Globulin Ratio 1.5 (1.2-2.2); Alkaline Phosphatase 80 U/L (46-116); Anion Gap 7 (7-16); Aspartate Amino Transferase 41 U/L (0-34); BUN/Creatinine Ratio 19 Ratio (12-20); Bilirubin,Total 0.7 mg/dL (0.3-1.2); Blood Urea Nitrogen 15 mg/dL (9-23); Calcium 8.3 mg/dL (8.3-10.6); Calcium (Corrected) 8.3 mg/dL (8.5-10.1); Carbon Dioxide 30.3 mMol/L (20.0-31.0); Cardiac Risk Estimate 2.3 RATIO (4.0-6.7); Chloride 103 mMol/L (98-107); Cholesterol 118 mg/dL (132-200); Creatinine (Component) 0.8 mg/dL (0.6-1.3); Estimated Creatinine Clearance 171.2 mL/min (>60); Globulin 2.6 gm/dL (2.3-3.5); Glucose 151 mg/dL (74-106); HDL Cholesterol 51 mg/dL (40-60); LDL Cholesterol,Calculated 52 mg/dL (0-130); Magnesium 2.0 mg/dL (1.6-2.6); Osmolality,Calculated 283 (275-295); Potassium 5.0 mMol/L (3.4-5.1); Procalcitonin 0.07 ng/ml (0.0-0.49); Sodium 140 mMol/L (136-145); Total Protein 6.6 gm/dL (5.7-8.2); Triglycerides 75 mg/dL (30-150); eGFR > 60 See Note
[2025-07-25 05:19] LABS: Base Excess 3 (-3-3); HCO3 32 mEq/L (20-26); Inspired Oxygen, FIO2 100 %; O2 Saturation 93 % (91-98); PCO2 67 mmHg (32.0-48.0); PO2 71 mmHg (83-108); pH, Arterial 7.29 (7.35-7.45)
[2025-07-25 05:31] LABS: Puncture Site Right Radial
[2025-07-25] MEDS: AZITHROMYCIN INJ 500 MG in SODIUM CHLORIDE 0.9% 250 ML 250 ML 250 MG IV (06:20)
[2025-07-25] MEDS: HEPARIN SOD INJ 5000 UNIT/ML VIAL SC (06:23)
[2025-07-25] MEDS: INSULIN LISPRO (AdmeLOG) 1 UNIT/0.01 ML UNIT SC ×3 (06:56→17:54)
[2025-07-25 07:30] LABS: Base Excess 3 (-3-3); HCO3 31 mEq/L (20-26); Inspired Oxygen, FIO2 100 %; O2 Saturation 96 % (91-98); PCO2 62 mmHg (32.0-48.0); PO2 83 mmHg (83-108); pH, Arterial 7.31 (7.35-7.45)
[2025-07-25 07:31] LABS: Allen Test Performed/OK; Puncture Site Right Radial
[2025-07-25] MEDS: ALBUTEROL/IPRATROPIUM (Duoneb) RT SOL 3 ML NEBU INH ×4 (07:47→22:12)
[2025-07-25] MEDS: cefTRIAXone/D5w 1gm IV premix 1 GM/50 ML BAG IV (07:59)
[2025-07-25] MEDS: ENOXAPARIN SOD INJ 60 MG/0.6 ML SYRINGE 40 MG SC ×2 (09:27→20:51)
--- NOTE | 2025-07-25 09:30 | ESPR_ITS ---
<Statement entered by Teodoro Daniel MD - 07/25/25 13:19> TOTAL CC TIME: 45 MIN I saw and evaluated the patient. I reviewed the resident?s note and agree with findings and plan as documented in the resident?s note. Upon my evaluation, this patient had a high probability of imminent or life- threatening deterioration due to acute on chronic hypoxic and hypercapnic respiratory failure, which required my direct attention, intervention, and personal management. This time is exclusive of time spent on procedures, which are documented separately if performed. Chart reviewed, patient seen with the ICU team this morning performing exceptionally well on pressure support ventilation 06/11. Chest x-ray consistent with chronic low lung volumes and left lower lobe atelectasis versus pneumonia with consolidation. Sputum cultures pending. Patient is awake alert and oriented requesting the endotracheal tube to be removed. After at least 1 hour on a spontaneous breathing trial venous pH came back at 7.31(estimated arterial 7.35), Patient was extubated and subsequent extubation developed hypoxia as well as respiratory distress with tachypnea. Attempts at noninvasive positive pressure ventilation failed to resolve the patient's respiratory distress. Patient denies alcohol withdrawals. Therefore the patient had to be reintubated with a 7.5 endotracheal tube Continue current sedation, await final culture results and continue empiric antibiotics. Check NIF prior to next extubation attempt Documentation for date of: 07/25/25 Subjective Subjective Interval history: The patient is a 44-year-old male with a medical history of morbid obesity, schizophrenia, hypertension, type 2 diabetes mellitus, obstructive sleep apnea , obesity hypoventilation syndrome (on 2 L oxygen at baseline), COPD, and a recent history of COVID-pneumonia, for which he was discharged from the hospital. He presents to the emergency department with worsening shortness of breath. History was primarily obtained from the ED sign-out and chart review. Upon presentation, the patient was hypoxic. After receiving a breathing treatment, his oxygen saturation significantly improved, but he remained tachypneic and appeared to be in acute distress. The patient was placed on BiPAP but did not tolerate it well and progressively worsened, including a decline in neurological status. He became lethargic, though arousable. Physical exam revealed distant breath sounds bilaterally, though auscultation was challenging due to his body habitus. According to the ED sign-out, the patient denied chest pain, headache, vision changes, or any other symptoms apart from dyspnea. Initial labs (CBC and CMP) were unremarkable. Chest X-ray revealed pneumonia, and a COVID-19 bedside test was positive. A VBG showed a pH of 7.36, pCO2 of 58, and an O2 saturation of 89%. Despite being placed on BiPAP, the patient?s mental status continued to deteriorate, and he became more tachypneic, using accessory muscles to breathe. An ABG revealed worsening respiratory status: pH 7.31, pCO2 64, pO2 71, and bicarbonate 32. Given the worsening condition, the decision was made to intubate for airway protection. The patient was subsequently admitted to the ICU for [id number] hypoxic hypercapnic respiratory failure, secondary to a COPD exacerbation in the setting of COVID-pneumonia. 07/25/2025: Patient had no events overnight. 68.3, output of 450 cc, balance - 389 cc. Patient on low-dose fentanyl and propofol at RASS of 0. He follows commands appropriately and currently watching Television. End-tidal CO2 54 while on AC VC. Chest x-ray showed bilateral reticular opacities, poor respiratory effort with reduced lung volumes, left base consolidation with blunting of costophrenic angle. WBC 13.6, K5, BUN 15, CR 0.8, magnesium 2, AST 41, ALT 82, HbA1c 6.6%. Will attempt SAT and SBT. Once patient tolerates SBT will switch to Pressure support and repeat a blood gas. Resumed his home medication via OG. Exam Vital Signs Temp Pulse Resp BP Pulse Ox O2 Del Method O2 Flow Rate 97.6 F 95 20 150/84 H 97 Room Air 10 07/25/25 04:30 07/25/25 09:27 07/25/25 07:47 07/25/25 09:27 07/25/25 07:47 07/25/25 03:43 07/24/25 23:25 FiO2 100 07/25/25 07:47 Narrative Exam Constitutional Alert, oriented, intubated. Spontaneous mode, PS 5, PEEP 8, FiO2 35% HEENT Vision grossly intact. Patent nares. Trachea midline Respiratory Chest normal on inspection and reduced air entry in lower Lung bradley. No wheezing Cardiovascular S1 and S2 audible, RRR. No murmurs carotid bruit. No gross JVD. Abdominal Soft, obese and non tender to palpation in all quadrants. BS + Genitourinary No bladder tenderness, no flank pain. Normal to palpation Musculoskeletal Extremities tone within normal limits. No LE edema. Neurological CN II - XII grossly intact. Extremity motor and sensation grossly intact. Skin Warm, dry and intact. No apparent lesions. Psychiatric Patient has good affect, is cooperative Objective Labs 07/25/25 03:55 07/25/25 03:55 Labs: Laboratory Results - last 24 hr 07/24/25 07/25/25 07/25/25 23:47 02:20 03:55 WBC 14.3 H 13.6 H RBC 5.22 5.18 Hgb 14.9 14.4 Hct 45.9 46.2 MCV 88 89 MCH 28.5 27.8 MCHC 32.5 31.2 RDW Std Deviation 52.6 H 53.3 H Plt Count 256 D 236 Neut % (Auto) 75 91 H Lymph % (Auto) 15 6 L Smith % (Auto) 7 2 Eos % (Auto) 1 0 Baso % (Auto) 0 0 Neut # (Auto) 10.8 H 12.3 H Lymph # (Auto) 2.2 0.8 L Smith # (Auto) 1.1 H 0.3 Eos # (Auto) 0.1 0.0 Baso # (Auto) 0.1 0.0 Immature Gran # (Auto) 0.10 H 0.10 H Absolute Nucleated RBC 0.00 0.00 Immature Gran % 1 H 1 H Nucleated RBC % 0 0 Puncture Site Right Radial ABG pH 7.31 L ABG pCO2 64 H ABG pO2 71 L ABG HCO3 32 H ABG O2 Saturation 93 ABG Base Excess 3 VBG pH 7.35 VBG pCO2 58 H D VBG pO2 58 VBG O2 Sat (Daryl) 89 L VBG Base Excess 4 H FiO2 30 Sodium 141 140 Potassium 4.8 D 5.0 Chloride 102 103 Carbon Dioxide 30.4 30.3 Anion Gap 9 7 BUN 15 15 Creatinine 0.9 0.8 Estim Creat Clear Calc 152.2 171.2 eGFR > 60 > 60 BUN/Creatinine Ratio 17 19 Glucose [address] Glu mg/dL 143 H Hemoglobin A1c 6.6 H Calculated Osmolality 283 283 Lactic Acid 1.1 Calcium 8.6 8.3 Corrected Calcium 8.6 8.3 L Magnesium 2.0 Total Bilirubin 0.5 0.7 AST 47 H 41 H ALT 80 H 82 H Alkaline Phosphatase 82 80 Troponin I < 0.002 Total Protein 6.8 6.6 Albumin 4.1 4.0 Globulin 2.7 2.6 Albumin/Globulin Ratio 1.5 1.5 Triglycerides 75 Cholesterol 118 L LDL Cholesterol, Calc 52 HDL Cholesterol 51 Cholesterol/HDL Ratio 2.3 L Procalcitonin 0.07 07/25/25 07/25/25 07/25/25 03:55 04:08 05:08 WBC RBC Hgb Hct MCV MCH MCHC RDW Std Deviation Plt Count Neut % (Auto) Lymph % (Auto) Smith % (Auto) Eos % (Auto) Baso % (Auto) Neut # (Auto) Lymph # (Auto) Smith # (Auto) Eos # (Auto) Baso # (Auto) Immature Gran # (Auto) Absolute Nucleated RBC Immature Gran % Nucleated RBC % Puncture Site Right Radial Right Radial ABG pH 7.29 L 7.29 L ABG pCO2 67 H 67 H ABG pO2 52 L* 71 L ABG HCO3 32 H 32 H ABG O2 Saturation 84 L 93 ABG Base Excess 3 3 VBG pH VBG pCO2 VBG pO2 VBG O2 Sat (Daryl) VBG Base Excess FiO2 100 100 Sodium Potassium Chloride Carbon Dioxide Anion Gap BUN Creatinine Estim Creat Clear Calc eGFR BUN/Creatinine Ratio Glucose Estimated Ave Glu mg/dL Hemoglobin A1c Calculated Osmolality Lactic Acid Calcium Corrected Calcium Magnesium Total Bilirubin AST ALT Alkaline Phosphatase Troponin I Total Protein Albumin Globulin Albumin/Globulin Ratio Triglycerides Cholesterol LDL Cholesterol, Calc HDL Cholesterol Cholesterol/HDL Ratio Procalcitonin Cancelled 07/25/25 07:18 WBC RBC Hgb Hct MCV MCH MCHC RDW Std Deviation Plt Count Neut % (Auto) Lymph % (Auto) Smith % (Auto) Eos % (Auto) Baso % (Auto) Neut # (Auto) Lymph # (Auto) Smith # (Auto) Eos # (Auto) Baso # (Auto) Immature Gran # (Auto) Absolute Nucleated RBC Immature Gran % Nucleated RBC % Puncture Site Right Radial ABG pH 7.31 L ABG pCO2 62 H ABG pO2 83 ABG HCO3 31 H ABG O2 Saturation 96 ABG Base Excess 3 VBG pH VBG pCO2 VBG pO2 VBG O2 Sat (Daryl) VBG Base Excess FiO2 100 Sodium Potassium Chloride Carbon Dioxide Anion Gap BUN Creatinine Estim Creat Clear Calc eGFR BUN/Creatinine Ratio Glucose Estimated Ave Glu mg/dL Hemoglobin A1c Calculated Osmolality Lactic Acid Calcium Corrected Calcium Magnesium Total Bilirubin AST ALT Alkaline Phosphatase Troponin I Total Protein Albumin Globulin Albumin/Globulin Ratio Triglycerides Cholesterol LDL Cholesterol, Calc HDL Cholesterol Cholesterol/HDL Ratio Procalcitonin ABG Interpretation ABG results: 07/24/25 07/25/25 07/25/25 23:47 02:20 04:08 ABG pH 7.31 L 7.29 L ABG pCO2 64 H 67 H ABG pO2 71 L 52 L* ABG HCO3 32 H 32 H ABG O2 Saturation 93 84 L ABG Base Excess 3 3 VBG pH 7.35 VBG pCO2 58 H D VBG pO2 58 VBG Base Excess 4 H 07/25/25 07/25/25 05:08 07:18 ABG pH 7.29 L 7.31 L ABG pCO2 67 H 62 H ABG pO2 71 L 83 ABG HCO3 32 H 31 H ABG O2 Saturation 93 96 ABG Base Excess 3 3 VBG pH VBG pCO2 VBG pO2 VBG Base Excess Quality Measures Quality Measures none Assessment & Plan Assessment Current Active Medications: Generic Name Dose Route Start Last Admin Trade Name Freq PRN Reason Stop Dose Admin Acetaminophen 650 mg 07/25/25 02:47 Acetaminophen 325 Mg Tablet PO 08/24/25 02:46 Q6H PRN Fever >101.5 Albuterol/Ipratropium 3 ml 07/25/25 03:00 07/25/25 07:47 Albuterol/Ipratropium (Duoneb) Rt Katarina 3 Ml Nebu INH 08/24/25 02:59 3 ml Q4HRRT JEANNE Administration Atorvastatin Calcium 20 mg 07/25/25 21:00 Atorvastatin Calcium 20 Mg Tablet PO 08/24/25 20:59 HS JEANNE Carvedilol 6.25 mg 07/25/25 17:30 Carvedilol 3.125 Mg Tablet GT 08/24/25 17:29 BIDWM JEANNE Dextrose 25 ml 07/25/25 03:53 Dextrose 50%-Water Inj 50 Ml Syringe IV 08/24/25 03:52 Q15MIN PRN BG 50-70 responsive npo pt Dextrose 50 ml 07/25/25 03:53 Dextrose 50%-Water Inj 50 Ml Syringe IV 08/24/25 03:52 Q15MIN PRN BG <50 OR BG <70 & pt unresponsive Enoxaparin Sodium 40 mg 09/18/25 09:00 07/25/25 09:27 Enoxaparin Sod Inj 60 Mg/0.6 Ml Syringe SC 08/08/25 08:59 40 mg BID JEANNE Administration Furosemide 20 mg 07/25/25 09:00 07/25/25 09:27 Furosemide 20 Mg Tablet GT 08/24/25 08:59 20 mg QAM JEANNE Administration Gemfibrozil 600 mg 07/25/25 09:00 07/25/25 09:27 Gemfibrozil 600 Mg Tablet PO 08/24/25 08:59 600 mg BID JEANNE Administration Glucagon 1 mg 07/25/25 03:53 Glucagon Inj 1 Mg Vial IM Q15MIN PRN BG <70, and no IV access Haloperidol 10 mg 07/25/25 09:00 Haloperidol 5 Mg Tablet PO 08/24/25 08:59 BID JEANNE Propofol 1,000 mg in 100 mls @ 4.627 mls/hr 07/25/25 02:33 07/25/25 06:00 Diprivan Ivpb IV 08/24/25 02:32 15 mcg/kg/min .[id number] PRN 13.88 mls/hr PER PROTOCOL Titration Protocol 5 MCG/KG/MIN Fentanyl Citrate 2,500 mcg in 250 mls @ 2.5 mls/hr 07/25/25 02:33 07/25/25 06:00 Sublimaze Inj 2,500 Mcg/250 Ml Bag IV 07/30/25 02:32 250 mcg/hr .Q24H PRN 25 mls/hr PER PROTOCOL Titration Protocol 25 MCG/HR Ceftriaxone Sodium/Dextrose 1 gm in 50 mls @ 100 mls/hr 07/25/25 05:13 07/25/25 09:13 Rocephin/D5w 1gm Iv Premix IV 08/01/25 05:12 Not Given QDAY JEANNE Azithromycin 500 mg/ Sodium 250 mls @ 250 mls/hr 07/25/25 06:05 07/25/25 09:14 Chloride IV 08/01/25 06:04 Not Given QDAY JEANNE Insulin Human Lispro 0 unit 07/25/25 06:00 07/25/25 06:56 Insulin Lispro (Admelog) 1 Unit/0.01 Ml Unit SC 08/24/25 05:59 1 unit Q6H JEANNE Administration Protocol Methylprednisolone Sodium Succinate 60 mg 07/25/25 09:00 07/25/25 09:28 Methylprednisolone Sod Succ 40 Mg/Ml Vial IVP 08/01/25 08:59 60 mg QDAY JEANNE Administration Ondansetron HCl 4 mg 07/25/25 02:47 Ondansetron Inj 2 Mg/Ml Inj 2 Ml IVP 08/24/25 02:46 Q6H PRN NAUSEA OR VOMITING Protocol Pantoprazole Sodium 40 mg 07/25/25 09:00 07/25/25 09:26 Pantoprazole Inj 40 Mg Vial IVP 08/24/25 08:59 40 mg QDAY JEANNE Administration Sodium Chloride 3 ml 07/24/25 23:43 Sodium Chloride Rt Katarina 0.9% 3 Ml Nebu INH 08/23/25 23:42 PRN PRN SOLN Plan Patient is a 44 years old male with PMH of morbid obesity, schizophrenia, hypertension, T2DM, BHAVESH on CPAP, and obesity hypoventilation syndrome on 2 L baseline O2 who was initially was admitted to ICU due to acute on chronic hypoxic hypercapnic respiratory failure due to COPD exacerbation in the setting of COVID-pneumonia requiring intubation for airway protection MANAGER RADIATION Chemical sedation Dx: ?on propofol and fentanyl for RASS of 0 Rx: ? For SAT Schizophrenia. Per chart review patient is on haloperidol at home Rx: ? Resumed home medication Haloperidol 10 mg p.o. twice daily CVS History of primary hypertension. Dx: -ECHO 03/2025: The transthoracic study is normal by two-dimensional, color flow imaging and Doppler interrogation. Normal left ventricular size and function. Normal right ventricle function. Approximate ejection fraction is 60%. Trace mitral and trace tricuspid regurgitation No wall motion abnormalities Left atrial diameter normal, no diastolic dysfunction noted per se in echo. -At home on Coreg and Lasix Rx: ? Resumed home medication Coreg 6.25 mg p.o. twice daily ? Resumed home medication Lasix 20 mg p.o. daily Respiratory: Airway obstruction secondary to severe BHAVESH and OHS requiring intubation and mechanical ventilation - resolving History of BHAVESH/OHS. Community-acquired pneumonia Patient is obese with a BMI of 52. Also has a reported history of BHAVESH and OHS which is obvious from his body habitus and baseline hypercarbia from his previous ABGs. At home he is on 2L O2 via NC at baseline and BiPAP at night. From the documentation it appears that patient presented with shortness of breath that was not amenable to BiPAP treatment and he became lethargic requiring intubation. On exam he appeared tachypneic and dyspneic with almost no air entry on auscultation. At that time it was suspected to be COPD exacerbation, however his pCO2 was only mildly elevated at 64 from his baseline 54 and unlikely to explain his lethargy. What is more likely is that due to his severe BHAVESH and OHS his airway collapsed due to increased positive pressure and not enough EPAP support on the BiPAP. Dx: ? pH 7.31?>7.31 ? pCO2 64?>62 Rx: ? For SBT today ? Switch to spontaneous mode ventilation with PEEP 8 and pressure support 5 RRx: - Once patient is extubated will place on BiPAP as needed once he is asleep Gastrointestinal: Elevated AST and ALT DDx: Secondary to statin, recent remdesivir use, [facility] Dx: AST 41, ALT 82 Rx: Monitor CMP Renal: No active problem. Endocrine: Metabolic syndrome. NIDDM type II [6.6%] [facility] Patient has metabolic syndrome, likely due to poor diet and antipsychotics. BMI 54. History of diabetes, hyperlipidemia (controlled with meds), morbid obesity. Rx: ? Insulin sliding scale ? Resumed home atorvastatin and gemfibrozil Infectious Disease Community-acquired pneumonia History of COVID-19 infection Allegedly on 07/15 patient tested positive for COVID-19 at his PCPs office, he was prescribed a course of steroids to which his symptoms were refractory. Subsequently he presented to the ED and was hospitalized from 07/19 - 07/23 during which she was treated with remdesivir, ceftriaxone, azithromycin, dexamethasone. He was discharged on a 5-day course of prednisone 40 mg p.o. Dx: - COVID positive ? Chest x-ray showed bilateral reticular opacifications, increased hilar markings, left base consolidation with blunting of left costophrenic angle. Rx: ? Continue ceftriaxone 1 g IV daily started on [07/25? ? Continue azithromycin 500 mg IV daily started on [07/25? Integumentary Stable, no acute problems ICU Health maintenance: Dispo: For extubation today. BiPAP as needed. Once clinically stable postextubation will downgrade to telemetry later today Diet: N.p.o. DVT ppx: Enoxaparin 40mg SC twice daily GI ppx: Protonix 40mg qD Mechanical ventilattion: Yes, Mode: Spontaneous, PS 5, PEEP 8 Sedation: No IV lines: 2 pIV Central line: No Arterial line: No Harden: Condom (started 07/25/25 - Code status: FULL CODE Plan of care discussed with Attending Dr. Fredy Rodriguez MD PGY 2 Disclaimer: This note was dictated by speech recognition. Minor errors in aircraft cylinder mechanic may be present due to voice recognition software.
[2025-07-25 10:05] LABS: Base Excess 4 (-3-3); HCO3 33 mEq/L (20-26); Inspired Oxygen, FIO2 100 %; O2 Saturation 85 % (91-98); PCO2 66 mmHg (32.0-48.0); pH, Arterial 7.31 (7.35-7.45)
[2025-07-25 10:06] LABS: Allen Test Performed/OK; PO2 52 mmHg (83-108); Puncture Site Left Radial
[2025-07-25] MEDS: ETOMIDATE INJ 2 MG/ML VIAL 10 ML 20 MG IVP (11:16)
[2025-07-25] MEDS: ROCURONIUM INJ 10 MG/ML VIAL 10 ML 100 MG IV (11:17)
--- NOTE | 2025-07-25 11:18 | XR_ITS ---
Examination: AP chest single view Technique one AP portable semiupright chest single view Date and time: July 25, 2025 1125 hours, comparison July 25, 2025 0255 hours INDICATIONS: Hypoxic respiratory failure reposition endotracheal tube. FINDINGS: Prominent pneumonia left base. Mild heart failure with enlargement cardiac contour prominent vascular congestion. Endotracheal tube tip 20 mm above jennifer. Orogastric tube is in the stomach, the tip is below the level film IMPRESSION: Prominent left base pneumonia Mild heart failure
[2025-07-25] MEDS: fentaNYL 2,500 MCG/250 ML BAG 2,500 MCG/250 ML BAG IV (11:19)
--- NOTE | 2025-07-25 11:29 | ESOP_ITS ---
<Statement entered by Teodoro Daniel MD - 07/25/25 13:21> I was present for the critical and sands portions of the procedure and was immediately available to provide assistance. PROCEDURES: Procedure Date / Time 07/25/25 1120 Intubation Indication(s): acute Resp Failure and inability to protect airway Informed consent obtained: procedure done urgently Time out done, and the following verified: correct patient, side and site, procedure, patient position and implants and/or equipment Sedative: etomidate Mg given: 20 Paralytic: rocuronium Mg given: 100 Laryngoscope: fiber optic video scope Assist device used: fiber optic device ET tube size: 8 ET tube uncuffed: No Tube secured depth (cm): 25 Tube secured location: teeth Tube placement confirmation: visualized tube passing through cords, equal breath sounds bilaterally, no breath sounds over epigastrium and confirmation by capnometry Patient tolerated procedure: well and no complications EBL(ml): 0 Intubation complications: none Additional comments: Procedure performed under supervision of Dr. Daniel. Ced Liu MD, PGY 3. Disclaimer: This note was dictated by speech recognition. Minor errors in felt puller may be present due to voice recognition software.
--- NOTE | 2025-07-25 11:33 | EVENTNT_ITS ---
<Statement entered by Teodoro Daniel MD - 07/25/25 13:21> I saw and evaluated the patient. I reviewed the resident?s note and agree with findings and plan as documented in the resident?s note. Documentation for date of: 07/25/25 Event Note Event Note: At 10:39 AM patient was extubated and placed on cool mist. Subsequently he began to desaturate into the 70s and we started bagging the patient until a BiPAP machine was brought to the room. At 10:54 AM BiPAP was started, the leak was 80% with a large mask and had to be switched to a nasal mask. Patient tolerated the nasal mask better, overcoming the airway obstruction but by that time his tachypnea was worsening in the 50s and patient began to appear tired and diaphoretic as well. At this point in time decision was made to intubate the patient. Etomidate 20 mg IV x 1 and rocuronium 100 mg IV x 1 was given at 1116 and 1117 respectively. Using a fiberoptic video laryngoscope a 7.5 ET tube was used for intubation. Intubation was successful at 1118. Sedation was restarted with fentanyl and propofol to maintain a RASS of 0. Postintubation CXR confirmed adequate positioning of ET tube. Attending Dr. Daniel was present for the duration and supervised the procedure Cody Rodriguez MD PGY 2 Disclaimer: This note was dictated by speech recognition. Minor errors in instrument panel assembler may be present due to voice recognition software.
[2025-07-25 14:07] LABS: Base Excess 5 (-3-3); HCO3 32 mEq/L (20-26); O2 Saturation 98 % (91-98); PCO2 58 mmHg (32.0-48.0); PO2 101 mmHg (83-108); pH, Arterial 7.35 (7.35-7.45)
[2025-07-25 14:13] LABS: Allen Test Performed/OK; Inspired Oxygen, FIO2 100 %; Puncture Site Right Radial
[2025-07-25 19:01] LABS: Amphetamine/Methamp Scrn,U Negative (Negative); Barbiturate Screen,Urine Negative (Negative); Benzodiazepines Screen,Urine Negative (Negative); Benzoylecgonine Screen, Ur Negative (Negative); Fentanyl Screen,Urine Positive (Negative); Opiate Screen,Urine Negative (Negative); THC Screen,Urine Negative (Negative)
[2025-07-25] MEDS: ATORVASTATIN CALCIUM 20 MG TABLET PO (20:51)
[2025-07-25] MEDS: PROPOFOL 1,000 MG IVPB 1,000 MG/100 ML VIAL 13.88 MG IV (21:31)
[2025-07-26] VITALS (41 sets, daily range): BP systolic 105–151; BP diastolic 52–102; PULSE 62–75; RESP 9–25; TEMP 36.2–36.6; O2SAT 92–99; BMI 51.5
[2025-07-26] MEDS: PROPOFOL 1,000 MG IVPB 1,000 MG/100 ML VIAL 23.133 MG IV ×2 (02:48→07:11)
[2025-07-26] MEDS: ALBUTEROL/IPRATROPIUM (Duoneb) RT SOL 3 ML NEBU INH ×6 (02:58→22:35)
[2025-07-26 04:47] LABS: Base Excess 7 (-3-3); HCO3 33 mEq/L (20-26); Inspired Oxygen, FIO2 35 %; O2 Saturation 94 % (91-98); PCO2 52 mmHg (32.0-48.0); PO2 66 mmHg (83-108); pH, Arterial 7.41 (7.35-7.45)
[2025-07-26 04:48] LABS: Allen Test Performed/OK; Puncture Site Right Radial
[2025-07-26 05:56] LABS: Basophils # (Auto) 0.0 Thou/mm3 (0.0-0.2); Basophils % (Auto) 0 % (0-2.5); Eosinophils # (Auto) 0.0 Thou/mm3 (0.0-0.5); Eosinophils % (Auto) 0 % (0-10); Hematocrit 37.9 % (41.0-53.0); Hemoglobin 12.1 g/dL (13.5-16.0); Immature Granulocytes Auto 0.11 Thou/mm3 (0.00-0.00); Lymphocytes # (Auto) 1.8 Thou/mm3 (1.0-4.8); Lymphocytes % (Auto) 13 % (10-50); Mean Corpuscular HGB Conc 31.9 g/dl (31.0-37.0); Mean Corpuscular Hemoglobin 28.1 pg (25.0-35.0); Mean Corpuscular Volume 88 fL (80-100); Monocytes # (Auto) 1.1 Thou/mm3 (0.0-0.8); Monocytes % (Auto) 8 % (0-12); Neutrophils # (Auto) 10.5 Thou/mm3 (1.8-7.7); Neutrophils % (Auto) 77 % (37-80); Nucleated Red Blood Cell # 0.00 Thou/mm3 (0.00-0.00); Nucleated Red Blood Cell % 0 /100 WBC (0); Platelet Count 220 Thou/mm3 (140-440); RDW Standard Deviation 51.5 fL (35.1-43.9); Red Blood Count 4.31 Miln/mm3 (4.50-5.90); White Blood Count 13.6 Thou/mm3 (3.8-10.6)
[2025-07-26 06:20] LABS: Alanine Aminotransferase 58 U/L (10-49); Albumin, Serum 3.2 gm/dL (3.5-5.0); Albumin/Globulin Ratio 1.5 (1.2-2.2); Alkaline Phosphatase 60 U/L (46-116); Anion Gap 6 (7-16); Aspartate Amino Transferase 22 U/L (0-34); BUN/Creatinine Ratio 21 Ratio (12-20); Bilirubin,Total 0.4 mg/dL (0.3-1.2); Blood Urea Nitrogen 17 mg/dL (9-23); Calcium 8.3 mg/dL (8.3-10.6); Calcium (Corrected) 8.9 mg/dL (8.5-10.1); Carbon Dioxide 31.0 mMol/L (20.0-31.0); Chloride 103 mMol/L (98-107); Creatinine (Component) 0.8 mg/dL (0.6-1.3); Estimated Creatinine Clearance 172.5 mL/min (>60); Globulin 2.2 gm/dL (2.3-3.5); Glucose 122 mg/dL (74-106); Magnesium 2.2 mg/dL (1.6-2.6); Osmolality,Calculated 281 (275-295); Phosphorous 3.1 mg/dL (2.4-5.1); Potassium 3.9 mMol/L (3.4-5.1); Sodium 140 mMol/L (136-145); Total Protein 5.4 gm/dL (5.7-8.2); eGFR > 60 See Note
--- NOTE | 2025-07-26 07:00 | EKG_ITS ---
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
[2025-07-26] MEDS: fentaNYL 2,500 MCG/250 ML BAG 2,500 MCG/250 ML BAG 12.5 MCG IV ×2 (08:39→10:29)
[2025-07-26] MEDS: AZITHROMYCIN INJ 500 MG in SODIUM CHLORIDE 0.9% 250 ML 250 ML 250 MG IV (09:43)
[2025-07-26] MEDS: cefTRIAXone/D5w 1gm IV premix 1 GM/50 ML BAG IV (09:43)
[2025-07-26] MEDS: ENOXAPARIN SOD INJ 60 MG/0.6 ML SYRINGE 40 MG SC ×2 (09:44→20:15)
[2025-07-26] MEDS: PROPOFOL 1,000 MG IVPB 1,000 MG/100 ML VIAL 18.507 MG IV (10:30)
--- NOTE | 2025-07-26 10:44 | PC.DIETICIAN ---
Nutrition prescription 1. Vital 1.2 at 20 ml/hr via OG tube by pump. Advance 10 ml every 8 hrs to goal rate of 50 ml/hr x 24 hrs. If no IV fluids, water flushes of 30 ml/hr (or per MD). 2. ProStat 30ml TID via OG tube.
--- NOTE | 2025-07-26 10:53 | ESPR_ITS ---
<Statement entered by Teodoro Daniel MD - 07/28/25 09:50> TOTAL TIME: 45MINUTES ON DIRECT MEDICAL CARE, MANAGEMENT - COORDINATION AND COUNSELING > 50% OF TOTAL TIME I saw and evaluated the patient. I reviewed the resident?s note and agree with findings and plan as documented in the resident?s note. Place back on PSV - do not extubate until able to tolerate 0/5 PS - also check NIF. failed 8/5 post extubation quickly. pneumonia needs to resolve f/u clx resutls <Statement entered by Cody Rodriguez MD - 07/26/25 17:08> I saw and examined patient personally and supervised PGY 1 resident, Dr. Hernandez with formulating a management plan. I agree with the documentation with the exceptions as listed below. Patient is a 44 years old male with PMH of morbid obesity, schizophrenia, hypertension, T2DM, BHAVESH on CPAP, and obesity hypoventilation syndrome on 2 L baseline O2 who was initially was admitted to ICU due to acute on chronic hypoxic hypercapnic respiratory failure due to BHAVESH/OHS in the setting of COVID- pneumonia requiring intubation for airway protection. Problem list: Acute on chronic hypoxic and hypercapnic respiratory failure secondary to BHAVESH/OHS requiring mechanical ventilation Community-acquired pneumonia COVID-19 infection COPD exacerbation History of schizophrenia NIDDM type II MASLD Yesterday patient failed extubation and had to be reintubated for pressure support. Most likely patient has upper airway obstruction due to chronic BHAVESH and possibly developed treatment emergent central apnea postextubation. Today we will keep patient on spontaneous mode ventilation with PS 5, PEEP 5 with a goal of weaning to 0/0. No plans for extubation overnight. With regards to patient's community-acquired pneumonia we will continue treatment with ceftriaxone and azithromycin IV. Currently on day 2 of treatment, will discontinue azithromycin tomorrow and continue ceftriaxone for a total of a 5-day course. For nutrition enteral feeding via OG was started today as per dietitian recommendations with water flushes at 30 cc/h. Plan of care discussed with Attending Dr. Fredy Rodriguez MD PGY 2 Disclaimer: This note was dictated by speech recognition. Minor errors in encapsulator may be present due to voice recognition software. Documentation for date of: 07/26/25 Subjective Subjective Interval history: The patient is a 44-year-old male with a medical history of morbid obesity, schizophrenia, hypertension, type 2 diabetes mellitus, obstructive sleep apnea , obesity hypoventilation syndrome (on 2 L oxygen at baseline), COPD, and a recent history of COVID-pneumonia, for which he was discharged from the hospital. He presents to the emergency department with worsening shortness of breath. History was primarily obtained from the ED sign-out and chart review. Upon presentation, the patient was hypoxic. After receiving a breathing treatment, his oxygen saturation significantly improved, but he remained tachypneic and appeared to be in acute distress. The patient was placed on BiPAP but did not tolerate it well and progressively worsened, including a decline in neurological status. He became lethargic, though arousable. Physical exam revealed distant breath sounds bilaterally, though auscultation was challenging due to his body habitus. According to the ED sign-out, the patient denied chest pain, headache, vision changes, or any other symptoms apart from dyspnea. Initial labs (CBC and CMP) were unremarkable. Chest X-ray revealed pneumonia, and a COVID-19 bedside test was positive. A VBG showed a pH of 7.36, pCO2 of 58, and an O2 saturation of 89%. Despite being placed on BiPAP, the patient?s mental status continued to deteriorate, and he became more tachypneic, using accessory muscles to breathe. An ABG revealed worsening respiratory status: pH 7.31, pCO2 64, pO2 71, and bicarbonate 32. Given the worsening condition, the decision was made to intubate for airway protection. The patient was subsequently admitted to the ICU for [id number] hypoxic hypercapnic respiratory failure, secondary to a COPD exacerbation in the setting of COVID-pneumonia. 07/25/2025: Patient had no events overnight. 68.3, output of 450 cc, balance - 389 cc. Patient on low-dose fentanyl and propofol at RASS of 0. He follows commands appropriately and currently watching Television. End-tidal CO2 54 while on AC VC. Chest x-ray showed bilateral reticular opacities, poor respiratory effort with reduced lung volumes, left base consolidation with blunting of costophrenic angle. WBC 13.6, K5, BUN 15, CR 0.8, magnesium 2, AST 41, ALT 82, HbA1c 6.6%. Will attempt SAT and SBT. Once patient tolerates SBT will switch to Pressure support and repeat a blood gas. Resumed his home medication via OG. 07/26/2025: No overnight events. Patient was examined at bedside; he remains intubated on ACMV (Volume 250, RR 20, and PEEP 8) while being sedated with propofol and fentanyl for a goal RASS of 0. He awakens to voice but quickly returns to sleep afterwards. ABG lab values this morning appear relatively improved with pH 7.41, pCO2 52, pO2 66, and HCO3 33 and patient's transaminitis is also improving. The current plan (besides daily SATs for timely sedation weaning) is to keep patient on spontaneous mode (pressure support) and to monitor his respiratory status on that mode due to the likelihood that his failure to be extubated yesterday was primarily 2/2 airway obstruction 2/2 obesity hypoventilation syndrome in the setting of increased metabolic demand from his ongoing pneumonia. His progress for respiratory improvement will likely be more accurately evaluated on pressure support due to this being the limiting reagent of adequate oxygenation and ventilation; as such, we will monitor his breathing as we slowly wean pressure support and PEEP to guide our timeline and expectations concerning punctual extubation. Once patient seems able to sustain comfortable breathing without any pressure support or PEEP (passes SBT) and demonstrates a good Negative Inspiratory Force (below -25 cm H2O) on testing, another extubation attempt will be made. If, after a few hours s/p extubation, patient continues to demonstrate adequate respiratory functions and shows no signs of post-extubation apneic episodes, he will be deemed stable enough for downgrade to floors. He will also be restarted on tube feeds today with water flushes running @ 30 mL/hr, and continue IV ceftriaxone and IV azithromycin to treat his pneumonia (07/25 sputum culture grew 1+ GNR and Gram stain showed 1+ GPC, low concern/risk for Pseudomonas aeruginosa). Exam Vital Signs Temp Pulse Resp BP Pulse Ox O2 Del Method O2 Flow Rate 97.6 F 69 15 151/71 H 98 Mechanical Ventilation 35 07/26/25 08:30 07/26/25 10:23 07/26/25 10:23 07/26/25 10:00 07/26/25 10:23 07/26/25 08:30 07/26/25 08:30 FiO2 35 07/26/25 10:23 Narrative Exam Constitutional Alert, oriented, intubated. Spontaneous mode, PS 5, PEEP 8, FiO2 35% HEENT Vision grossly intact. Patent nares. Trachea midline Respiratory Difficult to clearly auscultate lung sounds due to body habitus and mechanical ventilation. Chest normal on inspection and reduced air entry in lower Lung bradley. No wheezing Cardiovascular S1 and S2 audible, RRR. No murmurs carotid bruit. No gross JVD. Abdominal Soft, obese and non tender to palpation in all quadrants. BS + Genitourinary No bladder tenderness, no flank pain. Normal to palpation Musculoskeletal Extremities tone within normal limits. No LE edema. Neurological CN II - XII grossly intact. Extremity motor and sensation grossly intact. Skin Warm, dry and intact. No apparent lesions. Psychiatric Patient has good affect, is cooperative Objective Labs 07/26/25 05:23 07/26/25 05:23 Labs: Laboratory Results - last 24 hr 07/25/25 07/25/25 07/26/25 13:50 18:13 04:37 WBC RBC Hgb Hct MCV MCH MCHC RDW Std Deviation Plt Count Neut % (Auto) Lymph % (Auto) Cloud % (Auto) Eos % (Auto) Baso % (Auto) Neut # (Auto) Lymph # (Auto) Cloud # (Auto) Eos # (Auto) Baso # (Auto) Immature Gran # (Auto) Absolute Nucleated RBC Immature Gran % Nucleated RBC % Puncture Site Right Radial Right Radial ABG pH 7.35 7.41 ABG pCO2 58 H 52 H ABG pO2 101 D 66 L D ABG HCO3 32 H 33 H ABG O2 Saturation 98 94 ABG Base Excess 5 H 7 H FiO2 100 35 Sodium Potassium Chloride Carbon Dioxide Anion Gap BUN Creatinine Estim Creat Clear Calc eGFR BUN/Creatinine Ratio Glucose Calculated Osmolality Calcium Corrected Calcium Phosphorus Magnesium Total Bilirubin AST ALT Alkaline Phosphatase Total Protein Albumin Globulin Albumin/Globulin Ratio Urine Opiates Screen Negative Urine Fentanyl Screen Positive A Ur Barbiturates Screen Negative U Amphetamin/Meth Scrn Negative U Benzodiazepines Scrn Negative U Cocaine Metab Screen Negative U Marijuana (THC) Screen Negative 07/26/25 05:23 WBC 13.6 H RBC 4.31 L Hgb 12.1 L D Hct 37.9 L MCV 88 MCH 28.1 MCHC 31.9 RDW Std Deviation 51.5 H Plt Count 220 Neut % (Auto) 77 Lymph % (Auto) 13 Cloud % (Auto) 8 Eos % (Auto) 0 Baso % (Auto) 0 Neut # (Auto) 10.5 H Lymph # (Auto) 1.8 Cloud # (Auto) 1.1 H Eos # (Auto) 0.0 Baso # (Auto) 0.0 Immature Gran # (Auto) 0.11 H Absolute Nucleated RBC 0.00 Immature Gran % 1 H Nucleated RBC % 0 Puncture Site ABG pH ABG pCO2 ABG pO2 ABG HCO3 ABG O2 Saturation ABG Base Excess FiO2 Sodium 140 Potassium 3.9 D Chloride 103 Carbon Dioxide 31.0 Anion Gap 6 L BUN 17 Creatinine 0.8 Estim Creat Clear Calc 172.5 eGFR > 60 BUN/Creatinine Ratio 21 H Glucose 122 H Calculated Osmolality 281 Calcium 8.3 Corrected Calcium 8.9 Phosphorus 3.1 Magnesium 2.2 Total Bilirubin 0.4 AST 22 ALT 58 H Alkaline Phosphatase 60 D Total Protein 5.4 L Albumin 3.2 L D Globulin 2.2 L Albumin/Globulin Ratio 1.5 Urine Opiates Screen Urine Fentanyl Screen Ur Barbiturates Screen U Amphetamin/Meth Scrn U Benzodiazepines Scrn U Cocaine Metab Screen U Marijuana (THC) Screen ABG Interpretation ABG results: 07/24/25 07/25/25 07/25/25 23:47 02:20 04:08 ABG pH 7.31 L 7.29 L ABG pCO2 64 H 67 H ABG pO2 71 L 52 L* ABG HCO3 32 H 32 H ABG O2 Saturation 93 84 L ABG Base Excess 3 3 VBG pH 7.35 VBG pCO2 58 H D VBG pO2 58 VBG Base Excess 4 H 07/25/25 07/25/25 07/25/25 05:08 07:18 09:35 ABG pH 7.29 L 7.31 L 7.31 L ABG pCO2 67 H 62 H 66 H ABG pO2 71 L 83 52 L* D ABG HCO3 32 H 31 H 33 H ABG O2 Saturation 93 96 85 L ABG Base Excess 3 3 4 H VBG pH VBG pCO2 VBG pO2 VBG Base Excess 07/25/25 07/26/25 13:50 04:37 ABG pH 7.35 7.41 ABG pCO2 58 H 52 H ABG pO2 101 D 66 L D ABG HCO3 32 H 33 H ABG O2 Saturation 98 94 ABG Base Excess 5 H 7 H VBG pH VBG pCO2 VBG pO2 VBG Base Excess Quality Measures Quality Measures none Assessment & Plan Assessment Current Active Medications: Generic Name Dose Route Start Last Admin Trade Name Luisa PRN Reason Stop Dose Admin Acetaminophen 1,000 mg 07/26/25 08:33 Acetaminophen 500 Mg Tablet PO 08/24/25 02:46 Q6H PRN Fever >100 or pain Albuterol/Ipratropium 3 ml 07/25/25 03:00 07/26/25 10:22 Albuterol/Ipratropium (Duoneb) Rt Katarina 3 Ml Nebu INH 08/24/25 02:59 3 ml Q4HRRT JEANNE Administration Atorvastatin Calcium 20 mg 07/25/25 21:00 07/25/25 20:51 Atorvastatin Calcium 20 Mg Tablet PO 08/24/25 20:59 20 mg HS JEANNE Administration Carvedilol 6.25 mg 07/25/25 17:30 07/26/25 09:46 Carvedilol 3.125 Mg Tablet GT 08/24/25 17:29 6.25 mg BIDWM JEANNE Administration Dextrose 25 ml 07/25/25 03:53 Dextrose 50%-Water Inj 50 Ml Syringe IV 08/24/25 03:52 Q15MIN PRN BG 50-70 responsive npo pt Dextrose 50 ml 07/25/25 03:53 Dextrose 50%-Water Inj 50 Ml Syringe IV 08/24/25 03:52 Q15MIN PRN BG <50 OR BG <70 & pt unresponsive Enoxaparin Sodium 40 mg 07/25/25 09:00 07/26/25 09:44 Enoxaparin Sod Inj 60 Mg/0.6 Ml Syringe SC 08/08/25 08:59 40 mg BID JEANNE Administration Furosemide 20 mg 07/25/25 09:00 07/26/25 09:45 Furosemide 20 Mg Tablet GT 08/24/25 08:59 20 mg QAM JEANNE Administration Gemfibrozil 600 mg 07/25/25 09:00 07/26/25 09:46 Gemfibrozil 600 Mg Tablet PO 08/24/25 08:59 600 mg BID JEANNE Administration Glucagon 1 mg 07/25/25 03:53 Glucagon Inj 1 Mg Vial IM Q15MIN PRN BG <70, and no IV access Haloperidol 10 mg 07/25/25 09:00 07/26/25 09:49 Haloperidol 5 Mg Tablet PO 08/24/25 08:59 10 mg BID JEANNE Administration Ceftriaxone Sodium/Dextrose 1 gm in 50 mls @ 100 mls/hr 07/25/25 05:13 07/26/25 09:43 Rocephin/D5w 1gm Iv Premix IV 08/01/25 05:12 100 mls/hr QDAY JEANNE Administration Azithromycin 500 mg/ Sodium 250 mls @ 250 mls/hr 07/25/25 06:05 07/26/25 09:43 Chloride IV 08/01/25 06:04 250 mls/hr QDAY JEANNE Administration Fentanyl Citrate 2,500 mcg in 250 mls @ 2.5 mls/hr 07/26/25 10:11 07/26/25 10:29 Sublimaze Inj 2,500 Mcg/250 Ml Bag IV 07/30/25 02:32 125 mcg/hr .Q24H PRN 12.5 mls/hr PER PROTOCOL Administration Protocol 25 MCG/HR Propofol 1,000 mg in 100 mls @ 4.627 mls/hr 07/26/25 10:11 07/26/25 10:30 Diprivan Ivpb IV 08/24/25 02:32 20 mcg/kg/min .[id number] PRN 18.507 mls/hr PER PROTOCOL Administration Protocol 5 MCG/KG/MIN Insulin Human Lispro 0 unit 07/25/25 06:00 07/26/25 06:10 Insulin Lispro (Admelog) 1 Unit/0.01 Ml Unit SC 08/24/25 05:59 Not Given Q6H JEANNE Protocol Ondansetron HCl 4 mg 07/25/25 02:47 Ondansetron Inj 2 Mg/Ml Inj 2 Ml IVP 08/24/25 02:46 Q6H PRN NAUSEA OR VOMITING Protocol Pantoprazole Sodium 40 mg 07/25/25 09:00 07/26/25 09:44 Pantoprazole Inj 40 Mg Vial IVP 08/24/25 08:59 40 mg QDAY JEANNE Administration Sodium Chloride 3 ml 07/24/25 23:43 Sodium Chloride Rt Katarina 0.9% 3 Ml Nebu INH 08/23/25 23:42 PRN PRN SOLN Plan Patient is a 44 years old male with PMH of morbid obesity, schizophrenia, hypertension, T2DM, BHAVESH on CPAP, and obesity hypoventilation syndrome on 2 L baseline O2 who was initially was admitted to ICU due to acute on chronic hypoxic hypercapnic respiratory failure due to COPD exacerbation in the setting of COVID-pneumonia requiring intubation for airway protection. No overnight events. Patient was examined at bedside; he remains intubated on ACMV (Volume 250, RR 20, and PEEP 8) while being sedated with propofol and fentanyl for a goal RASS of 0. He awakens to voice but quickly returns to sleep afterwards. ABG lab values this morning appear relatively improved with pH 7.41, pCO2 52, pO2 66, and HCO3 33 and patient's transaminitis is also improving. The current plan (besides daily SATs for timely sedation weaning) is to keep patient on spontaneous mode (pressure support) and to monitor his respiratory status on that mode due to the likelihood that his failure to be extubated yesterday was primarily 2/2 airway obstruction 2/2 obesity hypoventilation syndrome in the setting of increased metabolic demand from his ongoing pneumonia. His progress for respiratory improvement will likely be more accurately evaluated on pressure support due to this being the limiting reagent of adequate oxygenation and ventilation; as such, we will monitor his breathing as we slowly wean pressure support and PEEP to guide our timeline and expectations concerning punctual extubation. Once patient seems able to sustain comfortable breathing without any pressure support or PEEP (passes SBT) and demonstrates a good Negative Inspiratory Force (below -25 cm H2O) on testing, another extubation attempt will be made. If, after a few hours s/p extubation, patient continues to demonstrate adequate respiratory functions and shows no signs of post-extubation apneic episodes, he will be deemed stable enough for downgrade to floors. He will also be restarted on tube feeds today with water flushes running @ 30 mL/hr, and continue IV ceftriaxone and IV azithromycin to treat his pneumonia (07/25 sputum culture grew 1+ GNR and Gram stain showed 1+ GPC, low concern/risk for Pseudomonas aeruginosa). [employer] #Chemical sedation Patient is currently being chemically sedated for comfort while intubated with propofol and fentanyl titrated to maintain RASS of 0 Rx: -Daily SATs to guide timely weaning off of sedation RRx: -Patient appears relatively comfortable and without distress during sedation vacation today #Schizophrenia Per chart review patient is on haloperidol at home Rx: -Continue home medication Haloperidol 10 mg p.o. twice daily RRx: -No overt signs of breakthrough psychosis noticed during sedation vacation [facility] #History of primary hypertension Dx: -ECHO 03/2025: The transthoracic study is normal by two-dimensional, color flow imaging and Doppler interrogation. Normal left ventricular size and function. Normal right ventricle function. Approximate ejection fraction is 60%. Trace mitral and trace tricuspid regurgitation No wall motion abnormalities Left atrial diameter normal, no diastolic dysfunction noted per se in echo. -At home on Coreg and Lasix Rx: ?Continue home medication Coreg 6.25 mg p.o. twice daily ?Continue home medication Lasix 20 mg p.o. daily RRx: -Blood pressures today have been well-controlled, ranging mostly between 105-130/55-70 Respiratory #Acute on chronic hypoxic and hypercapnic respiratory failure (resolving) #Community-acquired pneumonia (resolving) #History of BHAVESH/OHS #Airway obstruction secondary to primarily OHS, in the setting of concomitant BHAVESH, requiring intubation and mechanical ventilation (resolving) Patient is obese with a BMI of 52 and has a reported history of BHAVESH and OHS which is consonant with his observed body habitus and baseline hypercarbia from previous ABGs. At home, he is on 2L O2 via NC at baseline and BiPAP at night. From the documentation, it appears that patient presented with shortness of breath that was not amenable to BiPAP treatment and he became lethargic requiring intubation. On exam, he appeared tachypneic and dyspneic with almost no air entry on auscultation. At that time, it was suspected to be COPD exacerbation; however, his pCO2 was only mildly elevated at 64 from his baseline 54 and unlikely to explain his lethargy. A more likely explanation would be that his airway collapsed, in the setting of OHS and BHAVESH, due to increased positive pressure and him not receiving enough EPAP support on the BiPAP. Dx: -07/26 ABG showed pH 7.41, pCO2 52, pO2 66, HCO3 33 (compared to pH 7.31, pCO2 64, pO2 71, and HCO3 33 upon ICU admission) -07/25 CXR consistent with chronic low lung volumes and left lower lobe atelectasis versus pneumonia with consolidation -07/25 sputum culture grew 1+ GNR and Gram stain showed 1+ GPC -07/24 BCx's both negative after 24 hours -MRSA screen pending Rx: -Continue to monitor patient's respiratory status on spontaneous mode pressure support with SBTs -If SBT is passed, move on to NIF testing -If NIF testing < -25 cm H2O, extubate -If extubated, monitor patient's respiratory status for distress/desaturations or signs of post-extubation apneic episodes for a couple of hours (once stabilized, will downgrade to floors) -Continue antibiotic treatment for pneumonia as outlined in the ID section RRx: -Due to patient failing his extubation attempt yesterday, likely 2/2 airway obstruction from inadequate positive pressures post-extubation in the setting of OHS, any further extubation attempts will be deferred until patient shows promising result on NIF testing in addition to passing SBTs Gastrointestinal #Transaminitis (resolving) DDx: Secondary to statin, recent remdesivir use, MASLD Dx: AST improved to 22 from 41 yesterday, ALT improved to 58 from 82 yesterday RRx: Patient's LFTs are improving, will continue to monitor CMP Renal No active problem. Endocrine Metabolic syndrome. NIDDM type II [6.6%] [facility] Patient has metabolic syndrome, likely due to poor diet and antipsychotics. BMI 54. History of diabetes, hyperlipidemia (controlled with meds), morbid obesity. Rx: ? Insulin sliding scale ? Continue home atorvastatin and gemfibrozil Infectious Disease Community-acquired pneumonia History of COVID-19 infection Allegedly, on 07/15, patient tested positive for COVID-19 at his PCPs office. He was prescribed a course of steroids to which his symptoms were refractory. Subsequently, he presented to the ED and was hospitalized from 07/19 - 07/23 during which he was treated with remdesivir, ceftriaxone, azithromycin, and dexamethasone. He was discharged on a 5-day course of prednisone 40 mg p.o. Dx: -07/15 COVID positive -Chest x-ray showed bilateral reticular opacifications, increased hilar markings, left base consolidation with blunting of left costophrenic angle. Rx: ? Continue ceftriaxone 1 g IV daily started on [07/25? ? Continue azithromycin 500 mg IV daily started on [07/25? Integumentary No active problems ICU Health Maintenance Disposition: Patient remains in need of intubation and ICU-level management. Diet: Tube feed started w/ water flushes @ 30 mL/hr DVT ppx: Enoxaparin 40mg SC twice daily GI ppx: Protonix 40mg qD Mechanical Ventilation: Yes, Mode: Spontaneous, PS 5, PEEP 8 Sedation: Propofol and Fentanyl to maintain RASS 0 IV lines: 2 pIV Central line: No Arterial line: No Harden: Condom (started 07/25/25 - Code status: FULL CODE Plan of care discussed with Attending Dr. Fredy Hernandez, DO Internal Medicine, PGY-1
[2025-07-26] MEDS: PROPOFOL 1,000 MG IVPB 1,000 MG/100 ML VIAL 13.88 MG IV ×2 (13:00→18:39)
[2025-07-26] MEDS: ATORVASTATIN CALCIUM 20 MG TABLET PO (20:15)
[2025-07-27] VITALS (36 sets, daily range): BP systolic 109–139; BP diastolic 57–76; PULSE 70–94; RESP 14–34; TEMP 35.9–36.8; O2SAT 87–99; BMI 51.7
[2025-07-27] MEDS: ALBUTEROL/IPRATROPIUM (Duoneb) RT SOL 3 ML NEBU INH ×6 (02:30→22:26)
[2025-07-27] MEDS: PROPOFOL 1,000 MG IVPB 1,000 MG/100 ML VIAL 13.88 MG IV ×2 (02:40→09:12)
[2025-07-27 05:07] LABS: Base Excess 5 (-3-3); HCO3 32 mEq/L (20-26); Inspired Oxygen, FIO2 21 %; O2 Saturation 93 % (91-98); PCO2 51 mmHg (32.0-48.0); PO2 64 mmHg (83-108); pH, Arterial 7.40 (7.35-7.45)
[2025-07-27 05:08] LABS: Allen Test Performed/OK; Puncture Site Right Radial
[2025-07-27 05:31] LABS: Basophils # (Auto) 0.0 Thou/mm3 (0.0-0.2); Basophils % (Auto) 0 % (0-2.5); Eosinophils # (Auto) 0.1 Thou/mm3 (0.0-0.5); Eosinophils % (Auto) 1 % (0-10); Hematocrit 39.5 % (41.0-53.0); Hemoglobin 12.5 g/dL (13.5-16.0); Immature Granulocytes Auto 0.07 Thou/mm3 (0.00-0.00); Lymphocytes # (Auto) 1.7 Thou/mm3 (1.0-4.8); Lymphocytes % (Auto) 17 % (10-50); Mean Corpuscular HGB Conc 31.6 g/dl (31.0-37.0); Mean Corpuscular Hemoglobin 28.0 pg (25.0-35.0); Mean Corpuscular Volume 89 fL (80-100); Monocytes # (Auto) 0.5 Thou/mm3 (0.0-0.8); Monocytes % (Auto) 5 % (0-12); Neutrophils # (Auto) 7.7 Thou/mm3 (1.8-7.7); Neutrophils % (Auto) 76 % (37-80); Nucleated Red Blood Cell # 0.00 Thou/mm3 (0.00-0.00); Nucleated Red Blood Cell % 0 /100 WBC (0); Platelet Count 203 Thou/mm3 (140-440); RDW Standard Deviation 53.1 fL (35.1-43.9); Red Blood Count 4.46 Miln/mm3 (4.50-5.90); White Blood Count 10.2 Thou/mm3 (3.8-10.6)
[2025-07-27 06:08] LABS: Alanine Aminotransferase 49 U/L (10-49); Albumin, Serum 3.4 gm/dL (3.5-5.0); Albumin/Globulin Ratio 1.5 (1.2-2.2); Alkaline Phosphatase 65 U/L (46-116); Anion Gap 7 (7-16); Aspartate Amino Transferase 15 U/L (0-34); BUN/Creatinine Ratio 24 Ratio (12-20); Bilirubin,Total 0.5 mg/dL (0.3-1.2); Blood Urea Nitrogen 19 mg/dL (9-23); Calcium 8.2 mg/dL (8.3-10.6); Calcium (Corrected) 8.7 mg/dL (8.5-10.1); Carbon Dioxide 30.8 mMol/L (20.0-31.0); Chloride 101 mMol/L (98-107); Creatinine (Component) 0.8 mg/dL (0.6-1.3); Estimated Creatinine Clearance 171.3 mL/min (>60); Globulin 2.2 gm/dL (2.3-3.5); Glucose 92 mg/dL (74-106); Magnesium 2.1 mg/dL (1.6-2.6); Osmolality,Calculated 279 (275-295); Phosphorous 3.5 mg/dL (2.4-5.1); Potassium 3.8 mMol/L (3.4-5.1); Sodium 139 mMol/L (136-145); Total Protein 5.6 gm/dL (5.7-8.2); eGFR > 60 See Note
[2025-07-27] MEDS: cefTRIAXone/D5w 1gm IV premix 1 GM/50 ML BAG IV (09:46)
[2025-07-27] MEDS: AZITHROMYCIN INJ 500 MG in SODIUM CHLORIDE 0.9% 250 ML 250 ML 250 MG IV (09:46)
[2025-07-27] MEDS: ENOXAPARIN SOD INJ 60 MG/0.6 ML SYRINGE 40 MG SC ×2 (09:49→20:35)
[2025-07-27] MEDS: fentaNYL 2,500 MCG/250 ML BAG 2,500 MCG/250 ML BAG 7.5 MCG IV (09:56)
[2025-07-27] MEDS: DEXMEDETOMIDINE 400 MCG IVPB 400 MCG/100 ML BAG 7.805 MCG IV (10:04)
--- NOTE | 2025-07-27 10:33 | ESPR_ITS ---
<Statement entered by Ced Liu MD - 07/27/25 15:18> Senior Resident Attestation: I supervised/discussed management plan with credit intern physician Dr. Hernandez, and was involved in the care of this patient. I personally saw and examined the patient and discussed the assessment and plan with the entire medicine team, including my attending. I agree with the assessment and plan as documented. Patient was seen and examined at the bedside. He was switched to pressure support in the morning and is able to breathe normally. His sedation with fentanyl and propofol were discontinued, he was started on Precedex drip to maintain RASS 0. Plan is to keep him on pressure support until tomorrow morning and if no contraindication will attempt to extubate patient on BiPAP tomorrow morning. Continue current management with ceftriaxone and azithromycin, chest physical therapy was ordered. Patient's care was discussed with attending physician, Dr. Walsh. Ced Liu MD PGY-3. Documentation for date of: 07/27/25 Subjective Subjective Interval history: The patient is a 44-year-old male with a medical history of morbid obesity, schizophrenia, hypertension, type 2 diabetes mellitus, obstructive sleep apnea , obesity hypoventilation syndrome (on 2 L oxygen at baseline), COPD, and a recent history of COVID-pneumonia, for which he was discharged from the hospital. He presents to the emergency department with worsening shortness of breath. History was primarily obtained from the ED sign-out and chart review. Upon presentation, the patient was hypoxic. After receiving a breathing treatment, his oxygen saturation significantly improved, but he remained tachypneic and appeared to be in acute distress. The patient was placed on BiPAP but did not tolerate it well and progressively worsened, including a decline in neurological status. He became lethargic, though arousable. Physical exam revealed distant breath sounds bilaterally, though auscultation was challenging due to his body habitus. According to the ED sign-out, the patient denied chest pain, headache, vision changes, or any other symptoms apart from dyspnea. Initial labs (CBC and CMP) were unremarkable. Chest X-ray revealed pneumonia, and a COVID-19 bedside test was positive. A VBG showed a pH of 7.36, pCO2 of 58, and an O2 saturation of 89%. Despite being placed on BiPAP, the patient?s mental status continued to deteriorate, and he became more tachypneic, using accessory muscles to breathe. An ABG revealed worsening respiratory status: pH 7.31, pCO2 64, pO2 71, and bicarbonate 32. Given the worsening condition, the decision was made to intubate for airway protection. The patient was subsequently admitted to the ICU for [id number] hypoxic hypercapnic respiratory failure, secondary to a COPD exacerbation in the setting of COVID-pneumonia. 07/25/2025: Patient had no events overnight. 68.3, output of 450 cc, balance - 389 cc. Patient on low-dose fentanyl and propofol at RASS of 0. He follows commands appropriately and currently watching Television. End-tidal CO2 54 while on AC VC. Chest x-ray showed bilateral reticular opacities, poor respiratory effort with reduced lung volumes, left base consolidation with blunting of costophrenic angle. WBC 13.6, K5, BUN 15, CR 0.8, magnesium 2, AST 41, ALT 82, HbA1c 6.6%. Will attempt SAT and SBT. Once patient tolerates SBT will switch to Pressure support and repeat a blood gas. Resumed his home medication via OG. 07/26/2025: No overnight events. Patient was examined at bedside; he remains intubated on ACMV (Volume 250, RR 20, and PEEP 8) while being sedated with propofol and fentanyl for a goal RASS of 0. He awakens to voice but quickly returns to sleep afterwards. ABG lab values this morning appear relatively improved with pH 7.41, pCO2 52, pO2 66, and HCO3 33 and patient's transaminitis is also improving. The current plan (besides daily SATs for timely sedation weaning) is to keep patient on spontaneous mode (pressure support) and to monitor his respiratory status on that mode due to the likelihood that his failure to be extubated yesterday was primarily 2/2 airway obstruction 2/2 obesity hypoventilation syndrome in the setting of increased metabolic demand from his ongoing pneumonia. His progress for respiratory improvement will likely be more accurately evaluated on pressure support due to this being the limiting reagent of adequate oxygenation and ventilation; as such, we will monitor his breathing as we slowly wean pressure support and PEEP to guide our timeline and expectations concerning punctual extubation. Once patient seems able to sustain comfortable breathing without any pressure support or PEEP (passes SBT) and demonstrates a good Negative Inspiratory Force (below -25 cm H2O) on testing, another extubation attempt will be made. If, after a few hours s/p extubation, patient continues to demonstrate adequate respiratory functions and shows no signs of post-extubation apneic episodes, he will be deemed stable enough for downgrade to floors. He will also be restarted on tube feeds today with water flushes running @ 30 mL/hr, and continue IV ceftriaxone and IV azithromycin to treat his pneumonia (07/25 sputum culture grew 1+ GNR and Gram stain showed 1+ GPC, low concern/risk for Pseudomonas aeruginosa). 07/27/25: No overnight events. Patient was examined at bedside; he remains intubated on spontaneous pressure support mode and appears able to breathe normally. Due to the need for a respiratory drive to trigger breaths on spontaneous pressure support mode, the decision was made to switch patient's sedation regimen from propofol and fentanyl to Precedex with the goal of maintaining RASS of 0. Sputum culture grew Enterobacter aerogenes which was susceptible to ceftriaxone (patient's current antibiotic regimen). Currently plan to have patient sit up and receive both Mucomyst and chest PT to the area of lobar consolidation (lower left lobe) to improve its condition before another extubation attempt to BiPAP is made tomorrow. Exam Vital Signs Temp Pulse Resp BP Pulse Ox O2 Del Method O2 Flow Rate 97.3 F 83 17 134/62 H 87 L Mechanical Ventilation 35 07/27/25 08:01 07/27/25 08:50 07/27/25 06:35 07/27/25 08:50 07/27/25 08:01 07/27/25 04:01 07/26/25 08:30 FiO2 35 07/27/25 08:00 Narrative Exam Physical Exam: General: Somnolent, morbidly obese male in NAD. Opens eyes to voice and understands and obeys commands. Skin: Warm, dry, intact, no obvious rash. Head: Normocephalic, atraumatic. Eyes: Pupils equal and round, however pupil reactivity to light could not be appreciated due to patient not opening his eyes wide enough during testing. EOMI. Anicteric. Ears: Hearing grossly intact. Nose: No nasal discharge. Mouth/Throat: ET and OG tube in place. Oral mucosa moist. No obvious lesions in oropharynx (though exam is limited due to patient being intubated and unable to open mouth completely). Cardiovascular: Difficult to auscultate clearly due to body habitus and ventilation but seemingly regular rate and rhythm, no murmur, no JVD or carotid bruits. +S1/S2. Respiratory: On ventilatory spontaneous pressure support. Diffuse crackles appreciated on bilateral anterior and posterior lung bradley irrespective of breathing phase, no wheezing. No increased work of breathing or accessory muscle use observed. Gastrointestinal: Soft, nontender, obese, no palpable masses. No guarding or rebound tenderness. Peristaltic bowel sounds normoactive. Extremities: Dark, hyperpigmented bone spur on dorso-medial surface of R foot. Bilateral dryness and flakiness of feet, especially towards the plantar surfaces. Untrimmed toenails. Significant darkening and thickening of L hallux nail. Long, curved, claw-like nail on L pinky toe. Long, untrimmed R hallux nail. Medial deviation of nails observed on L third, fourth, and pinky toe. Elongated, hooded appearance of nails on L fourth and pinky toe. Scabbed abrasion near base of R third toe. No significant deformities. Some edema of lower extremities, no cyanosis, no clubbing, and no mottling. Radial pulse palpable bilaterally. Neuro: No focal deficits observed. Conversant, moving all extremities. No overt cerebellar signs/incoordination. Psychiatric: Cooperative but somnolent. Objective Labs 07/27/25 04:46 07/27/25 04:46 Labs: Laboratory Results - last 24 hr 07/27/25 07/27/25 04:46 05:00 WBC 10.2 RBC 4.46 L Hgb 12.5 L Hct 39.5 L MCV 89 MCH 28.0 MCHC 31.6 RDW Std Deviation 53.1 H Plt Count 203 Neut % (Auto) 76 Lymph % (Auto) 17 [place] % (Auto) 5 Eos % (Auto) 1 Baso % (Auto) 0 Neut # (Auto) 7.7 Lymph # (Auto) 1.7 [place] # (Auto) 0.5 Eos # (Auto) 0.1 Baso # (Auto) 0.0 Immature Gran # (Auto) 0.07 H Absolute Nucleated RBC 0.00 Immature Gran % 1 H Nucleated RBC % 0 Puncture Site Right Radial ABG pH 7.40 ABG pCO2 51 H ABG pO2 64 L ABG HCO3 32 H ABG O2 Saturation 93 ABG Base Excess 5 H FiO2 21 Sodium 139 Potassium 3.8 Chloride 101 Carbon Dioxide 30.8 Anion Gap 7 BUN 19 Creatinine 0.8 Estim Creat Clear Calc 171.3 eGFR > 60 BUN/Creatinine Ratio 24 H Glucose 92 Calculated Osmolality 279 Calcium 8.2 L Corrected Calcium 8.7 Phosphorus 3.5 Magnesium 2.1 Total Bilirubin 0.5 AST 15 ALT 49 Alkaline Phosphatase 65 Total Protein 5.6 L Albumin 3.4 L Globulin 2.2 L Albumin/Globulin Ratio 1.5 ABG Interpretation ABG results: 07/24/25 07/25/25 07/25/25 23:47 02:20 04:08 ABG pH 7.31 L 7.29 L ABG pCO2 64 H 67 H ABG pO2 71 L 52 L* ABG HCO3 32 H 32 H ABG O2 Saturation 93 84 L ABG Base Excess 3 3 VBG pH 7.35 VBG pCO2 58 H D VBG pO2 58 VBG Base Excess 4 H 07/25/25 07/25/25 07/25/25 05:08 07:18 09:35 ABG pH 7.29 L 7.31 L 7.31 L ABG pCO2 67 H 62 H 66 H ABG pO2 71 L 83 52 L* D ABG HCO3 32 H 31 H 33 H ABG O2 Saturation 93 96 85 L ABG Base Excess 3 3 4 H VBG pH VBG pCO2 VBG pO2 VBG Base Excess 07/25/25 07/26/25 07/27/25 13:50 04:37 05:00 ABG pH 7.35 7.41 7.40 ABG pCO2 58 H 52 H 51 H ABG pO2 101 D 66 L D 64 L ABG HCO3 32 H 33 H 32 H ABG O2 Saturation 98 94 93 ABG Base Excess 5 H 7 H 5 H VBG pH VBG pCO2 VBG pO2 VBG Base Excess Quality Measures Quality Measures none Assessment & Plan Assessment Current Active Medications: Generic Name Dose Route Start Last Admin Trade Name Freq PRN Reason Stop Dose Admin Acetaminophen 1,000 mg 07/26/25 08:33 Acetaminophen 500 Mg Tablet PO 08/24/25 02:46 Q6H PRN Fever >100 or pain Albuterol/Ipratropium 3 ml 07/25/25 03:00 07/27/25 06:35 Albuterol/Ipratropium (Duoneb) Rt Katarina 3 Ml Nebu INH 08/24/25 02:59 3 ml Q4HRRT JEANNE Administration Atorvastatin Calcium 20 mg 07/25/25 21:00 07/26/25 20:15 Atorvastatin Calcium 20 Mg Tablet PO 08/24/25 20:59 20 mg HS JEANNE Administration Carvedilol 6.25 mg 07/25/25 17:30 07/27/25 08:49 Carvedilol 3.125 Mg Tablet GT 08/24/25 17:29 6.25 mg BIDWM JEANNE Administration Dextrose 25 ml 07/25/25 03:53 Dextrose 50%-Water Inj 50 Ml Syringe IV 08/24/25 03:52 Q15MIN PRN BG 50-70 responsive npo pt Dextrose 50 ml 07/25/25 03:53 Dextrose 50%-Water Inj 50 Ml Syringe IV 08/24/25 03:52 Q15MIN PRN BG <50 OR BG <70 & pt unresponsive Enoxaparin Sodium 40 mg 07/25/25 09:00 07/27/25 09:49 Enoxaparin Sod Inj 60 Mg/0.6 Ml Syringe SC 08/08/25 08:59 40 mg BID JEANNE Administration Furosemide 20 mg 07/25/25 09:00 07/27/25 08:50 Furosemide 20 Mg Tablet GT 08/24/25 08:59 20 mg QAM JEANNE Administration Gemfibrozil 600 mg 07/25/25 09:00 07/27/25 08:50 Gemfibrozil 600 Mg Tablet PO 08/24/25 08:59 600 mg BID JEANNE Administration Glucagon 1 mg 07/25/25 03:53 Glucagon Inj 1 Mg Vial IM Q15MIN PRN BG <70, and no IV access Haloperidol 10 mg 07/25/25 09:00 07/27/25 08:51 Haloperidol 5 Mg Tablet PO 08/24/25 08:59 10 mg BID JEANNE Administration Ceftriaxone Sodium/Dextrose 1 gm in 50 mls @ 100 mls/hr 07/25/25 05:13 07/27/25 09:46 Rocephin/D5w 1gm Iv Premix IV 08/01/25 05:12 100 mls/hr QDAY JEANNE Administration Azithromycin 500 mg/ Sodium 250 mls @ 250 mls/hr 07/25/25 06:05 07/27/25 09:46 Chloride IV 08/01/25 06:04 250 mls/hr QDAY JEANNE Administration Fentanyl Citrate 2,500 mcg in 250 mls @ 2.5 mls/hr 07/26/25 10:11 07/27/25 10:05 Sublimaze Inj 2,500 Mcg/250 Ml Bag IV 07/30/25 02:32 0 mcg/hr On Hold: 07/27/25 09:58 .Q24H PRN 0 mls/hr PER PROTOCOL Titration Protocol 25 MCG/HR Propofol 1,000 mg in 100 mls @ 4.627 mls/hr 07/26/25 10:11 07/27/25 10:05 Diprivan Ivpb IV 08/24/25 02:32 0 mcg/kg/min On Hold: 07/27/25 09:58 .[id number] PRN 0 mls/hr PER PROTOCOL Titration Protocol 5 MCG/KG/MIN Dexmedetomidine/Sodium Chloride 400 mcg in 100 mls @ 7.805 mls/hr 07/27/25 09:58 07/27/25 10:04 Precedex Ivpb IV 08/26/25 09:57 0.2 mcg/kg/hr .[id number] PRN 7.805 mls/hr Per PROTOCOL Administration Protocol 0.2 MCG/KG/HR Insulin Human Lispro 0 unit 07/25/25 06:00 07/27/25 06:00 Insulin Lispro (Admelog) 1 Unit/0.01 Ml Unit SC 08/24/25 05:59 Not Given Q6H JEANNE Protocol Ondansetron HCl 4 mg 07/25/25 02:47 Ondansetron Inj 2 Mg/Ml Inj 2 Ml IVP 08/24/25 02:46 Q6H PRN NAUSEA OR VOMITING Protocol Pantoprazole Sodium 40 mg 07/25/25 09:00 07/27/25 09:49 Pantoprazole Inj 40 Mg Vial IVP 08/24/25 08:59 40 mg QDAY JEANNE Administration Sodium Chloride 3 ml 07/24/25 23:43 Sodium Chloride Rt Katarina 0.9% 3 Ml Nebu INH 08/23/25 23:42 PRN PRN SOLN Plan Patient is a 44 years old male with PMH of morbid obesity, schizophrenia, hypertension, T2DM, BHAVESH on CPAP, and obesity hypoventilation syndrome on 2 L baseline O2 who was initially was admitted to ICU due to acute on chronic hypoxic hypercapnic respiratory failure due to COPD exacerbation in the setting of COVID-pneumonia requiring intubation for airway protection. No overnight events. Patient was examined at bedside; he remains intubated on spontaneous pressure support mode and appears able to breathe normally. Due to the need for a respiratory drive to trigger breaths on spontaneous pressure support mode, the decision was made to switch patient's sedation regimen from propofol and fentanyl to Precedex with the goal of maintaining RASS of 0. Sputum culture grew Enterobacter aerogenes which was susceptible to ceftriaxone (patient's current antibiotic regimen). Currently plan to have patient sit up and receive both Mucomyst and chest PT to the area of lobar consolidation (lower left lobe) to improve its condition before another extubation attempt to BiPAP is made tomorrow. 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 twice daily RRx: -No overt signs of breakthrough psychosis noticed during sedation vacation CVS #History of primary hypertension Dx: -ECHO 03/2025: The transthoracic study is normal by two-dimensional, color flow imaging and Doppler interrogation. Normal left ventricular size and function. Normal right ventricle function. Approximate ejection fraction is 60%. Trace mitral and trace tricuspid regurgitation No wall motion abnormalities Left atrial diameter normal, no diastolic dysfunction noted per se in echo. -At home on Coreg and Lasix Rx: ?Continue home medication Coreg 6.25 mg p.o. twice daily ?Continue home medication Lasix 20 mg p.o. daily RRx: -Blood pressures today have been well-controlled, ranging mostly between 105-130/55-70 Respiratory #Acute hypercarbic respiratory failure, intubated and on pressure support 03/11/35% #Community-acquired pneumonia #History of BHAVESH/OHS Patient is obese with a BMI of 52 and has a reported history of BHAVESH and OHS which is consonant with his observed body habitus and baseline hypercarbia from previous ABGs. At home, he is on 2L O2 via NC at baseline and BiPAP at night. From the documentation, it appears that patient presented with shortness of breath that was not amenable to BiPAP treatment and he became lethargic requiring intubation. On exam, he appeared tachypneic and dyspneic with almost no air entry on auscultation. At that time, it was suspected to be COPD exacerbation; however, his pCO2 was only mildly elevated at 64 from his baseline 54 and unlikely to explain his lethargy. A more likely explanation would be that his airway collapsed, in the setting of OHS and BHAVESH, due to increased positive pressure and him not receiving enough EPAP support on the BiPAP. Dx: -07/26 ABG showed pH 7.41, pCO2 52, pO2 66, HCO3 33 (compared to pH 7.31, pCO2 64, pO2 71, and HCO3 33 upon ICU admission) -07/25 CXR consistent with chronic low lung volumes and left lower lobe atelectasis versus pneumonia with consolidation -07/25 sputum culture grew 1+ GNR (Enterobacter aerogenes) and Gram stain showed 1+ GPC -07/24 BCx's both negative after 24 hours -MRSA screen negative Rx: -Treat left lower lobe consolidation with percussive chest CT -Mucomyst w/ DuoNebs q4HR today -Continue antibiotic treatment for pneumonia as outlined in the ID section -Will attempt extubation to BiPAP once left lower lobe consolidation has improved RRx: -Patient failed extubation 48 hours ago, is known to desaturate fairly quickly, and continues to have left lower lobe consolidation. Gastrointestinal #Transaminitis (resolved) DDx: Secondary to statin, recent remdesivir use, [facility] Dx: AST down-trended to 15 from 22, ALT down-trended to 49 from 5 Renal No active problem. Endocrine Metabolic syndrome. NIDDM type II [6.6%] [facility] Patient has metabolic syndrome, likely due to poor diet and antipsychotics. BMI 54. History of diabetes, hyperlipidemia (controlled with meds), morbid obesity. Rx: ? Insulin sliding scale ? Continue home atorvastatin and gemfibrozil Infectious Disease Community-acquired pneumonia History of COVID-19 infection Allegedly, on 07/15, patient tested positive for COVID-19 at his PCPs office. He was prescribed a course of steroids to which his symptoms were refractory. Subsequently, he presented to the ED and was hospitalized from 07/19 - 07/23 during which he was treated with remdesivir, ceftriaxone, azithromycin, and dexamethasone. He was discharged on a 5-day course of prednisone 40 mg p.o. Dx: -07/15 COVID positive -Chest x-ray showed bilateral reticular opacifications, increased hilar markings, left base consolidation with blunting of left costophrenic angle. Rx: ? Continue ceftriaxone 1 g IV daily started on [07/25? ? Continue azithromycin 500 mg IV daily started on [07/25? Integumentary No active problems ICU Health Maintenance Disposition: Patient remains in need of intubation and ICU-level management. Diet: Tube feed started w/ water flushes @ 30 mL/hr DVT ppx: Enoxaparin 40 mg SC twice daily GI ppx: Protonix 40 mg qD Mechanical Ventilation: Yes, Mode: Spontaneous, 5/5/35% Sedation: Precedex to maintain RASS 0 Harden: Condom (started 07/25/25 - Code status: FULL CODE Plan of care discussed with Attending Dr. Nico Hernandez, DO Internal Medicine, PGY-1
--- NOTE | 2025-07-27 10:53 | ESPR_ITS ---
Documentation for date of: 07/27/25 Subjective Subjective Interval history: This is a 44-year-old gentleman admitted to the ICU with acute hypercarbic respiratory failure. He is currently intubated. He was extubated on the however failed extubation after about 30 minutes and was quickly reintubated. Today he is awake alert and able to follow commands. He remains on PSV however rapidly desats when laying flat or moved. Chest x-ray continues to show left lower lobe consolidation. He is afebrile. Critical Care Note Critical care time (min.): 40 Exam Vital Signs Temp Pulse Resp BP Pulse Ox O2 Del Method O2 Flow Rate 97.3 F 76 17 118/64 92 L Mechanical Ventilation 35 07/27/25 08:01 07/27/25 10:00 07/27/25 06:35 07/27/25 10:00 07/27/25 10:00 07/27/25 04:01 07/26/25 08:30 FiO2 35 07/27/25 08:00 Narrative Exam General-no acute distress, awake alert and oriented, following commands, GCS 11 T, morbidly obese HEENT-normocephalic, atraumatic, sclera icteric, oral mucosa is hydrated, ET tube and OG tube in place Chest-lungs clear to auscultation bilaterally though extremely diminished due to body habitus, heart rate regular and rhythmic, no bruits or murmurs auscultated, no increased work of breathing Abdomen-soft, obese, nontender, bowel sounds present Extremities-minimal edema of lower extremities, pulses palpable, no clubbing or mottling, moves all 4 extremities Ventilator PSV Drips Fentanyl propofol Physical Exam Completion Physical Exam Complete?: Yes Objective - [employer] Labs 07/28/25 04:52 07/28/25 04:52 Labs: Laboratory Results - last 24 hr 07/27/25 07/27/25 04:46 05:00 WBC 10.2 RBC 4.46 L Hgb 12.5 L Hct 39.5 L MCV 89 MCH 28.0 MCHC 31.6 RDW Std Deviation 53.1 H Plt Count 203 Neut % (Auto) 76 Lymph % (Auto) 17 [place] % (Auto) 5 Eos % (Auto) 1 Baso % (Auto) 0 Neut # (Auto) 7.7 Lymph # (Auto) 1.7 [place] # (Auto) 0.5 Eos # (Auto) 0.1 Baso # (Auto) 0.0 Immature Gran # (Auto) 0.07 H Absolute Nucleated RBC 0.00 Immature Gran % 1 H Nucleated RBC % 0 Puncture Site Right Radial ABG pH 7.40 ABG pCO2 51 H ABG pO2 64 L ABG HCO3 32 H ABG O2 Saturation 93 ABG Base Excess 5 H FiO2 21 Sodium 139 Potassium 3.8 Chloride 101 Carbon Dioxide 30.8 Anion Gap 7 BUN 19 Creatinine 0.8 Estim Creat Clear Calc 171.3 eGFR > 60 BUN/Creatinine Ratio 24 H Glucose 92 Calculated Osmolality 279 Calcium 8.2 L Corrected Calcium 8.7 Phosphorus 3.5 Magnesium 2.1 Total Bilirubin 0.5 AST 15 ALT 49 Alkaline Phosphatase 65 Total Protein 5.6 L Albumin 3.4 L Globulin 2.2 L Albumin/Globulin Ratio 1.5 Assessment & Plan Additional Plan Additional Plan: In brief this is a 44-year-old gentleman admitted to the ICU with acute hypercarbic respiratory failure a/p [employer] Psych disorder-on Haldol at baseline -Given that he is currently on propofol and fentanyl for sedation as well as PSV we will stop his propofol and fentanyl and transition him to Precedex for sedation CV Stable Resp Acute hypercarbic respiratory failure-intubated and on pressure support 5/5/35% -Failed extubation 48 hours ago -Desats fairly quickly -Continues to have left lower lobe consolidation -Will attempt to improve left lower lobe prior to attempting extubation once more Pneumonia-currently on antibiotics -Cultures growing enterobacter -Start left lower lobe percussive therapy -Mucomyst with DuoNebs every 4 hours today Chronic respiratory acidosis with compensatory metabolic alkalosis COVID-patient originally presented about a week ago and was diagnosed with COVID. Completed treatment at that time and returned home. Renal Stable GI GI prophylaxis-PPI Endo Stable Heme Anemia-mild, no active bleeding noted, monitor DVT prophylaxis-Lovenox 40 twice daily ID stable Case discussed with ICU team Labs, imaging and records reviewed Approximately 40 critical community-acquired evaluation, exam, review, intervention, discussion formulation plan of care physical p.o. patient with acute hypercarbic respiratory failure currently intubated and on mechanical ventilation Provider Notation Provider Notation: Although this document has been carefully reviewed, there may still be some phonetic and other typographical errors. These errors are purely grammatical due to imperfections in the software program and should not be construed in any way to compromise the substance of the patient's medical care during this visit. Thank you for the opportunity and privilege in assisting you with this patient's care and management.
--- NOTE | 2025-07-27 12:58 | PC.SS ---
Update: Patient is intubated. Not receiving pressor support. Patient on IV antibiotics. OG tube in place for feedings. Patient is afebrile.
--- NOTE | 2025-07-27 13:07 | PC.SS ---
WEB SITE MANAGER conducted phone contact with patient?s sister, Jany Santa ; to conduct initial assessment and to discuss discharge planning.? Patient currently admitted to the ICU on mechanical ventilator.? Patient resides at home with mother, Lakisha Kirby.? Patient does not utilize DME to assist with ambulation.? Patient does not utilize home oxygen.? Patient utilizes a CPAP for nocturnal use.? Patient is able to complete ADL?s independently.? Patient?s surrogate medical decision maker is sister, Jany Santa.? Patient?s PCP is Rod Hernandez.? Patient?s netbackup administrator is Timoteo Trejo.? Patient does not participate with dialysis.? Plan is for the patient to return home at the time of discharge.? Family will provide transportation on behalf of the patient.? No further discharge needs identified by the patient.? No further intervention required at this time, social media marketing specialist will be available to address any further concerns.? Next of Kin: Jany Santa D/C Plan: Home
--- NOTE | 2025-07-27 13:09 | PC.SS ---
Patient's sister requesting that patient's CPAP settings be aligned with hospital BI-PAP settings. SPECIMEN PREPARATION ASSISTANT informed sister that CPAP vendor would need to be contacted to arrange request since CPAP is home DME. Vendor is [employer].
[2025-07-27] MEDS: DEXMEDETOMIDINE 400 MCG IVPB 400 MCG/100 ML BAG 23.415 MCG IV ×3 (14:00→22:45)
[2025-07-27] MEDS: ACETYLCYSTEINE SOL 20% 4 ML NEBU 3 ML INH ×2 (18:07→22:26)
[2025-07-27] MEDS: ATORVASTATIN CALCIUM 20 MG TABLET PO (20:34)
[2025-07-28] VITALS (37 sets, daily range): BP systolic 105–159; BP diastolic 66–95; PULSE 74–96; RESP 12–61; TEMP 36.1–37.1; O2SAT 91–100; BMI 50.1
[2025-07-28] MEDS: ALBUTEROL/IPRATROPIUM (Duoneb) RT SOL 3 ML NEBU INH ×6 (03:41→22:35)
[2025-07-28] MEDS: ACETYLCYSTEINE SOL 20% 4 ML NEBU 3 ML INH ×6 (03:41→22:35)
[2025-07-28] MEDS: DEXMEDETOMIDINE 400 MCG IVPB 400 MCG/100 ML BAG 15.61 MCG IV (04:42)
[2025-07-28 05:24] LABS: Basophils # (Auto) 0.0 Thou/mm3 (0.0-0.2); Basophils % (Auto) 0 % (0-2.5); Eosinophils # (Auto) 0.5 Thou/mm3 (0.0-0.5); Eosinophils % (Auto) 4 % (0-10); Hematocrit 43.3 % (41.0-53.0); Hemoglobin 14.2 g/dL (13.5-16.0); Immature Granulocytes Auto 0.05 Thou/mm3 (0.00-0.00); Lymphocytes # (Auto) 1.5 Thou/mm3 (1.0-4.8); Lymphocytes % (Auto) 13 % (10-50); Mean Corpuscular HGB Conc 32.8 g/dl (31.0-37.0); Mean Corpuscular Hemoglobin 28.2 pg (25.0-35.0); Mean Corpuscular Volume 86 fL (80-100); Monocytes # (Auto) 0.6 Thou/mm3 (0.0-0.8); Monocytes % (Auto) 5 % (0-12); Neutrophils # (Auto) 9.0 Thou/mm3 (1.8-7.7); Neutrophils % (Auto) 78 % (37-80); Nucleated Red Blood Cell # 0.00 Thou/mm3 (0.00-0.00); Nucleated Red Blood Cell % 0 /100 WBC (0); Platelet Count 204 Thou/mm3 (140-440); RDW Standard Deviation 50.4 fL (35.1-43.9); Red Blood Count 5.04 Miln/mm3 (4.50-5.90); White Blood Count 11.6 Thou/mm3 (3.8-10.6)
[2025-07-28 05:27] LABS: Base Excess 4 (-3-3); HCO3 29 mEq/L (20-26); Inspired Oxygen, FIO2 30 %; O2 Saturation 93 % (91-98); PCO2 43 mmHg (32.0-48.0); PO2 61 mmHg (83-108); pH, Arterial 7.44 (7.35-7.45)
[2025-07-28 05:28] LABS: Allen Test Performed/OK; Puncture Site Left Radial
[2025-07-28 05:57] LABS: Alanine Aminotransferase 39 U/L (10-49); Albumin, Serum 3.8 gm/dL (3.5-5.0); Albumin/Globulin Ratio 1.5 (1.2-2.2); Alkaline Phosphatase 74 U/L (46-116); Anion Gap 9 (7-16); Aspartate Amino Transferase 12 U/L (0-34); BUN/Creatinine Ratio 15 Ratio (12-20); Bilirubin,Total 0.8 mg/dL (0.3-1.2); Blood Urea Nitrogen 12 mg/dL (9-23); Calcium 8.7 mg/dL (8.3-10.6); Calcium (Corrected) 8.9 mg/dL (8.5-10.1); Carbon Dioxide 27.1 mMol/L (20.0-31.0); Chloride 100 mMol/L (98-107); Creatinine (Component) 0.8 mg/dL (0.6-1.3); Estimated Creatinine Clearance 171.3 mL/min (>60); Globulin 2.6 gm/dL (2.3-3.5); Glucose 108 mg/dL (74-106); Magnesium 1.8 mg/dL (1.6-2.6); Osmolality,Calculated 272 (275-295); Phosphorous 3.2 mg/dL (2.4-5.1); Potassium 3.9 mMol/L (3.4-5.1); Sodium 136 mMol/L (136-145); Total Protein 6.4 gm/dL (5.7-8.2); eGFR > 60 See Note
--- NOTE | 2025-07-28 06:00 | XR_ITS ---
Examination: AP chest single view Technique one AP portable semiupright chest single view Date and time: July 18, 2025 1950 hrs. Comparison: July 25, 2025 Indications: Hypoxic respiratory failure with pneumonia left base and heart failure on earlier chest imaging Findings: Moderate enlargement cardiac contour Prominent vascular congestion Endotracheal tube tip 3 cm above jennifer Milder pneumonia left base Prominent osteopenia Orogastric tube in the stomach tip below the level film Impression: Improvement in left base pneumonia Mild heart failure. Endotracheal tube tip 3.1 cm above jennifer
[2025-07-28] MEDS: EPINEPHrine RT SOL 0.5 ML NEBU INH (08:28)
[2025-07-28] MEDS: AZITHROMYCIN INJ 500 MG in SODIUM CHLORIDE 0.9% 250 ML 250 ML 250 MG IV (08:37)
[2025-07-28] MEDS: ENOXAPARIN SOD INJ 60 MG/0.6 ML SYRINGE 40 MG SC ×2 (08:37→20:17)
[2025-07-28] MEDS: cefTRIAXone/D5w 1gm IV premix 1 GM/50 ML BAG IV (08:37)
--- NOTE | 2025-07-28 08:39 | PD.INTPROG ---
Documentation for date of: 07/28/25 Subjective Subjective Interval history: This is a 44-year-old gentleman admitted to the ICU with acute hypercarbic respiratory failure. He is currently intubated. He was extubated on the however failed extubation after about 30 minutes and was quickly reintubated. Today he is awake alert and able to follow commands. He remains on PSV however rapidly desats when laying flat or moved. Chest x-ray continues to show left lower lobe consolidation. He is afebrile. 07/28- no acute overnight events, awake alert and follows commands, good UOP and is net neg 2lts over the last 24hrs and net neg ~4lts since hospital arrival Critical Care Note Critical care time (min.): 38 Exam Vital Signs Temp Pulse Resp BP Pulse Ox O2 Del Method O2 Flow Rate 98.8 F 78 28 H 123/66 95 Mechanical Ventilation 35 07/28/25 04:00 07/28/25 06:07 07/28/25 07:55 07/28/25 06:00 07/28/25 06:07 07/28/25 04:00 07/26/25 08:30 FiO2 30 07/28/25 07:55 Narrative Exam Gen- NAD, morbidly obese, GCS 11T, awake and alert HEENT- NC/AT, mucosa hydrated, sclera anicteric, ETT/OGT in place Chest- LCTAB , diminished, HRRR, no increase in WOB Abd- obese, s/nt/bs+ Ext- min edema LE, pulses palp, no clubbing, no mottling, moves all 4 Vent PSV Drips precedex Physical Exam Completion Physical Exam Complete?: Yes Objective - Trimming Assembler Labs 07/28/25 04:52 07/28/25 04:52 Labs: Laboratory Results - last 24 hr 07/28/25 07/28/25 04:52 05:14 WBC 11.6 H RBC 5.04 Hgb 14.2 Hct 43.3 MCV 86 MCH 28.2 MCHC 32.8 RDW Std Deviation 50.4 H Plt Count 204 Neut % (Auto) 78 Lymph % (Auto) 13 [place] % (Auto) 5 Eos % (Auto) 4 Baso % (Auto) 0 Neut # (Auto) 9.0 H Lymph # (Auto) 1.5 [place] # (Auto) 0.6 Eos # (Auto) 0.5 Baso # (Auto) 0.0 Immature Gran # (Auto) 0.05 H Absolute Nucleated RBC 0.00 Immature Gran % 0 Nucleated RBC % 0 Puncture Site Left Radial ABG pH 7.44 ABG pCO2 43 ABG pO2 61 L ABG HCO3 29 H ABG O2 Saturation 93 ABG Base Excess 4 H FiO2 30 Sodium 136 Potassium 3.9 Chloride 100 Carbon Dioxide 27.1 Anion Gap 9 BUN 12 Creatinine 0.8 Estim Creat Clear Calc 171.3 eGFR > 60 BUN/Creatinine Ratio 15 Glucose 108 H Calculated Osmolality 272 L Calcium 8.7 Corrected Calcium 8.9 Phosphorus 3.2 Magnesium 1.8 Total Bilirubin 0.8 AST 12 ALT 39 Alkaline Phosphatase 74 Total Protein 6.4 Albumin 3.8 Globulin 2.6 Albumin/Globulin Ratio 1.5 Assessment & Plan Additional Plan Additional Plan: In brief this is a 44-year-old gentleman admitted to the ICU with acute hypercarbic respiratory failure 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 stridor -> given racemic epi - felt to have some degree of upper airway obstruction and switched to CPAP from bipap with improved breathing pattern and resolution of upper airway obstruction sounds - fu on ABG Pneumonia-currently on antibiotics -Cultures growing enterobacter -received percussive therapy to LLL - CXR today shows improved aeration of LLL Chronic respiratory acidosis with compensatory metabolic alkalosis COVID-patient originally presented about a week ago and was diagnosed with COVID. Completed treatment at that time and returned home. Renal Stable GI GI prophylaxis-PPI Endo Stable Heme Anemia-mild, no active bleeding noted, monitor DVT prophylaxis-Lovenox 40 twice daily ID stable Case discussed with ICU team monitor post extubation and if remains stable ok for downgrade would recommend ENT eval for laryngoscopy to eval upper airway Labs, imaging and records reviewed Approximately 38 critical community-acquired evaluation, exam, review, intervention, discussion and formulation of plan of care for this critically ill patient with acute hypercarbic respiratory failure currently intubated and on mechanical ventilation Provider Notation Provider Notation: Although this document has been carefully reviewed, there may still be some phonetic and other typographical errors. These errors are purely grammatical due to imperfections in the software program and should not be construed in any way to compromise the substance of the patient's medical care during this visit. Thank you for the opportunity and privilege in assisting you with this patient's care and management.
--- NOTE | 2025-07-28 09:36 | ESPR_ITS ---
<Statement entered by Ced Liu MD - 07/28/25 16:31> Senior Resident Attestation: I supervised/discussed management plan with internet sales representative physician Dr. Hernandez, and was involved in the care of this patient. I personally saw and examined the patient and discussed the assessment and plan with the entire medicine team, including my attending. I agree with the assessment and plan as documented. Patient was seen and examined at bedside. No acute overnight events. Today morning patient appears comfortable breathing on pressure support 5/5, his sedation was turned off and patient was successfully extubated to CPAP 12. Initially was tachypneic with snoring like sounds, however was maintaining good saturation, he was given racemic epinephrine and short-term Precedex drip was started with improvement this in his condition. He was eventually successfully transition to nasal cannula with good saturation on 4 L. Will continue close observation in ICU and downgrade him to telemetry tomorrow if his condition remains stable. Will continue him on CPAP every time he sleeps and at night. Patient's care was discussed with attending physician, Dr. Walsh. Ced Liu MD PGY-3. Documentation for date of: 07/28/25 Subjective Subjective Interval history: The patient is a 44-year-old male with a medical history of morbid obesity, schizophrenia, hypertension, type 2 diabetes mellitus, obstructive sleep apnea , obesity hypoventilation syndrome (on 2 L oxygen at baseline), COPD, and a recent history of COVID-pneumonia, for which he was discharged from the hospital. He presents to the emergency department with worsening shortness of breath. History was primarily obtained from the ED sign-out and chart review. Upon presentation, the patient was hypoxic. After receiving a breathing treatment, his oxygen saturation significantly improved, but he remained tachypneic and appeared to be in acute distress. The patient was placed on BiPAP but did not tolerate it well and progressively worsened, including a decline in neurological status. He became lethargic, though arousable. Physical exam revealed distant breath sounds bilaterally, though auscultation was challenging due to his body habitus. According to the ED sign-out, the patient denied chest pain, headache, vision changes, or any other symptoms apart from dyspnea. Initial labs (CBC and CMP) were unremarkable. Chest X-ray revealed pneumonia, and a COVID-19 bedside test was positive. A VBG showed a pH of 7.36, pCO2 of 58, and an O2 saturation of 89%. Despite being placed on BiPAP, the patient?s mental status continued to deteriorate, and he became more tachypneic, using accessory muscles to breathe. An ABG revealed worsening respiratory status: pH 7.31, pCO2 64, pO2 71, and bicarbonate 32. Given the worsening condition, the decision was made to intubate for airway protection. The patient was subsequently admitted to the ICU for [id number] hypoxic hypercapnic respiratory failure, secondary to a COPD exacerbation in the setting of COVID-pneumonia. 07/25/2025: Patient had no events overnight. 68.3, output of 450 cc, balance - 389 cc. Patient on low-dose fentanyl and propofol at RASS of 0. He follows commands appropriately and currently watching Television. End-tidal CO2 54 while on AC VC. Chest x-ray showed bilateral reticular opacities, poor respiratory effort with reduced lung volumes, left base consolidation with blunting of costophrenic angle. WBC 13.6, K5, BUN 15, CR 0.8, magnesium 2, AST 41, ALT 82, HbA1c 6.6%. Will attempt SAT and SBT. Once patient tolerates SBT will switch to Pressure support and repeat a blood gas. Resumed his home medication via OG. 07/26/2025: No overnight events. Patient was examined at bedside; he remains intubated on ACMV (Volume 250, RR 20, and PEEP 8) while being sedated with propofol and fentanyl for a goal RASS of 0. He awakens to voice but quickly returns to sleep afterwards. ABG lab values this morning appear relatively improved with pH 7.41, pCO2 52, pO2 66, and HCO3 33 and patient's transaminitis is also improving. The current plan (besides daily SATs for timely sedation weaning) is to keep patient on spontaneous mode (pressure support) and to monitor his respiratory status on that mode due to the likelihood that his failure to be extubated yesterday was primarily 2/2 airway obstruction 2/2 obesity hypoventilation syndrome in the setting of increased metabolic demand from his ongoing pneumonia. His progress for respiratory improvement will likely be more accurately evaluated on pressure support due to this being the limiting reagent of adequate oxygenation and ventilation; as such, we will monitor his breathing as we slowly wean pressure support and PEEP to guide our timeline and expectations concerning punctual extubation. Once patient seems able to sustain comfortable breathing without any pressure support or PEEP (passes SBT) and demonstrates a good Negative Inspiratory Force (below -25 cm H2O) on testing, another extubation attempt will be made. If, after a few hours s/p extubation, patient continues to demonstrate adequate respiratory functions and shows no signs of post-extubation apneic episodes, he will be deemed stable enough for downgrade to floors. He will also be restarted on tube feeds today with water flushes running @ 30 mL/hr, and continue IV ceftriaxone and IV azithromycin to treat his pneumonia (07/25 sputum culture grew 1+ GNR and Gram stain showed 1+ GPC, low concern/risk for Pseudomonas aeruginosa). 07/27/25: No overnight events. Patient was examined at bedside; he remains intubated on spontaneous pressure support mode and appears able to breathe normally. Due to the need for a respiratory drive to trigger breaths on spontaneous pressure support mode, the decision was made to switch patient's sedation regimen from propofol and fentanyl to Precedex with the goal of maintaining RASS of 0. Sputum culture grew Enterobacter aerogenes which was susceptible to ceftriaxone (patient's current antibiotic regimen). Currently plan to have patient sit up and receive both Mucomyst and chest PT to the area of lobar consolidation (lower left lobe) to improve its condition before another extubation attempt to BiPAP is made tomorrow. 07/28/25: No overnight events. Today, patient's CXR showed improvement of the left base pneumonia and this, along with patient's promising weaning parameters, led to the decision to extubate patient to BiPAP this morning. After being extubated, however, patient was noted to making snoring noises that did not seem to be stridor; as a result, he was given racemic epinephrine for therapeutic bronchodilation. Due to suspicion that patient's primary respiratory issue was upper airway obstruction 2/2 compression by excess adipose tissue or other structural anatomy, patient switched from BiPAP to CPAP instead which seemed to improve his respiratory status as well as resolve the snoring sounds suggesting upper airway obstruction. Patient's repeat ABG in the afternoon s/p extubation were reassuring; his blood pH was 7.40, pCO2 was 44, pO2 was 82, and HCO3 was 27. He was then taken off of CPAP and put on nasal cannula which he also seemed to tolerate albeit with some return of the snoring noises that he exhibited just s/p extubation. Current plan moving forward is to continue mobilizing the patient, have PT evaluate him, keep him awake, and continue to monitor his respiratory status with repeat ABGs should patient display signs of lethargy. If his respiratory status continues to stay within acceptable parameters overnight, he may be cleared for downgrade to floors tomorrow. Exam Vital Signs Temp Pulse Resp BP Pulse Ox O2 Del Method O2 Flow Rate 98.8 F 79 25 H 138/89 H 96 Mechanical Ventilation 35 07/28/25 04:00 07/28/25 09:01 07/28/25 08:33 07/28/25 09:01 07/28/25 09:01 07/28/25 04:00 07/26/25 08:30 FiO2 40 07/28/25 08:33 Narrative Exam General: Somnolent, morbidly obese male in NAD. Opens eyes to voice and understands and obeys commands. Skin: Warm, dry, intact, no obvious rash. Head: Normocephalic, atraumatic. Eyes: Pupils equal and round, however pupil reactivity to light could not be appreciated due to patient not opening his eyes wide enough during testing. EOMI. Anicteric. Ears: Hearing grossly intact. Nose: No nasal discharge. Mouth/Throat: ET and OG tube in place. Red-tinged secretions noted in ET tube (changed from yellow color yesterday). Oral mucosa moist. No obvious lesions in oropharynx. Cardiovascular: Difficult to auscultate clearly due to body habitus and ventilation but seemingly regular rate and rhythm, no murmur, no JVD or carotid bruits. +S1/S2. Respiratory: Extubated and on nasal cannula. Lung bradley clear to auscultation bilaterally but diminished/muffled. No wheezing, increased work of breathing, or accessory muscle use observed. Gastrointestinal: Soft, nontender, obese, no palpable masses. No guarding or rebound tenderness. Peristaltic bowel sounds normoactive. Extremities: Dark, hyperpigmented bone spur on dorso-medial surface of R foot. Bilateral dryness and flakiness of feet, especially towards the plantar surfaces. Untrimmed toenails. Significant darkening and thickening of L hallux nail. Long, curved, claw-like nail on L pinky toe. Long, untrimmed R hallux nail. Medial deviation of nails observed on L third, fourth, and pinky toe. Elongated, hooded appearance of nails on L fourth and pinky toe. Scabbed abrasion near base of R third toe. No significant deformities. Some edema of lower extremities, no cyanosis, no clubbing, and no mottling. Radial pulse palpable bilaterally. Neuro: No focal deficits observed. No overt cerebellar signs/incoordination. Psychiatric: Cooperative but somnolent. Objective Labs 07/28/25 04:52 07/28/25 04:52 Labs: Laboratory Results - last 24 hr 07/28/25 07/28/25 04:52 05:14 WBC 11.6 H RBC 5.04 Hgb 14.2 Hct 43.3 MCV 86 MCH 28.2 MCHC 32.8 RDW Std Deviation 50.4 H Plt Count 204 Neut % (Auto) 78 Lymph % (Auto) 13 [place] % (Auto) 5 Eos % (Auto) 4 Baso % (Auto) 0 Neut # (Auto) 9.0 H Lymph # (Auto) 1.5 [place] # (Auto) 0.6 Eos # (Auto) 0.5 Baso # (Auto) 0.0 Immature Gran # (Auto) 0.05 H Absolute Nucleated RBC 0.00 Immature Gran % 0 Nucleated RBC % 0 Puncture Site Left Radial ABG pH 7.44 ABG pCO2 43 ABG pO2 61 L ABG HCO3 29 H ABG O2 Saturation 93 ABG Base Excess 4 H FiO2 30 Sodium 136 Potassium 3.9 Chloride 100 Carbon Dioxide 27.1 Anion Gap 9 BUN 12 Creatinine 0.8 Estim Creat Clear Calc 171.3 eGFR > 60 BUN/Creatinine Ratio 15 Glucose 108 H Calculated Osmolality 272 L Calcium 8.7 Corrected Calcium 8.9 Phosphorus 3.2 Magnesium 1.8 Total Bilirubin 0.8 AST 12 ALT 39 Alkaline Phosphatase 74 Total Protein 6.4 Albumin 3.8 Globulin 2.6 Albumin/Globulin Ratio 1.5 ABG Interpretation ABG results: 07/24/25 07/25/25 07/25/25 23:47 02:20 04:08 ABG pH 7.31 L 7.29 L ABG pCO2 64 H 67 H ABG pO2 71 L 52 L* ABG HCO3 32 H 32 H ABG O2 Saturation 93 84 L ABG Base Excess 3 3 VBG pH 7.35 VBG pCO2 58 H D VBG pO2 58 VBG Base Excess 4 H 07/25/25 07/25/25 07/25/25 05:08 07:18 09:35 ABG pH 7.29 L 7.31 L 7.31 L ABG pCO2 67 H 62 H 66 H ABG pO2 71 L 83 52 L* D ABG HCO3 32 H 31 H 33 H ABG O2 Saturation 93 96 85 L ABG Base Excess 3 3 4 H VBG pH VBG pCO2 VBG pO2 VBG Base Excess 07/25/25 07/26/25 07/27/25 13:50 04:37 05:00 ABG pH 7.35 7.41 7.40 ABG pCO2 58 H 52 H 51 H ABG pO2 101 D 66 L D 64 L ABG HCO3 32 H 33 H 32 H ABG O2 Saturation 98 94 93 ABG Base Excess 5 H 7 H 5 H VBG pH VBG pCO2 VBG pO2 VBG Base Excess 07/28/25 05:14 ABG pH 7.44 ABG pCO2 43 ABG pO2 61 L ABG HCO3 29 H ABG O2 Saturation 93 ABG Base Excess 4 H VBG pH VBG pCO2 VBG pO2 VBG Base Excess Quality Measures Quality Measures none Assessment & Plan Assessment Current Active Medications: Generic Name Dose Route Start Last Admin Trade Name Freq PRN Reason Stop Dose Admin Acetaminophen 1,000 mg 07/26/25 08:33 Acetaminophen 500 Mg Tablet PO 08/24/25 02:46 Q6H PRN Fever >100 or pain Acetylcysteine 3 ml 07/27/25 19:00 07/28/25 06:07 Acetylcysteine Katarina 20% 4 Ml Nebu INH 08/26/25 18:59 3 ml Q4HRRT JEANNE Administration Albuterol/Ipratropium 3 ml 07/25/25 03:00 07/28/25 06:07 Albuterol/Ipratropium (Duoneb) Rt Katarina 3 Ml Nebu INH 08/24/25 02:59 3 ml Q4HRRT JEANNE Administration Atorvastatin Calcium 20 mg 07/25/25 21:00 07/27/25 20:34 Atorvastatin Calcium 20 Mg Tablet PO 08/24/25 20:59 20 mg HS JEANNE Administration Carvedilol 6.25 mg 07/25/25 17:30 07/28/25 08:46 Carvedilol 3.125 Mg Tablet GT 08/24/25 17:29 Not Given BIDWM JEANNE Dextrose 25 ml 07/25/25 03:53 Dextrose 50%-Water Inj 50 Ml Syringe IV 08/24/25 03:52 Q15MIN PRN BG 50-70 responsive npo pt Dextrose 50 ml 07/25/25 03:53 Dextrose 50%-Water Inj 50 Ml Syringe IV 08/24/25 03:52 Q15MIN PRN BG <50 OR BG <70 & pt unresponsive Enoxaparin Sodium 40 mg 07/25/25 09:00 07/28/25 08:37 Enoxaparin Sod Inj 60 Mg/0.6 Ml Syringe SC 08/08/25 08:59 40 mg BID JEANNE Administration Furosemide 20 mg 07/25/25 09:00 07/28/25 08:46 Furosemide 20 Mg Tablet GT 08/24/25 08:59 Not Given QAM JEANNE Gemfibrozil 600 mg 07/25/25 09:00 07/28/25 08:46 Gemfibrozil 600 Mg Tablet PO 08/24/25 08:59 Not Given BID JEANNE Glucagon 1 mg 07/25/25 03:53 Glucagon Inj 1 Mg Vial IM Q15MIN PRN BG <70, and no IV access Haloperidol 10 mg 07/25/25 09:00 07/28/25 08:46 Haloperidol 5 Mg Tablet PO 08/24/25 08:59 Not Given BID JEANNE Ceftriaxone Sodium/Dextrose 1 gm in 50 mls @ 100 mls/hr 07/25/25 05:13 07/28/25 08:37 Rocephin/D5w 1gm Iv Premix IV 08/01/25 05:12 100 mls/hr QDAY JEANNE Administration Azithromycin 500 mg/ Sodium 250 mls @ 250 mls/hr 07/25/25 06:05 07/28/25 08:37 Chloride IV 08/01/25 06:04 250 mls/hr QDAY JEANNE Administration Fentanyl Citrate 2,500 mcg in 250 mls @ 2.5 mls/hr 07/26/25 10:11 07/27/25 10:05 Sublimaze Inj 2,500 Mcg/250 Ml Bag IV 07/30/25 02:32 0 mcg/hr On Hold: 07/27/25 09:58 .Q24H PRN 0 mls/hr PER PROTOCOL Titration Protocol 25 MCG/HR Propofol 1,000 mg in 100 mls @ 4.627 mls/hr 07/26/25 10:11 07/27/25 10:05 Diprivan Ivpb IV 08/24/25 02:32 0 mcg/kg/min On Hold: 07/27/25 09:58 .[id number] PRN 0 mls/hr PER PROTOCOL Titration Protocol 5 MCG/KG/MIN Dexmedetomidine/Sodium Chloride 400 mcg in 100 mls @ 7.805 mls/hr 07/27/25 09:58 07/28/25 08:25 Precedex Ivpb IV 08/26/25 09:57 1.2 mcg/kg/hr .[id number] PRN 46.83 mls/hr Per PROTOCOL Titration Protocol 0.2 MCG/KG/HR Magnesium Sulfate 2 gm in 50 mls @ 25 mls/hr 07/28/25 07:53 Magnesium Sulfate Ivpb IV 07/28/25 09:52 X1 ONE Insulin Human Lispro 0 unit 07/25/25 06:00 07/28/25 06:43 Insulin Lispro (Admelog) 1 Unit/0.01 Ml Unit SC 08/24/25 05:59 Not Given Q6H JEANNE Protocol Ondansetron HCl 4 mg 07/25/25 02:47 Ondansetron Inj 2 Mg/Ml Inj 2 Ml IVP 08/24/25 02:46 Q6H PRN NAUSEA OR VOMITING Protocol Pantoprazole Sodium 40 mg 07/25/25 09:00 07/27/25 09:49 Pantoprazole Inj 40 Mg Vial IVP 08/24/25 08:59 40 mg QDAY JEANNE Administration Sodium Chloride 3 ml 07/28/25 08:23 Sodium Chloride Rt Katarina 0.9% 3 Ml Nebu INH 08/27/25 08:22 PRN PRN SOLN Plan Patient is a 44 years old male with PMH of morbid obesity, schizophrenia, hypertension, T2DM, BHAVESH on CPAP, and obesity hypoventilation syndrome on 2 L baseline O2 who was initially was admitted to ICU due to acute on chronic hypoxic hypercapnic respiratory failure due to COPD exacerbation in the setting of COVID-pneumonia requiring intubation for airway protection. No overnight events. Today, patient's CXR showed improvement of the left base pneumonia and this, along with patient's promising weaning parameters, led to the decision to extubate patient to BiPAP this morning. After being extubated, however, patient was noted to making snoring noises that did not seem to be stridor; as a result, he was given racemic epinephrine for therapeutic bronchodilation. Due to suspicion that patient's primary respiratory issue was upper airway obstruction 2/2 compression by excess adipose tissue or other structural anatomy, patient switched from BiPAP to CPAP instead which seemed to improve his respiratory status as well as resolve the snoring sounds suggesting upper airway obstruction. Patient's repeat ABG in the afternoon s/p extubation were reassuring; his blood pH was 7.40, pCO2 was 44, pO2 was 82, and HCO3 was 27. He was then taken off of CPAP and put on nasal cannula which he also seemed to tolerate albeit with some return of the snoring noises that he exhibited just s/p extubation. Current plan moving forward is to continue mobilizing the patient, have PT evaluate him, keep him awake, and continue to monitor his respiratory status with repeat ABGs should patient display signs of lethargy. If his respiratory status continues to stay within acceptable parameters overnight, he may be cleared for downgrade to floors tomorrow. BUS MONITOR #Unspecified psychotic disorder Per chart review patient is on haloperidol at home Rx: -Continue home medication Haloperidol 10 mg p.o. twice daily RRx: -No overt signs of breakthrough psychosis CVS #History of primary hypertension Dx: -ECHO 03/2025: The transthoracic study is normal by two-dimensional, color flow imaging and Doppler interrogation. Normal left ventricular size and function. Normal right ventricle function. Approximate ejection fraction is 60%. Trace mitral and trace tricuspid regurgitation No wall motion abnormalities Left atrial diameter normal, no diastolic dysfunction noted per se in echo. -At home on Coreg and Lasix Rx: ?Continue home medication Coreg 6.25 mg p.o. twice daily ?Continue home medication Lasix 20 mg p.o. daily RRx: -Blood pressures today have been well-controlled Respiratory #Acute hypercarbic respiratory failure, s/p extubation (07/28) #Community-acquired pneumonia #History of BHAVESH/OHS Patient is obese with a BMI of 52 and has a reported history of BHAVESH and OHS which is consonant with his observed body habitus and baseline hypercarbia from previous ABGs. At home, he is on 2L O2 via NC at baseline and BiPAP at night. From the documentation, it appears that patient presented with shortness of breath that was not amenable to BiPAP treatment and he became lethargic requiring intubation. On exam, he appeared tachypneic and dyspneic with almost no air entry on auscultation. At that time, it was suspected to be COPD exacerbation; however, his pCO2 was only mildly elevated at 64 from his baseline 54 and unlikely to explain his lethargy. A more likely explanation would be that his airway collapsed, in the setting of OHS and BHAVESH, due to increased positive pressure and him not receiving enough EPAP support on the BiPAP. Dx: -07/26 ABG showed pH 7.41, pCO2 52, pO2 66, HCO3 33 (compared to pH 7.31, pCO2 64, pO2 71, and HCO3 33 upon ICU admission) -07/25 CXR consistent with chronic low lung volumes and left lower lobe atelectasis versus pneumonia with consolidation -07/25 sputum culture grew 1+ GNR (Enterobacter aerogenes) and Gram stain showed 1+ GPC -07/24 BCx's both negative after 24 hours -MRSA screen negative Rx: -Due to improvement of left base pneumonia and reassuring weaning parameters, patient was extubated to BiPAP today -Gave racemic epinephrine x 1 for snoring breath sounds present just s/p extubation -Due to continued respiratory distress on BiPAP, he was switched to CPAP which improved his respiratory status -Patient was then switched from CPAP to nasal cannula, which did result in some return of snoring noises -Will continue mobilizing the patient, have PT evaluate him, keep him awake, and continue to monitor his respiratory status with repeat ABGs should patient display signs of lethargy -Continue antibiotic treatment for pneumonia as outlined in the ID section RRx: -Patient seems to be tolerating this 2nd extubation attempt much better, likely due to adequate EPAP support from CPAP. It is likely, however, that the true solution to these episodes of respiratory distress requires ENT evaluation for laryngoscopy to evaluate the upper airway and possibly eventual surgical intervention to clear away whatever structural entity is causing the chronic upper airway obstruction. Gastrointestinal No active problem Renal No active problem Endocrine Metabolic syndrome. NIDDM type II [6.6%] [facility] Patient has metabolic syndrome, likely due to poor diet and antipsychotics. BMI 54. History of diabetes, hyperlipidemia (controlled with meds), morbid obesity. Rx: -Insulin sliding scale -Continue home atorvastatin and gemfibrozil Infectious Disease Community-acquired pneumonia History of COVID-19 infection Allegedly, on 07/15, patient tested positive for COVID-19 at his PCPs office. He was prescribed a course of steroids to which his symptoms were refractory. Subsequently, he presented to the ED and was hospitalized from 07/19 - 07/23 during which he was treated with remdesivir, ceftriaxone, azithromycin, and dexamethasone. He was discharged on a 5-day course of prednisone 40 mg p.o. Dx: -07/25 sputum culture grew 1+ GNR (Enterobacter aerogenes) and Gram stain showed 1+ GPC -On current admission, patient was COVID (-) -Chest x-ray showed bilateral reticular opacifications, increased hilar markings, left base consolidation with blunting of left costophrenic angle. Rx: -Continue ceftriaxone 1 g IV daily started on [07/25--], until 07/29 for a [id number] -Continue azithromycin 500 mg IV daily started on [07/25--], until 07/29 for a [id number] RRx: -Patient's left base pneumonia looked improved on chest imaging today s/p percussive therapy Integumentary No active problems ICU Health Maintenance Disposition: Patient has been successfully extubated and may be downgraded by tomorrow if he remains stable. Diet: Tube feed w/ water flushes @ 30 mL/hr DVT ppx: Enoxaparin 40 mg SC twice daily GI ppx: Protonix 40 mg qD Mechanical Ventilation: None Sedation: None Harden: Condom (started 07/25/25 - Code status: FULL CODE Plan of care discussed with Attending Dr. Nico Hernandez, DO Internal Medicine, PGY-1
[2025-07-28] MEDS: Magnesium Sulfate 2 GM Ivpb 2 GM/50 ML BAG IV (09:45)
[2025-07-28] MEDS: DEXMEDETOMIDINE 400 MCG IVPB 400 MCG/100 ML BAG 46.83 MCG IV (09:45)
[2025-07-28 10:19] LABS: Base Excess 2 (-3-3); HCO3 27 mEq/L (20-26); Inspired Oxygen, FIO2 40 %; O2 Saturation 94 % (91-98); PCO2 42 mmHg (32.0-48.0); PO2 67 mmHg (83-108); pH, Arterial 7.41 (7.35-7.45)
[2025-07-28 10:21] LABS: Allen Test Performed/OK; Puncture Site Right Radial
[2025-07-28 14:08] LABS: Base Excess 2 (-3-3); HCO3 27 mEq/L (20-26); Inspired Oxygen, FIO2 40 %; O2 Saturation 97 % (91-98); PCO2 44 mmHg (32.0-48.0); PO2 82 mmHg (83-108); pH, Arterial 7.40 (7.35-7.45)
[2025-07-28 14:29] LABS: Allen Test Performed/OK; Puncture Site Right Radial
[2025-07-28] MEDS: ATORVASTATIN CALCIUM 20 MG TABLET PO (20:17)
[2025-07-29] VITALS (28 sets, daily range): BP systolic 117–168; BP diastolic 69–124; PULSE 77–96; RESP 4–29; TEMP 35.9–37.4; O2SAT 89–99; BMI 49.5; BMI 49.3
[2025-07-29] MEDS: ACETYLCYSTEINE SOL 20% 4 ML NEBU 3 ML INH ×2 (02:35→06:40)
[2025-07-29] MEDS: ALBUTEROL/IPRATROPIUM (Duoneb) RT SOL 3 ML NEBU INH ×6 (02:36→22:24)
[2025-07-29 07:36] LABS: Basophils # (Auto) 0.1 Thou/mm3 (0.0-0.2); Basophils % (Auto) 0 % (0-2.5); Eosinophils # (Auto) 0.9 Thou/mm3 (0.0-0.5); Eosinophils % (Auto) 7 % (0-10); Hematocrit 43.3 % (41.0-53.0); Hemoglobin 14.1 g/dL (13.5-16.0); Immature Granulocytes Auto 0.09 Thou/mm3 (0.00-0.00); Lymphocytes # (Auto) 1.4 Thou/mm3 (1.0-4.8); Lymphocytes % (Auto) 11 % (10-50); Mean Corpuscular HGB Conc 32.6 g/dl (31.0-37.0); Mean Corpuscular Hemoglobin 28.1 pg (25.0-35.0); Mean Corpuscular Volume 86 fL (80-100); Monocytes # (Auto) 0.6 Thou/mm3 (0.0-0.8); Monocytes % (Auto) 5 % (0-12); Neutrophils # (Auto) 9.4 Thou/mm3 (1.8-7.7); Neutrophils % (Auto) 75 % (37-80); Nucleated Red Blood Cell # 0.00 Thou/mm3 (0.00-0.00); Nucleated Red Blood Cell % 0 /100 WBC (0); Platelet Count 215 Thou/mm3 (140-440); RDW Standard Deviation 50.4 fL (35.1-43.9); Red Blood Count 5.02 Miln/mm3 (4.50-5.90); White Blood Count 12.5 Thou/mm3 (3.8-10.6)
[2025-07-29 07:56] LABS: Anion Gap 9 (7-16); BUN/Creatinine Ratio 18 Ratio (12-20); Blood Urea Nitrogen 14 mg/dL (9-23); Calcium 9.0 mg/dL (8.3-10.6); Carbon Dioxide 27.4 mMol/L (20.0-31.0); Chloride 101 mMol/L (98-107); Creatinine (Component) 0.8 mg/dL (0.6-1.3); Estimated Creatinine Clearance 166.9 mL/min (>60); Glucose 79 mg/dL (74-106); Magnesium 1.8 mg/dL (1.6-2.6); Osmolality,Calculated 273 (275-295); Phosphorous 3.3 mg/dL (2.4-5.1); Potassium 3.9 mMol/L (3.4-5.1); Sodium 137 mMol/L (136-145); eGFR > 60 See Note
[2025-07-29] MEDS: cefTRIAXone/D5w 1gm IV premix 1 GM/50 ML BAG IV (08:26)
[2025-07-29] MEDS: ENOXAPARIN SOD INJ 60 MG/0.6 ML SYRINGE 40 MG SC ×2 (08:30→20:30)
--- NOTE | 2025-07-29 09:38 | ESPR_ITS ---
Documentation for date of: 07/29/25 Subjective Subjective Interval history: This is a 44-year-old gentleman admitted to the ICU with acute hypercarbic respiratory failure. He is currently intubated. He was extubated on the how/ever failed extubation after about 30 minutes and was quickly reintubated. Today he is awake alert and able to follow commands. He remains on PSV however rapidly desats when laying flat or moved. Chest x-ray continues to show left lower lobe consolidation. He is afebrile. 07/28- no acute overnight events, awake alert and follows commands, good UOP and is net neg 2lts over the last 24hrs and net neg ~4lts since hospital arrival 07/29- no acute overnight events, extubated to cpap yesterday and did well overnight, good UOP, afebrile Critical Care Note Critical care time (min.): 0 Exam Vital Signs Temp Pulse Resp BP Pulse Ox O2 Del Method O2 Flow Rate 99.3 F 96 20 154/101 H 94 L Nasal Cannula 4 07/29/25 08:02 07/29/25 08:27 07/29/25 08:02 07/29/25 08:27 07/29/25 08:02 07/29/25 08:02 07/29/25 08:02 FiO2 40 07/29/25 08:00 Narrative Exam Gen- NAD, AAOx3, obese HEENT- NC/AT, mucosa hydrated, sclera anicteric, EOMI Chest- LCTAB, diminished, HRRR, no increase in WOB Abd- obese, s/nt/bs+ Ext- min edema, pulses palp, no clubbing , no mottling, moves all 4 extremities Physical Exam Completion Physical Exam Complete?: Yes 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 Labs 07/29/25 06:53 07/29/25 06:53 Labs: Laboratory Results - last 24 hr 07/28/25 07/28/25 07/29/25 10:08 14:00 06:53 WBC 12.5 H RBC 5.02 Hgb 14.1 Hct 43.3 MCV 86 MCH 28.1 MCHC 32.6 RDW Std Deviation 50.4 H Plt Count 215 Neut % (Auto) 75 Lymph % (Auto) 11 [place] % (Auto) 5 Eos % (Auto) 7 Baso % (Auto) 0 Neut # (Auto) 9.4 H Lymph # (Auto) 1.4 [place] # (Auto) 0.6 Eos # (Auto) 0.9 H Baso # (Auto) 0.1 Immature Gran # (Auto) 0.09 H Absolute Nucleated RBC 0.00 Immature Gran % 1 H Nucleated RBC % 0 Puncture Site Right Radial Right Radial ABG pH 7.41 7.40 ABG pCO2 42 44 ABG pO2 67 L 82 L ABG HCO3 27 H 27 H ABG O2 Saturation 94 97 ABG Base Excess 2 2 FiO2 40 40 Sodium 137 Potassium 3.9 Chloride 101 Carbon Dioxide 27.4 Anion Gap 9 BUN 14 Creatinine 0.8 Estim Creat Clear Calc 166.9 eGFR > 60 BUN/Creatinine Ratio 18 Glucose 79 Calculated Osmolality 273 L Calcium 9.0 Phosphorus 3.3 Magnesium 1.8 Assessment & Plan Additional Plan Additional Plan: In brief this is a 44-year-old gentleman admitted to the ICU with acute hypercarbic respiratory failure 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 Completed treatment at that time and returned home. Renal Stable GI Nutrition- start PO if passes bedside swallow Endo Stable Heme Anemia-mild, no active bleeding noted, monitor DVT prophylaxis-Lovenox 40 twice daily ID stable Case discussed with ICU team stable for downgrade would recommend ENT eval for laryngoscopy to eval upper airway Labs, imaging and records reviewed Approximately 35 min required for evaluation, exam, review, intervention, discussion and formulation of plan of care Provider Notation Provider Notation: Although this document has been carefully reviewed, there may still be some phonetic and other typographical errors. These errors are purely grammatical due to imperfections in the software program and should not be construed in any way to compromise the substance of the patient's medical care during this visit. Thank you for the opportunity and privilege in assisting you with this patient's care and management.
--- NOTE | 2025-07-29 10:17 | ESPR_ITS ---
<Statement entered by Cody Rodriguez MD - 07/30/25 07:43> I saw and examined patient personally and supervised PGY 1 resident, Dr. Hernandez with formulating a management plan. I agree with the documentation with the exceptions as listed below. 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 Problem list: Acute on chronic hypoxic and hypercarbic respiratory failure secondary to BHAVESH and COPD exacerbation?resolved BHAVESH/OHS COPD Obesity Patient was extubated and on Tuesday and kept in the ICU to room abundance of caution for monitoring overnight. He tolerated CPAP while sleeping and had no further obstructive/apneic episodes. At this point in time patient clinically stable for downgrade to the floor. Recommend to continue DuoNebs and to refer for ENT consultation as outpatient for upper airway obstruction. Plan of care discussed with Attending Dr. Nico Rodriguez MD PGY 2 Disclaimer: This note was dictated by speech recognition. Minor errors in line up examiner may be present due to voice recognition software. Documentation for date of: 07/29/25 Subjective Subjective Interval history: The patient is a 44-year-old male with a medical history of morbid obesity, schizophrenia, hypertension, type 2 diabetes mellitus, obstructive sleep apnea , obesity hypoventilation syndrome (on 2 L oxygen at baseline), COPD, and a recent history of COVID-pneumonia, for which he was discharged from the hospital. He presents to the emergency department with worsening shortness of breath. History was primarily obtained from the ED sign-out and chart review. Upon presentation, the patient was hypoxic. After receiving a breathing treatment, his oxygen saturation significantly improved, but he remained tachypneic and appeared to be in acute distress. The patient was placed on BiPAP but did not tolerate it well and progressively worsened, including a decline in neurological status. He became lethargic, though arousable. Physical exam revealed distant breath sounds bilaterally, though auscultation was challenging due to his body habitus. According to the ED sign-out, the patient denied chest pain, headache, vision changes, or any other symptoms apart from dyspnea. Initial labs (CBC and CMP) were unremarkable. Chest X-ray revealed pneumonia, and a COVID-19 bedside test was positive. A VBG showed a pH of 7.36, pCO2 of 58, and an O2 saturation of 89%. Despite being placed on BiPAP, the patient?s mental status continued to deteriorate, and he became more tachypneic, using accessory muscles to breathe. An ABG revealed worsening respiratory status: pH 7.31, pCO2 64, pO2 71, and bicarbonate 32. Given the worsening condition, the decision was made to intubate for airway protection. The patient was subsequently admitted to the ICU for [id number] hypoxic hypercapnic respiratory failure, secondary to a COPD exacerbation in the setting of COVID-pneumonia. 07/25/2025: Patient had no events overnight. 68.3, output of 450 cc, balance - 389 cc. Patient on low-dose fentanyl and propofol at RASS of 0. He follows commands appropriately and currently watching Television. End-tidal CO2 54 while on AC VC. Chest x-ray showed bilateral reticular opacities, poor respiratory effort with reduced lung volumes, left base consolidation with blunting of costophrenic angle. WBC 13.6, K5, BUN 15, CR 0.8, magnesium 2, AST 41, ALT 82, HbA1c 6.6%. Will attempt SAT and SBT. Once patient tolerates SBT will switch to Pressure support and repeat a blood gas. Resumed his home medication via OG. 07/26/2025: No overnight events. Patient was examined at bedside; he remains intubated on ACMV (Volume 250, RR 20, and PEEP 8) while being sedated with propofol and fentanyl for a goal RASS of 0. He awakens to voice but quickly returns to sleep afterwards. ABG lab values this morning appear relatively improved with pH 7.41, pCO2 52, pO2 66, and HCO3 33 and patient's transaminitis is also improving. The current plan (besides daily SATs for timely sedation weaning) is to keep patient on spontaneous mode (pressure support) and to monitor his respiratory status on that mode due to the likelihood that his failure to be extubated yesterday was primarily 2/2 airway obstruction 2/2 obesity hypoventilation syndrome in the setting of increased metabolic demand from his ongoing pneumonia. His progress for respiratory improvement will likely be more accurately evaluated on pressure support due to this being the limiting reagent of adequate oxygenation and ventilation; as such, we will monitor his breathing as we slowly wean pressure support and PEEP to guide our timeline and expectations concerning punctual extubation. Once patient seems able to sustain comfortable breathing without any pressure support or PEEP (passes SBT) and demonstrates a good Negative Inspiratory Force (below -25 cm H2O) on testing, another extubation attempt will be made. If, after a few hours s/p extubation, patient continues to demonstrate adequate respiratory functions and shows no signs of post-extubation apneic episodes, he will be deemed stable enough for downgrade to floors. He will also be restarted on tube feeds today with water flushes running @ 30 mL/hr, and continue IV ceftriaxone and IV azithromycin to treat his pneumonia (07/25 sputum culture grew 1+ GNR and Gram stain showed 1+ GPC, low concern/risk for Pseudomonas aeruginosa). 07/27/25: No overnight events. Patient was examined at bedside; he remains intubated on spontaneous pressure support mode and appears able to breathe normally. Due to the need for a respiratory drive to trigger breaths on spontaneous pressure support mode, the decision was made to switch patient's sedation regimen from propofol and fentanyl to Precedex with the goal of maintaining RASS of 0. Sputum culture grew Enterobacter aerogenes which was susceptible to ceftriaxone (patient's current antibiotic regimen). Currently plan to have patient sit up and receive both Mucomyst and chest PT to the area of lobar consolidation (lower left lobe) to improve its condition before another extubation attempt to BiPAP is made tomorrow. 07/28/25: No overnight events. Today, patient's CXR showed improvement of the left base pneumonia and this, along with patient's promising weaning parameters, led to the decision to extubate patient to BiPAP this morning. After being extubated, however, patient was noted to making snoring noises that did not seem to be stridor; as a result, he was given racemic epinephrine for therapeutic bronchodilation. Due to suspicion that patient's primary respiratory issue was upper airway obstruction 2/2 compression by excess adipose tissue or other structural anatomy, patient switched from BiPAP to CPAP instead which seemed to improve his respiratory status as well as resolve the snoring sounds suggesting upper airway obstruction. Patient's repeat ABG in the afternoon s/p extubation were reassuring; his blood pH was 7.40, pCO2 was 44, pO2 was 82, and HCO3 was 27. He was then taken off of CPAP and put on nasal cannula which he also seemed to tolerate albeit with some return of the snoring noises that he exhibited just s/p extubation. Current plan moving forward is to continue mobilizing the patient, have PT evaluate him, keep him awake, and continue to monitor his respiratory status with repeat ABGs should patient display signs of lethargy. If his respiratory status continues to stay within acceptable parameters overnight, he may be cleared for downgrade to floors tomorrow. 07/29/25: No overnight events. Patient was examined at bedside; he appears energetic and without respiratory distress on 4 L nasal cannula. Patient was extubated to CPAP yesterday and did well overnight. Last ABG on 07/28 showed pH 7.40, pCO2 44, pO2 82, and HCO3 22. Patient has remained afebrile and has good urine output. Due to greatly improved respiratory status and achievement of clinical stability, patient no longer meets criteria for continued ICU management and will be downgraded to floors today. Exam Vital Signs Temp Pulse Resp BP Pulse Ox O2 Del Method O2 Flow Rate 99.3 F 96 20 154/101 H 94 L Nasal Cannula 4 07/29/25 08:02 07/29/25 08:27 07/29/25 08:02 07/29/25 08:27 07/29/25 08:02 07/29/25 08:02 07/29/25 08:02 FiO2 40 07/29/25 08:00 Narrative Exam General: A&O x 3 morbidly obese male in NAD. Skin: Warm, dry, intact, no obvious rash. Head: Normocephalic, atraumatic. Eyes: PERRLA. EOMI. Anicteric. Ears: Hearing grossly intact. Nose: No nasal discharge. Mouth/Throat: Oral mucosa moist. No obvious lesions in oropharynx. Cardiovascular: Difficult to auscultate clearly due to body habitus and ventilation but seemingly regular rate and rhythm, no murmur, no JVD or carotid bruits. +S1/S2. Respiratory: Extubated and on nasal cannula. Lung bradley clear to auscultation bilaterally but diminished/muffled. No wheezing, increased work of breathing, or accessory muscle use observed. Gastrointestinal: Soft, nontender, obese, no palpable masses. No guarding or rebound tenderness. Peristaltic bowel sounds normoactive. Extremities: Dark, hyperpigmented bone spur on dorso-medial surface of R foot. Bilateral dryness and flakiness of feet, especially towards the plantar surfaces. Untrimmed toenails. Significant darkening and thickening of L hallux nail. Long, curved, claw-like nail on L pinky toe. Long, untrimmed R hallux nail. Medial deviation of nails observed on L third, fourth, and pinky toe. Elongated, hooded appearance of nails on L fourth and pinky toe. Scabbed abrasion near base of R third toe. No significant deformities. Some edema of lower extremities, no cyanosis, no clubbing, and no mottling. Radial pulse palpable bilaterally. Neuro: No focal deficits observed. No overt cerebellar signs/incoordination. Psychiatric: Cooperative, appropriate affect. Objective Labs 07/29/25 06:53 07/29/25 06:53 Labs: Laboratory Results - last 24 hr 07/28/25 07/28/25 07/29/25 10:08 14:00 06:53 WBC 12.5 H RBC 5.02 Hgb 14.1 Hct 43.3 MCV 86 MCH 28.1 MCHC 32.6 RDW Std Deviation 50.4 H Plt Count 215 Neut % (Auto) 75 Lymph % (Auto) 11 [place] % (Auto) 5 Eos % (Auto) 7 Baso % (Auto) 0 Neut # (Auto) 9.4 H Lymph # (Auto) 1.4 [place] # (Auto) 0.6 Eos # (Auto) 0.9 H Baso # (Auto) 0.1 Immature Gran # (Auto) 0.09 H Absolute Nucleated RBC 0.00 Immature Gran % 1 H Nucleated RBC % 0 Puncture Site Right Radial Right Radial ABG pH 7.41 7.40 ABG pCO2 42 44 ABG pO2 67 L 82 L ABG HCO3 27 H 27 H ABG O2 Saturation 94 97 ABG Base Excess 2 2 FiO2 40 40 Sodium 137 Potassium 3.9 Chloride 101 Carbon Dioxide 27.4 Anion Gap 9 BUN 14 Creatinine 0.8 Estim Creat Clear Calc 166.9 eGFR > 60 BUN/Creatinine Ratio 18 Glucose 79 Calculated Osmolality 273 L Calcium 9.0 Phosphorus 3.3 Magnesium 1.8 ABG Interpretation ABG results: 07/24/25 07/25/25 07/25/25 23:47 02:20 04:08 ABG pH 7.31 L 7.29 L ABG pCO2 64 H 67 H ABG pO2 71 L 52 L* ABG HCO3 32 H 32 H ABG O2 Saturation 93 84 L ABG Base Excess 3 3 VBG pH 7.35 VBG pCO2 58 H D VBG pO2 58 VBG Base Excess 4 H 07/25/25 07/25/25 07/25/25 05:08 07:18 09:35 ABG pH 7.29 L 7.31 L 7.31 L ABG pCO2 67 H 62 H 66 H ABG pO2 71 L 83 52 L* D ABG HCO3 32 H 31 H 33 H ABG O2 Saturation 93 96 85 L ABG Base Excess 3 3 4 H VBG pH VBG pCO2 VBG pO2 VBG Base Excess 07/25/25 07/26/25 07/27/25 13:50 04:37 05:00 ABG pH 7.35 7.41 7.40 ABG pCO2 58 H 52 H 51 H ABG pO2 101 D 66 L D 64 L ABG HCO3 32 H 33 H 32 H ABG O2 Saturation 98 94 93 ABG Base Excess 5 H 7 H 5 H VBG pH VBG pCO2 VBG pO2 VBG Base Excess 07/28/25 07/28/25 07/28/25 05:14 10:08 14:00 ABG pH 7.44 7.41 7.40 ABG pCO2 43 42 44 ABG pO2 61 L 67 L 82 L ABG HCO3 29 H 27 H 27 H ABG O2 Saturation 93 94 97 ABG Base Excess 4 H 2 2 VBG pH VBG pCO2 VBG pO2 VBG Base Excess Quality Measures Quality Measures none Assessment & Plan Assessment Current Active Medications: Generic Name Dose Route Start Last Admin Trade Name Luisa PRN Reason Stop Dose Admin Acetaminophen 1,000 mg 07/26/25 08:33 Acetaminophen 500 Mg Tablet PO 08/24/25 02:46 Q6H PRN Fever >100 or pain Albuterol/Ipratropium 3 ml 07/25/25 03:00 07/29/25 10:13 Albuterol/Ipratropium (Duoneb) Rt Katarina 3 Ml Nebu INH 08/24/25 02:59 3 ml Q4HRRT JEANNE Administration Atorvastatin Calcium 20 mg 07/25/25 21:00 07/28/25 20:17 Atorvastatin Calcium 20 Mg Tablet PO 08/24/25 20:59 20 mg HS JEANNE Administration Carvedilol 6.25 mg 07/25/25 17:30 07/29/25 08:27 Carvedilol 3.125 Mg Tablet GT 08/24/25 17:29 6.25 mg BIDWM JEANNE Administration Dextrose 25 ml 07/25/25 03:53 Dextrose 50%-Water Inj 50 Ml Syringe IV 08/24/25 03:52 Q15MIN PRN BG 50-70 responsive npo pt Dextrose 50 ml 07/25/25 03:53 Dextrose 50%-Water Inj 50 Ml Syringe IV 08/24/25 03:52 Q15MIN PRN BG <50 OR BG <70 & pt unresponsive Enoxaparin Sodium 40 mg 07/25/25 09:00 07/29/25 08:30 Enoxaparin Sod Inj 60 Mg/0.6 Ml Syringe SC 08/08/25 08:59 40 mg BID JEANNE Administration Furosemide 20 mg 07/25/25 09:00 07/29/25 08:26 Furosemide 20 Mg Tablet GT 08/24/25 08:59 20 mg QAM JEANNE Administration Gemfibrozil 600 mg 07/25/25 09:00 07/29/25 08:28 Gemfibrozil 600 Mg Tablet PO 08/24/25 08:59 600 mg BID JEANNE Administration Glucagon 1 mg 07/29/25 09:54 Glucagon Inj 1 Mg Vial IM Q15MIN PRN BG <70, and no IV access Haloperidol 10 mg 07/25/25 09:00 07/29/25 08:28 Haloperidol 5 Mg Tablet PO 08/24/25 08:59 10 mg BID JEANNE Administration Ceftriaxone Sodium/Dextrose 1 gm in 50 mls @ 100 mls/hr 07/25/25 05:13 07/29/25 08:26 Rocephin/D5w 1gm Iv Premix IV 08/01/25 05:12 100 mls/hr QDAY JEANNE Administration Insulin Human Lispro 0 unit 07/29/25 11:30 Insulin Lispro (Admelog) 1 Unit/0.01 Ml Unit SC 08/28/25 11:29 ACHS JEANNE Protocol Ondansetron HCl 4 mg 07/25/25 02:47 Ondansetron Inj 2 Mg/Ml Inj 2 Ml IVP 08/24/25 02:46 Q6H PRN NAUSEA OR VOMITING Protocol Pantoprazole Sodium 40 mg 07/25/25 09:00 07/29/25 08:26 Pantoprazole Inj 40 Mg Vial IVP 08/24/25 08:59 40 mg QDAY JEANNE Administration Sodium Chloride 3 ml 07/28/25 08:23 Sodium Chloride Rt Katarina 0.9% 3 Ml Nebu INH 08/27/25 08:22 PRN PRN SOLN Plan Patient is a 44 years old male with PMH of morbid obesity, schizophrenia, hypertension, T2DM, BHAVESH on CPAP, and obesity hypoventilation syndrome on 2 L baseline O2 who was initially was admitted to ICU due to acute on chronic hypoxic hypercapnic respiratory failure due to COPD exacerbation in the setting of COVID-pneumonia requiring intubation for airway protection. No overnight events. Patient was examined at bedside; he appears energetic and without respiratory distress on 4 L nasal cannula. Patient was extubated to CPAP yesterday and did well overnight. Last ABG on 07/28 showed pH 7.40, pCO2 44, pO2 82, and HCO3 22. Patient has remained afebrile and has good urine output. 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 twice daily RRx: -No overt signs of breakthrough psychosis CVS #History of primary hypertension Dx: -ECHO 03/2025: The transthoracic study is normal by two-dimensional, color flow imaging and Doppler interrogation. Normal left ventricular size and function. Normal right ventricle function. Approximate ejection fraction is 60%. Trace mitral and trace tricuspid regurgitation No wall motion abnormalities Left atrial diameter normal, no diastolic dysfunction noted per se in echo. -At home on Coreg and Lasix Rx: ?Continue home medication Coreg 6.25 mg p.o. twice daily ?Continue home medication Lasix 20 mg p.o. daily RRx: -Blood pressures today have been well-controlled Respiratory #Acute hypercarbic respiratory failure, s/p extubation (07/28) #Community-acquired pneumonia #History of BHAVESH/OHS Patient is obese with a BMI of 52 and has a reported history of BHAVESH and OHS which is consonant with his observed body habitus and baseline hypercarbia from previous ABGs. At home, he is on 2L O2 via NC at baseline and BiPAP at night. From the documentation, it appears that patient presented with shortness of breath that was not amenable to BiPAP treatment and he became lethargic requiring intubation. On exam, he appeared tachypneic and dyspneic with almost no air entry on auscultation. At that time, it was suspected to be COPD exacerbation; however, his pCO2 was only mildly elevated at 64 from his baseline 54 and unlikely to explain his lethargy. A more likely explanation would be that his airway collapsed, in the setting of OHS and BHAVESH, due to increased positive pressure and him not receiving enough EPAP support on the BiPAP. Dx: -07/26 ABG showed pH 7.41, pCO2 52, pO2 66, HCO3 33 (compared to pH 7.31, pCO2 64, pO2 71, and HCO3 33 upon ICU admission) -07/25 CXR consistent with chronic low lung volumes and left lower lobe atelectasis versus pneumonia with consolidation -07/25 sputum culture grew 1+ GNR (Enterobacter aerogenes) and Gram stain showed 1+ GPC -07/24 BCx's both negative after 24 hours -MRSA screen negative Rx: -Has been transitioned to 4 L nasal cannula and seems to be tolerating it well -Continue antibiotic treatment for pneumonia as outlined in the ID section RRx: -Patient seems to be tolerating this 2nd extubation attempt much better. He will need CPAP while he sleeps for his severe BHAVESH. It is likely, however, that the true solution to these episodes of respiratory distress requires ENT evaluation for laryngoscopy to evaluate the upper airway and possibly eventual surgical intervention to clear away whatever structural entity is causing the chronic upper airway obstruction. Gastrointestinal No active problem Renal No active problem Endocrine Metabolic syndrome. NIDDM type II [6.6%] [facility] Patient has metabolic syndrome, likely due to poor diet and antipsychotics. BMI 54. History of diabetes, hyperlipidemia (controlled with meds), morbid obesity. Rx: -Insulin sliding scale -Continue home atorvastatin and gemfibrozil Infectious Disease Community-acquired pneumonia History of COVID-19 infection Allegedly, on 07/15, patient tested positive for COVID-19 at his PCPs office. He was prescribed a course of steroids to which his symptoms were refractory. Subsequently, he presented to the ED and was hospitalized from 07/19 - 07/23 during which he was treated with remdesivir, ceftriaxone, azithromycin, and dexamethasone. He was discharged on a 5-day course of prednisone 40 mg p.o. Dx: -07/25 sputum culture grew 1+ GNR (Enterobacter aerogenes) and Gram stain showed 1+ GPC -On current admission, patient was COVID (-) -Chest x-ray showed bilateral reticular opacifications, increased hilar markings, left base consolidation with blunting of left costophrenic angle. Rx: -Continue ceftriaxone 1 g IV daily started on [07/25--], until 07/29 for a [id number] -Continue azithromycin 500 mg IV daily started on [07/25--], until 07/29 for a [id number] RRx: -Patient's left base pneumonia looked improved on chest imaging today s/p percussive therapy Integumentary No active problems ICU Health Maintenance Disposition: Patient has been successfully extubated and may be downgraded today. Diet: Carbohydrate Consistent Low DVT ppx: Enoxaparin 40 mg SC twice daily GI ppx: Protonix 40 mg qD Mechanical Ventilation: None Sedation: None Harden: Condom (started 07/25/25 - Code status: FULL CODE Plan of care discussed with Attending Dr. Nico Hernandez, DO Internal Medicine, PGY-1
--- NOTE | 2025-07-29 11:55 | PC.SS ---
Update: Patient to be downgraded from ICU today.
--- NOTE | 2025-07-29 15:31 | ESPR_ITS ---
<Statement entered by Tania Welch MD - 08/01/25 17:41> I reviewed above note and agree with findings and plans. I have also personally examined the patient with medicine team and went over assessment and plan with medical team including regulatory affairs intern and resident physician. <Statement entered by Eli Ashton MD - 07/29/25 20:11> Note reviewed, I agree with most of its contents and agree with the patient's care as documented by Dr. Santos. The patient's management plan was discussed with my attending physician Dr. Welch. Eli Ashton, PGY-2 Documentation for date of: 07/29/25 Subjective Subjective Interval history: Mr. Reyes is a 44-year-old male with a medical history of morbid obesity, schizophrenia, hypertension, type 2 diabetes mellitus, obstructive sleep apnea , obesity hypoventilation syndrome (on 2 L oxygen at baseline), COPD, and a recent history of COVID-pneumonia, for which he was discharged from the hospital. He presents to the emergency department with worsening shortness of breath. pt was intubated on admission to the ICU, and then successfully extubated on 07/28, continued on bipap prn and duonebs, steroids, and then transitioned to NC and bipap at night. 07/29/2025: Pt was downgraded from ICU today to floors, satting well on 4L NC and bipap at night. nursing noted that pt has not had BM in several days. plan to give lactulose 40 mg tid elva. Completed abx ceftriaxone and azithro abx 5 day course. Exam Vital Signs Temp Pulse Resp BP Pulse Ox O2 Del Method O2 Flow Rate 96.6 F L 95 21 H 140/78 H 96 Nasal Cannula 4 07/29/25 12:02 07/29/25 12:02 07/29/25 12:02 07/29/25 11:26 07/29/25 12:02 07/29/25 12:02 07/29/25 12:02 FiO2 4 07/29/25 10:13 Narrative Exam GENERAL: no acute distress, comfortably laying in bed HEENT: Head AT/ NC. Mucous membranes moist. PERRL. CARDIOVASCULAR: RRR. Normal S1/S2, No m/r/g. Trace edema of bilateral LEs. RESPIRATORY: CTAB. No wheezing, rhonchi, crackles. (exam limited by habitus) GASTROINTESTINAL: Abdomen soft, non tender no palpable masses. Bowel sounds present MUSCULOSKELETAL:? No cyanosis or edema, no visible joint swelling. feet are restlessly moving on exam NEUROLOGICAL: CN II-XII grossly intact. No focal deficits. Sensation intact, symmetric. PSYCHIATRIC: Awake and alert, not agitated, normal mood and affect. SKIN: No obvious rashes, no jaundice, normal turgor. Objective Labs 07/29/25 06:53 07/29/25 06:53 Labs: Laboratory Results - last 24 hr 07/29/25 06:53 WBC 12.5 H RBC 5.02 Hgb 14.1 Hct 43.3 MCV 86 MCH 28.1 MCHC 32.6 RDW Std Deviation 50.4 H Plt Count 215 Neut % (Auto) 75 Lymph % (Auto) 11 [place] % (Auto) 5 Eos % (Auto) 7 Baso % (Auto) 0 Neut # (Auto) 9.4 H Lymph # (Auto) 1.4 [place] # (Auto) 0.6 Eos # (Auto) 0.9 H Baso # (Auto) 0.1 Immature Gran # (Auto) 0.09 H Absolute Nucleated RBC 0.00 Immature Gran % 1 H Nucleated RBC % 0 Sodium 137 Potassium 3.9 Chloride 101 Carbon Dioxide 27.4 Anion Gap 9 BUN 14 Creatinine 0.8 Estim Creat Clear Calc 166.9 eGFR > 60 BUN/Creatinine Ratio 18 Glucose 79 Calculated Osmolality 273 L Calcium 9.0 Phosphorus 3.3 Magnesium 1.8 ABG Interpretation ABG results: 07/24/25 07/25/25 07/25/25 23:47 02:20 04:08 ABG pH 7.31 L 7.29 L ABG pCO2 64 H 67 H ABG pO2 71 L 52 L* ABG HCO3 32 H 32 H ABG O2 Saturation 93 84 L ABG Base Excess 3 3 VBG pH 7.35 VBG pCO2 58 H D VBG pO2 58 VBG Base Excess 4 H 07/25/25 07/25/25 07/25/25 05:08 07:18 09:35 ABG pH 7.29 L 7.31 L 7.31 L ABG pCO2 67 H 62 H 66 H ABG pO2 71 L 83 52 L* D ABG HCO3 32 H 31 H 33 H ABG O2 Saturation 93 96 85 L ABG Base Excess 3 3 4 H VBG pH VBG pCO2 VBG pO2 VBG Base Excess 07/25/25 07/26/25 07/27/25 13:50 04:37 05:00 ABG pH 7.35 7.41 7.40 ABG pCO2 58 H 52 H 51 H ABG pO2 101 D 66 L D 64 L ABG HCO3 32 H 33 H 32 H ABG O2 Saturation 98 94 93 ABG Base Excess 5 H 7 H 5 H VBG pH VBG pCO2 VBG pO2 VBG Base Excess 07/28/25 07/28/25 07/28/25 05:14 10:08 14:00 ABG pH 7.44 7.41 7.40 ABG pCO2 43 42 44 ABG pO2 61 L 67 L 82 L ABG HCO3 29 H 27 H 27 H ABG O2 Saturation 93 94 97 ABG Base Excess 4 H 2 2 VBG pH VBG pCO2 VBG pO2 VBG Base Excess Quality Measures Quality Measures none Assessment & Plan Assessment Current Active Medications: Generic Name Dose Route Start Last Admin Trade Name Freq PRN Reason Stop Dose Admin Acetaminophen 1,000 mg 07/26/25 08:33 Acetaminophen 500 Mg Tablet PO 08/24/25 02:46 Q6H PRN Fever >100 or pain Albuterol/Ipratropium 3 ml 07/25/25 03:00 07/29/25 14:35 Albuterol/Ipratropium (Duoneb) Rt Katarina 3 Ml Nebu INH 08/24/25 02:59 3 ml Q4HRRT ELVA Administration Atorvastatin Calcium 20 mg 07/25/25 21:00 07/28/25 20:17 Atorvastatin Calcium 20 Mg Tablet PO 08/24/25 20:59 20 mg HS ELVA Administration Carvedilol 6.25 mg 07/25/25 17:30 07/29/25 08:27 Carvedilol 3.125 Mg Tablet GT 08/24/25 17:29 6.25 mg BIDWM ELVA Administration Dextrose 25 ml 07/25/25 03:53 Dextrose 50%-Water Inj 50 Ml Syringe IV 08/24/25 03:52 Q15MIN PRN BG 50-70 responsive npo pt Dextrose 50 ml 07/25/25 03:53 Dextrose 50%-Water Inj 50 Ml Syringe IV 08/24/25 03:52 Q15MIN PRN BG <50 OR BG <70 & pt unresponsive Enoxaparin Sodium 40 mg 07/25/25 09:00 07/29/25 08:30 Enoxaparin Sod Inj 60 Mg/0.6 Ml Syringe SC 08/08/25 08:59 40 mg BID ELVA Administration Furosemide 20 mg 07/25/25 09:00 07/29/25 08:26 Furosemide 20 Mg Tablet GT 08/24/25 08:59 20 mg QAM ELVA Administration Gemfibrozil 600 mg 07/25/25 09:00 07/29/25 08:28 Gemfibrozil 600 Mg Tablet PO 08/24/25 08:59 600 mg BID ELVA Administration Glucagon 1 mg 07/29/25 09:54 Glucagon Inj 1 Mg Vial IM Q15MIN PRN BG <70, and no IV access Haloperidol 10 mg 07/25/25 09:00 07/29/25 08:28 Haloperidol 5 Mg Tablet PO 08/24/25 08:59 10 mg BID ELVA Administration Ceftriaxone Sodium/Dextrose 1 gm in 50 mls @ 100 mls/hr 07/25/25 05:13 07/29/25 08:26 Rocephin/D5w 1gm Iv Premix IV 08/01/25 05:12 100 mls/hr QDAY ELVA Administration Insulin Human Lispro 0 unit 07/29/25 11:30 07/29/25 11:24 Insulin Lispro (Admelog) 1 Unit/0.01 Ml Unit SC 08/28/25 11:29 Not Given ACHS ELVA Protocol Ondansetron HCl 4 mg 07/25/25 02:47 Ondansetron Inj 2 Mg/Ml Inj 2 Ml IVP 08/24/25 02:46 Q6H PRN NAUSEA OR VOMITING Protocol Pantoprazole Sodium 40 mg 07/25/25 09:00 07/29/25 08:26 Pantoprazole Inj 40 Mg Vial IVP 08/24/25 08:59 40 mg QDAY ELVA Administration Sodium Chloride 3 ml 07/28/25 08:23 Sodium Chloride Rt Katarina 0.9% 3 Ml Nebu INH 08/27/25 08:22 PRN PRN SOLN Plan Patient is a 44 years old male with PMH of morbid obesity, schizophrenia, hypertension, T2DM, BHAVESH on CPAP, and obesity hypoventilation syndrome on 2 L baseline O2 who was initially was admitted to ICU due to acute on chronic hypoxic hypercapnic respiratory failure due to COPD exacerbation in the setting of COVID-pneumonia requiring intubation for airway protection. safely extubated, on 4 L nc satting well, afebrile with good uop, on steroids iv. #Acute hypercarbic respiratory failure, s/p extubation (07/28) #Community-acquired pneumonia #History of BHAVESH/OHS Patient is obese with a BMI of 52 and has a reported history of BHAVESH and OHS which is consonant with his observed body habitus and baseline hypercarbia from previous ABGs. At home, he is on 2L O2 via NC at baseline and BiPAP at night. From the documentation, it appears that patient presented with shortness of breath that was not amenable to BiPAP treatment and he became lethargic requiring intubation. On exam, he appeared tachypneic and dyspneic with almost no air entry on auscultation. At that time, it was suspected to be COPD exacerbation; however, his pCO2 was only mildly elevated at 64 from his baseline 54 and unlikely to explain his lethargy. A more likely explanation would be that his airway collapsed, in the setting of OHS and BHAVESH, due to increased positive pressure and him not receiving enough EPAP support on the BiPAP. Dx: -07/26 ABG showed pH 7.41, pCO2 52, pO2 66, HCO3 33 (compared to pH 7.31, pCO2 64, pO2 71, and HCO3 33 upon ICU admission) -07/25 CXR consistent with chronic low lung volumes and left lower lobe atelectasis versus pneumonia with consolidation -07/25 sputum culture grew 1+ GNR (Enterobacter aerogenes) and Gram stain showed 1+ GPC -07/24 BCx's both negative after 24 hours -MRSA screen negative Rx: -Has been transitioned to 4 L nasal cannula and seems to be tolerating it well -Completed Ceftriaxone and Azithromycin 5 day course (07/25-07/29) -Methylprednisolone 40 po qd RRx: -Patient seems to be tolerating this 2nd extubation attempt much better. He will need CPAP while he sleeps for his severe BHAVESH. It is likely, however, that the true solution to these episodes of respiratory distress requires ENT evaluation for laryngoscopy to evaluate the upper airway and possibly eventual surgical intervention to clear away whatever structural entity is causing the chronic upper airway obstruction. #Unspecified psychotic disorder #Schizophrenia Per chart review patient is on haloperidol at home Rx: -Continue home medication Haloperidol 10 mg p.o. twice daily RRx: -No overt signs of breakthrough psychosis #primary hypertension Dx: -ECHO 03/2025: The transthoracic study is normal by two-dimensional, color flow imaging and Doppler interrogation. Normal left ventricular size and function. Normal right ventricle function. Approximate ejection fraction is 60%. Trace mitral and trace tricuspid regurgitation No wall motion abnormalities Left atrial diameter normal, no diastolic dysfunction noted per se in echo. -At home on Coreg and Lasix Rx: ?Continue home medication Coreg 6.25 mg p.o. twice daily ?Continue home medication Lasix 20 mg p.o. daily RRx: -Blood pressures today have been well-controlled Metabolic syndrome. NIDDM type II [6.6%] KARENLD Patient has metabolic syndrome, likely due to poor diet and antipsychotics. BMI 54. History of diabetes, hyperlipidemia (controlled with meds), morbid obesity. Rx: -Insulin sliding scale -Continue home atorvastatin and gemfibrozil Dispo: tele pending discharge, on 4L NC Diet: carb consistent low Bowel Reg: lactulose tid VTE ppx: lovenox 40 sc GI ppx: protonix 40 bid Code status: FULL Plan discussed with Dr. Ashton, and Dr. Rebekah Santos MD PGY1
--- NOTE | 2025-07-29 16:26 | PC.PT ---
Patient is safe to transfer to a bedside commode with 1 staff supervision for safety. RN made aware.
[2025-07-29] MEDS: LACTULOSE SYRUP 20 GM/30 ML UDC 40 GM PO ×2 (18:07→23:11)
[2025-07-29] MEDS: ATORVASTATIN CALCIUM 20 MG TABLET PO (20:30)
[2025-07-30] VITALS (10 sets, daily range): BP systolic 116–140; BP diastolic 87–106; PULSE 71–94; RESP 12–24; TEMP 36.1–37; O2SAT 91–99; BMI 49.3
[2025-07-30] MEDS: ALBUTEROL/IPRATROPIUM (Duoneb) RT SOL 3 ML NEBU INH ×3 (02:24→10:33)
[2025-07-30 05:36] LABS: Basophils # (Auto) 0.0 Thou/mm3 (0.0-0.2); Basophils % (Auto) 0 % (0-2.5); Eosinophils # (Auto) 0.1 Thou/mm3 (0.0-0.5); Eosinophils % (Auto) 1 % (0-10); Hematocrit 45.9 % (41.0-53.0); Hemoglobin 15.5 g/dL (13.5-16.0); Immature Granulocytes Auto 0.09 Thou/mm3 (0.00-0.00); Lymphocytes # (Auto) 0.9 Thou/mm3 (1.0-4.8); Lymphocytes % (Auto) 9 % (10-50); Mean Corpuscular HGB Conc 33.8 g/dl (31.0-37.0); Mean Corpuscular Hemoglobin 28.9 pg (25.0-35.0); Mean Corpuscular Volume 86 fL (80-100); Monocytes # (Auto) 0.3 Thou/mm3 (0.0-0.8); Monocytes % (Auto) 3 % (0-12); Neutrophils # (Auto) 8.3 Thou/mm3 (1.8-7.7); Neutrophils % (Auto) 85 % (37-80); Nucleated Red Blood Cell # 0.00 Thou/mm3 (0.00-0.00); Nucleated Red Blood Cell % 0 /100 WBC (0); Platelet Count 239 Thou/mm3 (140-440); RDW Standard Deviation 48.0 fL (35.1-43.9); Red Blood Count 5.37 Miln/mm3 (4.50-5.90); White Blood Count 9.8 Thou/mm3 (3.8-10.6)
[2025-07-30] MEDS: LACTULOSE SYRUP 20 GM/30 ML UDC 40 GM PO (05:41)
[2025-07-30 06:04] LABS: Anion Gap 8 (7-16); BUN/Creatinine Ratio 12 Ratio (12-20); Blood Urea Nitrogen 11 mg/dL (9-23); Calcium 9.6 mg/dL (8.3-10.6); Carbon Dioxide 28.3 mMol/L (20.0-31.0); Chloride 102 mMol/L (98-107); Creatinine (Component) 0.9 mg/dL (0.6-1.3); Estimated Creatinine Clearance 148.3 mL/min (>60); Glucose 149 mg/dL (74-106); Magnesium 2.1 mg/dL (1.6-2.6); Osmolality,Calculated 278 (275-295); Phosphorous 3.5 mg/dL (2.4-5.1); Potassium 4.5 mMol/L (3.4-5.1); Sodium 138 mMol/L (136-145); eGFR > 60 See Note
--- NOTE | 2025-07-30 09:46 | ESDS_ITS ---
<Statement entered by Tania Welch MD - 08/01/25 17:41> I reviewed above note and agree with findings and plans. I have also personally examined the patient with medicine team and went over assessment and plan with medical team including sports team marketing intern and resident physician. <Statement entered by Leticia Du MD - 07/31/25 13:22> I discussed with and supervised the sports team marketing intern physician who took care of this patient. I personally saw and examined the patient and discussed the assessment and plan with the entire medicine team, including my attending Dr. Welch, I agree with most of the assessment and plan as documented below Leticia Du M.D. PGY-3 Disclaimer: Despite multiple revisions, due to the dictation software being used, the document bellow may not be free of grammatical errors including phonetic/typographic errors. However, this does not deter from our commitment to providing health care in the patient's best interest in mind. 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 Reyes is a 44-year-old male with a medical history of morbid obesity, schizophrenia, hypertension, type 2 diabetes mellitus, obstructive sleep apnea , obesity hypoventilation syndrome (on 2 L oxygen at baseline), COPD, and a recent history of COVID-pneumonia, for which he was discharged from the hospital. He presents to the emergency department with worsening shortness of breath. pt was intubated on admission to the ICU, and then successfully extubated on 07/28, continued on bipap prn and duonebs, steroids, and then transitioned to NC and bipap at night. 07/29/2025: Pt was downgraded from ICU today to floors, satting well on 4L NC and bipap at night. nursing noted that pt has not had BM in several days. plan to give lactulose 40 mg tid elva. Completed abx ceftriaxone and azithro abx 5 day course. On 07/30/2025, patient had remained stable overnight, continued at baseline o2 requirements and felt ready to go home. He was medically cleared and discharged in stable condition. Recommendations Complete your Prednisone 40mg for 5 days as part of treatment for COPD exacerbation. Continue using your oxygen at home as prescribed. Check your oxygen saturation with a pulse ox periodically. Adjust your oxygen requirement to keep oxygen 95- 98%. Please seek psychiatry referral from your primary doctor. Your psychiatric medications need adjustment to avoid over sedation. Continue using home CPAP during sleep at night and also if sleeping during the day. Follow up with your primary doctor in 1-2 weeks. Discharge Diagnoses: #Acute hypercarbic respiratory failure, s/p extubation (07/28) #Community-acquired pneumonia #History of BHAVESH/OHS #Unspecified psychotic disorder #Schizophrenia #primary hypertension #Metabolic syndrome. #NIDDM type II [6.6%] #MASLD Patient's plan and care discussed with my attending, Dr. Welch and my senior Dr. Du. Alexy Ayers, PGY-1 ([facility] Resident) Time Spent with Patient Time attestation: Total time spent providing and/or coordinating discharge services: Time spent: Greater than 30 minutes Exam Vital Signs Temp Pulse Resp BP Pulse Ox O2 Del Method O2 Flow Rate 97.0 F 81 19 140/87 H 91 L BiPAP 3 07/30/25 08:00 07/30/25 08:00 07/30/25 08:00 07/30/25 08:00 07/30/25 08:00 07/30/25 08:00 07/30/25 08:00 FiO2 40 07/30/25 08:00 Narrative Exam General: Obese male patient, some food staining the gown, sitting upright in no acute distress. HEENT: No JVD noted. Mucosa moist. Pupils are equal and reactive to light bilaterally Cardiovascular: Normal S1 and S2. Regular rate and rhythm. No murmur appreciated Respiratory: Clear to auscultation bilaterally without wheezes or crackles. Abdomen: Soft, nontender, not distended, Skin: Dry, no rashes or bruising Musculoskeletal: No gross injuries. Able to move all 4 extremities. Non edematous lower extremities. Neuro: Alert and oriented x3. No focal neuro deficits. Psych: Somewhat fidgity with sporadic movements. Some fixation needing redirection. Discharge Plan Plan Patient Disposition: HOME (Self Care) Patient condition on transfer: Stable Prescriptions/Referrals Prescriptions/Med Rec: New prednisone 20 mg tablet 40 mg PO QDAY 5 Days Qty: 10 0RF Continued metformin 500 mg tablet 500 mg PO BID Patient Comments: TAKE 1 TABLET BY MOUTH TWICE A DAY WITH FOOD fluticasone propionate 44 mcg/actuation HFA aerosol inhaler 44 mcg INHALATION PRN PRN (Reason: sob) cholecalciferol (vitamin D3) 50 mcg (2,000 unit) capsule 50 mcg PO DAILY Patient Comments: TAKE 1 TABLET ORALLY EVERY DAY carvedilol 6.25 mg tablet 6.25 mg PO BID gemfibrozil 600 mg tablet 600 mg PO BID Patient Comments: TAKE 1 TABLET BY MOUTH TWICE A DAY 30 MINUTES BEFORE MORNING AND EVENING MEAL loratadine 10 mg tablet 10 mg PO QDAY Patient Comments: TAKE 1 TABLET BY MOUTH EVERY DAY (DME) [email or web address] Caroline 3 Sensor Device See Rx Instructions .Route Qty: 1 0RF Rx Instructions: As directed furosemide [Lasix] 20 mg tablet 20 mg PO QAM Qty: 30 0RF atorvastatin 20 mg tablet 20 mg PO HS 30 Days Qty: 0 0RF Patient Comments: TAKE 1 TABLET BY MOUTH EVERY DAY cetirizine 10 mg tablet 10 mg PO QDAY Patient Comments: TAKE 1 TABLET BY MOUTH EVERY DAY lisinopril 10 mg tablet 10 mg PO QDAY Patient Comments: TAKE 1 TABLET BY MOUTH EVERY DAY benztropine 1 mg tablet 1 mg PO BID Patient Comments: TAKE 1 TABLET BY MOUTH TWICE A DAY azelastine 137 mcg (0.1 %) spray,non-aerosol 2 spray INTRANASAL Q12H benzonatate 200 mg capsule 200 mg PO TID Patient Comments: TAKE 1 CAPSULE BY MOUTH THREE TIMES A DAY NEEDED FOR COUGH haloperidol 10 mg tablet 10 mg PO BID Patient Comments: TAKE 1 TABLET BY MOUTH TWICE A DAY Discontinued prednisone 20 mg tablet 40 mg PO QDAY Qty: 5 0RF Referrals: Rod Hernandez PA-C [Primary Care Provider] Patient/Caregiver Discharge Instructions Other Discharge Activity Instructions:: Complete your Prednisone 40mg for 5 days as part of treatment for COPD exacerbation. Continue using your oxygen at home as prescribed. Check your oxygen saturation with a pulse ox periodically. Adjust your oxygen requirement to keep oxygen 95- 98%. Please seek psychiatry referral from your primary doctor. Your psychiatric medications need adjustment to avoid over sedation. Continue using home CPAP during sleep at night and also if sleeping during the day. Follow up with your primary doctor in 1-2 weeks. Education Materials: Chest and Lung Problems, CPAP Print Language: Tamazight Stand Alone Forms: Domitila Award Info., Patient Portal Info Letter Discharge Order Discharge Orders: Discharge (Routine); Ordered 07/30/25 Ordered By: Eli Ashton Quality Discharge Quality Measures VTE prophylaxis
[2025-07-30] MEDS: ENOXAPARIN SOD INJ 60 MG/0.6 ML SYRINGE 40 MG SC (10:02)
--- NOTE | 2025-07-30 11:53 | PC.SS ---
Addendum entered by Mishel So 07/30/25 12:08: SS provided pt with [facility] which contains Out Patient PT's phone# and address. Pt is aware to contact family to bring small O2 tank for transport. Original Note: SS has faxed and sent inquiry using [employer] to Out Patient PT.
[2025-07-30 11:58] LABS: COVID-19 Confirmatory PCR Negative (Neg)
--- NOTE | 2025-07-30 13:39 | PC.NURSE ---
Patient necklace not found. Patient provided with risk management number to report missing necklace.
--- NOTE | 2025-07-30 14:03 | PC.PT ---
Patient will be D/C from PT services 12/09 patient is ambulating to the bathroom xI with no AD per RN.
== END 2025-07-30 14:25 | disposition home or self-care (01) | DRG 137 ==
LOC: SERX 07-25 01:55 → SERHOLD 07-25 05:54 → S2SX 07-25 05:54 → S2NX 07-29 13:33
PROVIDERS: Internal Medicine; Student in an Organized Health Care Education/Training Program; Admitting Provider Student in an Organized Health Care Education/Training Program; Emergency Provider Emergency Medicine; PCP Physician Assistant; Visit Provider Internal Medicine
DX: U07.1 COVID-19 (principal); J96.21 Acute and chronic respiratory failure with hypoxia; E11.9 Type 2 diabetes mellitus without complications; F20.9 Schizophrenia, unspecified; E66.2 Morbid (severe) obesity with alveolar hypoventilation; Z68.43 Body mass index [BMI] 50.0-59.9, adult; J44.1 Chronic obstructive pulmonary disease with (acute) exacerbation; J96.22 Acute and chronic respiratory failure with hypercapnia; J12.82 Pneumonia due to coronavirus disease 2019; J44.0 Chronic obstructive pulmonary disease with (acute) lower respiratory infection; I10 Essential (primary) hypertension; E88.810 Metabolic syndrome; R79.89 Other specified abnormal findings of blood chemistry; Z79.84 Long term (current) use of oral hypoglycemic drugs; Z79.899 Other long term (current) drug therapy; D64.9 Anemia, unspecified
CPT/HCPCS: 36415; 36600; 71045; 80048; 80053; 80061; 80307; 82803; 83036; 83605; 83735; 84100; 84145; 84484; 85025; 87040; 87077; 87081; 87186; 87205; 87400; 87635; 87811; 93005; 93225; 93306; 94002; 94003; 94640; 94644; 94660; 94667; 96372; 96374; 96376; 97162; 99284; A9270; J0456; J0696; J1644; J1650; J1815; J2470; J2704; J2919; J3010; J3475; J3490; J7050; J7512

== ENCOUNTER 2025-08-16 17:06 | Emergency (ER) | payer MEDICAID, SELFPAY ==
[2025-08-16 17:07] VITALS: BP 132/73; PULSE 93; RESP 22; TEMP 36.9; O2SAT 94; BMI 52.1
[2025-08-16 17:10] VITALS: PULSE 93; RESP 24; O2SAT 94
--- NOTE | 2025-08-16 17:31 | EKG_ITS ---
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
--- NOTE | 2025-08-16 17:31 | XR_ITS ---
EXAMINATION: AP chest single view TECHNIQUE: AP chest single view Date and time: August 16, 2025, 1742 hours INDICATIONS: Shortness of breath and weakness today. FINDINGS: Mild enlargement cardiac contour Moderate vascular congestion. No pneumonia or pulmonary edema IMPRESSION: Moderate vascular congestion No pneumonia or pulmonary edema
--- NOTE | 2025-08-16 17:32 | PD.EDSOB ---
ED SOB =RME/HPI General Chief Complaint: Shortness of Breath/Dyspnea Stated Complaint: SOB Time Seen by Provider: 08/16/25 17:19 Arrival date/time: 08/16/25 17:06 RME / HPI RME / HPI Narrative: 44-year-old male with past medical history of morbid obesity, schizophrenia, hypertension, type 2 diabetes mellitus, obstructive sleep apnea , obesity hypoventilation syndrome (on 2 L oxygen at baseline), COPD, was brought in by EMS for evaluation regarding shortness of breath. Apparently patient was using his CPAP machine, and woke up gasping for air. When the EMS arrived patient was satting 84%. According to the patient has been using the concentrator because his portable oxygen is broken and not working. Currently patient is satting 95% on 6 L. Patient denies any cough denies any shortness of breath denies any other complaint except for snoring sound even if he is awake. No other complaints noted Related Data Home Medications ?Medication ?Instructions ?Recorded ?Confirmed carvedilol 6.25 mg tablet 6.25 mg PO BID 02/15/24 07/30/25 gemfibrozil 600 mg tablet 600 mg PO BID 02/15/24 07/30/25 loratadine 10 mg tablet 10 mg PO QDAY 02/15/24 07/30/25 cholecalciferol (vitamin D3) 50 50 mcg PO DAILY 12/03/24 07/30/25 mcg (2,000 unit) capsule fluticasone propionate 44 44 mcg inhalation PRN PRN sob 12/03/24 07/30/25 mcg/actuation HFA aerosol inhaler metformin 500 mg tablet 500 mg PO BID 12/03/24 07/30/25 azelastine 137 mcg (0.1 %) nasal 2 spray intranasal Q12H 07/20/25 07/30/25 spray benzonatate 200 mg capsule 200 mg PO TID 07/20/25 07/30/25 benztropine 1 mg tablet 1 mg PO BID 07/20/25 07/30/25 cetirizine 10 mg tablet 10 mg PO QDAY 07/20/25 07/30/25 haloperidol 10 mg tablet 10 mg PO BID 07/20/25 07/30/25 lisinopril 10 mg tablet 10 mg PO QDAY 07/20/25 07/30/25 Previous Rx's ?Medication ?Instructions ?Recorded blood-glucose sensor (FreeStyle #1 ea 10/30/24 [place] 3 Sensor device) furosemide 20 mg tablet (Lasix) 20 mg PO QAM #30 tabs 03/10/25 atorvastatin 20 mg tablet 20 mg PO HS 30 days #0 tabs 05/31/25 Allergies Allergy/AdvReac Type Severity Reaction Status Date / Time No Known Allergies Allergy Unverified 02/16/24 08:13 Review of Systems Review of Systems Narrative Review of Systems: Review of system reviewed and within normal limits except mentioned in HPI ED Exam Narrative Physical exam: VITAL SIGNS: Reviewed. GENERAL APPEARANCE: Alert and interactive, follows commands, no acute distress, HEAD AND FACE: Non-traumatic. ENT: PERRL, pink conjunctivitis, eyelid no trauma, Mucous membrane moist. NECK: Supple, nontender, no nuchal rigidity. CHEST: No tenderness, no crepitus, no paradoxical movement, no retractions. LUNGS: Clear, well ventilated, symmetric, no rales, no wheezing, no ronchi, no stridor, good breath sounds bilaterally. HEART: Regular rate, regular rhythm, no murmur, no gallops. ABDOMEN: Soft, positive bowel sounds, nondistended, no guarding, nontender, no rebound, no masses, RECTAL: Deferred. GENITAL: Deferred. NEUROLOGICAL: Gross motor function intact sensory function intact, Appropriate for age. MUSCULOSKELETAL: low back nontender, full range of motion. EXTREMITIES: Nontender, full range of motion. SKIN: Color pink, dry, no rash, no lacerations, no abrasions, no contusions. LYMPHATICS: Deferred. Normal patient VITAL SIGNS: Reviewed. Course Quality Measures none Orders Category Date Time Status EKG (ED ONLY) *Do not use* NOW Care 08/16/25 17:31 Completed Insert IV NOW Care 08/16/25 17:44 Active EKG (ED Only) Stat Exams 08/16/25 17:31 Draft XR chest 1V Stat Exams 08/16/25 17:31 Taken B-Type Natriuretic Peptide Stat Lab 08/16/25 17:43 Completed Blood Culture (Lab) Stat Lab 08/16/25 17:43 Received CBC Stat Lab 08/16/25 17:43 Completed Comprehensive Metabolic Panel Stat Lab 08/16/25 17:43 Completed Lactate (Lactic Acid) Stat Lab 08/16/25 17:43 Completed Partial Thromboplastin Time Stat Lab 08/16/25 17:43 Completed Procalcitonin Stat Lab 08/16/25 17:43 Completed Troponin I Stat Lab 08/16/25 17:43 Completed VBG [Venous Blood Gas] Stat Lab 08/16/25 17:43 Completed Vital Signs Vital signs: Vital Signs Temperature 98.5 F 08/16/25 17:07 Pulse Rate 93 08/16/25 17:07 Respiratory Rate 22 H 08/16/25 17:07 Blood Pressure 132/73 H 08/16/25 17:07 Pulse Oximetry (%) 94 L 08/16/25 17:07 Oxygen Delivery Method Nasal Cannula 08/16/25 17:07 Oxygen Flow Rate 6 08/16/25 17:07 Shortness of Breath / Dyspnea MDM Narrative MDM Narrative:: 44-year-old male with past medical history of morbid obesity, schizophrenia, hypertension, type 2 diabetes mellitus, obstructive sleep apnea , obesity hypoventilation syndrome (on 2 L oxygen at baseline), COPD, was brought in by EMS for evaluation regarding shortness of breath. Apparently patient was using his CPAP machine, and woke up gasping for air. When the EMS arrived patient was satting 84%. According to the patient has been using the concentrator because his portable oxygen is broken and not working. Currently patient is satting 95% on 6 L. Patient denies any cough denies any shortness of breath denies any other complaint except for snoring sound even if he is awake. No other complaints noted Patient's workup today all came back unremarkable. Including VBG. Except for slight hypoxemia of 77%. Patient is satting 95% on 2 L. Patient verbalized significant improvement of symptoms. Patient did not receive any medication in the emergency room. Chest x-ray came back unremarkable. Stable for discharge home. Patient is on home oxygen 24/, 2 L, also using CPAP during the night. Patient data External records reviewed:: None Clinical information provided by:: patient Social determinants that could affect healthcare access:: none Patient has the following chronic illnesses:: Morbid obesity obesity, schizophrenia, hypertension, diabetes mellitus, obstructive sleep apnea, obesity hypoventilation syndrome, COPD How is presenting disease/condition affected by chronic disease/condition?: exacerbated by Evaluation data The following diagnostics were reviewed and interpreted by me:: lab results, radiology exam(s) and EKG tracing(s) Lab and/or radiology exams considered but not ordered:: None Interpretation Summary: See results MDM Medications / Prescriptions Medications or Prescriptions considered but not ordered:: None Medication administrations:: None Consultations Consultation(s) initiated? (list below): No Diagnosis Shortness of Breath Differential Diagnosis: acute exacerbation of chronic obstructive airways disease and community acquired pneumonia Most likely diagnosis given after review of the tests above:: Shortness of breath, Admission Indicated Admission indicated?: not indicated Admission Request Was there a request for admission?: No Disposition Plan Disposition Plan: Discharge Discharge Attestation Discharge Attestation: The patient and all family members were given an opportunity to ask questions and understood the discharge instructions. Discharge instructions specifically effects, indications for sooner follow up or return to the emergency department, and the expected course of current diagnosis. Patient condition: Stable Discharge Plan Plan Patient Disposition: HOME (Self Care) Discharge Disposition comment: Stable Prescriptions/Referrals Prescriptions/Med Rec: No Action metformin 500 mg tablet 500 mg PO BID Patient Comments: TAKE 1 TABLET BY MOUTH TWICE A DAY WITH FOOD fluticasone propionate 44 mcg/actuation HFA aerosol inhaler 44 mcg INHALATION PRN PRN (Reason: sob) cholecalciferol (vitamin D3) 50 mcg (2,000 unit) capsule 50 mcg PO DAILY Patient Comments: TAKE 1 TABLET ORALLY EVERY DAY carvedilol 6.25 mg tablet 6.25 mg PO BID gemfibrozil 600 mg tablet 600 mg PO BID Patient Comments: TAKE 1 TABLET BY MOUTH TWICE A DAY 30 MINUTES BEFORE MORNING AND EVENING MEAL loratadine 10 mg tablet 10 mg PO QDAY Patient Comments: TAKE 1 TABLET BY MOUTH EVERY DAY (DME) [employer] [place] 3 Sensor Device See Rx Instructions .Route Qty: 1 0RF Rx Instructions: As directed furosemide [Lasix] 20 mg tablet 20 mg PO QAM Qty: 30 0RF atorvastatin 20 mg tablet 20 mg PO HS 30 Days Qty: 0 0RF Patient Comments: TAKE 1 TABLET BY MOUTH EVERY DAY cetirizine 10 mg tablet 10 mg PO QDAY Patient Comments: TAKE 1 TABLET BY MOUTH EVERY DAY lisinopril 10 mg tablet 10 mg PO QDAY Patient Comments: TAKE 1 TABLET BY MOUTH EVERY DAY benztropine 1 mg tablet 1 mg PO BID Patient Comments: TAKE 1 TABLET BY MOUTH TWICE A DAY azelastine 137 mcg (0.1 %) spray,non-aerosol 2 spray INTRANASAL Q12H benzonatate 200 mg capsule 200 mg PO TID Patient Comments: TAKE 1 CAPSULE BY MOUTH THREE TIMES A DAY NEEDED FOR COUGH haloperidol 10 mg tablet 10 mg PO BID Patient Comments: TAKE 1 TABLET BY MOUTH TWICE A DAY Referrals: Rod Hernandez PA-C [Primary Care Provider] - In 1 week Problem List Clinical Impression: Shortness of breath, Obesity hypoventilation syndrome Patient/Caregiver Discharge Instructions Discharge Activity: activity as tolerated Education Materials: Obesity and Its Impact on Health Additional Instructions: Thank you for the opportunity for serving you today. You are stable for discharged . You are advised to: Follow-up with your PCP in 1 to 2 days Return to ED for worsening of symptoms Continue using your CPAP and oxygen as instructed Print Language: Ethiopian Stand Alone Forms: Domitila Award Info., Patient Portal Info Letter JENNIFER/SHIRA Supervising Physician SHANON Supervising Physician: MD Doretha
[2025-08-16 18:07] LABS: Lactate (Lactic Acid) 1.7 mMol/L (0.4-2.0)
[2025-08-16 18:08] LABS: Base Excess, Venous 3 (-3-3); O2 Saturation, Venous 77 % (96-97); PCO2, Venous 55 mmHg (36-56); PO2, Venous 42 mmHg (15-58); pH, Venous 7.35 (7.33-7.66)
[2025-08-16 18:10] LABS: Basophils # (Auto) 0.1 Thou/mm3 (0.0-0.2); Basophils % (Auto) 1 % (0-2.5); Eosinophils # (Auto) 0.4 Thou/mm3 (0.0-0.5); Eosinophils % (Auto) 5 % (0-10); Hematocrit 42.2 % (41.0-53.0); Hemoglobin 13.7 g/dL (13.5-16.0); Immature Granulocytes Auto 0.07 Thou/mm3 (0.00-0.00); Lymphocytes # (Auto) 1.7 Thou/mm3 (1.0-4.8); Lymphocytes % (Auto) 17 % (10-50); Mean Corpuscular HGB Conc 32.5 g/dl (31.0-37.0); Mean Corpuscular Hemoglobin 28.5 pg (25.0-35.0); Mean Corpuscular Volume 88 fL (80-100); Monocytes # (Auto) 0.7 Thou/mm3 (0.0-0.8); Monocytes % (Auto) 7 % (0-12); Neutrophils # (Auto) 6.9 Thou/mm3 (1.8-7.7); Neutrophils % (Auto) 71 % (37-80); Nucleated Red Blood Cell # 0.00 Thou/mm3 (0.00-0.00); Nucleated Red Blood Cell % 0 /100 WBC (0); Platelet Count 235 Thou/mm3 (140-440); RDW Standard Deviation 53.0 fL (35.1-43.9); Red Blood Count 4.80 Miln/mm3 (4.50-5.90); White Blood Count 9.8 Thou/mm3 (3.8-10.6)
[2025-08-16 18:19] VITALS: BP 143/70; PULSE 76; RESP 22; TEMP 36.3; O2SAT 95
[2025-08-16 18:21] LABS: Partial Thromboplastin Time 28.2 Seconds (22.0-36.0)
[2025-08-16 18:32] LABS: Alanine Aminotransferase 62 U/L (10-49); Albumin, Serum 4.3 gm/dL (3.5-5.0); Albumin/Globulin Ratio 1.9 (1.2-2.2); Alkaline Phosphatase 87 U/L (46-116); Anion Gap 9 (7-16); Aspartate Amino Transferase 25 U/L (0-34); B-Type Natriuretic Peptide < 20 pg/mL (0-100); BUN/Creatinine Ratio 10 Ratio (12-20); Bilirubin,Total 0.3 mg/dL (0.3-1.2); Blood Urea Nitrogen 10 mg/dL (9-23); Calcium 9.3 mg/dL (8.3-10.6); Calcium (Corrected) 9.3 mg/dL (8.5-10.1); Carbon Dioxide 29.7 mMol/L (20.0-31.0); Chloride 105 mMol/L (98-107); Creatinine (Component) 1.0 mg/dL (0.6-1.3); Estimated Creatinine Clearance 133.4 mL/min (>60); Globulin 2.3 gm/dL (2.3-3.5); Glucose 117 mg/dL (74-106); Osmolality,Calculated 286 (275-295); Potassium 3.9 mMol/L (3.4-5.1); Procalcitonin 0.06 ng/ml (0.0-0.49); Sodium 144 mMol/L (136-145); Total Protein 6.6 gm/dL (5.7-8.2); Troponin I < 0.002 ng/mL (0.0-0.045); eGFR > 60 See Note
[2025-08-16 18:57] VITALS: BP 145/86; PULSE 86; RESP 18; O2SAT 96
== END 2025-08-16 20:48 | disposition home or self-care (01) ==
PROVIDERS: Nurse Practitioner Family; Emergency Provider Family Medicine; PCP Physician Assistant
DX: E66.2 Morbid (severe) obesity with alveolar hypoventilation (principal); J44.9 Chronic obstructive pulmonary disease, unspecified; I10 Essential (primary) hypertension; E11.9 Type 2 diabetes mellitus without complications; F20.9 Schizophrenia, unspecified; Z79.84 Long term (current) use of oral hypoglycemic drugs
CPT/HCPCS: 36415; 71045; 80053; 82803; 83605; 83880; 84145; 84484; 85025; 85730; 87040; 93005; 99283

== ENCOUNTER 2025-08-23 23:51 | Emergency (ER) | payer MEDICAID, SELFPAY ==
[2025-08-23 23:53] VITALS: O2SAT 94; BMI 52.1
[2025-08-23 23:58] VITALS: BP 139/74; PULSE 95; RESP 18; TEMP 37.2; O2SAT 95
--- NOTE | 2025-08-24 00:11 | PD.EDSOB ---
ED SOB =RME/HPI General Chief Complaint: Shortness of Breath/Dyspnea Stated Complaint: SOB Time Seen by Provider: 08/24/25 00:09 Arrival date/time: 08/23/25 23:51 RME / HPI RME / HPI Narrative: See [facility] for Dr. Palmer's HPI Documentation. Related Data Home Medications ?Medication ?Instructions ?Recorded ?Confirmed carvedilol 6.25 mg tablet 6.25 mg PO BID 02/15/24 07/30/25 gemfibrozil 600 mg tablet 600 mg PO BID 02/15/24 07/30/25 loratadine 10 mg tablet 10 mg PO QDAY 02/15/24 07/30/25 cholecalciferol (vitamin D3) 50 50 mcg PO DAILY 12/03/24 07/30/25 mcg (2,000 unit) capsule fluticasone propionate 44 44 mcg inhalation PRN PRN sob 12/03/24 07/30/25 mcg/actuation HFA aerosol inhaler metformin 500 mg tablet 500 mg PO BID 12/03/24 07/30/25 azelastine 137 mcg (0.1 %) nasal 2 spray intranasal Q12H 07/20/25 07/30/25 spray benzonatate 200 mg capsule 200 mg PO TID 07/20/25 07/30/25 benztropine 1 mg tablet 1 mg PO BID 07/20/25 07/30/25 cetirizine 10 mg tablet 10 mg PO QDAY 07/20/25 07/30/25 haloperidol 10 mg tablet 10 mg PO BID 07/20/25 07/30/25 lisinopril 10 mg tablet 10 mg PO QDAY 07/20/25 07/30/25 Previous Rx's ?Medication ?Instructions ?Recorded blood-glucose sensor (FreeStyle #1 ea 10/30/24 [place] 3 Sensor device) furosemide 20 mg tablet (Lasix) 20 mg PO QAM #30 tabs 03/10/25 atorvastatin 20 mg tablet 20 mg PO HS 30 days #0 tabs 05/31/25 albuterol sulfate 90 mcg/actuation 2 puff inhalation Q6H PRN 08/24/25 aerosol inhaler shortness of breath or wheezing #8.5 grams alprazolam 0.5 mg tablet (Xanax) 0.5 mg PO BID PRN anxiety #10 tabs 08/24/25 azithromycin 500 mg tablet 500 mg PO QDAY 3 days #3 tabs 08/24/25 (Zithromax TRI-PEDRO) prednisone 50 mg tablet 50 mg PO BID 3 days #6 tabs 08/24/25 Allergies Allergy/AdvReac Type Severity Reaction Status Date / Time No Known Allergies Allergy Verified 08/23/25 23:53 Review of Systems Review of Systems Systems Reviewed: All systems reviewed, normal except as documented Past Medical History Past Medical History CARDIAC: Positive Hypercholesterolemia, Congestive Heart Failure and Hypertension RESPIRATORY: Positive Chronic Obstructive Pulmonary Disease (COPD), Asthma, Pneumonia and Sleep Apnea ENDOCRINE: Positive Diabetes Mellitus Type 2 PSYCHO/SOCIAL: Positive Schizophrenia and Recreational Drug Use OTHER HISTORY: Positive Chicken Pox ED Exam Narrative Physical exam: See MDM for Dr. Palmer's Physical Exam Documentation. Course Quality Measures none Orders Category Date Time Status Bedside COVID-19 Antigen Test NOW Care 08/24/25 00:14 Completed EKG (ED ONLY) *Do not use* NOW Care 08/24/25 00:15 Completed Saline [Insert IV] NOW Care 08/24/25 00:14 Completed Straight [In and Out Catheter] X1 Care 08/24/25 00:[address] chest abdomen pelvis wo Stat Exams 08/24/25 01:09 Taken EKG (ED Only) Stat Exams 08/24/25 00:15 Ordered XR chest 1V portable Stat Exams 08/24/25 00:15 Taken ABG [Arterial Blood Gas] Stat Lab 08/24/25 00:59 Completed Alcohol, Blood Medical Stat Lab 08/24/25 00:25 Completed BNP [B-Type Natriuretic Peptide] Stat Lab 08/24/25 00:25 Completed Bilirubin,Direct Stat Lab 08/24/25 00:25 Completed CBC Stat Lab 08/24/25 00:25 Completed CMP [Comprehensive Metabolic Panel] Stat Lab 08/24/25 00:25 Completed D-Dimer Stat Lab 08/24/25 00:25 Completed Drug Screen,Urine Stat Lab 08/24/25 01:14 Completed Influenza A & B Rapid Panel Stat Lab 08/24/25 01:54 Completed Lipase Stat Lab 08/24/25 00:25 Completed Magnesium Stat Lab 08/24/25 00:25 Completed TSH [Thyroid Stimulating Hormone] Stat Lab 08/24/25 00:25 Completed Troponin I Stat Lab 08/24/25 00:25 Completed UA, C/S IF [Urinalysis, C/S if Indicated] Stat Lab 08/24/25 01:14 Completed ALPRazoLAM [Xanax] Med 08/24/25 02:59 Discontinued 0.5 mg PO X1 ONE Albuterol/Ipratr Rt Katarina [Duoneb Rt Katarina] Med 08/24/25 00:14 Discontinued 3 ml INH X1 ONE Azithromycin Po [Zithromax PO] Med 08/24/25 03:07 Discontinued 500 mg PO X1 ONE MethylPREDNISolone.* [SoluMEDROL Inj] Med 08/24/25 00:14 Discontinued 125 mg IVP X1 ONE Vital Signs Vital signs: Vital Signs Temperature 98.9 F 08/23/25 23:58 Pulse Rate 95 08/23/25 23:58 Respiratory Rate 18 08/23/25 23:58 Blood Pressure 139/74 H 08/23/25 23:58 Pulse Oximetry (%) 95 08/23/25 23:58 Oxygen Delivery Method Room Air 08/23/25 23:58 Shortness of Breath / Dyspnea MDM Narrative MDM Narrative:: This section includes all my notes and documentations, including HPI, PE, and ED course. Arnulfo Palmer MD HPI: 44 y/o male with Hx of COPD, CHF, and Recreational Drug Use with shortness of breath. He has trouble describing the onset and exacerbating factors and relieving factors. He has trouble reporting if he has orthopnea or PND. He denies cough. No fever. No leg swelling. Has sleep apnea. Uses oxygen at home 24 hours a day. No other complaints. ROS: All negative except as documented in HPI. Physical Exam: General: Alert and oriented. Appears anxious. Eyes: Conjunctivae and lids clear. ENT: No nasal congestion. Neck: Supple. Heart: RRR. Lungs: No respiratory distress. Good air movement with rhonchi. Abdomen: Soft and nontender. Normal bowel sounds. No distension. No rebound or guarding. Back: No CVA tenderness. Legs: No edema. Skin: Warm and dry. Neuro: Alert and oriented X 3. I reviewed all diagnostic test results: My interpretation of the EKG is sinus rhythm with no acute ST?T changes. My interpretation of the chest x-ray is NAD. My review of the Chest/Abdomen/Pelvis CT report is NAD. Blood tests and urine tests unremarkable. Covid/Influenza: Negative At this point, diagnoses include: Respiratory Infection Anxiety Treatment here included: Duoneb SoluMedrol 125 mg IV Zithromax 500 mg orally Xanax 0.5 mg orally Significant improvement noted. Recommended outpatient care. Based on my best medical judgment, made decision no further evaluation or treatment indicated at this time. Patient understands and agrees to the discharge instructions customized and printed, see below. Discharge instructions from Dr. Palmer: --No physical exertion for 3 days to help rest the lungs. ?No smoking or exposure to smoking or pets or dust or cold or humidity. --Zithromax to kill the germs causing the bronchitis. --Prednisone to help decrease the swelling in the airways. --Albuterol 2 puffs every 4-6 hours for 3 days to help keep the airways open. Then as needed for cough or shortness of breath. --Xanax for anxiety, will help sleep. --See a private doctor on 08/26/2025 for recheck. Ask to review all test results and official radiology reports, to make sure you receive all necessary follow-ups and monitoring. Ask for help until you are completely better. --Seek immediate medical care with worsening or with any concerns. Arnulfo Palmer MD Patient data External records reviewed:: [facility] previous records (Reviewed prior ED records from 08/16/25. Patient was seen for Obesity hypoventilation syndrome.) Clinical information provided by:: patient Social determinants that could affect healthcare access:: substance use Patient has the following chronic illnesses:: Hypercholesterolemia, Congestive Heart Failure, Hypertension, Chronic Obstructive Pulmonary Disease (COPD), Asthma, Sleep Apnea, Diabetes Mellitus Type 2, Schizophrenia and Recreational Drug Use How is presenting disease/condition affected by chronic disease/condition?: exacerbated by Evaluation data The following diagnostics were reviewed and interpreted by me:: lab results, radiology exam(s) and EKG tracing(s) Lab and/or radiology exams considered but not ordered:: None Interpretation Summary: I reviewed all diagnostic test results: My interpretation of the EKG is sinus rhythm with no acute ST?T changes. My interpretation of the chest x-ray is NAD. My review of the Chest/Abdomen/Pelvis CT report is NAD. Blood tests and urine tests unremarkable. Covid/Influenza: Negative Medications / Prescriptions Medications or Prescriptions considered but not ordered:: None Medication administrations:: Medication Administration History Discontinued Medications Albuterol/Ipratropium (Albuterol/Ipratropium (Duoneb) Rt Katarina 3 Ml Nebu) 3 ml INH X1 ONE Stop: 08/24/25 00:15 Last Admin: 08/24/25 00:39 Dose: 3 ml Documented By: OCHOA Alprazolam (Alprazolam 0.25 Mg Tablet) 0.5 mg PO X1 ONE Stop: 08/24/25 03:00 Last Admin: 08/24/25 03:10 Dose: 0.5 mg Documented By: YAMINI Azithromycin (Azithromycin 250 Mg Tablet) 500 mg PO X1 ONE Stop: 08/24/25 03:08 Last Admin: 08/24/25 03:13 Dose: 500 mg Documented By: YAMINI Methylprednisolone Sodium Succinate (Methylprednisolone Sod Succ 62.5 Mg/Ml 2ml Vial) 125 mg IVP X1 ONE Stop: 08/24/25 00:15 Last Admin: 08/24/25 00:50 Dose: 125 mg Documented By: TESSA Treatment here included: Duoneb SoluMedrol 125 mg IV Zithromax 500 mg orally Xanax 0.5 mg orally Consultations Consultation(s) initiated? (list below): No Diagnosis Shortness of Breath Differential Diagnosis: acute exacerbation of chronic obstructive airways disease, congestive heart failure, community acquired pneumonia and pulmonary embolism Most likely diagnosis given after review of the tests above:: Respiratory Infection Anxiety Admission Indicated Admission indicated?: not indicated Explain why admission is indicated or not indicated:: With significant improvement and no condition needing emergent intervention, there was no indication for admission. Admission Request Was there a request for admission?: No Disposition Plan Disposition Plan: Discharge Discharge Attestation Discharge Attestation: The patient and all family members were given an opportunity to ask questions and understood the discharge instructions. Discharge instructions specifically effects, indications for sooner follow up or return to the emergency department, and the expected course of current diagnosis. Patient condition: Stable Discharge Plan Plan Patient Disposition: HOME (Self Care) Prescriptions/Referrals Prescriptions/Med Rec: New alprazolam [Xanax] 0.5 mg tablet 0.5 mg PO BID PRN (Reason: anxiety) Qty: 10 0RF prednisone 50 mg tablet 50 mg PO BID 3 Days Qty: 6 0RF albuterol sulfate 90 mcg/actuation HFA aerosol inhaler 2 puff inhalation Q6H PRN (Reason: shortness of breath or wheezing) Qty: 8.5 0RF azithromycin [Zithromax TRI-PEDRO] 500 mg tablet 500 mg PO QDAY 3 Days Qty: 3 0RF No Action metformin 500 mg tablet 500 mg PO BID Patient Comments: TAKE 1 TABLET BY MOUTH TWICE A DAY WITH FOOD fluticasone propionate 44 mcg/actuation HFA aerosol inhaler 44 mcg INHALATION PRN PRN (Reason: sob) cholecalciferol (vitamin D3) 50 mcg (2,000 unit) capsule 50 mcg PO DAILY Patient Comments: TAKE 1 TABLET ORALLY EVERY DAY carvedilol 6.25 mg tablet 6.25 mg PO BID gemfibrozil 600 mg tablet 600 mg PO BID Patient Comments: TAKE 1 TABLET BY MOUTH TWICE A DAY 30 MINUTES BEFORE MORNING AND EVENING MEAL loratadine 10 mg tablet 10 mg PO QDAY Patient Comments: TAKE 1 TABLET BY MOUTH EVERY DAY (DME) [employer] [place] 3 Sensor Device See Rx Instructions .Route Qty: 1 0RF Rx Instructions: As directed furosemide [Lasix] 20 mg tablet 20 mg PO QAM Qty: 30 0RF atorvastatin 20 mg tablet 20 mg PO HS 30 Days Qty: 0 0RF Patient Comments: TAKE 1 TABLET BY MOUTH EVERY DAY cetirizine 10 mg tablet 10 mg PO QDAY Patient Comments: TAKE 1 TABLET BY MOUTH EVERY DAY lisinopril 10 mg tablet 10 mg PO QDAY Patient Comments: TAKE 1 TABLET BY MOUTH EVERY DAY benztropine 1 mg tablet 1 mg PO BID Patient Comments: TAKE 1 TABLET BY MOUTH TWICE A DAY azelastine 137 mcg (0.1 %) spray,non-aerosol 2 spray INTRANASAL Q12H benzonatate 200 mg capsule 200 mg PO TID Patient Comments: TAKE 1 CAPSULE BY MOUTH THREE TIMES A DAY NEEDED FOR COUGH haloperidol 10 mg tablet 10 mg PO BID Patient Comments: TAKE 1 TABLET BY MOUTH TWICE A DAY Referrals: Rod Hernandez PA-C [Primary Care Provider] - In 1 week Problem List Clinical Impression: Respiratory infection Patient/Caregiver Discharge Instructions Discharge Activity: activity as tolerated Education Materials: ED Bronchitis, Antibiotics (Child) Additional Instructions: Discharge instructions from Dr. Palmer: --No physical exertion for 3 days to help rest the lungs. ?No smoking or exposure to smoking or pets or dust or cold or humidity. --Zithromax to kill the germs causing the bronchitis. --Prednisone to help decrease the swelling in the airways. --Albuterol 2 puffs every 4-6 hours for 3 days to help keep the airways open. Then as needed for cough or shortness of breath. --Xanax for anxiety, will help sleep. --See a private doctor on 08/26/2025 for recheck. Ask to review all test results and official radiology reports, to make sure you receive all necessary follow-ups and monitoring. Ask for help until you are completely better. --Seek immediate medical care with worsening or with any concerns. Print Language: Iranian Stand Alone Forms: Domitila Award Info., Patient Portal Info Letter
--- NOTE | 2025-08-24 00:15 | XR_ITS ---
EXAMINATION: AP chest single view TECHNIQUE: AP portable upright chest single view Date and time: August 24, 2025, 0023 hours, comparison August 16, 2025 INDICATIONS: Onset shortness of breath beginning 2 hours ago. FINDINGS: Suspicious for early heart failure Mild enlargement cardiac contour Prominent vascular congestion Mild osteopenia IMPRESSION: Suspicious for early heart failure
[2025-08-24 00:39] VITALS: PULSE 80; RESP 30; O2SAT 94
[2025-08-24] MEDS: ALBUTEROL/IPRATROPIUM (Duoneb) RT SOL 3 ML NEBU INH (00:39)
[2025-08-24 00:44] LABS: Basophils # (Auto) 0.1 Thou/mm3 (0.0-0.2); Basophils % (Auto) 1 % (0-2.5); Eosinophils # (Auto) 0.7 Thou/mm3 (0.0-0.5); Eosinophils % (Auto) 7 % (0-10); Hematocrit 42.8 % (41.0-53.0); Hemoglobin 13.8 g/dL (13.5-16.0); Immature Granulocytes Auto 0.05 Thou/mm3 (0.00-0.00); Lymphocytes # (Auto) 1.9 Thou/mm3 (1.0-4.8); Lymphocytes % (Auto) 19 % (10-50); Mean Corpuscular HGB Conc 32.2 g/dl (31.0-37.0); Mean Corpuscular Hemoglobin 28.4 pg (25.0-35.0); Mean Corpuscular Volume 88 fL (80-100); Monocytes # (Auto) 0.7 Thou/mm3 (0.0-0.8); Monocytes % (Auto) 7 % (0-12); Neutrophils # (Auto) 6.5 Thou/mm3 (1.8-7.7); Neutrophils % (Auto) 66 % (37-80); Nucleated Red Blood Cell # 0.00 Thou/mm3 (0.00-0.00); Nucleated Red Blood Cell % 0 /100 WBC (0); Platelet Count 232 Thou/mm3 (140-440); RDW Standard Deviation 53.3 fL (35.1-43.9); Red Blood Count 4.86 Miln/mm3 (4.50-5.90); White Blood Count 10.0 Thou/mm3 (3.8-10.6)
[2025-08-24] MEDS: MethylPREDNISolone SOD SUCC 62.5 MG/ML 2ML VIAL 125 MG IVP (00:50)
[2025-08-24 00:57] LABS: D-Dimer < 250 ng/mL (<600)
[2025-08-24 01:04] LABS: Base Excess 3 (-3-3); HCO3 29 mEq/L (20-26); Inspired Oxygen, FIO2 4 %; O2 Saturation 69 % (91-98); PCO2 50 mmHg (32.0-48.0); pH, Arterial 7.37 (7.35-7.45)
[2025-08-24 01:08] LABS: B-Type Natriuretic Peptide < 20 pg/mL (0-100)
--- NOTE | 2025-08-24 01:09 | XR_ITS ---
Examination: CT chest, without intravenous contrast. CT abdomen, without intravenous contrast. CT pelvis, without intravenous contrast. 2-D sagittal and coronal reconstructions. 3-D reconstructions. Date and time of exam: August 24, 2025, 0126 hours INDICATIONS: Shortness of breath chest pain abdominal pain onset today CTDI vol (mgy) 20.81 DLP (MGycm) 1818 Technique: Multiple CT images, 3.0 mm slice thickness, obtained chest, abdomen, pelvis, with the high-resolution 64 slice scanner.. Sagittal and coronal 2-D reconstructions are obtained. 3-D reconstructions Low dose protocols were performed. One or more of the following dose reduction techniques were used; automated exposure control, adjustment of the mA and/or KV according to patient size, use of iterative reconstruction technique. Findings: No thoracic aortic aneurysm dilatation Pulmonary artery segments are not enlarged No paratracheal or tracheobronchial or bronchopulmonary adenopathy No pneumonia or pulmonary edema No visualized liver lesion I do not visualize definite gallbladder wall thickening but clinical correlation advised and suggest follow-up gallbladder sonography as clinically warranted No pancreatic or adrenal mass Hepatomegaly 24 cm Splenomegaly 13 cm No renal or ureteral calculi, no hydronephrosis Normal appendix No bowel obstruction or diverticulitis Contracted urinary bladder and no bladder mass or bladder calculi The osseous structures are intact IMPRESSION: No mediastinal lymphadenopathy No pneumonia, pulmonary edema or a pleural disease I do not visualize definite gallbladder wall thickening, but clinical correlation advised, suggest gallbladder sonography follow-up as clinically warranted Hepatosplenomegaly
[2025-08-24 01:14] LABS: Allen Test Performed/OK; PO2 37 mmHg (83-108); Puncture Site Left Radial
[2025-08-24 01:15] LABS: Alanine Aminotransferase 85 U/L (10-49); Albumin, Serum 4.3 gm/dL (3.5-5.0); Albumin/Globulin Ratio 1.9 (1.2-2.2); Alcohol, Blood Medical < 3.0 mg/dL (0-10.0); Alkaline Phosphatase 75 U/L (46-116); Anion Gap 10 (7-16); Aspartate Amino Transferase 35 U/L (0-34); BUN/Creatinine Ratio 8 Ratio (12-20); Bilirubin,Direct 0.2 mg/dL (0.0-0.3); Bilirubin,Total 0.4 mg/dL (0.3-1.2); Blood Urea Nitrogen 7 mg/dL (9-23); Calcium 8.9 mg/dL (8.3-10.6); Calcium (Corrected) 8.9 mg/dL (8.5-10.1); Carbon Dioxide 26.9 mMol/L (20.0-31.0); Chloride 105 mMol/L (98-107); Creatinine (Component) 0.9 mg/dL (0.6-1.3); Estimated Creatinine Clearance 148.3 mL/min (>60); Globulin 2.3 gm/dL (2.3-3.5); Glucose 79 mg/dL (74-106); Lipase 24 U/L (12-53); Magnesium 2.0 mg/dL (1.6-2.6); Osmolality,Calculated 280 (275-295); Potassium 3.8 mMol/L (3.4-5.1); Sodium 142 mMol/L (136-145); Thyroid Stimulating Hormone 1.35 uIU/mL (0.55-4.78); Total Protein 6.6 gm/dL (5.7-8.2); Troponin I < 0.002 ng/mL (0.0-0.045); eGFR > 60 See Note
[2025-08-24 01:54] LABS: Collection Type, Urine Clean Catch; Squamous Epithelial Cell,Urine 0 /hpf (0-5)
[2025-08-24 01:55] VITALS: PULSE 80; RESP 20; O2SAT 95
[2025-08-24 02:04] LABS: Bilirubin,Urine Negative (Negative); Blood,Urine Negative (Negative); Clarity,Urine Clear (Clear/Hazy); Color,Urine Lt-Yellow (Lt Yel-Yel); Culture Indicated,Urine Not Indicated; Glucose, Urine Negative (Negative); Ketones,Urine Negative (Negative); Leukocyte Esterase,Urine Negative (Negative); Nitrite,Urine Negative (Negative); PH,Urine 6.5 (5.0-7.0); Protein,Urine Negative (Neg - Trace); RBC,Urine < 1 /hpf (0-3); Specific Gravity,Urine 1.010 (1.001-1.035); Urobilinogen,Urine Negative mg/dL (0.0-1.0); WBC,Urine < 1 /hpf (0-5)
[2025-08-24 02:11] LABS: Amphetamine/Methamp Scrn,U Negative (Negative); Barbiturate Screen,Urine Negative (Negative); Benzodiazepines Screen,Urine Negative (Negative); Benzoylecgonine Screen, Ur Negative (Negative); Fentanyl Screen,Urine Negative (Negative); Opiate Screen,Urine Negative (Negative); THC Screen,Urine Negative (Negative)
--- NOTE | 2025-08-24 02:55 | PRELIM_ITS ---
PRELIM ADDENDUM In the Impression: Possible urinary bladder wall thickening, which may represent chronic outlet obstruction or cystitis. The gallbladder is unremarkable. Report Electronically Signed By: Felipe Mosley 08/24/2025 8:35:50 AM [EST] ORIGINAL PRELIM REPORT: CT scan of the chest, abdomen and pelvis without intravenous contrast (axial sections with sagittal and coronal reformats). August 24, 2025 at 0126 hours Clinical History: Shortness of breath, abdominal pain Comparison: No prior study is available for comparison. Findings: Cardiac size is normal. No pericardial effusion, pleural effusion or pneumothorax. Mild atelectasis in the bilateral lung bases. The chest wall is unremarkable. Liver is enlarged, 24.3 cm long. Spleen is enlarged, 13.4 cm long. Pancreas, gallbladder, adrenal glands and kidneys are unremarkable. The flo endix is normal, best seen on image 285. The urinary bladder is decompressed, limiting evaluation. Possible urinary bladder wall thickening. No free intraperitoneal air or fluid. Bowel caliber is normal. No urinary tract stone or obstruction is identified. No acute osseous process. Impression: 1. Hepatosplenomegaly. 2. No acute process of the chest abdomen or pelvis. 3. Possible gallbladder wall thickening, which may represent chronic outlet obstruction or cystitis. Report Electronically Signed By: Eugene Sams 08/24/2025 2:54:44 AM [EST]
[2025-08-24 03:12] LABS: Influenza A Ag Negative; Influenza B Ag Negative
[2025-08-24] MEDS: AZITHROMYCIN 250 MG TABLET 500 MG PO (03:13)
[2025-08-24 03:14] VITALS: BP 172/90; PULSE 91; RESP 20; TEMP 36.6; O2SAT 93
== END 2025-08-24 03:20 | disposition home or self-care (01) ==
PROVIDERS: Emergency Provider Emergency Medicine; PCP Physician Assistant
DX: J98.8 Other specified respiratory disorders (principal)
CPT/HCPCS: 36415; 36600; 71045; 71250; 74176; 80053; 80307; 80320; 81001; 82248; 82803; 83690; 83735; 83880; 84443; 84484; 85025; 85379; 87502; 87811; 93005; 94640; 99284; A9270; J2919; G0480

== ENCOUNTER 2025-08-25 17:37 | Emergency (ER) | payer MEDICAID, SELFPAY ==
[2025-08-25 17:41] VITALS: PULSE 88; RESP 20; O2SAT 95
[2025-08-25 18:04] VITALS: BP 142/85; PULSE 89; RESP 18; TEMP 37.2; O2SAT 95; BMI 50.1
--- NOTE | 2025-08-25 18:36 | EKG_ITS ---
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
--- NOTE | 2025-08-25 18:36 | XR_ITS ---
EXAMINATION: PA chest single view TECHNIQUE: Upright PA chest single view Date and time: August 25, 2025, 1921 hours, comparison June 24, 2025 INDICATION: Shortness of breath today. FINDINGS: Mild heart failure Mild to moderate enlargement cardiac contour. Prominent vascular congestion with 30 edema at the lung bases Intact osseous structures IMPRESSION: Early heart failure
[2025-08-25 19:05] LABS: Basophils # (Auto) 0.1 Thou/mm3 (0.0-0.2); Basophils % (Auto) 1 % (0-2.5); Eosinophils # (Auto) 0.3 Thou/mm3 (0.0-0.5); Eosinophils % (Auto) 3 % (0-10); Hematocrit 43.9 % (41.0-53.0); Hemoglobin 14.4 g/dL (13.5-16.0); Immature Granulocytes Auto 0.05 Thou/mm3 (0.00-0.00); Lymphocytes # (Auto) 2.3 Thou/mm3 (1.0-4.8); Lymphocytes % (Auto) 20 % (10-50); Mean Corpuscular HGB Conc 32.8 g/dl (31.0-37.0); Mean Corpuscular Hemoglobin 28.7 pg (25.0-35.0); Mean Corpuscular Volume 88 fL (80-100); Monocytes # (Auto) 0.7 Thou/mm3 (0.0-0.8); Monocytes % (Auto) 6 % (0-12); Neutrophils # (Auto) 8.0 Thou/mm3 (1.8-7.7); Neutrophils % (Auto) 70 % (37-80); Nucleated Red Blood Cell # 0.00 Thou/mm3 (0.00-0.00); Nucleated Red Blood Cell % 0 /100 WBC (0); Platelet Count 223 Thou/mm3 (140-440); RDW Standard Deviation 53.5 fL (35.1-43.9); Red Blood Count 5.01 Miln/mm3 (4.50-5.90); White Blood Count 11.4 Thou/mm3 (3.8-10.6)
[2025-08-25 19:20] LABS: D-Dimer < 250 ng/mL (<600)
[2025-08-25 19:21] LABS: B-Type Natriuretic Peptide < 20 pg/mL (0-100)
[2025-08-25 19:22] LABS: Alanine Aminotransferase 89 U/L (10-49); Albumin, Serum 4.5 gm/dL (3.5-5.0); Albumin/Globulin Ratio 1.7 (1.2-2.2); Alkaline Phosphatase 89 U/L (46-116); Anion Gap 10 (7-16); Aspartate Amino Transferase 40 U/L (0-34); BUN/Creatinine Ratio 16 Ratio (12-20); Bilirubin,Total 0.3 mg/dL (0.3-1.2); Blood Urea Nitrogen 16 mg/dL (9-23); Calcium 9.5 mg/dL (8.3-10.6); Calcium (Corrected) 9.5 mg/dL (8.5-10.1); Carbon Dioxide 28.3 mMol/L (20.0-31.0); Chloride 105 mMol/L (98-107); Creatinine (Component) 1.0 mg/dL (0.6-1.3); Estimated Creatinine Clearance 130.3 mL/min (>60); Globulin 2.6 gm/dL (2.3-3.5); Glucose 98 mg/dL (74-106); Osmolality,Calculated 286 (275-295); Potassium 3.8 mMol/L (3.4-5.1); Sodium 143 mMol/L (136-145); Total Protein 7.1 gm/dL (5.7-8.2); Troponin I < 0.002 ng/mL (0.0-0.045); eGFR > 60 See Note
[2025-08-25 20:18] LABS: Collection Type, Urine Clean Catch; Squamous Epithelial Cell,Urine 0 /hpf (0-5)
[2025-08-25 20:24] LABS: Bilirubin,Urine Negative (Negative); Blood,Urine Negative (Negative); Clarity,Urine Clear (Clear/Hazy); Color,Urine Colorless (Lt Yel-Yel); Glucose, Urine Negative (Negative); Ketones,Urine Negative (Negative); Leukocyte Esterase,Urine Positive (Negative); Nitrite,Urine Negative (Negative); PH,Urine 6.0 (5.0-7.0); Protein,Urine Negative (Neg - Trace); RBC,Urine 1 /hpf (0-3); Specific Gravity,Urine 1.011 (1.001-1.035); Urobilinogen,Urine Negative mg/dL (0.0-1.0); WBC,Urine 7 /hpf (0-5)
--- NOTE | 2025-08-25 22:23 | EDNOTE_ITS ---
ED SOB =RME/HPI General Chief Complaint: Shortness of Breath/Dyspnea Stated Complaint: SOB Time Seen by Provider: 08/25/25 18:30 Source: patient Arrival date/time: 08/25/25 17:37 Limitations: no limitations RME / HPI RME / HPI Narrative: Dr. Batista?s Main ED Evaluation: 44yo male with a history of CHF on 4L/NC, HTN, HLD, DM, prior methamphetamine and tobacco use presents to the ED for a chief complaint of worsening shortness of breath. Patient was seen here yesterday for the same complaint. Patient denies any fever, chills, chest pain, or any other associated symptoms. 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 Patient notes he has an appointment with a inbound customer service agent at this time. NKA. Related Data Home Medications ?Medication ?Instructions ?Recorded ?Confirmed carvedilol 6.25 mg tablet 6.25 mg PO BID 02/15/2407/09 gemfibrozil 600 mg tablet 600 mg PO BID 02/15/2407/30 loratadine 10 mg tablet 10 mg PO QDAY 02/15/2407/30 cholecalciferol (vitamin D3) 50 50 mcg PO DAILY 07/30/25 mcg (2,000 unit) capsule fluticasone propionate 44 44 mcg inhalation PRN PRN so b 12/03/24 07/30/25 mcg/actuation HFA aerosol inhaler metformin 500 mg tablet 500 mg PO BID 12/03/2407/30 azelastine 137 mcg (0.1 %) nasal 2 spray intranasal Q1 2H 07/20/25 07/30/25 spray benzonatate 200 mg capsule 200 mg PO TID 07/20/2507/09 benztropine 1 mg tablet 1 mg PO BID 07/20/25 5 cetirizine 10 mg tablet 10 mg PO QDAY 07/20/2507/30 haloperidol 10 mg tablet 10 mg PO BID 07/20/25 lisinopril 10 mg tablet 10 mg PO QDAY 07/20/2507/30 Previous Rx's ?Medication ?Instructions ?Recorded blood-glucose sensor (FreeStyle #1 ea 10/30/24 Caroline 3 Sensor device) furosemide 20 mg tablet (Lasix) 20 mg PO QAM #30 tabs 03/10/25 atorvastatin 20 mg tablet 20 mg PO HS 30 days #0 tabs 05/31/25 albuterol sulfate 90 mcg/actuation 2 puff inhalation Q 6H PRN 08/24/25 aerosol inhaler shortness of breath or wheez ing #8.5 grams alprazolam 0.5 mg tablet (Xanax) 0.5 mg PO BID PRN anx iety #10 tabs 08/24/25 Allergies Allergy/AdvReac Type Severity Reaction Status Date / Time No Known Allergies Allergy Verified 08/23/25 23:53 Review of Systems Review of Systems Systems Reviewed: All systems reviewed, normal except as documented Past Medical History Past Medical History NEUROLOGIC: Negative Neurological Disorders or Seizures CARDIAC: Positive Hypercholesterolemia, Congestive Heart Failure and Hypertension; Negative Cardiac Disorders RESPIRATORY: Positive Chronic Obstructive Pulmonary Disease (COPD), Asthma, Pneumonia and Sleep Apnea GASTROINTESTINAL: Negative Gastrointestinal Disorders GENITOURINARY: Negative Genitourinary Disorders or Renal Disease MUSCULOSKELETAL: Negative Musculoskeletal Disorders ENDOCRINE: Positive Endocrine Disorders and Diabetes Mellitus Type 2; Negative Diabetes Mellitus Type 1 HEMATOLOGIC: Negative Blood Disorders or Sickle Cell Disease PSYCHO/SOCIAL: Positive Schizophrenia and Recreational Drug Use OTHER HISTORY: Positive Chicken Pox; Negative Blood Transfusions, Blood Transfusion Reaction, Anesthesia Reactions or Cancer Family History FAMILY HISTORY: Negative Family Cardiac Disorders Social History SMOKING STATUS: Never smoker SECOND HAND EXPOSURE: No ED Exam General Limitations: Present no limitations General appearance: Present alert, in no apparent distress and other (chronically-ill appearing) Head Head exam: Present atraumatic Eye Eye exam: Present normal appearance, PERRL and EOMI ENT ENT exam: Present normal exam, normal oropharynx and mucous membranes moist Neck Neck exam: Present normal inspection, full ROM and trachea midline Chest Chest inspection: Present normal inspection and symmetric chest wall rise Respiratory Respiratory exam: Present normal lung sounds bilaterally; Absent respiratory dis tress or accessory muscle use Cardiovascular Cardiovascular exam: Present regular rate, normal rhythm and normal heart sounds Abdominal Exam Abdominal exam: Present soft Extremities Exam Extremities exam: Present full ROM and other (mild BLE swelling) Back Exam Back exam: Present normal inspection and full ROM Neurological Exam Neurological exam: Present alert, oriented X3 and CN II-XII intact Psychiatric Psychiatric exam: Present normal affect and normal mood Skin Skin exam: Present warm, dry, intact and normal color Course Course Course Narrative: CXR is ordered for determining the etiology of shortness of breath. Quality Measures none Orders Category Date Time Status EKG (ED ONLY) *Do not use* NOW Care 08/25/25 18:36 Completed EKG (ED Only) Stat Exams 08/25/25 18:36 Draft XR chest 1V Stat Exams 08/25/25 18:36 Completed BNP [B-Type Natriuretic Peptide] Stat Lab 08/25/25 18:42 Completed CBC Stat Lab 08/25/25 18:42 Completed Comprehensive Metabolic Panel Stat Lab 08/25/25 18:42 Completed D-Dimer Stat Lab 08/25/25 18:42 Completed Troponin I Stat Lab 08/25/25 18:42 Completed Urinalysis Stat Lab 08/25/25 20:07 Completed Furosemide [Lasix Inj] Med 08/25/25 22:35 Discontinued 20 mg IM X1 ONE Vital Signs Vital signs: Vital Signs Temperature 99.0 F 08/25/25 18:04 Pulse Rate 89 08/25/25 18:04 Respiratory Rate 18 08/25/25 18:04 Blood Pressure 142/85 H 08/25/25 18:04 Pulse Oximetry (%) 95 08/25/25 18:04 Oxygen Delivery Method Room Air 08/25/25 18:04 Shortness of Breath / Dyspnea MDM Narrative MDM Narrative:: Patient is a 44-year-old male that is in Emergency Department concerns for short ness of breath. Vital signs and exam as listed. Patient was evaluated by prior provider. Ordered labs EKG and chest x-ray. Labs without any acute significant hematologic abnormality, dimer is not elevated, no acute metabolic disturbance patient does have a transaminitis however this is at his baseline. Troponins not elevated, BNP not elevated. Urinalysis leukoesterase positive, 1 RBC, 7 white blood cells no squames no bacteria less likely urinary tract infection. Chest x-ray with evidence of early heart failure. EKG performed today at 1840, notable for sinus rhythm, normal intervals, nonspecific T wave changes, not a cardiac alert. Dimer not elevated. CXR with findins of early CHF. Patient breathing room air, nad. will dc to e close return preicaations adn follow up with pcp Patient data External records reviewed:: [facility] previous records Clinical information provided by:: patient Social determinants that could affect healthcare access:: substance use (history of methamphetamine and tobacco use) Patient has the following chronic illnesses:: CHF, HTN, HLD, DM How is presenting disease/condition affected by chronic disease/condition?: exacerbated by Evaluation data The following diagnostics were reviewed and interpreted by me:: lab results, radiology exam(s) and EKG tracing(s) Lab and/or radiology exams considered but not ordered:: none Interpretation Summary: [place] [facility] Report Signed Patient: CIERRA ROBERTS [facility]. Record#: [id number] Birthdate: 1980 Age/Sex: 44 / M Location: [facility] Attending Dr: Ordering Physician: Goran Martin Date of Service: 08/25/25 Procedure(s): XR chest 1V Accession Number(s): [id number] cc: Gordon De La Cruz MD; Goran Martin~ EXAMINATION: PA chest single view TECHNIQUE: Upright PA chest single view Date and time: August 25, 2025, 1921 hours, comparison June 24, 2025 INDICATION: Shortness of breath today. FINDINGS: Mild heart failure Mild to moderate enlargement cardiac contour. Prominent vascular congestion with 30 edema at the lung bases Intact osseous structures IMPRESSION: Early heart failure Dictated By: Gordon De La Cruz MD Signed By: <Electronically signed by Gordon De La Cruz MD in OV> 08/25/251943 Medications / Prescriptions Medications or Prescriptions considered but not ordered:: none Medication administrations:: Medication Administration History Discontinued Medications Furosemide (Furosemide Inj 10 Mg/Ml Vial 2 Ml) 20 mg IM X1 ONE Stop: 08/25/25 22:36 Last Admin: 08/25/25 22:56 Dose: 20 mg Documented By: BD see above, if any Consultations Consultation(s) initiated? (list below): No Diagnosis Shortness of Breath Differential Diagnosis: acute exacerbation of chronic obstructive airways disease, congestive heart failure, community acquired pneumonia and asthma with exacerbation Most likely diagnosis given after review of the tests above:: see clinical impression below Admission Indicated Admission indicated?: not indicated Admission Request Was there a request for admission?: No Disposition Plan Disposition Plan: Discharge Discharge Attestation Discharge Attestation: The patient and all family members were given an opportunity to ask questions and understood the discharge instructions. Discharge instructions specifically effects, indications for sooner follow up or return to the emergency department, and the expected course of current diagnosis. Patient condition: Stable Discharge Plan Plan Patient Disposition: HOME (Self Care) Prescriptions/Referrals Prescriptions/Med Rec: No Action metformin 500 mg tablet 500 mg PO BID Patient Comments: TAKE 1 TABLET BY MOUTH TWICE A DAY WITH FOOD fluticasone propionate 44 mcg/actuation HFA aerosol inhaler 44 mcg INHALATION PRN PRN (Reason: sob) cholecalciferol (vitamin D3) 50 mcg (2,000 unit) capsule 50 mcg PO DAILY Patient Comments: TAKE 1 TABLET ORALLY EVERY DAY carvedilol 6.25 mg tablet 6.25 mg PO BID gemfibrozil 600 mg tablet 600 mg PO BID Patient Comments: TAKE 1 TABLET BY MOUTH TWICE A DAY 30 MINUTES BEFORE MORNING AND EVENING MEAL loratadine 10 mg tablet 10 mg PO QDAY Patient Comments: TAKE 1 TABLET BY MOUTH EVERY DAY (DME) [employer] Caroline 3 Sensor Device See Rx Instructions .Route Qty: 1 0RF Rx Instructions: As directed furosemide [Lasix] 20 mg tablet 20 mg PO QAM Qty: 30 0RF atorvastatin 20 mg tablet 20 mg PO HS 30 Days Qty: 0 0RF Patient Comments: TAKE 1 TABLET BY MOUTH EVERY DAY cetirizine 10 mg tablet 10 mg PO QDAY Patient Comments: TAKE 1 TABLET BY MOUTH EVERY DAY lisinopril 10 mg tablet 10 mg PO QDAY Patient Comments: TAKE 1 TABLET BY MOUTH EVERY DAY benztropine 1 mg tablet 1 mg PO BID Patient Comments: TAKE 1 TABLET BY MOUTH TWICE A DAY azelastine 137 mcg (0.1 %) spray,non-aerosol 2 spray INTRANASAL Q12H benzonatate 200 mg capsule 200 mg PO TID Patient Comments: TAKE 1 CAPSULE BY MOUTH THREE TIMES A DAY NEEDED FOR COUGH haloperidol 10 mg tablet 10 mg PO BID Patient Comments: TAKE 1 TABLET BY MOUTH TWICE A DAY alprazolam [Xanax] 0.5 mg tablet 0.5 mg PO BID PRN (Reason: anxiety) Qty: 10 0RF albuterol sulfate 90 mcg/actuation HFA aerosol inhaler 2 puff inhalation Q6H PRN (Reason: shortness of breath or wheezing) Qty: 8.5 0RF Referrals: No Primary/Family,Physician [Primary Care Provider] - In 1 week Problem List Clinical Impression: CHF exacerbation, Breath shortness Patient/Caregiver Discharge Instructions Education Materials: Coping with Heart Failure Additional Instructions: Please take your medications as prescribed. Please call your inbound customer service agent and request a sooner appointment. Please follow up with your land conservation specialist to further discuss your heart failure management Print Language: Sinhala Stand Alone Forms: Domitila Award Info., Patient Portal Info Letter
[2025-08-25 22:56] VITALS: BP 126/81; PULSE 85
[2025-08-25] MEDS: FUROSEMIDE INJ 10 MG/ML VIAL 2 ML 20 MG IM (22:56)
[2025-08-25 23:01] VITALS: BP 126/81; PULSE 88; RESP 18; TEMP 37; O2SAT 94
== END 2025-08-25 23:04 | disposition home or self-care (01) ==
PROVIDERS: Nurse Practitioner Family; Emergency Provider Emergency Medicine
DX: R06.02 Shortness of breath (principal); E11.9 Type 2 diabetes mellitus without complications; E78.5 Hyperlipidemia, unspecified; I11.0 Hypertensive heart disease with heart failure; Z79.84 Long term (current) use of oral hypoglycemic drugs
CPT/HCPCS: 36415; 71045; 80053; 81001; 83880; 84484; 85025; 85379; 93005; 96372; 99283; J1938

== ENCOUNTER 2025-09-10 15:10 | Emergency (ER) | payer MEDICAID, SELFPAY ==
[2025-09-10 15:17] VITALS: O2SAT 98; BMI 50.8
[2025-09-10 15:27] VITALS: BP 132/81; PULSE 98; RESP 24; TEMP 36.6; O2SAT 91
--- NOTE | 2025-09-10 15:27 | EKG_ITS ---
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
--- NOTE | 2025-09-10 15:33 | EDNOTE_ITS ---
<Statement entered by Stacy Daugherty MD - 09/11/25 09:34> As co-signing physician, I was present and available for consult prn. I concur with the plan and care as documented by the midlevel provider. ED General RME/HPI General Chief complaint: Shortness of Breath/Dyspnea Stated complaint: SHORTNESSS OF BREATH Time Seen by Provider: 09/10/25 15:28 Arrival date/time: 09/10/25 15:10 CC: Shortness of breath HPI onset this morning, EMS reports stable vital signs patient was 92% on 4 L nasal cannula which the patient wears during the day and CPAP at night. Patient denies chest pain fever or difficulty breathing. Patient is very anxious. Denies all other complaints. Patient was given 2 breathing treatments and route with no significant change. Related Data Home Medications ?Medication ?Instructions ?Recorded ?Confirmed carvedilol 6.25 mg tablet 6.25 mg PO BID 02/15/2407/09 gemfibrozil 600 mg tablet 600 mg PO BID 02/15/2407/30 loratadine 10 mg tablet 10 mg PO QDAY 02/15/2407/30 cholecalciferol (vitamin D3) 50 50 mcg PO DAILY 07/30/25 mcg (2,000 unit) capsule fluticasone propionate 44 44 mcg inhalation PRN PRN so b 12/03/24 07/30/25 mcg/actuation HFA aerosol inhaler metformin 500 mg tablet 500 mg PO BID 12/03/2407/30 azelastine 137 mcg (0.1 %) nasal 2 spray intranasal Q1 2H 07/20/25 07/30/25 spray benzonatate 200 mg capsule 200 mg PO TID 07/20/2507/09 benztropine 1 mg tablet 1 mg PO BID 07/20/25 5 cetirizine 10 mg tablet 10 mg PO QDAY 07/20/2507/30 haloperidol 10 mg tablet 10 mg PO BID 07/20/25 lisinopril 10 mg tablet 10 mg PO QDAY 07/20/2507/30 Previous Rx's ?Medication ?Instructions ?Recorded blood-glucose sensor (FreeStyle #1 ea 10/30/24 Caroline 3 Sensor device) furosemide 20 mg tablet (Lasix) 20 mg PO QAM #30 tabs 03/10/25 atorvastatin 20 mg tablet 20 mg PO HS 30 days #0 tabs 05/31/25 albuterol sulfate 90 mcg/actuation 2 puff inhalation Q 6H PRN 08/24/25 aerosol inhaler shortness of breath or wheez ing #8.5 grams alprazolam 0.5 mg tablet (Xanax) 0.5 mg PO BID PRN anx iety #10 tabs 08/24/25 Allergies Allergy/AdvReac Type Severity Reaction Status Date / Time No Known Allergies Allergy Verified 09/10/25 15:26 Review of Systems Review of Systems Narrative Review of Systems: GEN: No fever, no chills, no weight loss EYES: No discharge, no visual changes, no pain HEENT: No ear pain, no congestion, no sore throat PULM: + shortness of breath, no cough, no congestion CV: No chest pain, no dyspnea on exertion, no palpitations GI: No nausea, no vomiting, no diarrhea, no pain, no constipation : No frequency, no urgency, no dysuria MUSC/SKEL: No joint pain, no back pain SKIN: No rash PSYCH: No hallucinations, no depression HEME/LYMPH: No easy bleeding or bruising tendencies NEURO: No weakness, no headache Past Medical History Past Medical History NEUROLOGIC: Negative Neurological Disorders or Seizures CARDIAC: Positive Hypercholesterolemia, Congestive Heart Failure and Hypertension; Negative Cardiac Disorders RESPIRATORY: Positive Chronic Obstructive Pulmonary Disease (COPD), Asthma, Pneumonia and Sleep Apnea GASTROINTESTINAL: Negative Gastrointestinal Disorders GENITOURINARY: Negative Genitourinary Disorders or Renal Disease MUSCULOSKELETAL: Negative Musculoskeletal Disorders ENDOCRINE: Positive Endocrine Disorders and Diabetes Mellitus Type 2; Negative Diabetes Mellitus Type 1 HEMATOLOGIC: Negative Blood Disorders or Sickle Cell Disease PSYCHO/SOCIAL: Positive Schizophrenia and Recreational Drug Use OTHER HISTORY: Positive Chicken Pox; Negative Blood Transfusions, Blood Transfusion Reaction, Anesthesia Reactions or Cancer Family History FAMILY HISTORY: Negative Family Cardiac Disorders Social History SMOKING STATUS: Never smoker SECOND HAND EXPOSURE: No ED Exam Narrative Physical exam: [General: Morbidly obese anxious but not in any acute distress Head normocephalic HEENT: Within acceptable limits Neck is supple nontender Chest equal chest rise nontender to palpation Respiratory: Clear to auscultation no wheezes crackles or rubs, tachypneic CV: Rate rhythm is regular no murmurs rubs or clicks Abdomen is grossly distended secondary to body habitus soft nontender no masses positive bowel sounds all 4 quadrants Back: No CVA tenderness no spinous process tenderness from cervical spine thoracic and lumbar spine Skin: Intact no petechiae rash induration ulceration or crepitus Extremities: Moving all extremity against resistance cap refill less than 2 seconds neurosensory intact Neuro: Awake alert oriented x3 Glascow coma 15 no focal deficits] Course Course Course Narrative: Given that the patient has improved lung bradley I have low index suspicion there is a worsening of acute respiratory failure and/or pneumonia. Upon reassessment. The patient's heart rate is under 100, oxygen saturations are 94% on 2 L nasal cannula. Respiratory rate is 20. At this time and comfortable discharging the patient home is where is no acute finding requires emergent or immediate intervention. Patient is agreement with this plan. Quality Measures none Orders Category Date Time Status EKG (ED ONLY) *Do not use* NOW Care 09/10/25 15:27 Completed EKG (ED Only) Stat Exams 09/10/25 15:27 Draft XR chest 1V Stat Exams 09/10/25 15:34 Completed B-Type Natriuretic Peptide Stat Lab 09/10/25 15:25 Completed CBC Stat Lab 09/10/25 15:25 Completed Comprehensive Metabolic Panel Stat Lab 09/10/25 15:25 Completed Drug Screen,Urine Stat Lab 09/10/25 16:16 Completed LDH (Lactate Dehydrogenase) Stat Lab 09/10/25 15:25 Completed Magnesium Stat Lab 09/10/25 15:25 Completed Partial Thromboplastin Time Stat Lab 09/10/25 15:25 Completed Prothrombin Time with INR Stat Lab 09/10/25 15:25 Completed Troponin I Stat Lab 09/10/25 15:25 Completed Urinalysis, C/S if Indicated Stat Lab 09/10/25 16:16 Completed Vital Signs Vital signs: Vital Signs Temperature 97.9 F 09/10/25 15:27 Pulse Rate 98 09/10/25 15:27 Respiratory Rate 24 H 09/10/25 15:27 Blood Pressure 132/81 H 09/10/25 15:27 Pulse Oximetry (%) 91 L 09/10/25 15:27 Oxygen Delivery Method Nasal Cannula 09/10/25 15:27 Oxygen Flow Rate 4 11/04/25 15:27 Discharge Plan Plan Patient Disposition: HOME (Self Care) Patient condition on transfer: Stable Prescriptions/Referrals Prescriptions/Med Rec: No Action metformin 500 mg tablet 500 mg PO BID Patient Comments: TAKE 1 TABLET BY MOUTH TWICE A DAY WITH FOOD fluticasone propionate 44 mcg/actuation HFA aerosol inhaler 44 mcg INHALATION PRN PRN (Reason: sob) cholecalciferol (vitamin D3) 50 mcg (2,000 unit) capsule 50 mcg PO DAILY Patient Comments: TAKE 1 TABLET ORALLY EVERY DAY carvedilol 6.25 mg tablet 6.25 mg PO BID gemfibrozil 600 mg tablet 600 mg PO BID Patient Comments: TAKE 1 TABLET BY MOUTH TWICE A DAY 30 MINUTES BEFORE MORNING AND EVENING MEAL loratadine 10 mg tablet 10 mg PO QDAY Patient Comments: TAKE 1 TABLET BY MOUTH EVERY DAY (DME) PA Semi Caroline 3 Sensor Device See Rx Instructions .Route Qty: 1 0RF Rx Instructions: As directed furosemide [Lasix] 20 mg tablet 20 mg PO QAM Qty: 30 0RF atorvastatin 20 mg tablet 20 mg PO HS 30 Days Qty: 0 0RF Patient Comments: TAKE 1 TABLET BY MOUTH EVERY DAY cetirizine 10 mg tablet 10 mg PO QDAY Patient Comments: TAKE 1 TABLET BY MOUTH EVERY DAY lisinopril 10 mg tablet 10 mg PO QDAY Patient Comments: TAKE 1 TABLET BY MOUTH EVERY DAY benztropine 1 mg tablet 1 mg PO BID Patient Comments: TAKE 1 TABLET BY MOUTH TWICE A DAY azelastine 137 mcg (0.1 %) spray,non-aerosol 2 spray INTRANASAL Q12H benzonatate 200 mg capsule 200 mg PO TID Patient Comments: TAKE 1 CAPSULE BY MOUTH THREE TIMES A DAY NEEDED FOR COUGH haloperidol 10 mg tablet 10 mg PO BID Patient Comments: TAKE 1 TABLET BY MOUTH TWICE A DAY alprazolam [Xanax] 0.5 mg tablet 0.5 mg PO BID PRN (Reason: anxiety) Qty: 10 0RF albuterol sulfate 90 mcg/actuation HFA aerosol inhaler 2 puff inhalation Q6H PRN (Reason: shortness of breath or wheezing) Qty: 8.5 0RF Referrals: Rod Hernandez PA-C [Primary Care Provider] - In 1 week Problem List Clinical Impression: Shortness of breath Patient/Caregiver Discharge Instructions Education Materials: ED Shortness of Breath (Dyspnea) Additional Instructions: Rest, use your oxygen during the day and your CPAP at nighttime follow-up with your primary care doctor if there is worsening symptoms return the emergency room meetly for further evaluation. Print Language: Hebrew Stand Alone Forms: [employer] Award Info., Patient Portal Info Letter JENNIFER/SHIRA Supervising Physician SHANON Supervising Physician: Dallin Lin ENP [facility] Clinical Information Provided by: patient and EMS Medical Records reviewed [facility] and EMS Meds/Rx considered, not ordered None Labs/Rad/Tests considered, not ordered None Chronic Illness/Social Conditions Explain: Morbid obesity respiratory failure EKG Interpretation EKG #1: EKG Interpretation: EKG performed at 1530 shows a ventricular rate of 96 FL interval 174 QRS of 82 QTc of 382 sinus rhythm. Labs Labs: interpreted by me Lab(s) Interpretation(s): CBC shows no acute leukocytosis anemia thrombocytopenia CMP shows no significant electrolyte imbalances other than blood glucose of 181 no renal impairment. ALT is 59 no other transaminitis or T. bili elevation. LDH of 283. Troponin is undetectable BMP within acceptable limits Urine is negative UDS is negative. Imaging Imaging interpretation: interpreted by me Imaging Interpretation(s): Chest x-ray shows improved atelectasis versus pneumonia. Medication Administration(s) none
--- NOTE | 2025-09-10 15:34 | XR_ITS ---
CLINICAL INDICATION: SOB Exam time: 09/10/2025, 3:36 p.m. TECHNIQUE: XR chest 1V COMPARISON: 08/25/2025 FINDINGS: The cardiomediastinal silhouette remains enlarged, with mild pulmonary vascular congestion. Redemonstration of hypoventilation as well as nonspecific bibasilar opacities, left side greater than right, most mildly improved in the interim. No evidence for moderate or large pleural effusions. No pneumothorax. IMPRESSION: Redemonstration of enlarged cardiomediastinal silhouette and mild pulmonary vascular congestion. Bibasilar opacities could be due to atelectases in addition to pneumonia and/or pulmonary edema, appearing mildly improved in the interim. - This report was generated utilizing speech recognition software. -
[2025-09-10 16:19] LABS: Basophils # (Auto) 0.0 Thou/mm3 (0.0-0.2); Basophils % (Auto) 0 % (0-2.5); Eosinophils # (Auto) 0.0 Thou/mm3 (0.0-0.5); Eosinophils % (Auto) 0 % (0-10); Hematocrit 45.8 % (41.0-53.0); Hemoglobin 15.1 g/dL (13.5-16.0); Immature Granulocytes Auto 0.07 Thou/mm3 (0.00-0.00); Lymphocytes # (Auto) 1.2 Thou/mm3 (1.0-4.8); Lymphocytes % (Auto) 13 % (10-50); Mean Corpuscular HGB Conc 33.0 g/dl (31.0-37.0); Mean Corpuscular Hemoglobin 28.5 pg (25.0-35.0); Mean Corpuscular Volume 87 fL (80-100); Monocytes # (Auto) 0.1 Thou/mm3 (0.0-0.8); Monocytes % (Auto) 1 % (0-12); Neutrophils # (Auto) 7.6 Thou/mm3 (1.8-7.7); Neutrophils % (Auto) 85 % (37-80); Nucleated Red Blood Cell # 0.00 Thou/mm3 (0.00-0.00); Nucleated Red Blood Cell % 0 /100 WBC (0); Platelet Count 214 Thou/mm3 (140-440); RDW Standard Deviation 50.2 fL (35.1-43.9); Red Blood Count 5.29 Miln/mm3 (4.50-5.90); White Blood Count 8.9 Thou/mm3 (3.8-10.6)
[2025-09-10 16:21] LABS: Collection Type, Urine Clean Catch; Squamous Epithelial Cell,Urine 0 /hpf (0-5)
[2025-09-10 16:31] LABS: Amphetamine/Methamp Scrn,U Negative (Negative); Barbiturate Screen,Urine Negative (Negative); Benzodiazepines Screen,Urine Negative (Negative); Benzoylecgonine Screen, Ur Negative (Negative); Fentanyl Screen,Urine Negative (Negative); Opiate Screen,Urine Negative (Negative); THC Screen,Urine Negative (Negative)
[2025-09-10 16:34] LABS: Amorphous Crystals,Urine Present (Absent); Bacteria,Urine Rare; Bilirubin,Urine Negative (Negative); Blood,Urine Negative (Negative); Color,Urine Lt-Yellow (Lt Yel-Yel); Culture Indicated,Urine Not Indicated; Glucose, Urine Negative (Negative); Ketones,Urine Negative (Negative); Leukocyte Esterase,Urine Negative (Negative); Nitrite,Urine Negative (Negative); PH,Urine 7.5 (5.0-7.0); Protein,Urine Negative (Neg - Trace); RBC,Urine 1 /hpf (0-3); Specific Gravity,Urine 1.011 (1.001-1.035); Urobilinogen,Urine Negative mg/dL (0.0-1.0); WBC,Urine 2 /hpf (0-5)
[2025-09-10 16:35] LABS: Clarity,Urine Hazy (Clear/Hazy)
[2025-09-10 16:36] LABS: INR 1.0 (0.9-1.3); Partial Thromboplastin Time 30.2 Seconds (22.0-36.0); Prothrombin Time 10.9 Seconds (9.0-12.2)
[2025-09-10 16:44] LABS: Alanine Aminotransferase 59 U/L (10-49); Albumin, Serum 5.0 gm/dL (3.5-5.0); Albumin/Globulin Ratio 2.1 (1.2-2.2); Alkaline Phosphatase 84 U/L (46-116); Anion Gap 11 (7-16); Aspartate Amino Transferase 27 U/L (0-34); BUN/Creatinine Ratio 11 Ratio (12-20); Bilirubin,Total 0.4 mg/dL (0.3-1.2); Blood Urea Nitrogen 11 mg/dL (9-23); Calcium 9.6 mg/dL (8.3-10.6); Calcium (Corrected) 9.6 mg/dL (8.5-10.1); Carbon Dioxide 26.5 mMol/L (20.0-31.0); Chloride 104 mMol/L (98-107); Creatinine (Component) 1.0 mg/dL (0.6-1.3); Estimated Creatinine Clearance 131.5 mL/min (>60); Globulin 2.4 gm/dL (2.3-3.5); Glucose 181 mg/dL (74-106); LDH (Lactate Dehydrogenase) 283 U/L (120-246); Magnesium 2.1 mg/dL (1.6-2.6); Osmolality,Calculated 285 (275-295); Potassium 4.2 mMol/L (3.4-5.1); Sodium 141 mMol/L (136-145); Total Protein 7.4 gm/dL (5.7-8.2); Troponin I < 0.002 ng/mL (0.0-0.045); eGFR > 60 See Note
[2025-09-10 16:54] LABS: B-Type Natriuretic Peptide < 20 pg/mL (0-100)
[2025-09-10 18:45] VITALS: BP 136/77; PULSE 93; RESP 16; TEMP 36.7; O2SAT 95
== END 2025-09-10 19:12 | disposition home or self-care (01) ==
PROVIDERS: Registered Nurse General Practice; Emergency Provider Emergency Medicine; PCP Physician Assistant
DX: J96.90 Respiratory failure, unspecified, unspecified whether with hypoxia or hypercapnia (principal)
CPT/HCPCS: 36415; 71045; 80053; 80307; 81001; 83615; 83735; 83880; 84484; 85025; 85610; 85730; 93005; 99283

== ENCOUNTER 2025-09-17 18:30 | Emergency (ER) | payer MEDICAID, SELFPAY ==
[2025-09-17 18:32] VITALS: BP 144/82; PULSE 83; PULSE 88; RESP 17; RESP 18; TEMP 36.4; O2SAT 93; O2SAT 96; BMI 51.2
[2025-09-17 18:33] VITALS: PULSE 81; RESP 15; RESP 93; O2SAT 95
--- NOTE | 2025-09-17 18:38 | PD.EDADULT ---
ED General RME/HPI General Chief complaint: Shortness of Breath/Dyspnea Stated complaint: SOB Time Seen by Provider: 09/17/25 18:31 Arrival date/time: 09/17/25 18:30 CC: Shortness of breath, epigastric pain HPI onset this morning, after eating to [place] epigastric pain occurred. Patient denies fever chills or chest pain. Patient is morbidly obese seen here multiple times for same shortness of breath. In the past has been suspected the patient is anxious and has no acute respiratory pathology. Currently oxygen saturation is 94% on 2 L nasal cannula patient states he is on 4 L at home. Patient is awake alert oriented appears not in any acute distress. Related Data Home Medications ?Medication ?Instructions ?Recorded ?Confirmed carvedilol 6.25 mg tablet 6.25 mg PO BID 02/15/24 07/30/25 gemfibrozil 600 mg tablet 600 mg PO BID 02/15/24 07/30/25 loratadine 10 mg tablet 10 mg PO QDAY 02/15/24 07/30/25 cholecalciferol (vitamin D3) 50 50 mcg PO DAILY 12/03/24 07/30/25 mcg (2,000 unit) capsule fluticasone propionate 44 44 mcg inhalation PRN PRN sob 12/03/24 07/30/25 mcg/actuation HFA aerosol inhaler metformin 500 mg tablet 500 mg PO BID 12/03/24 07/30/25 azelastine 137 mcg (0.1 %) nasal 2 spray intranasal Q12H 07/20/25 07/30/25 spray benzonatate 200 mg capsule 200 mg PO TID 07/20/25 07/30/25 benztropine 1 mg tablet 1 mg PO BID 07/20/25 07/30/25 cetirizine 10 mg tablet 10 mg PO QDAY 07/20/25 07/30/25 haloperidol 10 mg tablet 10 mg PO BID 07/20/25 07/30/25 lisinopril 10 mg tablet 10 mg PO QDAY 07/20/25 07/30/25 Previous Rx's ?Medication ?Instructions ?Recorded blood-glucose sensor (FreeStyle #1 ea 10/30/24 Caroline 3 Sensor device) furosemide 20 mg tablet (Lasix) 20 mg PO QAM #30 tabs 03/10/25 atorvastatin 20 mg tablet 20 mg PO HS 30 days #0 tabs 05/31/25 albuterol sulfate 90 mcg/actuation 2 puff inhalation Q6H PRN 08/24/25 aerosol inhaler shortness of breath or wheezing #8.5 grams alprazolam 0.5 mg tablet (Xanax) 0.5 mg PO BID PRN anxiety #10 tabs 08/24/25 Allergies Allergy/AdvReac Type Severity Reaction Status Date / Time No Known Allergies Allergy Verified 09/17/25 18:32 Review of Systems Review of Systems Narrative Review of Systems: GEN: No fever, no chills, no weight loss EYES: No discharge, no visual changes, no pain HEENT: No ear pain, no congestion, no sore throat PULM: + shortness of breath, no cough, no congestion CV: No chest pain, no dyspnea on exertion, no palpitations GI: No nausea, no vomiting, no diarrhea, no pain, no constipation : No frequency, no urgency, no dysuria MUSC/SKEL: No joint pain, no back pain SKIN: No rash PSYCH: No hallucinations, no depression HEME/LYMPH: No easy bleeding or bruising tendencies NEURO: No weakness, no headache Past Medical History Past Medical History NEUROLOGIC: Negative Neurological Disorders or Seizures CARDIAC: Positive Hypercholesterolemia, Congestive Heart Failure and Hypertension; Negative Cardiac Disorders RESPIRATORY: Positive Chronic Obstructive Pulmonary Disease (COPD), Asthma, Pneumonia and Sleep Apnea GASTROINTESTINAL: Negative Gastrointestinal Disorders GENITOURINARY: Negative Genitourinary Disorders or Renal Disease MUSCULOSKELETAL: Negative Musculoskeletal Disorders ENDOCRINE: Positive Endocrine Disorders and Diabetes Mellitus Type 2; Negative Diabetes Mellitus Type 1 HEMATOLOGIC: Negative Blood Disorders or Sickle Cell Disease PSYCHO/SOCIAL: Positive Schizophrenia and Recreational Drug Use OTHER HISTORY: Positive Chicken Pox; Negative Blood Transfusions, Blood Transfusion Reaction, Anesthesia Reactions or Cancer Family History FAMILY HISTORY: Negative Family Cardiac Disorders Social History SMOKING STATUS: Never smoker SECOND HAND EXPOSURE: No ED Exam Narrative Physical exam: [General: Morbidly obese not in any acute distress Head normocephalic HEENT: Within acceptable limits Neck is supple nontender Chest equal chest rise nontender to palpation Respiratory: Clear to auscultation no wheezes crackles or rubs CV: Rate rhythm is regular no murmurs rubs or clicks Abdomen is grossly distended secondary to body habitus soft nontender no masses positive bowel sounds all 4 quadrants Back: No CVA tenderness no spinous process tenderness from cervical spine thoracic and lumbar spine Skin: Intact no petechiae rash induration ulceration or crepitus Extremities: Moving all extremity against resistance cap refill less than 2 seconds neurosensory intact Neuro: Awake alert oriented x3 Glascow coma 15 no focal deficits] Course Course Course Narrative: Patient's epigastric pain is completely resolved with GI cocktail. Patient be discharged home with epigastric pain and shortness of breath. Quality Measures none Orders Category Date Time Status XR chest 1V Stat Exams 09/17/25 18:41 Completed CBC Stat Lab 09/17/25 18:40 Completed CMP [Comprehensive Metabolic Panel] Stat Lab 09/17/25 18:40 Completed Lipase Stat Lab 09/17/25 18:40 Completed Albuterol/Ipratr Rt Katarina [Duoneb Rt Katarina] Med 09/17/25 18:38 Discontinued 3 ml INH X1 ONE Lidocaine 2% Viscous [Xylocaine 2% Viscous] Med 09/17/25 18:38 Discontinued 15 ml PO X1 ONE mg Hyd/Al Hyd/Danay Susp [Maalox Susp] Med 09/17/25 18:38 Discontinued 30 ml PO X1 ONE Vital Signs Vital signs: Vital Signs Temperature 97.6 F 09/17/25 18:32 Pulse Rate 83 09/17/25 18:32 Respiratory Rate 17 09/17/25 18:32 Blood Pressure 144/82 H 09/17/25 18:32 Pulse Oximetry (%) 93 L 09/17/25 18:32 Oxygen Delivery Method Room Air 09/17/25 18:32 Discharge Plan Plan Patient Disposition: HOME (Self Care) Patient condition on transfer: Stable Prescriptions/Referrals Prescriptions/Med Rec: No Action metformin 500 mg tablet 500 mg PO BID Patient Comments: TAKE 1 TABLET BY MOUTH TWICE A DAY WITH FOOD fluticasone propionate 44 mcg/actuation HFA aerosol inhaler 44 mcg INHALATION PRN PRN (Reason: sob) cholecalciferol (vitamin D3) 50 mcg (2,000 unit) capsule 50 mcg PO DAILY Patient Comments: TAKE 1 TABLET ORALLY EVERY DAY carvedilol 6.25 mg tablet 6.25 mg PO BID gemfibrozil 600 mg tablet 600 mg PO BID Patient Comments: TAKE 1 TABLET BY MOUTH TWICE A DAY 30 MINUTES BEFORE MORNING AND EVENING MEAL loratadine 10 mg tablet 10 mg PO QDAY Patient Comments: TAKE 1 TABLET BY MOUTH EVERY DAY (DME) FreeStyle Caroline 3 Sensor Device See Rx Instructions .Route Qty: 1 0RF Rx Instructions: As directed furosemide [Lasix] 20 mg tablet 20 mg PO QAM Qty: 30 0RF atorvastatin 20 mg tablet 20 mg PO HS 30 Days Qty: 0 0RF Patient Comments: TAKE 1 TABLET BY MOUTH EVERY DAY cetirizine 10 mg tablet 10 mg PO QDAY Patient Comments: TAKE 1 TABLET BY MOUTH EVERY DAY lisinopril 10 mg tablet 10 mg PO QDAY Patient Comments: TAKE 1 TABLET BY MOUTH EVERY DAY benztropine 1 mg tablet 1 mg PO BID Patient Comments: TAKE 1 TABLET BY MOUTH TWICE A DAY azelastine 137 mcg (0.1 %) spray,non-aerosol 2 spray INTRANASAL Q12H benzonatate 200 mg capsule 200 mg PO TID Patient Comments: TAKE 1 CAPSULE BY MOUTH THREE TIMES A DAY NEEDED FOR COUGH haloperidol 10 mg tablet 10 mg PO BID Patient Comments: TAKE 1 TABLET BY MOUTH TWICE A DAY alprazolam [Xanax] 0.5 mg tablet 0.5 mg PO BID PRN (Reason: anxiety) Qty: 10 0RF albuterol sulfate 90 mcg/actuation HFA aerosol inhaler 2 puff inhalation Q6H PRN (Reason: shortness of breath or wheezing) Qty: 8.5 0RF Referrals: Rod Hernandez PA-C [Primary Care Provider] - In 1 week Problem List Clinical Impression: Epigastric pain, Shortness of breath, Anxiety Patient/Caregiver Discharge Instructions Education Materials: ED Anxiety Reaction, ED Epigastric Pain (Uncertain Cause) Additional Instructions: Avoid eating large portions of greasy spicy or fatty foods. Take all your medicines as prescribed. If there is worsening of symptoms follow-up with your primary care doctor or return the emergency room for reevaluation. Print Language: Kinyarwanda Stand Alone Forms: [employer] Award Info., Work/School Release, Patient Portal Info Letter JENNIFER/SHIRA Supervising Physician SHANON Supervising Physician: Dallin Lin ENP [facility] Clinical Information Provided by: patient and EMS [facility] Meds/Rx considered, not ordered None Labs/Rad/Tests considered, not ordered None Chronic Illness/Social Conditions Explain: Morbid obesity hyperlipidemia hypertension diabetes EKG EKG not done Labs Labs: interpreted by me Lab(s) Interpretation(s): CBC shows no leukocytosis anemia thrombocytopenia CMP shows no significant electrolyte imbalances renal impairment transaminitis or T. bili elevation Lipase is 23 Imaging Imaging interpretation: interpreted by me Imaging Interpretation(s): Chest x-ray shows poor inspiratory effort and cardiomegaly and no acute infiltrate. Although there is a question of whether there is a left base pneumonia upon review of the chest x-rays over the past 5 visits show there is been repeated left lower lobe pneumonia and/or atelectasis. The patient has clear lungs, no new desaturations on his baseline oxygen of 2 L nasal cannula he satting 94%. No productive cough. Have a low index suspicion the patient actually has pneumonia. Medication Administration(s) Medication Administration History Discontinued Medications Al Hydrox/Mg Hydrox/Simethicone (Mg Hyd/Al Hyd/Danay (Maalox Reg) Susp 30 Ml Udc) 30 ml PO X1 ONE Stop: 09/17/25 18:39 Last Admin: 09/17/25 18:50 Dose: 30 ml Documented By: Albuterol/Ipratropium (Albuterol/Ipratropium (Duoneb) Rt Katarina 3 Ml Nebu) 3 ml INH X1 ONE Stop: 09/17/25 18:39 Last Admin: 09/17/25 19:00 Dose: 3 ml Documented By: Lidocaine HCl (Lidocaine Viscous 2% 15 Ml Udc) 15 ml PO X1 ONE Stop: 09/17/25 18:39 Last Admin: 09/17/25 18:50 Dose: 15 ml Documented By:
--- NOTE | 2025-09-17 18:41 | XR_ITS ---
EXAMINATION: AP chest single view TECHNIQUE: AP portable upright chest single view Date and time: September 17, 2025, 1901 hours, comparison September 10, 2025 INDICATION: Shortness of breath today FINDINGS: Mild to moderate enlargement cardiac contour Poor definition left hemidiaphragm Mild prominence pulmonary vasculature Moderate osteopenia IMPRESSION: Suspicious for pneumonia left base
[2025-09-17] MEDS: LIDOCAINE VISCOUS 2% 15 ML UDC PO (18:50)
[2025-09-17] MEDS: MG HYD/AL HYD/SIME (Maalox Reg) SUSP 30 ML UDC PO (18:50)
[2025-09-17] MEDS: ALBUTEROL/IPRATROPIUM (Duoneb) RT SOL 3 ML NEBU INH (19:00)
[2025-09-17 19:02] VITALS: PULSE 75; RESP 17; O2SAT 97
[2025-09-17 19:13] LABS: Basophils # (Auto) 0.1 Thou/mm3 (0.0-0.2); Basophils % (Auto) 1 % (0-2.5); Eosinophils # (Auto) 0.3 Thou/mm3 (0.0-0.5); Eosinophils % (Auto) 3 % (0-10); Hematocrit 44.7 % (41.0-53.0); Hemoglobin 14.9 g/dL (13.5-16.0); Immature Granulocytes Auto 0.04 Thou/mm3 (0.00-0.00); Lymphocytes # (Auto) 1.7 Thou/mm3 (1.0-4.8); Lymphocytes % (Auto) 15 % (10-50); Mean Corpuscular HGB Conc 33.3 g/dl (31.0-37.0); Mean Corpuscular Hemoglobin 28.7 pg (25.0-35.0); Mean Corpuscular Volume 86 fL (80-100); Monocytes # (Auto) 0.6 Thou/mm3 (0.0-0.8); Monocytes % (Auto) 5 % (0-12); Neutrophils # (Auto) 8.3 Thou/mm3 (1.8-7.7); Neutrophils % (Auto) 76 % (37-80); Nucleated Red Blood Cell # 0.00 Thou/mm3 (0.00-0.00); Nucleated Red Blood Cell % 0 /100 WBC (0); Platelet Count 209 Thou/mm3 (140-440); RDW Standard Deviation 49.9 fL (35.1-43.9); Red Blood Count 5.19 Miln/mm3 (4.50-5.90); White Blood Count 11.0 Thou/mm3 (3.8-10.6)
[2025-09-17 19:45] LABS: Alanine Aminotransferase 38 U/L (10-49); Albumin, Serum 4.8 gm/dL (3.5-5.0); Albumin/Globulin Ratio 1.8 (1.2-2.2); Alkaline Phosphatase 84 U/L (46-116); Anion Gap 11 (7-16); Aspartate Amino Transferase 22 U/L (0-34); BUN/Creatinine Ratio 12 Ratio (12-20); Bilirubin,Total 0.5 mg/dL (0.3-1.2); Blood Urea Nitrogen 11 mg/dL (9-23); Calcium 9.6 mg/dL (8.3-10.6); Calcium (Corrected) 9.6 mg/dL (8.5-10.1); Carbon Dioxide 26.8 mMol/L (20.0-31.0); Chloride 102 mMol/L (98-107); Creatinine (Component) 0.9 mg/dL (0.6-1.3); Estimated Creatinine Clearance 145.3 mL/min (>60); Globulin 2.7 gm/dL (2.3-3.5); Glucose 84 mg/dL (74-106); Lipase 23 U/L (12-53); Osmolality,Calculated 277 (275-295); Potassium 3.8 mMol/L (3.4-5.1); Sodium 140 mMol/L (136-145); Total Protein 7.5 gm/dL (5.7-8.2); eGFR > 60 See Note
[2025-09-17 20:01] VITALS: BP 148/85; PULSE 85; RESP 14; TEMP 37; O2SAT 94
--- NOTE | 2025-09-17 20:14 | PC.NURSE ---
THIS RN CONTACTED SISTER RICKY AT [phone] TO [employer]. PER SISTER OKAY I WILL BE THERE TO PICK HIM UP.
== END 2025-09-17 20:15 | disposition home or self-care (01) ==
PROVIDERS: Registered Nurse General Practice; Emergency Provider Emergency Medicine; PCP Physician Assistant
DX: R06.02 Shortness of breath (principal); F41.9 Anxiety disorder, unspecified; R10.13 Epigastric pain; E66.01 Morbid (severe) obesity due to excess calories; Z68.43 Body mass index [BMI] 50.0-59.9, adult
CPT/HCPCS: 36415; 71045; 80053; 83690; 85025; 94640; 99283; A9270; J3490

== ENCOUNTER 2025-10-09 19:09 | Emergency (ER) | payer MEDICAID, SELFPAY ==
[2025-10-09 19:15] VITALS: BP 141/76; PULSE 76; RESP 20; TEMP 36.7; O2SAT 93
[2025-10-09 19:16] VITALS: BMI 50.4
--- NOTE | 2025-10-09 20:41 | EKG_ITS ---
[facility] Test Date: 2025-10-09 Pat Name: CIERRA ROBERTS Department: Room: - Gender: Male [employer] Operator: : 1980 Requested By: Andrew Landis Order Number: [id number] Reading MD: Andrew Landis Measurements Intervals [place] Rate: 71 P: 12 VA: 190 QRS: 92 QRSD: 80 T: 53 QT: 365 QTc: 398 Interpretive Statements SINUS RHYTHM BORDERLINE RIGHT AXIS DEVIATION [QRS AXIS > 90] LOW QRS VOLTAGE IN PRECORDIAL LEADS [QRS DEFLECTION < 1.0 mV IN CHEST LEADS] Compared to ECG 09/10/2025 15:30:19 No significant changes /[id number]/S0/[id number].pdf
--- NOTE | 2025-10-09 20:41 | XR_ITS ---
EXAMINATION: PA lateral chest 2 views TECHNIQUE: Upright PA lateral chest 2 views Date and time: October 09, 2025, 2047 hours, comparison September 17, 2025 INDICATIONS: Shortness of breath today. FINDINGS: Opacity both bases consistent with mild pneumonia Mild prominence cardiac contour Mild vascular congestion IMPRESSION: Suspicious for mild bibasilar pneumonia
--- NOTE | 2025-10-09 20:45 | PD.EDRME ---
Rapid Medical Screening Exam RME Arrival date/time: 10/09/25 19:09 45-year-old male with a history of CHF and diabetes obesity and noncompliance reports with complaints of shortness of breath and chest pain Chief Complaint: Abdominal Pain Time Seen by Provider: 10/09/25 19:34 Vital signs: Vital Signs Temperature 98.1 F 10/09/25 19:15 Pulse Rate 76 10/09/25 19:15 Respiratory Rate 20 10/09/25 19:15 Blood Pressure 141/76 H 10/09/25 19:15 Pulse Oximetry (%) 93 L 10/09/25 19:15 Oxygen Delivery Method Room Air 10/09/25 19:15 Exam: - Clinical Impression: -
[2025-10-09 21:31] LABS: Basophils # (Auto) 0.1 Thou/mm3 (0.0-0.2); Basophils % (Auto) 1 % (0-2.5); Eosinophils # (Auto) 0.4 Thou/mm3 (0.0-0.5); Eosinophils % (Auto) 4 % (0-10); Hematocrit 45.6 % (41.0-53.0); Hemoglobin 15.0 g/dL (13.5-16.0); Immature Granulocytes Auto 0.05 Thou/mm3 (0.00-0.00); Lymphocytes # (Auto) 2.4 Thou/mm3 (1.0-4.8); Lymphocytes % (Auto) 23 % (10-50); Mean Corpuscular HGB Conc 32.9 g/dl (31.0-37.0); Mean Corpuscular Hemoglobin 28.8 pg (25.0-35.0); Mean Corpuscular Volume 88 fL (80-100); Monocytes # (Auto) 0.7 Thou/mm3 (0.0-0.8); Monocytes % (Auto) 7 % (0-12); Neutrophils # (Auto) 6.8 Thou/mm3 (1.8-7.7); Neutrophils % (Auto) 65 % (37-80); Nucleated Red Blood Cell # 0.00 Thou/mm3 (0.00-0.00); Nucleated Red Blood Cell % 0 /100 WBC (0); Platelet Count 237 Thou/mm3 (140-440); RDW Standard Deviation 48.9 fL (35.1-43.9); Red Blood Count 5.21 Miln/mm3 (4.50-5.90); White Blood Count 10.5 Thou/mm3 (3.8-10.6)
[2025-10-09 21:41] LABS: B-Type Natriuretic Peptide < 20 pg/mL (0-100)
[2025-10-09 21:43] LABS: Alanine Aminotransferase 46 U/L (10-49); Albumin, Serum 5.1 gm/dL (3.5-5.0); Albumin/Globulin Ratio 1.7 (1.2-2.2); Alkaline Phosphatase 97 U/L (46-116); Anion Gap 8 (7-16); Aspartate Amino Transferase 19 U/L (0-34); BUN/Creatinine Ratio 13 Ratio (12-20); Bilirubin,Total 0.3 mg/dL (0.3-1.2); Blood Urea Nitrogen 13 mg/dL (9-23); Calcium 9.7 mg/dL (8.3-10.6); Calcium (Corrected) 9.7 mg/dL (8.5-10.1); Carbon Dioxide 30.8 mMol/L (20.0-31.0); Chloride 104 mMol/L (98-107); Creatinine (Component) 1.0 mg/dL (0.6-1.3); Estimated Creatinine Clearance 129.4 mL/min (>60); Globulin 3.0 gm/dL (2.3-3.5); Glucose 91 mg/dL (74-106); Osmolality,Calculated 285 (275-295); Potassium 4.0 mMol/L (3.4-5.1); Sodium 143 mMol/L (136-145); Total Protein 8.1 gm/dL (5.7-8.2); Troponin I < 0.002 ng/mL (0.0-0.045); eGFR > 60 See Note
--- NOTE | 2025-10-09 22:51 | PD.EDADULT ---
ED General RME/HPI General Chief complaint: Abdominal Pain Stated complaint: ABDOMINAL PAIN Time Seen by Provider: 10/09/25 19:34 Source: patient Arrival date/time: 10/09/25 19:09 Mode of arrival: ambulatory Limitations: no limitations RME / HPI RME / HPI narrative: 45-year-old male with a history of CHF and diabetes obesity and noncompliance reports with complaints of shortness of breath and chest pain, that started when he yawned really deeply. The patient states that the pain with yawning is no longer present. There is no radiation and otherwise he thought that treatment would make it better but again he continued to yawn deeply. Patient denies any lower extremity swelling. He has no difficulty lying flat and otherwise has no chest pain here in the emergency department. No nausea vomiting or diarrhea. No sweating. Exam: - Impression: - Related Data Home Medications ?Medication ?Instructions ?Recorded ?Confirmed carvedilol 6.25 mg tablet 6.25 mg PO BID 02/15/24 07/30/25 gemfibrozil 600 mg tablet 600 mg PO BID 02/15/24 07/30/25 loratadine 10 mg tablet 10 mg PO QDAY 02/15/24 07/30/25 cholecalciferol (vitamin D3) 50 50 mcg PO DAILY 12/03/24 07/30/25 mcg (2,000 unit) capsule fluticasone propionate 44 44 mcg inhalation PRN PRN sob 12/03/24 07/30/25 mcg/actuation HFA aerosol inhaler metformin 500 mg tablet 500 mg PO BID 12/03/24 07/30/25 azelastine 137 mcg (0.1 %) nasal 2 spray intranasal Q12H 07/20/25 07/30/25 spray benzonatate 200 mg capsule 200 mg PO TID 07/20/25 07/30/25 benztropine 1 mg tablet 1 mg PO BID 07/20/25 07/30/25 cetirizine 10 mg tablet 10 mg PO QDAY 07/20/25 07/30/25 haloperidol 10 mg tablet 10 mg PO BID 07/20/25 07/30/25 lisinopril 10 mg tablet 10 mg PO QDAY 07/20/25 07/30/25 Previous Rx's ?Medication ?Instructions ?Recorded blood-glucose sensor (FreeStyle #1 ea 10/30/24 Caroline 3 Sensor device) furosemide 20 mg tablet (Lasix) 20 mg PO QAM #30 tabs 03/10/25 atorvastatin 20 mg tablet 20 mg PO HS 30 days #0 tabs 05/31/25 albuterol sulfate 90 mcg/actuation 2 puff inhalation Q6H PRN 08/24/25 aerosol inhaler shortness of breath or wheezing #8.5 grams alprazolam 0.5 mg tablet (Xanax) 0.5 mg PO BID PRN anxiety #10 tabs 08/24/25 amoxicillin 875 mg-potassium 1 tab PO BID #14 tabs 10/09/25 clavulanate 125 mg tablet doxycycline hyclate 100 mg capsule 100 mg PO BID #10 caps 10/09/25 Allergies Allergy/AdvReac Type Severity Reaction Status Date / Time No Known Allergies Allergy Verified 09/17/25 18:32 Review of Systems Review of Systems Systems Reviewed: All systems reviewed, normal except as documented Constitutional Constitutional: Reports system reviewed and no additional complaints, except as documented and Denies fever(s) Eyes Eyes: Reports system reviewed and no additional complaints, except as documented ENT Ears, Nose, Mouth, and Throat: Reports system reviewed and no additional complaints, except as documented Cardiovascular Cardiovascular: Reports system reviewed and no additional complaints, except as documented Respiratory Respiratory: Reports system reviewed and no additional complaints, except as documented Gastrointestinal Gastrointestinal: Reports system reviewed and no additional complaints, except as documented, Denies abdominal pain, Denies nausea and Denies vomiting Genitourinary Genitourinary: Reports system reviewed and no additional complaints, except as documented and Denies dysuria Musculoskeletal Musculoskeletal: Reports system reviewed and no additional complaints, except as documented, Denies abnormal gait and Denies arthralgias Integumentary/Breasts Skin/Breast: Reports system reviewed and no additional complaints, except as documented and Denies rash Neurologic Neurologic: Reports system reviewed and no additional complaints, except as documented and Denies abnormal gait Past Medical History Past Medical History NEUROLOGIC: Negative Neurological Disorders or Seizures CARDIAC: Positive Hypercholesterolemia, Congestive Heart Failure and Hypertension; Negative Cardiac Disorders RESPIRATORY: Positive Chronic Obstructive Pulmonary Disease (COPD), Asthma, Pneumonia and Sleep Apnea GASTROINTESTINAL: Negative Gastrointestinal Disorders GENITOURINARY: Negative Genitourinary Disorders or Renal Disease MUSCULOSKELETAL: Negative Musculoskeletal Disorders ENDOCRINE: Positive Endocrine Disorders and Diabetes Mellitus Type 2; Negative Diabetes Mellitus Type 1 HEMATOLOGIC: Negative Blood Disorders or Sickle Cell Disease PSYCHO/SOCIAL: Positive Schizophrenia and Recreational Drug Use OTHER HISTORY: Positive Chicken Pox; Negative Blood Transfusions, Blood Transfusion Reaction, Anesthesia Reactions or Cancer Family History FAMILY HISTORY: Negative Family Cardiac Disorders Social History SMOKING STATUS: Never smoker SECOND HAND EXPOSURE: No ED Exam General Limitations: Present no limitations Head Head exam: Present atraumatic Eye Eye exam: Present normal appearance, PERRL and EOMI ENT ENT exam: Present normal exam, normal oropharynx and mucous membranes moist Neck Neck exam: Present normal inspection, full ROM and trachea midline Chest Chest inspection: Present normal inspection and symmetric chest wall rise Respiratory Respiratory exam: Present normal lung sounds bilaterally; Absent respiratory distress, wheezes, stridor or accessory muscle use Cardiovascular Cardiovascular exam: Present regular rate, normal rhythm and normal heart sounds Abdominal Exam Abdominal exam: Present soft; Absent distention, tenderness, guarding, rebound or rigidity Extremities Exam Extremities exam: Present normal inspection and full ROM; Absent pedal edema Back Exam Back exam: Present normal inspection and full ROM Neurological Exam Neurological exam: Present alert, oriented X3 and CN II-XII intact Psychiatric Psychiatric exam: Present normal affect and normal mood Skin Skin exam: Present warm, dry, intact and normal color Course Quality Measures none Orders Category Date Time Status EKG (ED ONLY) *Do not use* NOW Care 10/09/25 20:42 Completed EKG (ED Only) Stat Exams 10/09/25 20:41 Draft XR chest 2V Stat Exams 10/09/25 20:41 Completed BNP [B-Type Natriuretic Peptide] Stat Lab 10/09/25 21:03 Completed CBC Stat Lab 10/09/25 21:03 Completed CMP [Comprehensive Metabolic Panel] Stat Lab 10/09/25 21:03 Completed Troponin I Stat Lab 10/09/25 21:03 Completed Amoxicillin/Pot Clav 875 [Augmentin 875] Med 10/09/25 23:18 Discontinued 1 tab PO X1 ONE Doxycycline [Vibramycin] Med 10/09/25 23:18 Discontinued 100 mg PO X1 ONE Vital Signs Vital signs: Vital Signs Temperature 98.1 F 10/09/25 19:15 Pulse Rate 76 10/09/25 19:15 Respiratory Rate 20 10/09/25 19:15 Blood Pressure 141/76 H 10/09/25 19:15 Pulse Oximetry (%) 93 L 10/09/25 19:15 Oxygen Delivery Method Room Air 10/09/25 19:15 Discharge Plan Plan Patient Disposition: HOME (Self Care) Patient condition on transfer: Stable Prescriptions/Referrals Prescriptions/Med Rec: New amoxicillin-pot clavulanate 875-125 mg tablet 1 tab PO BID Qty: 14 0RF doxycycline hyclate 100 mg capsule 100 mg PO BID Qty: 10 0RF No Action metformin 500 mg tablet 500 mg PO BID Patient Comments: TAKE 1 TABLET BY MOUTH TWICE A DAY WITH FOOD fluticasone propionate 44 mcg/actuation HFA aerosol inhaler 44 mcg INHALATION PRN PRN (Reason: sob) cholecalciferol (vitamin D3) 50 mcg (2,000 unit) capsule 50 mcg PO DAILY Patient Comments: TAKE 1 TABLET ORALLY EVERY DAY carvedilol 6.25 mg tablet 6.25 mg PO BID gemfibrozil 600 mg tablet 600 mg PO BID Patient Comments: TAKE 1 TABLET BY MOUTH TWICE A DAY 30 MINUTES BEFORE MORNING AND EVENING MEAL loratadine 10 mg tablet 10 mg PO QDAY Patient Comments: TAKE 1 TABLET BY MOUTH EVERY DAY (DME) [employer] 3 Sensor Device See Rx Instructions .Route Qty: 1 0RF Rx Instructions: As directed furosemide [Lasix] 20 mg tablet 20 mg PO QAM Qty: 30 0RF atorvastatin 20 mg tablet 20 mg PO HS 30 Days Qty: 0 0RF Patient Comments: TAKE 1 TABLET BY MOUTH EVERY DAY cetirizine 10 mg tablet 10 mg PO QDAY Patient Comments: TAKE 1 TABLET BY MOUTH EVERY DAY lisinopril 10 mg tablet 10 mg PO QDAY Patient Comments: TAKE 1 TABLET BY MOUTH EVERY DAY benztropine 1 mg tablet 1 mg PO BID Patient Comments: TAKE 1 TABLET BY MOUTH TWICE A DAY azelastine 137 mcg (0.1 %) spray,non-aerosol 2 spray INTRANASAL Q12H benzonatate 200 mg capsule 200 mg PO TID Patient Comments: TAKE 1 CAPSULE BY MOUTH THREE TIMES A DAY NEEDED FOR COUGH haloperidol 10 mg tablet 10 mg PO BID Patient Comments: TAKE 1 TABLET BY MOUTH TWICE A DAY alprazolam [Xanax] 0.5 mg tablet 0.5 mg PO BID PRN (Reason: anxiety) Qty: 10 0RF albuterol sulfate 90 mcg/actuation HFA aerosol inhaler 2 puff inhalation Q6H PRN (Reason: shortness of breath or wheezing) Qty: 8.5 0RF Referrals: Rod Hernandez PA-C [Primary Care Provider] - In 1 week Problem List Clinical Impression: Community acquired pneumonia Patient/Caregiver Discharge Instructions Education Materials: ED Pneumonia (Adult) Additional Instructions: Today you have a very early pneumonia and we can treat you as an outpatient. Please take to the antibiotics as prescribed. Please follow-up with your primary care in the next 48 to 72 hours as needed. Return for worsening symptoms, you have or shortness of breath, or any other fever, or any other concerns Print Language: Slovak Stand Alone Forms: [employer] Info., Patient Portal Info Letter MDM Narrative MDM hospital course (for use when minimal MDM required): 45yo male with a history of CHF on 4L/NC, HTN, HLD, DM, prior methamphetamine and tobacco use who presents to the emergency department with chest pain. Differential diagnosis includes non-STEMI, pneumonia, CHF exacerbation. Labs reviewed interpreted by me. White count is 10, hemoglobin is 15/45. Platelets are 237. No anemia, thrombocytopenic pi?a, or leukocytosis. CMP is reviewed interpreted by me. No significant electrolyte abnormality, sodium and potassium normal. Normal LFTs. Troponin x 1 is normal. BNP x 1 is normal. EKG is reviewed. No ST elevation [place], no ischemia. The patient otherwise has a normal BNP. No pedal edema. At this time I do not believe that he has CHF. Patient is oxygenating on his normal amount of oxygen. He is not requiring a DuoNeb here. Risk benefits are discussed and the patient feels comfortable going home. Will treat with Augmentin and doxycycline. Return precautions are given and understood. Clinical Information Provided by: patient Medical Records reviewed [facility] (Patient seen in August 2025 for abdominal pain and discharged home.) Meds/Rx considered, not ordered None Labs/Rad/Tests considered, not ordered None Chronic Illness/Social Conditions Explain: history of CHF on 4L/NC, HTN, HLD, DM, prior methamphetamine and tobacco use Labs Labs: interpreted by me and see narrative above Lab(s) Interpretation(s): 2045. Normal sinus rhythm. Heart rate 71. W[place] interval 190. Low voltage. No ST elevations or depressions. Normal QTc. Impression no ST elevation [place]. This was reviewed interpreted by me. Imaging Imaging interpretation: interpreted by me and see narrative above Imaging Interpretation(s): Radiology interpretation chest x-ray. FINDINGS: Opacity both bases consistent with mild pneumonia Mild prominence cardiac contour Mild vascular congestion IMPRESSION: Suspicious for mild bibasilar pneumonia Medication Administration(s) Medication Administration History Discontinued Medications Amoxicillin/Clavulanate Potassium (Amoxicillin/Pot Clav 875 Tablet) 1 tab PO X1 ONE Stop: 10/09/25 23:19 Doxycycline Hyclate (Doxycycline 100 Mg Tablet) 100 mg PO X1 ONE Stop: 10/09/25 23:19 As above Diagnosis Differential Diagnosis ED Complaint MDM: See MDM Diagnoses ruled out and/or further discussions: Early community-acquired pneumonia, atypical chest pain
[2025-10-09 22:55] VITALS: BP 141/89; PULSE 76; RESP 19; TEMP 36.3; O2SAT 95
[2025-10-09] MEDS: AMOXICILLIN/POT CLAV 875 TABLET 1 TAB PO (23:27)
[2025-10-09] MEDS: DOXYCYCLINE 100 MG TABLET PO (23:27)
== END 2025-10-09 23:29 | disposition home or self-care (01) ==
PROVIDERS: Physician Assistant; Emergency Provider Emergency Medicine; PCP Physician Assistant
DX: J18.9 Pneumonia, unspecified organism (principal); R94.31 Abnormal electrocardiogram [ECG] [EKG]; I11.0 Hypertensive heart disease with heart failure; E78.00 Pure hypercholesterolemia, unspecified; R51.9 Headache, unspecified
CPT/HCPCS: 36415; 71046; 80053; 83880; 84484; 85025; 93005; 99283; A9270

== ENCOUNTER 2025-10-24 17:40 | Emergency (ER) | payer MEDICAID, SELFPAY ==
[2025-10-24 17:57] VITALS: PULSE 70; RESP 12; O2SAT 94; BMI 51.0
[2025-10-24 18:39] VITALS: BP 143/90; PULSE 76; RESP 18; TEMP 36.9; O2SAT 95
--- NOTE | 2025-10-24 18:57 | PD.EDRME ---
Rapid Medical Screening Exam FOR[facility] Arrival date/time: 10/24/25 17:40 45M with history of morbid obesity, schizophrenia, HTN and DM presents to ED with 1 day of epigastric pain and N/V. Patient denies diarrhea and N/V. Chief Complaint: Abdominal Pain Vital signs: Vital Signs Temperature 98.4 F 10/24/25 18:39 Pulse Rate 76 10/24/25 18:39 Respiratory Rate 18 10/24/25 18:39 Blood Pressure 143/90 H 10/24/25 18:39 Pulse Oximetry (%) 95 10/24/25 18:39 Oxygen Delivery Method Room Air 10/24/25 18:39 Exam: No ab tenderness. Clinical Impression: Gastritis vs ab pain vs biliary disease vs pancreatitis
[2025-10-24] MEDS: FAMOTIDINE 20 MG TABLET 40 MG PO (19:17)
[2025-10-24] MEDS: ONDANSETRON ODT 4 MG TABRAP PO (19:17)
[2025-10-24 19:29] LABS: Basophils # (Auto) 0.1 Thou/mm3 (0.0-0.2); Basophils % (Auto) 1 % (0-2.5); Eosinophils # (Auto) 0.2 Thou/mm3 (0.0-0.5); Eosinophils % (Auto) 3 % (0-10); Hematocrit 44.7 % (41.0-53.0); Hemoglobin 15.2 g/dL (13.5-16.0); Immature Granulocytes Auto 0.02 Thou/mm3 (0.00-0.00); Lymphocytes # (Auto) 2.1 Thou/mm3 (1.0-4.8); Lymphocytes % (Auto) 27 % (10-50); Mean Corpuscular HGB Conc 34.0 g/dl (31.0-37.0); Mean Corpuscular Hemoglobin 29.1 pg (25.0-35.0); Mean Corpuscular Volume 86 fL (80-100); Monocytes # (Auto) 0.5 Thou/mm3 (0.0-0.8); Monocytes % (Auto) 7 % (0-12); Neutrophils # (Auto) 4.8 Thou/mm3 (1.8-7.7); Neutrophils % (Auto) 63 % (37-80); Nucleated Red Blood Cell # 0.00 Thou/mm3 (0.00-0.00); Nucleated Red Blood Cell % 0 /100 WBC (0); Platelet Count 205 Thou/mm3 (140-440); RDW Standard Deviation 47.7 fL (35.1-43.9); Red Blood Count 5.23 Miln/mm3 (4.50-5.90); White Blood Count 7.7 Thou/mm3 (3.8-10.6)
[2025-10-24 19:43] LABS: Alanine Aminotransferase 117 U/L (10-49); Albumin, Serum 4.9 gm/dL (3.5-5.0); Albumin/Globulin Ratio 1.4 (1.2-2.2); Alkaline Phosphatase 79 U/L (46-116); Anion Gap 11 (7-16); Aspartate Amino Transferase 58 U/L (0-34); BUN/Creatinine Ratio 8 Ratio (12-20); Bilirubin,Total 0.5 mg/dL (0.3-1.2); Blood Urea Nitrogen 8 mg/dL (9-23); Calcium 10.3 mg/dL (8.3-10.6); Calcium (Corrected) 10.3 mg/dL (8.5-10.1); Carbon Dioxide 27.2 mMol/L (20.0-31.0); Chloride 103 mMol/L (98-107); Creatinine (Component) 1.0 mg/dL (0.6-1.3); Estimated Creatinine Clearance 130.4 mL/min (>60); Globulin 3.4 gm/dL (2.3-3.5); Glucose 84 mg/dL (74-106); Lipase 28 U/L (12-53); Osmolality,Calculated 278 (275-295); Potassium 4.0 mMol/L (3.4-5.1); Sodium 141 mMol/L (136-145); Total Protein 8.3 gm/dL (5.7-8.2); eGFR > 60 See Note
--- NOTE | 2025-10-24 21:11 | PC.NURSE ---
PATIENT STATED THAT HE WAS GOING TO LEAVE THAT HE ALREADY HAD A RIDE ON THE WAY. PATIENT LEFT AMA AT THIS TIME. RISK OF LEAVING AMA EXPLAINED TO PATIENT, PATIENT VERBALIZED UNDERSTANDING.PATIENT ENCOURAGED TO RETURN.
== END 2025-10-24 21:15 | disposition left against medical advice (07) ==
LOC: SERX 21:57
PROVIDERS: Physician Assistant; Emergency Provider Emergency Medicine
DX: R10.13 Epigastric pain (principal); R11.2 Nausea with vomiting, unspecified; Z53.29 Procedure and treatment not carried out because of patient's decision for other reasons
CPT/HCPCS: 36415; 80053; 81001; 83690; 85025; 99282; Q0162; A9270

== ENCOUNTER 2025-11-03 18:07 | Emergency (ER) | payer MEDICAID, SELFPAY ==
[2025-11-03 18:08] VITALS: BP 146/73; PULSE 78; RESP 16; RESP 19; TEMP 36.7; O2SAT 95; O2SAT 98
[2025-11-03 18:10] VITALS: BMI 50.1
--- NOTE | 2025-11-03 18:12 | XR_ITS ---
EXAMINATION: PA chest single view TECHNIQUE: Upright PA chest single view Date and time: November 03, 2025, 1820 hours, comparison October 09, 2025 INDICATION: Shortness of breath today. FINDINGS: Scarring at the left lung base Suspicious for mild heart failure Mild enlargement cardiac contour Vascular congestion and possible subtle edema at the lung bases Pleural thickening along the lateral and upper right hemithorax Intact osseous structures IMPRESSION: Suspicious for mild heart failure
--- NOTE | 2025-11-03 18:12 | EKG_ITS ---
[facility] Test Date: 2025-11-03 Pat Name: CIERRA ROBERTS Department: Room: - Gender: Male Record Systems Analyst: : 1980 Requested By: Rakesh Mc Order Number: [id number] Reading MD: Rakesh Mc Measurements Intervals [place] Rate: 81 P: 61 MI: 188 QRS: 24 QRSD: 78 T: 58 QT: 352 QTc: 410 Interpretive Statements SINUS RHYTHM LOW QRS VOLTAGE IN PRECORDIAL LEADS [QRS DEFLECTION < 1.0 mV IN CHEST LEADS] Compared to ECG 10/09/2025 20:46:43 No significant changes /store/S0/[id number].pdf
--- NOTE | 2025-11-03 18:13 | PD.EDSOB ---
ED SOB =RME/HPI General Chief Complaint: Shortness of Breath/Dyspnea Stated Complaint: SOB Time Seen by Provider: 11/03/25 18:10 Arrival date/time: 11/03/25 18:07 45-year-old male patient with significant history of obstructive sleep apnea, on home oxygen at home, came in with EMS for evaluation regarding shortness of breath. Patient called EMS today according to him because while lying in bed he developed shortness of breath. Per EMS patient was satting 94%. Patient denies any cough denies any chest pain denies any fever denies any other complaints. Related Data Home Medications ?Medication ?Instructions ?Recorded ?Confirmed carvedilol 6.25 mg tablet 6.25 mg PO BID 02/15/24 07/30/25 gemfibrozil 600 mg tablet 600 mg PO BID 02/15/24 07/30/25 loratadine 10 mg tablet 10 mg PO QDAY 02/15/24 07/30/25 cholecalciferol (vitamin D3) 50 50 mcg PO DAILY 12/03/24 07/30/25 mcg (2,000 unit) capsule fluticasone propionate 44 44 mcg inhalation PRN PRN sob 12/03/24 07/30/25 mcg/actuation HFA aerosol inhaler metformin 500 mg tablet 500 mg PO BID 12/03/24 07/30/25 azelastine 137 mcg (0.1 %) nasal 2 spray intranasal Q12H 07/20/25 07/30/25 spray benzonatate 200 mg capsule 200 mg PO TID 07/20/25 07/30/25 benztropine 1 mg tablet 1 mg PO BID 07/20/25 07/30/25 cetirizine 10 mg tablet 10 mg PO QDAY 07/20/25 07/30/25 haloperidol 10 mg tablet 10 mg PO BID 07/20/25 07/30/25 lisinopril 10 mg tablet 10 mg PO QDAY 07/20/25 07/30/25 Previous Rx's ?Medication ?Instructions ?Recorded blood-glucose sensor (FreeStyle #1 ea 10/30/24 Caroline 3 Sensor device) furosemide 20 mg tablet (Lasix) 20 mg PO QAM #30 tabs 03/10/25 atorvastatin 20 mg tablet 20 mg PO HS 30 days #0 tabs 05/31/25 albuterol sulfate 90 mcg/actuation 2 puff inhalation Q6H PRN 08/24/25 aerosol inhaler shortness of breath or wheezing #8.5 grams alprazolam 0.5 mg tablet (Xanax) 0.5 mg PO BID PRN anxiety #10 tabs 08/24/25 amoxicillin 875 mg-potassium 1 tab PO BID #14 tabs 10/09/25 clavulanate 125 mg tablet doxycycline hyclate 100 mg capsule 100 mg PO BID #10 caps 10/09/25 Allergies Allergy/AdvReac Type Severity Reaction Status Date / Time No Known Allergies Allergy Verified 11/03/25 18:10 Review of Systems Review of Systems Narrative Review of Systems: Review of system reviewed and within normal limits except mentioned in HPI ED Exam Narrative Physical exam: VITAL SIGNS: Reviewed. GENERAL APPEARANCE: Alert and interactive, follows commands, no acute distress, morbidly obese HEAD AND FACE: Non-traumatic. ENT: PERRL, pink conjunctivitis, eyelid no trauma, Mucous membrane moist. NECK: Supple, nontender, no nuchal rigidity. CHEST: No tenderness, no crepitus, no paradoxical movement, no retractions. LUNGS: Clear, well ventilated, symmetric, no rales, no wheezing, no ronchi, no stridor, good breath sounds bilaterally. HEART: Regular rate, regular rhythm, no murmur, no gallops. ABDOMEN: Soft, positive bowel sounds, nondistended, no guarding, nontender, no rebound, no masses, RECTAL: Deferred. GENITAL: Deferred. NEUROLOGICAL: Gross motor function intact sensory function intact, Appropriate for age. MUSCULOSKELETAL: low back nontender, full range of motion. EXTREMITIES: Nontender, full range of motion. SKIN: Color pink, dry, no rash, no lacerations, no abrasions, no contusions. LYMPHATICS: Deferred. Course Quality Measures none Orders Category Date Time Status EKG (ED ONLY) *Do not use* NOW Care 11/03/25 18:12 Completed EKG (ED Only) Stat Exams 11/03/25 18:12 Draft XR chest 1V Stat Exams 11/03/25 18:12 Completed B-Type Natriuretic Peptide Stat Lab 11/03/25 18:25 Completed CBC Stat Lab 11/03/25 18:25 Completed Comprehensive Metabolic Panel Stat Lab 11/03/25 18:25 Completed Partial Thromboplastin Time Stat Lab 11/03/25 18:25 Completed Troponin I Stat Lab 11/03/25 18:25 Completed VBG [Venous Blood Gas] Stat Lab 11/03/25 18:25 Completed Vital Signs Vital signs: Vital Signs Temperature 98.0 F 11/03/25 18:08 Pulse Rate 78 11/03/25 18:08 Respiratory Rate 19 11/03/25 18:08 Blood Pressure 146/73 H 11/03/25 18:08 Pulse Oximetry (%) 98 11/03/25 18:08 Oxygen Delivery Method Nasal Cannula 11/03/25 18:08 Oxygen Flow Rate 2 11/03/25 18:08 Shortness of Breath / Dyspnea MDM Narrative MDM Narrative:: 45-year-old male patient with significant history of obstructive sleep apnea, on home oxygen at home, came in with EMS for evaluation regarding shortness of breath. Patient called EMS today according to him because while lying in bed he developed shortness of breath. Per EMS patient was satting 94%. Patient denies any cough denies any chest pain denies any fever denies any other complaints. Patient chest x-ray showed no pneumonia except for possible mild heart failure. Patient's laboratory workup all came back unremarkable including CBC with no leukocytosis, VBG patient pO2 106. CMP showed no abnormality noted. EKG showed normal sinus rhythm, ventricular rate of 81 bpm, no ST segment ovation depression noted. Was noted to be satting 98% on 2 L patient using 2 L at home also. Patient was picked up by his mom. Patient data External records reviewed:: None Clinical information provided by:: patient and EMS Social determinants that could affect healthcare access:: none Patient has the following chronic illnesses:: Obstructive sleep apnea, morbid obesity diabetes mellitus How is presenting disease/condition affected by chronic disease/condition?: exacerbated by Evaluation data The following diagnostics were reviewed and interpreted by me:: lab results, radiology exam(s) and EKG tracing(s) Lab and/or radiology exams considered but not ordered:: None Interpretation Summary: See above Medications / Prescriptions Medications or Prescriptions considered but not ordered:: None Medication administrations:: None Consultations Consultation(s) initiated? (list below): No Diagnosis Shortness of Breath Differential Diagnosis: acute exacerbation of chronic obstructive airways disease, congestive heart failure and community acquired pneumonia Most likely diagnosis given after review of the tests above:: Shortness of breath, history of obstructive sleep apnea, morbid obesity Admission Indicated Admission indicated?: not indicated Admission Request Was there a request for admission?: No Disposition Plan Disposition Plan: Discharge Discharge Attestation Discharge Attestation: The patient was given an opportunity to ask questions and understood the discharge instructions. Discharge instructions specifically effects, indications for sooner follow up or return to the emergency department, and the expected course of current diagnosis. Patient condition: Stable Discharge Plan Plan Patient Disposition: HOME (Self Care) Discharge Disposition comment: Stable Prescriptions/Referrals Prescriptions/Med Rec: No Action metformin 500 mg tablet 500 mg PO BID Patient Comments: TAKE 1 TABLET BY MOUTH TWICE A DAY WITH FOOD fluticasone propionate 44 mcg/actuation HFA aerosol inhaler 44 mcg INHALATION PRN PRN (Reason: sob) cholecalciferol (vitamin D3) 50 mcg (2,000 unit) capsule 50 mcg PO DAILY Patient Comments: TAKE 1 TABLET ORALLY EVERY DAY amoxicillin-pot clavulanate 875-125 mg tablet 1 tab PO BID Qty: 14 0RF doxycycline hyclate 100 mg capsule 100 mg PO BID Qty: 10 0RF carvedilol 6.25 mg tablet 6.25 mg PO BID gemfibrozil 600 mg tablet 600 mg PO BID Patient Comments: TAKE 1 TABLET BY MOUTH TWICE A DAY 30 MINUTES BEFORE MORNING AND EVENING MEAL loratadine 10 mg tablet 10 mg PO QDAY Patient Comments: TAKE 1 TABLET BY MOUTH EVERY DAY (DME) [employer] 3 Sensor Device See Rx Instructions .Route Qty: 1 0RF Rx Instructions: As directed furosemide [Lasix] 20 mg tablet 20 mg PO QAM Qty: 30 0RF atorvastatin 20 mg tablet 20 mg PO HS 30 Days Qty: 0 0RF Patient Comments: TAKE 1 TABLET BY MOUTH EVERY DAY cetirizine 10 mg tablet 10 mg PO QDAY Patient Comments: TAKE 1 TABLET BY MOUTH EVERY DAY lisinopril 10 mg tablet 10 mg PO QDAY Patient Comments: TAKE 1 TABLET BY MOUTH EVERY DAY benztropine 1 mg tablet 1 mg PO BID Patient Comments: TAKE 1 TABLET BY MOUTH TWICE A DAY azelastine 137 mcg (0.1 %) spray,non-aerosol 2 spray INTRANASAL Q12H benzonatate 200 mg capsule 200 mg PO TID Patient Comments: TAKE 1 CAPSULE BY MOUTH THREE TIMES A DAY NEEDED FOR COUGH haloperidol 10 mg tablet 10 mg PO BID Patient Comments: TAKE 1 TABLET BY MOUTH TWICE A DAY alprazolam [Xanax] 0.5 mg tablet 0.5 mg PO BID PRN (Reason: anxiety) Qty: 10 0RF albuterol sulfate 90 mcg/actuation HFA aerosol inhaler 2 puff inhalation Q6H PRN (Reason: shortness of breath or wheezing) Qty: 8.5 0RF Referrals: Rod Hernandez PA-C [Primary Care Provider] - In 1 week Problem List Clinical Impression: Shortness of breath, Obesity hypoventilation syndrome Patient/Caregiver Discharge Instructions Discharge Activity: activity as tolerated Education Materials: Shortness of Breath Coping Additional Instructions: Thank you for the opportunity for serving you today. You are stable for discharged . You are advised to: Follow-up with your PCP in 1 to 2 days Return to ED for worsening of symptoms Your workup today all came back unremarkable. Including your chest x-ray. Print Language: Mohawk Stand Alone Forms: Domit[employer] Award Info., Patient Portal Info Letter JENNIFER/SHIRA Supervising Physician PA/SHIRA Supervising Physician: MD Doretha
[2025-11-03 18:36] LABS: Base Excess, Venous 2 (-3-3); O2 Saturation, Venous 99 % (96-97); PCO2, Venous 43 mmHg (36-56); PO2, Venous 106 mmHg (15-58); pH, Venous 7.41 (7.33-7.66)
[2025-11-03 18:38] LABS: Basophils # (Auto) 0.1 Thou/mm3 (0.0-0.2); Basophils % (Auto) 1 % (0-2.5); Eosinophils # (Auto) 0.2 Thou/mm3 (0.0-0.5); Eosinophils % (Auto) 3 % (0-10); Hematocrit 44.4 % (41.0-53.0); Hemoglobin 14.8 g/dL (13.5-16.0); Immature Granulocytes Auto 0.02 Thou/mm3 (0.00-0.00); Lymphocytes # (Auto) 1.8 Thou/mm3 (1.0-4.8); Lymphocytes % (Auto) 19 % (10-50); Mean Corpuscular HGB Conc 33.3 g/dl (31.0-37.0); Mean Corpuscular Hemoglobin 29.2 pg (25.0-35.0); Mean Corpuscular Volume 88 fL (80-100); Monocytes # (Auto) 0.5 Thou/mm3 (0.0-0.8); Monocytes % (Auto) 6 % (0-12); Neutrophils # (Auto) 6.7 Thou/mm3 (1.8-7.7); Neutrophils % (Auto) 72 % (37-80); Nucleated Red Blood Cell # 0.00 Thou/mm3 (0.00-0.00); Nucleated Red Blood Cell % 0 /100 WBC (0); Platelet Count 257 Thou/mm3 (140-440); RDW Standard Deviation 46.5 fL (35.1-43.9); Red Blood Count 5.07 Miln/mm3 (4.50-5.90); White Blood Count 9.3 Thou/mm3 (3.8-10.6)
[2025-11-03 19:19] LABS: Alanine Aminotransferase 66 U/L (10-49); Albumin, Serum 4.8 gm/dL (3.5-5.0); Albumin/Globulin Ratio 1.5 (1.2-2.2); Alkaline Phosphatase 87 U/L (46-116); Anion Gap 11 (7-16); Aspartate Amino Transferase 34 U/L (0-34); B-Type Natriuretic Peptide < 20 pg/mL (0-100); BUN/Creatinine Ratio 9 Ratio (12-20); Bilirubin,Total 0.4 mg/dL (0.3-1.2); Blood Urea Nitrogen 10 mg/dL (9-23); Calcium 9.9 mg/dL (8.3-10.6); Calcium (Corrected) 9.9 mg/dL (8.5-10.1); Carbon Dioxide 27.3 mMol/L (20.0-31.0); Chloride 102 mMol/L (98-107); Creatinine (Component) 1.1 mg/dL (0.6-1.3); Estimated Creatinine Clearance 117.2 mL/min (>60); Globulin 3.3 gm/dL (2.3-3.5); Glucose 97 mg/dL (74-106); Osmolality,Calculated 278 (275-295); Partial Thromboplastin Time 30.9 Seconds (22.0-36.0); Potassium 3.6 mMol/L (3.4-5.1); Sodium 140 mMol/L (136-145); Total Protein 8.1 gm/dL (5.7-8.2); Troponin I < 0.002 ng/mL (0.0-0.045); eGFR > 60 See Note
== END 2025-11-03 19:58 | disposition home or self-care (01) ==
PROVIDERS: Nurse Practitioner Family; Emergency Provider Emergency Medicine; PCP Physician Assistant
DX: R06.02 Shortness of breath (principal); E66.2 Morbid (severe) obesity with alveolar hypoventilation; R94.31 Abnormal electrocardiogram [ECG] [EKG]
CPT/HCPCS: 36415; 71045; 80053; 82803; 83880; 84484; 85025; 85730; 93005; 99283